=== PATIENT | male | born 1970 | race Caucasian/White ===

== ENCOUNTER 2023-12-17 13:25 | Inpatient (IN) | payer MEDICAID, SELFPAY ==
[2023-12-17] VITALS (7 sets, daily range): BP systolic 107–151; BP diastolic 66–97; PULSE 73–83; RESP 18; TEMP 36.4–36.8; O2SAT 91–95; BMI 34.0; BMI 32.9
--- NOTE | 2023-12-17 13:51 | EX.ED.SAOD ---
HPI <ROSA Araya - Last Filed: 12/17/23 15:58> History of Present Illness Chief Complaint: Substance Abuse Narrative Narrative: Patient presenting today requesting to detox from alcohol. He reports that he has detoxed in the past but never in this facility, the last time being last December. He reports that he has been drinking his entire adult life, he usually drinks about 1/5 of vodka per day. Today he had 3-4 drinks prior to arrival. He reports that he usually does go through withdrawal including shakes, sweats, and anxiety. He denies any history of withdrawal seizure. He reports that he does occasionally use other substances if they are available, last week he used methamphetamine and he does occasionally use marijuana. He denies a PMH of any chronic health conditions. PFS <ROSA Araya - Last Filed: 12/17/23 15:58> [facility] Medical History (Updated 12/17/23 @ 15:58 by ROSA Araya) Anxiety Depression Hypertension Home Medications amlodipine 5 mg tablet 5 mg PO DAILY 12/17/23 [History Last Taken 12/17/23] buspirone 10 mg tablet 10 mg PO TID 12/17/23 [History Last Taken 12/17/23] duloxetine 60 mg capsule,delayed release 60 mg PO DAILY 12/17/23 [History Last Taken Unknown] hydroxyzine pamoate 25 mg capsule 50 mg PO TID PRN anxiety 12/17/23 [History Last Taken 12/17/23] ibuprofen 600 mg tablet 600 mg PO TID PRN pain 12/17/23 [History Last Taken 12/17/23] Allergy/AdvReac Type Severity Reaction Status Date / Time No Known Allergies Allergy Verified 12/17/23 13:28 Social History Smoking Status: Current every day smoker tobacco type: cigarettes and smokeless tobacco ROS <ROSA Araya - Last Filed: 12/17/23 15:58> ROS ED Constitutional Constitutional ED: Denies chills or fever(s) Cardiovascular Cardiovascular: Denies chest pain Respiratory/Chest Respiratory/Chest: Denies cough or dyspnea Gastrointestinal Gastrointestinal: Denies abdominal pain, nausea or vomiting Musculoskeletal Musculoskeletal: Denies arthralgias or myalgias Integumentary Denies rash Neurologic Neurologic: Denies weakness Psychiatric Psychiatric: Denies anxiety, depression, suicidal ideation or suicidal thoughts EXAM <ROSA Araya - Last Filed: 12/17/23 15:58> Physical Exam Const Vital Signs: 12/17/23 13:26 12/17/23 14:26 12/17/23 14:45 Temperature 97.6 F L Temperature Source Temporal Pulse Rate 83 75 75 Respiratory Rate 18 18 18 Blood Pressure 151/94 H 129/82 H 107/66 Blood Pressure Mean 113 97 78 Pulse Ox 95 93 91 Oxygen Delivery Method Room Air Room Air Positive well nourished, well developed and no apparent distress General Appearance ED: well developed HEENT Reports normocephalic and head/scalp atraumatic Mouth ED: Yes moist mucous membranes normal Eyes PERRL and EOMs intact bilaterally Neck full ROM and supple Chest Wall inspection of chest normal Resp normal respiratory effort and clear to auscultation bilaterally Cardio regular rate and regular rhythm GI soft to palpation, non-tender, non-distended and no masses Back/Spine normal ROM and normal to inspection Extremity normal to inspection and full ROM Neuro oriented x3, CN's II-XII intact bilaterally, moves all extremities, no focal motor deficits and no sensory deficits noted Sensorium / Orientation: awake and alert Psych mental status grossly normal and thought process normal Skin no rashes or lesions noted and no wounds <Dr. Luca Gonzalez DO - Last Filed: 12/17/23 15:51> Physical Exam Const Vital Signs: 12/17/23 13:26 12/17/23 14:26 12/17/23 14:45 Temperature 97.6 F L Temperature Source Temporal Pulse Rate 83 75 75 Respiratory Rate 18 18 18 Blood Pressure 151/94 H 129/82 H 107/66 Blood Pressure Mean 113 97 78 Pulse Ox 95 93 91 Oxygen Delivery Method Room Air Room Air MDM <ROSA Araya - Last Filed: 12/17/23 15:58> [facility] MDM Narrative Medical decision making narrative: Patient presenting today requesting detox from alcohol. He is nontoxic-appearing and in no acute distress. He does not feel he is going through withdrawal at this time as he drank prior to coming in. Labs will be obtained and I will speak with the hospitalist for admission. Lab Data Lab results narrative: AST 60, ALT 89, alkaline phosphatase 121, alcohol 148, positive for cannabinoids Labs: Laboratory Results - last 24 hr 12/17/23 12/17/23 14:20 14:25 WBC 6.5 RBC 4.90 Hgb 14.9 Hct 44.5 MCV 90.8 MCH 30.4 MCHC 33.5 RDW Std Deviation 49.9 H RDW Coeff of Jacy 15.1 H Plt Count 241 MPV 9.0 Immature Gran % (Auto) 0.300 Neut % (Auto) 61.8 Lymph % (Auto) 25.3 [place] % (Auto) 9.2 Eos % (Auto) 2.5 Baso % (Auto) 0.9 Absolute Neuts (auto) 4.0 Absolute Lymphs (auto) 1.65 Nucleated RBC % 0 Sodium 140 Potassium 4.1 Chloride 108 H Carbon Dioxide 25.0 Anion Gap 7 BUN 13 Creatinine 0.94 Estim Creat Clear Calc 113.55 Est GFR (MDRD) Af Amer 107 Est GFR (MDRD) Non-Af 89 BUN/Creatinine Ratio 13.8 Glucose 80 Calcium 8.7 Total Bilirubin 0.50 AST 60 H ALT 89 H Alkaline Phosphatase 121 H Total Protein 7.5 Albumin 3.4 Globulin 4.1 Albumin/Globulin Ratio 0.8 L Urine Opiates Screen NEGATIVE Urine Methadone Screen NEGATIVE Ur Barbiturates Screen NEGATIVE Ur Phencyclidine Scrn NEGATIVE Ur Amphetamines Screen NEGATIVE MDMA (Ecstasy) Screen NEGATIVE U Benzodiazepines Scrn NEGATIVE Urine Cocaine Screen NEGATIVE U Cannabinoids Screen POSITIVE H Ur Drug Screen Comment Ethyl Alcohol 148.0 <Dr. Luca Gonzaelz, DO - Last Filed: 12/17/23 15:51> [facility] Lab Data Attestation: I reviewed the patient's lab results. Labs: Laboratory Results - last 24 hr 12/17/23 12/17/23 14:20 14:25 WBC 6.5 RBC 4.90 Hgb 14.9 Hct 44.5 MCV 90.8 MCH 30.4 MCHC 33.5 RDW Std Deviation 49.9 H RDW Coeff of Jacy 15.1 H Plt Count 241 MPV 9.0 Immature Gran % (Auto) 0.300 Neut % (Auto) 61.8 Lymph % (Auto) 25.3 [place] % (Auto) 9.2 Eos % (Auto) 2.5 Baso % (Auto) 0.9 Absolute Neuts (auto) 4.0 Absolute Lymphs (auto) 1.65 Nucleated RBC % 0 Sodium 140 Potassium 4.1 Chloride 108 H Carbon Dioxide 25.0 Anion Gap 7 BUN 13 Creatinine 0.94 Estim Creat Clear Calc 113.55 Est GFR (MDRD) Af Amer 107 Est GFR (MDRD) Non-Af 89 BUN/Creatinine Ratio 13.8 Glucose 80 Calcium 8.7 Total Bilirubin 0.50 AST 60 H ALT 89 H Alkaline Phosphatase 121 H Total Protein 7.5 Albumin 3.4 Globulin 4.1 Albumin/Globulin Ratio 0.8 L Urine Opiates Screen NEGATIVE Urine Methadone Screen NEGATIVE Ur Barbiturates Screen NEGATIVE Ur Phencyclidine Scrn NEGATIVE Ur Amphetamines Screen NEGATIVE MDMA (Ecstasy) Screen NEGATIVE U Benzodiazepines Scrn NEGATIVE Urine Cocaine Screen NEGATIVE U Cannabinoids Screen POSITIVE H Ur Drug Screen Comment Ethyl Alcohol 148.0 Treatment and Re-Evaluation Narrative: I have personally performed a face to face assessment of the patient and have reviewed the RENA Note. I performed a substantive portion of the visit including all aspects of the following. My robb findings include: History: Patient presents requesting detox from alcohol. Patient states he drinks approximately 1/5 of liquor per day. Patient states his last drink was this morning. Patient states he had 3-4 drinks this morning to prevent shaking and tremors. Patient denies any seizures. Patient states he also developed some sweats and chills. Patient states he has been weaning himself off for the past several days. Patient states he has a [facility]. Patient denies any suicidal or homicidal ideations. Exam: Vital signs are stable. Patient is afebrile. Patient is in no acute distress. Oral mucosa is pink and moist. Neck is supple. Trachea is midline. There is no JVD. Heart was regular rate and rhythm. Lungs are clear and equal bilaterally. Abdomen is soft. Bowel sounds are normal. There is no tenderness. Cranial nerves II through XII are intact. There are no focal motor or sensory deficits noted. Medical Decision Making: Medical screening labs will be obtained. CBC will be obtained to assess for leukocytosis and anemia. Comprehensive metabolic profile will be obtained to assess for hepatic function, renal function, and electrolyte abnormality. Serum alcohol level will be obtained to assess for alcohol intoxication. Urine drug screen will be obtained to assess for substance abuse. CBC was reviewed and was within normal limits. Comprehensive metabolic profile was reviewed. AST was slightly elevated at 60 and ALT was slightly elevated at 89. Alkaline phosphatase was minimally elevated at 121. The remainder is within normal limits. Urine tox screen was reviewed and was positive for cannabinoids. Serum alcohol level was reviewed and was elevated at 148. Case was discussed with the hospitalist. He will admit the patient to his service. Patient understood and was agreeable with the plan. All questions were answered. Discharge Plan Dx/Rx/DC Orders Clinical Impression: Alcohol withdrawal, Alcohol intoxication, Polysubstance abuse Disposition Disposition: Acute Care Hospital [facility]
[2023-12-17 14:30] LABS: Absolute Lymphocyte Count 1.65 X10^3/uL (0.83-4.51); Basophil# 0.06 X10^3/uL; Basophil% 0.9 % (0-1); Eosinophil# 0.16 X10^3/uL; Eosinophils% 2.5 % (0-5); Hematocrit 44.5 % (40-54); Hemoglobin 14.9 g/dL (13.0-16.5); Lymphocyte # 1.65 X10^3/ul (0.83-4.51); Lymphocyte % 25.3 % (19-41); Mean Corp Hgb Conc 33.5 g/dL (32-36); Mean Corpuscular Hgb 30.4 pg (27.0-32.0); Mean Corpuscular Volume 90.8 fL (80-94); Monocyte% 9.2 % (0-10); NRBC Flagged by Analyzer 0 % (0-5); Neutrophil # 4.04 X10^3/uL (2.7-7.7); Neutrophil % 61.8 % (47-70); Platelet Count 241 K/mm3 (150-450); RBC Distribution Width CV 15.1 % (11.6-14.6); RBC Distribution Width SD 49.9 fl (35.1-43.9); White Blood Count 6.5 K/mm3 (4.4-11.0)
[2023-12-17 14:47] LABS: ALB/GLOB Ratio 0.8 RATIO (0.9-2.4); AST(SGOT) 60 U/L (15-37); Alanine Aminotransfer ALT/SGPT 89 U/L (16-61); Albumin, Serum 3.4 g/dL (3.2-5.0); Alkaline Phosphatase 121 U/L (45-117); Anion Gap 7 (5-15); BUN 13 mg/dL (7-18); BUN/Creat Ratio 13.8 RATIO (10-20); Calcium,Total 8.7 mg/dL (8.5-10.1); Chloride 108 mmol/L (98-107); Creatinine, Serum 0.94 mg/dL (0.70-1.30); EST Glomerular Filtration Rate 89 mL/min (>60); Est Glom Filt Rate - Afr Amer 107 mL/min (>60); Estimated Creatinine Clearance 113.55 ml/min; Globulin 4.1 g/dL (2.2-4.2); Glucose 80 mg/dL (74-106); Potassium 4.1 mmol/L (3.5-5.1); Protein, Total 7.5 g/dL (6.4-8.2); Sodium Level 140 mmol/L (136-145)
[2023-12-17 15:16] LABS: Amphetamine Urine VISTA NEGATIVE (<1000 ng/mL); Barbiturate Urine VISTA NEGATIVE (< 200 ng/mL); Benzodiazepine Urine VISTA NEGATIVE (< 200 ng/mL); Cocaine Urine VISTA NEGATIVE (< 300 ng/mL); Ecstacy Urine VISTA NEGATIVE (< 500 ng/mL); Methadone Urine VISTA NEGATIVE (< 300 ng/mL); PCP Urine VISTA NEGATIVE (< 25 ng/mL); THC Urine VISTA POSITIVE (< 50 ng/mL); Vista UDS pH Range 6
--- NOTE | 2023-12-17 15:59 | NURSING ---
MED SURG JOPPERI ALCOHOL WITHDRAWAL, ALCOHOL INTOXICATION
--- NOTE | 2023-12-17 16:11 | PCM.HP.STD ---
HPI - General General Date of Service: 12/17/23 Chief Complaint: Alcohol withdrawal HPI Narrative LUCA WAETRS, is a 53 M who presents seeking treatment for alcohol withdrawal. Patient had been sober for period time but in the middle of September, started drinking again. Was drinking about 1/5 of liquor a day. Over the past week, he has been attempting to taper that down. Has been working with [employer] and has a bed available at the [facility] but they want him to go through this withdrawal program here at [facility] before enrolling into the residential program. Patient's last drink was this morning where he had a few drinks. Currently he has no withdrawal symptoms. [facility] Medical History Anxiety Depression Hypertension Home Medications amlodipine 5 mg tablet 5 mg PO DAILY 12/17/23 [History Last Taken 12/17/23] buspirone 10 mg tablet 10 mg PO TID 12/17/23 [History Last Taken 12/17/23] duloxetine 60 mg capsule,delayed release 60 mg PO DAILY 12/17/23 [History Last Taken 12/17/23] hydroxyzine pamoate 25 mg capsule 50 mg PO TID PRN anxiety 12/17/23 [History Last Taken 12/17/23] ibuprofen 600 mg tablet 600 mg PO TID PRN pain 12/17/23 [History Last Taken 12/17/23] Allergy/AdvReac Type Severity Reaction Status Date / Time No Known Allergies Allergy Verified 12/17/23 13:28 Family History (Updated 12/17/23 @ 16:[address] Luca Villalobos DO) Other Alcoholism Social History (Updated 12/17/23 @ 16:[address] Luca Villalobos DO) Smokeless tobacco user: other substance use type: marijuana and amphetamines ROS ROS Narrative All review of systems were negative except as mentioned above in the history of present illness and the other review of systems. Vital Signs Vital Signs Vital Signs: 12/17/23 13:26 12/17/23 14:26 12/17/23 14:45 Temperature 36.4 C L Temperature Source Temporal Pulse Rate 83 75 75 Respiratory Rate 18 18 18 Blood Pressure 151/94 H 129/82 H 107/66 Blood Pressure Mean 113 97 78 Pulse Ox 95 93 91 Oxygen Delivery Method Room Air Room Air 12/17/23 15:45 12/17/23 16:00 Temperature 36.8 C 36.8 C Temperature Source Oral Pulse Rate 73 73 Respiratory Rate 18 18 Blood Pressure 129/82 H 129/82 H Blood Pressure Mean 97 97 Pulse Ox 95 95 Oxygen Delivery Method Room Air Weight Weight: 110.45 kg Body Mass Index (BMI) 34.0 Physical Exam Narrative - Physical Exam General: Alert, Oriented x3, Cooperative HEENT: Atraumatic, PERRLA, EOMI, Normocephalic Oral: Moist Mucosa, No Gingival or Mucosal Lesions/ Ulcerations Neck: Supple, No JVD, Negative Carotid Bruits Lungs: Clear to auscultation, Normal air movement Cardiovascular: Regular rate, Normal S1, Normal S2, No murmurs Abdomen: Bowel Sounds Present, Soft, Non Tender, Non-Distended, No Hepato-splenomegaly Extremities: No clubbing, No cyanosis, No edema, Capillary Refill Less than 3 Seconds Skin: No rashes, No breakdown Musculoskeletal: No Tenderness to Palpation of Joints or Extremities Neurological: Neuro grossly intact Psych/Mental Status: Normal Affect, Appropriate Results Lab / Micro Data 12/17/23 14:20 12/17/23 14:20 Labs: Laboratory Results - last 24 hr 12/17/23 14:20: WBC 6.5, RBC 4.90, Hgb 14.9, Hct 44.5, MCV 90.8, MCH 30.4, MCHC 33.5, RDW Std Deviation 49.9 H, RDW Coeff of Jacy 15.1 H, Plt Count 241, MPV 9.0, Immature Gran % (Auto) 0.300, Neut % (Auto) 61.8, Lymph % (Auto) 25.3, [place] % (Auto) 9.2, Eos % (Auto) 2.5, Baso % (Auto) 0.9, Absolute Neuts (auto) 4.0, Absolute Lymphs (auto) 1.65, Nucleated RBC % 0, Sodium 140, Potassium 4.1, Chloride 108 H, Carbon Dioxide 25.0, Anion Gap 7, BUN 13, Creatinine 0.94, Estim Creat Clear Calc 113.55, Est GFR (MDRD) Af Amer 107, Est GFR (MDRD) Non-Af 89, BUN/Creatinine Ratio 13.8, Glucose 80, Calcium 8.7, Total Bilirubin 0.50, AST 60 H, ALT 89 H, Alkaline Phosphatase 121 H, Total Protein 7.5, Albumin 3.4, Globulin 4.1, Albumin/Globulin Ratio 0.8 L, Ethyl Alcohol 148.0 12/17/23 14:25: Urine Opiates Screen NEGATIVE, Urine Methadone Screen NEGATIVE, Ur Barbiturates Screen NEGATIVE, Ur Phencyclidine Scrn NEGATIVE, Ur Amphetamines Screen NEGATIVE, MDMA (Ecstasy) Screen NEGATIVE, U Benzodiazepines Scrn NEGATIVE, Urine Cocaine Screen NEGATIVE, U Cannabinoids Screen POSITIVE H, Ur Drug Screen Comment Assessment & Plan Assessment/Plan (1) Alcohol withdrawal: PLAN: Plan Anticipated alcohol withdrawal Patient not actively going through alcohol withdrawal at present but do anticipate him to start going through alcohol withdrawal within the day. Severity which will be determined but patient will be on the CIWA protocol. Have phenobarbital taper available as well as other adjunctive medications to help with his withdrawal symptoms. Thiamine and folate Patient has been working with [employer] and the plan is for [facility] to [facility] once he has completed his treatment in the hospital. Addiction medicine to assist with this disposition. Chronic conditions Hypertension: Continue with amlodipine Depression: Continue with buspirone, duloxetine. Nicotine abuse: Patient uses oral nicotine. Will have nicotine gum available. VTE prophylaxis: Not indicated given observation status. Charges/Coding Visit Charges Inpatient E&M: 82269 Init Hosp L2
[2023-12-17] MEDS: Phenobarbital 32.4 MG Tablet 64.8 MG PO ×2 (17:55→21:02)
[2023-12-17] MEDS: hydrOXYzine PAM 25 MG Capsule PO (21:06)
[2023-12-17] MEDS: Ibuprofen 600 MG Tablet PO (21:06)
[2023-12-17] MEDS: 0.9% Saline Lock 10 ML Syringe IV (21:06)
[2023-12-17] MEDS: busPIRone 15 MG TABLET 7.5 MG PO (21:07)
[2023-12-17] MEDS: traZODone 100 MG Tablet PO (22:39)
[2023-12-18] VITALS (8 sets, daily range): BP systolic 135–148; BP diastolic 75–96; PULSE 55–73; RESP 18–20; TEMP 36.5–37; O2SAT 94–97
[2023-12-18] MEDS: Phenobarbital 32.4 MG Tablet 64.8 MG PO ×6 (01:48→22:01)
[2023-12-18] MEDS: Ibuprofen 600 MG Tablet PO ×3 (05:41→22:02)
[2023-12-18] MEDS: hydrOXYzine PAM 25 MG Capsule PO ×3 (05:42→22:02)
[2023-12-18] MEDS: Folic Acid 1 MG Tablet PO (08:28)
[2023-12-18] MEDS: Thiamine Hydrochloride 100 MG Tablet PO (08:28)
--- NOTE | 2023-12-18 09:58 | PN.HOSP_ITS ---
Reason for Visit Reason for Visit: Diagnoses Alcohol use, unspecified with withdrawal, unspecified (12/17/23) Subjective Subjective Patient was seen and examined today, he has no complaints of any tremor or anxiety at this time, patient was admitted for alcohol detox yesterday. Patient states he has never been through detox here although he has been through detox in the past-the last time appears to be December 2022 per medical record. Objective Data Objective Data Vital Signs: Vital Signs Temp Pulse Resp BP Pulse Ox O2 Del Method 98.6 F 55 L 18 137/96 H 94 Room Air 12/18/23 05:40 12/18/23 05:40 12/18/23 05:40 12/18/23 05:40 12/18/23 05:40 12/18/23 05:40 Oxygen Delivery Method Room Air Weight: 107.093 kg Body Mass Index (BMI) 32.9 Intake & Output: Intake and Output for Last 24 Hours 12/16/23 12/17/23 12/18/23 23:59 23:59 23:59 Intake Total 1300 / 1300 200 / 200 Balance 1300 / 1300 200 / 200 Lab / Micro Data 12/17/23 14:20 12/17/23 14:20 Labs: Laboratory Results - last 24 hr 12/17/23 14:20: WBC 6.5, RBC 4.90, Hgb 14.9, Hct 44.5, MCV 90.8, MCH 30.4, MCHC 33.5, RDW Std Deviation 49.9 H, RDW Coeff of Jacy 15.1 H, Plt Count 241, MPV 9.0, Immature Gran % (Auto) 0.300, Neut % (Auto) 61.8, Lymph % (Auto) 25.3, [place] % (Auto) 9.2, Eos % (Auto) 2.5, Baso % (Auto) 0.9, Absolute Neuts (auto) 4.0, Absolute Lymphs (auto) 1.65, Nucleated RBC % 0, Sodium 140, Potassium 4.1, Chloride 108 H, Carbon Dioxide 25.0, Anion Gap 7, BUN 13, Creatinine 0.94, Estim Creat Clear Calc 113.55, Est GFR (MDRD) Af Amer 107, Est GFR (MDRD) Non-Af 89, BUN/Creatinine Ratio 13.8, Glucose 80, Calcium 8.7, Total Bilirubin 0.50, AST 60 H, ALT 89 H, Alkaline Phosphatase 121 H, Total Protein 7.5, Albumin 3.4, Globulin 4.1, Albumin/Globulin Ratio 0.8 L, Ethyl Alcohol 148.0 12/17/23 14:25: Urine Opiates Screen NEGATIVE, Urine Methadone Screen NEGATIVE, Ur Barbiturates Screen NEGATIVE, Ur Phencyclidine Scrn NEGATIVE, Ur Amphetamines Screen NEGATIVE, MDMA (Ecstasy) Screen NEGATIVE, U Benzodiazepines Scrn NEGATIVE, Urine Cocaine Screen NEGATIVE, U Cannabinoids Screen POSITIVE H, Ur Drug Screen Comment Physical Exam Const alert, oriented x3, no apparent distress and healthy appearing General Appearance: cooperative, well kempt and well developed Orientation / Consciousness: awake, oriented to person, oriented to place and oriented to time HEENT normocephalic and moist oral mucous membranes Eyes PERRL, EOMs intact bilaterally and conjunctivae normal Neck supple, no JVD, thyroid normal and no carotid bruits General: trachea midline Resp normal respiratory effort and clear to auscultation bilaterally Auscultation: Negative for rales, rhonchi or wheezes Cardio regular rate, regular rhythm, no murmurs, no rub and no gallops GI normal to inspection, nondistended, normoactive bowel sounds, soft to palpation, non-tender and non-distended Extremity no clubbing, cyanosis or edema Skin no rashes or lesions noted General Skin Exam: no breakdown Neuro oriented x3, CN's II-XII intact bilaterally, no focal motor deficits and no sensory deficits noted Sensorium / Orientation: awake and alert Speech: speech normal Psych affect normal Assessment & Plan Assessment/Plan (1) Alcohol withdrawal: PLAN: Plan 1. Acute alcohol withdrawal-patient will be given medication per protocol, he will be seen by addiction social science instructor tomorrow #2 chronic alcoholism-complicates care, management, recovery, and prognosis #3 hypertension-patient will remain on his home medication, he will be adjusted as needed, blood pressure will be monitored #4 chronic depression-patient is on Cymbalta #5 polysubstance abuse-complicates care, management, recovery, and prognosis Total clinical time spent by myself addressing the patient's medical issues, reviewing all of his data, and collaborating with the patient's care team: 35- minute Charges/Coding Visit Charges Inpatient E&M: 78868 Subs Hosp L2
[2023-12-18] MEDS: busPIRone 15 MG TABLET 7.5 MG PO ×2 (10:03→22:02)
[2023-12-18] MEDS: DULoxetine Hcl 60 MG Capsule PO (10:03)
[2023-12-18] MEDS: amLODIPine 5 MG Tablet PO (10:03)
[2023-12-18] MEDS: Gabapentin 300 MG Capsule PO (17:57)
[2023-12-18] MEDS: traZODone 100 MG Tablet PO (22:05)
[2023-12-19] MEDS: Phenobarbital 32.4 MG Tablet 64.8 MG PO ×3 (01:53→09:53)
[2023-12-19] MEDS: hydrOXYzine PAM 25 MG Capsule PO (06:02)
[2023-12-19] MEDS: Ibuprofen 600 MG Tablet PO (06:02)
[2023-12-19 06:06] VITALS: BP 127/85; PULSE 62; RESP 18; TEMP 36.4; O2SAT 94
--- NOTE | 2023-12-19 08:58 | PCM.DC.SUM ---
Providers Date of Admission: 12/17/23 Date of Discharge: 12/19/23 Primary Care Physician: Isabela Primary Care Phys Reason For Visit: ALCOHOL DETOX Diagnosis Discharge Diagnosis (1) Alcohol withdrawal: Status: Acute Code(s): F10.939 - Alcohol use, unspecified with withdrawal, unspecified Medications at Discharge Home Medications amlodipine 5 mg tablet 5 mg PO DAILY 12/17/23 buspirone 10 mg tablet 10 mg PO TID 12/17/23 duloxetine 60 mg capsule,delayed release 60 mg PO DAILY 12/17/23 hydroxyzine pamoate 25 mg capsule 50 mg PO TID PRN anxiety 12/17/23 ibuprofen 600 mg tablet 600 mg PO TID PRN pain 12/17/23 Hospital Course Summary of Care Provided Minutes Spent on Discharge: 32 Hospital Course: Patient is a 53-year-old gentleman with history of polysubstance dependence including alcohol presented with acute alcohol withdrawal Acute alcohol withdrawal ? Patient admitted to regular nursing floor managed with phenobarb taper. Discharged home to follow-up with 180 as outpatient 2. Hypertension - Blood pressure controlled, home medications continued with dose adjustment as needed 3. Class I obesity with BMI of 33 ? Weight loss advised 4. Depression ? Patient is on duloxetine did continue 5. Polysubstance dependence ? Including history of amphetamine use complicating care, counseled on cessation Physical Exam Const Constitutional Narrative: GENERAL: cooperative HEENT: Atraumatic; normocephalic EYES; Anicteric, Normal Conjunctiva NECK; supple, normal thyroid, RESPIRATORY: Diminished to auscultation CARDIOVASCULAR: Regular S1 S2, GI: soft, normoactive bowel sounds, : No Renal angle tenderness; EXTREMITIES: No edema, no clubbing, MUSCULOSKELETAL: no muscle wasting NEURO: Awake; no lateralizing signs. SKIN: No Rash PSYCH; Flat affect Weight / BMI Weight Weight: 107.093 kg Body Mass Index (BMI) 32.9 ABG / Lab / Microbiology Data 12/17/23 14:20 12/17/23 14:20 D/C Instructions Discharge Diet: No restrictions Discharge Activity: Return to Normal Activity Call your doctor if you observe: Fever of 101 or Higher, Shortness of breath, Fainting spells and Chest pain Meaningful Use Info Meaningful Use Diagnoses (Choose all that apply): None applicable Discharge Plan Admission Admit Date/Time: 12/17/23 15:51 Attending Provider: Umang Bassett Primary Care Provider: Care Physician,No Primary Consulting Providers: Luca Villalobos; Anatoly Peck Discharge Orders/Prescriptions Prescriptions: No Action amlodipine 5 mg tablet 5 mg PO DAILY ibuprofen 600 mg tablet 600 mg PO TID PRN (Reason: pain) Patient Comments: PT ONLY TAKES 1-2 TIMES A DAY hydroxyzine pamoate 25 mg capsule 50 mg PO TID PRN (Reason: anxiety) duloxetine 60 mg capsule,delayed release(DR/EC) 60 mg PO DAILY buspirone 10 mg tablet 10 mg PO TID Referrals / Follow Up: Care Physician,No Primary [Primary Care Provider] - Disposition Disposition (needs filled in before D/C Order can be placed): Home, Self Care Charges/Coding Visit Charges Inpatient E&M: 96013 Disch Hosp >30min
[2023-12-19] MEDS: Thiamine Hydrochloride 100 MG Tablet PO (09:53)
[2023-12-19] MEDS: Folic Acid 1 MG Tablet PO (09:53)
[2023-12-19] MEDS: amLODIPine 5 MG Tablet PO (09:53)
[2023-12-19] MEDS: DULoxetine Hcl 60 MG Capsule PO (09:53)
[2023-12-19] MEDS: busPIRone 15 MG TABLET 7.5 MG PO (09:54)
[2023-12-19 10:00] VITALS: BP 130/85; PULSE 55; RESP 14; TEMP 36.5; O2SAT 97
--- NOTE | 2023-12-19 10:09 | PHA.DC.MR.R ---
Pharmacy [place] Med Reconciliation Pharmacy Service has performed discharge medication reconciliation for this patient. The patient's discharge medication list was reviewed for discrepancies and discrepancies were resolved. Medications at Discharge Home Medications amlodipine 5 mg tablet 5 mg PO DAILY 12/17/23 buspirone 10 mg tablet 10 mg PO TID 12/17/23 duloxetine 60 mg capsule,delayed release 60 mg PO DAILY 12/17/23 hydroxyzine pamoate 25 mg capsule 50 mg PO TID PRN anxiety 12/17/23 ibuprofen 600 mg tablet 600 mg PO TID PRN pain 12/17/23
--- NOTE | 2023-12-19 10:19 | ADDICTION ---
Met w/pt to complete RAMP assessments. Pt has been approved for residential treatment at [facility]. Pt was screened for Vivitrol. Pt met criteria and will be given his first shot prior to d/c. He will follow up with Dr. Sharma for continued doses. Pt will be transported to [facility] by [facility] this afternoon.
[2023-12-19] MEDS: Naltrexone Microspheres 380 MG SYRINGE IM (12:09)
== END 2023-12-19 13:00 | disposition home or self-care (01) | DRG 772 ==
LOC: ED 15:51 → MS3 18:20
PROVIDERS: Physician Assistant; Emergency Provider Emergency Medicine; Visit Provider Internal Medicine
DX: F10.220 Alcohol dependence with intoxication, uncomplicated (principal); E66.9 Obesity, unspecified; F19.10 Other psychoactive substance abuse, uncomplicated; F10.239 Alcohol dependence with withdrawal, unspecified; I10 Essential (primary) hypertension; F32.A Depression, unspecified; F15.90 Other stimulant use, unspecified, uncomplicated; F12.90 Cannabis use, unspecified, uncomplicated; F41.9 Anxiety disorder, unspecified; F17.220 Nicotine dependence, chewing tobacco, uncomplicated; F17.210 Nicotine dependence, cigarettes, uncomplicated; Y90.6 Blood alcohol level of 120-199 mg/100 ml; Z68.33 Body mass index [BMI] 33.0-33.9, adult
CPT/HCPCS: 80053; 80307; 80320; 85025; 99283; A4216; G0480

== ENCOUNTER 2025-02-15 15:32 | Observation (INO) | payer MEDICAID, SELFPAY ==
[2025-02-15] VITALS (7 sets, daily range): BP systolic 117–136; BP diastolic 73–99; PULSE 78–98; RESP 15–22; TEMP 36.4–36.9; O2SAT 96–100; BMI 35.6; BMI 35.5
--- NOTE | 2025-02-15 15:47 | EKG12_ITS ---
Test Reason : SUB ABUSE Blood Pressure : */* mmHG Vent. Rate : 99 BPM Atrial Rate : 86 BPM P-R Int : 138 ms QRS Dur : 84 ms QT Int : 390 ms P-R-T Axes : 37 15 14 degrees QTcB Int : 500 ms Sinus rhythm with Premature supraventricular complexes Nonspecific ST abnormality Prolonged QT Abnormal ECG Confirmed by Blas Bergman ([id number]), subeditor PERI UGALDE ([id number]) on 02/18/2025 10:49:48 AM Referred By: Kris Wood Confirmed By: Blas Bergman
--- NOTE | 2025-02-15 15:49 | EX.ED.SAOD ---
HPI History of Present Illness Chief Complaint: Substance Abuse Detail of Chief Complaint: Requesting detox from alcohol Informant: patient Narrative Narrative: Patient presents to the emergency department requesting detox from alcohol. Patient states that he was admitted about a year and a half ago for same and had done relatively well. Patient states that he relapsed for the first time in September of this year and had been staying in a sober home. Patient had a blowup with him roommate yesterday and he was kicked out of this sober home. Patient states his last drink was about an hour ago. Normally he drinks about 1/5-1/5 and a half of liquor and beer combined over the course of the day. Has had intermittent nausea and vomiting. He denies blood in stool or black tarry stool. He also describes some chest pressure that he has sometimes when he drinks but not necessarily exertional. Patient has history of a ablation in 2019. No heart history otherwise. He has no stenting. He does smoke cigarettes. [facility] Medical History Anxiety Depression Hypertension Home Medications ?Medication ?Instructions ?Recorded ?Last Taken ?Type amlodipine 5 mg tablet 5 mg PO DAILY 12/17/23 02/15/25 History buspirone 10 mg tablet 10 mg PO TID 12/17/23 02/15/25 History duloxetine 60 mg capsule,delayed 60 mg PO DAILY 12/17/23 02/15/25 History release hydroxyzine pamoate 25 mg capsule 50 mg PO TID PRN anxiety 12/17/23 02/15/25 History ibuprofen 600 mg tablet 600 mg PO TID PRN pain 12/17/23 02/15/25 History duloxetine 30 mg capsule,delayed 30 mg PO QHS 02/15/25 Unknown History release Allergy/AdvReac Type Severity Reaction Status Date / Time No Known Allergies Allergy Verified 02/15/25 15:33 Family History (Updated 12/17/23 @ 16:[address] Luca Villalobos DO) Other Alcoholism Social History (Updated 12/17/23 @ 16:[address] Luca Villalobos DO) Smoking Status: Current every day smoker tobacco type: cigarettes Smokeless tobacco user: other substance use type: marijuana and amphetamines ROS ROS ED Review of Systems ROS Unobtainable: other Constitutional Constitutional ED: Reports lethargy; Denies chills, fever(s), sweats or weight loss Eyes Eyes: Denies blurry vision, change in vision or diplopia ENT ENT ED: Denies rhinorrhea or sore throat Cardiovascular Cardiovascular: Reports chest pain; Denies orthopnea or racing heartbeat Respiratory/Chest Respiratory/Chest: Denies cough, dyspnea, dyspnea on exertion, orthopnea or sputum Gastrointestinal Gastrointestinal: Reports nausea and vomiting; Denies abdominal pain or diarrhea Genitourinary Genitourinary ED: Denies dysuria, hematuria or urinary frequency Musculoskeletal Musculoskeletal: Denies arthralgias, back pain, myalgias or neck pain Integumentary Denies abscess, Abrasions or rash Neurologic Neurologic: Denies headache(s) or weakness Psychiatric Psychiatric: Denies anxiety, depression or suicidal thoughts Endocrine Endocrinology: Denies polydipsia, polyphagia or polyuria Hematologic/Lymphatic Hematologic/Lymphatic: Denies easy bleeding, easy bruising or lymphadenopathy Allergic/Immunologic Allergic/Immunologic ED: Denies mouth swelling, tongue swelling or urticaria EXAM Physical Exam Const Vital Signs: 02/15/25 15:33 02/15/25 16:33 02/15/25 17:00 Temperature 97.8 F Temperature Source Temporal Pulse Rate 98 94 78 Respiratory Rate 18 22 H 15 Blood Pressure 136/99 H 117/73 118/78 Blood Pressure Mean 111 87 91 Pulse Ox 100 98 96 Oxygen Delivery Method Room Air Room Air Room Air 02/15/25 17:34 Temperature 98.4 F Temperature Source Pulse Rate 78 Respiratory Rate 16 Blood Pressure 118/78 Blood Pressure Mean 91 Pulse Ox 96 Oxygen Delivery Method Positive well nourished and well developed General Appearance ED: well developed and NAD HEENT Reports TM's clear and moist mucous membranes normocephalic and atraumatic; Negative for trauma or tenderness Tympanic Membrane ED: Yes TM's clear Eyes PERRL and EOMs intact bilaterally General Eye ED: Negative for pale conjunctiva or scleral icterus Neck no lymphadenopathy, supple and no JVD General: Negative for tenderness Chest Wall inspection of chest normal and palpation of chest normal Chest: Negative for tenderness Resp normal respiratory effort and clear to auscultation bilaterally Effort and Inspection: Negative for respiratory distress or pain with movement Auscultation: Negative for rhonchi, wheezes or diminished lung sounds Cardio regular rate, regular rhythm, S1 normal heart sound, S2 normal heart sound and no murmurs Peripheral Pulses: pulses 2+ throughout GI normal to inspection, nondistended, normoactive bowel sounds, soft to palpation, non-tender, non-distended and no masses Back/Spine no CVA tenderness and no thoracic nor lumbar tenderness Extremity normal to inspection General Extremety ED: Negative for edema General Extremity: Negative for edema Neuro oriented x3, CN's II-XII intact bilaterally, no sensory deficits noted and gait normal Sensorium / Orientation: awake, alert, oriented to person, oriented to place and oriented to time Motor Exam: strength 5/5 throughout and strength abnormal Psych mental status grossly normal Skin no rashes or lesions noted and no wounds MDM MDM MDM Narrative Medical decision making narrative: Patient presents to the ER requesting detox from alcohol. Mentions that has been having some chest pressure or discomfort when he is drinking. Does not typically noted when he is not drinking. It is not exertional. He has no heart history. IV line established. EKG obtained arrival shows sinus rhythm with ventricular rate of [address] changes and PACs. CBC with differential shows a white count of 6.9 with hemoglobin 14.8 and platelet count of 216. Chemistries unremarkable. Glucose 142. AST was elevated 153 and ALT was 115. Alcohol was 97.6. Toxicology screen pending. Troponin was normal at 15. Discussed case with hospitalist to evaluate patient for admission for alcohol detox. I do not feel he is having acute coronary syndrome. Lab Data Attestation: I reviewed the patient's lab results. Labs: Laboratory Results - last 24 hr 02/15/25 15:55 WBC 6.9 RBC 4.82 Hgb 14.8 Hct 42.9 MCV 89.0 MCH 30.7 MCHC 34.5 RDW Std Deviation 40.0 RDW Coeff of Jacy 12.1 Plt Count 216 MPV 9.1 Immature Gran % (Auto) 0.300 Neut % (Auto) 66.2 Lymph % (Auto) 23.7 [place] % (Auto) 6.9 Eos % (Auto) 1.9 Baso % (Auto) 1.0 Absolute Neuts (auto) 4.6 Absolute Lymphs (auto) 1.64 Nucleated RBC % 0 Sodium 135 Potassium 3.3 Chloride 96 L Carbon Dioxide 20.7 L Anion Gap 18 H BUN 17 Creatinine 1.19 Estim Creat Clear Calc 87.20 Est GFR (MDRD) Non-Af 72 BUN/Creatinine Ratio 14.6 Glucose 142 H Calcium 9.3 Total Bilirubin 1.02 AST 153 H ALT 115 H Alkaline Phosphatase 112 Troponin T High Sens 15 Total Protein 7.8 Albumin 4.5 Globulin 3.2 Albumin/Globulin Ratio 1.4 Ethyl Alcohol 97.6 H EKG Initial EKG: Attestation: I personally reviewed and interpreted this EKG as follows: Comments: Sinus rhythm with ventricular rate of of [address] changes and PACs Prior EKG tracings: not available for review Discharge Plan Triage Chief Complaint: Substance Abuse ED Provider: Kris Wood Dx/Rx/DC Orders Clinical Impression: Alcohol intoxication, Desire for detoxification Prescriptions: No Action amlodipine 5 mg tablet 5 mg PO DAILY ibuprofen 600 mg tablet 600 mg PO TID PRN (Reason: pain) Patient Comments: PT ONLY TAKES 1-2 TIMES A DAY hydroxyzine pamoate 25 mg capsule 50 mg PO TID PRN (Reason: anxiety) duloxetine 60 mg capsule,delayed release(DR/EC) 60 mg PO DAILY buspirone 10 mg tablet 10 mg PO TID duloxetine 30 mg capsule,delayed release(DR/EC) 30 mg PO QHS Primary Care Provider: Juanis Vazquez Referrals: Care Physician,No Primary [Non-Staff] - Print Language: Chinese Disposition Disposition: Acute Care [facility]
[2025-02-15] MEDS: Lorazepam 2 MG/ML WCH Syringe 1 MG IV (15:58)
[2025-02-15] MEDS: Ondansetron 4 MG/2 ML Vial IV (15:58)
[2025-02-15 16:26] LABS: Absolute Lymphocyte Count 1.64 X10^3/uL (0.83-4.51); Absolute Neutrophil Count 4.6 X10^3/uL (2.0-7.7); Basophil# 0.07 X10^3/uL; Eosinophil# 0.13 X10^3/uL; Eosinophils% 1.9 % (0-5); Hematocrit 42.9 % (40-54); Hemoglobin 14.8 g/dL (13.0-16.5); Lymphocyte # 1.64 X10^3/ul (0.83-4.51); Lymphocyte % 23.7 % (19-41); Mean Corp Hgb Conc 34.5 g/dL (32-36); Mean Corpuscular Hgb 30.7 pg (27.0-32.0); Mean Platelet Vol. 9.1 fl (6.2-12.0); Monocyte# 0.48 X10^3/uL; Monocyte% 6.9 % (0-10); NRBC Flagged by Analyzer 0 % (0-5); Neutrophil # 4.59 X10^3/uL (2.7-7.7); Neutrophil % 66.2 % (47-70); Platelet Count 216 K/mm3 (150-450); RBC Distribution Width CV 12.1 % (11.6-14.6); Red Blood Count 4.82 M/mm3 (4.6-6.2); White Blood Count 6.9 K/mm3 (4.4-11.0)
[2025-02-15 16:32] LABS: Troponin T High Sensitivity 15 ng/L (<=22)
[2025-02-15 16:36] LABS: Alcohol, Blood (Medical)-Serum 97.6 mg/dL (<=10.0)
--- NOTE | 2025-02-15 17:14 | CM.ED ---
Social Work SW met with patient, introduced self and role at [facility]. Patient accepting of visit. Patient presented to ED for the RAMP program, however stated concerns related to his Care source lapsing. FLORENTINO offered to contact Phuong with [facility] to meet with patient on Tuesday to reestablish coverage. Patient thankful for same. Phuong called, message left for Phuong to meet with patient on Tuesday. No further needs identified at this time. Adrienne Peña, RADIAL SAW OPERATOR, FAMILY HEALTH NURSE PRACTITIONER
[2025-02-15 17:29] LABS: ALB/GLOB Ratio 1.4 RATIO (0.9-2.4); AST(SGOT) 153 U/L (<=37); Alanine Aminotransfer ALT/SGPT 115 U/L (<=46); Albumin, Serum 4.5 g/dL (3.5-5.0); Alkaline Phosphatase 112 U/L (40-129); Anion Gap 18 (5-15); BUN 17 mg/dL (4-19); BUN/Creat Ratio 14.6 RATIO (10-20); Calcium,Total 9.3 mg/dL (7.6-11.0); Carbon Dioxide 20.7 mmol/L (21.0-32.0); Chloride 96 mmol/L (98-108); Creatinine, Serum 1.19 mg/dL (0.70-1.20); EST Glomerular Filtration Rate 72 (>60); Globulin 3.2 g/dL (2.2-4.2); Glucose 142 mg/dL (70-99); Potassium 3.3 mmol/L (3.3-5.1); Protein, Total 7.8 g/dL (5.9-8.4); Sodium Level 135 mmol/L (133-145); Total Bilirubin 1.02 mg/dL (0.00-1.30)
--- NOTE | 2025-02-15 17:42 | PCM.HP.STD ---
HPI - General General Date of Admission: 02/15/25 Date of Service: 02/15/25 Chief Complaint: Alcohol detoxification HPI Narrative LUCA WATERS, is a 55 M with past medical history of anxiety, depression, alcohol use disorder, nicotine abuse who presents to the ED with desire for alcohol detoxification He is a heavy alcohol user and his last drink was about 1 hour before presentation, drinks about 1/5 of locating a liquor every day and smokes half pack cigarettes daily, no other drug use. Previously admitted to [facility] for detoxification about 14 months back, and maintain sobriety for 10 months, but has been drinking steadily for the last 4 months No symptoms other than that Has been compliant with his medications for hypertension and depression Has good social support At the time of presentation in the ED BP 118/78, pulse 78, temp 98.4, oxygen saturation 96 WBC 6.9, hemoglobin 14.8, platelet count 216, sodium 135, potassium 3.3, chloride 96, BUN 17, creatinine 1.1, AST 153, ALT 115 alk phos 112, troponin T 15, bilirubin 1.02, Ethyl alcohol 97.6 [facility] Medical History Anxiety Depression Hypertension Home Medications ?Medication ?Instructions ?Recorded ?Last Taken ?Type amlodipine 5 mg tablet 5 mg PO DAILY 12/17/23 02/15/25 History buspirone 10 mg tablet 10 mg PO TID 12/17/23 02/15/25 History duloxetine 60 mg capsule,delayed 60 mg PO DAILY 12/17/23 02/15/25 History release hydroxyzine pamoate 25 mg capsule 50 mg PO TID PRN anxiety 12/17/23 02/15/25 History ibuprofen 600 mg tablet 600 mg PO TID PRN pain 12/17/23 02/15/25 History duloxetine 30 mg capsule,delayed 30 mg PO QHS 02/15/25 Unknown History release Allergy/AdvReac Type Severity Reaction Status Date / Time No Known Allergies Allergy Verified 02/15/25 15:33 Family History (Updated 12/17/23 @ 16:[address] Luca Villalobos DO) Other Alcoholism Social History (Updated 12/17/23 @ 16:[address] Luca Villalobos DO) Smoking Status: Current every day smoker tobacco type: cigarettes Smokeless tobacco user: other substance use type: marijuana and amphetamines ROS Review of Systems ROS Unobtainable: Denies due to encephalopathy, due to endotracheal tube, due to mental condition, due to mental status or other Constitutional Constitutional: Denies anorexia, change in weight, chills, fatigue, fever(s), malaise, night sweats, weakness or other Eyes Eyes: Denies blurry vision, change in eye color, change in vision, discharge from eye(s), double vision, erythema, eye pain, loss of vision or other ENT HEENT: Denies abnormal hearing, dysphagia, ear pain, epistaxis, headache(s), hearing loss, nasal congestion, nasal discharge, post nasal drip, sinus pressure, sore throat or other Cardiovascular Cardiovascular: Denies chest pain, claudication, dyspnea on exertion, edema, lightheadedness, orthopnea, palpitations, paroxysmal nocturnal dyspnea, rapid heart rate, syncope or other Respiratory/Chest Respiratory/Chest: Denies cough, dyspnea, excessive phlegm production, hemoptysis, productive cough, shortness of breath at rest, shortness of breath with exertion, wheezing or other Gastrointestinal Gastrointestinal: Denies abdominal pain, coffee ground emesis, constipation, diarrhea, dyspepsia, hematemesis, hematochezia, loose stools, melena, nausea, vomiting or other Genitourinary Genitourinary: Denies burning urination, difficulty urinating, dysuria, hematuria, nocturia, urinary frequency, urinary hesitancy, urinary incontinence, urinary urgency or other Musculoskeletal Musculoskeletal: Denies arthralgias, back pain, joint pain, joint stiffness, joint swelling, myalgias, neck pain or other Neurologic Neurologic: Denies abnormal gait, abnormal speech, confusion, disequilibrium, dizziness, focal weakness, headache(s), numbness, paresthesias, seizure-like activity, seizures, syncope, tingling, tremor(s) or other Psychiatric Psychiatric: Denies anxiety, depression, homicidal ideation, suicidal ideation or other Endocrine Endocrinology: Denies change in body appearance, cold intolerance, excessive sweating, heat intolerance, polydipsia, polyuria or other Hematologic/Lymphatic Hematologic/Lymphatic: Denies anemia, easy bleeding, easy bruising, lymphadenopathy or other Vital Signs Vital Signs Vital Signs: 02/15/25 15:33 02/15/25 16:33 02/15/25 17:00 Temperature 97.8 F Temperature Source Temporal Pulse Rate 98 94 78 Respiratory Rate 18 22 H 15 Blood Pressure 136/99 H 117/73 118/78 Blood Pressure Mean 111 87 91 Pulse Ox 100 98 96 Oxygen Delivery Method Room Air Room Air Room Air 02/15/25 17:34 Temperature 98.4 F Temperature Source Pulse Rate 78 Respiratory Rate 16 Blood Pressure 118/78 Blood Pressure Mean 91 Pulse Ox 96 Oxygen Delivery Method Weight Weight: 248 lb 12.8 oz Body Mass Index (BMI) 35.6 Physical Exam Const alert, oriented x3 and no apparent distress HEENT normocephalic and head/scalp atraumatic Eyes PERRL and EOMs intact bilaterally Neck no lymphadenopathy and supple Resp normal respiratory effort and no retractions Cardio regular rate and regular rhythm GI normal to inspection, nondistended, normoactive bowel sounds Extremity normal to inspection and full ROM Neuro oriented x3 and CN's II-XII intact bilaterally Psych affect normal Results Lab / Micro Data 02/15/25 15:55 02/15/25 15:55 Labs: Laboratory Results - last 24 hr 02/15/25 15:55: WBC 6.9, RBC 4.82, Hgb 14.8, Hct 42.9, MCV 89.0, MCH 30.7, MCHC 34.5, RDW Std Deviation 40.0, RDW Coeff of Jacy 12.1, Plt Count 216, MPV 9.1, Immature Gran % (Auto) 0.300, Neut % (Auto) 66.2, Lymph % (Auto) 23.7, [place] % (Auto) 6.9, Eos % (Auto) 1.9, Baso % (Auto) 1.0, Absolute Neuts (auto) 4.6, Absolute Lymphs (auto) 1.64, Nucleated RBC % 0, Sodium 135, Potassium 3.3, Chloride 96 L, Carbon Dioxide 20.7 L, Anion Gap 18 H, BUN 17, Creatinine 1.19, Estim Creat Clear Calc 87.20, Est GFR (MDRD) Non-Af 72, BUN/Creatinine Ratio 14.6, Glucose 142 H, Calcium 9.3, Total Bilirubin 1.02, AST 153 H, ALT 115 H, Alkaline Phosphatase 112, Troponin T High Sens 15, Total Protein 7.8, Albumin 4.5, Globulin 3.2, Albumin/Globulin Ratio 1.4, Ethyl Alcohol 97.6 H Assessment & Plan Assessment/Plan (1) Polysubstance abuse: PLAN: Plan 55-year-old male with history of polysubstance abuse, anxiety, presents to the hospital for desire for inpatient detoxification #Alcohol use disorder - Monitoring based on [facility] protocol - Symptom management using gabapentin, dicyclomine, hydroxyzine, Zofran - Thiamine supplementation - Lorazepam taper #Nicotine dependence - Nicotine patches ordered #Acute alcoholic hepatitis - AST ALT both are elevated - Monitor PT/INR # Depression - Continue home medications # HTN - Continue amlodipine # DVT - Low risk - Encourage mobilization # CODE -Full code
[2025-02-15 18:49] LABS: Troponin T High Sens 2 HR 14 ng/L (<=22)
[2025-02-15 19:01] LABS: International Normalized Ratio 1.1; Prothrombin Time (Protime)PT. 14.6 SECONDS (11.7-14.9)
[2025-02-15] MEDS: LORazepam 1 MG Tablet PO ×2 (20:11→23:53)
[2025-02-15 20:27] LABS: Amphetamine Urine NEGATIVE (<1000 ng/mL); Barbiturate Urine NEGATIVE (< 200 ng/mL); Benzodiazepine Urine NEGATIVE (< 200 ng/mL); Buprenorphine Urine NEGATIVE (< 200 ng/mL); Cocaine Urine NEGATIVE (< 300 ng/mL); Fentanyl, Urine NEGATIVE; Methadone Urine NEGATIVE (< 300 ng/mL); Opiates Urine NEGATIVE (< 300 ng/mL); Oxycodone, Urine NEGATIVE (< 100 ng/mL); PCP Urine NEGATIVE (< 25 ng/mL); THC Urine NEGATIVE (< 50 ng/mL)
[2025-02-15 21:26] LABS: Troponin T High Sens 4 HR 14 ng/L (<=22)
[2025-02-15] MEDS: busPIRone 5 MG Tablet 10 MG PO (22:24)
[2025-02-15] MEDS: DULoxetine Hcl 30 MG Capsule PO (22:25)
[2025-02-16] VITALS (7 sets, daily range): BP systolic 127–151; BP diastolic 87–95; PULSE 71–88; RESP 16–20; TEMP 36.6–37; O2SAT 93–97
[2025-02-16] MEDS: LORazepam 1 MG Tablet PO ×6 (03:22→23:03)
[2025-02-16] MEDS: busPIRone 5 MG Tablet 10 MG PO ×3 (07:00→23:03)
[2025-02-16 07:17] LABS: Absolute Lymphocyte Count 1.34 X10^3/uL (0.83-4.51); Absolute Neutrophil Count 2.7 X10^3/uL (2.0-7.7); Basophil# 0.05 X10^3/uL; Eosinophil# 0.17 X10^3/uL; Eosinophils% 3.5 % (0-5); Hematocrit 41.7 % (40-54); Hemoglobin 14.3 g/dL (13.0-16.5); Lymphocyte # 1.34 X10^3/ul (0.83-4.51); Lymphocyte % 27.9 % (19-41); Mean Corp Hgb Conc 34.3 g/dL (32-36); Mean Corpuscular Volume 90.5 fL (80-94); Mean Platelet Vol. 9.4 fl (6.2-12.0); Monocyte% 10.4 % (0-10); NRBC Flagged by Analyzer 0 % (0-5); Neutrophil # 2.73 X10^3/uL (2.7-7.7); Platelet Count 189 K/mm3 (150-450); RBC Distribution Width CV 12.1 % (11.6-14.6); RBC Distribution Width SD 40.1 fl (35.1-43.9); Red Blood Count 4.61 M/mm3 (4.6-6.2); White Blood Count 4.8 K/mm3 (4.4-11.0)
--- NOTE | 2025-02-16 07:49 | PCM.PN.HOSP ---
Reason for Visit Reason for Visit: Diagnoses Other psychoactive substance abuse, uncomplicated (02/15/25) Objective Data Objective Data Vital Signs: Vital Signs Temp Pulse Resp BP Pulse Ox O2 Del Method 98.2 F 71 18 141/94 H 96 Room Air 02/16/25 07:48 02/16/25 07:48 02/16/25 07:48 02/16/25 07:48 02/16/25 07:48 02/16/25 07:48 Oxygen Delivery Method Room Air Weight: 247 lb 9.266 oz Body Mass Index (BMI) 35.5 Intake & Output: Intake and Output for Last 24 Hours 02/14/25 02/15/25 02/16/25 23:59 23:59 23:59 Intake Total 600 / 600 Balance 600 / 600 Lab / Micro Data 02/16/25 05:32 02/16/25 05:32 Labs: Laboratory Results - last 24 hr 02/15/25 15:55: WBC 6.9, RBC 4.82, Hgb 14.8, Hct 42.9, MCV 89.0, MCH 30.7, MCHC 34.5, RDW Std Deviation 40.0, RDW Coeff of Jacy 12.1, Plt Count 216, MPV 9.1, Immature Gran % (Auto) 0.300, Neut % (Auto) 66.2, Lymph % (Auto) 23.7, [place] % (Auto) 6.9, Eos % (Auto) 1.9, Baso % (Auto) 1.0, Absolute Neuts (auto) 4.6, Absolute Lymphs (auto) 1.64, Nucleated RBC % 0, Sodium 135, Potassium 3.3, Chloride 96 L, Carbon Dioxide 20.7 L, Anion Gap 18 H, BUN 17, Creatinine 1.19, Estim Creat Clear Calc 87.20, Est GFR (MDRD) Non-Af 72, BUN/Creatinine Ratio 14.6, Glucose 142 H, Calcium 9.3, Total Bilirubin 1.02, AST 153 H, ALT 115 H, Alkaline Phosphatase 112, Troponin T High Sens 15, Total Protein 7.8, Albumin 4.5, Globulin 3.2, Albumin/Globulin Ratio 1.4, Ethyl Alcohol 97.6 H 02/15/25 17:05: Urine Opiates Screen NEGATIVE, U Buprenorphine Qual NEGATIVE, Ur Oxycodone Screen NEGATIVE, Urine Methadone Screen NEGATIVE, Urine Fentanyl Screen NEGATIVE, Ur Barbiturates Screen NEGATIVE, Ur Phencyclidine Scrn NEGATIVE, Ur Amphetamines Screen NEGATIVE, U Benzodiazepines Scrn NEGATIVE, Urine Cocaine Screen NEGATIVE, U Cannabinoids Screen NEGATIVE 02/15/25 17:57: PT 14.6, INR 1.1, Troponin T Hi Sens 2 Hr 14 02/15/25 20:20: Troponin T Hi Sens 4Hr 14 02/16/25 05:32: WBC 4.8, RBC 4.61, Hgb 14.3, Hct 41.7, MCV 90.5, MCH 31.0, MCHC 34.3, RDW Std Deviation 40.1, RDW Coeff of Jacy 12.1, Plt Count 189, MPV 9.4, Immature Gran % (Auto) 0.200, Neut % (Auto) 57.0, Lymph % (Auto) 27.9, [place] % (Auto) 10.4 H, Eos % (Auto) 3.5, Baso % (Auto) 1.0, Absolute Neuts (auto) 2.7, Absolute Lymphs (auto) 1.34, Nucleated RBC % 0 Physical Exam Narrative Patient has been drinking alcohol heavily since age of 10. He drinks 1/5 of a bottle of vodka. He has intermittent history of drinking and quit when he was 49 and then relapsed. He again was sober and then started in September 2024. Denies opioid substance use currently. Uses marijuana and used amphetamine in the past. Patient having anxiety, tremors Physical exam General: Alert, Oriented x3, Cooperative. Obesity grade 235.5 kg/m? HEENT: Atraumatic, PERRLA, EOMI, Normocephalic. Oral: No Gingival or Mucosal Lesions/ Ulcerations Neck: Supple, No JVD, Negative Carotid Bruits Chest wall/Lungs: Air entry diminished in bilateral lung bases. No crepitation/rhonchi Cardiovascular: Regular rate and rhythm, Normal S1,S2, No M/G/R Abdomen: Bowel Sounds Present, Soft, Non Tender, Non-Distended : No dysuria. No renal angle tenderness. No suprapubic tenderness. Extremities: No edema, Capillary Refill Less than 3 Seconds Skin: No rashes, No breakdown Musculoskeletal: No Tenderness to Palpation of Joints or Extremities Neurological: Cranial nerves II-XII grossly intact, DTR 2+/4. No acute focal neurological deficit. Psych/Mental Status: Flat affect. Assessment & Plan Assessment/Plan (1) Polysubstance abuse: PLAN: Plan 55-year-old male with history of polysubstance abuse, anxiety, presents to the hospital for desire for inpatient detoxification #Alcohol use disorder - Monitoring based on [facility] protocol - Symptom management using gabapentin, dicyclomine, hydroxyzine, Zofran - Thiamine supplementation - Lorazepam taper 02/16: Patient is alcoholic hepatitis therefore not candidate for phenobarbital. I agree with lorazepam #Nicotine dependence - Nicotine patches ordered #Acute on chronic alcoholic hepatitis - AST ALT both are elevated INR 1.1. AST 133, ALT 101. ALP normal # Depression - Continue home medications # HTN - Continue amlodipine # DVT - Low risk - Encourage mobilization # CODE -Full code Charges/Coding Visit Charges Inpatient E&M: 51710 Subs Hosp L2
[2025-02-16] MEDS: Folic Acid 1 MG Tablet PO (07:50)
[2025-02-16] MEDS: Thiamine Hydrochloride 100 MG Tablet PO (07:50)
[2025-02-16 07:51] LABS: Magnesium 2.2 mg/dL (1.5-2.2); Phosphorus 3.7 mg/dL (2.7-4.5)
[2025-02-16 08:06] LABS: ALB/GLOB Ratio 1.4 RATIO (0.9-2.4); AST(SGOT) 133 U/L (<=37); Alanine Aminotransfer ALT/SGPT 101 U/L (<=46); Albumin, Serum 4.1 g/dL (3.5-5.0); Alkaline Phosphatase 107 U/L (40-129); Anion Gap 12 (5-15); BUN 14 mg/dL (4-19); BUN/Creat Ratio 15.4 RATIO (10-20); Bilirubin, Direct 0.46 mg/dL (0.00-0.30); Calcium,Total 9.1 mg/dL (7.6-11.0); Carbon Dioxide 25.4 mmol/L (21.0-32.0); Chloride 99 mmol/L (98-108); Creatinine, Serum 0.92 mg/dL (0.70-1.20); EST Glomerular Filtration Rate 98 (>60); Estimated Creatinine Clearance 112.51 ml/min (50-250); Glucose 95 mg/dL (70-99); Potassium 4.2 mmol/L (3.3-5.1); Protein, Total 7.1 g/dL (5.9-8.4); Sodium Level 137 mmol/L (133-145); Total Bilirubin 1.43 mg/dL (0.00-1.30)
[2025-02-16 08:15] LABS: International Normalized Ratio 1.1; Prothrombin Time (Protime)PT. 14.4 SECONDS (11.7-14.9)
[2025-02-16] MEDS: DULoxetine Hcl 60 MG Capsule PO (09:44)
[2025-02-16] MEDS: amLODIPine 5 MG Tablet PO (09:44)
--- NOTE | 2025-02-16 10:01 | NURSING ---
CLYDE Dent approached this RN and reported that she went into the pts room and found a cell phone on his bedside table and pt was asleep. She then reported that she removed the cell phone from the room and gave it to Sewing Machine Operator Plastic Zipper Eva. This RN verified that the medical secretary receptionist had the cell phone. The pt remains asleep at this time.
--- NOTE | 2025-02-16 10:33 | CASEMGMT ---
Addendum entered by Serenity Figueroa 02/16/25 10:40: Social Work The ED SW did refer pt to Phuong w/[facility] to follow up w/Medicaid, as pt did have Medicaid recently. Pt informed SW he failed to follow up w/[facility] and this is why his Medicaid was terminated. ISABELA Singleton Original Note: Social Work SW met w/pt for SDOH and self pay status. Pt is here participating in the RAMP program. Pt has been in sober living for the last year, came to [place] to be in sober living and to be near his uncle who lives there. The plan was for him to participate in the RAMP program and they were saving his spot in sober living. However, as per pt's description, there was an issue with one of the other residents and he does not want to go back. He does want to return to a sober living environment, but not back to where he was or [facility]. Pt has participated in the RAMP program before. SW explained that someone from the RAMP program will be in to see him and speak w/him about options. If they are not able to work with him on a housing solution, the SW can speak w/him about halfway options. SW did let pt know that the only halfway option here is [facility], after that the next closest one is [facility] in [place]. SW inquired w/pt if staying with his uncle may be an option, he states he does not know. FLORENTINO did provide to pt resources for self pay, including [facility], [employer], [facility], and prescription assistance programs. FLORENTINO also provided to pt the [employer] card which has food resources. FLORENTINO remains available to assist should resources be needed for pt having a safe place to go at d/c, if [facility] is not able to find a solution for pt's housing situation. ISABELA Singleton
--- NOTE | 2025-02-16 12:03 | NURSING ---
once pt woke up, this RN took the phone to the pt to be powered down. the pt powered down cell phone under direct observation of this RN. This RN then explained the rules of the RAMP program to the pt and asked if he had any other of his personal belongings. the pt then revealed that he still had his shorts. This RN confiscated the shorts and put them in the RAMP bin with yellow lid and re-zip tied the top along with the pts cell phone.
[2025-02-16] MEDS: 0.9% Saline Lock 10 ML Syringe IV (19:44)
[2025-02-16] MEDS: DULoxetine Hcl 30 MG Capsule PO (23:03)
[2025-02-17] MEDS: LORazepam 1 MG Tablet PO ×6 (04:19→22:53)
[2025-02-17 04:20] VITALS: BP 115/72; PULSE 64; RESP 16; TEMP 36.5; O2SAT 93
[2025-02-17 06:32] VITALS: BP 146/94; PULSE 67; RESP 16; TEMP 36.4; O2SAT 97
[2025-02-17] MEDS: busPIRone 5 MG Tablet 10 MG PO ×3 (06:34→19:44)
[2025-02-17 07:41] LABS: ALB/GLOB Ratio 1.4 RATIO (0.9-2.4); AST(SGOT) 101 U/L (<=37); Alanine Aminotransfer ALT/SGPT 100 U/L (<=46); Albumin, Serum 4.3 g/dL (3.5-5.0); Alkaline Phosphatase 130 U/L (40-129); Anion Gap 11 (5-15); BUN 12 mg/dL (4-19); BUN/Creat Ratio 13.5 RATIO (10-20); Calcium,Total 9.4 mg/dL (7.6-11.0); Carbon Dioxide 25.8 mmol/L (21.0-32.0); Chloride 102 mmol/L (98-108); EST Glomerular Filtration Rate 100 (>60); Estimated Creatinine Clearance 115.01 ml/min (50-250); Globulin 3.1 g/dL (2.2-4.2); Glucose 102 mg/dL (70-99); Potassium 3.9 mmol/L (3.3-5.1); Protein, Total 7.4 g/dL (5.9-8.4); Sodium Level 139 mmol/L (133-145); Total Bilirubin 0.74 mg/dL (0.00-1.30)
[2025-02-17 08:08] VITALS: BP 154/88; PULSE 60; RESP 18; TEMP 36.6; O2SAT 94
[2025-02-17] MEDS: Thiamine Hydrochloride 100 MG Tablet PO (08:10)
[2025-02-17] MEDS: Folic Acid 1 MG Tablet PO (08:10)
[2025-02-17] MEDS: DULoxetine Hcl 60 MG Capsule PO (10:13)
[2025-02-17] MEDS: amLODIPine 5 MG Tablet PO (10:13)
[2025-02-17 14:08] VITALS: BP 140/90; PULSE 78; RESP 18; TEMP 36.6; O2SAT 98
--- NOTE | 2025-02-17 14:18 | ADDICTION ---
Met with patient to complete RAMP assessments. Clinician also sent a payment referral to the mental health and recovery board. Patient has spoken with the team at [facility] and wants to re-enter sober living and start back up with IOP. He also has been screened for Vivitrol and would like to start that again upon discharge.
[2025-02-17] MEDS: hydrOXYzine PAM 25 MG Capsule 50 MG PO ×2 (14:55→19:43)
--- NOTE | 2025-02-17 16:06 | PCM.PN.HOSP ---
Reason for Visit Reason for Visit: Diagnoses Other psychoactive substance abuse, uncomplicated (02/15/25) Objective Data Objective Data Vital Signs: Vital Signs Temp Pulse Resp BP Pulse Ox O2 Del Method 97.9 F 78 18 140/90 H 98 Room Air 02/17/25 14:08 02/17/25 14:08 02/17/25 14:08 02/17/25 14:08 02/17/25 14:08 02/17/25 14:08 Oxygen Delivery Method Room Air Weight: 247 lb 9.266 oz Body Mass Index (BMI) 35.5 Intake & Output: Intake and Output for Last 24 Hours 02/15/25 02/16/25 02/17/25 23:59 23:59 23:59 Intake Total 1200 / 1200 400 / 400 Balance 1200 / 1200 400 / 400 Lab / Micro Data 02/16/25 05:32 02/17/25 06:15 Labs: Laboratory Results - last 24 hr 02/17/25 06:15: Sodium 139, Potassium 3.9, Chloride 102, Carbon Dioxide 25.8, Anion Gap 11, BUN 12, Creatinine 0.90, Estim Creat Clear Calc 115.01, Est GFR (MDRD) Non-Af 100, BUN/Creatinine Ratio 13.5, Glucose 102 H, Calcium 9.4, Total Bilirubin 0.74, AST 101 H, ALT 100 H, Alkaline Phosphatase 130 H, Total Protein 7.4, Albumin 4.3, Globulin 3.1, Albumin/Globulin Ratio 1.4 Social Homelessness:: Unsheltered Physical Exam Narrative Patient is feeling better than yesterday. Less tremor but still has anxiety. Patient has been drinking alcohol heavily since age of 10. He drinks 1/5 of a bottle of vodka. He has intermittent history of drinking and quit when he was 49 and then relapsed. He again was sober and then started in September 2024. Denies opioid substance use currently. Uses marijuana and used amphetamine in the past. Patient having anxiety, tremors Physical exam General: Alert, Oriented x3, Cooperative. Obesity grade 235.5 kg/m? HEENT: Atraumatic, PERRLA, EOMI, Normocephalic. Oral: No Gingival or Mucosal Lesions/ Ulcerations Neck: Supple, No JVD, Negative Carotid Bruits Chest wall/Lungs: Air entry diminished in bilateral lung bases. No crepitation/rhonchi Cardiovascular: Regular rate and rhythm, Normal S1,S2, No M/G/R Abdomen: Bowel Sounds Present, Soft, Non Tender, Non-Distended : No dysuria. No renal angle tenderness. No suprapubic tenderness. Extremities: No edema, Capillary Refill Less than 3 Seconds Skin: No rashes, No breakdown Musculoskeletal: No Tenderness to Palpation of Joints or Extremities Neurological: Cranial nerves II-XII grossly intact, DTR 2+/4. No acute focal neurological deficit. Psych/Mental Status: Flat affect. Assessment & Plan Assessment/Plan (1) Polysubstance abuse: PLAN: Plan 55-year-old male with history of polysubstance abuse, anxiety, presents to the hospital for desire for inpatient detoxification #Alcohol use disorder - Monitoring based on [facility] protocol - Symptom management using gabapentin, dicyclomine, hydroxyzine, Zofran - Thiamine supplementation - Lorazepam taper 02/16: Patient is alcoholic hepatitis therefore not candidate for phenobarbital. I agree with lorazepam #Nicotine dependence - Nicotine patches ordered #Acute on chronic alcoholic hepatitis - AST ALT both are elevated INR 1.1. AST 133, ALT 101. ALP normal 02/17: AST 101, ALT 100, improving. RUQ sonogram ordered for tomorrow a.m. total bilirubin was 1.43, today normal. # Depression - Continue home medications # HTN - Continue amlodipine # DVT - Low risk - Encourage mobilization # CODE -Full code Laboratory Results 02/17/25 06:15: Sodium 139, Potassium 3.9, Chloride 102, Carbon Dioxide 25.8, Anion Gap 11, BUN 12, Creatinine 0.90, Estim Creat Clear Calc 115.01, Est GFR (MDRD) Non-Af 100, BUN/Creatinine Ratio 13.5, Glucose 102 H, Calcium 9.4, Total Bilirubin 0.74, AST 101 H, ALT 100 H, Alkaline Phosphatase 130 H, Total Protein 7.4, Albumin 4.3, Globulin 3.1, Albumin/Globulin Ratio 1.4 Charges/Coding Visit Charges Inpatient E&M: 26452 Subs Hosp L2
[2025-02-17] MEDS: Gabapentin 300 MG Capsule PO (19:44)
[2025-02-17] MEDS: DULoxetine Hcl 30 MG Capsule PO (19:44)
[2025-02-17 19:45] VITALS: BP 136/96; PULSE 84; RESP 18; TEMP 36.6; O2SAT 97
[2025-02-17] MEDS: traZODone 100 MG Tablet PO (22:54)
--- NOTE | 2025-02-18 02:33 | NURSING ---
This nurse taking over patients care at this time.
[2025-02-18] MEDS: LORazepam 1 MG Tablet PO ×2 (02:52→08:46)
[2025-02-18 03:00] VITALS: BP 143/111; PULSE 84; RESP 18; TEMP 36.7; O2SAT 94
--- NOTE | 2025-02-18 05:55 | US_ITS ---
PROCEDURE: ABDOMEN LIMITED 02/18/2025 REASON FOR EXAM: ALCOHOLIC HEPATITIS TECHNIQUE: Complete abdominal ultrasound jimenez-scale images with color doppler. PATIENT PREPARATION: Per protocol COMPARISON: None FINDINGS: Liver: Hepatomegaly to 19.3 cm. Increased echogenicity. Hepatopetal flow Gallbladder: No gallstones. No pericholecystic fluid. Gallbladder wall is unremarkable. Negative Willingham's sign Common bile duct: Measures 5 mm. No intrahepatic biliary dilatation. Pancreas: Unremarkable Kidneys: The right kidney measures 11.8 cm. No hydronephrosis.. US/Abdomen Limited IMPRESSION: Hepatomegaly and hepatic steatosis. No acute cholecystitis. Reading Location: [id number]
[2025-02-18 06:46] LABS: ALB/GLOB Ratio 1.4 RATIO (0.9-2.4); AST(SGOT) 132 U/L (<=37); Alanine Aminotransfer ALT/SGPT 120 U/L (<=46); Albumin, Serum 4.1 g/dL (3.5-5.0); Alkaline Phosphatase 129 U/L (40-129); Anion Gap 13 (5-15); BUN 10 mg/dL (4-19); BUN/Creat Ratio 11.8 RATIO (10-20); Calcium,Total 9.4 mg/dL (7.6-11.0); Carbon Dioxide 21.6 mmol/L (21.0-32.0); Chloride 104 mmol/L (98-108); Creatinine, Serum 0.86 mg/dL (0.70-1.20); EST Glomerular Filtration Rate 102 (>60); Estimated Creatinine Clearance 120.36 ml/min (50-250); Globulin 2.9 g/dL (2.2-4.2); Glucose 105 mg/dL (70-99); Potassium 3.7 mmol/L (3.3-5.1); Sodium Level 138 mmol/L (133-145); Total Bilirubin 0.64 mg/dL (0.00-1.30)
[2025-02-18 08:37] VITALS: BP 133/91; PULSE 77; RESP 16; TEMP 36.6; O2SAT 94
[2025-02-18] MEDS: Folic Acid 1 MG Tablet PO (08:42)
[2025-02-18] MEDS: DULoxetine Hcl 60 MG Capsule PO (08:42)
[2025-02-18] MEDS: Thiamine Hydrochloride 100 MG Tablet PO (08:42)
[2025-02-18] MEDS: amLODIPine 5 MG Tablet PO (08:43)
--- NOTE | 2025-02-18 10:59 | DCINST_ITS ---
Discharge Instructions Diet Discharge Diet: Low fat / Low cholesterol DC O2, CPAP, BIPAP needs Home O2 Discharge instructions: No Dressing / Incision Discharge Activity: Return to Normal Activity Weight Bearing Status: Weight bearing as tolerated Dressing / Incision Call your doctor if you observe: Fever of 101 or Higher, Shortness of breath, Dizziness, Chest pain and Increased palpitations (irregular heartbeat) Follow Up Care Test Results: Test results from this visit will be discussed in further detail at your follow- up appointment, if applicable. Discharge Plan Admission Admit Date/Time: 02/15/25 17:40 Primary Reason for Your Visit: acute alcohol withdrawal Attending Provider: Tammy Cespedes Primary Care Provider: Juanis Vazquez Consulting Providers: Samantha Leung; Vu Jean Instructions Patient Instructions: Alcohol Withdrawal: What to Expect, ED Withdrawal Alcohol Discharge Orders/Prescriptions Prescriptions: Continued amlodipine 5 mg tablet 5 mg PO DAILY ibuprofen 600 mg tablet 600 mg PO TID PRN (Reason: pain) Patient Comments: PT ONLY TAKES 1-2 TIMES A DAY hydroxyzine pamoate 25 mg capsule 50 mg PO TID PRN (Reason: anxiety) duloxetine 60 mg capsule,delayed release(DR/EC) 60 mg PO DAILY buspirone 10 mg tablet 10 mg PO TID duloxetine 30 mg capsule,delayed release(DR/EC) 30 mg PO QHS Referrals / Follow Up: Juanis Vazquez, [Primary Care Provider] - Within 1 Week Care Physician,No Primary [Non-Staff] - Disposition Disposition (needs filled in before D/C Order can be placed): Home, Self Care
--- NOTE | 2025-02-18 12:02 | CASEMGMT ---
Social Work- FLORENTINO spoke with Phuong who reports that she applied for [facility] for pt. Pt is working with [facility] to verify if return to the sober living home will be an option. FLORENTINO updated hospitalist that pt has an appointment at 13:00 with [facility] and will need discharge prior. Hospitalist awaiting u/s results then will d/c. Bedside nurse updated. NAOMY Mccullough
--- NOTE | 2025-02-18 12:44 | PCM.DC.SUM ---
Providers Date of Admission: 02/15/25 Date of Discharge: 02/18/25 Primary Care Physician: Dr. Juanis Vazquez DO Reason For Visit: ALCOHOL DETOXIFICATION Diagnosis Discharge Diagnosis (1) Polysubstance abuse: Status: Acute Code(s): F19.10 - Other psychoactive substance abuse, uncomplicated Medications at Discharge Home Medications amlodipine 5 mg tablet 5 mg PO DAILY 12/17/23 buspirone 10 mg tablet 10 mg PO TID 12/17/23 duloxetine 60 mg capsule,delayed release 60 mg PO DAILY 12/17/23 hydroxyzine pamoate 25 mg capsule 50 mg PO TID PRN anxiety 12/17/23 ibuprofen 600 mg tablet 600 mg PO TID PRN pain 12/17/23 duloxetine 30 mg capsule,delayed release 30 mg PO QHS 02/15/25 Hospital Course Operations None Procedures None Summary of Care Provided Minutes Spent on Discharge: 45 Hospital Course: Patient is a 55-year-old male with past medical history as outlined was admitted through the ED on 02/15/2025 for alcohol detox. Patient has a history of alcohol use disorder and his last drink was about an hour prior to admission and usually drank about 1/5 of vodka every day. He also smokes 1/2 pack of cigarettes every day. Review of systems otherwise negative. He was admitted to the manage for acute alcohol withdrawal. He was placed on alcohol withdrawal protocol with lorazepam. Due to his elevated liver enzymes, he was not placed on phenobarbital. He tolerated the 3-day detox process and remained stable. Liver enzymes were elevated but this was likely due to his chronic alcohol use. He had a liver ultrasound done prior to admission which showed hepatomegaly and hepatic steatosis and no acute cholecystitis. He was discharged home on 02/18/2025. He is to follow-up on outpatient basis to be placed in a sober living facility. Patient seen and examined prior to discharge. He had no active complaints and had an uneventful night. Review of systems otherwise negative. Labs and vitals reviewed. Home medication reviewed and reconciled. Physical Exam Const alert, oriented x3 and no apparent distress General Appearance: cooperative and comfortable Orientation / Consciousness: awake Exam Limitations: no limitations HEENT normocephalic, head/scalp atraumatic, hearing grossly normal bilaterally, moist oral mucous membranes and oropharynx normal Mouth: oral and palatal mucosa normal Eyes PERRL, EOMs intact bilaterally and conjunctivae normal Neck no lymphadenopathy and supple Resp normal respiratory effort, no use of accessory muscles and clear to auscultation bilaterally Cardio regular rate, regular rhythm, S1 normal heart sound, S2 normal heart sound and no murmurs GI normal to inspection, nondistended, normoactive bowel sounds, soft to palpation, non-tender and non-distended Extremity normal to inspection, full ROM and no clubbing, cyanosis or edema Skin no rashes or lesions noted Neuro oriented x3, CN's II-XII intact bilaterally, moves all extremities and no focal motor deficits Sensorium / Orientation: awake and alert Motor Exam: strength 5/5 throughout Psych affect normal Medical Records Data Homelessness:: Unsheltered Weight / BMI Weight Weight: 247 lb 9.266 oz Body Mass Index (BMI) 35.5 ABG / Lab / Microbiology Data 02/16/25 05:32 02/18/25 05:50 Laboratory: Laboratory Results - last 24 hr 02/18/25 05:50: Sodium 138, Potassium 3.7, Chloride 104, Carbon Dioxide 21.6, Anion Gap 13, BUN 10, Creatinine 0.86, Estim Creat Clear Calc 120.36, Est GFR (MDRD) Non-Af 102, BUN/Creatinine Ratio 11.8, Glucose 105 H, Calcium 9.4, Total Bilirubin 0.64, AST 132 H, ALT 120 H, Alkaline Phosphatase 129, Total Protein 7.0, Albumin 4.1, Globulin 2.9, Albumin/Globulin Ratio 1.4 Radiography Diagnostic Testing: Radiology Impression Abdomen Ultrasound 02/18/25 05:55 IMPRESSION: Hepatomegaly and hepatic steatosis. No acute cholecystitis. Reading Location: [id number] D/C Instructions Discharge Diet: Low fat / Low cholesterol Discharge Activity: Return to Normal Activity Weight Bearing Status: Weight bearing as tolerated Call your doctor if you observe: Fever of 101 or Higher, Shortness of breath, Dizziness, Chest pain and Increased palpitations (irregular heartbeat) DC O2, CPAP, BIPAP Needs Home O2 Discharge instructions: No DC home with Oxygen: No Meaningful Use Info Meaningful Use Meaningful Use Diagnoses (Choose all that apply): None applicable Ischemic Stroke Statin Dosing Therapy Reference: STATIN DOSE THERAPY REFERENCE: * Patients > 75 years receive moderate or high dose statin therapy. * Patients 75 years or YOUNGER should receive HIGH intensity statin dose unless contraindicated. You will be required to document reason for non-treatment if statin daily dose does not meet guidelines. HIGH DOSE STATIN THERAPY DAILY Atorvastatin > than or = to 40 mg Rosuvastatin > than or = to 20 mg Amlodipine + Atorvastatin > than or = to 2.5/40 mg Ezetimibe + Simvastatin 10/80 mg Simvastatin 80mg Discharge Plan Admission Admit Date/Time: 02/15/25 17:40 Primary Reason for Your Visit: acute alcohol withdrawal Attending Provider: Tammy Cespedes Primary Care Provider: Juanis Vazquez Consulting Providers: Samantha Leung; Vu Jean Instructions Patient Instructions: Alcohol Withdrawal: What to Expect, ED Withdrawal Alcohol Discharge Orders/Prescriptions Prescriptions: Continued amlodipine 5 mg tablet 5 mg PO DAILY ibuprofen 600 mg tablet 600 mg PO TID PRN (Reason: pain) Patient Comments: PT ONLY TAKES 1-2 TIMES A DAY hydroxyzine pamoate 25 mg capsule 50 mg PO TID PRN (Reason: anxiety) duloxetine 60 mg capsule,delayed release(DR/EC) 60 mg PO DAILY buspirone 10 mg tablet 10 mg PO TID duloxetine 30 mg capsule,delayed release(DR/EC) 30 mg PO QHS Referrals / Follow Up: Juanis Vazquez, [Primary Care Provider] - Within 1 Week Care Physician,No Primary [Non-Staff] - Disposition Disposition (needs filled in before D/C Order can be placed): Home, Self Care Charges/Coding Visit Charges Inpatient E&M: 98658 Disch Hosp >30min
== END 2025-02-18 12:54 | disposition home or self-care (01) ==
LOC: ED 17:51 → MS3 02-16 07:32
PROVIDERS: Internal Medicine; Admitting Provider Internal Medicine; Emergency Provider Emergency Medicine; PCP Family Medicine; Referring Provider Emergency Medicine; Visit Provider Student in an Organized Health Care Education/Training Program
DX: F10.129 Alcohol abuse with intoxication, unspecified (principal); K70.10 Alcoholic hepatitis without ascites; F17.210 Nicotine dependence, cigarettes, uncomplicated; I10 Essential (primary) hypertension; F32.A Depression, unspecified; F41.9 Anxiety disorder, unspecified; Y90.4 Blood alcohol level of 80-99 mg/100 ml; Z79.899 Other long term (current) drug therapy; R16.0 Hepatomegaly, not elsewhere classified; K76.0 Fatty (change of) liver, not elsewhere classified; I49.1 Atrial premature depolarization; R94.31 Abnormal electrocardiogram [ECG] [EKG]; R07.89 Other chest pain
CPT/HCPCS: 36415; 76705; 80048; 80053; 80076; 80307; 82077; 83735; 84100; 84443; 84484; 85025; 85610; 93005; 96374; 96375; 99221; 99284; 99406; A4216; G0378; J2405

== ENCOUNTER 2025-04-20 21:03 | Inpatient (IN) | payer MEDICAID, SELFPAY ==
[2025-04-20 21:04] VITALS: BP 120/88; PULSE 83; RESP 20; TEMP 36.3; O2SAT 95; BMI 35.4
--- NOTE | 2025-04-20 21:16 | EX.ED.SAOD ---
HPI <ROSA Araya - Last Filed: 04/20/25 21:55> History of Present Illness Chief Complaint: Substance Abuse Narrative Narrative: Patient presenting today requesting to detox from alcohol. He drinks 1-2/5 of vodka per day, he reports that over the past 5 years he has been battling alcohol abuse and has detoxed here in the past. He also reports occasional marijuana use. He denies any history of withdrawal seizure. He does typically experience withdrawal symptoms first thing in the morning including shakiness, anxiety, nausea, and occasionally has hallucinations. His last drink was this evening, he is not currently withdrawing. PFSH <ROSA Araya - Last Filed: 04/20/25 21:55> [facility] Medical History Polysubstance abuse Anxiety Depression Hypertension Home Medications ?Medication ?Instructions ?Recorded ?Last Taken ?Type amlodipine 5 mg tablet 5 mg PO DAILY 12/17/23 02/15/25 History buspirone 10 mg tablet 10 mg PO TID 12/17/23 02/15/25 History duloxetine 60 mg capsule,delayed 60 mg PO DAILY 12/17/23 02/15/25 History release hydroxyzine pamoate 25 mg capsule 50 mg PO TID PRN anxiety 12/17/23 02/15/25 History ibuprofen 600 mg tablet 600 mg PO TID PRN pain 12/17/23 02/15/25 History duloxetine 30 mg capsule,delayed 30 mg PO QHS 02/15/25 Unknown History release Allergy/AdvReac Type Severity Reaction Status Date / Time No Known Allergies Allergy Verified 04/20/25 21:05 Family History Other Alcoholism Social History Smoking Status: Current every day smoker tobacco type: cigarettes Smokeless tobacco user: other substance use type: marijuana and amphetamines ROS <ROSA Araya - Last Filed: 04/20/25 21:55> ROS ED Constitutional Constitutional ED: Denies chills or fever(s) Cardiovascular Cardiovascular: Denies chest pain Respiratory/Chest Respiratory/Chest: Denies dyspnea Gastrointestinal Gastrointestinal: Denies abdominal pain, nausea or vomiting Musculoskeletal Musculoskeletal: Denies arthralgias or myalgias Integumentary Denies rash Neurologic Neurologic: Denies weakness Psychiatric Psychiatric: Denies anxiety, depression, suicidal ideation or suicidal thoughts EXAM <ROSA Araya - Last Filed: 04/20/25 21:55> Physical Exam Const Vital Signs: 04/20/25 21:04 04/20/25 22:03 Temperature 97.4 F L 96.8 F L Temperature Source Temporal Pulse Rate 83 71 Respiratory Rate 20 H 20 H Blood Pressure 120/88 H 133/81 H Blood Pressure Mean 98 98 Pulse Ox 95 94 Oxygen Delivery Method Room Air Positive well nourished, well developed and no apparent distress General Appearance ED: well developed HEENT Reports normocephalic and head/scalp atraumatic Mouth ED: Yes moist mucous membranes normal Eyes PERRL and EOMs intact bilaterally Neck full ROM and supple Chest Wall inspection of chest normal Resp normal respiratory effort and clear to auscultation bilaterally Cardio regular rate and regular rhythm Back/Spine normal ROM and normal to inspection Extremity normal to inspection and full ROM Neuro oriented x3, moves all extremities, no focal motor deficits and no sensory deficits noted Sensorium / Orientation: awake and alert Psych mental status grossly normal and thought process normal Skin no rashes or lesions noted and no wounds <Dr. Alfa Beckham MD - Last Filed: 04/20/25 22:29> Physical Exam Const Vital Signs: 04/20/25 21:04 04/20/25 22:03 Temperature 97.4 F L 96.8 F L Temperature Source Temporal Pulse Rate 83 71 Respiratory Rate 20 H 20 H Blood Pressure 120/88 H 133/81 H Blood Pressure Mean 98 98 Pulse Ox 95 94 Oxygen Delivery Method Room Air MDM <ROSA Araya - Last Filed: 04/20/25 21:55> [facility] MDM Narrative Medical decision making narrative: Patient presenting today requesting to detox from alcohol. His last drink was this evening. He drinks about 1-2/5 of vodka per day. He does not currently feel like he is going through withdrawal. Labs will be obtained and he will be admitted to the hospital. Labs at this time are pending. I have personally performed a face to face assessment of the patient and have reviewed the RENA Note. I performed a substantive portion of the visit including all aspects of the following. My robb findings include: History is remarkable for detox approximately 16 months ago. He was sober for over a year. Began to drink. He has been consuming 1/5 of vodka per day for the past 3 months. He states 1 he awakes he has tremors palpitations sweats until he starts drinking again. He states his problem is when he is put in a home because of the multiple other clients who have personality disorders. He denies bruising easily. He denies black or maroon stool. He does smoke. He states he will do fine with the patch. There is a history of hypertension and depression. Patient states he gets himself in trouble when he goes back to work. Exam is remarkable for slight elevation in blood pressure. HEENT exam is unremarked. There is no scleral icterus. Heart is regular. Rate is normal. There is no murmur, gallop or rub. Lungs are clear to auscultation. He is alert oriented x 3. He has no obvious outward signs of withdrawal. Medical Decision Making ED addiction medicine order set was used. Will contact hospitalist for admission. Other additions or changes: [None] Lab Data Attestation: I reviewed the patient's lab results. Labs: Laboratory Results - last 24 hr 04/20/25 21:27 WBC 10.0 RBC 4.83 Hgb 14.9 Hct 43.5 MCV 90.1 MCH 30.8 MCHC 34.3 RDW Std Deviation 42.0 RDW Coeff of Jacy 12.7 Plt Count 249 MPV 9.0 Immature Gran % (Auto) 0.400 Neut % (Auto) 63.0 Lymph % (Auto) 20.1 Ransom % (Auto) 6.3 Eos % (Auto) 8.9 H Baso % (Auto) 1.3 H Absolute Neuts (auto) 6.3 Absolute Lymphs (auto) 2.01 Nucleated RBC % 0 Sodium 139 Potassium 3.6 Chloride 99 Carbon Dioxide 25.6 Anion Gap 15 BUN 10 Creatinine 1.07 Estim Creat Clear Calc 96.71 Est GFR (MDRD) Non-Af 81 BUN/Creatinine Ratio 9.5 L Glucose 117 H Calcium 9.5 Total Bilirubin 0.80 AST 117 H ALT 99 H Alkaline Phosphatase 130 H Total Protein 7.7 Albumin 4.5 Globulin 3.2 Albumin/Globulin Ratio 1.4 Ethyl Alcohol 124.0 H <Dr. Alfa Beckham MD - Last Filed: 04/20/25 22:29> MDM MDM Narrative Medical decision making narrative: Patient presenting today requesting to detox from alcohol. His last drink was this evening. He drinks about 1-2/5 of vodka per day. He does not currently feel like he is going through withdrawal. Labs will be obtained and he will be admitted to the hospital. I have personally performed a face to face assessment of the patient and have reviewed the RENA Note. I performed a substantive portion of the visit including all aspects of the following. My robb findings include: History is remarkable for detox approximately 16 months ago. He was sober for over a year. Began to drink. He has been consuming 1/5 of vodka per day for the past 3 months. He states 1 he awakes he has tremors palpitations sweats until he starts drinking again. He states his problem is when he is put in a home because of the multiple other clients who have personality disorders. He denies bruising easily. He denies black or maroon stool. He does smoke. He states he will do fine with the patch. There is a history of hypertension and depression. Patient states he gets himself in trouble when he goes back to work. Exam is remarkable for slight elevation in blood pressure. HEENT exam is unremarked. There is no scleral icterus. Heart is regular. Rate is normal. There is no murmur, gallop or rub. Lungs are clear to auscultation. He is alert oriented x 3. He has no obvious outward signs of withdrawal. Medical Decision Making ED addiction medicine order set was used. Will contact hospitalist for admission. Other additions or changes: [None] Lab Data Lab results narrative: CBC is unremarkable. Competence of metabolic panel with slight elevation AST of 117 and alkaline phos of 130. Alcohol is 124. Labs: Laboratory Results - last 24 hr 04/20/25 21:27 WBC 10.0 RBC 4.83 Hgb 14.9 Hct 43.5 MCV 90.1 MCH 30.8 MCHC 34.3 RDW Std Deviation 42.0 RDW Coeff of Jacy 12.7 Plt Count 249 MPV 9.0 Immature Gran % (Auto) 0.400 Neut % (Auto) 63.0 Lymph % (Auto) 20.1 Ransom % (Auto) 6.3 Eos % (Auto) 8.9 H Baso % (Auto) 1.3 H Absolute Neuts (auto) 6.3 Absolute Lymphs (auto) 2.01 Nucleated RBC % 0 Sodium 139 Potassium 3.6 Chloride 99 Carbon Dioxide 25.6 Anion Gap 15 BUN 10 Creatinine 1.07 Estim Creat Clear Calc 96.71 Est GFR (MDRD) Non-Af 81 BUN/Creatinine Ratio 9.5 L Glucose 117 H Calcium 9.5 Total Bilirubin 0.80 AST 117 H ALT 99 H Alkaline Phosphatase 130 H Total Protein 7.7 Albumin 4.5 Globulin 3.2 Albumin/Globulin Ratio 1.4 Ethyl Alcohol 124.0 H Discharge Plan Dx/Rx/DC Orders Clinical Impression: Alcohol intoxication, Desire for detoxification, Alcohol abuse Disposition Disposition: Acute Care [facility]
--- OUTSIDE RECORDS SUMMARY | 2025-04-20 21:22 | XMS RPT_ITS | CCD ---
Author Organization [facility] Care Team Providers Care Stained Glass Glazier Helper Name Role Phone HEATHER, DARRELL D Unavailable Unavailable HEATHER, DARRELL D Unavailable Unavailable NEELA HORNE Unavailable Unavailable SANDIE FLORES Unavailable Unavailable HEATHER, DARRELL Unavailable Unavailable HEATHER, DARRELL D Unavailable Unavailable HEATHER, DARRELL D Unavailable Unavailable HEATHER, DARRELL D Unavailable Unavailable Unavailable Primary Care Provider UnavailKarrie Vora Primary Care Provider Negrita Zamora Unavailable Unavailable Ananda Zhang Unavailable No, Physician Primary Care Provider Unavailjane e NATY, PHYSICIAN Primary Care Unavailable NEELA ROLDAN Attending UnavailALDA Dowell Attending Unavailable ALDA MARIA Primary Care Unavailable ANDRE DUONG Attending ALDA Richard Primary Care Unavailable THOMAS KAY Admitting Unavail able ANDRE DUONG Attending THOMAS Solorio Referring Unavail able NATY, PHYSICIAN Primary Care Unavailable Alda Maria MD Primary Care Provider Alda Maria MD Primary Care Provider No Information to Report Unavailable Unavail able Kamaljit ICE SELLERDae MA Primary Care Provider Peggy Nicole DO Primary Care Provider ALECIA BESS Referring UnavailPEGGY Driver Primary Care Unavailable JAMES RODRIGUEZ Attending Unavailable FLACO LOPEZ Attending UnavailDAE Badlwin Attending Unavailable PEGGY NICOLE Referring Unavailable PEGGY NICOLE Primary Care Unavailable Dr. Sloan Gonzalez Emergency Provider [phone] Care Physician, No Primary Primary Care Provider Unavailable Dr. Sloan Villalobos Admit Provider Dr. Sloan Villalobos Attending Provider Dr. Sloan Villalobos Other Provider Dr. Anatoly Peck Attending Provider Dr. Anatoly Peck Other Provider Dr. Umang Bassett Attending Provider Unavailable Dr. Umang Bassett Other Provider Unavailable Bonnie DO, Peggy J Primary Care Provider BONNIE, PEGGY J Primary Care Unavailable BONNIE, PEGGY J Attending Unavailable BONNIE, PEGGY J Primary Care Unavailable BONNIE, PEGGY J Primary Care Unavailable BONNIE, PEGGY J Attending Unavailable BONNIE, PEGGY J Primary Care Unavailable BONNIE, PEGGY J Attending Unavailable BONNIE, PEGGY J Primary Care Unavailable Israel HOWE, Dr. Ponce Referring Provider Israel HOWE, Dr. Ponce Emergency Provider Bonnie HOWE, Dr. Olivarez Primary Care Provider [phone] Madhu CORREA, Dr. Singh Admit Provider Unavailab donnie Leung MD, Dr. Singh Attending Provider Cheryle Leung MD, Dr. Singh Other Provider Unavailab donnie Cespedes MD, Dr. Tammy Chandler Attending Provider Ted CORREA, Dr. Womack Other Provider Madhu CORREA, Dr. Singh Attending Provider Cheryle Jean MD, Dr. Womack Attending Provider Samantha Leung Admitting Unavailable Madhu, Achintya Consulting Unavailable Ungur, Remus Referring Unavailable Tammy Cespedes Attending Unavailable Bonnie, Peggy Primary Care Unavailable Vu Jean Consulting Unavailable Jan Mayo Attending Unavailable Care Physician, No Primary Primary Care Unava ilable Care Physician, No Primary Referring Unava ilable Samantha Leung Attending Unavailable Ungur, Remus Referring Unavailable Bonnie, Peggy Primary Care Unavailable Leung, Achintya Admitting Unavailable Vu Jean Attending Unavailable Madhu, Achintya Consulting Unavailable Ungur, Remus Referring Unavailable Bonnie, Peggy Primary Care Unavailable Vu Jean Consulting Unavailable Tammy Cespedes Attending Unavailable Tammy Cespedes Consulting Unavailable Medications Current Medications Medication Drug Class(es) Dates Sig (Normalized) Sig (Original) acetaminophen 325 mg oral tablet (2 sources) Start: 08-29-2019 acetaminophen (TYLENOL) tablet 325-650 mg Start: 08-29-2019 acetaminophen (TYLENOL) tablet 1,000 mg acetaminophen 325 mg / HYDROcodone bitartrate 5 mg oral tablet (1 source) Opioid Agonist Start: 04-27-2020 take 1 tablet by mouth every six hours as needed for pain hydrocodone-acetaminophen (NORCO) 5-325 MG Indications: Partial thickness burn of left wrist, initial encounter Take 1 tablet by mouth every 6 hours as needed for Pain. 15 tablet 0 04/27/2020 Active Start: 04-27-2020 take 1 tablet by heath th every six hours as needed for pain hydrocodone-acetaminophen (NORCO) 5-325 MG Indications: Partial thickness burn of left wrist, initial encounter Take 1 tablet by mouth every 6 hours as needed for Pain. 15 tablet 0 04/27/2020 Active amLODIPine 5 mg oral tablet (20 sources) Dihydropyridine Calcium Channel Stephanie Start: 09-29-2023 End: 07-07-2024 take 1 tablet by mouth once daily Amlodipine 5 mg tablet Active 5 mg PO DAILY December 17, 2023 12:00am Start: 06-07-2023 End: 07-06-2023 take 1 tablet by mouth once daily amLODIPine (NORVASC) 5 mg tablet Take 1 tablet by mouth once daily. 90 tablet 0 07/06/2023 Active Comment on above: Take 1 tablet by heath th once daily. amoxicillin 875 mg oral tablet (1 source) Penicillin-class Antibacterial Start: 4 End: 4 take 1 tablet by mouth twice daily amoxicillin (AMOXIL) 875 mg tablet Indications: Pain, dental Take 1 tablet by mouth two times a day for 7 days. 14 tablet 07/26/2024 08/02/2024 Active amoxicillin 875 mg / clavulanate 125 mg oral tablet (5 sources) Penicillin-class Antibacterial Start: 0 take 1 tablet by mouth twice daily amoxicillin-clavula reji (AUGMENTIN) 875-125 MG per tablet Indications: Acute otalgia, left Take 1 tablet by mouth two times a day. 20 tablet 0 12/31/2019 Active Start: 07-04-2019 End: 07-24-2019 take 1 tablet by mouth twice daily amoxicillin-clavulanate (AUGMENTIN) 875-125 MG per tablet Indications: Non-recurrent acute suppurative otitis media of left ear without spontaneous rupture of tympanic membrane Take 1 tablet by mouth two times a day. 20 tablet 0 07/04/2019 07/24/2019 Discontinued aspirin 81 mg delayed release oral tablet (20 sources) Platelet Aggregation Inhibitor, Nonsteroidal Anti-inflammatory Drug Start: 04-30-2020 take 1 tablet by mouth once daily HM ASPIRIN EC LOW DOSE 81 MG EC tablet TAKE 1 TABLET BY MOUTH DAILY. 90 tablet 3 04/30/2020 Active Start: 08-09-2019 End: 08-29-2019 take 1 tablet by mouth once daily aspirin EC (ECOTRIN LOW STRENGTH) 81 MG EC tablet Take 1 tablet by mouth daily. 30 tablet 6 08/29/2019 Active busPIRone hydrochloride 10 mg oral tablet (20 sources) Start: 12-17-2023 take 1 tablet by mouth three times daily Buspirone 10 mg tablet Active 10 mg PO THREE TIMES A DAY December 17, 2023 12:00am Start: 07-02-2023 End: 04-29-2024 take 1 tablet by mouth twice daily Buspirone 7.5 mg tablet Discontinued 7.5 mg PO TWICE A DAY December 17, 2023 12:00am December 17, 2023 3:48pm Comment on above: Take 1 tablet by heath two times a day for 14 days. Take 1 tablet by heath two times a day. carbamide peroxide 65 mg/ml otic solution (1 source) Start: 0 carbamide peroxide (DEBROX) 6.5 % otic solution Place 5 drops into both ears two times a day. 15 mL 0 12/31/2019 Active DULoxetine 30 mg delayed release oral capsule (20 sources) Serotonin and Norepinephrine Reuptake Inhibitor Start: 5 take 1 capsule by mouth at bedtime Duloxetine 30 mg capsule,delayed release(DR/EC) Active 30 mg PO AT BEDTIME February 15, 2025 12:00am Start: 12-17-2023 take 1 capsule by mo [facility] once daily Duloxetine 60 mg capsule,delayed release(DR/EC) Active 60 mg PO DAILY December 17, 2023 12:00am Start: 02-25-2020 End: 08-17-2023 take 1 capsule by mouth once daily DULoxetine (CYMBALTA) 60 mg capsule Take 1 capsule by mouth once daily. 90 capsule 2 08/17/2023 Active take 60 mg by mouth once daily D ULOXETINE HCL PO Take 60 mg by mouth nightly. 0 Active Comment on above: Take 60 mg by mouth once daily. Take 1 capsule by mo uth once daily. hydrOXYzine hydrochloride 25 mg oral tablet (20 sources) Antihistamine Start: 04-04-20 take 1 tablet by mouth every eight hours as needed hydrOXYzine HCl (ATARAX) 25 mg tablet Take 1 tablet by mouth three times a day as needed. 04/04/2024 Active Start: 12-17-2023 Hydroxyzine Pa moate 25 mg capsule Active 50 mg PO THREE TIMES A DAY as needed for anxiety December 17, 2023 12:00am Start: 12-17-2023 take 50 mg by mouth three times daily Hydroxyzine Pamoate Active 50 MG PO THREE TIMES A DAY December 17, 2023 12:00am Start: 10-06-2023 End: 01-30-2024 take 25-50 mg by mouth every eight hours as needed hydrOXYzine pamoate (VISTARIL) 25 mg capsule Take 1-2 capsules by mouth three times a day as needed. 30 capsule 4 11/01/2023 01/30/2024 Start: 01-21-2023 End: 02-16-2023 take 2 tablets by mouth every six hours as needed hydrOXYzine HCl (ATARAX) 25 mg tablet Take 50 mg by mouth four times daily as needed. 0 01/21/2023 02/16/2023 Discontinued Start: 01-18-2023 End: 08-11-2023 take 2 capsules by mouth every eight hours as needed hydrOXYzine pamoate (VISTARIL) 25 mg capsule Take 2 capsules by mouth three times daily as needed. 90 capsule 4 05/13/2023 08/11/2023 Active Comment on above: Take 50 mg by mouth three times daily as needed. Take 50 mg by mouth four times daily as needed. Take 2 capsules by m outh three times daily as needed. Take 1-2 capsules by mouth three times a day as needed. ibuprofen 600 mg oral tablet (20 sources) Nonsteroidal Anti-inflammatory Drug Start: 12-17-2023 take 1 tablet by mouth three times daily as needed for pain Ibuprofen 600 mg tablet Active 600 mg PO THREE TIMES A DAY as needed for pain December 17, 2023 12:00am Start: 06-24-2023 End: 09-22-2023 take 1 tablet by mouth every eight hours as needed ibuprofen (MOTRIN) 600 mg tablet Take 1 tablet by mouth three times a day as needed for pain. Take with food. Do not use with other NSAIDs. 90 tablet 2 06/24/2023 09/22/2023 Active Start: 02-25-2022 take 1 tablet by heath th every six hours as needed for pain ibuprofen (ADVIL,MOTRIN) 600 MG tablet TAKE 1 TABLET BY MOUTH EVERY 6 HOURS NEEDED FOR PAIN 90 tablet 2 02/25/2022 Active Start: 10-14-2021 End: 02-25-2022 take 1 tablet by mouth every six hours as needed for pain ibuprofen (ADVIL,MOTRIN) 600 MG tablet Take 1 (one) tablet (600 mg total) by mouth every 6 (six) hours as needed for pain . 90 tablet 2 10/14/2021 02/25/2022 Discontinued Start: 04-24-2020 End: 06-12-2023 take 1 tablet by mouth every eight hours as needed ibuprofen (MOTRIN) 600 mg tablet Take 1 tablet by mouth three times daily as needed for pain. Take with food. Do not use with other NSAIDs. 30 tablet 4 05/13/2023 06/12/2023 Active Start: 04-24-2020 take 1 tablet by heath th every eight hours as needed for pain ibuprofen (ADVIL,MOTRIN) 600 MG tablet Indications: Chronic low back pain, unspecified back pain laterality, unspecified whether sciatica present TAKE 1 TABLET BY MOUTH EVERY 8 HOURS NEEDED FOR PAIN (TAKE WITH FOOD.). 90 tablet 4 04/24/2020 Active Start: 11-05-2019 take 1 tablet by heath th every eight hours as needed for pain ibuprofen (ADVIL,MOTRIN) 600 MG tablet Indications: Chronic low back pain, unspecified back pain laterality, unspecified whether sciatica present Take 1 tablet by mouth every 8 hours as needed for Pain (Take with food.). 90 tablet 0 11/05/2019 Active Start: 08-08-2019 End: 10-29-2019 take 1 tablet by mouth every eight hours as needed for pain ibuprofen (ADVIL,MOTRIN) 600 MG tablet Indications: Chronic low back pain, unspecified back pain laterality, unspecified whether sciatica present Take 1 tablet by mouth every 8 hours as needed for Pain (Take with food.). 90 tablet 0 10/01/2019 Active Comment on above: Take 600 mg by mouth three times daily as needed. Take 1 tablet by heath th three times daily as needed for pain. Take with food. Do not use with other NSAIDs. Take 1 tablet by heath th three times a day as needed for pain. Take with food. Do not use with other NSAIDs. melatonin 3 mg oral tablet (20 sources) take 1 tablet by mouth once daily as needed for sleep melatonin 3 MG TABS Take 3 mg by mouth nightly as needed for Sleep. 0 Active methylPREDNISolone (1 source) Corticosteroid Star t: 09-19 22 methylPREDNISolone (MEDROL DOSEPACK) 4 mg tablet follow package directions, finish Medrol then begin Naprosyn . 21 tablet 0 10/01/2021 Active naltrexone 380 mg injection (5 sources) Opioid Antagonist Star t: 03-19 7- 24 inject 380 mg by intramuscular injection every month naltrexone ER (VIVITROL) 380 mg injection Inject 380 mg intramuscularly once every month. 04/04/2024 Active naproxen 500 mg oral tablet (5 sources) Nonsteroidal Anti-inflammatory Drug Star t: 09-19 3- 22 take 1 tablet by mouth twice daily at mealtime naproxen (Naprosyn) 500 MG tablet Take 1 (one) tablet (500 mg total) by mouth 2 (two) times a day with meals . 60 tablet 2 10/01/2021 Active 2 ml ondansetron 2 mg/ml injection (1 source) Serotonin-3 Receptor Antagonist Star t: 08-19 1-20 19 ondansetron hcl (ZOFRAN) injection 4 mg penicillin v potassium 500 mg oral tablet (6 sources) Star t: 3- 20 take 1 tablet by mouth four times daily penicillin v potassium (VEETID) 500 MG tablet Take 1 tablet by mouth 4 times daily. 40 tablet 0 10/22/2019 Active predniSONE 10 mg oral tablet (1 source) Star t: 08-20 0- 21 End: 08-20 21 predniSONE (DELTASONE) 10 MG tablet Indications: Plantar fasciitis of right foot , Peroneal tendonitis, right Take 4 tabs PO QD x 3d, then 3 tabs PO QD x 2d, then 2 tabs PO QD x 2, then 1 tab PO QD x 2d then stop . 24 tablet 0 09/07/2021 09/16/2021 Active 1000 ml sodium chloride 9 mg/ml injection (3 sources) Star t: 08-19 0.9% NaCl infusion Start: 08-29-2019 Sodium Chlorid e Flush (SALINE FLUSH) 0.9 % injection 1-10 mL thiamine 100 mg oral tablet (20 sources) take 1 tablet by mouth once daily Thiamine HCl (VITAMIN B1) 100 MG TABS Take 100 mg by mouth daily. 0 Active valACYclovir 500 mg oral tablet (9 sources) Herpesvirus Nucleoside Analog DNA Polymerase Inhibitor, Herpes Simplex Virus Nucleoside Analog DNA Polymerase Inhibitor, Herpes Zoster Virus Nucleoside Analog DNA Polymerase Inhibitor Start: 1 End: 2 take 1 tablet by mouth once daily valACYclovir (VALTREX) 500 MG tablet Take 1 (one) tablet (500 mg total) by mouth daily . 90 tablet 3 10/14/2021 Active Start: 12-31-2019 take 1 tablet by heath once daily valACYclovir (VALTREX) 500 MG tablet Indications: Recurrent herpes labialis Take 1 tablet by mouth daily. 30 tablet 11 12/31/2019 Active Completed/Discontinued Medications Medication Drug Class(es) Dates Sig (Normalized) Sig (Original) gabapentin 300 mg oral capsule (1 source) Anti-epileptic Agent Start: 08-29-2019 End: 08-29-2019 gabapentin (NEURONTIN) capsule 600 mg guanFACINE 1 mg oral tablet (8 sources) Central alpha-2 Adrenergic Agonist Start: 04-11-2023 End: 07-11-2023 take 1 tablet by mouth once daily at bedtime guanFACINE (TENEX) 1 mg tablet Take 1 mg by mouth daily at bedtime. 0 04/11/2023 07/11/2023 Discontinued Comment on above: Take 1 mg by mouth d aily at bedtime. meloxicam 7.5 mg oral tablet (1 source) Nonsteroidal Anti-inflammatory Drug Start: 08-29-2019 End: 08-29-2019 Meloxicam (MOBIC) 7.5 MG tablet 15 mg 24 hr nicotine 0.875 mg/hr transdermal system (20 sources) Cholinergic Nicotinic Agonist Start: 07-11-2023 End: 04-04-2024 apply 1 dose transdermal route every twenty-four hours nicotine (NICODERM) 21 mg/24 hr Indications: Cigarette nicotine dependence with other nicotine-induced disorder Apply 1 Patch as directed every 24 hours. 30 Patch 0 07/11/2023 04/04/2024 Discontinued Start: 06-07-2023 End: 04-04-2024 apply 1 dose transdermal route every twenty-four hours nicotine (NICODERM CQ) 14 mg/24 hr Indications: Cigarette nicotine dependence with other nicotine-induced disorder Apply 1 Patch as directed every 24 hours. 30 Patch 0 06/07/2023 04/04/2024 Discontinued Comment on above: Apply 1 Patch as dir ected every 24 hours. Problems Active Problems Problem Classification Problem Date Documented Date Episodic/Chronic Acquired foot deformities (3 sources) Talipes planus; Translations: [Flat foot [pes planus] (acquired), unspecified foot] Episodic Acute cerebrovascular disease (1 source) Acute cerebrovascular disease Onset: 06-11-2017 Administrative/social admission (3 sources) Administrative reason for encounter; Translations: [Encounter for other administrative examinations] 06-05-2024 Episodic Alcohol-related disorders (20 sources) Alcohol abuse with intoxication, uncomplicated; Translations: [Alcohol dependence] Onset: 06-11-2017 07-04-2019 Chronic Alcohol-related disorders (9 sources) History of alcohol abuse; Translations: [Alcohol intoxication] 12-17-2023 Episodic Anxiety disorders (11 sources) Mixed anxiety and depressive disorder; Translations: [Other specified anxiety disorders] Onset: 10-26-2021 Chronic Mabry (1 source) Burn of second degree of left wrist, initial encounter; Translations: [Partial thickness burn of left wrist, initial encounter] Episodic Cardiac dysrhythmias (20 sources) Supraventricular tachycardia; Translations: [Bradycardia] Onset: 07-04-2019 07-04-2019 Chronic Disorders of teeth and jaw (1 source) Toothache; Translations: [Other specified disorders of teeth and supporting structures] 07-26-2024 Episodic Essential hypertension (3 sources) Essential hypertension; Translations: [Essential (primary) hypertension] 06-07-2023 Chronic Fracture of lower limb (1 source) Closed fracture of base of fifth metatarsal bone ; Translations: [Displaced fracture of fifth metatarsal bone, left foot, initial encounter for closed fracture] Episodic Headache, including migraine (1 source) Headache, including migraine Onset: 06-27-2017 Immunizations and screening for infectious disease (1 source) Encounter for observation for suspected exposure to other biological agents ruled out; Translations: [Lab test negative for COVID-19 virus] Episodic Mood disorders (4 sources) Mood disorder; Translations: [Depressive disorder] Onset: 11-21-2019 11-21-2019 Chronic Other connective tissue disease (2 sources) Plantar fasciitis of right foot; Translations: [Plantar fascial fibromatosis] Episodic Other connective tissue disease (2 sources) Peroneal tendinitis of right lower limb; Translations: [Peroneal tendinitis, right leg] Episodic Other connective tissue disease (1 source) History of spinal fusion; Translations: [Arthrodesis status] 04-19-2023 Episodic Other connective tissue disease (1 source) Bilateral plantar fasciitis; Translations: [Plantar fascial fibromatosis] 06-07-2023 Episodic Other ear and sense organ disorders (2 sources) Impacted cerumen in left ear; Translations: [Impacted cerumen, left ear] Episodic Other ear and sense organ disorders (1 source) Otorrhea; Translations: [Otorrhea, unspecified ear] Episodic Other nervous system disorders (3 sources) Aphasia; Translations: [Aphasia] Onset: 06-11-2017 Chronic Other screening for suspected conditions (not mental disorders or infectious disease) (2 sources) Patient encounter status; Translations: [Encounter for screening for malignant neoplasm of colon] 04-19-2023 Episodic Spondylosis; intervertebral disc disorders; other back problems (2 sources) Degeneration of lumbar intervertebral disc; Translations: [Other intervertebral disc degeneration, lumbar region] 04-19-2023 Chronic Substance-related disorders (11 sources) Tobacco dependence caused by cigarettes; Translations: [Nicotine dependence, cigarettes, with other nicotine-induced disorders] Onset: 02-18-2025 06-07-2023 Chronic Unclassified (2 sources) Aphasia / R47.01(ICD-10) Onset: 06-27-2017 Unclassified (2 sources) Diplopia / H53.2(ICD-10) Onset: 06-27-2017 Unclassified (1 source) Aphasia / [id number]() Onset: 06-11-2017 Unclassified (1 source) Unknown / UNK(Unknown) Onset: 06-11-2017 Unclassified (2 sources) Patient encounter status; Translations: [Pre-op testing] Unclassified (2 sources) Readiness finding 02-15-2025 Past or Other Problems Problem Classification Problem Date Documented Da te Episodic/Chronic Blindness and vision defects (3 sources) Diplopia; Translations: [Unspecified visual disturbance] Onset: 06-11-2017 Episodic Headache, including migraine (1 source) Headache; Translations: [Headache] Onset: 06-27-2017 Episodic Other ear and sense organ disorders (1 source) Impacted cerumen, left ear; Translations: [Impacted cerumen of left ear] Onset: 02-16-2023 Episodic Other ear and sense organ disorders (1 source) Otorrhea, unspecified ear; Translations: [Ear drainage, unspecified laterality] Onset: 02-16-2023 Episodic Other liver diseases (1 source) Elevated liver enzymes level; Translations: [Elevated liver enzymes] Episodic Spondylosis; intervertebral disc disorders; other back problems (9 sources) Chronic low back pain; Translations: [Chronic low back pain] Onset: 10-14-2021 10-14-2021 Episodic Viral infection (5 sources) Herpes simplex type 1 infection; Translations: [Herpesviral infection, unspecified] Onset: 10-14-2021 10-14-2021 Episodic Results Test Name Value Interpretation Reference Range Facility Abdomen Limitedon 02-18-2025 Abdomen Limited [facility] Imaging Services [address] [place] [address] [id number] Abdomen Limited MR#: [id number] Acct: [id number] Name: SLOAN HARVEY Rep #: [id number] : 1970 M 55 From: Paramjit Dumont PCP: Dr. Peggy Nicole, DO Status: DIS IN Study: Abdomen Limited Date of Exam: 02/18/25 Exam# [id number] Ordering Dr: Vu Jean MD PROCEDURE: ABDOMEN LIMITED 02/18/2025 REASON FOR EXAM: ALCOHOLIC HEPATITIS TECHNIQUE: Complete abdominal ultrasound jimenez-scale images with color doppler. PATIENT PREPARATION: Per protocol COMPARISON: None FINDINGS: Liver: Hepatomegaly to 19.3 cm. Increased echogenicity. Hepatopetal flow Gallbladder: No gallstones. No pericholecystic fluid. Gallbladder wall is unremarkable. Negative Willingham's sign Common bile duct: Measures 5 mm. No intrahepatic biliary dilatation. Pancreas: Unremarkable Kidneys: The right kidney measures 11.8 cm. No hydronephrosis.. US/Abdomen Limited IMPRESSION: Hepatomegaly and hepatic steatosis. No acute cholecystitis. Reading Location: [id number] CC: Dr. Peggy Nicole DO; Dr. Vu Jean MD Manager Commodities: Signed Normal [facility] Anion gap in Serum or Plasma Ordered By: Vu Jean on 02-18-2025 Anion gap [Moles/Vol] 13 mmol/L 5-[address] [facility] BUN/creatinine ratioOrdered By: Vu Jean on 02-18-2025 Urea nitrogen/Creatinine [Mass ratio] 11.8 mg/mg 10-20 [facility] Bilirubin, totalOrdered By: Vu Jean on 02-18-2025 Bilirubin [Mass/Vol] 0.64 mg/dL 0.00-1.30 [facility] Carbon dioxide, total [Moles /volume] in Central venous bloodOrdered By: Vu Jean on 02-18-2025 CO2 [Moles/Vol] 21.6 mmol/L 21.0-32.0 [facility] Chloride assayOrdered By: Debbie Jean on 02-18-2025 Chloride [Moles/Vol] 104 mmol/L 98-108 [facility] Comprehensive Metabolic Prof ilon 02-18-2025 Albumin [Mass/Vol] 4.1 g/dL Normal 3.5-5.0 [facility] Comment on above: Performed By: #### L [id number] #### [facility] [address] [place], [place], [id number] Albumin/Globulin [Mass ratio] 1.4 {ratio} Normal 0.9-2.4 [facility] Comment on above: Performed By: #### L [id number] #### [facility] [address] [place], [address] ALK PHOS 129 U/L Normal 40-129 [facility] Comment on above: Performed By: #### L [id number] #### [facility] [address] [place], [address] ALT [Catalytic activity/Vol] 120 U/L High <=46 [facility] Comment on above: Performed By: #### L [id number] #### [facility] [address] [place], [address] AST [Catalytic activity/Vol] 132 U/L High <=37 [facility] Comment on above: Performed By: #### L [id number] #### [facility] [address] [place], [address] Bilirubin [Mass/Vol] 0.64 mg/dL Normal 0.00-1.30 [facility] Comment on above: Performed By: #### L [id number] #### [facility] [address] [place], [address] BUN/CRE 11.8 RATIO Normal 10-20 [facility] Comment on above: Performed By: #### L [id number] #### [facility] [address] [place], [address] Calcium [Mass/Vol] 9.4 mg/dL Normal 7.6-11.0 [facility] Comment on above: Performed By: #### L 499.0042 #### [facility] [address] [place], [address] Chloride [Moles/Vol] 104 mmol/L Normal 98-108 [facility] Comment on above: Performed By: #### L 499.0042 #### [facility] [address] [place], [address] CO2 [Moles/Vol] 21.6 mmol/L Normal 21.0-32.0 [facility] Comment on above: Performed By: #### L 499.0042 #### [facility] [address] [place], [address] Creatinine [Mass/Vol] 0.86 mg/dL Normal 0.70-1.[address] [facility] Comment on above: Performed By: #### L 499.0042 #### [facility] [address] [place], [address] ECRCL 120.36 ml/min Normal 50-250 [facility] Comment on above: Performed By: #### L 499.0042 #### [facility] [address] [place], [address] GAP 13 Normal 5-15 [facility] Comment on above: Performed By: #### L 499.0042 #### [facility] [address] [place], [address] GFR/1.73 sq M.predicted among non-blacks MDRD (S/P/Bld) [Vol rate/Area] 102 mL/min/{1.73_m2} Normal >60 [facility] Comment on above: Result Comment: mL/m in/1.73m2 CKD-EPI Creatinine Equation (2020) Performed By: #### L 499.0042 #### [facility] [address] [place], [address] Globulin (S) [Mass/Vol] 2.9 g/dL Normal 2.2-4.2 [facility] Comment on above: Performed By: #### L 499.0042 #### [facility] [address] [place], [address] Glucose [Mass/Vol] 105 mg/dL High 70-99 [facility] Comment on above: Performed By: #### L 499.0042 #### [facility] [address] [place], [address] Potassium [Moles/Vol] 3.7 mmol/L Normal 3.3-5.[address] [facility] Comment on above: Performed By: #### L 499.0042 #### [facility] [address] [place], [place], [address] Sodium [Moles/Vol] 138 mmol/L Normal 133-145 [facility] Comment on above: Performed By: #### L 499.0042 #### [facility] [address] [place], [place], [id number] T PROT 7.0 g/dL Normal 5.9-8.4 [facility] Comment on above: Performed By: #### L 499.0042 #### [facility] [address] [place], [place], [address] Urea nitrogen [Mass/Vol] 10 mg/dL Normal 4-19 [facility] Comment on above: Performed By: #### L 499.0042 #### [facility] [address] [place], [place], [address] Discharge Instructionon 06-0 Discharge Instruction [facility] Medical Records Department [address] [place] [address] Instructions for Home/Discharge Instructions 02/18/25 1059 MR#: [id number] Acct: [id number] Name: SLOAN HARVEY Rep #: [id number] : 1970 55 From: Tammy Cespedes MD PCP: Dr. Peggy Nicole, DO Status:ADM IN Discharge Instructions Diet Discharge Diet: Low fat / Low cholesterol DC O2, CPAP, BIPAP needs Home O2 Discharge instructions: No Dressing / Incision Discharge Activity: Return to Normal Activity Weight Bearing Status: Weight bearing as tolerated Dressing / Incision Call your doctor if you observe: Fever of 101 or Higher, Shortness of breath, Dizziness, Chest pain and Increased palpitations (irregular heartbeat) Follow Up Care Test Results: Test results from this visit will be discussed in further detail at your follow-up appointment, if applicable. Discharge Plan Admission Admit Date/Time: 02/15/25 17:40 Primary Reason for Your Visit: acute alcohol withdrawal Attending Provider: Tammy Cespedes Primary Care Provider: Peggy Nicole Consulting Providers: Samantha Leung; Vu Jean Instructions Patient Instructions: Alcohol Withdrawal: What to Expect, ED Withdrawal Alcohol Discharge Orders/Prescriptions Prescriptions: Continued amlodipine 5 mg tablet 5 mg PO DAILY ibuprofen 600 mg tablet 600 mg PO TID PRN (Reason: pain) Patient Comments: PT ONLY TAKES 1-2 TIMES A DAY hydroxyzine pamoate 25 mg capsule 50 mg PO TID PRN (Reason: anxiety) duloxetine 60 mg capsule,delayed release(DR/EC) 60 mg PO DAILY buspirone 10 mg tablet 10 mg PO TID duloxetine 30 mg capsule,delayed release(DR/EC) 30 mg PO QHS Referrals / Follow Up: Peggy Nicole DO [Primary Care Provider] - Within 1 Week Care Physician,No Primary [Non-Staff] - Disposition Disposition (needs filled in before D/C Order can be placed): Home, Self Care 02/18/25 1244 Tammy Cespedes MD CC: Dr. Samantha Leung MD; Dr. Peggy Nicole DO; Dr. Vu Jean MD Signed Normal [facility] Electrocardiogram reportOrde red By: Blas Bergman on 02-18-2025 EKG study [facility] [address] [place] [address] 12 Lead EKG 02/15/25 1556 MR#: [id number] Acct: [id number] Name: SLOAN HARVEY Rep #:[id number] : 1970 55 From: Blas solitario MD Attending Dr: Dr. Tammy Cespedes MD Status: ADM IN Ordering Dr: Kris Wood DO Date: Location: [facility] Sex: M C Admitted: 02/15/25 Test Reason : SUB ABUSE Blood Pressure : */* mmHG Vent. Rate : 99 BPM Atrial Rate : 86 BPM P-R Int : 138 ms QRS Dur : 84 ms QT Int : 390 ms P-R-T Axes : 37 15 14 degrees QTcB Int : 500 ms Sinus rhythm with Premature supraventricular complexes Nonspecific ST abnormality Prolonged QT Abnormal ECG Confirmed by Blas Bergman ([id number]), news copy editor REGINA UGALDE ([id number]) on 02/18/2025 10:49:48 AM Referred By: Kris Wood Confirmed By: Blas Bergman 02/18/25 1049 Date _ Blas Bergman MD CC: Dr. Peggy Nicole DO; Dr. Tammy Cespedes MD; Dr. Kris Wood DO ~ Signed [facility] Other Phone: Glomerular filtration rate ( GFR) estimation/1.73 sq m using serum, plasma, or whole bOrdered By: Vu Jean on 02-18-2025 GFR/1.73 sq M.predicted among non-blacks MDRD (S/P/Bld) [Vol rate/Area] 102 mL/min/{1.73_m2} >60 [facility] Comment on above: mL/min/1.73m2 CKD-EP I Creatinine Equation (2020) Laboratory - Chemistry and C hemistry - challengeOrdered By: Vu Jean on 02-18-2025 AST [Catalytic activity/Vol] 132 U/L High <38 [facility] Potassium measurement (mass/ volume)Ordered By: Vu Jean on 02-18-2025 Potassium (Unsp spec) [Mass/Vol] 3.7 mmol/L 3.3-5.1 [facility] Serum creatinine measurement (mass/volume)Ordered By: Vu Jean on 02-18-2025 Creatinine [Mass/Vol] 0.86 mg/dL 0.70-1.[address] [facility] Serum globulin measurementOr dered By: Vu Jean on 02-18-2025 Globulin (S) [Mass/Vol] 2.9 g/dL 2.2-4.2 [facility] Serum glucose measurement (m ass/volume)Ordered By: Vu Jean on 02-18-2025 Glucose [Mass/Vol] 105 mg/dL High 70-99 [facility] Serum or plasma alanine davidson otransferase (ALT) measurementOrdered By: Vu Jean on 02-18-2025 ALT [Catalytic activity/Vol] 120 U/L High <47 [facility] Serum or plasma albumin che urement (mass/volume)Ordered By: Vu Jean on 02-18-2025 Albumin [Mass/Vol] 4.1 g/dL 3.5-5.0 [facility] Serum or plasma albumin/glob ulin mass ratioOrdered By: Vu Jean on 02-18-2025 Albumin/Globulin [Mass ratio] 1.4 {ratio} 0.9-2.4 [facility] Serum or plasma alkaline salma sphatase measurementOrdered By: Vu Jean on 02-18-2025 ALP [Catalytic activity/Vol] 129 U/L 40-129 [facility] Serum or plasma calcium che urement (mass/volume)Ordered By: Vu Jean on 02-18-2025 Calcium [Mass/Vol] 9.4 mg/dL 7.6-11.0 [facility] Serum or plasma urea nitroge n measurement (mass/volume)Ordered By: Vu Jean on 02-18-2025 Urea nitrogen [Mass/Vol] 10 mg/dL 4-19 [facility] Sodium levelOrdered By: Regina Jean on 02-18-2025 Sodium [Moles/Vol] 138 mmol/L 133-145 [facility] Total proteinOrdered By: Ann Jean on 02-18-2025 Protein [Mass/Vol] 7.0 g/dL 5.9-8.4 [facility] Comprehensive Metabolic Prof ilon 02-17-2025 Albumin [Mass/Vol] 4.3 g/dL Normal 3.5-5.0 [facility] Comment on above: Performed By: #### L 499.0042 #### [facility] [address] [place], [place], [id number] Albumin/Globulin [Mass ratio] 1.4 {ratio} Normal 0.9-2.4 [facility] Comment on above: Performed By: #### L 499.0042 #### [facility] [address] [place], [place], [id number] ALK PHOS 130 U/L High 40-129 [facility] Comment on above: Performed By: #### L 499.0042 #### [facility] [address] [place], [address] ALT [Catalytic activity/Vol] 100 U/L High <=46 [facility] Comment on above: Performed By: #### L 499.0042 #### [facility] [address] [place], [address] AST [Catalytic activity/Vol] 101 U/L High <=37 [facility] Comment on above: Performed By: #### L 499.0042 #### [facility] [address] [place], [address] Bilirubin [Mass/Vol] 0.74 mg/dL Normal 0.00-1.30 [facility] Comment on above: Performed By: #### L 499.0042 #### [facility] [address] [place], [address] BUN/CRE 13.5 RATIO Normal 10-20 [facility] Comment on above: Performed By: #### L 499.0042 #### [facility] [address] [place], [address] Calcium [Mass/Vol] 9.4 mg/dL Normal 7.6-11.0 [facility] Comment on above: Performed By: #### L 499.0042 #### [facility] [address] [place], [address] Chloride [Moles/Vol] 102 mmol/L Normal 98-108 [facility] Comment on above: Performed By: #### L 499.0042 #### [facility] [address] [place], [address] CO2 [Moles/Vol] 25.8 mmol/L Normal 21.0-32.0 [facility] Comment on above: Performed By: #### L 499.0042 #### [facility] [address] [place], [address] Creatinine [Mass/Vol] 0.90 mg/dL Normal 0.70-1.[address] [facility] Comment on above: Performed By: #### L 499.0042 #### [facility] [address] [place], [address] ECRCL 115.01 ml/min Normal 50-250 [facility] Comment on above: Performed By: #### L 499.0042 #### [facility] [address] [place], [address] GAP 11 Normal 5-15 [facility] Comment on above: Performed By: #### L 499.0042 #### [facility] [address] [place], [address] GFR/1.73 sq M.predicted among non-blacks MDRD (S/P/Bld) [Vol rate/Area] 100 mL/min/{1.73_m2} Normal >60 [facility] Comment on above: Result Comment: mL/m in/1.73m2 CKD-EPI Creatinine Equation (2020) Performed By: #### L 499.0042 #### [facility] [address] [place], [address] Globulin (S) [Mass/Vol] 3.1 g/dL Normal 2.2-4.2 [facility] Comment on above: Performed By: #### L 499.0042 #### [facility] [address] [place], [address] Glucose [Mass/Vol] 102 mg/dL High 70-99 [facility] Comment on above: Performed By: #### L 499.0042 #### [facility] [address] [place], [address] Potassium [Moles/Vol] 3.9 mmol/L Normal 3.3-5.[address] [facility] Comment on above: Performed By: #### L 499.0042 #### [facility] [address] [place], [address] Sodium [Moles/Vol] 139 mmol/L Normal 133-145 [facility] Comment on above: Performed By: #### L 499.0042 #### [facility] [address] [place], [place], [id number] T PROT 7.4 g/dL Normal 5.9-8.4 [facility] Comment on above: Performed By: #### L 499.0042 #### [facility] [address] [place], [place], [id number] Urea nitrogen [Mass/Vol] 12 mg/dL Normal 4-19 [facility] Comment on above: Performed By: #### L 499.0042 #### [facility] [address] [place], [place], [id number] Absolute lymphocyte countOrd ered By: Samantha Leung on 02-16-2025 Lymphocytes Auto (Unsp spec) [#/Vol] 1.34 10*3/uL 0.83-4.51 [facility] Absolute neutrophil countOrd ered By: Samantha Leung on 02-16-2025 Neutrophils (Bld) [#/Vol] 2.7 10*3/uL 2.0-7.7 [facility] Automated lymphocyte count a s percentage of total leukocytesOrdered By: Samantha Leung on 02-16-2025 Lymphocytes/100 WBC Auto (Unsp spec) 27.9 % 19-41 [facility] Basic Metabolic Profile (BMP )on 02-16-2025 BUN/CRE 15.4 RATIO Normal 10-20 [facility] Comment on above: Performed By: #### L 499.0042 #### [facility] [address] [place], [address] Calcium [Mass/Vol] 9.1 mg/dL Normal 7.6-11.0 [facility] Comment on above: Performed By: #### L 499.0042 #### [facility] [address] [place], [address] Chloride [Moles/Vol] 99 mmol/L Normal 98-108 [facility] Comment on above: Performed By: #### L 499.0042 #### [facility] [address] [place], [address] CO2 [Moles/Vol] 25.4 mmol/L Normal 21.0-32.0 [facility] Comment on above: Performed By: #### L 499.0042 #### [facility] [address] [place], [address] Creatinine [Mass/Vol] 0.92 mg/dL Normal 0.70-1.[address] [facility] Comment on above: Performed By: #### L 499.0042 #### [facility] [address] [place], [address] ECRCL 112.51 ml/min Normal 50-250 [facility] Comment on above: Performed By: #### L 499.0042 #### [facility] [address] [place], [address] GAP 12 Normal 5-15 [facility] Comment on above: Performed By: #### L 499.0042 #### [facility] [address] [place], [address] GFR/1.73 sq M.predicted among non-blacks MDRD (S/P/Bld) [Vol rate/Area] 98 mL/min/{1.73_m2} Normal >60 [facility] Comment on above: Result Comment: mL/m in/1.73m2 CKD-EPI Creatinine Equation (2020) Performed By: #### L 499.0042 #### [facility] [address] [place], [address] Glucose [Mass/Vol] 95 mg/dL Normal 70-99 [facility] Comment on above: Performed By: #### L 499.0042 #### [facility] [address] [place], [address] Potassium [Moles/Vol] 4.2 mmol/L Normal 3.3-5.[address] [facility] Comment on above: Result Comment: Hemo lysis present, Results??could be affected. ?? Performed By: #### L 499.0042 #### [facility] [address] [place], [address] Sodium [Moles/Vol] 137 mmol/L Normal 133-145 [facility] Comment on above: Performed By: #### L 499.0042 #### [facility] [address] [place], [address] Urea nitrogen [Mass/Vol] 14 mg/dL Normal 4-19 [facility] Comment on above: Performed By: #### L 499.0042 #### [facility] [address] [place], [address] Basophil percentageOrdered B y: Samantha Leung on 02-16-2025 Basophils/100 WBC (Bld) 1.0 % 0-1 [facility] Bilirubin directOrdered By: Samantha Leung on 02-16-2025 Bilirubin.direct [Mass/Vol] 0.46 mg/dL High 0.00-0.30 [facility] Comment on above: Hemolysis present, R esults could be affected. CBC W/Diff, Automatedon 01-19 Absolute Lymph 1.34 X10 3/uL Normal 0.83-4.51 [facility] Comment on above: Performed By: #### L 500.3400, L501.9520, L300.3900, L100.0100, L500.2500, L501.2300, L501.5200, L500.4050 #### [facility] [address] [place], [address] Absolute Neut 2.7 X10 3/uL Normal 2.0-7.7 [facility] Comment on above: Performed By: #### L 500.3400, L501.9520, L300.3900, L100.0100, L500.2500, L501.2300, L501.5200, L500.4050 #### [facility] [address] [place], [address] Basophils/100 WBC (Bld) 1.0 % Normal 0-1 [facility] Comment on above: Performed By: #### L 500.3400, L501.9520, L300.3900, L100.0100, L500.2500, L501.2300, L501.5200, L500.4050 #### [facility] [address] [place], [address] Eosinophils/100 WBC (Bld) 3.5 % Normal 0-5 [facility] Comment on above: Performed By: #### L 500.3400, L501.9520, L300.3900, L100.0100, L500.2500, L501.2300, L501.5200, L500.4050 #### [facility] [address] [place], [address] Erythrocyte distribution width (RBC) [Ratio] 12.1 % Normal 11.6-14.6 [facility] Comment on above: Performed By: #### L 500.3400, L501.9520, L300.3900, L100.0100, L500.2500, L501.2300, L501.5200, L500.4050 #### [facility] [address] [place], [address] Hematocrit (Bld) [Volume fraction] 41.7 % Normal 40-54 [facility] Comment on above: Performed By: #### L 500.3400, L501.9520, L300.3900, L100.0100, L500.2500, L501.2300, L501.5200, L500.4050 #### [facility] [address] [place], [address] Hemoglobin (Bld) [Mass/Vol] 14.3 g/dL Normal 13.0-16.5 [facility] Comment on above: Performed By: #### L 500.3400, L501.9520, L300.3900, L100.0100, L500.2500, L501.2300, L501.5200, L500.4050 #### [facility] [address] [place], [address] IG% 0.200 Normal 0.0-0.9 [facility] Comment on above: Result Comment: IG% - Immature Granulocytes (promyelocytes, myelocytes and metamyelocytes) > 1% indicates that a LEFT SHIFT is Present. Performed By: #### L 500.3400, L501.9520, L300.3900, L100.0100, L500.2500, L501.2300, L501.5200, L500.4050 #### [facility] [address] [place], [address] Lymphocytes/100 WBC (Bld) 27.9 % Normal 19-41 [facility] Comment on above: Performed By: #### L 500.3400, L501.9520, L300.3900, L100.0100, L500.2500, L501.2300, L501.5200, L500.4050 #### [facility] [address] [place], [address] MCH (RBC) [Entitic mass] 31.0 pg Normal 27.0-32.0 [facility] Comment on above: Performed By: #### L 500.3400, L501.9520, L300.3900, L100.0100, L500.2500, L501.2300, L501.5200, L500.4050 #### [facility] [address] [place], [address] MCHC (RBC) [Mass/Vol] 34.3 g/dL Normal 32-[address] [facility] Comment on above: Performed By: #### L 500.3400, L501.9520, L300.3900, L100.0100, L500.2500, L501.2300, L501.5200, L500.4050 #### [facility] [address] [place], [address] MCV (RBC) [Entitic vol] 90.5 fL Normal 80-94 [facility] Comment on above: Performed By: #### L 500.3400, L501.9520, L300.3900, L100.0100, L500.2500, L501.2300, L501.5200, L500.4050 #### [facility] [address] [place], [address] Monocytes/100 WBC (Bld) 10.4 % High 0-10 [facility] Comment on above: Performed By: #### L 500.3400, L501.9520, L300.3900, L100.0100, L500.2500, L501.2300, L501.5200, L500.4050 #### [facility] [address] [place], [address] Neutrophils/100 WBC (Bld) 57.0 % Normal 47-70 [facility] Comment on above: Performed By: #### L 500.3400, L501.9520, L300.3900, L100.0100, L500.2500, L501.2300, L501.5200, L500.4050 #### [facility] [address] [place], [address] Nucleated RBC (Bld) [#/Vol] 0 10*3/uL Normal 0-5 [facility] Comment on above: Performed By: #### L 500.3400, L501.9520, L300.3900, L100.0100, L500.2500, L501.2300, L501.5200, L500.4050 #### [facility] [address] [place], [address] Platelet mean volume (Bld) [Entitic vol] 9.4 fL Normal 6.2-12.0 [facility] Comment on above: Performed By: #### L 500.3400, L501.9520, L300.3900, L100.0100, L500.2500, L501.2300, L501.5200, L500.4050 #### [facility] [address] [place], [address] Platelets (Bld) [#/Vol] 189 10*3/uL Normal 150-450 [facility] Comment on above: Performed By: #### L 500.3400, L501.9520, L300.3900, L100.0100, L500.2500, L501.2300, L501.5200, L500.4050 #### [facility] [address] [place], [address] RBC (Bld) [#/Vol] 4.61 10*6/uL Normal 4.6-6.2 [facility] Comment on above: Performed By: #### L 500.3400, L501.9520, L300.3900, L100.0100, L500.2500, L501.2300, L501.5200, L500.4050 #### [facility] [address] [place], [address] RDW SD 40.1 fl Normal 35.1-43.9 [facility] Comment on above: Performed By: #### L 500.3400, L501.9520, L300.3900, L100.0100, L500.2500, L501.2300, L501.5200, L500.4050 #### [facility] [address] [place], [address] WBC (Bld) [#/Vol] 4.8 10*3/uL Normal 4.4-11.0 [facility] Comment on above: Performed By: #### L 500.3400, L501.9520, L300.3900, L100.0100, L500.2500, L501.2300, L501.5200, L500.4050 #### [facility] [address] [place], [place], [address] Comprehensive Metabolic Prof ilon 02-16-2025 Albumin/Globulin [Mass ratio] 1.4 {ratio} Normal 0.9-2.4 [facility] Comment on above: Performed By: #### L 499.0042 #### [facility] [address] [place], [place], [address] Eosinophil percentageOrdered By: Samantha Leung on 02-16-2025 Eosinophils/100 WBC (Bld) 3.5 % 0-5 [facility] Erythrocyte distribution wid th ratioOrdered By: Samantha Leung on 02-16-2025 Erythrocyte distribution width (RBC) [Ratio] 12.1 % 11.6-14.6 [facility] Erythrocyte distribution wid th standard deviationOrdered By: Samantha Leung on 02-16-2025 Erythrocyte distribution width (RBC) [Ratio] 40.1 fl 35.1-43.9 [facility] Hematocrit Auto (Bld) [Volum e fraction]Ordered By: Samantha Leung on 02-16-2025 Hematocrit (Bld) [Volume fraction] 41.7 % 40-54 [facility] Hemoglobin measurementOrdere d By: Samantha Leung on 02-16-2025 Hemoglobin (Bld) [Mass/Vol] 14.3 g/dL 13.0-16.5 [facility] Immature granulocytes/100 WB C Auto (Bld)Ordered By: Samantha Leung on 02-16-2025 Immature granulocytes/100 WBC (Bld) 0.200 % 0.0-0.9 [facility] Comment on above: IG% - Immature Granu locytes (promyelocytes, myelocytes and metamyelocytes) > 1% indicates that a LEFT SHIFT is Present. International normalized rat io (INR) calculationOrdered By: Samantha Leung on 02-16-2025 INR Coag (Bld) [Relative time] 1.1 {INR} [facility] Liver Profileon 02-16-2025 Albumin [Mass/Vol] 4.1 g/dL Normal 3.5-5.0 [facility] Comment on above: Performed By: #### L 499.0042 #### [facility] [address] [place], [address] ALK PHOS 107 U/L Normal 40-129 [facility] Comment on above: Performed By: #### L 499.0042 #### [facility] [address] [place], [address] ALT [Catalytic activity/Vol] 101 U/L High <=46 [facility] Comment on above: Performed By: #### L 499.0042 #### [facility] [address] [place], [address] AST [Catalytic activity/Vol] 133 U/L High <=37 [facility] Comment on above: Result Comment: Hemo lysis present, Results??could be affected. ?? Performed By: #### L 499.0042 #### [facility] [address] [place], [address] Bilirubin [Mass/Vol] 1.43 mg/dL High 0.00-1.30 [facility] Comment on above: Performed By: #### L 499.0042 #### [facility] [address] [place], [address] Bilirubin.direct [Mass/Vol] 0.46 mg/dL High 0.00-0.30 [facility] Comment on above: Result Comment: Hemo lysis present, Results??could be affected. ?? Performed By: #### L 499.0042 #### [facility] [address] [place], [address] Globulin (S) [Mass/Vol] 3.0 g/dL Normal 2.2-4.2 [facility] Comment on above: Performed By: #### L 499.0042 #### [facility] [address] [place], [address] T PROT 7.1 g/dL Normal 5.9-8.4 [facility] Comment on above: Performed By: #### L 499.0042 #### [facility] [address] [place], [address] MCV (mean corpuscular volume ) determinationOrdered By: Samantha Leung on 02-16-2025 MCV (RBC) [Entitic vol] 90.5 fL 80-94 [facility] Magnesiumon 02-16-2025 Magnesium [Mass/Vol] 2.2 mg/dL Normal 1.5-2.2 [facility] Comment on above: Performed By: #### L 500.3400, L501.9520, L300.3900, L100.0100, L500.2500, L501.2300, L501.5200, L500.4050 #### [facility] [address] [place], [place], [id number] Magnesium measurement (mass/ volume)Ordered By: Samantha Leung on 02-16-2025 Magnesium (Unsp spec) [Mass/Vol] 2.2 mg/dL 1.5-2.2 [facility] Mean corpuscular hemoglobin (MCH) determinationOrdered By: Samantha Leung on 02-16-2025 MCH (RBC) [Entitic mass] 31.0 pg 27.0-32.0 [facility] Mean corpuscular hemoglobin concentration (MCHC) determinationOrdered By: Samantha Leung on 02-16-2025 MCHC (RBC) [Mass/Vol] 34.3 g/dL 32-[address] [facility] Mean platelet volume determi nationOrdered By: Samantha Leung on 02-16-2025 Platelet mean volume (Bld) [Entitic vol] 9.4 fL 6.2-12.0 [facility] Monocyte percentageOrdered B y: Samantha Leung on 02-16-2025 Monocytes/100 WBC (Bld) 10.4 % High 0-10 [facility] Neutrophil percentageOrdered By: Samantha Leung on 02-16-2025 Neutrophils/100 WBC (Bld) 57.0 % 47-70 [facility] Nucleated red blood cell per centageOrdered By: Samantha Leung on 02-16-2025 Nucleated RBC/100 WBC (Bld) [Ratio] 0 % 0-5 [facility] Phosphoruson 02-16-2025 Phosphate [Mass/Vol] 3.7 mg/dL Normal 2.7-4.5 [facility] Comment on above: Performed By: #### L 500.3400, L501.9520, L300.3900, L100.0100, L500.2500, L501.2300, L501.5200, L500.4050 #### [facility] [address] [place], [place], [id number] ([phone]) Platelet countOrdered By: Bobby Leung on 02-16-2025 Platelets (Bld) [#/Vol] 189 10*3/uL 150-450 [facility] Prothrombin Time w/INRon INR Coag (PPP) [Relative time] 1.1 {INR} Normal [facility] Comment on above: Performed By: #### L 499.0042 #### [facility] [address] [place], [place], [phone] PT Coag (PPP) [Time] 14.4 s Normal 11.7-14.9 [facility] Comment on above: Performed By: #### L 499.0042 #### [facility] [address] [place], [address] Prothrombin timeOrdered By: Samantha Leung on 02-16-2025 PT Coag (PPP) [Time] 14.4 s 11.7-14.9 [facility] RBC Auto (Bld) [#/Vol]Ordere d By: Samantha Leung on 02-16-2025 RBC (Bld) [#/Vol] 4.61 10*6/uL 4.6-6.2 [facility] TSH DL <= 0.005 mIU/L QnOrde red By: Samantha Leung on 02-16-2025 TSH Qn 3.250 uIU/mL 0.300-4.200 [facility] Thyroid Stim Hormone (TSH)on 02-16-2025 TSH 3.250 uIU/mL Normal 0.300-4.200 [facility] Comment on above: Performed By: #### L 499.0042 #### [facility] [address] [facility] [place], [place], [phone] White blood cell (WBC) count Ordered By: Samantha Leung on 02-16-2025 WBC (Bld) [#/Vol] 4.8 10*3/uL 4.4-11.0 [facility] 12 Lead EKGon 02-15-2025 12 Lead EKG [facility] [address] [place] [address] 12 Lead EKG 02/15/25 1556 MR#: [id number] Acct: [id number] Name: SLOAN HARVEY Rep #: [id number] : 1970 55 From: Blas Bergman MD Attending Dr: Dr. Tammy Cespedes MD Status: AD M IN Ordering Dr: Kris Wood DO Date: 02/15/25 [place] [facility] [place] M C Admitted: 02/15/25 Test Reason : SUB ABUSE Blood Pressure : */* mmHG Vent. Rate : 99 BPM Atrial Rate : 86 BPM P-R Int : 138 ms QRS Dur : 84 ms QT Int : 390 ms P-R-T Axes : 37 15 14 degrees QTcB Int : 500 ms Sinus rhythm with Premature supraventricular complexes Nonspecific ST abnormality Prolonged QT Abnormal ECG Confirmed by Blas Bergman ([id number]), news copy editor REGINA UGALDE ([id number]) on 02/18/2025 10:49:48 AM Referred By: Kris Wodo Confirmed By: Blas Bergman 02/18/25 1049 Date Blas Bergman MD CC: Dr. Peggy Nicole DO; Dr. Tammy Cespedes MD; Dr. Kris Wood DO Signed Normal [facility] Absolute lymphocyte countOrd ered By: Kris Wood on 02-15-2025 Lymphocytes Auto (Unsp spec) [#/Vol] 1.64 10*3/uL 0.83-4.51 [facility] Absolute neutrophil countOrd ered By: Kris Wood on 02-15-2025 Neutrophils (Bld) [#/Vol] 4.6 10*3/uL 2.0-7.7 [facility] Alcohol, Blood (Medical)-Ser umon 02-15-2025 SERUM ETOH 97.6 mg/dL High <=10.0 [facility] Comment on above: Result Comment: This test is for medical purposes only. The legal definition of intoxication varies according to local law. Performed By: #### L 100.0100, L501.9100, L505.5000 #### [facility] [address] [place], [address] Amphetamine detection with 1 000 ng/mL as cutoffOrdered By: Kris Wood on 02-15-2025 Amphetamines Screen method >1000 ng/mL Ql (U) Negative < 200 ng/mL [facility] Anion gap in Serum or Plasma Ordered By: Kris Wood on 02-15-2025 Anion gap [Moles/Vol] 18 mmol/L High 5-[address] [facility] Automated lymphocyte count a s percentage of total leukocytesOrdered By: Kris Wood on 02-15-2025 Lymphocytes/100 WBC Auto (Unsp spec) 23.7 % 19-41 [facility] BUN/creatinine ratioOrdered By: Kris Wood on 02-15-2025 Urea nitrogen/Creatinine [Mass ratio] 14.6 mg/mg 10-20 [facility] Basophil percentageOrdered B y: Remus Wood on 02-15-2025 Basophils/100 WBC (Bld) 1.0 % 0-1 [facility] Bilirubin, totalOrdered By: Kris Wood on 02-15-2025 Bilirubin [Mass/Vol] 1.02 mg/dL 0.00-1.30 [facility] CBC W/Diff, Automatedon 01-19 Absolute Lymph 1.64 X10 3/uL Normal 0.83-4.51 [facility] Comment on above: Performed By: #### L 100.0100, L501.9100, L505.5000 #### [facility] [address] [place], [address] Absolute Neut 4.6 X10 3/uL Normal 2.0-7.7 [facility] Comment on above: Performed By: #### L 100.0100, L501.9100, L505.5000 #### [facility] [address] [place], [address] Basophils/100 WBC (Bld) 1.0 % Normal 0-1 [facility] Comment on above: Performed By: #### L 100.0100, L501.9100, L505.5000 #### [facility] [address] [place], [address] Eosinophils/100 WBC (Bld) 1.9 % Normal 0-5 [facility] Comment on above: Performed By: #### L 100.0100, L501.9100, L505.5000 #### [facility] [address] [place], [address] Erythrocyte distribution width (RBC) [Ratio] 12.1 % Normal 11.6-14.6 [facility] Comment on above: Performed By: #### L 100.0100, L501.9100, L505.5000 #### [facility] [address] [place], [address] Hematocrit (Bld) [Volume fraction] 42.9 % Normal 40-54 [facility] Comment on above: Performed By: #### L 100.0100, L501.9100, L505.5000 #### [facility] [address] [place], [address] Hemoglobin (Bld) [Mass/Vol] 14.8 g/dL Normal 13.0-16.5 [facility] Comment on above: Performed By: #### L 100.0100, L501.9100, L505.5000 #### [facility] [address] [place], [address] IG% 0.300 Normal 0.0-0.9 [facility] Comment on above: Result Comment: IG% - Immature Granulocytes (promyelocytes, myelocytes and metamyelocytes) > 1% indicates that a LEFT SHIFT is Present. Performed By: #### L 100.0100, L501.9100, L505.5000 #### [facility] [address] [place], [address] Lymphocytes/100 WBC (Bld) 23.7 % Normal 19-41 [facility] Comment on above: Performed By: #### L 100.0100, L501.9100, L505.5000 #### [facility] [address] [place], [address] MCH (RBC) [Entitic mass] 30.7 pg Normal 27.0-32.0 [facility] Comment on above: Performed By: #### L 100.0100, L501.9100, L505.5000 #### [facility] [address] [place], [address] MCHC (RBC) [Mass/Vol] 34.5 g/dL Normal 32-[address] [facility] Comment on above: Performed By: #### L 100.0100, L501.9100, L505.5000 #### [facility] [address] [place], [address] MCV (RBC) [Entitic vol] 89.0 fL Normal 80-94 [facility] Comment on above: Performed By: #### L 100.0100, L501.9100, L505.5000 #### [facility] [address] [place], [address] Monocytes/100 WBC (Bld) 6.9 % Normal 0-10 [facility] Comment on above: Performed By: #### L 100.0100, L501.9100, L505.5000 #### [facility] [address] [place], [address] Neutrophils/100 WBC (Bld) 66.2 % Normal 47-70 [facility] Comment on above: Performed By: #### L 100.0100, L501.9100, L505.5000 #### [facility] [address] [place], [address] Nucleated RBC (Bld) [#/Vol] 0 10*3/uL Normal 0-5 [facility] Comment on above: Performed By: #### L 100.0100, L501.9100, L505.5000 #### [facility] [address] [place], [address] Platelet mean volume (Bld) [Entitic vol] 9.1 fL Normal 6.2-12.0 [facility] Comment on above: Performed By: #### L 100.0100, L501.9100, L505.5000 #### [facility] [address] [place], [address] Platelets (Bld) [#/Vol] 216 10*3/uL Normal 150-450 [facility] Comment on above: Performed By: #### L 100.0100, L501.9100, L505.5000 #### [facility] [address] [place], [address] RBC (Bld) [#/Vol] 4.82 10*6/uL Normal 4.6-6.2 [facility] Comment on above: Performed By: #### L 100.0100, L501.9100, L505.5000 #### [facility] [address] [place], [address] RDW SD 40.0 fl Normal 35.1-43.9 [facility] Comment on above: Performed By: #### L 100.0100, L501.9100, L505.5000 #### [facility] [address] [place], [address] WBC (Bld) [#/Vol] 6.9 10*3/uL Normal 4.4-11.0 [facility] Comment on above: Performed By: #### L 100.0100, L501.9100, L505.5000 #### [facility] [address] [place], [address] Carbon dioxide, total [Moles /volume] in Central venous bloodOrdered By: Kris Wood on 02-15-2025 CO2 [Moles/Vol] 20.7 mmol/L Low 21.0-32.0 [facility] Chloride assayOrdered By: Radha Wood on 02-15-2025 Chloride [Moles/Vol] 96 mmol/L Low 98-108 [facility] Comprehensive Metabolic Prof ilon 02-15-2025 Albumin [Mass/Vol] 4.5 g/dL Normal 3.5-5.0 [facility] Comment on above: Performed By: #### L 500.4050 #### [facility] [address] [place], [address] Albumin/Globulin [Mass ratio] 1.4 {ratio} Normal 0.9-2.4 [facility] Comment on above: Performed By: #### L 500.4050 #### [facility] [address] [place], [address] ALK PHOS 112 U/L Normal 40-129 [facility] Comment on above: Performed By: #### L 500.4050 #### [facility] [address] [place], [address] ALT [Catalytic activity/Vol] 115 U/L High <=46 [facility] Comment on above: Performed By: #### L 500.4050 #### [facility] [address] [place], [address] AST [Catalytic activity/Vol] 153 U/L High <=37 [facility] Comment on above: Performed By: #### L 500.4050 #### [facility] [address] [place], [address] Bilirubin [Mass/Vol] 1.02 mg/dL Normal 0.00-1.30 [facility] Comment on above: Performed By: #### L 500.4050 #### [facility] [address] [place], [address] BUN/CRE 14.6 RATIO Normal 10-20 [facility] Comment on above: Performed By: #### L 500.4050 #### [facility] [address] [place], [address] Calcium [Mass/Vol] 9.3 mg/dL Normal 7.6-11.0 [facility] Comment on above: Performed By: #### L 500.4050 #### [facility] [address] [place], [address] Chloride [Moles/Vol] 96 mmol/L Low 98-108 [facility] Comment on above: Performed By: #### L 500.4050 #### [facility] [address] [place], [address] CO2 [Moles/Vol] 20.7 mmol/L Low 21.0-32.0 [facility] Comment on above: Performed By: #### L 500.4050 #### [facility] [address] [place], [address] Creatinine [Mass/Vol] 1.19 mg/dL Normal 0.70-1.[address] [facility] Comment on above: Performed By: #### L 500.4050 #### [facility] [address] [place], [address] ECRCL 87.20 ml/min Normal 50-250 [facility] Comment on above: Performed By: #### L 500.4050 #### [facility] [address] [place], [address] GAP 18 High 5-15 [facility] Comment on above: Performed By: #### L 500.4050 #### [facility] [address] [place], [address] GFR/1.73 sq M.predicted among non-blacks MDRD (S/P/Bld) [Vol rate/Area] 72 mL/min/{1.73_m2} Normal >60 [facility] Comment on above: Result Comment: mL/m in/1.73m2 CKD-EPI Creatinine Equation (2020) Performed By: #### L 500.4050 #### [facility] [address] [place], [address] Globulin (S) [Mass/Vol] 3.2 g/dL Normal 2.2-4.2 [facility] Comment on above: Performed By: #### L 500.4050 #### [facility] [address] [place], [address] Glucose [Mass/Vol] 142 mg/dL High 70-99 [facility] Comment on above: Performed By: #### L 500.4050 #### [facility] [address] [place], [address] Potassium [Moles/Vol] 3.3 mmol/L Normal 3.3-5.[address] [facility] Comment on above: Performed By: #### L 500.4050 #### [facility] [address] [place], [address] Sodium [Moles/Vol] 135 mmol/L Normal 133-145 [facility] Comment on above: Performed By: #### L 500.4050 #### [facility] [address] [place], [address] T PROT 7.8 g/dL Normal 5.9-8.4 [facility] Comment on above: Performed By: #### L 500.4050 #### [facility] [address] [place], [place], [address] Urea nitrogen [Mass/Vol] 17 mg/dL Normal 4-19 [facility] Comment on above: Performed By: #### L 500.4050 #### [facility] [address] [place], [place], [address] Emergency Department Summary on 02-15-2025 Emergency Department Summary [facility] Medical Records Department [address] [place] [address] Emergency Department Summary 02/15/25 MR#: [id number] Acct: [id number] Name: SLOAN HARVEY Rep #: [id number] : 1970 55 From: Kris Wood DO PCP: Dr. Peggy Nicole DO Status:ADM IN Location: [place] [address] HPI History of Present Illness Chief Complaint: Substance Abuse Detail of Chief Complaint: Requesting detox from alcohol Informant: patient Narrative Narrative: Patient presents to the emergency department requesting detox from alcohol. Patient states that he was admitted about a year and a half ago for same and had done relatively well. Patient states that he relapsed for the first time in September of this year and had been staying in a sober home. Patient had a blowup with him roommate yesterday and he was kicked out of this sober home. Patient states his last drink was about an hour ago. Normally he drinks about 1/5-1/5 and a half of liquor and beer combined over the course of the day. Has had intermittent nausea and vomiting. He denies blood in stool or black tarry stool. He also describes some chest pressure that he has sometimes when he drinks but not necessarily exertional. Patient has history of a ablation in 2019. No heart history otherwise. He has no stenting. He does smoke cigarettes. [facility] Medical History Anxiety Depression Hypertension Home Medications ???Medication ???Instructions ???Recorded ???Last Taken ???Type amlodipine 5 mg tablet 5 mg PO DAILY 12/17/23 02/15/25 Hi story buspirone 10 mg tablet 10 mg PO TID 12/17/23 02/15/25 His tory duloxetine 60 mg capsule,delayed 60 mg PO DAILY 12/17/23 02/15/25 H istory release hydroxyzine pamoate 25 mg capsule 50 mg PO TID PRN anxiety 12/17/23 02/15/25 History ibuprofen 600 mg tablet 600 mg PO TID PRN pain 12/17/23 History duloxetine 30 mg capsule,delayed 30 mg PO QHS 02/15/25 Unknown Hist ory release Allergy/AdvReac Type Severity Reaction Status Date / Time No Known Allergies Allergy Verified 02/15/25 15:33 Family History (Updated 12/17/23 @ 16:[address] Sloan Villalobos DO) Other Alcoholism Social History (Updated 12/17/23 @ 16:[address] Sloan Villalobos DO) Smoking Status: Current every day smoker tobacco type: cigarettes Smokeless tobacco user: other substance use type: marijuana and amphetamines ROS ROS ED Review of Systems ROS Unobtainable: other Constitutional Constitutional ED: Reports lethargy; Denies chills, fever(s), sweats or weight loss Eyes Eyes: Denies blurry vision, change in vision or diplopia ENT ENT ED: Denies rhinorrhea or sore throat Cardiovascular Cardiovascular: Reports chest pain; Denies orthopnea or racing heartbeat Respiratory/Chest Respiratory/Chest: Denies cough, dyspnea, dyspnea on exertion, orthopnea or sputum Gastrointestinal Gastrointestinal: Reports nausea and vomiting; Denies abdominal pain or diarrhea Genitourinary Genitourinary ED: Denies dysuria, hematuria or urinary frequency Musculoskeletal Musculoskeletal: Denies arthralgias, back pain, myalgias or neck pain Integumentary Denies abscess, Abrasions or rash Neurologic Neurologic: Denies headache(s) or weakness Psychiatric Psychiatric: Denies anxiety, depression or suicidal thoughts Endocrine Endocrinology: Denies polydipsia, polyphagia or polyuria Hematologic/Lymphatic Hematologic/Lymphatic: Denies easy bleeding, easy bruising or lymphadenopathy Allergic/Immunologic Allergic/Immunologic ED: Denies mouth swelling, tongue swelling or urticaria EXAM Physical Exam Const Vital Signs: 02/15/25 15:33 02/15/25 16:33 02/15/25 17:00 Temperature 97.8 F Temperature Source Temporal Pulse Rate 98 94 78 Respiratory Rate 18 22 H 15 Blood Pressure 136/99 H 117/73 118/78 Blood Pressure Mean 111 87 91 Pulse Ox 100 98 96 Oxygen Delivery Method Room Air Room Air Room Air 02/15/25 17:34 Temperature 98.4 F Temperature Source Pulse Rate 78 Respiratory Rate 16 Blood Pressure 118/78 Blood Pressure Mean 91 Pulse Ox 96 Oxygen Delivery Method Positive well nourished and well developed General Appearance ED: well developed and NAD HEENT Reports TM's clear and moist mucous membranes normocephalic and atraumatic; Negative for trauma or tenderness Tympanic Membrane ED: Yes TM's clear Eyes PERRL and EOMs intact bilaterally General Eye ED: Negative for pale conjunctiva or scleral icterus Neck no lymphadenopathy, supple and no JVD General: Negative for tenderness Chest Wall inspection of chest normal and palpation of chest normal Chest: Negative for tenderness Resp normal respiratory effort and clear to auscultation bilaterally Effort an (more content not included)... Normal [facility] Eosinophil percentageOrdered By: Kris Wood on 02-15-2025 Eosinophils/100 WBC (Bld) 1.9 % 0-5 [facility] Erythrocyte distribution wid th ratioOrdered By: Kris Wood on 02-15-2025 Erythrocyte distribution width (RBC) [Ratio] 12.1 % 11.6-14.6 [facility] Erythrocyte distribution wid th standard deviationOrdered By: Kris Wood on 02-15-2025 Erythrocyte distribution width (RBC) [Ratio] 40.0 fl 35.1-43.9 [facility] Glomerular filtration rate ( GFR) estimation/1.73 sq m using serum, plasma, or whole bOrdered By: Kris Wood on 02-15-2025 GFR/1.73 sq M.predicted among non-blacks MDRD (S/P/Bld) [Vol rate/Area] 72 mL/min/{1.73_m2} >60 [facility] Comment on above: mL/min/1.73m2 CKD-EP I Creatinine Equation (2020) H AND P Exam - [facility] 02-15-2025 H&P Exam - Hospitalist [facility] Medical Records Department [address] [place] [address] H P Exam - Hospitalist 02/15/25 1742 MR#: [id number] Acct: [id number] Name: SLOAN HARVEY Rep #: [id number] : 1970 55 From: Samantha Leung MD PCP: Dr. Peggy Nicole, DO Status:REG ER Location: ED HPI - General General Date of Admission: 02/15/25 Date of Service: 02/15/25 Chief Complaint: Alcohol detoxification HPI Narrative SLOAN HARVEY, is a 55 M with past medical history of anxiety, depression, alcohol use disorder, nicotine abuse who presents to the ED with desire for alcohol detoxification He is a heavy alcohol user and his last drink was about 1 hour before presentation, drinks about 1/5 of locating a liquor every day and smokes half pack cigarettes daily, no other drug use. Previously admitted to [facility] for detoxification about 14 months back, and maintain sobriety for 10 months, but has been drinking steadily for the last 4 months No symptoms other than that Has been compliant with his medications for hypertension and depression Has good social support At the time of presentation in the ED BP 118/78, pulse 78, temp 98.4, oxygen saturation 96 WBC 6.9, hemoglobin 14.8, platelet count 216, sodium 135, potassium 3.3, chloride 96, BUN 17, creatinine 1.1, AST 153, ALT 115 alk phos 112, troponin T 15, bilirubin 1.02, Ethyl alcohol 97.6 PFSH Medical History Anxiety Depression Hypertension Home Medications ???Medication ???Instructions ???Recorded ???Last Taken ???Type amlodipine 5 mg tablet 5 mg PO DAILY 12/17/23 02/15/25 Hi story buspirone 10 mg tablet 10 mg PO TID 12/17/23 02/15/25 His tory duloxetine 60 mg capsule,delayed 60 mg PO DAILY 12/17/23 02/15/25 H istory release hydroxyzine pamoate 25 mg capsule 50 mg PO TID PRN anxiety 12/17/23 02/15/25 History ibuprofen 600 mg tablet 600 mg PO TID PRN pain 12/17/23 History duloxetine 30 mg capsule,delayed 30 mg PO QHS 02/15/25 Unknown Hist ory release Allergy/AdvReac Type Severity Reaction Status Date / Time No Known Allergies Allergy Verified 02/15/25 15:33 Family History (Updated 12/17/23 @ 16:[address] Sloan Villalobos DO) Other Alcoholism Social History (Updated 12/17/23 @ 16:[address] Sloan Villalobos DO) Smoking Status: Current every day smoker tobacco type: cigarettes Smokeless tobacco user: other substance use type: marijuana and amphetamines ROS Review of Systems ROS Unobtainable: Denies due to encephalopathy, due to endotracheal tube, due to mental condition, due to mental status or other Constitutional Constitutional: Denies anorexia, change in weight, chills, fatigue, fever(s), malaise, night sweats, weakness or other Eyes Eyes: Denies blurry vision, change in eye color, change in vision, discharge from eye(s), double vision, erythema, eye pain, loss of vision or other ENT HEENT: Denies abnormal hearing, dysphagia, ear pain, epistaxis, headache(s), hearing loss, nasal congestion, nasal discharge, post nasal drip, sinus pressure, sore throat or other Cardiovascular Cardiovascular: Denies chest pain, claudication, dyspnea on exertion, edema, lightheadedness, orthopnea, palpitations, paroxysmal nocturnal dyspnea, rapid heart rate, syncope or other Respiratory/Chest Respiratory/Chest: Denies cough, dyspnea, excessive phlegm production, hemoptysis, productive cough, shortness of breath at rest, shortness of breath with exertion, wheezing or other Gastrointestinal Gastrointestinal: Denies abdominal pain, coffee ground emesis, constipation, diarrhea, dyspepsia, hematemesis, hematochezia, loose stools, melena, nausea, vomiting or other Genitourinary Genitourinary: Denies burning urination, difficulty urinating, dysuria, hematuria, nocturia, urinary frequency, urinary hesitancy, urinary incontinence, urinary urgency or other Musculoskeletal Musculoskeletal: Denies arthralgias, back pain, joint pain, joint stiffness, joint swelling, myalgias, neck pain or other Neurologic Neurologic: Denies abnormal gait, abnormal speech, confusion, disequilibrium, dizziness, focal weakness, headache(s), numbness, paresthesias, seizure-like activity, seizures, syncope, tingling, tremor(s) or other Psychiatric Psychiatric: Denies anxiety, depression, homicidal ideation, suicidal ideation or other Endocrine Endocrinology: Denies change in body appearance, cold intolerance, excessive sweating, heat intolerance, polydipsia, polyuria or other Hematologic/Lymphatic Hematologic/Lymphatic: Denies anemia, easy bleeding, easy bruising, lymphadenopathy or other Vital Signs Vital Signs Vital Signs: 02/15/25 15:33 02/15/25 16:33 02/15/25 17:00 Temperature 97.8 F Temperature Source Temporal Pulse (more content not included)... Normal [facility] Hematocrit Auto (Bld) [Volum e fraction]Ordered By: Kris Wood on 02-15-2025 Hematocrit (Bld) [Volume fraction] 42.9 % 40-54 [facility] Hemoglobin measurementOrdere d By: Kris Wood on 02-15-2025 Hemoglobin (Bld) [Mass/Vol] 14.8 g/dL 13.0-16.5 [facility] Immature granulocytes/100 WB C Auto (Bld)Ordered By: Kris Wood on 02-15-2025 Immature granulocytes/100 WBC (Bld) 0.300 % 0.0-0.9 [facility] Comment on above: IG% - Immature Granu locytes (promyelocytes, myelocytes and metamyelocytes) > 1% indicates that a LEFT SHIFT is Present. L499.0042on 02-15-2025 Trop T High Sen 14 ng/L Normal <=22 [facility] Comment on above: Performed By: #### L 499.0042 #### [facility] [address] [place], [address] L499.0043on 02-15-2025 Trop T High Sen 14 ng/L Normal <=22 [facility] Comment on above: Performed By: #### L 499.0043 #### [facility] [address] [place], [address] L501.4021on 02-15-2025 Trop T High Sen 15 ng/L Normal <=22 [facility] Comment on above: Performed By: #### L 100.0100, L501.9100, L505.5000 #### [facility] [address] [place], [address] Laboratory - Chemistry and C hemistry - challengeOrdered By: Kris Wood on 02-15-2025 AST [Catalytic activity/Vol] 153 U/L High <38 [facility] MCV (mean corpuscular volume ) determinationOrdered By: Kris Wood on 02-15-2025 MCV (RBC) [Entitic vol] 89.0 fL 80-94 [facility] Mean corpuscular hemoglobin (MCH) determinationOrdered By: Kris Wood on 02-15-2025 MCH (RBC) [Entitic mass] 30.7 pg 27.0-32.0 [facility] Mean corpuscular hemoglobin concentration (MCHC) determinationOrdered By: Kris Wood on 02-15-2025 MCHC (RBC) [Mass/Vol] 34.5 g/dL 32-[address] [facility] Mean platelet volume determi nationOrdered By: Kris Wood on 02-15-2025 Platelet mean volume (Bld) [Entitic vol] 9.1 fL 6.2-12.0 [facility] Monocyte percentageOrdered B y: Kris Wood on 02-15-2025 Monocytes/100 WBC (Bld) 6.9 % 0-10 [facility] Neutrophil percentageOrdered By: Kris Wood on 02-15-2025 Neutrophils/100 WBC (Bld) 66.2 % 47-70 [facility] No Panel InformationOrdered By: Kris Wood on 02-15-2025 Urine Buprenorphine Qualitative Negative < 200 ng/mL [facility] Urine Oxycodone Screen Negative < 100 ng/mL [facility] Nucleated red blood cell per centageOrdered By: Kris Wood on 02-15-2025 Nucleated RBC/100 WBC (Bld) [Ratio] 0 % 0-5 [facility] Platelet countOrdered By: Radha Wood on 02-15-2025 Platelets (Bld) [#/Vol] 216 10*3/uL 150-450 [facility] Potassium measurement (mass/ volume)Ordered By: Kris Wood on 02-15-2025 Potassium (Unsp spec) [Mass/Vol] 3.3 mmol/L 3.3-5.1 [facility] Prothrombin Time w/INRon INR Coag (PPP) [Relative time] 1.1 {INR} Normal [facility] Comment on above: Performed By: #### L 300.3900 #### [facility] [address] [place], [place], [id number] PT Coag (PPP) [Time] 14.6 s Normal 11.7-14.9 [facility] Comment on above: Performed By: #### L 300.3900 #### [facility] [address] [place], [place], [id number] Quantitative urine opiates m easurementOrdered By: Kris Wood on 02-15-2025 Opiates Ql (U) Negative < 300 ng/mL [facility] RBC Auto (Bld) [#/Vol]Ordere d By: Kris Wood on 02-15-2025 RBC (Bld) [#/Vol] 4.82 10*6/uL 4.6-6.2 [facility] Screening urine fentanyl angela surementOrdered By: Kris Wood on 02-15-2025 fentaNYL Screen Ql (U) Negative [facility] Serum creatinine measurement (mass/volume)Ordered By: Kris Wood on 02-15-2025 Creatinine [Mass/Vol] 1.19 mg/dL 0.70-1.[address] [facility] Serum globulin measurementOr dered By: Kris Wood on 02-15-2025 Globulin (S) [Mass/Vol] 3.2 g/dL 2.2-4.2 [facility] Serum glucose measurement (m ass/volume)Ordered By: Remus Israel on 02-15-2025 Glucose [Mass/Vol] 142 mg/dL High 70-99 [facility] Serum or plasma alanine davidson otransferase (ALT) measurementOrdered By: Remus Ungur on 02-15-2025 ALT [Catalytic activity/Vol] 115 U/L High <47 [facility] Serum or plasma albumin che urement (mass/volume)Ordered By: Remus Ungur on 02-15-2025 Albumin [Mass/Vol] 4.5 g/dL 3.5-5.0 [facility] Serum or plasma albumin/glob ulin mass ratioOrdered By: Remus Ungdelicia on 02-15-2025 Albumin/Globulin [Mass ratio] 1.4 {ratio} 0.9-2.4 [facility] Serum or plasma alkaline salma sphatase measurementOrdered By: Remus Ungdelicia on 02-15-2025 ALP [Catalytic activity/Vol] 112 U/L 40-129 [facility] Serum or plasma calcium che urement (mass/volume)Ordered By: Remus Ungdelicia on 02-15-2025 Calcium [Mass/Vol] 9.3 mg/dL 7.6-11.0 [facility] Serum or plasma ethanol che urement (mass/volume)Ordered By: Remus Ungdelicia on 02-15-2025 Ethanol [Mass/Vol] 97.6 mg/dL High <10.1 [facility] Comment on above: This test is for med ical purposes only. The legal definition of intoxication varies according to local law. Serum or plasma urea nitroge n measurement (mass/volume)Ordered By: Remus Wood on 02-15-2025 Urea nitrogen [Mass/Vol] 17 mg/dL 4-19 [facility] Sodium levelOrdered By: Remu s Israel on 02-15-2025 Sodium [Moles/Vol] 135 mmol/L 133-145 [facility] Total proteinOrdered By: Rem us Ungdelicia on 02-15-2025 Protein [Mass/Vol] 7.8 g/dL 5.9-8.4 [facility] Troponin T.cardiac [Mass/vol ume] in Serum or Plasma by High sensitivity methodOrdered By: Remus Ungdelicia on 02-15-2025 Troponin T.cardiac High sensitivity method [Mass/Vol] 14 ng/L <22 [facility] Troponin T.cardiac High sensitivity method [Mass/Vol] 14 ng/L <22 [facility] Troponin T.cardiac High sensitivity method [Mass/Vol] 15 ng/L <22 [facility] Urine Drug Screen (VISTA)on 02-15-2025 AMPHETAMINES Negative Normal <1000 ng/mL [facility] Comment on above: Order Comment: UNK Performed By: #### L 100.0100, L501.9100, L505.5000 #### [facility] [address] [facility] [address] BARBITIURATES Negative Normal < 200 ng/mL [facility] Comment on above: Order Comment: UNK Performed By: #### L 100.0100, L501.9100, L505.5000 #### [facility] [address] [facility] [address] BENZODIAZIPINE Negative Normal < 200 ng/mL [facility] Comment on above: Order Comment: UNK Performed By: #### L 100.0100, L501.9100, L505.5000 #### [facility] [address] [place], [address] BUP Ur Drug Scr Negative Normal < 200 ng/mL [facility] Comment on above: Order Comment: UNK Performed By: #### L 100.0100, L501.9100, L505.5000 #### [facility] [address] [place], [address] COCAINE Negative Normal < 300 ng/mL [facility] Comment on above: Order Comment: UNK Performed By: #### L 100.0100, L501.9100, L505.5000 #### [facility] [address] [place], [address] Fentanyl Negative Normal [facility] Comment on above: Order Comment: UNK Performed By: #### L 100.0100, L501.9100, L505.5000 #### [facility] [address] [place], [address] METHADONE Negative Normal < 300 ng/mL [facility] Comment on above: Order Comment: UNK Performed By: #### L 100.0100, L501.9100, L505.5000 #### [facility] [address] [place], [address] OPIATES Negative Normal < 300 ng/mL [facility] Comment on above: Order Comment: UNK Performed By: #### L 100.0100, L501.9100, L505.5000 #### [facility] [address] [place], [address] OXYCODONE Negative Normal < 100 ng/mL [facility] Comment on above: Order Comment: UNK Performed By: #### L 100.0100, L501.9100, L505.5000 #### [facility] [address] [place], [address] PCP Negative Normal < 25 ng/mL [facility] Comment on above: Order Comment: UNK Performed By: #### L 100.0100, L501.9100, L505.5000 #### [facility] [address] [place], [address] THC Negative Normal < 50 ng/mL [facility] Comment on above: Order Comment: UNK Performed By: #### L 100.0100, L501.9100, L505.5000 #### [facility] [address] [place], [address] Urine benzodiazepine levelOr dered By: Remus Israel on 02-15-2025 Benzodiazepines Ql (U) Negative < 200 ng/mL [facility] Urine cocaine levelOrdered B y: Remus Ungur on 02-15-2025 Cocaine Ql (U) Negative < 300 ng/mL [facility] Urine enztz-1-ylelvecoamyeps abinol (THC) measurementOrdered By: Remus Castanonur on 02-15-2025 Cannabinoids Screen Ql (U) Negative < 50 ng/mL [facility] Urine phencyclidine (PCP) de tectionOrdered By: Kris Wood on 02-15-2025 Phencyclidine Ql (U) Negative < 25 ng/mL [facility] White blood cell (WBC) count Ordered By: Belinda Israel on 02-15-2025 WBC (Bld) [#/Vol] 6.9 10*3/uL 4.4-11.0 [facility] CNOVon 07-26-2024 CNOV Office Visit (UCWSTR ) -- SLOAN HARVEY ([id number]) 1970 [facility] Date Time Provider Department 07/26/24 7:15 PM DIANA ROBERTSON [facility] During your visit today, we recorded the following information about you: Temperature Pulse Respiration Blood pressure 97 degrees 64/minute 18/minute 113/75 Weight 108.7 kg Diana Robertson APRN.MAMMOGRAPHY TECHNICIAN 07/26/2024 7:49 PM Signed Subjective patient complains of dental pain on the left lower jaw. Patient says has been a couple weeks. Patient says it just started getting worse over the last couple days. Patient denies any fever chills nausea vomiting shortness of breath or chest pain. The history is provided by the patient. No manager investment was used. Dental Problem Review of Systems Constitutional: Negative. Skin: Negative. Objective Physical Exam Constitutional: Appearance: Normal appearance. HENT: Mouth/Throat: Comments: Patient said that marked above is a tooth that is painful. No signs of abscesses or drainage or swelling noted. Dental caries are present. Pulmonary: Effort: Pulmonary effort is normal. Neurological: Mental Status: He is alert. PAST MEDICAL HISTORY Diagnosis Date DDD (degenerative disc disease), lumbar History of alcoholism (HCC) SVT (supraventricular tachycardia) ([facility]) s/p ablation TIA (transient ischemic attack) PAST SURGICAL HISTORY Procedure Laterality Date PAST SURGICAL HISTORY OF 2005 spinal fusion- lumbar ALLERGIES Patient has no known allergies. MEDICATIONS amLODIPine (NORVASC) 5 mg tablet Take 1 tablet by mouth once daily. busPIRone (BUSPAR) 10 mg tablet Take 1 tablet by mouth three times a day. hydrOXYzine HCl (ATARAX) 25 mg tablet Take 1 tablet by mouth three times a day as needed. naltrexone ER (VIVITROL) 380 mg injection Inject 380 mg intramuscularly once every month. DULoxetine (CYMBALTA) 60 mg capsule Take 1 capsule by mouth once daily. amoxicillin (AMOXIL) 875 mg tablet Take 1 tablet by mouth two times a day for 7 days. FAMILY HISTORY Problem Relation Age of Onset Mental illness Mother Alcohol/Drug Father Hypertension Other Social History Tobacco Use Smoking status: Every Day Types: Cigarettes Smokeless tobacco: Never Tobacco comments: 3-5 cigs currently Substance Use Topics Alcohol use: Not Currently Comment: 41 days sober Drug use: Not Currently ASSESSMENT/PLAN: 1. Pain, dental - ICD9: 525.9, ICD10: K08.89 - AMOXICILLIN 875 MG TABLET Patient about proper use of medication and supportive therapies. Educated about red flag symptoms and to go to the ER if any of these occur. Patient will follow-up with his dentist he has an appointment for a week from now. Patient was agreeable to this care plan. Diana Robertson APRN.MAMMOGRAPHY TECHNICIAN Allergies As of Date: 07/26/2024 (No Known Allergies) Date Reviewed: 07/26/2024 Reviewed by: Erika Aldridge MA - Fully Assessed Reason for Visit: Dental Problem [31] Cmt: L lower tooth abscess x2 days Primary Visit Diagnosis:Pain, dental [K08.89] Order(s):amoxicillin (AMOXIL) 875 mg tabletTake 1 tablet by mouth two times a day for 7 days.Disp: 14 tabletRfl: 0 Prescriptions as of 07/26/2024 - amoxicillin (AMOXIL) 875 mg tablet Take 1 tablet by mouth two times a day for 7 days. - amLODIPine (NORVASC) 5 mg tablet Take 1 tablet by mouth once daily. - busPIRone (BUSPAR) 10 mg tablet Take 1 tablet by mouth three times a day. - hydrOXYzine HCl (ATARAX) 25 mg tablet Take 1 tablet by mouth three times a day as needed. - naltrexone ER (VIVITROL) 380 mg injection Inject 380 mg intramuscularly once every month. - DULoxetine (CYMBALTA) 60 mg capsule Take 1 capsule by mouth once daily. Problem List As Of Date: 07/26/2024 (None) Prescriptions ordered this encounter Disp Refills Start End AMOXICILLIN 875 MG TABLET 14 t* 0 07/26/2024 08/02/2024 Route: ORAL Sig: Take 1 tablet by mouth two times a day for 7 days. Encounter Status:Closed by DIANA ROBERTSON on 07/26/24 Normal [facility] Office Visit Reporton 2023 Office Visit Report [facility] [address] [place] [address] OFFICE VISIT Date of Service: 06/27/24 MR#: [id number] Acct: [id number] Patient: SLOAN HARVEY Rep #: [id number] : 1970 Provider: ROSA Rosenthal Age/Sex: 54/M Location: [facility] Status: Signed Intake Vital Signs 12/17/23 17:02 Height 1.8 m Intake Visit Reasons: DOT PHYSICAL/MAST Chief Complaint: DOT physical Allergies No Known Allergies Allergy (Verified 12/17/23 13:28) PFSH Medical History Anxiety Depression Hypertension Family History (Updated 12/17/23 @ 16:[address] Sloan Villalobos DO) Other Alcoholism Social History (Updated 12/17/23 @ 16:[address] Sloan Villalobos DO) Smoking Status: Current every day smoker tobacco type: cigarettes Smokeless tobacco user: other substance use type: marijuana and amphetamines HPI HPI Chief Complaint: DOT physical Details: SLOAN HARVEY, is a 54 M who presents to the office today for DOT physical. Office Procedures Physical Exam Coding PE Coding DOT PE: Yes Coding Level of Care Code No Charge Diagnoses Encounter for examination required by Department of Transportation (DOT) Z02.89 Assessment and Plan Assessment and Plan (1) Encounter for examination required by Department of Transportation (DOT): Status: Acute Plan: DOT physical - see accompanying paperwork. 1 year card issued. 06/27/24 1532 Date Jan Roman Signature: Date (if applicable) [facility] -- SLOAN HARVEY ([id number]) 1970 [facility] Date Time Provider Department 01/16/24 3:00 PM KWADWO SPIVEY [facility] During your visit today, we recorded the following information about you: Temperature Pulse Respiration Blood pressure 97.6 degrees 81/minute 18/minute 124/87 Weight 110 kg Kwadwo Spivey APRN.MAMMOGRAPHY TECHNICIAN 01/16/2024 3:37 PM Signed This note was created using NoteWriter. Subjective Sloan Harvey is a 53 year old male. HPI Pt awoke with clogged left ear about a week ago. Pt states he normally has drainage from his ear but since the ear is clogged there is no current drainage. Pt has had this for his whole life. He was to follow up with ENT but has not be able to do this yet. Review of Systems Constitutional: Negative for fatigue and fever. HENT: Positive for ear discharge and ear pain. Respiratory: Negative for cough. Objective BP 124/87 Pulse 81 Temp 36.4 ?C (97.6 ?F) Resp 18 Wt 110 kg (242 lb 8.1 oz) SpO2 95% BMI 33.82 kg/m? Physical Exam Vitals and nursing note reviewed. Constitutional: General: He is not in acute distress. Appearance: Normal appearance. He is not ill-appearing. HENT: Head: Normocephalic. Comments: Mild cerumen impaction of left ear Right Ear: Tympanic membrane normal. Mouth/Throat: Mouth: Mucous membranes are moist. Eyes: Conjunctiva/sclera: Conjunctivae normal. Cardiovascular: Rate and Rhythm: Normal rate and regular rhythm. Pulmonary: Effort: Pulmonary effort is normal. Breath sounds: Normal breath sounds. Musculoskeletal: General: Normal range of motion. Cervical back: Normal range of motion. Skin: General: Skin is warm and dry. Neurological: General: No focal deficit present. Mental Status: He is alert. Psychiatric: Mood and Affect: Mood normal. Behavior: Behavior normal. Assessment and Plan ASSESSMENT/PLAN: 1. Impacted cerumen of left ear - ICD9: 380.4, ICD10: H61.22 Patient's left ear was flushed by nursing staff with good results. Left TM was easily visualized with no perforation, erythema, or bulging noted. I discussed follow-up with ENT and patient states he has a referral pending which he will follow-up with. Kwadwo Spivey APRN.Neda Russell MA 01/16/2024 3:24 PM Signed Ambulatory Ear Lavage Pre-treatment: Warm water Treatment: Left ear Equipment and Irrigation solution and Volume used: Single use syringe with single use irrigation tip Water Return flow appearance: Brown Patient tolerated procedure: yes Tympanic membrane assessment: Tympanic membrane assessed by LIP pre and post procedure Neda Rush MA Allergies As of Date: 01/16/2024 (No Known Allergies) Date Reviewed: 01/16/2024 Reviewed by: Kwadwo Spivey APRN.MAMMOGRAPHY TECHNICIAN - Fully Assessed Reason for Visit: Ear Pain [817] Cmt: L ear x1 week, swelling and drainage Primary Visit Diagnosis:Impacted cerumen of left ear [H61.22] Prescriptions as of 01/16/2024 - busPIRone (BUSPAR) 7.5 mg tablet Take 1 tablet by mouth two times a day. - hydrOXYzine pamoate (VISTARIL) 25 mg capsule Take 1-2 capsules by mouth three times a day as needed. - amLODIPine (NORVASC) 5 mg tablet Take 1 tablet by mouth once daily. - DULoxetine (CYMBALTA) 60 mg capsule Take 1 capsule by mouth once daily. - nicotine (NICODERM) 21 mg/24 hr Apply 1 Patch as directed every 24 hours. - nicotine (NICODERM CQ) 14 mg/24 hr Apply 1 Patch as directed every 24 hours. Problem List As Of Date: 01/16/2024 (None) Visit Notes: >> Neda Rush MA Mon Jan 16, 2024 3:23 PM Status: Signed Ambulatory Ear Lavage Pre-treatment: Warm water Treatment: Left ear Equipment and Irrigation solution and Volume used: Single use syringe with single use irrigation tip Water Return flow appearance: Brown Patient tolerated procedure: yes Tympanic membrane assessment: Tympanic membrane assessed by LIP pre and post procedure Neda Rush MA Encounter Status:Closed by KWADWO SPIVEY on 01/16/24 Normal [facility] Absolute lymphocyte countOrd ered By: Lucretia Hunter on 12-17-2023 Lymphocytes Auto (Unsp spec) [#/Vol] 1.65 10*3/uL 0.83-4.51 [facility] Automated lymphocyte count a s percentage of total leukocytesOrdered By: Lucretia Hunter on 12-17-2023 Lymphocytes/100 WBC Auto (Unsp spec) 25.3 % 19-41 [facility] Basophil percentageOrdered B y: Lucretia Hunter on 12-17-2023 Basophils/100 WBC (Bld) 0.9 % 0-1 [facility] Bilirubin [Mass/Vol] 0.50 mg/dL 0.20-1.00 [facility] Comment on above: For patients on eltr ombopag therapy, use of Dimension [place] TBIL is not recommended. Chloride [Moles/Vol] 108 mmol/L 98-107 [facility] Eosinophils/100 WBC (Bld) 2.5 % 0-5 [facility] Glucose [Mass/Vol] 80 mg/dL 74-106 [facility] Hemoglobin (Bld) [Mass/Vol] 14.9 g/dL 13.0-16.5 [facility] Monocytes/100 WBC (Bld) 9.2 % 0-10 [facility] Neutrophils (Bld) [#/Vol] 4.0 10*3/uL 2.0-7.7 [facility] Neutrophils/100 WBC (Bld) 61.8 % 47-70 [facility] Potassium [Moles/Vol] 4.1 mmol/L 3.5-5.[address] [facility] Protein [Mass/Vol] 7.5 g/dL 6.4-8.2 [facility] Sodium [Moles/Vol] 140 mmol/L 136-145 [facility] WBC (Bld) [#/Vol] 6.5 10*3/uL 4.4-11.0 [facility] Determination of erythrocyte mean corpuscular volume (MCV)Ordered By: Lucretia Hunter on 12-17-2023 MCV (RBC) [Entitic vol] 90.8 fL 80-94 [facility] Erythrocyte distribution wid th ratioOrdered By: Lucretia Hunter on 12-17-2023 Erythrocyte distribution width (RBC) [Ratio] 15.1 % 11.6-14.6 [facility] Erythrocyte distribution wid th standard deviationOrdered By: Lucretia Hunter on 12-17-2023 Erythrocyte distribution width (RBC) [Entitic vol] 49.9 fL 35.1-43.9 [facility] Hematocrit Auto (Bld) [Volum e fraction]Ordered By: Lucretia Hunter on 12-17-2023 Hematocrit (Bld) [Volume fraction] 44.5 % 40-54 [facility] Immature granulocytes/100 WB C Auto (Bld)Ordered By: Lucretia Hunter on 12-17-2023 Immature granulocytes/100 WBC (Bld) 0.300 % 0.0-0.9 [facility] Comment on above: IG% - Immature Granu locytes (promyelocytes, myelocytes and metamyelocytes) > 1% indicates that a LEFT SHIFT is Present. Laboratory - Chemistry and C hemistry - challengeOrdered By: Lucretia Hunter on 12-17-2023 Albumin/Globulin [Mass ratio] 0.8 {ratio} 0.9-2.4 [facility] ALP [Catalytic activity/Vol] 121 U/L 45-117 [facility] ALT [Catalytic activity/Vol] 89 U/L 16-61 [facility] CO2 [Moles/Vol] 25.0 mmol/L 21.0-32.0 [facility] Globulin (S) [Mass/Vol] 4.1 g/dL 2.2-4.2 [facility] Urea nitrogen/Creatinine [Mass ratio] 13.8 mg/mg 10-20 [facility] Laboratory - Drug toxicology Ordered By: Lucretia Hunter on 12-17-2023 Amphetamines Ql (U) Negative <1000 ng/mL [facility] Benzodiazepines Ql (U) Negative < 200 ng/mL [facility] Cannabinoids Screen Ql (U) Positive < 50 ng/mL [facility] Cocaine Ql (U) Negative < 300 ng/mL [facility] Opiates Ql (U) Negative < 300 ng/mL [facility] Laboratory - Hematology and Cell countsOrdered By: Lucretia Hunter on 12-17-2023 MCH (RBC) [Entitic mass] 30.4 pg 27.0-32.0 [facility] MCHC (RBC) [Mass/Vol] 33.5 g/dL 32-[address] [facility] Nucleated RBC/100 WBC (Bld) [Ratio] 0 % 0-5 [facility] Platelet mean volume (Bld) [Entitic vol] 9.0 fL 6.2-12.0 [facility] Platelets (Bld) [#/Vol] 241 10*3/uL 150-450 [facility] No Panel InformationOrdered By: Lucretia Hunter on 12-17-2023 MDMA (Ecstasy) Screen Negative < 500 ng/mL [facility] Urine Barbiturates Screen Negative < 200 ng/mL [facility] Urine Drug Screen Comment [facility] Comment on above: CONFIRMATORY TESTING FOR ALL POSITIVE URINE DRUG SCREENRESULTS WILL ONLY BE SENT OUT UPON PHYSICIAN ORDER. VISTA Urine Drug Screen methods provide only preliminaryanalytical test results. A more specific alternate chemicalmethod must be used in order to obtain a confirmedanalytical result. Gas chromatography/mass spectrometery(GC/MS) is the preferred confirmatory method. Clinicalconsideration and professional judgement should be appliedto any drug of abuse test result, particularly whenpreliminary positive results are used. URINE TCA TESTING MUST BE ORDERED SEPARATELY. USE TESTMNEMONIC: [facility] Urine Methadone Screen Negative < 300 ng/mL [facility] Estimated Creatinine Clearance Calc 113.55 ml/min [facility] Estimated GFR (MDRD) Amer 107 mL/min >60 [facility] Comment on above: GFR Calc Estimated GFR (MDRD) Non-Af Amer 89 mL/min >60 [facility] Comment on above: Non- GFR Calc Ethyl Alcohol Level 148.0 mg/dL [facility] Comment on above: The serum:whole bloo d ethanol ratio is approximately 1.14and varies slightly with hematocrit. Medical Alcohol reference interval and critical value innon-tolerant individuals; 50 - 100 Impairment 100 Intoxication 100 - 250 Severe Poisoning 250 - 400 Deep/possible fatal coma RBC Auto (Bld) [#/Vol]Ordere d By: Lucretia Hunter on 12-17-2023 RBC (Bld) [#/Vol] 4.90 10*6/uL 4.6-6.2 [facility] Serum or plasma calcium che urement (mass/volume)Ordered By: Lucretia Hunter on 12-17-2023 Calcium [Mass/Vol] 8.7 mg/dL 8.5-10.1 [facility] Serum or plasma creatinine m easurement (mass/volume)Ordered By: Lucretia Hunter on 12-17-2023 Creatinine [Mass/Vol] 0.94 mg/dL 0.70-1.[address] [facility] Comment on above: The validity of the calculated GFR & GFRAA in patients over 70 years has not been determined. Clinical correlation is essential. Serum or plasma urea nitroge n measurement (mass/volume)Ordered By: Lucretia Hunter on 12-17-2023 Urea nitrogen [Mass/Vol] 13 mg/dL 7-18 [facility] Thin prep Papanicolaou smear with manual screeningOrdered By: Lucretia Hunter on 12-17-2023 Thin prep Papanicolaou smear with manual screening 3.4 g/dL 3.2-5.0 [facility] Thin prep Papanicolaou smear with manual screening 60 U/L 15-37 [facility] Thin prep Papanicolaou smear with manual screening 7 5-15 [facility] Urine phencyclidine (PCP) de tectionOrdered By: Lucretia Hunter on 12-17-2023 Phencyclidine Ql (U) Negative < 25 ng/mL [facility] CBC W Auto Differential pane l (Bld)on 10-01-2023 Basophils (Bld) [#/Vol] 0.14 10*3/uL High <0.11 [facility] Comment on above: Order Comment: Speci men Type: BLOOD SPECIMENOrdering Facility: [facility] Address: [address] [place] [address] Performed By: #### 5 7021-8 ####[facility]ORY[facility] [id number] [address] [place] Basophils/100 WBC (Bld) 1.0 % Normal [facility] Comment on above: Order Comment: Speci men Type: BLOOD SPECIMENOrdering Facility: [facility] Address: [address] [place] [address] Performed By: #### 5 7021-8 ####[facility]ORYCLIA [id number] [address] [place] Differential cell count method Nom (Bld) Auto Normal [facility] Comment on above: Order Comment: Speci men Type: BLOOD SPECIMENOrdering Facility: [facility] Address: [address] [place] [address] Performed By: #### 5 7021-8 ####[facility]ATORYCLIA [id number] [address] [place] Eosinophils (Bld) [#/Vol] 0.25 10*3/uL Normal <0.46 [facility] Comment on above: Order Comment: Speci men Type: BLOOD SPECIMENOrdering Facility: [facility] Address: [address] [place] [address] Performed By: #### 5 7021-8 ####[facility]ORYCLIA [id number] [address] [place] Eosinophils/100 WBC (Bld) 1.9 % Normal [facility] Comment on above: Order Comment: Speci men Type: BLOOD SPECIMENOrdering Facility: [facility] Address: [address] [place] [address] Performed By: #### 5 7021-8 ####[facility]ORYCLIA [id number] [address] [place] Erythrocyte distribution width (RBC) [Ratio] 13.7 % Normal 11.5-15.0 [facility] Comment on above: Order Comment: Speci men Type: BLOOD SPECIMENOrdering Facility: [facility] Address: [address] [place] [address] Performed By: #### 5 7021-8 ####[facility]ORATORYCLIA [id number] [address] [place] Hematocrit (Bld) [Volume fraction] 44.5 % Normal 39.0-51.0 [facility] Comment on above: Order Comment: Speci men Type: BLOOD SPECIMENOrdering Facility: [facility] Address: [address] [place] [address] Performed By: #### 5 7021-8 ####[facility] LABORATORYCLIA [id number] [address] [place] Hemoglobin (Bld) [Mass/Vol] 14.7 g/dL Normal 13.0-17.0 [facility] Comment on above: Order Comment: Speci men Type: BLOOD SPECIMENOrdering Facility: [facility] Address: [address] [place] [address] Performed By: #### 5 7021-8 ####[facility] LABORATORYCLIA [id number] [address] [place] Immature granulocytes (Bld) [#/Vol] 0.06 10*3/uL Normal <0.10 [facility] Comment on above: Order Comment: Speci men Type: BLOOD SPECIMENOrdering Facility: [facility] Address: [address] [place] [address] Performed By: #### 5 7021-8 ####[facility]ORATORYCLIA [id number] [address] [place] Immature granulocytes/100 WBC (Bld) 0.4 % Normal [facility] Comment on above: Order Comment: Speci men Type: BLOOD SPECIMENOrdering Facility: [facility] Address: [address] [place] [address] Performed By: #### 5 7021-8 ####[facility]ORATORYCLIA [id number] [address] [place] Lymphocytes (Bld) [#/Vol] 4.89 10*3/uL High 1.00-4.00 [facility] Comment on above: Order Comment: Speci men Type: BLOOD SPECIMENOrdering Facility: [facility] Address: [address] [place] [address] Performed By: #### 5 7021-8 ####[facility]ORATORYCLIA [id number] [address] [place] Lymphocytes/100 WBC (Bld) 36.4 % Normal [facility] Comment on above: Order Comment: Speci men Type: BLOOD SPECIMENOrdering Facility: [facility] Address: [address] [place] [address] Performed By: #### 5 7021-8 ####[facility] LABORATORYCLIA [id number] [address] [place] MCH (RBC) [Entitic mass] 29.1 pg Normal 26.0-34.0 [facility] Comment on above: Order Comment: Speci men Type: BLOOD SPECIMENOrdering Facility: [facility] Address: [address] [place] [address] Performed By: #### 5 7021-8 ####[facility]ORATORYCLIA [id number] [address] [place] MCHC (RBC) [Mass/Vol] 33.0 g/dL Normal 30.5-36.0 [facility] Comment on above: Order Comment: Speci men Type: BLOOD SPECIMENOrdering Facility: [facility] Address: [address] [place] [address] Performed By: #### 5 7021-8 ####[facility]ORATORYCLIA [id number] [address] MCV (RBC) [Entitic vol] 88.1 fL Normal 80.0-100.0 [facility] Comment on above: Order Comment: Speci men Type: BLOOD SPECIMENOrdering Facility: [facility] Address: [facility] [place] [address] Performed By: #### 5 7021-8 ####[facility]ORYCLIA [id number] [place] [address] [place] Monocytes (Bld) [#/Vol] 1.11 10*3/uL High <0.87 [facility] Comment on above: Order Comment: Speci men Type: BLOOD SPECIMENOrdering Facility: [facility] Address: [address] [place] [address] Performed By: #### 5 7021-8 ####[facility]ORYCLIA [id number] [address] [place] Monocytes/100 WBC (Bld) 8.3 % Normal [facility] Comment on above: Order Comment: Speci men Type: BLOOD SPECIMENOrdering Facility: [facility] Address: [address] [place] [address] Performed By: #### 5 7021-8 ####[facility]ATORYCLIA [id number] [place] [address] [place] Neutrophils (Bld) [#/Vol] 6.99 10*3/uL Normal 1.45-7.50 [facility] Comment on above: Order Comment: Speci men Type: BLOOD SPECIMENOrdering Facility: [facility] Address: [address] [place] [address] Performed By: #### 5 7021-8 ####[facility]ORYCLIA [id number] [address] [place] Neutrophils/100 WBC (Bld) 52.0 % Normal [facility] Comment on above: Order Comment: Speci men Type: BLOOD SPECIMENOrdering Facility: [facility] Address: [address] [place] [address] Performed By: #### 5 7021-8 ####[facility]ORYCLIA [id number] [place] [address] [place] Nucleated RBC (Bld) [#/Vol] 10*3/uL Normal <0.01 [facility] Comment on above: Order Comment: Speci men Type: BLOOD SPECIMENOrdering Facility: [facility] Address: [address] [place] [address] Performed By: #### 5 7021-8 ####[facility]ORATORYCLIA [id number] [address] [place] Nucleated RBC/100 WBC (Bld) [Ratio] 0.0 /100 WBC Normal [facility] Comment on above: Order Comment: Speci men Type: BLOOD SPECIMENOrdering Facility: [facility] Address: [address] [place] [address] Performed By: #### 5 7021-8 ####[facility]ORATORYCLIA [id number] [place] [address] [place] Platelet mean volume (Bld) [Entitic vol] 8.9 fL Low 9.0-12.7 [facility] Comment on above: Order Comment: Speci men Type: BLOOD SPECIMENOrdering Facility: [facility] Address: [address] [place] [address] Performed By: #### 5 7021-8 ####[facility] LABORATORYCLIA [id number] [place] [address] [place] Platelets (Bld) [#/Vol] 295 10*3/uL Normal 150-400 [facility] Comment on above: Order Comment: Speci men Type: BLOOD SPECIMENOrdering Facility: [facility] Address: [address] [place] [address] Performed By: #### 5 7021-8 ####[facility] LABORATORYCLIA [id number] [place] [address] [place] RBC (Bld) [#/Vol] 5.05 10*6/uL Normal 4.20-6.00 [facility] Comment on above: Order Comment: Speci men Type: BLOOD SPECIMENOrdering Facility: [facility] Address: [address] [place] [address] Performed By: #### 5 7021-8 ####[facility]ORATORYCLIA [id number] [place] [address] [place] WBC (Bld) [#/Vol] 13.44 10*3/uL High 3.70-11.00 [facility] Comment on above: Order Comment: Astrid pérez Type: BLOOD SPECIMENOrdering Facility: [facility] Address: [address] [place] [address] Performed By: #### 5 7021-8 ####[facility] LABORATORYCLIA [id number] [address] Comprehensive metabolic 2000 panelon 10-01-2023 Albumin [Mass/Vol] 4.3 g/dL Normal 3.9-4.9 [facility] Comment on above: Order Comment: Astrid pérez Type: BLOOD SPECIMEN Ordering Facility: [facility] Address: [address] [place] [address] Performed By: #### 2 4323-8 #### [facility] CLIA [id number] [address] [place] [address] ALP [Catalytic activity/Vol] 80 U/L Normal 38-113 [facility] Comment on above: Order Comment: Speci men Type: BLOOD SPECIMEN Ordering Facility: [facility] Address: [address] [place] [address] Performed By: #### 2 4323-8 #### [facility] CLIA [id number] [address] [place] [address] ALT With P-5'-P [Catalytic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 [facility] Creatinine [Mass/Vol] 1.17 mg/dL Normal 0.73-1.22 [facility] Comment on above: Order Comment: Speci men Type: BLOOD SPECIMENOrdering Facility: [facility] Address: [address] [place] [address] Performed By: #### 2 4331-, ####[facility] LABORATORYCLIA [id number] [address] Creatinine and Glomerular filtration rate.predicted panel (S/P/Bld) 74 mL/min/1.73m??? Normal >=60 [facility] Comment on above: Order Comment: Speci men Type: BLOOD SPECIMENOrdering Facility: [facility] Address: [address] [place] [address] Result Comment: Miguelina mated Glomerular Filtration Rate (eGFR) is calculated using the 2020 CKD-EPI creatinine equation. This equation utilizes serum creatinine, sex, and age as parameters. The creatinine assay has traceable calibration to isotope dilution-mass spectrometry. Refer to KDIGO guidelines for clinical interpretation. In patients with unstable renal function, e.g. those with acute kidney injury, the eGFR may not accurately reflect actual GFR. Performed By: #### 2 4331-1, 64516-7 ####[facility] LABORATORYCLIA [id number] [address] [place] Glucose [Mass/Vol] 105 mg/dL High 74-99 [facility] Comment on above: Order Comment: Speci men Type: BLOOD SPECIMENOrdering Facility: [facility] Address: [address] [place] [address] Result Comment: The [place] Diabetes Association (ADA) provides guidance for cutoff values for fasting glucose and random glucose. The ADA defines fasting as no caloric intake for at least 8 hours. Fasting plasma glucose results between 100 to 125 mg/dL indicate increased risk for diabetes (prediabetes). Fasting plasma glucose results greater than or equal to 126 mg/dL meet the criteria for diagnosis of diabetes. In the absence of unequivocal hyperglycemia, results should be confirmed by repeat testing. In a patient with classic symptoms of hyperglycemia or hyperglycemic crisis, random plasma glucose results greater than or equal to 200 mg/dL meet the criteria for diagnosis of diabetes. Reference: Standards of Medical Care in Diabetes 2016, [place] Diabetes Association. Diabetes Care. 2016.39(Suppl 1). Performed By: #### 2 4331-1, 63969-1 ####[facility] LABORATORYCLIA [id number] [place] [address] [place] Potassium [Moles/Vol] 4.1 mmol/L Normal 3.7-5.1 [facility] Comment on above: Order Comment: Astrid men Type: BLOOD SPECIMENOrdering Facility: [facility] Address: [address] [place] [address] Performed By: #### 2 4331-, ####[facility] LABORATORYCLIA [id number] [place] [address] [place] Protein [Mass/Vol] 6.4 g/dL Normal 6.3-8.0 [facility] Comment on above: Order Comment: Speci men Type: BLOOD SPECIMENOrdering Facility: [facility] Address: [address] [place] [address] Performed By: #### 2 433-, ####[facility] LABORATORYCLIA [id number] [place] [address] [place] Sodium [Moles/Vol] 136 mmol/L Normal 136-144 [facility] Comment on above: Order Comment: Speci men Type: BLOOD SPECIMENOrdering Facility: [facility] Address: [address] [place] [address] Performed By: #### 2 4331-1, 17354-4 ####[facility] LABORATORYCLIA [id number] [address] Urea nitrogen [Mass/Vol] 7 mg/dL Low 9-24 [facility] Comment on above: Order Comment: Speci men Type: BLOOD SPECIMENOrdering Facility: [facility] Address: [address] [place] [address] Performed By: #### 2 4331-1, 11994-6 ####[facility] LABORATORYCLIA [id number] [address] HbA1c (Bld)on 05-16-2023 Average glucose Estimated from glycated hemoglobin (Bld) [Mass/Vol] 105 mg/dL Normal [facility] Comment on above: Order Comment: Speci men Type: BLOOD SPECIMEN Ordering Facility: [facility] Address: [address] [place] [address] Result Comment: eAG: (Estimated average glucose) is a calculated value from HgbA1c and is self pay representative of the average blood glucose level in the last 2-3 month period. Performed By: #### 5 5454-3 #### [facility] CLIA [id number] [address] [place] [address] HbA1c (Bld) [Mass fraction] 5.3 % Normal 4.3-5.6 [facility] Comment on above: Order Comment: Speci men Type: BLOOD SPECIMEN Ordering Facility: [facility] Address: [address] [place] [address] Result Comment: [place] Diabetes Association guidelines indicate that patients with HgbA1c in the range 5.7-6.4% are at increased risk for development of diabetes, and intervention by lifestyle modification may be beneficial. HgbA1c greater or equal to 6.5% is considered diagnostic of diabetes. Performed By: #### 5 5454-3 #### [facility] CLIA [id number] [address] Lipid 1996 panelon 08-28-202 3 Cholesterol [Mass/Vol] 197 mg/dL Normal <200 [facility] Comment on above: Order Comment: Dianajustin pérez Type: BLOOD SPECIMENOrdering Facility: [facility] Address: [address] [place] [address] Result Comment: <200 mg/dL, Desirable 200-239 mg/dL, Borderline high >239 mg/dL, High Performed By: #### 2 4331-1, 44878-6 ####[facility] LABORATORYCLIA [id number] [address] Cholesterol in HDL [Mass/Vol] 49 mg/dL Normal >39 [facility] Comment on above: Order Comment: Astrid elisa Type: BLOOD SPECIMENOrdering Facility: [facility] Address: [address] [place] [address] Result Comment: 40-5 9 mg/dL, Acceptable >59 mg/dL, High: Negative risk factor for coronary heart disease <40 mg/dL, Low: Positive risk factor for coronary heart disease Performed By: #### 2 4331-1, 69565-1 ####[facility] LABORATORYCLIA [id number] [address] Cholesterol in LDL [Mass/Vol] 121 mg/dL High <100 [facility] Comment on above: Order Comment: Dianajustin pérez Type: BLOOD SPECIMENOrdering Facility: [facility] Address: [address] [place] [address] Result Comment: <100 mg/dL, Optimal 100-129 mg/dL, Near optimal/above optimal 130-159 mg/dL, Borderline high 160-189 mg/dL, High >189 mg/dL, Very high Secondary prevention optimal LDL Cholesterol levels are recommended to be < 70 mg/dL Performed By: #### 2 4331-1, 42124-0 ####[facility] LABORATORYCLIA [id number] [address] [place] Cholesterol in LDL/Cholesterol in HDL [Mass ratio] 2.47 {ratio} Normal <2.54 [facility] Comment on above: Order Comment: Dianai men Type: BLOOD SPECIMENOrdering Facility: [facility] Address: [address] [place] [address] Result Comment: Ольга solorzano: 1. National Cholesterol Education Program ATP III Guideline At-A-Glance Quick Desk Reference: National Heart, Lung, and Blood Fowler. National Institutes of Health. 2001: NIH Publication No. 01-3305. 2. An International Atherosclerosis Society position paper: global recommendations for the management of dyslipidemia: executive summary, Atherosclerosis. 2014: 232(2):410-413. Performed By: #### 2 4331-1, 04883-7 ####[facility] LABORATORYCLIA [id number] [address] [place] Cholesterol in VLDL [Mass/Vol] 27 mg/dL Normal <30 [facility] Comment on above: Order Comment: Speci men Type: BLOOD SPECIMENOrdering Facility: [facility] Address: [address] [place] [address] Performed By: #### 2 4331-1, 42215-5 ####[facility] LABORATORYCLIA [id number] [address] [place] Cholesterol non HDL [Mass/Vol] 148 mg/dL High <130 [facility] Comment on above: Order Comment: Speci men Type: BLOOD SPECIMENOrdering Facility: [facility] Address: [address] [place] [address] Result Comment: <130 mg/dL, Optimal 130-159 mg/dL, Near optimal/above optimal 160-189 mg/dL, Borderline high 190-219 mg/dL, High >219 mg/dL, Very high Secondary prevention optimal non HDL Cholesterol levels are recommended to be <100 mg/dL Performed By: #### 2 4331-1, 26525-3 ####[facility] LABORATORYCLIA [id number] [address] [place] Cholesterol.total/Cho lesterol in HDL [Mass ratio] 4.02 {ratio} Normal <5.10 [facility] Comment on above: Order Comment: Speci men Type: BLOOD SPECIMENOrdering Facility: [facility] Address: [address] [place] [address] Performed By: #### 2 4331-1, 83414-5 ####[facility] LABORATORYCLIA [id number] [address] FASTING TIME 12 hrs Normal [facility] Comment on above: Order Comment: Speci men Type: BLOOD SPECIMENOrdering Facility: [facility] Address: [address] [place] [address] Performed By: #### 2 4331-1, 79885-8 ####[facility] LABORATORYCLIA [id number] [address] Triglyceride [Mass/Vol] 134 mg/dL Normal <150 [facility] Comment on above: Order Comment: Speci men Type: BLOOD SPECIMENOrdering Facility: [facility] Address: [address] [place] [address] Result Comment: <150 mg/dL, Normal 150-199 mg/dL, Borderline high 200-499 mg/dL, High >499 mg/dL, Very high Performed By: #### 2 4331-1, 47253-5 ####[facility]ORATORYCLIA [id number] [address] CNPYashira 02-21-2023 CNPN Telephone ([facility]) -- SLOAN HARVEY ([id number]) 1970 M Date Time Provider Department 02/21/23 DAE MARI [facility] During your visit today, we recorded the following information about you: Regina Figueroa MA 02/21/2023 2:09 PM Signed The referral placed for February 21, 2023 has been submitted via the [facility] Internal Referral Request form on the [facility] Appointment Portal. Confirmation # [id number] KATRIN Perez MA 02/24/2023 12:01 PM Signed [id number] ref 02/21/23 09:05 SLOAN HARVEY 1970 PMOORE2 02/21/23 09:28 to [facility] ENT KATHARINE 02/21/23 09:36 02/22/23 Patient scheduled 07/11/2023 Yolanda ([facility]) Darrius Velasco Scheduled 02/23/23 08:55 Allergies As of Date: 02/21/2023 (Not on File) Date Reviewed: 02/16/2023 Reviewed by: Dae Mari APRN.CNP - Fully Assessed Reason for Visit: Consult [502] Cmt: ENT #[id number] Prescriptions as of 02/24/2023 - DULoxetine (CYMBALTA) 60 mg capsule Take 60 mg by mouth once daily. - hydrOXYzine pamoate (VISTARIL) 25 mg capsule Take 50 mg by mouth three times daily as needed. - ibuprofen (MOTRIN) 600 mg tablet Take 600 mg by mouth three times daily as needed. Problem List As Of Date: 02/21/2023 (None) Encounter Status:Closed by REGINA FIGUEROA on 02/21/23 [facility] CNManny 02-16-2023 CNOV Office Visit ([facility]) -- SLOAN HARVEY ([id number]) 1970 M Date Time Provider Department 02/16/23 3:40 PM DAE MARI [facility] During your visit today, we recorded the following information about you: Pulse Respiration Blood pressure Weight 75/minute 18/minute 133/91 105.7 kg Height 1.778 m Dae Mari APRN.CNP 02/16/2023 4:31 PM Signed [facility] [address] [place] [address] Date of Evaluation: 02/16/2023 Patient Name: Sloan Harevy : 1970 Chief Complaint: Patient presents with: New Patient: Establish care. Bilateral ear wax ( would like to have flushed) Subjective HPI Mr. Harvey is a 53 year old male who presents for: B/L ear lavage. He reports recurrent episodes of impacted cerumen and fullness in his ears. Denies any fever or chills. Or loss of hearing. He also reports intermittent ear drainage happens every 6 months to a years. Last for a day or two and then subsides. He does not assocaite any other symptoms with the drainage. Review of Systems Constitutional: Negative for activity change, appetite change, chills and fever. HENT: Negative for ear pain, hearing loss, sinus pressure, sinus pain, sore throat and trouble swallowing. Ear fullness Eyes: Negative for visual disturbance. Respiratory: Negative for cough, chest tightness, shortness of breath and wheezing. Cardiovascular: Negative for chest pain, palpitations and leg swelling. Gastrointestinal: Negative for abdominal pain, diarrhea, nausea and vomiting. Genitourinary: Negative for dysuria and frequency. Musculoskeletal: Negative for arthralgias and myalgias. Skin: Negative for pallor, rash and wound. Neurological: Negative for dizziness, light-headedness, numbness and headaches. Psychiatric/Behavioral: Negative for behavioral problems, confusion, hallucinations and suicidal ideas. History reviewed. No pertinent past medical history. History reviewed. No pertinent surgical history. History reviewed. No pertinent family history. 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 hydrOXYzine pamoate (VISTARIL) 25 mg capsule Take 50 mg by mouth three times daily as needed. ibuprofen (MOTRIN) 600 mg tablet Take 600 mg by mouth three times daily as needed. No current facility-administered medications for this visit. I have confirmed and edited as necessary the chief complaint, medications, past medical, family and social histories obtained by others. Objective BP 133/91 Pulse 75 Resp 18 Ht 5' 10 (1.78m) Wt 233 lb (105.7kg) SpO2 97% BMI 33.43 kg/(m2). Physical Exam Vitals reviewed. Constitutional: General: He is not in acute distress. Appearance: Normal appearance. He is normal weight. HENT: Head: Normocephalic. Right Ear: There is no impacted cerumen. Left Ear: There is impacted cerumen. Eyes: Extraocular Movements: Extraocular movements intact. Conjunctiva/sclera: Conjunctivae normal. Pupils: Pupils are equal, round, and reactive to light. Cardiovascular: Rate and Rhythm: Normal rate and regular rhythm. Pulses: Normal pulses. Heart sounds: Normal heart sounds. No murmur heard. No friction rub. No gallop. Pulmonary: Effort: Pulmonary effort is normal. Breath sounds: Normal breath sounds. No wheezing, rhonchi or rales. Abdominal: General: Bowel sounds are normal. Palpations: Abdomen is soft. Musculoskeletal: General: Normal range of motion. Cervical back: Normal range of motion. Right lower leg: No edema. Left lower leg: No edema. Lymphadenopathy: Cervical: No cervical adenopathy. Skin: General: Skin is warm and dry. Findings: No lesion or rash. Neurological: General: No focal deficit present. Mental Status: He is alert and oriented to person, place, and time. Mental status is at baseline. Psychiatric: Mood and Affect: Mood normal. Behavior: Behavior normal. ASSESSMENT/PLAN: 1. Impacted cerumen of left ear - ICD9: 380.4, ICD10: H61.22 (primary diagnosis) - Unable to remove cerumen from left ear canal. Advised patient to use OTC debrox for the next week and follow up for an additional ear lavage. 2. Ear drainage, unspecified laterality - ICD9: 388.60, ICD10: H92.10 - Pt reports intermittent ear drainage that is not the color or constancy of cerumen and would like to see ENT. 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 Discussed the above with the patient using shared decision making. The (more content not included)... Normal [facility] XR ANKLE LEFT 3+ VIEWS (ALLEGRA ABDALLA)on 10-09-2021 XR ANKLE LEFT 3+ VIEWS (STANDARD) EXAMINATION: THREE XRAY VIEWS OF THE LEFT ANKLE 10/09/2021 3:02 pm COMPARISON: None. HISTORY: ORDERING SYSTEM PROVIDED HISTORY: L ankle pain; TECHNOLOGIST PROVIDED HISTORY: Injury/Trauma Acuity: Acute Reason for Exam: pain , injury 4 days ago Cancer History: no Surgery, Radiation History: no Type of Encounter: Initial Mechanism of Injury: trauma FINDINGS: No acute fracture dislocation or malalignment. Ankle mortise is normal and symmetrical. Mild soft tissue swelling over the lateral malleolus. Calcaneus and talus appear intact. Incidental fracture of the base of the 5th metatarsal bone. IMPRESSION: No acute fractures or dislocations. Mild soft tissue swelling over the lateral malleolus. Incidental fracture of the base of the 5th metatarsal bone. [employer] Workstation ID: [id number] Dictated by: ELISA BOWMAN on TueOct 09, 2021 4:06:36 PM EST Transcribed by: MYRANDA FERMIN on TueOct 09, 2021 4:09:40 PM EST Finalized by: ELISA BOWMAN on TueOct 09, 2021 4:59:05 PM EST Normal [facility] Comment on above: Order Comment: Injur y/Trauma or Illness?:Injury/Trauma How long have you had these symptoms (acute/chronic)?:Acute Reason for exam?:pain , injury 4 days ago History of cancer?:no Surgeries, chemotherapy, or radiation?:no Type of Exam?:Initial Mechanism of injury?:trauma XR FOOT LEFT 3+ VIEWS (STAND BRAVO)on 10-09-2021 XR FOOT LEFT 3+ VIEWS (STANDARD) EXAMINATION: THREE XRAY VIEWS OF THE LEFT FOOT 10/09/2021 3:02 pm COMPARISON: None. HISTORY: ORDERING SYSTEM PROVIDED HISTORY: L foot pain; TECHNOLOGIST PROVIDED HISTORY: Injury/Trauma Acuity: Acute Reason for Exam: pain Cancer History: no Surgery, Radiation History: no Type of Encounter: Initial Mechanism of Injury: fall FINDINGS: A fracture can be seen at the base of the 5th metatarsal bone. The rest of the metatarsal bones are intact. Tarsal bones as well as calcaneus and talus appear intact. IMPRESSION: Mildly displaced fracture at the base of the 5th metatarsal bone. [employer] Workstation ID: [id number] Dictated by: ELISA BOWMAN on TueOct 09, 2021 4:06:17 PM EST Transcribed by: MYRANDA FERMIN on TueOct 09, 2021 4:10:17 PM EST Finalized by: ELISA BOWMAN on TueOct 09, 2021 4:59:00 PM EST Normal [facility] Comment on above: Order Comment: Injur y/Trauma or Illness?:Injury/Trauma How long have you had these symptoms (acute/chronic)?:Acute Reason for exam?:pain History of cancer?:no Surgeries, chemotherapy, or radiation?:no Type of Exam?:Initial Mechanism of injury?:fall Basic metabolic panel aka Ch em 8on 12-22-2020 Calcium [Mass/Vol] 9.7 mg/dL 8.4 - 10. 4 mg/dL [facility] Chloride [Moles/Vol] 104 mmol/L 96 - 10 9 mmol/L [facility] CO2 [Moles/Vol] 24 mmol/L 22 - 30 mmol/L [facility] Comprehensive metabolic 2000 panel 0.86 mg/dL 0.66 - 1.25 mg/dL [facility] Glucose [Mass/Vol] 100 mg/dL 65 - 100 mg/dL [facility] Potassium [Moles/Vol] 3.6 mmol/L 3.6 - 5.1 mmol/L [facility] Sodium [Moles/Vol] 139 mmol/L 135 - 147 mmol/L [facility] Urea nitrogen [Mass/Vol] 12 mg/dL 8 - 26 mg/dL [facility] CBC WITH DIFFERENTIALon ABSOLUTE BASO 0.1 10 3/uL Normal 0.0-0.1 [facility] Comment on above: Performed By: #### 4 [id number] #### [place] [id number] ABSOLUTE EOSIN 0.2 10 3/uL Normal 0.1-0.3 [facility] Comment on above: Performed By: #### 4 [id number] #### [place] [address] ABSOLUTE LYMPH 1.4 10 3/uL Normal 1.2-3.3 [facility] Comment on above: Performed By: #### 4 [id number] #### [place] [address] ABSOLUTE MONO 0.7 10 3/uL High 0.2-0.6 [facility] Comment on above: Performed By: #### 4 [id number] #### [place] [address] ABSOLUTE NEUT 7.2 10 3/uL High 2.4-6.6 [facility] Comment on above: Performed By: #### 4 [id number] #### [place] [address] Basophils/100 WBC (Bld) 0.5 % Normal [facility] Comment on above: Performed By: #### 4 [id number] #### [place] [address] Eosinophils/100 WBC (Bld) 1.7 % Normal [facility] Comment on above: Performed By: #### 4 [id number] #### [place] [address] Erythrocyte distribution width (RBC) [Ratio] 12.5 % Normal 11.5-14.5 [facility] Comment on above: Performed By: #### 4 [id number] #### [place] [address] Hematocrit (Bld) [Volume fraction] 48.3 % Normal 37.7-51.1 [facility] Comment on above: Performed By: #### 4 [id number] #### [place] [address] Hemoglobin (Bld) [Mass/Vol] 16.4 g/dL Normal 12.8-17.7 [facility] Comment on above: Performed By: #### 4 [id number] #### [place] [address] Lymphocytes/100 WBC (Bld) 14.4 % Normal [facility] Comment on above: Performed By: #### 4 [id number] #### [place] [address] MCH (RBC) [Entitic mass] 32.5 pg Normal 27.0-34.2 [facility] Comment on above: Performed By: #### 4 [id number] #### [place] [address] MCHC (RBC) [Mass/Vol] 34.0 g/dL Normal 31.4-36.2 [facility] Comment on above: Performed By: #### 4 [id number] #### [place] [address] MCV (RBC) [Entitic vol] 95.8 fL Normal 80.6-99.0 [facility] Comment on above: Performed By: #### 4 [id number] #### [place] [address] Monocytes/100 WBC (Bld) 7.0 % Normal [facility] Comment on above: Performed By: #### 4 [id number] #### [place] [address] Neutrophils/100 WBC (Bld) 76.4 % Normal [facility] Comment on above: Performed By: #### 4 [id number] #### [place] [address] PLATELET 248.0 x10 3/uL Normal 150.0-400.0 [facility] Comment on above: Performed By: #### 4 [id number] #### [place] [address] RBC 5.04 x10 6/uL Normal 3.70-5.70 [facility] Comment on above: Performed By: #### 4 [id number] #### [place] [address] WBC 9.5 x10 3/uL Normal 4.3-10.3 [facility] Comment on above: Performed By: #### 4 [id number] #### [place] [address] CBC with Differentialon [facility] [place] 0.7 High [facility] Basophils (Bld) [#/Vol] 0.1 10*3/uL [facility] Basophils/100 WBC (Bld) 0.5 % [facility] Eosinophils (Bld) [#/Vol] 0.2 10*3/uL [facility] Eosinophils/100 WBC (Bld) 1.7 % [facility] Erythrocyte distribution width (RBC) [Ratio] 12.5 % 11.5 - 14.5 % [facility] Hematocrit (Bld) [Volume fraction] 48.3 % 37.7 - 51.1 % [facility] Hemoglobin (Bld) [Mass/Vol] 16.4 g/dL 12.8 - 17.7 g/dL [facility] Interpretation and review of laboratory results Abnormal [facility] Lymphocytes (Bld) [#/Vol] 1.4 10*3/uL [facility] Lymphocytes/100 WBC (Bld) 14.4 % [facility] MCH (RBC) [Entitic mass] 32.5 pg 27 - 34.2 pg [facility] MCHC (RBC) [Mass/Vol] 34.0 g/dL 31.4 - 36.2 g/dl [facility] MCV (RBC) [Entitic vol] 95.8 fL 80.6 - 99 fL [facility] Monocytes/100 WBC (Bld) 7.0 % [facility] Neutrophils (Bld) [#/Vol] 7.2 10*3/uL High [facility] Neutrophils/100 WBC (Bld) 76.4 % [facility] Platelets (Bld) [#/Vol] 248.0 10*3/uL [facility] RBC (Bld) [#/Vol] 5.04 10*6/uL [facility] WBC LM Ql (Sput) 9.5 [facility] CHEM 8on 12-22-2020 Calcium [Mass/Vol] 9.7 mg/dL Normal 8.4-10.4 [facility] IM[facility] Comment on above: Performed By: #### 4 [id number] #### [place] [address] Glucose [Mass/Vol] 100 mg/dL Normal 65-100 [facility] Comment on above: Performed By: #### 4 [id number] #### [place] [id number] Urea nitrogen [Mass/Vol] 12 mg/dL Normal 8-26 [facility] Comment on above: Performed By: #### 4 [id number] #### [place] [address] CO2 [Moles/Vol] 24 mmol/L Normal 22-30 [facility] Comment on above: Performed By: #### 4 [id number] #### [place] [address] Creatinine [Mass/Vol] 0.86 mg/dL Normal 0.66-1.25 [facility] Comment on above: Performed By: #### 4 [id number] #### [place] [address] Chloride [Moles/Vol] 104 mmol/L Normal 96-109 [facility] Comment on above: Performed By: #### 4 [id number] #### [address] [address] Potassium [Moles/Vol] 3.6 mmol/L Normal 3.6-5.1 [facility] Comment on above: Performed By: #### 4 [id number] #### [place] [address] Sodium [Moles/Vol] 139 mmol/L Normal 135-147 [facility] Comment on above: Performed By: #### 4 [id number] #### [place] [id number] COVID MOLECULARon 12-22-2020 SARS-CoV-2 (COVID-19) RNA SHIRLEY+probe Ql (Unsp spec) Negative Normal NEGATIVE [facility] Comment on above: Result Comment: Nega tive results should be treated as presumptive and, if inconsistent with clinical signs and symptoms, test with an alternative FDA authorized molecular PCR assay. Negative results do not preclude SARS-CoV-2 infection and does not rule out co-infections with other pathogens so should not be used as the sole basis for patient management decisions. Negative results should be considered in the context of a patient?s recent exposures, history, and presence of symptoms consistent with COVID-19. This test should not be used on asymptomatic patients. The [place] ID Now COVID-19 EUA has not been FDA cleared or approved. It has been authorized by the FDA under an emergency use authorization for use by authorized laboratories and patient care settings. The test has been authorized only for the detection of nucleic acid from SARS-CoV-2, not for any other viruses or pathogens, and is only authorized for the duration of the declaration that circumstances exist justifying the authorization of emergency use of in vitro diagnostic tests for detection and / or diagnosis of COVID-19, unless the authorization is terminated or revoked sooner. Performed By: #### 3 [id number] #### [place] [address] EKG 12-LEADon 12-22-2020 Stationary ECG Study Test Date: 2020-12-22 Pat Name: SLOAN HARVEY Department: Room: Gender: Male Home Health Attendant: REY : 1970 Requested By: Order Number: Vimal MD: Duy Alejandro Measurements Intervals [place] Rate: 84 P: 52 MT: 115 QRS: 37 QRSD: 88 T: 39 QT: 366 QTc: 434 Interpretive Statements SINUS RHYTHM WITH SHORT MT INTERVAL Electronically Signed On 12-22-2020 14:58:52 EDT by Duy Alejandro [facility] ETHANOL-SERUMon 12-22-2020 ETHANOL-SERUM <10 Normal NOT DETECTED [facility] Comment on above: Performed By: #### 4 [id number] #### [place] [address] Ethanolon 12-22-2020 Ethanol Ql (U) <10 NOT DETECTED mg/dL [facility] GFRon 12-22-2020 GFR >60 Normal [facility] Comment on above: Result Comment: To e stimate the GFR for Americans, multiply the result provided by 1.21. Population mean GFR = 116 ml/min/1.73 sq.m. for ages 18-29 yrs. The MDRD is validated in individuals 18-70 years of age. It is less accurate in patients with extremes of muscle mass, restriction of dietary protein, ingestion of creatine, extra-renal metabolism of creatinine, or treatment with medications that affect renal tubular creatinine secretion. GFR Categories in Chronic Kidney Disease (CKD) Category: GFR(mL/min/1.73m^2) Interpretation: G1* 90 or greater Normal or high G2* 60-89 Mild decrease G3a 45-59 Mild to moderate decrease G3b 30-44 Moderate to severe decrease G4 15-29 Severe decrease G5 14 or less Kidney failure *G1&G2: In the absence of evidence of kidney damage, neither GFR category G1 nor G2 fulfill the criteria for CKD Kidney Int Suppl.2013;3:1-150 Performed By: #### G FR1 #### [place] [address] GLOMERULAR FILTRATION RATEon 12-22-2020 GFR/1.73 sq M.predicted MDRD (S/P/Bld) [Vol rate/Area] mL/min/{1.73_m2} [facility] Comment on above: To estimate the GFR for Americans, multiply the result provided by 1.21. Population mean GFR = 116 ml/min/1.73 sq.m. for ages 18-29 yrs. The MDRD is validated in individuals 18-70 years of age. It is less accurate in patients with extremes of muscle mass, restriction of dietary protein, ingestion of creatine, extra-renal metabolism of creatinine, or treatment with medications that affect renal tubular creatinine secretion. GFR Categories in Chronic Kidney Disease (CKD) Category: GFR(mL/min/1.73m^2) Interpretation: G1* 90 or greater Normal or high G2* 60-89 Mild decrease G3a 45-59 Mild to moderate decrease G3b 30-44 Moderate to severe decrease G4 15-29 Severe decrease G5 14 or less Kidney failure *G1&G2: In the absence of evidence of kidney damage, neither GFR category G1 nor G2 fulfill the criteria for CKD Kidney Int Suppl.2013;3:1-150 Otheron 12-22-2020 [facility] SARS-COV-2 Rapid Molecular T eston 12-22-2020 SARS-COV-2 Rapid Molecular Test Negative NEGATIVE [facility] Comment on above: Negative results jim uld be treated as presumptive and, if inconsistent with clinical signs and symptoms, test with an alternative FDA authorized molecular PCR assay. Negative results do not preclude SARS-CoV-2 infection and does not rule out co-infections with other pathogens so should not be used as the sole basis for patient management decisions. Negative results should be considered in the context of a patient s recent exposures, history, and presence of symptoms consistent with COVID-19. This test should not be used on asymptomatic patients. The [employer] ID Now COVID-19 EUA has not been FDA cleared or approved. It has been authorized by the FDA under an emergency use authorization for use by authorized laboratories and patient care settings. The test has been authorized only for the detection of nucleic acid from SARS-CoV-2, not for any other viruses or pathogens, and is only authorized for the duration of the declaration that circumstances exist justifying the authorization of emergency use of in vitro diagnostic tests for detection and / or diagnosis of COVID-19, unless the authorization is terminated or revoked sooner. [facility] Toxicology screen, urineon 0 12-22-2020 Amphetamines Screen method >1000 ng/mL Ql (U) NOT DETECTED CUTOFF <1000 ng/mL [facility] Barbiturates Screen method >200 ng/mL Ql (U) NOT DETECTED CUTOFF <200 ng/mL [facility] Benzodiazepines Ql (U) NOT DETECTED CUTOFF <200 ng/mL [facility] Benzoylecgonine Screen (U) [Mass/Vol] NOT DETECTED CUTOFF <300 ng/mL [facility] [place] Cannabinoids Screen method >50 ng/mL Ql (U) Positive Abnormal CUTOFF <50 ng/mL [facility] Fentanyl NOT DETECTED CUTOFF 1.0 ng/mL [facility] Interpretation and review of laboratory results Abnormal [facility] Opiates Screen (U) [Mass/Vol] NOT DETECTED CUTOFF <300 ng/mL [facility] Phencyclidine (U) [Mass/Vol] NOT DETECTED CUTOFF <25 ng/mL [facility] Tox Message see below [facility] Comment on above: Notes: 1. SCREENING RESULTS SHOULD BE CONSIDERED PRESUMPTIVE UNLESS THE PRESENCE OF THE ANALYTE HAS BEEN CONFIRMED BY A REFERENCE LAB. 2. ALL DRUG GROUPS ARE ANALYZED ON URINE. [facility] UR DRUG SCREEN-7 PANELon Opiates Ql (U) Not detected Normal CUTOFF <300 [facility] Comment on above: Performed By: #### 4 [id number] #### [place] [address] PCP Not detected Normal CUTOFF <25 [facility] Comment on above: Performed By: #### 4 [id number] #### [place] [address] COCAINE/BE Not detected Normal CUTOFF <300 [facility] Comment on above: Performed By: #### 4 [id number] #### [place] [address] BENZODIAZEPINE Not detected Normal CUTOFF <200 [facility] Comment on above: Performed By: #### 4 [id number] #### [place] [address] MARIJUANA/THC Positive Abnormal CUTOFF <50 [facility] Comment on above: Performed By: #### 4 [id number] #### [place] [address] BARBITURATE Not detected Normal CUTOFF <200 [facility] Comment on above: Performed By: #### 4 [id number] #### [place] [address] AMPHETAMINES/METH Not detected Normal CUTOFF <1000 [facility] Comment on above: Performed By: #### 4 [id number] #### [place] [address] FENTANYL Not detected Normal CUTOFF 1.0 [facility] Comment on above: Performed By: #### 4 [id number] #### [place] [address] TOX MESSAGE see below Normal [facility] Comment on above: Result Comment: Note s: 1. SCREENING RESULTS SHOULD BE CONSIDERED PRESUMPTIVE UNLESS THE PRESENCE OF THE ANALYTE HAS BEEN CONFIRMED BY A REFERENCE LAB. 2. ALL DRUG GROUPS ARE ANALYZED ON URINE. Performed By: #### 4 [id number] #### [place] [address] URINALYSIS W/REFLEXon 2020 Appearance (U) Cloudy Normal [facility] Comment on above: Performed By: #### 4 [id number] #### [place] [address] Bacteria identified Cx Nom (U) NOT INDICATED [facility] Comment on above: Performed By: #### 4 [id number] #### [place] [address] Bilirubin Ql (U) Negative Normal Negative [facility] Comment on above: Performed By: #### 4 [id number] #### [place] [address] Color (U) Candice Normal [facility] Comment on above: Performed By: #### 4 [id number] #### [place] [address] Glucose Ql (U) Negative Normal Negative [facility] Comment on above: Performed By: #### 4 [id number] #### [place] [address] HYALINE CAST 2 /LPF Normal [facility] Comment on above: Performed By: #### 4 [id number] #### [place] [address] Ketones Ql (U) 20 mg/dL Abnormal Negative [facility] Comment on above: Performed By: #### 4 [id number] #### [place] [address] LEUKOESTERASE Negative Normal Negative [facility] Comment on above: Performed By: #### 4 [id number] #### [place] [address] MUCOUS-URINE Many Normal [facility] Comment on above: Performed By: #### 4 [id number] #### [place] [address] Nitrite Ql (U) Negative Normal Negative [facility] Comment on above: Performed By: #### 4 [id number] #### [place] [address] NON-SQUAMOUS EPI 2 /LPF Normal [facility] Comment on above: Performed By: #### 4 [id number] #### [place] [address] OCCULT BLOOD Small Abnormal Negative [facility] Comment on above: Performed By: #### 4 [id number] #### [place] [address] pH (U) 5.0 [pH] Normal [facility] Comment on above: Performed By: #### 4 [id number] #### [place] [address] Protein Ql (U) 100 mg/dL Abnormal Negative [facility] Comment on above: Performed By: #### 4 [id number] #### [place] [phone] RBC LM.HPF (Urine sed) [#/Area] 7 /[HPF] High 0-5 [facility] Comment on above: Performed By: #### 4 [id number] #### [place] [address] Specific gravity (U) [Rel density] 1.027 Normal 1.003-1.029 [facility] Comment on above: Performed By: #### 4 [id number] #### [place] [address] Urobilinogen (U) [Mass/Vol] 2.0 mg/dL Normal <2.0 [facility] Comment on above: Performed By: #### 4 [id number] #### [place] [address] WBC LM.HPF (Urine sed) [#/Area] 3 /[HPF] Normal 0-5 [facility] Comment on above: Performed By: #### 4 [id number] #### [place] [address] URINE SOURCE Voided Normal [facility] Comment on above: Performed By: #### 4 [id number] #### [place] [address] Urinalysis with reflex cultu reon 12-22-2020 Appearance (U) Cloudy [facility] Bacteria identified Aer cx Nom (Unsp spec) NOT INDICATED [facility] Bilirubin Ql (U) Negative Negative [facility] Color (CSF) Candice [facility] Glucose Ql (U) Negative Negative mg/dL [facility] Hemoglobin Ql (U) 7 High [facility] Hyaline casts (Urine sed) [#/Area] 2 /[LPF] /LPF [facility] Interpretation and review of laboratory results Abnormal [facility] Ketones Ql (U) 20 mg/dL Abnormal Negative [facility] Leukoesterase Negative Negative [facility] Mucous-Urine Many /LPF [facility] Nitrite Ql (U) Negative Negative [facility] Non-Squamous EPI 2 /LPF [facility] Occult Bld Small Abnormal Negative [facility] pH (U) 5.0 [pH] [facility] Protein (U) [Mass/Vol] 100 mg/dL Abnormal Negative [facility] Specific gravity (U) [Rel density] 1.027 [facility] Urine Source Voided [facility] Urobilinogen Qn (U) 2.0 mg/dL <2.0 [facility] WBC (U) [#/Vol] 3 /uL [facility] Basic metabolic panelon 12-0 Calcium [Mass/Vol] 9.4 mg/dL 8.4 - 10. 4 mg/dL [facility] Chloride [Moles/Vol] 105 mmol/L 96 - 10 9 mmol/L [facility] CO2 [Moles/Vol] 27 mmol/L 22 - 30 mmol/L [facility] Comprehensive metabolic 2000 panel 0.88 mg/dL 0.66 - 1.25 mg/dL [facility] Glucose [Mass/Vol] 82 mg/dL 65 - 100 mg/dL [facility] Potassium [Moles/Vol] 3.9 mmol/L 3.6 - 5.1 mmol/L [facility] Sodium [Moles/Vol] 140 mmol/L 135 - 147 mmol/L [facility] Urea nitrogen [Mass/Vol] 12 mg/dL 8 - 26 mg/dL [facility] CBC without differentialon 1 10-28-2018 Erythrocyte distribution width (RBC) [Ratio] 12.8 % 11.5 - 14.5 % [facility] Hematocrit (Bld) [Volume fraction] 44.7 % 37.7 - 51.1 % [facility] Hemoglobin (Bld) [Mass/Vol] 14.7 g/dL 12.8 - 17.7 g/dL [facility] MCH (RBC) [Entitic mass] 31.5 pg 27 - 34.2 pg [facility] MCHC (RBC) [Mass/Vol] 32.9 g/dL 31.4 - 36.2 g/dl [facility] MCV (RBC) [Entitic vol] 95.9 fL 80.6 - 99 fL [facility] Platelets (Bld) [#/Vol] 232.0 10*3/uL [facility] RBC (Bld) [#/Vol] 4.66 10*6/uL [facility] WBC LM Ql (Sput) 10.0 [facility] GLOMERULAR FILTRATION RATEon 08-27-2019 GFR/1.73 sq M.predicted MDRD (S/P/Bld) [Vol rate/Area] mL/min/{1.73_m2} [facility] Comment on above: To estimate the GFR for Americans, multiply the result provided by 1.21. Population mean GFR = 93 ml/min/1.73 sq.m. for ages 50-59 yrs Five stages of CKD and GFR for each stage: Stage 1 GFR >=90 Stage 2 GFR 60-89 Stage 3 GFR 30-59 Stage 4 GFR 15-29 Stage 5 GFR <15 Type and Screenon 08-27-2019 ABO and Rh group Nom (Bld) O POS [facility] Blood group antibody screen.cells I+II+III Ql Negative [facility] HEPATITIS VIRAL PANELon 07-21 HAV IgM Qn (S) Nonreactive Nonreactive [facility] HCV Ab Qn (S) Nonreactive Nonreactive [facility] Hep B Core-M AB Nonreactive Nonreactive [facility] Hep B Surf AG Nonreactive Nonreactive [facility] Hepatic function panelon Albumin [Mass/Vol] 4.3 g/dL 3.5 - 5 g/dL Gene [facility] Alk Phos 97 U/L 24 - 126 U/L [facility] ALT [Catalytic activity/Vol] 22 U/L 4 - 50 U/L [facility] AST [Catalytic activity/Vol] 32 U/L 3 - 55 U/L [facility] Bilirubin [Mass/Vol] 0.6 mg/dL 0.2 - 1 .6 mg/dL [facility] Bilirubin.conjugated [Mass/Vol] 0.1 mg/dL 0 - 0.5 mg/dL [facility] Protein [Mass/Vol] 7.7 g/dL 6.3 - 8.2 g/dL [facility] Basic metabolic panel aka Ch em 8on 07-24-2019 Calcium [Mass/Vol] 9.8 mg/dL 8.4 - 10. 4 mg/dL [facility] Chloride [Moles/Vol] 108 mmol/L 96 - 10 9 mmol/L [facility] CO2 [Moles/Vol] 28 mmol/L 22 - 30 mmol/L [facility] Comprehensive metabolic 2000 panel 0.93 mg/dL 0.66 - 1.25 mg/dL [facility] Glucose [Mass/Vol] 101 mg/dL High 65 - 100 mg/dL [facility] Interpretation and review of laboratory results Abnormal [facility] Potassium [Moles/Vol] 4.3 mmol/L 3.6 - 5.1 mmol/L [facility] Sodium [Moles/Vol] 143 mmol/L 135 - 147 mmol/L [facility] Urea nitrogen [Mass/Vol] 10 mg/dL 8 - 26 mg/dL [facility] CBC with Differentialon [facility] [place] 0.6 [facility] Basophils (Bld) [#/Vol] 0.1 10*3/uL [facility] Basophils/100 WBC (Bld) 0.7 % [facility] Eosinophils (Bld) [#/Vol] 0.2 10*3/uL [facility] Eosinophils/100 WBC (Bld) 2.2 % [facility] Erythrocyte distribution width (RBC) [Ratio] 13.0 % 11.5 - 14.5 % [facility] Hematocrit (Bld) [Volume fraction] 47.4 % 37.7 - 51.1 % [facility] Hemoglobin (Bld) [Mass/Vol] 15.5 g/dL 12.8 - 17.7 g/dL [facility] Lymphocytes (Bld) [#/Vol] 1.9 10*3/uL [facility] Lymphocytes/100 WBC (Bld) 20.6 % [facility] MCH (RBC) [Entitic mass] 32.3 pg 27 - 34.2 pg [facility] MCHC (RBC) [Mass/Vol] 32.7 g/dL 31.4 - 36.2 g/dl [facility] MCV (RBC) [Entitic vol] 98.8 fL 80.6 - 99 fL [facility] Monocytes/100 WBC (Bld) 6.5 % [facility] Neutrophils (Bld) [#/Vol] 6.4 10*3/uL [facility] Neutrophils/100 WBC (Bld) 70.0 % [facility] Platelets (Bld) [#/Vol] 208.0 10*3/uL [facility] RBC (Bld) [#/Vol] 4.80 10*6/uL [facility] WBC LM Ql (Sput) 9.1 [facility] EKG 12-LEADon 07-24-2019 Stationary ECG Study Test Date: 2019-07-24 Pat Name: SLOAN HARVEY Department: Room: Gender: Male Home Health Attendant: TR : 1970 Requested By: Order Number: Reading MD: Olayinka Zhuo Measurements Intervals [place] Rate: 92 P: 28 MT: 144 QRS: 8 QRSD: 96 T: 20 QT: 339 QTc: 388 Interpretive Statements SINUS RHYTHM WITH FREQUENT SUPRAVENTRICULAR PREMATURE COMPLEXES Electronically Signed On 07-24-2019 17:52:55 EST by Olayinka Zhou [facility] GLOMERULAR FILTRATION RATEon 07-24-2019 GFR/1.73 sq M.predicted MDRD (S/P/Bld) [Vol rate/Area] mL/min/{1.73_m2} [facility] Comment on above: To estimate the GFR for Americans, multiply the result provided by 1.21. Population mean GFR = 93 ml/min/1.73 sq.m. for ages 50-59 yrs Five stages of CKD and GFR for each stage: Stage 1 GFR >=90 Stage 2 GFR 60-89 Stage 3 GFR 30-59 Stage 4 GFR 15-29 Stage 5 GFR <15 Magnesiumon 07-24-2019 Magnesium [Mass/Vol] 2.2 mg/dL 1.6 - 2 .3 mg/dL [facility] Phosphoruson 07-24-2019 Phosphate [Mass/Vol] 3.9 mg/dL 2.5 - 4 .5 mg/dL [facility] Troponin Ion 07-24-2019 Troponin I.cardiac [Mass/Vol] ng/mL 0 - 0.033 ng/mL [facility] Comment on above: NEGATIVE; No detectable troponin-I. C-reactive protein (Inflamma tory)on 07-05-2019 CRP [Mass/Vol] 12.8 mg/L High 0 - 9.9 mg/L [facility] CBC with Differentialon 06-19 [facility] [place] 0.6 [facility] Basophils (Bld) [#/Vol] 0.1 10*3/uL [facility] Basophils/100 WBC (Bld) 0.7 % [facility] Eosinophils (Bld) [#/Vol] 0.2 10*3/uL [facility] Eosinophils/100 WBC (Bld) 2.5 % [facility] Erythrocyte distribution width (RBC) [Ratio] 12.7 % 11.5 - 14.5 % [facility] Hematocrit (Bld) [Volume fraction] 44.9 % 37.7 - 51.1 % [facility] Hemoglobin (Bld) [Mass/Vol] 15.1 g/dL 12.8 - 17.7 g/dL [facility] Lymphocytes (Bld) [#/Vol] 1.5 10*3/uL [facility] Lymphocytes/100 WBC (Bld) 20.6 % [facility] MCH (RBC) [Entitic mass] 33.0 pg 27 - 34.2 pg [facility] MCHC (RBC) [Mass/Vol] 33.6 g/dL 31.4 - 36.2 g/dl [facility] MCV (RBC) [Entitic vol] 98.2 fL 80.6 - 99 fL [facility] Monocytes/100 WBC (Bld) 8.3 % [facility] Neutrophils (Bld) [#/Vol] 5.1 10*3/uL [facility] Neutrophils/100 WBC (Bld) 67.9 % [facility] Platelets (Bld) [#/Vol] 222.0 10*3/uL [facility] RBC (Bld) [#/Vol] 4.57 10*6/uL [facility] WBC LM Ql (Sput) 7.5 [facility] Comprehensive metabolic pane l aka Metaboon 07-05-2019 Albumin [Mass/Vol] 4.4 g/dL 3.5 - 5 g/dL [facility] Alk Phos 107 U/L 24 - 126 U/L [facility] ALT [Catalytic activity/Vol] 97 U/L High 4 - 50 U/L [facility] AST [Catalytic activity/Vol] 63 U/L High 3 - 55 U/L [facility] Bilirubin [Mass/Vol] 1.0 mg/dL 0.2 - 1 .6 mg/dL [facility] Calcium [Mass/Vol] 9.9 mg/dL 8.4 - 10. 4 mg/dL [facility] Chloride [Moles/Vol] 106 mmol/L 96 - 10 9 mmol/L [facility] CO2 [Moles/Vol] 26 mmol/L 22 - 30 mmol/L [facility] Comprehensive metabolic 2000 panel 0.69 mg/dL 0.66 - 1.25 mg/dL [facility] Glucose [Mass/Vol] 80 mg/dL 65 - 100 mg/dL [facility] Potassium [Moles/Vol] 4.3 mmol/L 3.6 - 5.1 mmol/L [facility] Protein [Mass/Vol] 8.1 g/dL 6.3 - 8.2 g/dL [facility] Sodium [Moles/Vol] 139 mmol/L 135 - 147 mmol/L [facility] Urea nitrogen [Mass/Vol] 7 mg/dL Low 8 - 26 mg/dL [facility] EKG 12-LEADon 07-05-2019 Stationary ECG Study Test Date: 2019-07-05 Pat Name: SLOAN HARVEY Department: Room: Gender: Male Home Health Attendant: JOSE ALEJANDRODAVIDJAMIE : 1970 Requested By: Order Number: Reading MD: Benito Au Measurements Intervals [place] Rate: 58 P: 34 MT: 140 QRS: 33 QRSD: 87 T: 30 QT: 410 QTc: 407 Interpretive Statements SINUS BRADYCARDIA Electronically Signed On 07-05-2019 16:36:46 EDT by Benito Au [facility] Folateon 07-05-2019 Folate [Mass/Vol] 11.3 ng/mL [facility] Comment on above: Folate Reference Ran ge: >2.8 ng/mL . GLOMERULAR FILTRATION RATEon 07-05-2019 GFR/1.73 sq M.predicted MDRD (S/P/Bld) [Vol rate/Area] mL/min/{1.73_m2} [facility] Comment on above: To estimate the GFR for Americans, multiply the result provided by 1.21. Population mean GFR = 93 ml/min/1.73 sq.m. for ages 50-59 yrs Five stages of CKD and GFR for each stage: Stage 1 GFR >=90 Stage 2 GFR 60-89 Stage 3 GFR 30-59 Stage 4 GFR 15-29 Stage 5 GFR <15 Gamma GTon 07-05-2019 Gamma glutamyl transferase [Catalytic activity/Vol] 104 U/L High 15 - 73 U/L [facility] Hemoglobin A1con 07-05-2019 HbA1c (Bld) [Mass fraction] 5.5 % 0 - 6 % [facility] Comment on above: Reference Interval f or %A1c %A1c (NGSP) Interpretation <6.0% Non-Diabetic Range >6.5% Action Suggested . Lipid panelon 07-05-2019 Cholesterol [Mass/Vol] 193 mg/dL 0 - 200 mg/dL [facility] Comment on above: CHOLESTEROL REFERENC E RANGE Desirable <200 mg/dL Borderline 200-239 mg/dL High >240 mg/dL . Cholesterol in HDL [Mass/Vol] 31.9 mg/dL Low 40 - 59.9 mg/dL [facility] Comment on above: Interpretive data fo r HDL Cholesterol states: HDL <40 mg/dL is low and constitutes a coronary disease risk factor. HDL >60 mg/dL is a negative risk factor for coronary heart disease. . Cholesterol in LDL [Mass/Vol] 137 mg/dL High 0 - 100 mg/dL [facility] Comment on above: LDL REFERENCE RANGE Optimal <100 mg/dl Near Optimal 100-129 mg/dL Borderline High 130-159 mg/dL High 160-189 mg/dL Very High >=190 mg/dL . Cholesterol in VLDL [Mass/Vol] 24 mg/dL <42 [facility] Triglyceride [Mass/Vol] 120 mg/dL 0 - 150 mg/dL [facility] Comment on above: TRIGLYCERIDE REFEREN CE RANGE Normal <150 mg/dL Borderline High 150-199 mg/dL High 200-499 mg/dL Very High >=500 mg/dL . Magnesiumon 07-05-2019 Magnesium [Mass/Vol] 2.2 mg/dL 1.6 - 2 .3 mg/dL [facility] Otheron 07-05-2019 Interpretation and review of laboratory results Abnormal [facility] Interpretation and review of laboratory results Abnormal [facility] TSHon 07-05-2019 TSH Qn 1.970 m[IU]/L [facility] Vitamin B12on 07-05-2019 Cobalamin (Vitamin B12) [Mass/Vol] 420 pg/mL 239 - 931 pg/mL [facility] Vitamin D 25 hydroxyon 07-05 25-Hydroxyvitamin D2+25-Hydroxyvitamin D3 [Mass/Vol] 32.4 ng/mL [facility] Comment on above: Reference Range: Deficiency: <20 ng/mL Insufficiency: 21-29 ng/mL Optimal Level: >=30 ng/mL Possible Toxicity: >80 ng/mL - 80 ng/mL is the lowest reported level associated with toxicity in patients without primary hyperthyroidism who have normal renal function. Ethanolon 06-20-2019 Ethanol Ql (U) <10 NOT DETECTED mg/dL [facility] Toxicology screen, urineon 1 Amphetamines Screen method >1000 ng/mL Ql (U) NOT DETECTED CUTOFF <1000 ng/mL [facility] Barbiturates Screen method >200 ng/mL Ql (U) NOT DETECTED CUTOFF <200 ng/mL [facility] Benzodiazepines Ql (U) NOT DETECTED CUTOFF <200 ng/mL [facility] [place] Benzoylecgonine Screen (U) [Mass/Vol] NOT DETECTED CUTOFF <300 ng/mL [facility] Cannabinoids Screen method >50 ng/mL Ql (U) Positive Abnormal CUTOFF <50 ng/mL [facility] Interpretation and review of laboratory results Abnormal [facility] [place] Opiates Screen (U) [Mass/Vol] NOT DETECTED CUTOFF <300 ng/mL [facility] Phencyclidine (U) [Mass/Vol] NOT DETECTED CUTOFF <25 ng/mL [facility] Tox Message see below [facility] Comment on above: Notes: 1. SCREENING RESULTS SHOULD BE CONSIDERED PRESUMPTIVE UNLESS THE PRESENCE OF THE ANALYTE HAS BEEN CONFIRMED BY A REFERENCE LAB. 2. ALL DRUG GROUPS ARE ANALYZED ON URINE. MRI BRAIN WITHOUT CONTRASTon 06-27-2017 MRI BRAIN WITHOUT CONTRAST EXAM: MRI of the brain without IV contrastINDICATION: Patient had a transient ischemic attack 2 weeks ago. Headache has not improved since that time. No history of cancer or recent injury. No prior brain surgery. Expressive aphasia. Diplopia. Acute intractable headache.COMPARISON: NoneTECHNIQUE: Standard multiplanar multisequence MRI of the brain was performed without IV contrast on a 1.5 Lida magnet. Imaging includes sagittal T1, axial diffusion weighted imaging with ADC map, axial T2, axial FLAIR, axial T1, and axial GRE sequences. FINDINGS:The midline structures are within normal limits. No suprasellar mass or Chiari I malformation. No diffusion restriction is demonstrated. The brain parenchyma demonstrates normal signal. No evidence of acute intracranial hemorrhage. No significant mass effect or shift of the midline structures. The ventricles, sulci, and cisterns appear normal. No hydrocephalus or abnormal extra axial fluid.The large intracranial arterial and venous flow-voids are within normal limits on the axial T2-weighted imaging. Mastoid air cells are clear. Remote right medial orbital blowout fracture with herniation of orbital fat. No acute orbital abnormalities are appreciated. Minimal mucosal thickening in the maxillary and ethmoid sinuses.IMPRESSION:1. No evidence of acute intracranial hemorrhage, mass, or acute ischemia.2. Minimal paranasal sinus disease.3. Remote right medial orbital blowout fracture with herniation of orbital fat.Workstation ID:[id number] 14 days ago headache started 15 days ago has not improved since tia Normal [facility] Edwin 06-11-2017 Alanine aminotransferase (ALT) 79 U/L Abnormal [facility] Comment on above: Performed By: #### L AB15, LAB62, [id number], [id number] ####[facility] CLIA [id number] [address], [place] [address] [place]#### LAB46, LAB18 ####[facility] AND [facility] [id number] [address], [place] [id number] [place] [address] AND [id number], [place] [phone] C[place] 06-11-2017 Aspartate aminotransferase (AST) 47 U/L Abnormal [facility] Comment on above: Performed By: #### L AB15, LAB62, [id number], [id number] ####[facility] [id number] [address], [place] [address] [place]#### LAB46, LAB18 ####[facility] [id number] [place] [address] [facility] AND [id number], [place] [phone] BASIC METABOLIC PANELon 05-21 Anion gap 12 mmol/L Normal - [facility] [facility] Comment on above: Performed By: #### L AB15, LAB62, SLC402, DGM979 ####[facility] CLIA [id number] [address], [place] [address] [place]#### LAB46, LAB18 ####[facility] [id number] [place] [address] [place] [facility], [place] [phone] BUN (urea nitrogen) 20 mg/dL Abnormal 7-18 [facility] Comment on above: Performed By: #### L AB15, LAB62, OAU392, KZW951 ####[facility] [id number] [place] [address] [place]#### LAB46, LAB18 ####[facility] [id number] [place] [address] [facility], [place] [phone] Calcium 9.1 mg/dL Normal 8.5-10.1 [facility] Comment on above: Performed By: #### L AB15, LAB62, VMV542, KBV113 ####[facility] [id number] [place] [address] [place]#### LAB46, LAB18 ####[facility] COUNTY[facility] [id number] [place] [address] [place] [facility], [place] [phone] Chloride 110 mmol/L Abnormal 98-107 [facility] Comment on above: Performed By: #### L AB15, LAB62, KME243, QKX387 ####[facility] [id number] [place] [address] [place]#### LAB46, LAB18 ####[facility] [id number] [place] [address] [place] [facility], [place] [phone] CO2 20 mmol/L Abnormal 21-32 [facility] Comment on above: Performed By: #### L AB15, LAB62, HKJ580, WPJ467 ####[facility] CLIA [id number] [place] [address] [place]#### LAB46, LAB18 ####[facility] CLIA [id number] [place] [address] [facility] AND [facility], [place] [phone] Creatinine 1.1 mg/dL Normal 0.60-1.3 [facility] Comment on above: Performed By: #### L AB15, LAB62, LXC555, PHC058 ####[facility] CLIA [id number] [place] [address] [place]#### LAB46, LAB18 ####[facility] [id number] [address] [address], [address] AND [facility], [place] [address] eGFR (black) mL/min/{1.73_m2} Normal >60 [facility] Comment on above: Result Comment: GFR is estimated using creatinine, age, gender, and race. Patient's values should be interpreted as a trend. For additional information: [email or web address] Performed By: #### L AB15, LAB62, UZX097, SIJ974 ####[facility] CLIA [id number] [address] [address], [facility] [place]#### LAB46, LAB18 ####[facility] CLIA [id number] [address] [address], [facility]31 [facility] AND [facility], [place] [address] eGFR (non-black) mL/min/{1.73_m2} Normal >60 [facility] Comment on above: Result Comment: GFR is estimated using creatinine, age, gender, and race. Patient's values should be interpreted as a trend. For additional information: [email or web address] Performed By: #### L AB15, LAB62, QIX431, YYD356 ####[facility] CLIA [id number] [place] [address] [place]#### LAB46, LAB18 ####[facility] CLIA [id number] [place] [address] USA[place] [facility], [place] [phone] Glucose mass conc 86 mg/dL Normal 74-106 [facility] Comment on above: Performed By: #### L AB15, LAB62, YRD172, VZA205 ####[facility] CLIA [id number] [place] [address] [place]#### LAB46, LAB18 ####[facility] [id number] [place] [address] [facility], [phone] Potassium molar conc 3.7 mmol/L Normal 3.5-5.1 [facility] Comment on above: Performed By: #### L AB15, LAB62, XRN750, NMM903 ####[facility] [id number] [place] [address] [place]#### LAB46, LAB18 ####[facility] [id number] [place] [address] [facility], [place] [phone] Sodium 142 mmol/L Normal 136-145 [facility] Comment on above: Performed By: #### L AB15, LAB62, CBY559, XZR975 ####[facility] [id number] [place] [address], [address]#### LAB46, LAB18 ####[facility] [id number] [place] [address], [address] AND [facility] [phone] CKon 06-11-2017 CREATINE KINASE TOTAL 179 U/L Normal 39-308 [facility] Comment on above: Performed By: #### L AB15, LAB62, MQZ483, CDY461 ####[facility] [id number] [place] [address], [address]#### LAB46, LAB18 ####[facility] [id number] [address], [address] [place] [id number] [address] [facility], [phone] CT-ANGIO HEADANDNECK W AND/O R WO CON W/POST IMGon 06-11-2017 CT-ANGIO HEADANDNECK W AND/OR WO CON W/POST IMG PROCEDURE: CT-ANGIO HEAD&NECK W AND/OR WO CON W/POST IMGDATE OF EXAM: 06/11/2017 3:28 PMDEMOGRAPHICS: 47 years old Male INDICATION: Speech changes (or aphasia), new or progressive Contrast utilized and relevant clinical information: History: Speech changes (or aphasia), new or progressive. Number of Series/Images: 20. 100ml OMNIPAQUE 350 mg/mL injection. COMPARISON: CT head earlier todayTECHNIQUE: Helical images were obtained in the axial plane during the rapid administration of intravenous contrast. The exam was timed to best evaluate and opacify the arterial structures. The examination is reviewed at soft tissue and lung windows. 2D and 3D MIP and MPR reconstructions are performed of the target arterial structures on an independent workstation.CT radiation dose optimization techniques (automated exposure control, and use of iterative reconstruction techniques, or adjustment of the mA and/or kV according to patient size) were used to limit patient radiation dose.Measurements and estimates of internal carotid artery stenosis are based on the NASCET criteria.Limitations: None.FINDINGS:Brain: No significant abnormalities in the arterial phase.Soft Tissues/Bones: No significant soft tissue findings in the neck or upper chest.Upper Chest: Unremarkable.Aortic Arch: No evidence of significant stenosis or dissection. Right Cervical Carotid: No evidence of significant stenosis, dissection, or occlusion. Left Cervical Carotid: No evidence of significant stenosis, dissection, or occlusion. Vertebrals: No evidence of significant stenosis, dissection, or occlusion. Intracranial Vasculature: No evidence of aneurysm, vascular malformation, or major branch occlusion. No acute arterial abnormality identified.Electronically Signed by: Dinesh Solis MD, 06/11/2017 6:38 PM [facility] CT-HYPERACUTE HEAD W/O CON S TROCLIFFORDon 06-11-2017 CT-HYPERACUTE HEAD W/O CON STROKE CT-HYPERACUTE HEAD W/O CON STROKEDate of service: 06/11/2017 2:14 PMReason for study: Ataxia, stroke suspected as etiology. Number of Series/Images: 3. Comparison: None.Technique: Multiple axial images were obtained through the head in 5 mm slices without contrast. CT radiation dose optimization techniques (automated exposure control, and use of iterative reconstruction techniques, or adjustment of the mA and/or kV according to patient size) were used to limit patient radiation dose. FINDINGS: There is no soft tissue swelling. There is a mild amount of mucosal thickening in the bilateral ethmoid air cells and right maxillary sinus. The remainder of the paranasal sinuses and mastoid air cells are well aerated.No intra-axial or extra-axial fluid collections or masses are identified. There is no mass effect or midline shift. There is no acute major vascular territory infarct, intracranial hemorrhage, or mass. The structures in the posterior fossa are grossly unremarkable. There is no evidence of hydrocephalus.1. No acute major vascular territory infarct, intracranial hemorrhage, or mass. If there is high clinical suspicion for acute ischemia, further evaluation with an MRI of the brain would be recommended.2. Mild chronic ethmoid and right maxillary sinus disease.These findings were called to Dr. Horne at 1423 hours on 06/11/2017.Electronically Signed by: Connor Flores DO, 06/11/2017 2:25 PM [facility] Consultson 06-11-2017 Consults Encounter Department : [facility] EMERGENCY DEPARTMENTConsults by Sandie Flores DO at 06/11/2017 3:32 PMAuthor: Chaka Osoriorvice: NeurologyAuthor Type: PhysicianFiled: 06/11/2017 3:52 PMDate of Service: 06/11/2017 3:32 PMStatus: AddendumEditor: Sandie Flores DO (Physician)Related Notes:Original Note by Sandie Flores DO (Physician) filed at 06/11/2017 3:48 PMNeurological Services Consult NoteNOLAND HOSPITAL DOTHANPatient Name:Sloan Harvey : 1970Subjective:CC:47 y.o. -handed male [facility]. Called back and spoke with the ER about the case twice. Reviewed therecords from [facility] everywhere no matching patients in [facility] or [facility].He is not on any aspirin or Plavix. Nor was he on a statin.History is that around 1130 this morning patient noticed difficulty speaking.A 1225 he had some double vision. He had difficulty finding his words at 1220.He was asked numerous times there is no history of atrial fibrillation in him.There was a 5-10 minute delay in removing in my computer wanted me to update the rena.Patient was seen remotely. Usp during the examination patient's friend Collin came into the room.At the end of the examination we reviewed his history. He had been off of Lipitor since 2003. Discussed with him his lab results from 2011.He reports he has a history of SVT he can get up to 240 beats in the cardiology recommend anablation a while ago but he did not want it.History of spinal fusion surgeryNo history of GI bleeds no history of closed head injury. He did have a history of bleeding in hisear at one point time.No history of atrial fibrillation or seizurePast Medical History:DiagnosisDate -Back pain, chronic -[id number] -SVT (supraventricular tachycardia)hx of being offered ablaton and not wanting it :Past Surgical History:ProcedureLateralit yDate -SPINAL FUSIONMedications:Schedule d Meds: -sodium chloride 0.9 % bolusIntravenousONCE -alteplaseContinuous Infusions:PRN Meds:.Not on FileSocial HistorySocial History -Marital status:SingleSpouse name:N/A -Number of children:N/A -Years of education:N/AOccupational History -Not on file.Social History Main Topics -Smoking status:Current Every Day Smoker -Smokeless tobacco:Never Used -Alcohol useYes -Drug use:YesSpecial:Marijuana -Sexual activity:Not on fileOther TopicsConcern -Not on 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 HistoryProblemRelationAge of Onset -StrokeMaternal Grandmother -StrokePaternal GrandmotherHe reported no significant health issues in his parents.Review of Symptoms:No symptoms of SVT presentlyPhysical Exam:BP: 130/85 (06/11 1517)Temp: 98.8 ?F (37.1 ?C) (06/11 1412)Heart Rate: 91 (06/11 1517)Resp: 14 (06/11 1517)SpO2: 94 % (06/11 1412)FiO2 (%): --O2 Flow Rate (L/min): --Cardiac (WDL): Within Defined Limits (06/11 143)Cardiac Rhythm: --Gen: AANDO x 4, NAD, cooperativePsych: Appeared plight.Skin: no rashes or lesionsNEUROLOGIC EXAM:Mental Status: He was alert he appeared oriented he was able to follow all commands.He copiously wrote out the answer to questions. Written expression was quick and fast. No errorswere noted nursing personnel did not notice spelling errors or paraphasic errors he wrote veryquickly and rapidlyHe had good automatic speech good, hello., F..Frandy was able to follow commands.he follow the conversation very well.He was eventually able to get out May.Cranial Nerve Exam:CN II-XII intact: PERRL, VFF, no nystagmus, no gaze paresis, sensation V1-V3 intact b/l, musclesof facial expression symmetric; hearing intact to conversational tone, palate elevatessymmetrically, shoulder elevation symmetric and tongue protrudes midlineVisual mccray appeared fullMotor Exam:Strength good antigravity ?4 was noted no pronator drift was notedTone and bulk normalNo pronator driftDeep Tendon Reflexes: Unable to be performed telemedicine consultSensation: Pinprick decreased left face as compared to the right// equal both armsCoordination/Cerebellu m: Tremors--none Rapidly alternating movements: no dysdiadochokinesia b/l Fjps-ai-Qyrs: no dysmetria b/l Sioeum-je-Jksa: no dysmetria b/lGait and stance: Gait: deferredLABS:Recent Labs 06/11/17 1415 06/11/17 1447NA 142 --K 3.7 --CL 110* --CO2 20* --BUN 20* --CREATININE 1.1 --INR -- 1.0PTT -- 30.2Results for orders placed or performed in visit on 09/05/12TSHResultValueRef RangeTSH1.5800.358 - 3.740 uIU/mL,IMAGING:CT the head was reviewed personally. Nonacute radiology report nonacuteASSESSMENT/PLAN:1. Patient presenting to the emergency room with strokelike symptoms. Telemedicineneuro consultdid occur. Risks benefits purpose of TPA were discussed. Given patient's low NIH stroke score itwas decided to hold on TPA. Patient has a good ability to express himself recently. His abilityto understand and comprehend is good. Patient has a difficulty expressing himself verbally forspeech that is not automatic as well as a sensory deficit left face.Patient has good strength of both arms both legs good facial symmetry tongue protrusion was midlinevisual mccray are full coordination was goodPatient was examined twice during the telemedicine consultWe will pursue a CTA.We will currently pursue a Plavix load.Will start him on a statin-> he has been off cholesterol medication for some time.We spoke about the importance of him not smoking.We will check hemoglobin A1c lipid panel AST ALT CPKWe will order routine MRI and echocardiogramGiven history of SVT and presenting to the hospital strokelike symptoms believe that a cardiologyconsult would be warranted.Thank you for allowing us to participate in the care of your patient. If there are any questionsregarding evaluation please feel free to contact us.Sandie Flores DO, 06/11/2017 3:32 PM Normal [facility] DRUGS OF ABUSE URINEon 06-11 AMPHETAMINE METAB Negative Normal Negative [facility] Comment on above: Result Comment: Nega tive Performed By: #### L [id number] ####[facility] CLIA [id number] [place], [address] AND [facility] [address] BARBITURATES Negative Normal Negative [facility] Comment on above: Result Comment: Nega tive Performed By: #### L [id number] ####[facility] CLIA [id number] [place] [address], [address] AND [place] [id number] [address] [address] CANNABINOID METAB Negative Normal Negative [facility] Comment on above: Result Comment: Nega tive Performed By: #### L [id number] ####[facility] [id number] [place] [address], [address] AND [place] [id number] [address] [address] DRUGS OF ABUSE URINE Normal [facility] Comment on above: Result Comment: Caryn amaya includes: Amphetamines, Barbiturates, Benzodiazepines, Cocaine, Opiates, THCDrug Screen Cut-off values:Amphetamines 300 ng/mlBenzodiazepines 200 ng/mlBarbiturates 200 ng/mlCocaine metabolite 300 ng/mlCannabinoids 50 ng/mlOpiates 300 ng/ml* Results are unconfirmed screening results and should only be used for medical purposes. Performed By: #### L [id number] ####[facility] CLIA [id number] [place], [address] [place] [id number], [place] [address] OPIATE METAB Negative Normal Negative [facility] Comment on above: Result Comment: Nega tive Performed By: #### L [id number] ####[facility] [id number] [place], [address] AND [facility], [phone] Urine, benzodiazepines presence Negative Normal Negative [facility] Comment on above: Result Comment: Nega tive Performed By: #### L [id number] ####[facility] CLIA [id number] [place], [address] AND [facility], [address] Urine, cocaine presence Negative Normal Negative [facility] Comment on above: Result Comment: Nega tive Performed By: #### L [id number] ####[facility] [id number] [place], [address] AND [facility], [place] [address] ED Provider Noteson 06-11-20 17 ED Provider Notes Encounter Department : [facility] EMERGENCY DEPARTMENTED Provider Notes by Neela Horne MD at 06/11/2017 2:18 PMAuthor: VALENTE Mackervice: Emergency MedicineAuthor Type: ED PhysicianFiled: 06/13/2017 11:09 AMDate of Service: 06/11/2017 2:18 PMStatus: SignedEditor: Neela Horne MD (ED Physician)CHIEF COMPLAINTChief ComplaintPatient presents with -Aphasia -Stroke AlertHPYady Harvey is a 47 y.o. male who presents to room 13 with port of a aphasia and possibleleft-sided weakness.EMS provides much of the history as the patient is only saying I tries to speak.EMS reports that he drove up to their station and stumbled in insisting on being able to write.They reported that he wrote that he was driving had some double vision and then started have ahaving trouble speaking so he drove in for help. No further history initially is obtained.EMS felt that he had some left-sided weakness. Since seen at bedside on the way to the CT scanneras for possible stroke. Cranial nerves grossly looked intact, leg strength was normal, left armseems somewhat weak but upon further history after return from the CT, and the patient writing on aboard he notes that he has an elbow problem which makes it painful for him to raise the left eder he is not feeling weak in the left arm.REVIEW OF SYSTEMSConstitutional SymptomsNo generalized weakness, fever, chills, appetite change, weight changeEyesNo blurry visionEars, Nose, Mouth, ThroatNo ear pain, rhinorrhea, sore throatCardiovascularNo chest pain, shortness of breath, palpitationRespiratoryNo cough, sputumGastrointestinalNo nausea, vomiting, diarrhea, constipation, abdominal painGenitourinaryNo dysuria, urinary incontinenceMusculoskeleta lNo joint pain, back painPsychologicalNo depression, anxietyEndocrineNo cold/hot intoleranceHematologic / LymphaticNo bleeding, bruisingAllergic / ImmunologicNo sneezing, watery eyesPAST MEDICAL HISTORYPast Medical History:DiagnosisDate -Back pain, chronic -Dxziksasotvslw1887 -SVT (supraventricular tachycardia)hx of being offered ablaton and not wanting itFAMILY HISTORYFamily HistoryProblemRelationAge of Onset -StrokeMaternal Grandmother -StrokePaternal GrandmotherSOCIAL HISTORYSocial HistorySocial History -Marital status:SingleSpouse name:N/A -Number of children:N/A -Years of education:N/ASocial History Main Topics -Smoking status:Current Every Day Smoker -Smokeless tobacco:Never Used -Alcohol useYes -Drug use:YesSpecial:Marijuana -Sexual activity:Not AskedOther TopicsConcern -NoneSocial History 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 Is not getting full sentences out.HENT: Normocephalic, Atraumatic, Bilateral external ears normal, Oropharynx moist, No pharyngealexudates,Eyes: PERRL, EOMI, Conjunctiva normal, No discharge.Neck:Normal range of motion, No tenderness, Supple, No stridor.Cardiovascular: Regular rate and rhythm, normal S1/S2. No murmurs, No rubs, No gallopsPulmonary/Chest: Normal breath sounds, No respiratory distress, No wheezing, crackles or rhonchi.No chest tenderness on palpation.Abdomen: Normoactive Bowel sounds, Soft, No tenderness, No masses, No pulsatile masses. No reboundor rigidity.Extremities: Normal range of motion, distal pulses 2+ and equal, No edema, No tendernessNeurologic: Alert AND oriented, no pronator drift, able to hold his arms up for 10 seconds, bothlegs up for 5 seconds. Normal strength, cranial nerves II through XII are intact. Endorses leftfacial paresthesias, extraocular muscles are intact,Skin: Warm, Dry, No erythema, No rashPsychiatric: Anxious, makes many sudden movements as those agitatedEKGEKG interpreted by Neela Stahl for orders placed or performed during the hospital encounter of 06/11/17EKG Standard 12 leadResultValueRef RangeRR BJTHGKAX889jrDC Wenoepfu819rhZSMU Ivfyrziw11okUV Oqvcqkmh100toXPi Qbihcvlz486egOrjmi Iadk50cgR Aabn60pmhJUL Vrso40hyoA Wave Ahng80zgfV:40 Vlvn52iupO:40 Incl33wgtVV Sonz404vdaFIBIXQUphnq rhythmREPORTProbable left atrial enlargementInterpreting PhysStudy Date/[id number] 14:20:21RADIOLOGY/PROCEDUR ES/LABS/MEDICATIONS ADMINISTERED:CT-ANGIO HEAD AND NECK W AND/OR WO CON W/POSFinal ResultNo acute arterial abnormality identified.Electronically Signed by: Dinesh Solis MD, 06/11/2017 6:38 PMCT-Hyperacute Head WO Con StrokeFinal Result1. No acute major vascular territory infarct, intracranial hemorrhage, or mass. If there is highclinical suspicion for acute ischemia, further evaluation with an MRI of the brain would berecommended.2. Mild chronic ethmoid and right maxillary sinus disease.These findings were called to Dr. Horne at 1423 hours on 06/11/2017.Electronically Signed by: Connor Flores DO, 06/11/2017 2:25 PMLabs ReviewedLACTATE/LACTIC ACID - Abnormal; Notable for the following: ResultValueRef RangeStatusLactic Acid3.7 (*)0.4 - 2.0 mmol/LFinalAll other components within normal limitsBASIC METABOLIC PANEL - Abnormal; Notable for the following:Shtjkntw653 (*)98 - 107 mmol/JFepmjXG898 (*)21 - 32 mmol/TOoqueWVI89 (*)7 - 18 mg/dLFinalAll other components within normal limitsSERUM TOX SCREEN - Abnormal; Notable for the following:Acetaminophen Level<2 (*)10 - 30 ug/[id number] (*)<=3 mg/dLFinalAll other components within normal limitsNarrative:Salicylate Therapeutic Range: 20-25 mg/dLAcetaminophen Therapeutic Range:10.00-30.00 ug/mLETHANOL - Abnormal; Notable for the following:[id number] (*)<=3 mg/dLFinalAll other components within normal limitsNarrative:Results of this test should always be interpreted in conjunction with the patient's medicalhistory, clinical presentation and other findings.The pharmacological response to blood alcohol levels may vary from individual to individual. Thefatal concentration has been reported to be greater than 400 mg/dL.LACTATE/LACTIC ACID - Abnormal; Notable for the following:Lactic Acid2.1 (*)0.4 - 2.0 mmol/LFinalAll other components within normal limitsLIPID PANEL - Abnormal; Notable for the following:Idhatrfcvtz577 (*)<=200 mg/dLFinalLDL Dyvnxhymuzg497 (*)0 - 99 mg/dLFinalAll other components within normal limitsNarrative:ATP III Classification of LDL, Total and HDL Cholesterol (mg/dL)LDL Cholesterol: <100 Optimal 100-129 Near optimal/above optimal 130-159 Borderline high 160-189 High >=190 Very highTotal Cholesterol: <200 Desirable 200-239 Borderline high >=240 HighHDL Cholesterol: <40 Low >=60 HighAST - Abnormal; Notable for the following:AST47 (*)15 - 37 U/LFinalAll other components within normal limitsALT - Abnormal; Notable for the following:ALT79 (*)12 - 78 U/LFinalAll other components within normal limitsPROTIME-INR - NormalNarrative:Condition and INR Therapeutic Range:Deep venous thrombosis 2.0-3.0Pulmonary embolism 2.0-3.0Acute myocardial infarction 2.0-3.0Atrial fibrillation 2.0-3.0Antiphospholipid syndrome (no other risk factors) 2.0-3.0Antiphospholipid syndrome with recurrent thromboembolism 2.5-3.0Bioprosthetic (tissue) valve 2.0-3.0Mechanical prosthetic valves 2.0-3.0 or 2.5-3.5 depending on valve type and locationPARTIAL THROMBOPLAST - NormalDRUGS OF ABUSE URINE - NormalNarrative:Drug Screen Cut-off values:Amphetamines 300 ng/mlBenzodiazepines 200 ng/mlBarbiturates 200 ng/mlCocaine metabolite 300 ng/mlCannabinoids 50 ng/mlOpiates 300 ng/ml* Results are unconfirmed screening results and should only be used for medical purposes.HEMOGLOBIN A1C - NormalNarrative:Therapeuti c goals for glycemic control:-Goal of therapy :< 7.0% HgR9v-Amtrag suggested: >8.0% SuG1sAU - NormalGLUCOSE POC RESULTS - NormalNarrative:Point of care test performed at bedside.CBC W/DIFFPOC GLUCOSE, BLOOD BY GLUCOSE MONITORING DEVICE (ACCUCHECK)EXTRA TUBE-BLUEEXTRA TUBE-SSTEXTRA TUBE-PSTEXTRA TUBE-REDEXTRA TUBE-PURPLEMedications0.9 % sodium chloride 1,000 mL bolus ( Intravenous Stopped/Completed 06/11/17 1558)clopidogrel (PLAVIX) tablet 300 mg (300 mg Oral Given 06/11/17 1623)iohexol (OMNIPAQUE) 350 mg iodine/mL injection 100 mL (100 mLs Intravenous Given 06/11/17 162)CT-HYPERACUTE HEAD W/O CON STROKECT-ANGIO HEADANDNECK W AND/OR WO CON W/POST IMGACTIVATE STROKE ALERT TEAMNPO COMMUNICATIONNURSING COMMUNICATIONNIH STROKE SCALEED CONTACT ORDERHOSPITALIZECOURSE AND MEDICAL DECISION MAKINGPertinent Labs AND Imaging studies reviewed. (See chart for details)47-year-old gentleman arriving to the emergency department via EMS with verbal aphasia but able towrite rather clearly on a dry erase board. No motor deficits, states paresthesias on the left sideof his face. Stroke alert was initiated. Stroke team evaluated the patient felt TPA was notwarranted, please see their notes for details. During his emergency department stay, the patientbecame able to speak.A CTA was ordered as well as further workup by the neurology team. We plan to hospitalize thepatient for further TIA workup however the patient declined stating that he did not want to sleepin the hospital. It is somewhat emphatic in his responses. He noted understanding that he mayhave a worsening of symptoms including full stroke and that he may become disabled or withoutfurther management. See below for AMA discussion.I did discuss with the patient should he have any worsening of symptoms to please return forfurther care. -I have advised the patient that admission is necessary for proper care of their medicalcondition. The patient was advised of the reasons for my recommendation. Also advised that eventhough I do not feel that it is safe to go against my recommendation, should the patient have achange of heart and return at any time, we will gladly have them back and continue on with what wefeel is the best medical care for them. -Since the patient has refused to stay, I have offered the following care as the next bestalternative:[X]Oriente d to person, place, time[X]Appropriate answers[x]No slurred speech[x]No sign of psychosis[x]No hallucinations or delusional thinking[x]No suicidal ideation[x]No homicidal ideation[x]Rationale for refusal of care ?does not want to sleep in the hospital[x]Able to verbalize and understand the risks of refusalThe patient was advised that their decision could potentially lead to:[x][x]Permanent disability/consequences[x] Mental impairment[x]Loss of current lifestyle[x]Sepsis or worsening of infection[x]Loss of limb[x]Delay in surgical intervention[N/A]Miscarria ge/ demise[x]Delay in diagnosisDespite discussion of risks and benefits of hospitalization, the patient choose to leave [facility].Diagnosis and treatment plan were discussed in detail with the patient and all present familymembers. They were given the opportunity to ask questions and agree with this plan of treatmentand follow-up as described above. Patient was informed to return to the emergency department atany time for any new or worsening concerns.NEW PRESCRIPTIONSDischarge Medication List as of 06/11/2017 6:03 PMFINAL IMPRESSION1.Expressive aphasia2.Vision changes3.Acute alcoholic intoxication, uncomplicated (HCC)Patient gave me permission to discuss medical history, care, and plan with those present in [facility].I have personally seen and examined this patient. I have fully participated in the care of thispatient and I have reviewed and agree with all pertinent clinical information including history,physical exam, and plan. I have also reviewed and agree with the medications, allergies and pastmedical history section for this patient. I personally reviewed the labs and images obtained duringthis visit.Electronicallysigned by: Neela Horne M.D., 06/13/2017 11:06 Helen Horne MD06/13/17 1109 Normal [facility] EKG STANDARD 12 LEADon 06-11 Pulse (Heart Rate) RR Interval= 659 msP R Interval= 133 msQRSD Interval= 87 msQT Interval= 342 msQTc Interval= 421 msHeart Rate= 91 msP Boston= 27 degQRS Boston= 24 degT Wave Boston= 34 degI: 40 Boston= 49 degT: 40 Boston= 21 degST Boston= 165 degSinus rhythm Probable left atrial enlargement Electronically Signed by: Justin Turner (DO) 14-Jun-2017 06:15:10 Date and Time of Study: 2017-06-11 14:20:21 Normal [facility] ETHANOLon 06-11-2017 Ethanol 248 mg/dL Abnormal <=3 [facility] Comment on above: Performed By: #### L AB15, LAB62, [id number], [id number] ####[facility] [id number] [address]#### LAB46, LAB18 ####[facility] [id number] [address], [address] AND [facility], [place] [address] Ethanol Normal [facility] Comment on above: Result Comment: Resu lts of this test should always be interpreted in conjunction with the patient's medical history, clinical presentation and other findings.The pharmacological response to blood alcohol levels may vary from individual to individual. The fatal concentration has been reported to be greater than 400 mg/dL. Performed By: #### L AB15, LAB62, [id number], [id number] ####[facility] [id number] [address], [address]#### LAB46, LAB18 ####[facility] [id number] [address], [address] AND [facility]avercrePat[place] [address] HEMOGLOBIN A1Con 06-11-2017 Glucose mass conc 103 mg/dL Normal 68-126 [facility] Comment on above: Performed By: #### L AB90 ####[facility] [id number] [address] [address], [address] AND [facility]avercrePat[place] [address] Hemoglobin A1c/Hemoglobin.total mass fraction (Bld) [facility] Comment on above: Result Comment: Ther apeutic goals for glycemic control:-Goal of therapy :< 7.0% AcI5o-Zjtlng suggested: >8.0% HbA1c Performed By: #### L AB90 ####[facility] [id number] [address], [address] AND [facility], [place] [address] Hemoglobin A1c/Hemoglobin.total mass fraction (Bld) 5.2 % Normal 4.0-6.0 [facility] Comment on above: Performed By: #### L AB90 ####[facility] [id number] [address], [facility]31 [facility] AND [phone] LACTATE/LACTIC ACIDon 2016 Lactate 2.1 mmol/L Abnormal 0.4-2.0 [facility] Comment on above: Result Comment: This result has been reviewed. Performed By: #### L [id number] ####[facility] [id number] [address] [address], [facility]31 [facility] AND [facility]erv[address]Be[address] LACTATE/LACTIC ACID Normal [facility] Comment on above: Result Comment: Put on ice - Place specimen on ice immediately after collection and transport to lab.Put on ice - Place specimen on ice immediately after collection and transport to lab. Performed By: #### L [id number] ####[facility] [id number] [place] [address], [facility]31 [facility] AND [facility]averJess[place] [phone] Lactate 3.7 mmol/L Abnormal 0.4-2.0 [facility] Comment on above: Performed By: #### L [id number] ####[facility] [id number] [address] [address], [facility]31 [facility] AND [facility], [place] [phone] LACTATE/LACTIC ACID Normal [facility] Comment on above: Result Comment: Put on ice - Place specimen on ice immediately after collection and transport to lab. Performed By: #### L [id number] ####[facility] CLIA [id number] [place] [address], [facility]31 [facility] AND [facility], [place] [phone] LIPID PANELon 06-11-2017 Cholesterol 59 mg/dL Normal 40-60 [facility] Comment on above: Performed By: #### L AB15, LAB62, QBU236, [id number] ####[facility] CLIA [id number] [place] [address] [place]#### LAB46, LAB18 ####[facility] CLIA [id number] [place] [address] [facility] AND [facility], [phone] Cholesterol 268 mg/dL Abnormal <=200 [facility] Comment on above: Performed By: #### L AB15, LAB62, MGT892, [id number] ####[facility] CLIA [id number] [place] [address] [place]#### LAB46, LAB18 ####[facility] CLIA [id number] [place] [address] [facility] AND [facility], [phone] LDL Cholesterol 181 mg/dL Abnormal 0-99 [facility] Comment on above: Performed By: #### L AB15, LAB62, VPV197, RMV588 ####[facility] CLIA [id number] [place] [address] [place]#### LAB46, LAB18 ####[facility] [id number] [place] [address] [facility] AND [facility], [place] [phone] LIPID PANEL Normal [facility] Comment on above: Result Comment: ATP III Classification of LDL, Total and HDL Cholesterol (mg/dL)LDL Cholesterol: <100 Optimal 100-129 Near optimal/above optimal 130-159 Borderline high 160-189 High >=190 Very highTotal Cholesterol: <200 Desirable 200-239 Borderline high >=240 HighHDL Cholesterol: <40 Low >=60 High Performed By: #### L AB15, LAB62, IBS146, LKZ112 ####[facility] [id number] [place] [address] [place]#### LAB46, LAB18 ####[facility] CLIA [id number] [place] [address] [facility] AND [facility], [place] [phone] Triglyceride 139 mg/dL Normal 0-149 [facility] Comment on above: Performed By: #### L AB15, LAB62, WWG024, [id number] ####[facility] CLIA [id number] [place] [address] [place]#### LAB46, LAB18 ####[facility] CLIA [id number] [place] [address] [facility] AND [facility], [place] [phone] VLDL CHOLESTEROL 28 mg/dL Normal 0-40 [facility] Comment on above: Performed By: #### L AB15, LAB62, TEY013, [id number] ####[facility] [id number] [place] [address] [place]#### LAB46, LAB18 ####[facility] [id number] [place] [address] [facility] AND [facility], [place] [phone] PARTIAL THROMBOPLASTon 06-11 PARTIAL THROMBOPLASTIN TIME MECHANICAL 30.2 Seconds Normal 27.0-39.0 [facility] Comment on above: Performed By: #### L AB320 ####[facility] [id number] [address], [address] [place] [address] [phone]#### [id number] ####[facility] [id number] [address], [address] PROTIME-INRon 06-11-2017 INR Coag RelTime (Bld) Normal [facility] Comment on above: Result Comment: Cond ition and INR Therapeutic Range:Deep venous thrombosis 2.0-3.0Pulmonary embolism 2.0-3.0Acute myocardial infarction 2.0-3.0Atrial fibrillation 2.0-3.0Antiphospholipid syndrome (no other risk factors) 2.0-3.0Antiphospholipid syndrome with recurrent thromboembolism 2.5-3.0Bioprosthetic (tissue) valve 2.0-3.0Mechanical prosthetic valves 2.0-3.0 or 2.5-3.5 depending on valve type and location Performed By: #### L AB320 ####[facility] [id number] [address], [place] [id number]vdBeavercreThomas [place] [phone]#### [id number] ####[facility] [id number] [address], [address] INR Coag RelTime (PPP) 1.0 {INR} Normal 0.8-1.1 [facility] Comment on above: Performed By: #### L AB320 ####[facility] [id number] [address], [address] [place] [id number]vdBeavercreekJames [place] [phone]#### [id number] ####[facility] [id number] [place] [address] [facility] Prothrombin time (PT) Coag time (PPP) 11.4 s Normal 9.3-12.5 [facility] Comment on above: Performed By: #### L AB320 ####[facility] [id number] [place] [address] [facility] AND [facility]vd[address], [place] [phone]#### [id number] ####[facility] CLIA [id number] [place] [address] [facility] Progress Noteson 06-11-2017 Progress Notes Encounter Department : [facility] EMERGENCY DEPARTMENTProgress Notes by Sandie Flores DO at 06/11/2017 2:13 PMAuthor: Chaka Osoriorvice: NeurologyAuthor Type: PhysicianFiled: 06/11/2017 2:25 PMDate of Service: 06/11/2017 2:13 PMStatus: SignedEditor: Sandie Flores DO (Physician)Spoke with the ER about the caseReviewed epic care everywhere no matching patients-> DIO Aranda, Marcela of head reviewed await radiology opinion in my opinion nonacuteLabs September 05 2012 hyperlipidemia LDL 140Epic care everywhere last records were January 11, 2014Initial ER note indicates blood pressures 154/94 pupils are constricted Narcan's been given bloodglucose was 71 patient with a headache left-sided weakness garbled speechDouble visionThen unable to speak->>pt still has aphasia expressive aphasiaPt still with numnbessPt complains left elbow pain but still with some weakness on left arm per staffWe will teleremote inWill place order for cta head and neck given aphasia Normal [facility] SERUM TOX SCREENon 7 Acetaminophen mass conc <2 Abnormal 10 [facility] Comment on above: Performed By: #### L AB349 ####[facility] CLIA [id number] [address], [facility]31 [facility] AND [facility], [place] [phone] Ethanol 251 mg/dL Abnormal <=3 [facility] Comment on above: Performed By: #### L AB349 ####[facility] [id number] [facility] HOSPITALVDBEAVERCREEK, [address] [place] [phone] [facility] SpaldingvdBe[address], [phone] SALICYLATE ([facility]/IRS) 3.5 mg/dl Normal 3.0-20.0 [facility] Comment on above: Performed By: #### L AB349 ####[facility] [id number] , [address] [place] [id number] [place] [phone] SERUM TOX SCREEN Normal [facility] Comment on above: Result Comment: Sali cylate Therapeutic Range: 20-25 mg/dLAcetaminophen Therapeutic Range:10.00-30.00 ug/mL Performed By: #### L AB349 ####[facility] [id number] , [address] [place] [id number] [place] [phone] Vital Signs Date Time Vital Sign Value Performing Clinician Facility 02-18-2025 08:37-0400 Body temperature 97.9 [degF] Dr. Kris Wood DO Work Phone: [facility] 02-18-2025 08:37-0400 Diastolic blood pressure 91 mm[Hg] Dr. Kris Wood DO Work Phone: [facility] 02-18-2025 08:37-0400 Heart rate 77 /min Dr. Kris Wood DO Work Phone: [facility] 02-18-2025 08:37-0400 Respiratory rate 16 /min Dr. Kris Wood DO Work Phone: 5(601)614-398572 [place] [address] 02-18-2025 08:37-0400 SaO2% (BldA) [Mass fraction] 94 % Dr. Kris Wood DO Work Phone: 8(903)806-473372 [place] [address] 02-18-2025 08:37-0400 Systolic blood pressure 133 mm[Hg] Dr. Kris Wood DO Work Phone: 1(985)639-043672 [place] [address] 02-16-2025 10:56-0400 Body height 177.[address] Kris Wood DO Work Phone: 1(036)894-704072 [place] [address] 02-16-2025 10:56-0400 Body weight 112.[address] Kris Wood DO Work Phone: 8(959)082-854672 [place] [address] 02-15-2025 18:28-0400 Body mass index (BMI) [Ratio] 35.5 kg/m2 Dr. Kris Wood DO Work Phone: 3(545)270-415572 [place] [address] 02-15-2025 17:34-0400 Body temperature 98.4 [degF] Dr. Kris Wood DO Work Phone: 5(911)715-415272 [place] [address] 02-15-2025 17:34-0400 Diastolic blood pressure 78 mm[Hg] Dr. Kris Wood DO Work Phone: 1(211)842-501772 [place] [address] 02-15-2025 17:34-0400 Heart rate 78 /min Dr. Kris Wood DO Work Phone: 2(995)116-071172 [place] [address] 02-15-2025 17:34-0400 Respiratory rate 16 /min Dr. Kris Wood DO Work Phone: 2(107)413-113872 [place] [address] 02-15-2025 17:34-0400 SaO2% (BldA) [Mass fraction] 96 % Dr. Kris Wood DO Work Phone: 1(206)191-731472 [place] [address] 02-15-2025 17:34-0400 Systolic blood pressure 118 mm[Hg] Dr. Kris Wood DO Work Phone: 3(517)379-382372 [place] [address] 02-15-2025 15:33-0400 Body height 177.[address] Kris Wood DO Work Phone: [facility] 02-15-2025 15:33-0400 Body mass index (BMI) [Ratio] 35.6 kg/m2 Dr. Kris Wood DO Work Phone: [facility] 02-15-2025 15:33-0400 Body weight 112.[address] Kris Wood DO Work Phone: [facility] 07-26-2024 19:28-0500 Body mass index (BMI) [Ratio] 34.38 kg/m2 Diana Robertson APRN.MAMMOGRAPHY TECHNICIAN Work Phone: [facility] 07-26-2024 19:28-0500 Body temperature 97 [degF] Diana Robertson APRN.MAMMOGRAPHY TECHNICIAN Work Phone: [facility] 07-26-2024 19:28-0500 Body weight 108.7 kg Diana Robertson APRN.MAMMOGRAPHY TECHNICIAN Work Phone: [facility] 07-26-2024 19:28-0500 Diastolic blood pressure 75 mm[Hg] Diana Robertson APRN.MAMMOGRAPHY TECHNICIAN Work Phone: [facility] 07-26-2024 19:28-0500 Heart rate 64 /min Diaan Robertson APRN.MAMMOGRAPHY TECHNICIAN Work Phone: [facility] 07-26-2024 19:28-0500 Respiratory rate 18 /min Diana Robertson APRN.MAMMOGRAPHY TECHNICIAN Work Phone: [facility] 07-26-2024 19:28-0500 SaO2% (BldA) [Mass fraction] 97 % Diana Robertson APRN.MAMMOGRAPHY TECHNICIAN Work Phone: [facility] 07-26-2024 19:28-0500 Systolic blood pressure 113 mm[Hg] Diana Robertson APRN.MAMMOGRAPHY TECHNICIAN Work Phone: [facility] 06-05-2024 08:29-0400 Body height 177.8 cm Peggy Nicole DO Work Phone: [facility] 06-05-2024 08:29-0400 Body mass index (BMI) [Ratio] 20.37 kg/m2 Peggy Bonnie DO Work Phone: [facility] 06-05-2024 08:29-0400 Body weight 64.41 kg Peggy Bonnie DO Work Phone: [facility] 04-04-2024 09:51-0400 Body height 177.8 cm Peggy Bonnie DO Work Phone: [facility] 04-04-2024 09:51-0400 Body mass index (BMI) [Ratio] 34.72 kg/m2 Peggy Bonnie DO Work Phone: [facility] 04-04-2024 09:51-0400 Body weight 109.77 kg Peggy Bonnie DO Work Phone: [facility] 01-16-2024 14:56-0400 Body mass index (BMI) [Ratio] 33.82 kg/m2 Kwadwo Moomaw ICE SELLER.MAMMOGRAPHY TECHNICIAN Work Phone: [facility] 01-16-2024 14:56-0400 Body temperature 97.59 [degF] Kwadwo Moomaw ICE SELLER.MAMMOGRAPHY TECHNICIAN Work Phone: [facility] 01-16-2024 14:56-0400 Body weight 110 kg Kwadwo Moomaw ICE SELLER.MAMMOGRAPHY TECHNICIAN Work Phone: [facility] 01-16-2024 14:56-0400 Diastolic blood pressure 87 mm[Hg] Kwadwo Moomaw ICE SELLER.MAMMOGRAPHY TECHNICIAN Work Phone: [facility] 01-16-2024 14:56-0400 Heart rate 81 /min Kwadwo Moomaw ICE SELLER.MAMMOGRAPHY TECHNICIAN Work Phone: [facility] 01-16-2024 14:56-0400 Respiratory rate 18 /min Kwadwo Moomaw ICE SELLER.MAMMOGRAPHY TECHNICIAN Work Phone: [facility] 01-16-2024 14:56-0400 SaO2% (BldA) [Mass fraction] 95 % Kwadwo Moomaw ICE SELLER.MAMMOGRAPHY TECHNICIAN Work Phone: [facility] 01-16-2024 14:56-0400 Systolic blood pressure 124 mm[Hg] Kwadwo Spivey APRN.CNP Work Phone: [facility] 12-19-2023 10:00-0400 Body temperature 97.7 [degF] Dr. Sloan Gonzalez Work Phone: [facility] 12-19-2023 10:00-0400 Diastolic blood pressure 85 mm[Hg] Dr. Sloan Gonzalez Work Phone: [facility] 12-19-2023 10:00-0400 Heart rate 55 /min Dr. Sloan Gonzalez Work Phone: [facility] 12-19-2023 10:00-0400 Respiratory rate 14 /min Dr. Sloan Gonzalez Work Phone: [facility] 12-19-2023 10:00-0400 SaO2% (BldA) [Mass fraction] 97 % Dr. Sloan Gonzalez Work Phone: [facility] 12-19-2023 10:00-0400 Systolic blood pressure 130 mm[Hg] Dr. Sloan Gonzalez Work Phone: [facility] 12-18-2023 11:00-0400 Inhaled oxygen flow rate 96 L/min Dr. Sloan Gonzalez Work Phone: [facility] 12-17-2023 17:02-0400 Body height 180.[address] Sloan Gonzalez Work Phone: [facility] 12-17-2023 17:02-0400 Body mass index (BMI) [Ratio] 32.9 kg/m2 Dr. Sloan Gonzaelz Work Phone: [facility] 12-17-2023 17:02-0400 Body weight 107.[address] Sloan Gonzalez Work Phone: [facility] 12-17-2023 16:00-0400 Body temperature 98.2 [degF] Dr. Sloan Gonzalez Work Phone: [facility] 12-17-2023 16:00-0400 Diastolic blood pressure 82 mm[Hg] Dr. Sloan Gonzalez Work Phone: [facility] 12-17-2023 16:00-0400 Heart rate 73 /min Dr. Sloan Gonzalez Work Phone: [facility] 12-17-2023 16:00-0400 Respiratory rate 18 /min Dr. Sloan Gonzalez Work Phone: [facility] 12-17-2023 16:00-0400 SaO2% (BldA) [Mass fraction] 95 % Dr. Sloan Gonzalez Work Phone: [facility] 12-17-2023 16:00-0400 Systolic blood pressure 129 mm[Hg] Dr. Sloan Gonzalez Work Phone: [facility] 12-17-2023 13:26-0400 Body height 180.[address] Sloan Gonzalez Work Phone: [facility] 12-17-2023 13:26-0400 Body mass index (BMI) [Ratio] 34 kg/m2 Dr. Sloan Gonzalez Work Phone: [facility] 12-17-2023 13:26-0400 Body weight 110.[address] Sloan Gonzalez Work Phone: [facility] 04-19-2023 12:12-0400 Body height 180.3 cm Peggy Nicole DO Work Phone: [facility] 04-19-2023 12:12-0400 Body weight 108.86 kg Peggy Bonnie DO Work Phone: [facility] 02-16-2023 16:02-0400 Body height 177.8 cm Dae Mastrucci ICE SELLER.MAMMOGRAPHY TECHNICIAN Work Phone: [facility] 02-16-2023 16:02-0400 Body weight 105.69 kg Dae Mastrucci ICE SELLER.MAMMOGRAPHY TECHNICIAN Work Phone: [facility] 02-16-2023 16:02-0400 Diastolic blood pressure 91 mm[Hg] Dae Mastrucci ICE SELLER.MAMMOGRAPHY TECHNICIAN Work Phone: [facility] 02-16-2023 16:02-0400 Heart rate 75 /min Dae Mastrucci ICE SELLER.MAMMOGRAPHY TECHNICIAN Work Phone: [facility] 02-16-2023 16:02-0400 Respiratory rate 18 /min Dae Mastrucci ICE SELLER.MAMMOGRAPHY TECHNICIAN Work Phone: [facility] 02-16-2023 16:02-0400 SaO2% (BldA) [Mass fraction] 97 % Dae Mastrucci ICE SELLER.MAMMOGRAPHY TECHNICIAN Work Phone: [facility] 02-16-2023 16:02-0400 Systolic blood pressure 133 mm[Hg] Dae Mastrucci ICE SELLER.MAMMOGRAPHY TECHNICIAN Work Phone: [facility] 10-15-2021 09:48-0500 Body height 177.8 cm Andre Galano DPM Work Phone: [facility] 10-15-2021 09:48-0500 Body mass index (BMI) [Ratio] 34.29 kg/m2 Andre Sernaicino DPM Work Phone: [facility] 10-15-2021 09:48-0500 Body weight 108.41 kg Andre Galano DPM Work Phone: [facility] 10-14-2021 11:09-0500 Body height 177.8 cm Alda Maria MD Work Phone: [facility] 10-14-2021 11:09-0500 Body mass index (BMI) [Ratio] 34.29 kg/m2 Alda Maria MD Work Phone: [facility] 10-14-2021 11:09-0500 Body temperature 97 [degF] Alda Maria MD Work Phone: [facility] 10-14-2021 11:09-0500 Body weight 108.41 kg Alda Maria MD Work Phone: [facility] 10-14-2021 11:09-0500 Diastolic blood pressure 80 mm[Hg] Alda Maria MD Work Phone: [facility] 10-14-2021 11:09-0500 Heart rate 88 /min Alda Maria MD Work Phone: [facility] 10-14-2021 11:09-0500 Respiratory rate 18 /min Alda Maria MD Work Phone: [facility] 10-14-2021 11:09-0500 SaO2% (BldA) [Mass fraction] 94 % Alda Maria MD Work Phone: [facility] 10-14-2021 11:09-0500 Systolic blood pressure 134 mm[Hg] Alda Maria MD Work Phone: [facility] 10-01-2021 10:18-0500 Body height 177.8 cm Andre Sernaicino DPM Work Phone: [facility] 10-01-2021 10:18-0500 Body mass index (BMI) [Ratio] 34.15 kg/m2 Andre Kareemicino DPM Work Phone: [facility] 10-01-2021 10:18-0500 Body weight 107.96 kg Andre Kareemicino DPM Work Phone: [facility] 09-07-2021 17:55-0500 Body temperature 98.49 [degF] Ebunoluwa Wion DO Work Phone: [facility] 09-07-2021 17:55-0500 Body weight 107.96 kg Ebunoluwa Wion DO Work Phone: [facility] 09-07-2021 17:55-0500 Diastolic blood pressure 82 mm[Hg] Ebunoluwa Wion DO Work Phone: [facility] 09-07-2021 17:55-0500 Heart rate 83 /min Ebunoluwa Wion DO Work Phone: [facility] 09-07-2021 17:55-0500 Respiratory rate 16 /min Ebunoluwa Wion DO Work Phone: [facility] 09-07-2021 17:55-0500 SaO2% (BldA) [Mass fraction] 94 % Ebmahamed Bowleson DO Work Phone: [facility] 09-07-2021 17:55-0500 Systolic blood pressure 129 mm[Hg] Thomas Bowleson DO Work Phone: [facility] 12-22-2020 18:15-0400 Body Temperature 97.5 [degF] [facility] are System 12-22-2020 18:15-0400 BP Diastolic 80 mm[Hg] [facility] System 12-22-2020 18:15-0400 BP Systolic 144 mm[Hg] [facility] 12-22-2020 18:15-0400 Pulse (Heart Rate) 74 /min [facility] 12-22-2020 18:15-0400 Pulse Oximetry 95 % [facility] 12-22-2020 18:15-0400 Respiratory Rate 20 /min [facility] are System 12-22-2020 09:00-0400 BMI (Body Mass Index) 28.7 kg/m2 [facility] 12-22-2020 09:00-0400 Body weight 90.72 kg [facility] 12-22-2020 09:00-0400 Height 177.8 cm [facility] 04-27-2020 11:10-0400 BMI (Body Mass Index) 30.13 kg/m2 [facility] 04-27-2020 11:10-0400 Body Temperature 98.01 [degF] [facility] 04-27-2020 11:10-0400 Body [facility] 95.25 [facility] 04-27-2020 11:10-0400 BP Diastolic 87 mm[Hg] [facility] 04-27-2020 11:10-0400 BP Systolic 141 mm[Hg] [facility] 04-27-2020 11:10-0400 Height 177.8 cm Tan [facility] 04-27-2020 11:10-0400 Pulse (Heart Rate) 82 /min Tan [facility] 04-27-2020 11:10-0400 Pulse Oximetry 98 % [facility] 04-27-2020 11:10-0400 Respiratory Rate 16 /min Tan [facility] 08-29-2019 18:54-0500 BP Diastolic 70 mm[Hg] Ananda [facility] 08-29-2019 18:54-0500 BP Systolic 114 mm[Hg] [facility] 08-29-2019 18:54-0500 Pulse (Heart Rate) 63 /min [facility] 08-29-2019 18:54-0500 Pulse Oximetry 94 % [facility]anda [facility] 08-29-2019 18:54-0500 Respiratory Rate 16 /min Ananda [facility] 08-29-2019 14:12-0500 Body Temperature 97.2 [degF] [facility] 08-29-2019 10:11-0500 BMI (Body Mass Index) 33.05 kg/m2 Ananda [facility] 08-29-2019 10:11-0500 Body weight 97.16 kg [facility] 08-29-2019 10:11-0500 Height 171.5 cm [facility] 07-24-2019 18:03-0500 Body Temperature 98.71 [degF] Olayinka Morgan [facility] are [facility] 07-24-2019 18:03-0500 BP Diastolic 81 mm[Hg] Olayinka [facility] 07-24-2019 18:03-0500 BP Systolic 124 mm[Hg] Olayinka [facility] 07-24-2019 18:03-0500 Pulse (Heart Rate) 93 /min Olayinka [facility] 07-24-2019 18:03-0500 Pulse Oximetry 96 % Olayinka [facility] 07-24-2019 18:03-0500 Respiratory Rate 16 /min Olayinka Morgan [facility] are System 07-24-2019 16:20-0500 BMI (Body Mass Index) 29.29 kg/m2 Olayinka Abelardo [facility] 07-24-2019 16:20-0500 Body weight 95.25 kg [facility] 07-24-2019 16:20-0500 Height 180.3 cm [facility] 06-20-2019 17:42-0400 BMI (Body Mass Index) 29.01 kg/m2 Tomi Uriarte [facility] 06-20-2019 17:42-0400 Body Temperature 98.2 [degF] Tomi Morgan [facility] are System 06-20-2019 17:42-0400 Body weight 94.35 kg Tomi [facility] 06-20-2019 17:42-0400 BP Diastolic 78 mm[Hg] [facility] 06-20-2019 17:42-0400 BP Systolic 134 mm[Hg] [facility] 06-20-2019 17:42-0400 Height 180.3 cm [facility] 06-20-2019 17:42-0400 Pulse (Heart Rate) 53 /min [facility] 06-20-2019 17:42-0400 Pulse Oximetry 97 % [facility]i [facility] 06-20-2019 17:42-0400 Respiratory Rate 19 /min Tomi Uriarte [facility] are System Encounters Encounter Date Encounter Type Care Provider Facility Start: 02-17-2025 Non-patient / Non-visit Dr. Vu Jean MD [facility] Work Phone: Start: 02-16-2025 Non-patient / Non-visit Dr. Vu Jean MD [facility] Work Phone: Start: 02-15-2025 Non-patient / Non-visit Dr. Samantha Leung MD [facility] Work Phone: Start: 02-15-2025 ambulatory Samantha Leung [place] Start: 02-15-2025 End: 02-18-2025 Evaluation and management of inpatient Dr. Samantha Leung MD -[facility] 3 Work Phone: Start: 07-26-2024 End: 07-26-2024 ambulatory PEGGY NICOLE Facility:[facility] Start: 07-26-2024 End: 07-26-2024 Patient encounter procedure Diana Duy ICE SELLER.MAMMOGRAPHY TECHNICIAN Work Phone: [facility] Comment on above: Pain, dental (Primar y Dx) Start: 07-07-2024 End: 07-09-2024 Refill Peggy J [employer] Work Phone: [facility] Comment on above: Refill Request Start: 06-27-2024 End: 06-27-2024 ambulatory Jan LEE [place] Start: 06-05-2024 End: 06-05-2024 Distance Health Peggy [email or web address] Bonnie [employer] Work Phone: [facility] Comment on above: Encounter for comple tion of form with patient (Primary Dx); WHITNEY (generalized anxiety disorder) Start: 05-28-2024 End: 05-29-2024 ambulatory Peggy [email or web address] Work Phone: [facility] Comment on above: Donor Suitability Fo li Start: 04-04-2024 End: 04-04-2024 Distance Health [employer] Work Phone: [facility] Comment on above: DDD (degenerative di sc disease), lumbar (Primary Dx); Screening for colon cancer; Hypertension, essential; Alcohol abuse; WHITNEY (generalized anxiety disorder) Start: 01-27-2024 ambulatory [employer] Bonnie Dumont [employer] Work Phone: [facility] Comment on above: Valaciclovir Herpes Start: 01-16-2024 End: 01-16-2024 ambulatory [employer] Facility:[facility] Start: 01-16-2024 End: 01-16-2024 Patient encounter procedure Kwadwo 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 Félix Gonzalez Work Phone: [facility] Work Phone: Start: 12-18-2023 Non-patient / Non-visit Dr. Félix Gonzalez Work Phone: [facility] Work Phone: Start: 12-17-2023 Non-patient / Non-visit Dr. Félix Gonzalez Work Phone: [facility] Work Phone: Start: 12-17-2023 End: 12-19-2023 Evaluation and management of inpatient Dr. Sloan Gonzalez Work Phone: [facility] 3 Work Phone: Start: 11-01-2023 Refill Peggy J Bonnie D O Work Phone: [facility] Comment on above: Refill Request Start: 10-20-2023 Refill Peggy J Bonnie D O Work Phone: [facility] Comment on above: Refill Request Start: 10-06-2023 End: 10-06-2023 ambulatory PEGGY NICOLE Facility:[facility] Start: 09-30-2023 End: 10-01-2023 Emergency department patient visit [facility] Facility:[facility] Start: 08-17-2023 Refill Peggy J Bonnie D O Work Phone: [facility] Comment on above: Refill Request Start: 08-09-2023 End: 08-09-2023 ambulatory ALECIA BESS Facility:[facility] Start: 08-09-2023 End: 08-09-2023 Patient encounter procedure James PACHECO [facility] Comment on above: Uncomplicated alcoho l dependence (HCC) [F10.20] (Primary Dx) Start: 07-28-2023 Chart abstracting Alecia Lundy Work Phone: [facility] Comment on above: Behavioral Health/So cial Work Start: 07-20-2023 Refill Peggy J Bonnie D O Work Phone: [facility] Comment on above: Refill Request Start: 07-19-2023 Telephone encounter Alecia PACHECO Work Phone: [facility] Comment on above: Behavioral Health/So cial Work Start: 07-11-2023 End: 07-11-2023 Distance TripItmika Nicole DO Work Phone: [facility] Comment on above: Cigarette nicotine d ependence with other nicotine-induced disorder (Primary Dx); WHITNEY (generalized anxiety disorder); Hypertension, essential Start: 07-06-2023 ambulatory Peggy Samantha Werner Work Phone: [facility] Comment on above: Prescription request Start: 06-24-2023 Refill Peggy Werner Work Phone: [facility] Comment on above: Refill Request Start: 06-07-2023 End: 06-07-2023 Distance [employer] Peggy Nicole DO Work Phone: [facility] Comment on above: Hypertension, essent ial (Primary Dx); Plantar fasciitis, bilateral; Cigarette nicotine dependence with other nicotine-induced disorder Start: 05-16-2023 End: 05-17-2023 ambulatory PEGGYMika NICOLE Facility:[facility] Start: 05-16-2023 Encounter for genera l adult medical examination without abnormal findings [facility] Start: 05-14-2023 Refill Peggymika Werner Work Phone: [facility] Comment on above: Refill Request Start: 05-13-2023 Get Medical Advice Peggy Traore joseph DO Work Phone: [facility] Comment on above: Medication refills Start: 04-20-2023 Telephone encounter Alecia PACHECO Work Phone: [facility] Comment on above: Behavioral Health/So cial Work Start: 04-19-2023 End: 04-19-2023 Distance TripItmika Nicole DO Work Phone: [facility] Comment on above: H/O spinal fusion (P rimary Dx); DDD (degenerative disc disease), lumbar; PTSD (post-traumatic stress disorder); History of alcoholism (HCC); WHITNEY (generalized anxiety disorder); Screening for colon cancer; Preventative health care Start: 04-19-2023 End: 04-19-2023 Patient encounter status Peggy Nicole DO Work Phone: [facility] Work Phone: Start: 02-21-2023 Telephone encounter Dae garcia ICE SELLER.MAMMOGRAPHY TECHNICIAN Work Phone: [facility] Comment on above: Consult (ENT #[id number] ) Start: 02-16-2023 End: 02-16-2023 ambulatory DAE HOPERUCCI Facility:[facility] Start: 02-16-2023 End: 02-16-2023 Patient encounter procedure Dae Mari ICE SELLER.MAMMOGRAPHY TECHNICIAN Work Phone: [facility] Comment on above: Impacted cerumen of left ear (Primary Dx); Ear drainage, unspecified laterality Start: 02-23-2022 Refill Alda Maria MD Work Phone: [facility] Start: 11-18-2021 Refill Alda Maria MD Work Phone: [facility] Start: 10-15-2021 End: 10-15-2021 ambulatory ANDRE BARCENAS [facility] Ambulatory Start: 10-15-2021 End: 10-15-2021 Office outpatient visit 15 minutes Andre Duong DPAnalisa Work Phone: [facility] Comment on above: Closed fracture of b ase of fifth metatarsal bone of left foot, initial encounter (Primary Dx) Start: 10-14-2021 End: 10-14-2021 ambulatory ALDA MARIA [facility] Start: 10-14-2021 End: 10-14-2021 Office outpatient new 45 minutes Alda Maria MD Work Phone: [facility] Comment on above: Uncomplicated alcoho l dependence (HCC) (Primary Dx); HSV-1 infection; Chronic bilateral low back pain without sciatica; Anxiety with depression Start: 10-09-2021 End: 10-09-2021 Emergency department patient visit PHYSICIAN [facility] Start: 10-01-2021 End: 10-01-2021 ambulatory THOMAS HOPSON [facility] Ambulatory Start: 10-01-2021 End: 10-01-2021 Office outpatient new 30 minutes Ebunoldakotaa Jose D Kay DO Work Phone: [facility] Comment on above: Gastrocnemius equinu s, unspecified laterality (Primary Dx); Plantar fasciitis of right foot; Pes planus, unspecified laterality; Peroneal tendonitis, right Start: 09-07-2021 End: 09-07-2021 Office outpatient new 45 minutes Ebunoluwa B Linda DO Work Phone: [facility] [place] Comment on above: Plantar fasciitis of right foot (Primary Dx); Pes planus, unspecified laterality; Peroneal tendonitis, right Start: 12-22-2020 End: 12-22-2020 Emergency department patient visit Violetta Foley Work Phone: [facility] Comment on above: Depression, unspecif ied depression type (Primary Dx); History of alcohol abuse; Lab test negative for COVID-19 virus Start: 04-27-2020 End: 04-27-2020 Emergency department patient visit Tan Marrero Work Phone: [facility] Comment on above: Partial thickness bu rn of left wrist, initial encounter (Primary Dx) Start: 11-08-2019 End: 11-08-2019 Patient encounter procedure Christian Harvey Work Phone: [facility] Start: 11-07-2019 End: 11-07-2019 Letter encounter Reed Ferrera [facility] Start: 10-29-2019 End: 10-29-2019 Refill Karrie Willis Work Phone: [facility] Comment on above: Chronic low back keke n, unspecified back pain laterality, unspecified whether sciatica present Start: 10-23-2019 End: 10-23-2019 Telephone encounter Karrie Willis Work Phone: [facility] Comment on above: Information or Advic e only Start: 10-17-2019 End: 10-17-2019 E-mail encounter from carer Karrie Willis Work Phone: [facility] Start: 10-17-2019 Patient encounter procedure Karrie Willis Work Phone: [facility] Comment on above: RE: Prescription Que stion Start: 10-15-2019 End: 10-15-2019 Professional / ancillary services management Negrita BARNES Start: 10-01-2019 End: 10-01-2019 Refill Karrie Willis Work Phone: [facility] Comment on above: Chronic low back keke n, unspecified back pain laterality, unspecified whether sciatica present Start: 10-01-2019 End: 10-01-2019 Refill Karrie Willis Work Phone: [facility] Comment on above: Chronic low back keke n, unspecified back pain laterality, unspecified whether sciatica present Start: 09-25-2019 End: 09-25-2019 Refill Karrie Willis Work Phone: [facility] Comment on above: Chronic low back keke n, unspecified back pain laterality, unspecified whether sciatica present Start: 09-24-2019 End: 09-24-2019 Subsequent hospital visit by physician Karrie Willis Work Phone: [facility] Comment on above: Arrived Start: 09-24-2019 End: 09-24-2019 Patient encounter procedure Christian Gabriel Work Phone: [facility] Start: 09-17-2019 End: 09-17-2019 Subsequent hospital visit by physician Karrie Willis Work Phone: [facility] Comment on above: Arrived Start: 09-10-2019 End: 09-10-2019 Subsequent hospital visit by physician Karrie Willis Work Phone: [facility] Comment on above: Arrived Start: 09-03-2019 End: 09-03-2019 Subsequent hospital visit by physician Karrie Willis Work Phone: [facility] Comment on above: Arrived Start: 08-29-2019 End: 08-29-2019 Subsequent hospital visit by physician Ananda Zhang Work Phone: [facility] ([facility]) Start: 08-27-2019 End: 08-27-2019 Subsequent hospital visit by physician Ananda Zhang Work Phone: [facility] Comment on above: Pre-op testing; SVT (supraventricular tachycardia) (HCC) Start: 08-27-2019 End: 08-27-2019 Subsequent hospital visit by physician Karrie Willis Work Phone: [facility] Comment on above: Arrived Start: 08-20-2019 End: 08-20-2019 Subsequent hospital visit by physician Karrie Willis Work Phone: [facility] Comment on above: Arrived Start: 08-08-2019 End: 08-08-2019 Subsequent hospital visit by physician Karrie Willis Work Phone: [facility] Comment on above: Uncomplicated alcoho l dependence (HCC)- sober since 06/2019; Elevated liver enzymes Start: 07-30-2019 End: 07-30-2019 Subsequent hospital visit by physician Karrie Willis Work Phone: [facility] Comment on above: Bradycardia with 41- 50 beats per minute Start: 07-24-2019 End: 07-24-2019 Emergency department patient visit Olayinka Gonzalo Abelardo Work Phone: [facility] Comment on above: Supraventricular tac hycardia (HCC) (Primary Dx) Start: 07-12-2019 End: 07-12-2019 Subsequent hospital visit by physician Karrie Willis Work Phone: [facility] Comment on above: SVT (supraventricula r tachycardia) (HCC) Start: 07-05-2019 End: 07-05-2019 Subsequent hospital visit by physician Karrie Willis Work Phone: [facility] PreAdmission Testing Comment on above: SVT (supraventricula r tachycardia) (HCC); Screening for lipid disorders Start: 06-20-2019 End: 06-20-2019 Emergency department patient visit Tomi Uriarte Work Phone: [facility] Comment on above: Mood disorder (HCC) (Primary Dx) Start: 06-28-2017 End: 06-29-2017 Patient encounter DARRELL ROMERO [facility] Start: 06-27-2017 Ambulatory DARRELL ROMERO [facility] Start: 06-11-2017 End: 06-11-2017 Emergency department patient visit NEELA Jeffery [facility] Procedures Date Procedure Procedure Detail Performing Clinician Start: 02-18-[address] Kris Wood DO Work Phone: Start: 02-16-2025 Serum inorganic phos phate measurement Dr. Kris Wood DO Work Phone: Start: 02-15-2025 Methadone measuremen t, urine Dr. Kris Wood DO Work Phone: Start: 02-15-[address] Kris Wood DO Work Phone: Start: 05-16-2023 Lipid 1996 panel - S grant or Plasma Peggy Bonnie DO Work Phone: Start: 12-22-2020 SARS-COV-2 RAPID MOL ECULAR TEST Violetta Foley Javier Work Phone: Start: 12-22-2020 Drug tst prsmv instr mnt chem analyzers pr date Violetta Foley Javier Work Phone: Start: 12-22-2020 Urnls dip stick/tabl et reagent auto microscopy Nasra Hauser Wengo Work Phone: Start: 12-22-2020 Basic metabolic pane l calcium total Nasra Hauser Wengo Work Phone: Start: 12-22-2020 Drug screen quantita tive alcohols Violetta Foley Manta Work Phone: Start: 12-22-2020 GLOMERULAR FILTRATION RATE Nasra Hauser Wengo Work Phone: Start: 12-22-2020 Standard ECG Nasra Hauser Ho useholder Work Phone: Start: 12-22-2020 CBC WITH DIFFERENTIAL J theresa Hauser Wengo Work Phone: Start: 05-15-2020 Adult depression scr eening assessment Violetta Herrera Start: 08-29-2019 EP STUDY WITH ABLATION Unspecified Provider Start: 08-27-2019 Basic metabolic pane l calcium total Ananda Zhang Work Phone: Start: 08-27-2019 Blood count complete automated Ananda Zhang Work Phone: Start: 08-27-2019 GLOMERULAR FILTRATION RATE Ananda Zhang Work Phone: Start: 08-27-2019 TYPE AND SCREEN Ananda Marianela amelia Work Phone: Start: 08-08-2019 Acute hepatitis panel K ristin Sarah Willis Work Phone: Start: 08-08-2019 Hepatic function panel Karrie Willis Work Phone: Start: 07-24-2019 Assay of magnesium Olayinka Sevilla Abelardo Work Phone: Start: 07-24-2019 Assay of phosphorus inorganic Olayinka Sevilla Abelardo Work Phone: Start: 07-24-2019 Assay of troponin quantitative Olayinka Zhou Work Phone: Start: 07-24-2019 Basic metabolic pane l calcium total Olayinka Zhou Work Phone: Start: 07-24-2019 GLOMERULAR FILTRATION RATE Olayinka Zhou Work Phone: Start: 07-24-2019 CBC WITH DIFFERENTIAL J ohramakrishna Gonzalo Zhou Work Phone: Start: 07-24-2019 Standard ECG Olayinka Sevilla Addison fernández Work Phone: Start: 07-05-2019 25 hydroxy includes fractions if performed Karrie Willis Work Phone: Start: 07-05-2019 Assay of folic acid serum Karrie Willis Work Phone: Start: 07-05-2019 Assay of glutamyltra se gamma Karrie Willis Work Phone: Start: 07-05-2019 Assay of magnesium Mike Willis Work Phone: Start: 07-05-2019 Assay of thyroid stimulating hormone tsh Karrie Willis Work Phone: Start: 07-05-2019 C-reactive protein Mike Willis Work Phone: Start: 07-05-2019 CBC WITH DIFFERENTIAL K mini Willis Work Phone: Start: 07-05-2019 Comprehensive metabo lic panel Karrie Willis Work Phone: Start: 07-05-2019 Cyanocobalamin vitamin b-12 Karrie Willis Work Phone: Start: 07-05-2019 GLOMERULAR FILTRATION RATE Karrie Willis Work Phone: Start: 07-05-2019 Hemoglobin A1c/Hemoglobin.total in Blood Karrie Willis Work Phone: Start: 07-05-2019 Lipid panel Karrie Willis Work Phone: Start: 07-05-2019 Standard ECG Karrie Willis Work Phone: Start: 07-05-2019 Lipid 1996 panel - S grant or Plasma Karrie Willis Start: 06-20-2019 Drug screen quantita tive alcohols Tomi Uriarte Work Phone: Start: 06-20-2019 Drug tst prsmv instr mnt chem analyzers pr date Tomi Uriarte Work Phone: Plan of Treatment Date Care Activity Detail Author Start: 08-08-2029 Colonoscopy [facility] Start: 08-08-2029 Screening for malignant neoplasm of colon COLORECTAL CANCER SCREENING [facility] Start: 05-16-2028 Lipid 1996 panel - Serum or Plasma Lipid Screening [facility] Start: 05-16-2028 Lipid panel Lipid Screening [facility] Start: 05-16-2028 LIPID SCREEN LIPID SCREEN [facility] Start: 09-30-2026 Diabetes Screening Diabetes Screening [facility] Start: 06-27-2026 Diabetes Screening Diabetes Screening [facility] Start: 05-16-2026 DIABETES SCREEN DIABETES SCREEN [facility] Start: 05-16-2026 Diabetes Screening Diabetes Screening [facility] Start: 07-26-2025 BP Controlled (<130/80) BP Controlled (<130/80) [facility] Start: 06-05-2025 Annual PCP Team Chronic Disease Visit Annual PCP Team Chronic Disease Visit [facility] Start: 04-04-2025 Annual PCP Team Chronic Disease Visit Annual PCP Team Chronic Disease Visit [facility] Start: 02-18-2025 Patient discharge [facility] Start: 02-18-2025 Ultrasonography of abdomen Abdomen Limited [facility] Start: 02-18-2025 US Abdomen limited [facility] Start: 02-16-2025 Hepatic function panel [facility] Start: 02-16-2025 Prothrombin time [facility] Start: 02-16-2025 Serum inorganic phosphate measurement [facility] Start: 02-16-2025 Thyroid stimulating hormone measurement [facility] Start: 02-15-2025 Following clinical pathway protocol [facility] Start: 02-15-2025 Hospital admission, emergency, from emergency room, medical nature [facility] Start: 02-15-2025 End: 02-15-2025 [facility] Start: 02-15-2025 Prothrombin time [facility] Start: 02-15-2025 Admission procedure [facility] Start: 02-15-2025 Ambulation without limitation [facility] Start: 02-15-2025 Assessment of risk of venous thromboembolism [facility] Start: 02-15-2025 Insertion of catheter into peripheral vein [facility] Start: 02-15-2025 Providing care according to standard [facility] Start: 02-15-2025 Verification routine [facility] Start: 02-15-2025 End: 02-15-2025 [facility] Start: 02-15-2025 Consultation [facility] Start: 02-15-2025 Patient referral to dietitian [facility] Start: 12-09-2024 Urine microalbumin profile [facility] Start: 10-06-2024 Annual PCP Team Chronic Disease Visit Annual PCP Team Chronic Disease Visit [facility] Start: 07-11-2024 Annual PCP Team Chronic Disease Visit Annual PCP Team Chronic Disease Visit [facility] Start: 07-05-2024 Fasting lipid profile LIPID SCREENING [facility] Start: 07-05-2024 LIPID SCREEN LIPID SCREEN [facility] Start: 06-05-2024 End: 06-05-2024 ambulatory 06/05/2024 8:40 AM EDT [facility] [address] [place] [address] Peggy Nicole DO [address] [place] [address] [employer] form. [facility] Comment on above: [employer] form. Start: 05-20-2024 Covid-19 Vaccine () Covid-19 Vaccine () [facility] Start: 05-20-2024 Covid-19 Vaccine () Covid-19 Vaccine () [facility] Start: 05-20-2024 Influenza vaccination [facility] Start: 05-18-2024 End: 05-18-2024 Patient encounter procedure 05/18/2024 11:30 AM EDT Office Visit Otolaryngology [address] [address] Gladis Caban MD [address] [address] Ear drainage, unspecified laterality [H92.10] [facility] Comment on above: Ear drainage, unspecified laterality [H9 2.10] Start: 03-19-2024 End: 03-19-2024 Patient encounter procedure 03/19/2024 2:30 PM EDT Office Visit Otolaryngology [address] [address] Gladis Caban MD [address] [address] Ear drainage, unspecified laterality [H92.10] [facility] Comment on above: Ear drainage, unspecified laterality [H9 2.10] Start: 02-12-2024 Prostate specific antigen measurement Prostate Cancer Screening Discussion [facility] Start: 12-19-2023 Patient discharge [facility] Start: 12-17-2023 Following clinical pathway protocol [facility] Start: 12-17-2023 Assessment of risk of venous thromboembolism [facility] Start: 12-17-2023 Notification of physician [facility] Start: 12-17-2023 Vital signs measurements [facility] Start: 12-17-2023 [facility] Start: 12-17-2023 Admission procedure [facility] Start: 12-17-2023 Hospital admission, emergency, from emergency room, medical nature [facility] Start: 09-19-2023 Behavioral Health Screening Behavioral Health Screening [facility] Start: 09-19-2023 Depression Assessment Depression Assessment [facility] Start: 05-20-2023 Covid-19 Vaccine ( season) Covid-19 Vaccine () [facility] Start: 05-20-2023 Influenza vaccination [facility] Start: 04-19-2023 End: 06-19-2023 Comprehensive metabolic 2000 panel - Serum or Plasma COMP METABOLIC PANEL Lab Routine Preventative health care Expected: 04/19/2023, Expires: 06/19/2023 [facility] Work Phone: Comment on above: Expected: 04/19/2023, Expires: 3 Start: 04-19-2023 End: 06-19-2023 Hemoglobin A1c in Blood HGB A1C Lab Routine Preventative health care Expected: 04/19/2023, Expires: 06/19/2023 [facility] Work Phone: Comment on above: Expected: 04/19/2023, Expires: 3 Start: 04-19-2023 End: 06-19-2023 Lipid 1996 panel - Serum or Plasma LIPID PANEL BASIC Lab Routine Preventative health care Expected: 04/19/2023, Expires: 06/19/2023 [facility] Work Phone: Comment on above: Expected: 04/19/2023, Expires: 3 Start: 09-19-2022 DEPRESSION ASSESSMENT DEPRESSION ASSESSMENT [facility] Start: 05-20-2022 Influenza vaccination Sequential Influenza Vaccine (Season Ended) [facility] Start: 11-02-2021 End: 11-02-2021 Patient encounter procedure 11/02/2021 Office Visit Orthopedic Surgery MendAndre french DPM [address] [place] [address] [facility] Start: 10-14-2021 End: 10-14-2021 Patient encounter procedure 10/14/2021 Office Visit Primary Care Alda Maria MD [address] [place] [address] [facility] Primary [facility] Physicians Start: 09-22-2021 End: 09-22-2021 Patient encounter procedure 09/22/2021 Office Visit Orthopedic Surgery Andre Duong DPM [address] [place] [address] [facility] Start: 05-20-2021 Influenza vaccination Sequential Influenza Vaccine (#1) [facility] Start: 05-15-2021 Adult depression screening assessment DEPRESSION SCREENING [facility] Start: 08-08-2020 Adult depression screening assessment [facility] Comment on above: Postponed from 1981 (Provider Ashley vicente) Start: 06-11-2020 DIABETES SCREEN DIABETES SCREEN [facility] Start: 06-04-2020 End: 06-04-2020 Office Visit 06/04/2020 Office Visit Family Medicine Karrie Willis PA [address] [place] [address] [phone] [facility] Start: 05-20-2020 Influenza vaccination given INFLUENZA VACCINE (#1) [facility] Start: 01-08-2020 End: 01-08-2020 Office Visit 01/08/2020 Office Visit Dentistry Christian Gabriel DDS [address] [place] [address] [phone] [facility] Start: 11-27-2019 End: 11-27-2019 Office Visit 11/27/2019 Office Visit Cardiology Ananda Zhang MD [address] [facility] 1[address] [place] [address] [phone] [facility] Start: 11-14-2019 End: 11-14-2019 Office Visit 11/14/2019 Office Visit Family Medicine Karrie Willis PA [address] [place] [address] [phone] [facility] Start: 11-08-2019 End: 11-08-2019 Office Visit 11/08/2019 Office Visit Dentistry Christian Gabriel DDS [address] [place] [address] [phone] [facility] Start: 10-15-2019 End: 10-15-2019 Office Visit 10/15/2019 Office Visit Cardiology Ananda Zhang MD [address] [address] [phone] [facility] Start: 10-01-2019 End: 10-01-2019 Appointment 10/01/2019 Appointment Physical Therapy Karrie Willis PA [address] [place] [address] [phone] Bogdan [address] PTA [facility] Start: 09-28-2019 End: 09-28-2019 Appointment [facility] Start: 09-24-2019 End: 09-24-2019 Appointment 09/24/2019 Appointment Physical Therapy Karrie Willis PA [address] [address] [phone] Janet Resendiz [address] PTA [facility] Start: 09-24-2019 End: 09-24-2019 Office Visit 09/24/2019 Office Visit Christian Ann DDS [address] [place] [address] [phone] [facility] Start: 09-21-2019 End: 09-21-2019 Appointment [facility] Start: 09-14-2019 End: 09-14-2019 Appointment 09/14/2019 Appointment Physical Therapy Karrie Willis PA [address] [place] [address] [phone] Negrita Zamora, PT, DPT [facility] Start: 09-07-2019 End: 09-07-2019 Appointment 09/07/2019 Appointment Physical Therapy Karrie Willis PA [address] [place] [address] [phone] Sosa Golden PTA [facility] Start: 09-03-2019 End: 09-03-2019 Appointment 09/03/2019 Appointment Physical Therapy Karrie Willis PA [address] [place] [address] [phone] Sosa Golden PTA [facility] Start: 08-31-2019 End: 08-31-2019 Appointment [facility] Start: 08-29-2019 End: 08-29-2019 Hospital Encounter [facility] (OP S) Comment on above: SUPRAVENTRICULAR TACHYCARDIA ABLATION (S [place]) Start: 08-27-2019 End: 08-27-2019 Appointment 08/27/2019 Appointment Physical Therapy Karrie Willis PA [address] [address] [phone] Negrita Zamora, PT, DPT [facility] Start: 08-15-2019 End: 08-15-2019 Office Visit 08/15/2019 Office Visit Family Medicine Karrie Willis PA [address] [place] [address] [phone] [facility] Start: 08-14-2019 End: 08-14-2019 Office Visit 08/14/2019 Office Visit Cardiology Rupesh Franco MD [address] [place] [address] [phone] [facility] Start: 08-09-2019 Screening for malignant neoplasm of colon COLORECTAL CANCER SCREENING [facility] Start: 08-09-2019 End: 08-09-2019 Office Visit 08/09/2019 Office Visit Cardiology Ananda Zhang MD [address] [facility] 1[address] [place] [address] [phone] [facility] Start: 08-08-2019 End: 08-08-2019 Office Visit 08/08/2019 Office Visit Family Medicine Karrie Willis PA [address] [place] [address] [phone] [facility] Start: 07-30-2019 End: 07-30-2019 Appointment 07/30/2019 Appointment [facility]ostics Karrie Willis PA [address] [place] [address] [phone] [facility] Start: 07-12-2019 End: 07-12-2019 Appointment 07/12/2019 Appointment [facility] Karrie Willis PA [address] [place] [address] [phone] [id number] [facility]ST[facility] Start: 05-20-2019 Influenza vaccination given INFLUENZA VACCINE (#1) [facility] Start: 2019 Administration of herpes zoster vaccine Zoster Vaccines (1 of 2) [facility] Start: 2019 Colonoscopy COLON CANCER SCREENING 9 YEAR COLONOSCOPY [facility] Start: 2019 Screening for malignant neoplasm of colon [facility] Start: 2019 SHINGLES VACCINE (1 of 2) SHINGLES VACCINE (1 of 2) [facility] Start: 2019 SHINGRIX VACCINE (1 of 2) SHINGRIX VACCINE (1 of 2) [facility] Start: 2019 Zoster vaccine hzv live for subcutaneous use ZOSTER (SHINGLES) VACCINE (1 of 2) [facility] Start: 2014 COLOGUARD (FIT-DNA) COLOGUARD (FIT-DNA) [facility] Start: 2014 Colonoscopy COLONOSCOPY [facility] Start: 2014 COLORECTAL CANCER SCREENING COLORECTAL CANCER SCREENING [facility] Start: [address] COLONOGRAPHY [facility] Start: 2014 FECAL OCCULT BLOOD FECAL OCCULT BLOOD [facility] Start: 2014 Screening for malignant neoplasm of colon [facility] Start: 2014 SIGMOIDOSCOPY SIGMOIDOSCOPY [facility] Start: 1990 Tetanus, diphtheria and acellular pertussis vaccination TDAP/TD ADULT [facility] Start: 02-12-1988 Hepatitis B Vaccine (1 of 3 - 19+ 3-dose series) Hepatitis B Vaccine (1 of 3 - 19+ 3-dose series) [facility] Start: 1987 ANNUAL WELLNESS VISIT ANNUAL WELLNESS VISIT [facility] Start: 1987 Anxiety Screening Anxiety Screening [facility] Start: 1987 BP Controlled (<130/80) BP Controlled (<130/80) [facility] Start: 1987 Depression Screening Depression Screening [facility] Start: 1987 Hepatitis C screening Hepatitis C Screening [facility] Start: 1987 HEPATITIS C SCREENING HEPATITIS C SCREENING [facility] Start: 1987 HIV SCREENING HIV SCREENING [facility] Start: 1987 HIV screening HIV Screening [facility] Start: 1987 WELLNESS ANNUAL VISIT WELLNESS ANNUAL VISIT [facility] Start: 02-12-1984 HIV screening HIV Screening [facility] Start: 1981 Adult depression screening assessment PHQ9 DEPRESSION SCREENING [facility] Start: 1981 Depression screening using PHQ-9 (Patient Health Questionnaire 9) score Depression Screening (PHQ-2/9) [facility] Start: 02-12-1980 Diphtheria + pertussis + tetanus vaccine (product) DTAP/TDAP/TD VACCINE (1 - Tdap) [facility] Start: 1975 PNEUMOCOCCAL (1 - PCV) PNEUMOCOCCAL (1 - PCV) [facility] Start: 1975 Pneumococcal vaccination [facility] Start: 1975 Pneumococcal Vaccine: Ped or At-Risk (1 - PCV) Pneumococcal Vaccine: Ped or At-Risk (1 - PCV) [facility] Start: 1975 Pneumococcal Vaccine: Ped or At-Risk (1 of 2 - PPSV23) Pneumococcal Vaccine: Ped or At-Risk (1 of 2 - PPSV23) [facility] Start: 1974 COVID-19 Vaccine (#1) COVID-19 Vaccine (#1) [facility] Start: 1974 COVID-19 Vaccine (1) COVID-19 Vaccine (1) [facility] Start: 02-12-1972 History and physical examination, annual for health maintenance Wellness Visit [facility] Start: 1969 COVID-19 VACCINE (#1) COVID-19 VACCINE (#1) [facility] Start: 1969 COLON CANCER SCREENING ANNUAL FOBT COLON CANCER SCREENING ANNUAL FOBT [facility] Start: 1969 HEPATITIS B (1 of 3 - 3-dose series) HEPATITIS B (1 of 3 - 3-dose series) [facility] Start: 1969 Hepatitis B Vaccine (1 of 3 - 3-dose series) Hepatitis B Vaccine (1 of 3 - 3-dose series) [facility] Start: 1969 Prostate specific antigen measurement PSA Level [facility] Start: 1969 Tetanus vaccination Tetanus: Every 10yrs [facility] Alanine aminotransfe rase [Enzymatic activity/volume] in Serum or Plasma [facility] Albumin [Mass/volume ] in Serum or Plasma [facility] Alkaline phosphatase [Enzymatic activity/volume] in Serum or Plasma [facility] Amphetamines [Presen ce] in Urine by Screen method >1000 ng/mL [facility] Anion gap in Serum o r Plasma [facility] Benzodiazepine measurement, urine [facility] Bilirubin, total measurement [facility] Bilirubin.direct [Mass/volume] in Serum or Plasma [facility] BUN/Creatinine ratio [facility] Calcium [Mass/volume ] in Serum or Plasma [facility] Carbon dioxide, tota l [Moles/volume] in Central venous blood [facility] End: 07-30-2019 Cardiac Event Monitor - 30 Day Cardiac Event Monitor - 30 Day Cardiac Services Routine Bradycardia with 41-50 beats per minute 1 Occurrences starting 07/30/2019 until 07/30/2019 [facility] Comment on above: 1 Occurrences starting 07/30/2019 until 07/30/2019 Cardiac Event Monito r - 30 Day Cardiac Event Monitor - 30 Day Cardiac Services Routine Bradycardia with 41-50 beats per minute 07/30/2019 12:24 PM EST [facility] Cocaine measurement, urine [facility] COLOGUARD COLOGUARD Lab Ro utine Screening for colon cancer Ordered: 04/19/2023 [facility] Work Phone: Comment on above: Ordered: 04/19/2023 COLOGUARD COLOGUARD Lab Ro utine Screening for colon cancer Ordered: 04/04/2024 [facility] Work Phone: Comment on above: Ordered: 04/04/2024 Creatinine [Mass/vol ume] in Serum or Plasma [facility] End: 07-12-2019 Echocardiogram complete (M-Mode/2D) Echocardiogram complete (M-Mode/2D) Echocardiography Routine SVT (supraventricular tachycardia) ([facility]) 1 Occurrences starting 07/12/2019 until 07/12/2019 [facility] Comment on above: 1 Occurrences starting 07/12/2019 until 07/12/2019 Echocardiogram compl ete (M-Mode/2D) Echocardiogram complete (M-Mode/2D) Echocardiography Routine SVT (supraventricular tachycardia) ([facility]) 07/12/2019 8:28 AM EDT [facility] Erythrocyte mean corpuscular volume determination [facility] fentaNYL [Presence] in Urine by Screen method [facility] Glucose [Mass/volume ] in Serum or Plasma [facility] Hematocrit [Volume Fraction] of Blood [facility] Hemoglobin [Mass/vol ume] in Blood [facility] End: 07-12-2019 Holter Monitor Complete - 24 Hour Holter Monitor Complete - 24 Hour Cardiac Services Routine SVT (supraventricular tachycardia) ([facility]) 1 Occurrences starting 07/12/2019 until 07/12/2019 [facility] Comment on above: 1 Occurrences starting 07/12/2019 until 07/12/2019 Holter Monitor Compl ete - 24 Hour Holter Monitor Complete - 24 Hour Cardiac Services Routine SVT (supraventricular tachycardia) ([facility]) 07/12/2019 9:55 AM EDT [facility] INR in Blood by Coagulation assay [facility] INR in Blood by Coagulation assay [facility] Leukocytes [#/volume ] in Blood [facility] Magnesium measurement [facility] Mean corpuscular hemoglobin concentration determination [facility] Mean corpuscular hemoglobin determination [facility] Measurement of renal function [facility] Methadone measuremen t, urine [facility] Neutrophil count [facility] Neutrophil percent differential count [facility] Oxygen Therapy Nasal Cannula; Liters Per Minute: 2.0 LPM; RT may modify oxygen administration per policy: Yes Maintain O2 sats > 92% Oxygen Therapy Nasal Cannula; Liters Per Minute: 2.0 LPM; RT may modify oxygen administration per policy: Yes Maintain O2 sats > 92% Respiratory Care Routine As Needed until discontinued starting 08/29/2019 [facility] Comment on above: As Needed until discontinued starting Patient Education Alcohol Withdr awal: What to Expect ED Withdrawal Alcohol [facility] Work Phone: Patient referral [facility] Work Phone: Phencyclidine [Prese nce] in Urine [facility] Platelets [#/volume] in Blood [facility] End: 08-29-2019 POCT glucose - for diabetic patients POCT glucose - for diabetic patients Point of Care Testing Routine One Time for 1 Occurrences starting 08/29/2019 until 08/29/2019 [facility] Comment on above: One Time for 1 Occurrences starting 08/19 until 08/29/2019 Potassium measurement [facility] Pulse oximetry, continuous Pulse oximetry, continuous Respiratory Care Routine Continuous until discontinued starting 08/29/2019 [facility] Comment on above: Continuous until discontinued starting 10/30/2018 Red blood cell count [facility] Red cell distributio n width determination [facility] Serum chloride measurement [facility] Sodium measurement [facility] Standard ECG [facility] Comment on above: As Needed until discontinued starting Total protein measurement [facility] End: 07-24-2019 Troponin I.cardiac [Mass/Vol] Troponin I Lab Timed Now Then Every 3hr for 2 Occurrences starting 07/24/2019 until 07/24/2019 [employer] Comment on above: Now Then Every 3hr for 2 Occurrences sta rting 07/24/2019 until 07/24/2019 Troponin T.cardiac [Mass/volume] in Serum or Plasma by High sensitivity method [facility] Troponin T.cardiac [Mass/volume] in Serum or Plasma by High sensitivity method [facility] Urea nitrogen [Mass/volume] in Serum or Plasma [facility] Urine cannabinoid measurement [facility] Urine opiate measurement [facility] Immunizations Immunization Date Immunization Notes Care Provider Mecca cortés 08-20-2019 influenza virus vaccine, unspecified formulation [facility] 12-09-2014 tetanus toxoid, reduced diphtheria toxoid, and acellular pertussis vaccine, adsorbed 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 2021 Medicaid [id number] 2021 Unknown [id number] 2019 Medicaid 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 1969 Unknown [id number] 1969 Unknown [id number] 1969 Unknown [id number] 1969 Unknown [id number] Medicaid [id number] Unknown [id number] Unknown [id number] Unknown [id number] Unknown [id number] Unknown [id number] Unknown [id number] Social History Date Type Detail Facility Tobacco smoking stat us IDIS Unknown if ever smoked [facility] Start: 1970 Sex Assigned At Not on file [facility] Start: 07-04-2019 End: 02-15-2025 Tobacco smoking status NHIS Current every day smoker [facility] History of tobacco use Cigarette Smoker G [facility] Start: 07-04-2019 End: 03-19-2024 Cigarettes smoked current (pack per day) - Reported [facility] Start: 07-04-2019 End: 07-26-2024 Alcohol intake Ex-drinker (finding) [facility] Start: 07-04-2019 History SDOH Alcohol Frequency 5 [facility] Start: 07-04-2019 Tobacco Comment interesting in quitting 07/04/19 [facility] Start: 07-04-2019 Alcohol Comment 1/5 of vodka daily- reports last drink was 15 days ago 07/04/19 [facility] Start: 08-09-2019 Tobacco Comment interesting in quitting 07/04/19spring [facility] Start: 07-24-2019 Alcohol Comment 1/5 of vodka daily- reports last drink was 07/04/19 [facility] Start: 04-27-2020 Tobacco smoking status NHIS Former smoker [facility] Start: 04-27-2020 End: 04-19-2023 Tobacco use and exposure Never used [facility] Start: 12-31-2019 Tobacco Comment quit 2 weeks ago 12/31/19 [facility] Start: 11-21-2019 Alcohol Comment sober for 5 months 11/21/19 [facility] Start: 12-22-2020 Alcohol intake Current drinker of alcohol (finding) [facility] Exposure to SARS-CoV -2 (event) Not sure [facility] Exposure to SARS-CoV -2 (event) Yes [facility] Start: 1970 End: 03-19-2024 Sex Assigned At [facility] Start: 02-16-2023 Alcohol Comment 41 days sober [facility] Adult Depression Screening Assessment 0 [facility] Start: 04-19-2023 Tobacco Comment 3-5 cigs currently [facility] Start: 12-17-2023 End: 12-18-2023 Tobacco smoking status NHIS Unknown if ever smoked [facility] Start: 1970 Sex Assigned At Male [facility] Start: 07-21-2024 Gender identity Identifies as male gender (finding) [facility] Start: 07-21-2024 Sexual orientation Heterosexual (finding) [facility] Medical Equipment Procedure Code Equipment Code Equipment Original Text Equi pment Identifier Dates Procedure Implant ([id number]) Goals Date Patient Goal Desired Activity /State Functional Status Date Assessment Result Facility 02-18-2025 Functional status Ambulates;Up ad janeth [facility] Work Phone: 12-19-[address] [facility] Work Phone: Mental Status Date Assessment Result Facility 02-18-2025 Cognitive function Voice/Name [facility] Work Phone: 02-17-2025 Cognitive function Appropriate;Cooperativ e [facility] Work Phone: 12-19-2023 Cognitive function Patient Behavior Anxio us [facility] Work Phone: 12-18-2023 Cognitive function Voice/Name [facility] Work Phone: Clinical Notes 09-07-2021 to 02-18-2025 Note Date & Type Note Facility 02-18-2025 Discharge summary [facility] 02-18-2025 Note [facility] Medical Records Department [address] [place] [address] Discharge Summary 02/18/25 1244 MR#: [id number] Acct: [id number] Name: SLOAN HARVEY Rep #: [id number] : 1970 55 From: Tammy Cespedes MD PCP: Dr. Peggy Nicole DO Status:DIS IN Location: MS3 LL387-5 Providers Date of Admission: 02/15/25 Date of Discharge: 02/18/25 Primary Care Physician: Dr. Peggy Nicole DO Reason For Visit: ALCOHOL DETOXIFICATION Diagnosis Discharge Diagnosis (1) Polysubstance abuse: Status: Acute Code(s): F19.10 - Other psychoactive substance abuse, uncomplicated Medications at Discharge Home Medications amlodipine 5 mg tablet 5 mg PO DAILY 12/17/23 buspirone 10 mg tablet 10 mg PO TID 12/17/23 duloxetine 60 mg capsule,delayed release 60 mg PO DAILY 12/17/23 hydroxyzine pamoate 25 mg capsule 50 mg PO TID PRN anxiety 12/17/23 ibuprofen 600 mg tablet 600 mg PO TID PRN pain 12/17/23 duloxetine 30 mg capsule,delayed release 30 mg PO QHS 02/15/25 Hospital Course Operations None Procedures None Summary of Care Provided Minutes Spent on Discharge: 45 Hospital Course: Patient is a 55-year-old male with past medical history as outlined was admitted through the ED on 02/15/2025 for alcohol detox. Patient has a history of alcohol use disorder and his last drink was about an hour prior to admission and usually drank about 1/5 of vodka every day. He also smokes 1/2 pack of cigarettes every day. Review of systems otherwise negative. He was admitted to the manage for acute alcohol withdrawal. He was placed on alcohol withdrawal protocol with lorazepam. Due to his elevated liver enzymes, he was not placed on phenobarbital. He tolerated the 3-day detox process and remained stable. Liver enzymes were elevated but this was likely due to his chronic alcohol use. He had a liver ultrasound done prior to admission which showed hepatomegaly and hepatic steatosis and no acute cholecystitis. He was discharged home on 02/18/2025. He is to follow- up on outpatient basis to be placed in a sober living facility. Patient seen and examined prior to discharge. He had no active complaints and had an uneventful night. Review of systems otherwise negative. Labs and vitals reviewed. Home medication reviewed and reconciled. Physical Exam Const alert, oriented x3 and no apparent distress General Appearance: cooperative and comfortable Orientation / Consciousness: awake Exam Limitations: no limitations HEENT normocephalic, head/scalp atraumatic, hearing grossly normal bilaterally, moist oral mucous membranes and oropharynx normal Mouth: oral and palatal mucosa normal Eyes PERRL, EOMs intact bilaterally and conjunctivae normal Neck no lymphadenopathy and supple Resp normal respiratory effort, no use of accessory muscles and clear to auscultation bilaterally Cardio regular rate, regular rhythm, S1 normal heart sound, S2 normal heart sound and no murmurs GI normal to inspection, nondistended, normoactive bowel sounds, soft to palpation, non-tender and non- distended Extremity normal to inspection, full ROM and no clubbing, cyanosis or edema Skin no rashes or lesions noted Neuro oriented x3, CN's II-XII intact bilaterally, moves all extremities and no focal motor deficits Sensorium / Orientation: awake and alert Motor Exam: strength 5/5 throughout Psych affect normal Medical Records Data Homelessness:: Unsheltered Weight / BMI Weight Weight: 247 lb 9.266 oz Body Mass Index (BMI) 35.5 ABG / Lab / Microbiology Data 02/16/25 05:32 02/18/25 05:50 Laboratory: Laboratory Results - last 24 hr 02/18/25 05:50: Sodium 138, Potassium 3.7, Chloride 104, Carbon Dioxide 21.6, Anion Gap 13, BUN 10, Creatinine 0.86, Estim Creat Clear Calc 120.36, Est GFR (MDRD) Non-Af 102, BUN/Creatinine Ratio 11.8, Glucose 105 H, Calcium 9.4, Total Bilirubin 0.64, AST 132 H, ALT 120 H, Alkaline Phosphatase 129, Total Protein 7.0, Albumin 4.1, Globulin 2.9, Albumin/Globulin Ratio 1.4 Radiography Diagnostic Testing: Radiology Impression Abdomen Ultrasound 02/18/25 05:55 IMPRESSION: Hepatomegaly and hepatic steatosis. No acute cholecystitis. Reading Location: [id number] D/C Instructions Discharge Diet: Low fat / Low cholesterol Discharge Activity: Return to Normal Activity Weight Bearing Status: Weight bearing as tolerated Call your doctor if you observe: Fever of 101 or Higher, Shortness of breath, Dizziness, Chest pain and Increased palpitations (irregular heartbeat) DC O2, CPAP, BIPAP Needs Home O2 Discharge instructions: No DC home with Oxygen: No Meaningful Use Info Meaningful Use Meaningful Use Diagnoses (Choose all that apply): None applicable Ischemic Stroke Stati (more content not included)... [facility] 02-17-2025 Progress note Note Date/Time February 17, 2025 4:09p m [facility] Medical Records Department [address] [place] [address] Progress Note - Hospitalist 02/17/25 1606 MR#: [id number] Acct: [id number] Name: SLOAN HARVEY Rep #:[id number] : 1970 55 From: Vu Dumont PCP: Dr. Peggy Nicole, DO Status:ADM IN [place] [facility] [place] Reason for Visit Reason for Visit: Diagnoses Other psychoactive substance abuse, uncomplicated (02/15/25) Objective Data Objective Data Vital Signs: Vital Signs Temp Pulse Resp BP Pulse Ox O2 Del Method 97.9 F 78 18 140/90 H 98 Room Air 02/17/25 14:08 02/17/25 14:08 02/17/25 14:08 02/17/25 14:08 02/17/25 14:08 02/17/25 14:08 Oxygen Delivery Method Room Air Weight: 247 lb 9.266 oz Body Mass Index (BMI) 35.5 Intake & Output: Intake and Output for Last 24 Hours 02/15/25 02/16/25 02/17/25 23:59 23:59 23:59 Intake Total 1200 / 1200 400 / 400 Balance 1200 / 1200 400 / 400 Lab / Micro Data 02/16/25 05:32 02/17/25 06:15 Labs: Laboratory Results - last 24 hr 02/17/25 06:15: Sodium 139, Potassium 3.9, Chloride 102, Carbon Dioxide 25.8, Anion Gap 11, BUN 12, Creatinine 0.90, Estim Creat Clear Calc 115.01, Est GFR (MDRD) Non-Af 100, BUN/Creatinine Ratio 13.5, Glucose 102 H, Calcium 9.4, Total Bilirubin 0.74, AST 101 H, ALT 100 H, Alkaline Phosphatase 130 H, Total Protein 7.4, Albumin 4.3, Globulin 3.1, Albumin/Globulin Ratio 1.4 Social Homelessness:: Unsheltered Physical Exam Narrative Patient is feeling better than yesterday. Less tremor but still has anxiety. Patient has been drinking alcohol heavily since age of 10. He drinks 1/5 of a bottle of vodka. He has intermittent history of drinking and quit when he was 49 and then relapsed. He again was sober and then started in September 2024. Denies opioid substance use currently. Uses marijuana and used amphetamine in the past. Patient having anxiety, tremors Physical exam General: Alert, Oriented x3, Cooperative. Obesity grade 235.5 kg/m? HEENT: Atraumatic, PERRLA, EOMI, Normocephalic. Oral: No Gingival or Mucosal Lesions/ Ulcerations Neck: Supple, No JVD, Negative Carotid Bruits Chest wall/Lungs: Air entry diminished in bilateral lung bases. No crepitation/rhonchi Cardiovascular: Regular rate and rhythm, Normal S1,S2, No M/G/R Abdomen: Bowel Sounds Present, Soft, Non Tender, Non-Distended : No dysuria. No renal angle tenderness. No suprapubic tenderness. Extremities: No edema, Capillary Refill Less than 3 Seconds Skin: No rashes, No breakdown Musculoskeletal: No Tenderness to Palpation of Joints or Extremities Neurological: Cranial nerves II-XII grossly intact, DTR 2+/4. No acute focal neurological deficit. Psych/Mental Status: Flat affect. Assessment & Plan Assessment/Plan (1) Polysubstance abuse: PLAN: Plan 55-year-old male with history of polysubstance abuse, anxiety, presents to the hospital for desire for inpatient detoxification #Alcohol use disorder - Monitoring based on [facility] protocol - Symptom management using gabapentin, dicyclomine, hydroxyzine, Zofran - Thiamine supplementation - Lorazepam taper 02/16: Patient is alcoholic hepatitis therefore not candidate for phenobarbital. I agree with lorazepam #Nicotine dependence - Nicotine patches ordered #Acute on chronic alcoholic hepatitis - AST ALT both are elevated INR 1.1. AST 133, ALT 101. ALP normal 02/17: AST 101, ALT 100, improving. RUQ sonogram ordered for tomorrow a.m. total bilirubin was 1.43, today normal. # Depression - Continue home medications # HTN - Continue amlodipine # DVT - Low risk - Encourage mobilization # CODE -Full code Laboratory Results 02/17/25 06:15: Sodium 139, Potassium 3.9, Chloride 102, Carbon Dioxide 25.8, Anion Gap 11, BUN 12, Creatinine 0.90, Estim Creat Clear Calc 115.01, Est GFR (MDRD) Non-Af 100, BUN/Creatinine Ratio 13.5, Glucose 102 H, Calcium 9.4, Total Bilirubin 0.74, AST 101 H, ALT 100 H, Alkaline Phosphatase 130 H, Total Protein 7.4, Albumin 4.3, Globulin 3.1, Albumin/Globulin Ratio 1.4 Charges/Coding Visit Charges Inpatient E&M: 67578 Subs Hosp L2 02/17/25 1609 <Electronically signed by uV Jean MD> Cosigner Signature (if applicable): CC: ~ Signed [facility] Work Phone: 1(307) 915-344206-01-2025 Progress note [facility] Medical Records Department [address] [place] [address] Progress Note - Hospitalist 02/17/25 1606 MR#: [id number] Acct: [id number] Name: SLOAN HARVEY Rep #:[id number] : 1970 55 From: Vu Dumont PCP: Dr. Peggy Nicole, DO Status:ADM IN Location: [place] [address] Reason for Visit Reason for Visit: Diagnoses Other psychoactive substance abuse, uncomplicated (02/15/25) Objective Data Objective Data Vital Signs: Vital Signs Temp Pulse Resp BP Pulse Ox O2 Del Method 97.9 F 78 18 140/90 H 98 Room Air 02/17/25 14:08 02/17/25 14:08 02/17/25 14:08 02/17/25 14:08 02/17/25 14:08 02/17/25 14:08 Oxygen Delivery Method Room Air Weight: 247 lb 9.266 oz Body Mass Index (BMI) 35.5 Intake & Output: Intake and Output for Last 24 Hours 02/15/25 02/16/25 02/17/25 23:59 23:59 23:59 Intake Total 1200 / 1200 400 / 400 Balance 1200 / 1200 400 / 400 Lab / Micro Data 02/16/25 05:32 02/17/25 06:15 Labs: Laboratory Results - last 24 hr 02/17/25 06:15: Sodium 139, Potassium 3.9, Chloride 102, Carbon Dioxide 25.8, Anion Gap 11, BUN 12,Creatinine 0.90, Estim Creat Clear Calc 115.01, Est GFR (MDRD) Non-Af 100, BUN/Creatinine Ratio 13.5, Glucose 102 H, Calcium 9.4, Total Bilirubin 0.74, AST 101 H, ALT 100 H, Alkaline Phosphatase 130 H, Total Protein 7.4, Albumin 4.3, Globulin 3.1, Albumin/Globulin Ratio 1.4 Social Homelessness:: Unsheltered Physical Exam Narrative Patient is feeling better than yesterday. Less tremor but still has anxiety. Patient has been drinking alcohol heavily since age of 10. He drinks 1/5 of a bottle of vodka. He has intermittent history of drinking and quit when he was 49 and then relapsed. He again was sober and then started in September 2024. Denies opioid substance use currently. Uses marijuana and used amphetamine in the past. Patient having anxiety, tremors Physical exam General: Alert, Oriented x3, Cooperative. Obesity grade 235.5 kg/m? HEENT: Atraumatic, PERRLA, EOMI, Normocephalic. Oral: No Gingival or Mucosal Lesions/ Ulcerations Neck: Supple, No JVD, Negative Carotid Bruits Chest wall/Lungs: Air entry diminished in bilateral lung bases. No crepitation/rhonchi Cardiovascular: Regular rate and rhythm, Normal S1,S2, No M/G/R Abdomen: Bowel Sounds Present, Soft, Non Tender, Non-Distended : No dysuria. No renal angle tenderness. No suprapubic tenderness. Extremities: No edema, Capillary Refill Less than 3 Seconds Skin: No rashes, No breakdown Musculoskeletal: No Tenderness to Palpation of Joints or Extremities Neurological: Cranial nerves II-XII grossly intact, DTR 2+/4. No acute focal neurological deficit. Psych/Mental Status: Flat affect. Assessment & Plan Assessment/Plan (1) Polysubstance abuse: PLAN: Plan 55-year-old male with history of polysubstance abuse, anxiety, presents to the hospital for desire for inpatient detoxification #Alcohol use disorder - Monitoring based on [facility] protocol - Symptom management using gabapentin, dicyclomine, hydroxyzine, Zofran - Thiamine supplementation - Lorazepam taper 02/16: Patient is alcoholic hepatitis therefore not candidate for phenobarbital. I agree with lorazepam #Nicotine dependence - Nicotine patches ordered #Acute on chronic alcoholic hepatitis - AST ALT both are elevated INR 1.1. AST 133, ALT 101. ALP normal 02/17: AST 101, ALT 100, improving. RUQ sonogram ordered for tomorrow a.m. total bilirubin was 1.43, today normal. # Depression - Continue home medications # HTN - Continue amlodipine # DVT - Low risk - Encourage mobilization # CODE -Full code Laboratory Results 02/17/25 06:15: Sodium 139, Potassium 3.9, Chloride 102, Carbon Dioxide 25.8, Anion Gap 11, BUN 12,Creatinine 0.90, Estim Creat Clear Calc 115.01, Est GFR (MDRD) Non-Af 100, BUN/Creatinine Ratio 13.5, Glucose 102 H, Calcium 9.4, Total Bilirubin 0.74, AST 101 H, ALT 100 H, Alkaline Phosphatase 130 H, Total Protein 7.4, Albumin 4.3, Globulin 3.1, Albumin/Globulin Ratio 1.4 Charges/Coding Visit Charges Inpatient E&M: 12659 Subs Hosp L2 02/17/25 1609 Cosigner Signature (if applicable): CC: ~ Signed [facility]05-31-2025 Progress note Author Vu Jean [facility] Note Date/Time February 16, 2025 5:11p m [facility] Medical Records Department [address] [place] [address] Progress Note - Hospitalist 02/16/25 0749 MR#: [id number] Acct: [id number] Name: SLOAN HARVEY Rep #:[id number] : 1970 55 From: Vu Dumont PCP: Dr. Peggy Nicole, DO Status:ADM IN [facility] Reason for Visit Reason for Visit: Diagnoses Other psychoactive substance abuse, uncomplicated (02/15/25) Objective Data Objective Data Vital Signs: Vital Signs Temp Pulse Resp BP Pulse Ox O2 Del Method 98.2 F 71 18 141/94 H 96 Room Air 02/16/25 07:48 02/16/25 07:48 02/16/25 07:48 02/16/25 07:48 02/16/25 07:48 02/16/25 07:48 Oxygen Delivery Method Room Air Weight: 247 lb 9.266 oz Body Mass Index (BMI) 35.5 Intake & Output: Intake and Output for Last 24 Hours 02/14/25 02/15/25 02/16/25 23:59 23:59 23:59 Intake Total 600 / 600 Balance 600 / 600 Lab / Micro Data 02/16/25 05:32 02/16/25 05:32 Labs: Laboratory Results - last 24 hr 02/15/25 15:55: WBC 6.9, RBC 4.82, Hgb 14.8, Hct 42.9, MCV 89.0, MCH 30.7, MCHC 34.5, RDW Std Deviation 40.0, RDW Coeff of Jacy 12.1, Plt Count 216, MPV 9.1, Immature Gran % (Auto) 0.300, Neut % (Auto) 66.2, Lymph % (Auto) 23.7, [place] % (Auto) 6.9, Eos % (Auto) 1.9, Baso % (Auto) 1.0, Absolute Neuts (auto) 4.6, Absolute Lymphs (auto) 1.64, Nucleated RBC % 0, Sodium 135, Potassium 3.3, Chloride 96 L, Carbon Dioxide 20.7 L, Anion Gap 18 H, BUN 17, Creatinine 1.19, Estim Creat Clear Calc 87.20, Est GFR (MDRD) Non-Af 72, BUN/Creatinine Ratio 14.6, Glucose 142 H, Calcium 9.3, Total Bilirubin 1.02, AST 153 H, ALT 115 H, Alkaline Phosphatase 112, Troponin T High Sens 15, Total Protein 7.8, Albumin 4.5, Globulin 3.2, Albumin/Globulin Ratio 1.4, Ethyl Alcohol 97.6 H 02/15/25 17:05: Urine Opiates Screen NEGATIVE, U Buprenorphine Qual NEGATIVE, UrOxycodone Screen NEGATIVE, Urine Methadone Screen NEGATIVE, Urine Fentanyl Screen NEGATIVE, Ur Barbiturates Screen NEGATIVE, Ur Phencyclidine Scrn NEGATIVE, Ur Amphetamines Screen NEGATIVE, U Benzodiazepines Scrn NEGATIVE, Urine Cocaine Screen NEGATIVE, U Cannabinoids Screen NEGATIVE 02/15/25 17:57: PT 14.6, INR 1.1, Troponin T Hi Sens 2 Hr 14 02/15/25 20:20: Troponin T Hi Sens 4Hr 14 02/16/25 05:32: WBC 4.8, RBC 4.61, Hgb 14.3, Hct 41.7, MCV 90.5, MCH 31.0, MCHC 34.3, RDW Std Deviation 40.1, RDW Coeff of Jacy 12.1, Plt Count 189, MPV 9.4, Immature Gran % (Auto) 0.200, Neut % (Auto) 57.0, Lymph % (Auto) 27.9, [place] % (Auto) 10.4 H, Eos % (Auto) 3.5, Baso % (Auto) 1.0, Absolute Neuts (auto) 2.7, Absolute Lymphs (auto) 1.34, Nucleated RBC % 0 Physical Exam Narrative Patient has been drinking alcohol heavily since age of 10. He drinks 1/5 of a bottle of vodka. He has intermittent history of drinking and quit when he was 49 and then relapsed. He again was sober and then started in September 2024. Denies opioid substance use currently. Uses marijuana and used amphetamine in the past. Patient having anxiety, tremors Physical exam General: Alert, Oriented x3, Cooperative. Obesity grade 235.5 kg/m? HEENT: Atraumatic, PERRLA, EOMI, Normocephalic. Oral: No Gingival or Mucosal Lesions/ Ulcerations Neck: Supple, No JVD, Negative Carotid Bruits Chest wall/Lungs: Air entry diminished in bilateral lung bases. No crepitation/rhonchi Cardiovascular: Regular rate and rhythm, Normal S1,S2, No M/G/R Abdomen: Bowel Sounds Present, Soft, Non Tender, Non-Distended : No dysuria. No renal angle tenderness. No suprapubic tenderness. Extremities: No edema, Capillary Refill Less than 3 Seconds Skin: No rashes, No breakdown Musculoskeletal: No Tenderness to Palpation of Joints or Extremities Neurological: Cranial nerves II-XII grossly intact, DTR 2+/4. No acute focal neurological deficit. Psych/Mental Status: Flat affect. Assessment & Plan Assessment/Plan (1) Polysubstance abuse: PLAN: Plan 55-year-old male with history of polysubstance abuse, anxiety, presents to the hospital for desire for inpatient detoxification #Alcohol use disorder - Monitoring based on [facility] protocol - Symptom management using gabapentin, dicyclomine, hydroxyzine, Zofran - Thiamine supplementation - Lorazepam taper 02/16: Patient is alcoholic hepatitis therefore not candidate for phenobarbital. I agree with lorazepam #Nicotine dependence - Nicotine patches ordered #Acute on chronic alcoholic hepatitis - AST ALT both are elevated INR 1.1. AST 133, ALT 101. ALP normal # Depression - Continue home medications # HTN - Continue amlodipine # DVT - Low risk - Encourage mobilization # CODE -Full code Charges/Coding Visit Charges Inpatient E&M: 36522 Subs Hosp L2 02/16/25 1711 <Electronically signed by Vu Jean MD> Cosigner Signature (if applicable): CC: ~ Signed [facility] Work Phone: 1(726) 460-966005-31-2025 Progress note [facility] Medical Records Department [address] [place] [address] Progress Note - Hospitalist 02/16/25 0749 MR#: [id number] Acct: [id number] Name: SLOAN HARVEY Rep #:[id number] : 1970 55 From: Vu Dumont PCP: Dr. Peggy Nicole, DO Status:ADM IN Location: [place] [address]-1 Reason for Visit Reason for Visit: Diagnoses Other psychoactive substance abuse, uncomplicated (02/15/25) Objective Data Objective Data Vital Signs: Vital Signs Temp Pulse Resp BP Pulse Ox O2 Del Method 98.2 F 71 18 141/94 H 96 Room Air 02/16/25 07:48 02/16/25 07:48 02/16/25 07:48 02/16/25 07:48 02/16/25 07:48 02/16/25 07:48 Oxygen Delivery Method Room Air Weight: 247 lb 9.266 oz Body Mass Index (BMI) 35.5 Intake & Output: Intake and Output for Last 24 Hours 02/14/25 02/15/25 02/16/25 23:59 23:59 23:59 Intake Total 600 / 600 Balance 600 / 600 Lab / Micro Data 02/16/25 05:32 02/16/25 05:32 Labs: Laboratory Results - last 24 hr 02/15/25 15:55: WBC 6.9, RBC 4.82, Hgb 14.8, Hct 42.9, MCV 89.0, MCH 30.7, MCHC 34.5, RDW Std Deviation 40.0, RDW Coeff of Jacy 12.1, Plt Count 216, MPV 9.1, Immature Gran % (Auto) 0.300, Neut % (Auto) 66.2, Lymph % (Auto) 23.7, [place] % (Auto) 6.9, Eos % (Auto) 1.9, Baso % (Auto) 1.0, Absolute Neuts (auto) 4.6, Absolute Lymphs (auto) 1.64, Nucleated RBC % 0, Sodium 135, Potassium 3.3, Chloride 96 L, Carbon Dioxide 20.7 L, Anion Gap 18 H, BUN 17, Creatinine 1.19, Estim Creat Clear Calc 87.20, Est GFR (MDRD) Non-Af 72, BUN/Creatinine Ratio 14.6, Glucose 142 H, Calcium 9.3, Total Bilirubin 1.02, AST 153 H, ALT 115 H, Alkaline Phosphatase 112, Troponin T High Sens 15, Total Protein 7.8, Albumin 4. 5, Globulin 3.2, Albumin/Globulin Ratio 1.4, Ethyl Alcohol 97.6 H 02/15/25 17:05: Urine Opiates Screen NEGATIVE, U Buprenorphine Qual NEGATIVE, UrOxycodone Screen NEGATIVE, Urine Methadone Screen NEGATIVE, Urine Fentanyl Screen NEGATIVE, Ur Barbiturates Screen NEGATIVE, Ur Phencyclidine Scrn NEGATIVE, Ur Amphetamines Screen NEGATIVE, U Benzodiazepines Scrn NEGATIVE, Urine Cocaine Screen NEGATIVE, U Cannabinoids Screen NEGATIVE 02/15/25 17:57: PT 14.6, INR 1.1, Troponin T Hi Sens 2 Hr 14 02/15/25 20:20: Troponin T Hi Sens 4Hr 14 02/16/25 05:32: WBC 4.8, RBC 4.61, Hgb 14.3, Hct 41.7, MCV 90.5, MCH 31.0, MCHC 34.3, RDW Std Deviation 40.1, RDW Coeff of Jacy 12.1, Plt Count 189, MPV 9.4, Immature Gran % (Auto) 0.200, Neut % (Auto) 57.0, Lymph % (Auto) 27.9, [place] % (Auto) 10.4 H, Eos % (Auto) 3.5, Baso % (Auto) 1.0, Absolute Neuts (auto) 2.7, Absolute Lymphs (auto) 1.34, Nucleated RBC % 0 Physical Exam Narrative Patient has been drinking alcohol heavily since age of 10. He drinks 1/5 of a bottle of vodka. He has intermittent history of drinking and quit when he was 49 and then relapsed. He again was sober and then started in September 2024. Denies opioid substance use currently. Uses marijuana and used amphetamine in the past. Patient having anxiety, tremors Physical exam General: Alert, Oriented x3, Cooperative. Obesity grade 235.5 kg/m? HEENT: Atraumatic, PERRLA, EOMI, Normocephalic. Oral: No Gingival or Mucosal Lesions/ Ulcerations Neck: Supple, No JVD, Negative Carotid Bruits Chest wall/Lungs: Air entry diminished in bilateral lung bases. No crepitation/rhonchi Cardiovascular: Regular rate and rhythm, Normal S1,S2, No M/G/R Abdomen: Bowel Sounds Present, Soft, Non Tender, Non-Distended : No dysuria. No renal angle tenderness. No suprapubic tenderness. Extremities: No edema, Capillary Refill Less than 3 Seconds Skin: No rashes, No breakdown Musculoskeletal: No Tenderness to Palpation of Joints or Extremities Neurological: Cranial nerves II-XII grossly intact, DTR 2+/4. No acute focal neurological deficit. Psych/Mental Status: Flat affect. Assessment & Plan Assessment/Plan (1) Polysubstance abuse: PLAN: Plan 55-year-old male with history of polysubstance abuse, anxiety, presents to the hospital for desire for inpatient detoxification #Alcohol use disorder - Monitoring based on [facility] protocol - Symptom management using gabapentin, dicyclomine, hydroxyzine, Zofran - Thiamine supplementation - Lorazepam taper 02/16: Patient is alcoholic hepatitis therefore not candidate for phenobarbital. I agree with lorazepam #Nicotine dependence - Nicotine patches ordered #Acute on chronic alcoholic hepatitis - AST ALT both are elevated INR 1.1. AST 133, ALT 101. ALP normal # Depression - Continue home medications # HTN - Continue amlodipine # DVT - Low risk - Encourage mobilization # CODE -Full code Charges/Coding Visit Charges Inpatient E&M: 38811 Subs Hosp L2 02/16/25 1711 Cosigner Signature (if applicable): CC: ~ Signed [facility]05-31-2025 Discharge summary Author Kris Wood [facility] Note Date/Time February 15, 2025 11:03 pm [facility] Medical Records Department [address] [place] [address] Emergency Department Summary 02/15/25 MR#: [id number] Acct: [id number] Name: SLOAN HARVEY Rep #:[id number] : 1970 55 From: Kris Wood DO PCP: Dr. Peggy Nicole DO Status:ADM IN Location: [place] [address]-1 HPI History of Present Illness Chief Complaint: Substance Abuse Detail of Chief Complaint: Requesting detox from alcohol Informant: patient Narrative Narrative: Patient presents to the emergency department requesting detox from alcohol. Patient states that he was admitted about a year and a half ago for same and haddone relatively well. Patient states that he relapsed for the first time in September of this year and had been staying in a sober home. Patient had a blowupwith him roommate yesterday and he was kicked out of this sober home. Patient states his last drink was about an hour ago. Normally he drinks about 1/5-1/5 and a half of liquor and beer combined over the course of the day. Has had intermittent nausea and vomiting. He denies blood in stool or black tarry stool. He also describes some chest pressure that he has sometimes when he drinks but not necessarily exertional. Patient has history of a ablation in 2019. No heart history otherwise. He has no stenting. He does smoke cigarettes. [facility] Medical History Anxiety Depression Hypertension Home Medications ?Medication ?Instructions ?Recorded ?Last Taken ?Type amlodipine 5 mg tablet 5 mg PO DAILY 12/17/2302/15 History buspirone 10 mg tablet 10 mg PO TID 12/17/23 History duloxetine 60 mg capsule,delayed 60 mg PO DAILY 02/15/25 History release hydroxyzine pamoate 25 mg capsule 50 mg PO TID PRN anx iety 12/17/23 02/15/25 H istory ibuprofen 600 mg tablet 600 mg PO TID PRN pain 12/1602/15/25 History duloxetine 30 mg capsule,delayed 30 mg PO QHS 02/15/25 Unknown History release Allergy/AdvReac Type Severity Reaction Status Date / Time No Known Allergies Allergy Verified 02/15/25 15:33 Family History (Updated 12/17/23 @ 16:[address] Sloan Villalobos DO) Other Alcoholism Social History (Updated 12/17/23 @ 16:[address] Sloan Villalobos DO) Smoking Status: Current every day smoker tobacco type: cigarettes Smokeless tobacco user: other substance use type: marijuana and amphetamines ROS ROS ED Review of Systems ROS Unobtainable: other Constitutional Constitutional ED: Reports lethargy; Denies chills, fever(s), sweats or weight loss Eyes Eyes: Denies blurry vision, change in vision or diplopia ENT ENT ED: Denies rhinorrhea or sore throat Cardiovascular Cardiovascular: Reports chest pain; Denies orthopnea or racing heartbeat Respiratory/Chest Respiratory/Chest: Denies cough, dyspnea, dyspnea on exertion, orthopnea or sputum Gastrointestinal Gastrointestinal: Reports nausea and vomiting; Denies abdominal pain or diarrhea Genitourinary Genitourinary ED: Denies dysuria, hematuria or urinary frequency Musculoskeletal Musculoskeletal: Denies arthralgias, back pain, myalgias or neck pain Integumentary Denies abscess, Abrasions or rash Neurologic Neurologic: Denies headache(s) or weakness Psychiatric Psychiatric: Denies anxiety, depression or suicidal thoughts Endocrine Endocrinology: Denies polydipsia, polyphagia or polyuria Hematologic/Lymphatic Hematologic/Lymphatic: Denies easy bleeding, easy bruising or lymphadenopathy Allergic/Immunologic Allergic/Immunologic ED: Denies mouth swelling, tongue swelling or urticaria EXAM Physical Exam Const Vital Signs: 02/15/25 15:33 02/15/25 16:33 02/15/25 17:00 Temperature 97.8 F Temperature Source Temporal Pulse Rate 98 94 78 Respiratory Rate 18 22 H 15 Blood Pressure 136/99 H 117/73 118/78 Blood Pressure Mean 111 87 91 Pulse Ox 100 98 96 Oxygen Delivery Method Room Air Room Air Room Air 02/15/25 17:34 Temperature 98.4 F Temperature Source Pulse Rate 78 Respiratory Rate 16 Blood Pressure 118/78 Blood Pressure Mean 91 Pulse Ox 96 Oxygen Delivery Method Positive well nourished and well developed General Appearance ED: well developed and NAD HEENT Reports TM's clear and moist mucous membranes normocephalic and atraumatic; Negative for trauma or tenderness Tympanic Membrane ED: Yes TM's clear Eyes PERRL and EOMs intact bilaterally General Eye ED: Negative for pale conjunctiva or scleral icterus Neck no lymphadenopathy, supple and no JVD General: Negative for tenderness Chest Wall inspection of chest normal and palpation of chest normal Chest: Negative for tenderness Resp normal respiratory effort and clear to auscultation bilaterally Effort and Inspection: Negative for respiratory distress or pain with movement Auscultation: Negative for rhonchi, wheezes or diminished lung sounds Cardio regular rate, regular rhythm, S1 normal heart sound, S2 normal heart sound and no murmurs Peripheral Pulses: pulses 2+ throughout GI normal to inspection, nondistended, normoactive bowel sounds, soft to palpation,non-tender, non-distended and no masses Back/Spine no CVA tenderness and no thoracic nor lumbar tenderness Extremity normal to inspection General Extremety ED: Negative for edema General Extremity: Negative for edema Neuro oriented x3, CN's II-XII intact bilaterally, no sensory deficits noted and gait normal Sensorium / Orientation: awake, alert, oriented to person, oriented to place andoriented to time Motor Exam: strength 5/5 throughout and strength abnormal Psych mental status grossly normal Skin no rashes or lesions noted and no wounds MDM MDM MDM Narrative Medical decision making narrative: Patient presents to the ER requesting detox from alcohol. Mentions that has been having some chest pressure or discomfort when he is drinking. Does not typically noted when he is not drinking. It is not exertional. He has no hearthistory. IV line established. EKG obtained arrival shows sinus rhythm with ventricular rate of [address] changes and PACs. CBC with differential shows a white count of 6.9 with hemoglobin 14.8 and platelet count of 216. Chemistries unremarkable. Glucose 142. AST was elevated 153 and ALT was 115. Alcohol was 97.6. Toxicology screen pending. Troponin was normal at 15. Discussed case with hospitalist to evaluate patient for admission for alcohol detox. I do not feel he is having acute coronary syndrome. Lab Data Attestation: I reviewed the patient's lab results. Labs: Laboratory Results - last 24 hr 02/15/25 15:55 WBC 6.9 RBC 4.82 Hgb 14.8 Hct 42.9 MCV 89.0 MCH 30.7 MCHC 34.5 RDW Std Deviation 40.0 RDW Coeff of Jacy 12.1 Plt Count 216 MPV 9.1 Immature Gran % (Auto) 0.300 Neut % (Auto) 66.2 Lymph % (Auto) 23.7 [place] % (Auto) 6.9 Eos % (Auto) 1.9 Baso % (Auto) 1.0 Absolute Neuts (auto) 4.6 Absolute Lymphs (auto) 1.64 Nucleated RBC % 0 Sodium 135 Potassium 3.3 Chloride 96 L Carbon Dioxide 20.7 L Anion Gap 18 H BUN 17 Creatinine 1.19 Estim Creat Clear Calc 87.20 Est GFR (MDRD) Non-Af 72 BUN/Creatinine Ratio 14.6 Glucose 142 H Calcium 9.3 Total Bilirubin 1.02 AST 153 H ALT 115 H Alkaline Phosphatase 112 Troponin T High Sens 15 Total Protein 7.8 Albumin 4.5 Globulin 3.2 Albumin/Globulin Ratio 1.4 Ethyl Alcohol 97.6 H EKG Initial EKG: Attestation: I personally reviewed and interpreted this EKG as follows: Comments: Sinus rhythm with ventricular rate of of 99 bpm with nonspecificST changes and PACs Prior EKG tracings: not available for review Discharge Plan Triage Chief Complaint: Substance Abuse ED Provider: Kris Wood Dx/Rx/DC Orders Clinical Impression: Alcohol intoxication, Desire for detoxification Prescriptions: No Action amlodipine 5 mg tablet 5 mg PO DAILY ibuprofen 600 mg tablet 600 mg PO TID PRN (Reason: pain) Patient Comments: PT ONLY TAKES 1-2 TIMES A DAY hydroxyzine pamoate 25 mg capsule 50 mg PO TID PRN (Reason: anxiety) duloxetine 60 mg capsule,delayed release(DR/EC) 60 mg PO DAILY buspirone 10 mg tablet 10 mg PO TID duloxetine 30 mg capsule,delayed release(DR/EC) 30 mg PO QHS Primary Care Provider: Peggy Nicole Referrals: Care Physician,No Primary [Non-Staff] - Print Language: Scottish Disposition Disposition: Acute Care Hospital [facility] What to do if you have Problems For any increased pain, shortness of breath, bleeding, nausea or vomiting, chestpain, or any unexpected problems, contact your Primary Care Provider. Call [facility] ([phone]) or report to the closest Emergency Room. Call 911 if necessary. 02/15/25 4043 <Electronically signed by Kris Wood DO> Cosigner Signature (if applicable): CC: Dr. Peggy Nicole DO ~ Signed [facility] Work Phone: [phone] 361-948605-30-2025 Discharge summary [facility] Medical Records Department [address] [place] [address] Emergency Department Summary 02/15/25 MR#: [id number] Acct: [id number] Name: SLOAN HARVEY Rep #:[id number] : 1970 55 From: Kris Wood DO PCP: Dr. Peggy Nicole, DO Status:ADM IN Location: [id number] HPI History of Present Illness Chief Complaint: Substance Abuse Detail of Chief Complaint: Requesting detox from alcohol Informant: patient Narrative Narrative: Patient presents to the emergency department requesting detox from alcohol. Patient states that he was admitted about a year and a half ago for same and haddone relatively well. Patient states that he relapsed for the first time in September of this year and had been staying in a sober home. Patient had a blowupwith him roommate yesterday and he was kicked out of this sober home. Patient states hislast drink was about an hour ago. Normally he drinks about 1/5-1/5 and a half of liquor and beer combined over the course of the day. Has had intermittent nausea and vomiting. He denies blood in stool or black tarry stool. He also describes some chest pressure that he has sometimes when he drinks but not necessarily exertional. Patient has history of a ablation in 2019. No heart history otherwise. He has no stenting. He does smoke cigarettes. [facility] Medical History Anxiety Depression Hypertension Home Medications ?Medication ?Instructions ?Recorded ?Last Taken ?Type amlodipine 5 mg tablet 5 mg PO DAILY 12/17/2302/15 History buspirone 10 mg tablet 10 mg PO TID 12/17/23 History duloxetine 60 mg capsule,delayed 60 mg PO DAILY 02/15/25 History release hydroxyzine pamoate 25 mg capsule 50 mg PO TID PRN anx iety 12/17/23 02/15/25 H istory ibuprofen 600 mg tablet 600 mg PO TID PRN pain 12/1602/15/25 History duloxetine 30 mg capsule,delayed 30 mg PO QHS 02/15/25 Unknown History release Allergy/AdvReac Type Severity Reaction Status Date / Time No Known Allergies Allergy Verified 02/15/25 15:33 Family History (Updated 12/17/23 @ 16:[address] Sloan Villalobos DO) Other Alcoholism Social History (Updated 12/17/23 @ 16:[address] Sloan Villalobos DO) Smoking Status: Current every day smoker tobacco type: cigarettes Smokeless tobacco user: other substance use type: marijuana and amphetamines ROS ROS ED Review of Systems ROS Unobtainable: other Constitutional Constitutional ED: Reports lethargy; Denies chills, fever(s), sweats or weight loss Eyes Eyes: Denies blurry vision, change in vision or diplopia ENT ENT ED: Denies rhinorrhea or sore throat Cardiovascular Cardiovascular: Reports chest pain; Denies orthopnea or racing heartbeat Respiratory/Chest Respiratory/Chest: Denies cough, dyspnea, dyspnea on exertion, orthopnea or sputum Gastrointestinal Gastrointestinal: Reports nausea and vomiting; Denies abdominal pain or diarrhea Genitourinary Genitourinary ED: Denies dysuria, hematuria or urinary frequency Musculoskeletal Musculoskeletal: Denies arthralgias, back pain, myalgias or neck pain Integumentary Denies abscess, Abrasions or rash Neurologic Neurologic: Denies headache(s) or weakness Psychiatric Psychiatric: Denies anxiety, depression or suicidal thoughts Endocrine Endocrinology: Denies polydipsia, polyphagia or polyuria Hematologic/Lymphatic Hematologic/Lymphatic: Denies easy bleeding, easy bruising or lymphadenopathy Allergic/Immunologic Allergic/Immunologic ED: Denies mouth swelling, tongue swelling or urticaria EXAM Physical Exam Const Vital Signs: 02/15/25 15:33 02/15/25 16:33 02/15/25 17:00 Temperature 97.8 F Temperature Source Temporal Pulse Rate 98 94 78 Respiratory Rate 18 22 H 15 Blood Pressure 136/99 H 117/73 118/78 Blood Pressure Mean 111 87 91 Pulse Ox 100 98 96 Oxygen Delivery Method Room Air Room Air Room Air 02/15/25 17:34 Temperature 98.4 F Temperature Source Pulse Rate 78 Respiratory Rate 16 Blood Pressure 118/78 Blood Pressure Mean 91 Pulse Ox 96 Oxygen Delivery Method Positive well nourished and well developed General Appearance ED: well developed and NAD HEENT Reports TM's clear and moist mucous membranes normocephalic and atraumatic; Negative for trauma or tenderness Tympanic Membrane ED: Yes TM's clear Eyes PERRL and EOMs intact bilaterally General Eye ED: Negative for pale conjunctiva or scleral icterus Neck no lymphadenopathy, supple and no JVD General: Negative for tenderness Chest Wall inspection of chest normal and palpation of chest normal Chest: Negative for tenderness Resp normal respiratory effort and clear to auscultation bilaterally Effort and Inspection: Negative for respiratory distress or pain with movement Auscultation: Negative for rhonchi, wheezes or diminished lung sounds Cardio regular rate, regular rhythm, S1 normal heart sound, S2 normal heart sound and no murmurs Peripheral Pulses: pulses 2+ throughout GI normal to inspection, nondistended, normoactive bowel sounds, soft to palpation,non-tender, non-distended and no masses Back/Spine no CVA tenderness and no thoracic nor lumbar tenderness Extremity normal to inspection General Extremety ED: Negative for edema General Extremity: Negative for edema Neuro oriented x3, CN's II-XII intact bilaterally, no sensory deficits noted and gait normal Sensorium / Orientation: awake, alert, oriented to person, oriented to place andoriented to time Motor Exam: strength 5/5 throughout and strength abnormal Psych mental status grossly normal Skin no rashes or lesions noted and no wounds MDM MDM MDM Narrative Medical decision making narrative: Patient presents to the ER requesting detox from alcohol. Mentions that has been having some chest pressure or discomfort when he is drinking. Does not typically noted when he is not drinking. It is not exertional. He has no hearthistory. IV line established. EKG obtained arrival shows sinus rhythmwith ventricular rate of [address] changes and PACs. CBC with differential shows a white count of 6.9 with hemoglobin 14.8 and platelet count of 216. Chemistries unremarkable. Glucose 142. AST was elevated 153 and ALT was 115. Alcohol was 97.6. Toxicology screen pending. Troponin was normal at 15. Discussed case with hospitalist to evaluate patient for admission for alcohol detox. I do not feel he is having acute coronary syndrome. Lab Data Attestation: I reviewed the patient's lab results. Labs: Laboratory Results - last 24 hr 02/15/25 15:55 WBC 6.9 RBC 4.82 Hgb 14.8 Hct 42.9 MCV 89.0 MCH 30.7 MCHC 34.5 RDW Std Deviation 40.0 RDW Coeff of Jacy 12.1 Plt Count 216 MPV 9.1 Immature Gran % (Auto) 0.300 Neut % (Auto) 66.2 Lymph % (Auto) 23.7 [place] % (Auto) 6.9 Eos % (Auto) 1.9 Baso % (Auto) 1.0 Absolute Neuts (auto) 4.6 Absolute Lymphs (auto) 1.64 Nucleated RBC % 0 Sodium 135 Potassium 3.3 Chloride 96 L Carbon Dioxide 20.7 L Anion Gap 18 H BUN 17 Creatinine 1.19 Estim Creat Clear Calc 87.20 Est GFR (MDRD) Non-Af 72 BUN/Creatinine Ratio 14.6 Glucose 142 H Calcium 9.3 Total Bilirubin 1.02 AST 153 H ALT 115 H Alkaline Phosphatase 112 Troponin T High Sens 15 Total Protein 7.8 Albumin 4.5 Globulin 3.2 Albumin/Globulin Ratio 1.4 Ethyl Alcohol 97.6 H EKG Initial EKG: Attestation: I personally reviewed and interpreted this EKG as follows: Comments: Sinus rhythm with ventricular rate of of 99 bpm with nonspecificST changes and PACs Prior EKG tracings: not available for review Discharge Plan Triage Chief Complaint: Substance Abuse ED Provider: Kris Wood Dx/Rx/DC Orders Clinical Impression: Alcohol intoxication, Desire for detoxification Prescriptions: No Action amlodipine 5 mg tablet 5 mg PO DAILY ibuprofen 600 mg tablet 600 mg PO TID PRN (Reason: pain) Patient Comments: PT ONLY TAKES 1-2 TIMES A DAY hydroxyzine pamoate 25 mg capsule 50 mg PO TID PRN (Reason: anxiety) duloxetine 60 mg capsule,delayed release(DR/EC) 60 mg PO DAILY buspirone 10 mg tablet 10 mg PO TID duloxetine 30 mg capsule,delayed release(DR/EC) 30 mg PO QHS Primary Care Provider: Peggy Nicole Referrals: Care Physician,No Primary [Non-Staff] - Print Language: Scottish Disposition Disposition: Acute Care Hospital [facility] What to do if you have Problems For any increased pain, shortness of breath, bleeding, nausea or vomiting, chestpain, or any unexpected problems, contact your Primary Care Provider. Call [facility] ([phone]) or report tothe closest Emergency Room. Call 911 if necessary. 02/15/25 2303 Cosigner Signature (if applicable): CC: Dr. Peggy Nicole, ~ Signed [facility]05-30-2025 History and physical note Author Samantha Leung [facility] Note Date/Time February 15, 2025 5:49p m [facility] Medical Records Department [address] [place] [address] H&P Exam - Hospitalist 02/15/25 1742 MR#: [id number] Acct: [id number] Name: SLOAN HARVEY Rep #:[id number] : 1970 55 From: Samantha Leung MD PCP: Dr. Peggy Nicole DO Status:REG ER Location: ED HPI - General General Date of Admission: 02/15/25 Date of Service: 02/15/25 Chief Complaint: Alcohol detoxification HPI Narrative SLOAN HARVEY, is a 55 M with past medical history of anxiety, depression, alcohol use disorder, nicotine abuse who presents to the ED with desire for alcohol detoxification He is a heavy alcohol user and his last drink was about 1 hour before presentation, drinks about 1/5 of locating a liquor every day and smokes half pack cigarettes daily, no other drug use. Previously admitted to [facility] for detoxification about 14 months back, and maintain sobriety for 10 months, but has been drinking steadilyfor the last 4 months No symptoms other than that Has been compliant with his medications for hypertension and depression Has good social support At the time of presentation in the ED BP 118/78, pulse 78, temp 98.4, oxygen saturation 96 WBC 6.9, hemoglobin 14.8, platelet count 216, sodium 135, potassium 3.3, chloride 96, BUN 17, creatinine 1.1, AST 153, ALT 115 alk phos 112, troponin T 15, bilirubin 1.02, Ethyl alcohol 97.6 [facility] Medical History Anxiety Depression Hypertension Home Medications ?Medication ?Instructions ?Recorded ?Last Taken ?Type amlodipine 5 mg tablet 5 mg PO DAILY 12/17/2302/15 History buspirone 10 mg tablet 10 mg PO TID 12/17/23 History duloxetine 60 mg capsule,delayed 60 mg PO DAILY 02/15/25 History release hydroxyzine pamoate 25 mg capsule 50 mg PO TID PRN anx iety 12/17/23 02/15/25 History ibuprofen 600 mg tablet 600 mg PO TID PRN pain 12/1602/15/25 History duloxetine 30 mg capsule,delayed 30 mg PO QHS 02/15/25 Unknown History release Allergy/AdvReac Type Severity Reaction Status Date / Time No Known Allergies Allergy Verified 02/15/25 15:33 Family History (Updated 12/17/23 @ 16:[address] Sloan Villalobos DO) Other Alcoholism Social History (Updated 12/17/23 @ 16:[address] Sloan Villalobos DO) Smoking Status: Current every day smoker tobacco type: cigarettes Smokeless tobacco user: other substance use type: marijuana and amphetamines ROS Review of Systems ROS Unobtainable: Denies due to encephalopathy, due to endotracheal tube, due tomental condition, due to mental status or other Constitutional Constitutional: Denies anorexia, change in weight, chills, fatigue, fever(s), malaise, night sweats, weakness or other Eyes Eyes: Denies blurry vision, change in eye color, change in vision, discharge from eye(s), double vision, erythema, eye pain, loss of vision or other ENT HEENT: Denies abnormal hearing, dysphagia, ear pain, epistaxis, headache(s), hearing loss, nasal congestion, nasal discharge, post nasal drip, sinus pressure, sore throat or other Cardiovascular Cardiovascular: Denies chest pain, claudication, dyspnea on exertion, edema, lightheadedness, orthopnea, palpitations, paroxysmal nocturnal dyspnea, rapid heart rate, syncope or other Respiratory/Chest Respiratory/Chest: Denies cough, dyspnea, excessive phlegm production, hemoptysis, productive cough, shortness of breath at rest, shortness of breath with exertion, wheezing or other Gastrointestinal Gastrointestinal: Denies abdominal pain, coffee ground emesis, constipation, diarrhea, dyspepsia, hematemesis, hematochezia, loose stools, melena, nausea, vomiting or other Genitourinary Genitourinary: Denies burning urination, difficulty urinating, dysuria, hematuria, nocturia, urinary frequency, urinary hesitancy, urinary incontinence,urinary urgency or other Musculoskeletal Musculoskeletal: Denies arthralgias, back pain, joint pain, joint stiffness, joint swelling, myalgias, neck pain or other Neurologic Neurologic: Denies abnormal gait, abnormal speech, confusion, disequilibrium, dizziness, focal weakness, headache(s), numbness, paresthesias, seizure-like activity, seizures, syncope, tingling, tremor(s) or other Psychiatric Psychiatric: Denies anxiety, depression, homicidal ideation, suicidal ideation or other Endocrine Endocrinology: Denies change in body appearance, cold intolerance, excessive sweating, heat intolerance, polydipsia, polyuria or other Hematologic/Lymphatic Hematologic/Lymphatic: Denies anemia, easy bleeding, easy bruising, lymphadenopathy or other Vital Signs Vital Signs Vital Signs: 02/15/25 15:33 02/15/25 16:33 02/15/25 17:00 Temperature 97.8 F Temperature Source Temporal Pulse Rate 98 94 78 Respiratory Rate 18 22 H 15 Blood Pressure 136/99 H 117/73 118/78 Blood Pressure Mean 111 87 91 Pulse Ox 100 98 96 Oxygen Delivery Method Room Air Room Air Room Air 02/15/25 17:34 Temperature 98.4 F Temperature Source Pulse Rate 78 Respiratory Rate 16 Blood Pressure 118/78 Blood Pressure Mean 91 Pulse Ox 96 Oxygen Delivery Method Weight Weight: 248 lb 12.8 oz Body Mass Index (BMI) 35.6 Physical Exam Const alert, oriented x3 and no apparent distress HEENT normocephalic and head/scalp atraumatic Eyes PERRL and EOMs intact bilaterally Neck no lymphadenopathy and supple Resp normal respiratory effort and no retractions Cardio regular rate and regular rhythm GI normal to inspection, nondistended, normoactive bowel sounds Extremity normal to inspection and full ROM Neuro oriented x3 and CN's II-XII intact bilaterally Psych affect normal Results Lab / Micro Data 02/15/25 15:55 02/15/25 15:55 Labs: Laboratory Results - last 24 hr 02/15/25 15:55: WBC 6.9, RBC 4.82, Hgb 14.8, Hct 42.9, MCV 89.0, MCH 30.7, MCHC 34.5, RDW Std Deviation 40.0, RDW Coeff of Jacy 12.1, Plt Count 216, MPV 9.1, Immature Gran % (Auto) 0.300, Neut % (Auto) 66.2, Lymph % (Auto) 23.7, [place] % (Auto) 6.9, Eos % (Auto) 1.9, Baso % (Auto) 1.0, Absolute Neuts (auto) 4.6, Absolute Lymphs (auto) 1.64, Nucleated RBC % 0, Sodium 135, Potassium 3.3, Chloride 96 L, Carbon Dioxide 20.7 L, Anion Gap 18 H, BUN 17, Creatinine 1.19, Estim Creat Clear Calc 87.20, Est GFR (MDRD) Non-Af 72, BUN/Creatinine Ratio 14.6, Glucose 142 H, Calcium 9.3, Total Bilirubin 1.02, AST 153 H, ALT 115 H, Alkaline Phosphatase 112, Troponin T High Sens 15, Total Protein 7.8, Albumin 4.5, Globulin 3.2, Albumin/Globulin Ratio 1.4, Ethyl Alcohol 97.6 H Assessment & Plan Assessment/Plan (1) Polysubstance abuse: PLAN: Plan 55-year-old male with history of polysubstance abuse, anxiety, presents to the hospital for desire for inpatient detoxification #Alcohol use disorder - Monitoring based on CIWA protocol - Symptom management using gabapentin, dicyclomine, hydroxyzine, Zofran - Thiamine supplementation - Lorazepam taper #Nicotine dependence - Nicotine patches ordered #Acute alcoholic hepatitis - AST ALT both are elevated - Monitor PT/INR # Depression - Continue home medications # HTN - Continue amlodipine # DVT - Low risk - Encourage mobilization # CODE -Full code 02/15/251748 <Electronically signed by Samantha Leung MD> Cosigner Signature (if applicable): CC: Dr. Samantha Leung MD; Dr. Peggy Nicole DO~ Signed [facility] Work Phone: 1(492) 253-581905-30-2025 Evaluation note* Diagnosis Onset Date Resolution Status Admit Date Polysubstance abuse acute January 192024 5:40pm [facility] Work Phone: [phone]) 665-919905-30-2025 History and physical note [facility] Medical Records Department [address] [place] [address] H&P Exam - Hospitalist 02/15/251741 MR#: [id number] Acct: [id number] Name: SLOAN HARVEY Rep #:[id number] : 1970 55 From: Samantha Leung MD PCP: Dr. Peggy Nicole DO Status:REG ER Location: ED HPI - General General Date of Admission: 02/15/25 Date of Service: 02/15/25 Chief Complaint: Alcohol detoxification HPI Narrative SLOAN HARVEY, is a 55 M with past medical history of anxiety, depression, alcohol use disorder, nicotine abuse who presents to the ED with desire for alcohol detoxification He is a heavy alcohol user and his last drink was about 1 hour before presentation, drinks about 1/5 of locating a liquor every day and smokes half pack cigarettes daily, no other drug use. Previously admitted to [facility] for detoxification about 14 months back, and maintain sobriety for 10 months, but has been drinking steadilyfor the last 4 months No symptoms other than that Has been compliant with his medications for hypertension and depression Has good social support At the time of presentation in the ED BP 118/78, pulse 78, temp 98.4, oxygen saturation 96 WBC 6.9, hemoglobin 14.8, platelet count 216, sodium 135, potassium 3.3, chloride 96, BUN 17, creatinine 1.1, AST 153, ALT 115 alk phos 112, troponin T 15, bilirubin 1.02, Ethyl alcohol 97.6 [facility] Medical History Anxiety Depression Hypertension Home Medications ?Medication ?Instructions ?Recorded ?Last Taken ?Type amlodipine 5 mg tablet 5 mg PO DAILY 12/17/2302/15 History buspirone 10 mg tablet 10 mg PO TID 12/17/23 History duloxetine 60 mg capsule,delayed 60 mg PO DAILY 02/15/25 History release hydroxyzine pamoate 25 mg capsule 50 mg PO TID PRN anx iety 12/17/23 02/15/25 History ibuprofen 600 mg tablet 600 mg PO TID PRN pain 12/1602/15/25 History duloxetine 30 mg capsule,delayed 30 mg PO QHS 02/15/25 Unknown History release Allergy/AdvReac Type Severity Reaction Status Date / Time No Known Allergies Allergy Verified 02/15/25 15:33 Family History (Updated 12/17/23 @ 16:[address] Sloan Villalobos DO) Other Alcoholism Social History (Updated 12/17/23 @ 16:[address] Sloan Villalobos DO) Smoking Status: Current every day smoker tobacco type: cigarettes Smokeless tobacco user: other substance use type: marijuana and amphetamines ROS Review of Systems ROS Unobtainable: Denies due to encephalopathy, due to endotracheal tube, due tomental condition, due to mental status or other Constitutional Constitutional: Denies anorexia, change in weight, chills, fatigue, fever(s), malaise, night sweats, weakness or other Eyes Eyes: Denies blurry vision, change in eye color, change in vision, discharge from eye(s), double vision, erythema, eye pain, loss of vision or other ENT HEENT: Denies abnormal hearing, dysphagia, ear pain, epistaxis, headache(s), hearing loss, nasal congestion, nasal discharge, post nasal drip, sinus pressure, sore throat or other Cardiovascular Cardiovascular: Denies chest pain, claudication, dyspnea on exertion, edema, lightheadedness, orthopnea, palpitations, paroxysmal nocturnal dyspnea, rapid heart rate, syncope or other Respiratory/Chest Respiratory/Chest: Denies cough, dyspnea, excessive phlegm production, hemoptysis, productive cough, shortness of breath at rest, shortness of breath with exertion, wheezing or other Gastrointestinal Gastrointestinal: Denies abdominal pain, coffee ground emesis, constipation, diarrhea, dyspepsia, hematemesis, hematochezia, loose stools, melena, nausea, vomiting or other Genitourinary Genitourinary: Denies burning urination, difficulty urinating, dysuria, hematuria, nocturia, urinary frequency, urinary hesitancy, urinary incontinence,urinary urgency or other Musculoskeletal Musculoskeletal: Denies arthralgias, back pain, joint pain, joint stiffness, joint swelling, myalgias, neck pain or other Neurologic Neurologic: Denies abnormal gait, abnormal speech, confusion, disequilibrium, dizziness, focal weakness, headache(s), numbness, paresthesias, seizure-like activity, seizures, syncope, tingling, tremor(s) or other Psychiatric Psychiatric: Denies anxiety, depression, homicidal ideation, suicidal ideation or other Endocrine Endocrinology: Denies change in body appearance, cold intolerance, excessive sweating, heat intolerance, polydipsia, polyuria or other Hematologic/Lymphatic Hematologic/Lymphatic: Denies anemia, easy bleeding, easy bruising, lymphadenopathy or other Vital Signs Vital Signs Vital Signs: 02/15/25 15:33 02/15/25 16:33 02/15/25 17:00 Temperature 97.8 F Temperature Source Temporal Pulse Rate 98 94 78 Respiratory Rate 18 22 H 15 Blood Pressure 136/99 H 117/73 118/78 Blood Pressure Mean 111 87 91 Pulse Ox 100 98 96 Oxygen Delivery Method Room Air Room Air Room Air 02/15/25 17:34 Temperature 98.4 F Temperature Source Pulse Rate 78 Respiratory Rate 16 Blood Pressure 118/78 Blood Pressure Mean 91 Pulse Ox 96 Oxygen Delivery Method Weight Weight: 248 lb 12.8 oz Body Mass Index (BMI) 35.6 Physical Exam Const alert, oriented x3 and no apparent distress HEENT normocephalic and head/scalp atraumatic Eyes PERRL and EOMs intact bilaterally Neck no lymphadenopathy and supple Resp normal respiratory effort and no retractions Cardio regular rate and regular rhythm GI normal to inspection, nondistended, normoactive bowel sounds Extremity normal to inspection and full ROM Neuro oriented x3 and CN's II-XII intact bilaterally Psych affect normal Results Lab / Micro Data 02/15/25 15:55 02/15/25 15:55 Labs: Laboratory Results - last 24 hr 02/15/25 15:55: WBC 6.9, RBC 4.82, Hgb 14.8, Hct 42.9, MCV 89.0, MCH 30.7, MCHC 34.5, RDW Std Deviation 40.0, RDW Coeff of Jacy 12.1, Plt Count 216, MPV 9.1, Immature Gran % (Auto) 0.300, Neut % (Auto) 66.2, Lymph % (Auto) 23.7, [place] % (Auto) 6.9, Eos % (Auto) 1.9, Baso % (Auto) 1.0, Absolute Neuts (auto) 4.6, Absolute Lymphs (auto) 1.64, Nucleated RBC % 0, Sodium 135, Potassium 3.3, Chloride 96 L, Carbon Dioxide 20.7 L, Anion Gap 18 H, BUN 17, Creatinine 1.19, Estim Creat Clear Calc 87.20, Est GFR (MDRD) Non-Af 72, BUN/Creatinine Ratio 14.6, Glucose 142 H, Calcium 9.3, Total Bilirubin 1.02, AST 153 H, ALT 115 H, Alkaline Phosphatase 112, Troponin T High Sens 15, Total Protein 7.8, Albumin 4. 5, Globulin 3.2, Albumin/Globulin Ratio 1.4, Ethyl Alcohol 97.6 H Assessment & Plan Assessment/Plan (1) Polysubstance abuse: PLAN: Plan 55-year-old male with history of polysubstance abuse, anxiety, presents to the hospital for desire for inpatient detoxification #Alcohol use disorder - Monitoring based on CIWA protocol - Symptom management using gabapentin, dicyclomine, hydroxyzine, Zofran - Thiamine supplementation - Lorazepam taper #Nicotine dependence - Nicotine patches ordered #Acute alcoholic hepatitis - AST ALT both are elevated - Monitor PT/INR # Depression - Continue home medications # HTN - Continue amlodipine # DVT - Low risk - Encourage mobilization # CODE -Full code 02/15/25 8832 Cosigner Signature (if applicable): CC: Dr. Samantha Leung MD; Dr. Peggy Nicole DO~ Signed [facility]11-07-2024 NoteHNO ID: [id number] Author: DIANA ROBERTSON APRN.MAMMOGRAPHY TECHNICIAN Service: ? Author Type: Nurse Practitioner Type: Progress Notes Filed: 07/26/2024 19:49 Note Text: Subjective patient complains of dental pain on the left lower jaw. Patient says has been a couple weeks. Patient says it just started getting worse over the last couple days. Patient denies any fever chills nausea vomiting shortness of breath or chest pain. The history is provided by the patient. No manager investment was used. Dental Problem Review of Systems Constitutional: Negative. Skin: Negative. Objective Physical Exam Constitutional: Appearance: Normal appearance. HENT: Mouth/Throat: Comments: Patient said that marked above is a tooth that is painful. No signs of abscesses or drainage or swelling noted. Dental caries are present. Pulmonary: Effort: Pulmonary effort is normal. Neurological: Mental Status: He is alert. PAST MEDICAL HISTORY Diagnosis Date DDD (degenerative disc disease), lumbar History of alcoholism (HCC) SVT (supraventricular tachycardia) (HCC) s/p ablation TIA (transient ischemic attack) PAST SURGICAL HISTORY Procedure Laterality Date PAST SURGICAL HISTORY OF 2006 spinal fusion- lumbar ALLERGIES Patient has no known allergies. MEDICATIONS amLODIPine (NORVASC) 5 mg tablet Take 1 tablet by mouth once daily. busPIRone (BUSPAR) 10 mg tablet Take 1 tablet by mouth three times a day. hydrOXYzine HCl (ATARAX) 25 mg tablet Take 1 tablet by mouth three times a day as needed. naltrexone ER (VIVITROL) 380 mg injection Inject 380 mg intramuscularly once every month. DULoxetine (CYMBALTA) 60 mg capsule Take 1 capsule by mouth once daily. amoxicillin (AMOXIL) 875 mg tablet Take 1 tablet by mouth two times a day for 7 days. FAMILY HISTORY Problem Relation Age of Onset Mental illness Mother Alcohol/Drug Father Hypertension Other Social History Tobacco Use Smoking status: Every Day Types: Cigarettes Smokeless tobacco: Never Tobacco comments: 3-5 cigs currently Substance Use Topics Alcohol use: Not Currently Comment: 41 days sober Drug use: Not Currently ASSESSMENT/PLAN: 1. Pain, dental - ICD9: 525.9, ICD10: K08.89 - AMOXICILLIN 875 MG TABLET Patient about proper use of medication and supportive therapies. Educated about red flag symptoms and to go to the ER if any of these occur. Patient will follow-up with his dentist he has an appointment for a week from now. Patient was agreeable to this care plan. Diana Robertson APRN.[facility]11-07-2024 History of Present illness Narrative* Diana Robertson APRN.[facility] - 07/26/2024 7:47 PM EST Images from the original note were not included. Subjective patient complains of dental pain on the left lower jaw. Patient says has been a couple weeks. Patient says it just started getting worse over the last couple days. Patient denies any fever chills nausea vomiting shortness of breath or chest pain. The history is provided by the patient. No manager investment was used. Dental Problem Review of Systems Constitutional: Negative. Skin: Negative. Objective Physical Exam Constitutional: Appearance: Normal appearance. HENT: Mouth/Throat: Comments: Patient said that marked above is a tooth that is painful. No signs of abscesses or drainage or swelling noted. Dental caries are present. Pulmonary: Effort: Pulmonary effort is normal. Neurological: Mental Status: He is alert. PAST MEDICAL HISTORY Diagnosis Date DDD (degenerative disc disease), lumbar History of alcoholism ([facility]) SVT (supraventricular tachycardia) ([facility]) s/p ablation TIA (transient ischemic attack) PAST SURGICAL HISTORY Procedure Laterality Date PAST SURGICAL HISTORY OF 2005 spinal fusion- lumbar ALLERGIES Patient has no known allergies. MEDICATIONS amLODIPine (NORVASC) 5 mg tablet Take 1 tablet by mouth once daily. busPIRone (BUSPAR) 10 mg tablet Take 1 tablet by mouth three times a day. hydrOXYzine HCl (ATARAX) 25 mg tablet Take 1 tablet by mouth three times a day as needed. naltrexone ER (VIVITROL) 380 mg injection Inject 380 mg intramuscularly once every month. DULoxetine (CYMBALTA) 60 mg capsule Take 1 capsule by mouth once daily. amoxicillin (AMOXIL) 875 mg tablet Take 1 tablet by mouth two times a day for 7 days. FAMILY HISTORY Problem Relation Age of Onset Mental illness Mother Alcohol/Drug Father Hypertension Other Social History Tobacco Use Smoking status: Every Day Types: Cigarettes Smokeless tobacco: Never Tobacco comments: 3-5 cigs currently Substance Use Topics Alcohol use: Not Currently Comment: 41 days sober Drug use: Not Currently ASSESSMENT/PLAN: 1. Pain, dental - ICD9: 525.9, ICD10: K08.89 \ - AMOXICILLIN 875 MG TABLET Patient about proper use of medication and supportive therapies. Educated about red flag symptoms and to go to the ER if any of these occur. Patient will follow-up with his dentist he has an appointment for a week from now. Patient was agreeable to this care plan. Diana Robertson APRN.MAMMOGRAPHY TECHNICIAN [facility] Tele[facility] encounter Note * Telephone Encounter - Angela Rosenberg MA - 07/09/2024 2:12 PM EDT Items addressed in this encounter: Refill Encounter Prescription Refill Information The patient has been identified by name and date of : Yes Caregiver verified no other encounters exist for this prescription request: Yes Caregiver confirmed with patient/requestor that no other refills are due, in the near future, with this provider at this time: Yes The last office visit in the department: 06/05/24 Does the patient have a future office visit with this provider/department: No Requested Prescriptions Pending Prescriptions Disp Refills amLODIPine (NORVASC) 5 mg tablet 90 tablet 2 Sig: Take 1 tablet by mouth once daily. Angela Rosenberg MA July 09, 2024 2:12 PM Angela Rosenberg MA July 09, 2024 2:12 PM 2:12 PM [facility]10-21-2024 Miscellaneous Notes* Telephone Encounter - Angela Rosenberg MA - 07/09/2024 2:12 PM EDT Items addressed in this encounter: Refill Encounter Prescription Refill Information The patient has been identified by name and date of : Yes Caregiver verified no other encounters exist for this prescription request: Yes Caregiver confirmed with patient/requestor that no other refills are due, in the near future, with this provider at this time: Yes The last office visit in the department: 06/05/24 Does the patient have a future office visit with this provider/department: No Requested Prescriptions Pending Prescriptions Disp Refills amLODIPine (NORVASC) 5 mg tablet 90 tablet 2 Sig: Take 1 tablet by mouth once daily. Angela Rosenberg MA July 09, 2024 2:12 PM Angela Rosenberg MA July 09, 2024 2:12 PM 2:12 PM [facility] NoteHNO ID: [id number] Author: PEGGY NICOLE DO Service: ? Author Type: Physician Type: Progress Notes Filed: 06/05/2024 14:19 Note Text: Telemedicine Visit - Distance Health Virtual Visit Note Patient seen on Pirq Video Visit platform. Location of patient: [place] PCP: Peggy Nicole DO History of Present Illness Sloan Harvey is a 54 year old male with significant medical history including DDD, history of alcoholism, who presents for renewing plasma donation forms Plasma Donation States that he has been donating plasma fairly regularly over the past 3 years Had been over 6 months since he donated and was requested to renew paper work since he went to a new facility Reports that he does feel a little more drained for about day afterward but otherwise has no issues with donating History of herpes with occassional oral and genital outbreaks Anxiety/Depression/Alcohol Dependence Reports he is acclimating to increased social life, work routine, residence change - he is in 12th week in transition house and will be moving to sober housing, he is at biweekly peer and psych reviews Feels anxiety/depression is managed well with mindfulness, meditation, medications, and working the program Notices if he has missed dose of medication or is not paying close attention to nutrition he feels a decline is his mood When he is donating plasma more regularly he pays closer attention to his hydration and nutrition States he has good family support at this point in his recovery and he feels great with his progress Appreciates continuity of care with PCP and program, from a year ago he is in a much better place Social History Tobacco Use Smoking status: Every Day Types: Cigarettes Smokeless tobacco: Never Tobacco comments: 3-5 cigs currently Substance Use Topics Alcohol use: Not Currently Comment: 41 days sober Drug use: Not Currently Medical, surgical, family and social history reviewed/obtained and was updated/recorded as necessary. Please see chart/appropriate section of EMR for details. Current Outpatient Medications Medication Sig busPIRone (BUSPAR) 10 mg tablet Take 1 tablet by mouth three times a day. hydrOXYzine HCl (ATARAX) 25 mg tablet Take 1 tablet by mouth three times a day as needed. naltrexone ER (VIVITROL) 380 mg injection Inject 380 mg intramuscularly once every month. amLODIPine (NORVASC) 5 mg tablet Take 1 tablet by mouth once daily. DULoxetine (CYMBALTA) 60 mg capsule Take 1 capsule by mouth once daily. No current facility-administered medications for this visit. ALL MEDICATIONS REVIEWED AND VERIFIED WITH THE PATIENT Video Exam (Examination performed via Video enabled technology) General appearance: Alert, oriented, pleasant, in NAD :Yes Ill appearing :No Lethargic appearing :No Respiratory distress :No Assessment/Plan: 1. Encounter for completion of form with patient - ICD9: V68.89, ICD10: Z02.89 (primary diagnosis) Plasma donation forms - Clearance for donation, in good health to proceed with plasma donation - If feeling fatigue recommended to reduce frequency of donations - Advised to avoid donation during active herpes breakout to reduce risk of cross contamination 2. WHITNEY (generalized anxiety disorder) - ICD9: 300.02, ICD10: F41.1 Stable, currently in transition house- soon to transfer to sober house working program to abstain from alcohol - The current medical regimen is effective; continue present plan and medications. - Good family support currently, does not require adult social secretary at this time - Follow up as needed if symptoms worsen - Psychiatry following - Red flags discussed for need for in person care - All questions answered Patient verbalizes understanding and is in complete agreement with the above plan I have communicated my name and active licensure. The patient's identity and physical location were verified at the time of this visit. Either the patient or their legal self pay representative has been informed of the risks and benefits of -- and alternatives to -- treatment through a remote evaluation and consents to proceed with the evaluation remotely. Scribe Attestation: By signing my name below, I, Elena Stinson, attest that this documentation has been prepared under the direction and in the presence of Peggy Nicole MD Electronically Signed: Micheal Guardado. June 05, 2024 8:36 AM Physician Attestation: IPeggy DO, personally performed the services described in this documentation. All medical record entries made by the scribe were at my direction and in my presence. I have reviewed the chart and discharge instructions (if applicable) and agree that the record reflects my personal performance and is accurate and complete. Electronically Signed: Peggy Nicole DO. [facility]09-17-2024 History of Present illness Narrative* Peggy Nicole DO - 06/05/2024 8:35 AM EDT Telemedicine Visit - Distance Health Virtual Visit Note Patient seen on Pirq Video Visit platform. Location of patient: [place] PCP: Peggy Nicole DO History of Present Illness Sloan Harvey is a 54 year old male with significant medical history including DDD, history of alcoholism, who presents for renewing plasma donation forms Plasma Donation States that he has been donating plasma fairly regularly over the past 3 years Had been over 6 months since he donated and was requested to renew paper work since he went to a new facility Reports that he does feel a little more drained for about day afterward but otherwise has no issueswith donating History of herpes with occassional oral and genital outbreaks Anxiety/Depression/Alcohol Dependence Reports he is acclimating to increased social life, work routine, residence change - he is in 12th week in transition house and will be moving to sober housing, he is at biweekly peer and psych reviews Feels anxiety/depression is managed well with mindfulness, meditation, medications, and working theprogram Notices if he has missed dose of medication or is not paying close attention to nutrition he feels a decline is his mood When he is donating plasma more regularly he pays closer attention to his hydration and nutrition States he has good family support at this point in his recovery and he feels great with his progress Appreciates continuity of care with PCP and program, from a year ago he is in a much better place Social History Tobacco Use Smoking status: Every Day Types: Cigarettes Smokeless tobacco: Never Tobacco comments: 3-5 cigs currently Substance Use Topics Alcohol use: Not Currently Comment: 41 days sober Drug use: Not Currently Medical, surgical, family and social history reviewed/obtained and was updated/recorded as necessary. Please see chart/appropriate section of EMR for details. Current Outpatient Medications Medication Sig busPIRone (BUSPAR) 10 mg tablet Take 1 tablet by mouth three times a day. hydrOXYzine HCl (ATARAX) 25 mg tablet Take 1 tablet by mouth three times a day as needed. naltrexone ER (VIVITROL) 380 mg injection Inject 380 mg intramuscularly once every month. amLODIPine (NORVASC) 5 mg tablet Take 1 tablet by mouth once daily. DULoxetine (CYMBALTA) 60 mg capsule Take 1 capsule by mouth once daily. No current facility-administered medications for this visit. ALL MEDICATIONS REVIEWED AND VERIFIED WITH THE PATIENT Video Exam (Examination performed via Video enabled technology) General appearance: Alert, oriented, pleasant, in NAD :Yes Ill appearing :No Lethargic appearing :No Respiratory distress :No Assessment/Plan: 1. Encounter for completion of form with patient - ICD9: V68.89, ICD10: Z02.89 (primary diagnosis) Plasma donation forms - Clearance for donation, in good health to proceed with plasma donation - If feeling fatigue recommended to reduce frequency of donations - Advised to avoid donation during active herpes breakout to reduce risk of cross contamination 2. WHITNEY (generalized anxiety disorder) - ICD9: 300.02, ICD10: F41.1 Stable, currently in transition house- soon to transfer to sober house working program to abstain from alcohol - The current medical regimen is effective; continue present plan and medications. - Good family support currently, does not require adult social secretary at this time - Follow up as needed if symptoms worsen - Psychiatry following - Red flags discussed for need for in person care - All questions answered Patient verbalizes understanding and is in complete agreement with the above plan I have communicated my name and active licensure. The patient's identity and physical location wereverified at the time of this visit. Either the patient or their legal self pay representative has been informed of the risks and benefits of -- and alternatives to -- treatment through a remote evaluation andconsents to proceed with the evaluation remotely. Scribe Attestation: By signing my name below, IElena, attest that this documentation has been prepared under the direction and in the presence of Peggy Nicole MD Electronically Signed: Micheal Guardado. June 05, 2024 8:36 AM Physician Attestation: Peggy Bang DO, personally performed the services described in this documentation. All medical record entries made by the scribe were at my direction and in my presence. I have reviewed the chart and discharge instructions (if applicable) and agree that the record reflects my personal performance and is accurate and complete. * Golden Alvarado RN - 06/05/2024 8:01 AM EDT Items addressed in this encounter: Other VV first attempt to contact patient, Analisa Golden Alvarado RN June 05, 2024 8:01 AM 8:01 AM Items addressed in this encounter: Other VV precheck , name and location verified aware of tele health visit with A Bonnie Danielle RN June 05, 2024 8:31 AM 8:31 AM [facility] NoteHNO ID: [id number] Author: GOLDEN ALVARADO RN Service: ? Author Type: Registered Nurse Type: Progress Notes Filed: 06/05/2024 14:19 Note Text: Items addressed in this encounter: Other VV first attempt to contact patient, LIZETTM Golden Alvarado RN June 05, 2024 8:01 AM 8:01 AM Items addressed in this encounter: Other VV precheck , name and location verified aware of tele health visit with A Bonnie Danielle RN June 05, 2024 8:31 AM 8:31 [facility]09-10-2024 Telephone encounter Note* Telephone Encounter - Angela Rosenberg MA - 05/29/2024 3:24 PM EDT Items addressed in this encounter: Telephone Encounter Patient scheduled for 06/05/24 Angela Rosenberg MA May 29, 2024 3:24 PM 3:24 PM [facility]-10-2024 Miscellaneous Notes* Telephone Encounter - Angela Rosenberg MA - 05/29/2024 3:24 PM EDT Items addressed in this encounter: Telephone Encounter Patient scheduled for 06/05/24 Angela Rosenberg MA May 29, 2024 3:24 PM 3:24 PM * Telephone Encounter - Angela Rosenberg MA - 05/28/2024 3:01 PM EDT Items addressed in this encounter: Telephone Encounter MyChart Encounter Attempted to reach patient no answer LVM and sent mychart message appointment needed Angela Rosenberg MA May 28, 2024 3:01 PM 3:01 PM * Telephone Encounter - Peggy Nicole DO - 05/28/2024 2:02 PM EDT Virtual visit to discuss with me would be recommended * Telephone Encounter - Angela Rosenberg MA - 05/28/2024 1:43 PM EDT Items addressed in this encounter: MyChart Encounter Would a appointment be recommended please advise Angela Rosenberg MA May 28, 2024 1:43 PM 1:43 PM [facility] Telephone encounter Note * Telephone Encounter - Angela Rosenberg MA - 05/28/2024 3:01 PM EDT Items addressed in this encounter: Telephone Encounter MyChart Encounter Attempted to reach patient no answer LVM and sent mychart message appointment needed Angela Rosenberg MA May 28, 2024 3:01 PM 3:01 PM [facility] Telephone encounter Note* Telephone Encounter - Peggy Nicole DO - 05/28/2024 2:02 PM EDT Virtual visit to discuss with me would be recommended [facility]-09-20[facility] Telephone encounter Note* Telephone Encounter - Angela Rosenberg MA - 05/28/2024 1:43 PM EDT Items addressed in this encounter: MyChart Encounter Would a appointment be recommended please advise Angela Rosenberg MA May 28, 2024 1:43 PM 1:43 PM [facility]-17-[facility] Instructions* Patient Instructions* Peggy Nicole DO - 04/04/2024 4:03 PM EDT The central scheduling phone number is [phone]. documented in this encounterK[facility]07-17-2024 NoteHNO ID: [id number] Author: PEGGY NICOLE DO Service: ? Author Type: Physician Type: Progress Notes Filed: 04/04/2024 17:23 Note Text: Telemedicine Visit - Distance Health Virtual Visit Note Patient seen on Pirq Video Visit platform. Location of patient: [place] PCP: Peggy Nicole DO History of Present Illness Sloan Harvey is a 54 year old male who presents for a follow-up. Alcohol Abuse: - Relapsed in September and was able to get into a facility in [place] at the end of November - transitional home - Started Vivitrol WHITNEY: - Is working with a therapist and psychiatrist - Currently on Buspar 10 mg TID, Cymbalta 60 mg, Hydroxyzine 25 mg TID prn - Says he will not use Hydroxyzine until the afternoon/evening on a good week and will use it in correlation with the Buspar when it's a bad week - Feels his mood is better HTN: - On Amlodipine 5 mg - Has not had any high BP readings - Denies cp, HAs DDD of Lumbar: - Is having low back pain - Needs a referral to spine Social History Tobacco Use Smoking status: Every Day Types: Cigarettes Smokeless tobacco: Never Tobacco comments: 3-5 cigs currently Substance Use Topics Alcohol use: Not Currently Comment: 41 days sober Drug use: Not Currently Current Outpatient Medications Medication Sig amLODIPine (NORVASC) 5 mg tablet Take 1 tablet by mouth once daily. DULoxetine (CYMBALTA) 60 mg capsule Take 1 capsule by mouth once daily. busPIRone (BUSPAR) 10 mg tablet Take 1 tablet by mouth three times a day. hydrOXYzine HCl (ATARAX) 25 mg tablet Take 1 tablet by mouth three times a day as needed. naltrexone ER (VIVITROL) 380 mg injection Inject 380 mg intramuscularly once every month. No current facility-administered medications for this visit. Video Exam (Examination performed via Video enabled technology) General appearance: Alert, oriented, pleasant, in NAD :Yes Ill appearing :No Lethargic appearing :No Respiratory distress :No Assessment/Plan: 1. DDD (degenerative disc disease), lumbar - ICD9: 722.52, ICD10: M51.36 - h/o fusion - [facility] 2. Hypertension, essential - ICD9: 401.9, ICD10: I10 - On Amlodipine 5 mg - Currently being managed by medical team at the facility he is staying in 3. Alcohol abuse - ICD9: 305.00, ICD10: F10.10 - Has been sober since October - Being treated with Vivitrol - Continue to follow with psych team 4. WHITNEY (generalized anxiety disorder) - ICD9: 300.02, ICD10: F41.1 - Well controlled - Meds are being managed by residential psych team - Currently on Buspar, Cymbalta, and Hydroxyzine 5. Screening for colon cancer - ICD9: V76.51, ICD10: Z12.11 - Previous test had an error with processing - COLOGUARD - Red flags discussed for need for in person care - All questions answered I have communicated my name and active licensure. The patient's identity and physical location were verified at the time of this visit. Either the patient or their legal self pay representative has been informed of the risks and benefits of -- and alternatives to -- treatment through a remote evaluation and consents to proceed with the evaluation remotely. Scribe Attestation: By signing my name below, Mely Bang, attest that this documentation has been prepared under the direction and in the presence of Peggy Nicole D.O. Electronically Signed: Mely Burton. April 04, 2024 3:51 PM. Physician Attestation: Peggy Bang DO, personally performed the services described in this documentation. All medical record entries made by the scribe were at my direction and in my presence. I have reviewed the chart and discharge instructions (if applicable) and agree that the record reflects my personal performance and is accurate and complete. Electronically Signed: Peggy Nicole DO. [facility]07-17-2024 History of Present illness Narrative* Peggy Nicole DO - 04/04/2024 3:51 PM EDT Telemedicine Visit - Distance Health Virtual Visit Note Patient seen on Pirq Video Visit platform. Location of patient: [place] PCP: Peggy Nicole DO History of Present Illness Sloan Harvey is a 54 year old male who presents for a follow-up. Alcohol Abuse: - Relapsed in September and was able to get into a facility in [place] at the end of November - transitional home - Started Vivitrol WHITNEY: - Is working with a therapist and psychiatrist - Currently on Buspar 10 mg TID, Cymbalta 60 mg, Hydroxyzine 25 mg TID prn - Says he will not use Hydroxyzine until the afternoon/evening on a good week and will use it in correlation with the Buspar when it's a bad week - Feels his mood is better HTN: - On Amlodipine 5 mg - Has not had any high BP readings - Denies cp, HAs DDD of Lumbar: - Is having low back pain - Needs a referral to spine Social History Tobacco Use Smoking status: Every Day Types: Cigarettes Smokeless tobacco: Never Tobacco comments: 3-5 cigs currently Substance Use Topics Alcohol use: Not Currently Comment: 41 days sober Drug use: Not Currently Current Outpatient Medications Medication Sig amLODIPine (NORVASC) 5 mg tablet Take 1 tablet by mouth once daily. DULoxetine (CYMBALTA) 60 mg capsule Take 1 capsule by mouth once daily. busPIRone (BUSPAR) 10 mg tablet Take 1 tablet by mouth three times a day. hydrOXYzine HCl (ATARAX) 25 mg tablet Take 1 tablet by mouth three times a day as needed. naltrexone ER (VIVITROL) 380 mg injection Inject 380 mg intramuscularly once every month. No current facility-administered medications for this visit. Video Exam (Examination performed via Video enabled technology) General appearance: Alert, oriented, pleasant, in NAD :Yes Ill appearing :No Lethargic appearing :No Respiratory distress :No Assessment/Plan: 1. DDD (degenerative disc disease), lumbar - ICD9: 722.52, ICD10: M51.36 - h/o fusion - [facility] 2. Hypertension, essential - ICD9: 401.9, ICD10: I10 - On Amlodipine 5 mg - Currently being managed by medical team at the facility he is staying in 3. Alcohol abuse - ICD9: 305.00, ICD10: F10.10 - Has been sober since October - Being treated with Vivitrol - Continue to follow with psych team 4. WHITNEY (generalized anxiety disorder) - ICD9: 300.02, ICD10: F41.1 - Well controlled - Meds are being managed by residential psych team - Currently on Buspar, Cymbalta, and Hydroxyzine 5. Screening for colon cancer - ICD9: V76.51, ICD10: Z12.11 - Previous test had an error with processing - COLOGUARD - Red flags discussed for need for in person care - All questions answered I have communicated my name and active licensure. The patient's identity and physical location wereverified at the time of this visit. Either the patient or their legal self pay representative has been informed of the risks and benefits of -- and alternatives to -- treatment through a remote evaluation andconsents to proceed with the evaluation remotely. Scribe Attestation: By signing my name below, Mely Bang, attest that this documentation has been prepared under the direction and in the presence of Peggy Nicole D.O. Electronically Signed: Mely Burton. April 04, 2024 3:51 PM. Physician Attestation: Peggy Bang DO, personally performed the services described in this documentation. All medical record entries made by the scribe were at my direction and in my presence. I have reviewed the chart and discharge instructions (if applicable) and agree that the record reflects my personal performance and is accurate and complete. * Golden Alvarado RN - 04/04/2024 9:59 AM EDT Items addressed in this encounter: Other VV pre check name and location verified, aware of tele health visit with A Bonnie Howe gad7/ phq9 completed Golden Alvarado RN April 04, 2024 9:59 AM 9:59 AM documented in this encounterK[facility]07-[facility]-2024 NoteHNO ID: [id number] Author: GOLDEN ALVARADO RN Service: ? Author Type: Registered Nurse Type: Progress Notes Filed: 04/04/2024 17:23 Note Text: Items addressed in this encounter: Other VV pre check name and location verified, aware of tele health visit with A Bonnie Howe gad7/ phq9 completed Golden Alvarado RN April 04, 2024 9:59 AM 9:59 [facility]05-25-2024 Telephone encounter Note* Telephone Encounter - Masha Basurto RN - 2024 12:16 PM EDT Letter sent [facility]-25-2024 Miscellaneous Notes* Telephone Encounter - Masha Basurto RN - 2024 12:16 PM EDT Letter sent * Telephone Encounter - Masha Basurto RN - 2024 9:28 AM EDT Vm left to call and speak with the nurse * Telephone Encounter - Masha Basurto RN - 02/10/2024 11:13 AM EDT Vm left to call and speak with the nurse * Telephone Encounter - Masha Basurto RN - 02/01/2024 2:58 PM EDT Vm left to call and speak with a nurse * Telephone Encounter - Erika Morillo APRN.MAMMOGRAPHY TECHNICIAN - 01/27/2024 4:50 PM EDT Does patient have an acute outbreak right now? I don't see this has even been addressed by Dr. Nicole. He may need evaluation. Thanks, Erika Morillo APRN.MAMMOGRAPHY TECHNICIAN Covering for Peggy Nicole DO * Telephone Encounter - Neda Pulido RN - 01/27/2024 2:16 PM EDT Images from the original note were not included. Sloan Roth [facility] (supporting Peggy Nicole DO)46 minutes ago (1:29 PM) CAROLINA [place], I think I have had a stash of this medication since before you began as my Primary Care. I don't see it on the list in MyChart nor in my history with [facility]. Normally that would be a good thing since itindicates I haven't needed it. But now I do. Can I get a prescription for either the 500mg or 1g dosage to a new pharmacy? I've relocated. The closest pharmacy that is open after 5pm today and on the weekends is [facility] at [address] [place] [address]. Thank you, Sloan documented in this encounterK[facility]05-[facility]-2024 Telephone encounter Note * Telephone Encounter - Masha Basurto RN - 2024 9:28 AM EDT Vm left to call and speak with the nurse [facility]-24-[facility] Telephone encounter Note* Telephone Encounter - Masha Basurto RN - 02/10/2024 11:13 AM EDT Vm left to call and speak with the nurse [facility]05-15-2024 Telephone encounter Note* Telephone Encounter - Masha Basurto RN - 02/01/2024 2:58 PM EDT Vm left to call and speak with a nurse [facility]05-10-2024 Telephone encounter Note* Telephone Encounter - Erika Morillo APRN.MARCEL - 01/27/2024 4:50 PM EDT Does patient have an acute outbreak right now? I don't see this has even been addressed by Dr. Nicole. He may need evaluation. Thanks, Erika Morillo APRN.MAMMOGRAPHY TECHNICIAN Covering for Peggy Nicole DO [facility] Work Phone: [phone] 389-863105-10-2024 Telephone encounter Note* Telephone Encounter - Neda Pulido RN - 01/27/2024 2:16 PM EDT Images from the original note were not included. [facility] (supporting Peggy Nicole DO)46 minutes ago (1:29 PM) CAROLINA [place], I think I have had a stash of this medication since before you began as my Primary Care. I don't see it on the list in MyChart nor in my history with [facility]. Normally that would be a good thing since itindicates I haven't needed it. But now I do. Can I get a prescription for either the 500mg or 1g dosage to a new pharmacy? I've relocated. The closest pharmacy that is open after 5pm today and on the weekends is [facility] at [address] [place] [address]. Thank you, Sloan [facility]05-10-[facility] Telephone encounter Note* Telephone Encounter - Neda Pulido RN - 01/27/2024 2:15 PM EDT See nurse triage note [facility]05-10-2024 Miscellaneous Notes* Telephone Encounter - Neda Pulido RN - 01/27/2024 2:15 PM EDT See nurse triage note documented in this encounterK[facility]04-29-2024 Nurse Note* Neda Rush MA - 01/16/2024 3:23 PM EDT Ambulatory Ear Lavage Pre-treatment: Warm water Treatment: Left ear Equipment and Irrigation solution and Volume used: Single use syringe with single use irrigation tip Water Return flow appearance: Brown Patient tolerated procedure: yes Tympanic membrane assessment: Tympanic membrane assessed by LIP pre and post procedure Neda Rush MA [facility]04-29-2024 Nurse Note* Neda Rush MA - 01/16/2024 3:23 PM EDT Ambulatory Ear Lavage Pre-treatment: Warm water Treatment: Left ear Equipment and Irrigation solution and Volume used: Single use syringe with single use irrigation tip Water Return flow appearance: Brown Patient tolerated procedure: yes Tympanic membrane assessment: Tympanic membrane assessed by LIP pre and post procedure Neda Rush MA documented in this encounterK[facility]04-29-2024 NoteHNO ID: [id number] Author: KWADWO SPIVEY APRN.MAMMOGRAPHY TECHNICIAN Service: ? Author Type: Nurse Practitioner Type: Progress Notes Filed: 01/16/2024 15:37 Note Text: This note was created using Zhaopinriter. Subjective Sloan Harvey is a 53 year old male. HPI Pt awoke with clogged left ear about a week ago. Pt states he normally has drainage from his ear but since the ear is clogged there is no current drainage. Pt has had this for his whole life. He was to follow up with ENT but has not be able to do this yet. Review of Systems Constitutional: Negative for fatigue and fever. HENT: Positive for ear discharge and ear pain. Respiratory: Negative for cough. Objective BP 124/87 Pulse 81 Temp 36.4 ?C (97.6 ?F) Resp 18 Wt 110 kg (242 lb 8.1 oz) SpO2 95% BMI 33.82 kg/m? Physical Exam Vitals and nursing note reviewed. Constitutional: General: He is not in acute distress. Appearance: Normal appearance. He is not ill-appearing. HENT: Head: Normocephalic. Comments: Mild cerumen impaction of left ear Right Ear: Tympanic membrane normal. Mouth/Throat: Mouth: Mucous membranes are moist. Eyes: Conjunctiva/sclera: Conjunctivae normal. Cardiovascular: Rate and Rhythm: Normal rate and regular rhythm. Pulmonary: Effort: Pulmonary effort is normal. Breath sounds: Normal breath sounds. Musculoskeletal: General: Normal range of motion. Cervical back: Normal range of motion. Skin: General: Skin is warm and dry. Neurological: General: No focal deficit present. Mental Status: He is alert. Psychiatric: Mood and Affect: Mood normal. Behavior: Behavior normal. Assessment and Plan ASSESSMENT/PLAN: 1. Impacted cerumen of left ear - ICD9: 380.4, ICD10: H61.22 Patient's left ear was flushed by nursing staff with good results. Left TM was easily visualized with no perforation, erythema, or bulging noted. I discussed follow-up with ENT and patient states he has a referral pending which he will follow-up with. Kwadwo Spivey APRN.[facility]04-29-2024 History of Present illness Narrative* Kwadwo Spivey APRN.[facility] - 01/16/2024 3:00 PM EDT This note was created using Zhaopinriter. Subjective Sloan Handor is a 53 year old male. HPI Pt awoke with clogged left ear about a week ago. Pt states he normally has drainage from his ear but since the ear is clogged there is no current drainage. Pt has had this for his whole life. He was to follow up with ENT but has not be able to do this yet. Review of Systems Constitutional: Negative for fatigue and fever. HENT: Positive for ear discharge and ear pain. Respiratory: Negative for cough. Objective BP 124/87 Pulse 81 Temp 36.4 C (97.6 F) Resp 18 Wt 110 kg (242 lb 8.1 oz) SpO2 95% BMI 33.82 kg/m Physical Exam Vitals and nursing note reviewed. Constitutional: General: He is not in acute distress. Appearance: Normal appearance. He is not ill-appearing. HENT: Head: Normocephalic. Comments: Mild cerumen impaction of left ear Right Ear: Tympanic membrane normal. Mouth/Throat: Mouth: Mucous membranes are moist. Eyes: Conjunctiva/sclera: Conjunctivae normal. Cardiovascular: Rate and Rhythm: Normal rate and regular rhythm. Pulmonary: Effort: Pulmonary effort is normal. Breath sounds: Normal breath sounds. Musculoskeletal: General: Normal range of motion. Cervical back: Normal range of motion. Skin: General: Skin is warm and dry. Neurological: General: No focal deficit present. Mental Status: He is alert. Psychiatric: Mood and Affect: Mood normal. Behavior: Behavior normal. Assessment and Plan ASSESSMENT/PLAN: 1. Impacted cerumen of left ear - ICD9: 380.4, ICD10: H61.22 Patient's left ear was flushed by nursing staff with good results. Left TM was easily visualized with no perforation, erythema, or bulging noted. I discussed follow-up with ENT and patient states he has a referral pending which he will follow-up with. Kwadwo Spivey APRN.MAMMOGRAPHY TECHNICIAN documented in this encounterK[facility]04-01-2024 Consult note Author Mely Mendoza [facility] December 19, 2023 10:09am Note Date/Time December 19, 2023 10:0 9am [facility] Medical Records Department [address] [place] [id number] Counseling Note - Pharmacy 12/19/23 1009 MR#: [id number] Acct: [id number] Name: SLOAN HARVEY Rep #:[id number] : 1970 53 From: Mely Mendoza PCP: Care Physician,No Primary Status :ADM IN Y Location: [address] [place] Med Reconciliation Pharmacy Service has performed discharge medication reconciliation for this patient. The patient's discharge medication list was reviewed for discrepancies and discrepancies were resolved. Medications at Discharge Home Medications amlodipine 5 mg tablet 5 mg PO DAILY 12/17/23 buspirone 10 mg tablet 10 mg PO TID 12/17/23 duloxetine 60 mg capsule,delayed release 60 mg PO DAILY 12/17/23 hydroxyzine pamoate 25 mg capsule 50 mg PO TID PRN anxiety 12/17/23 ibuprofen 600 mg tablet 600 mg PO TID PRN pain 12/17/23 12/19/23 1009 <Electronically signed by Mely Mendoza> Date _ Mely Mendoza Cosigner Signature (if applicable): Date CC: ~ Signed [facility] Work Phone: 1(202) 788-867604-01-2024 Discharge summary Author Umang Bassett [facility] December 19, 2023 9:01am Note Date/Time December 19, 2023 9:00 am [facility] Medical Records Department [address] [place] [id number] Discharge Summary 12/19/23 0858 MR#: [id number] Acct: [id number] Name: EVELINSLOAN JOHNNT Rep #:[id number] : 1970 53 From: Umang Bassett MD PCP: Care Physician,No Primary Status :ADM IN Location: [place] [address] Providers Date of Admission: 12/17/23 Date of Discharge: 12/19/23 Primary Care Physician: No Primary Care Phys Reason For Visit: ALCOHOL DETOX Diagnosis Discharge Diagnosis (1) Alcohol withdrawal: Status: Acute Code(s): F10.939 - Alcohol use, unspecified with withdrawal, unspecified Medications at Discharge Home Medications amlodipine 5 mg tablet 5 mg PO DAILY 12/17/23 buspirone 10 mg tablet 10 mg PO TID 12/17/23 duloxetine 60 mg capsule,delayed release 60 mg PO DAILY 12/17/23 hydroxyzine pamoate 25 mg capsule 50 mg PO TID PRN anxiety 12/17/23 ibuprofen 600 mg tablet 600 mg PO TID PRN pain 12/17/23 Hospital Course Summary of Care Provided Minutes Spent on Discharge: 32 Hospital Course: Patient is a 53-year-old gentleman with history of polysubstance dependence including alcohol presented with acute alcohol withdrawal Acute alcohol withdrawal ? Patient admitted to regular nursing floor managed with phenobarb taper. Discharged home to follow-up with [facility] as outpatient 2. Hypertension - Blood pressure controlled, home medications continued with dose adjustment as needed 3. Class I obesity with BMI of 33 ? Weight loss advised 4. Depression ? Patient is on duloxetine did continue 5. Polysubstance dependence ? Including history of amphetamine use complicating care, counseled on cessation Physical Exam Const Constitutional Narrative: GENERAL: cooperative HEENT: Atraumatic; normocephalic EYES; Anicteric, Normal Conjunctiva NECK; supple, normal thyroid, RESPIRATORY: Diminished to auscultation CARDIOVASCULAR: Regular S1 S2, GI: soft, normoactive bowel sounds, : No Renal angle tenderness; EXTREMITIES: No edema, no clubbing, MUSCULOSKELETAL: no muscle wasting NEURO: Awake; no lateralizing signs. SKIN: No Rash PSYCH; Flat affect Weight / BMI Weight Weight: 107.093 kg Body Mass Index (BMI) 32.9 ABG / Lab / Microbiology Data 12/17/23 14:20 12/17/23 14:20 D/C Instructions Discharge Diet: No restrictions Discharge Activity: Return to Normal Activity Call your doctor if you observe: Fever of 101 or Higher, Shortness of breath, Fainting spells and Chest pain Meaningful Use Info Meaningful Use Diagnoses (Choose all that apply): None applicable Discharge Plan Admission Admit Date/Time: 12/17/23 15:51 Attending Provider: Umang Bassett Primary Care Provider: Care Physician,No Primary Consulting Providers: Sloan Villalobos; Anatoly Peck Discharge Orders/Prescriptions Prescriptions: No Action amlodipine 5 mg tablet 5 mg PO DAILY ibuprofen 600 mg tablet 600 mg PO TID PRN (Reason: pain) Patient Comments: PT ONLY TAKES 1-2 TIMES A DAY hydroxyzine pamoate 25 mg capsule 50 mg PO TID PRN (Reason: anxiety) duloxetine 60 mg capsule,delayed release(DR/EC) 60 mg PO DAILY buspirone 10 mg tablet 10 mg PO TID Referrals / Follow Up: Care Physician,No Primary [Primary Care Provider] - Disposition Disposition (needs filled in before D/C Order can be placed): Home, Self Care Charges/Coding Visit Charges Inpatient E&M: 33291 Disch Hosp >30min 12/19/23 0901 <Electronically signed by Umang Bassett MD> Cosigner Signature (if applicable): CC: Dr. Umang Bassett MD; No Primary Care Physician~ Signed [facility] Work Phone: 1(619) 300-222503-31-2024 Progress note Author Anatoly Peck [facility] December 18, 2023 10:01am Note Date/Time December 18, 2023 10: 01am [facility] Medical Records Department [address] [place] [address] Progress Note - Hospitalist 12/18/23 0958 MR#: [id number] Acct: [id number] Name: SLOAN HARVEY Rep #:[id number] : 1970 53 From: Anatoly Peck DO PCP: Care Physician,No Primary Status :ADM IN Location: [place] [address] Reason for Visit Reason for Visit: Diagnoses Alcohol use, unspecified with withdrawal, unspecified (12/17/23) Subjective Subjective Patient was seen and examined today, he has no complaints of any tremor or anxiety at this time, patient was admitted for alcohol detox yesterday. Patientstates he has never been through detox here although he has been through detox in the past-the last time appears to be December 2022 per medical record. Objective Data Objective Data Vital Signs: Vital Signs Temp Pulse Resp BP Pulse Ox O2 Del Method 98.6 F 55 L 18 137/96 H 94 Room Air 12/18/23 05:40 12/18/23 05:40 12/18/23 05:40 12/18/23 05:40 12/18/23 05:40 12/18/23 05:40 Oxygen Delivery Method Room Air Weight: 107.093 kg Body Mass Index (BMI) 32.9 Intake & Output: Intake and Output for Last 24 Hours 12/16/23 12/17/23 12/18/23 23:59 23:59 23:59 Intake Total 1300 / 1300 200 / 200 Balance 1300 / 1300 200 / 200 Lab / Micro Data 12/17/23 14:20 12/17/23 14:20 Labs: Laboratory Results - last 24 hr 12/17/23 14:20: WBC 6.5, RBC 4.90, Hgb 14.9, Hct 44.5, MCV 90.8, MCH 30.4, MCHC 33.5, RDW Std Deviation 49.9 H, RDW Coeff of Jacy 15.1 H, Plt Count 241, MPV 9.0,Immature Gran % (Auto) 0.300, Neut % (Auto) 61.8, Lymph % (Auto) 25.3, [place] % (Auto) 9.2, Eos % (Auto) 2.5, Baso % (Auto) 0.9, Absolute Neuts (auto) 4.0, Absolute Lymphs (auto) 1.65, Nucleated RBC % 0, Sodium 140, Potassium 4.1, Chloride 108 H, Carbon Dioxide 25.0, Anion Gap 7, BUN 13, Creatinine 0.94, EstimCreat Clear Calc 113.55, Est GFR (MDRD) Af Amer 107, Est GFR (MDRD) Non-Af 89, BUN/Creatinine Ratio 13.8, Glucose 80, Calcium 8.7, Total Bilirubin 0.50, AST 60H, ALT 89 H, Alkaline Phosphatase 121 H, Total Protein 7.5, Albumin 3.4, Globulin 4.1, Albumin/Globulin Ratio 0.8 L, Ethyl Alcohol 148.0 12/17/23 14:25: Urine Opiates Screen NEGATIVE, Urine Methadone Screen NEGATIVE, Ur Barbiturates Screen NEGATIVE, Ur Phencyclidine Scrn NEGATIVE, Ur AmphetaminesScreen NEGATIVE, MDMA (Ecstasy) Screen NEGATIVE, U Benzodiazepines Scrn NEGATIVE, Urine Cocaine Screen NEGATIVE, U Cannabinoids Screen POSITIVE H, Ur Drug Screen Comment Physical Exam Const alert, oriented x3, no apparent distress and healthy appearing General Appearance: cooperative, well kempt and well developed Orientation / Consciousness: awake, oriented to person, oriented to place and oriented to time HEENT normocephalic and moist oral mucous membranes Eyes PERRL, EOMs intact bilaterally and conjunctivae normal Neck supple, no JVD, thyroid normal and no carotid bruits General: trachea midline Resp normal respiratory effort and clear to auscultation bilaterally Auscultation: Negative for rales, rhonchi or wheezes Cardio regular rate, regular rhythm, no murmurs, no rub and no gallops GI normal to inspection, nondistended, normoactive bowel sounds, soft to palpation,non-tender and non-distended Extremity no clubbing, cyanosis or edema Skin no rashes or lesions noted General Skin Exam: no breakdown Neuro oriented x3, CN's II-XII intact bilaterally, no focal motor deficits and no sensory deficits noted Sensorium / Orientation: awake and alert Speech: speech normal Psych affect normal Assessment & Plan Assessment/Plan (1) Alcohol withdrawal: PLAN: Plan 1. Acute alcohol withdrawal-patient will be given medication per protocol, he will be seen by addiction social secretary tomorrow #2 chronic alcoholism-complicates care, management, recovery, and prognosis #3 hypertension-patient will remain on his home medication, he will be adjusted as needed, blood pressure will be monitored #4 chronic depression-patient is on Cymbalta #5 polysubstance abuse-complicates care, management, recovery, and prognosis Total clinical time spent by myself addressing the patient's medical issues, reviewing all of his data, and collaborating with the patient's care team: 35- minute Charges/Coding Visit Charges Inpatient E&M: 03146 Subs Hosp L2 12/18/23 1001 <Electronically signed by Anatoly Peck DO> Cosigner Signature (if applicable): CC: ~ Signed [facility] Work Phone: 1([phone]) 188-174303-31-2024 Discharge summary Author Sloan Gonzalez [facility] December 17, 2023 10:36pm Note Date/Time December 17, 2023 1:5 4pm [facility] Medical Records Department [address] [place] [address] Emergency Department Summary 12/17/23 MR#: [id number] Acct: [id number] Name: GOODDANNYSLOAN HAWLEY HIREN Rep #:[id number] : 1970 53 From: Sloan Werner PCP: Care Physician,No Primary Status :ADM IN Location: [address] HPI <ROSA Araya - Last Filed: 12/17/23 15:58> History of Present Illness Chief Complaint: Substance Abuse Narrative Narrative: Patient presenting today requesting to detox from alcohol. He reports that he has detoxed in the past but never in this facility, the last time being last December. He reports that he has been drinking his entire adult life, he usually drinks about 1/5 of vodka per day. Today he had 3-4 drinks prior to arrival. He reports that he usually does go through withdrawal including shakes, sweats, and anxiety. He denies any history of withdrawal seizure. He reports that he does occasionally use other substances if they are available, last week he used methamphetamine and he does occasionally use marijuana. He denies a PMH of any chronic health conditions. [facility] <ROSA Araya - Last Filed: 12/17/23 15:58> [facility] Medical History (Updated 12/17/23 @ 15:58 by ROSA Araya) Anxiety Depression Hypertension Home Medications amlodipine 5 mg tablet 5 mg PO DAILY 12/17/23 [History Last Taken 12/17/23] buspirone 10 mg tablet 10 mg PO TID 12/17/23 [History Last Taken 12/17/23] duloxetine 60 mg capsule,delayed release 60 mg PO DAILY 12/17/23 [History Last Taken Unknown] hydroxyzine pamoate 25 mg capsule 50 mg PO TID PRN anxiety 12/17/23 [History Last Taken 12/17/23] ibuprofen 600 mg tablet 600 mg PO TID PRN pain 12/17/23 [History Last Taken 12/17/23] Allergy/AdvReac Type Severity Reaction Status Date / Time No Known Allergies Allergy Verified 12/17/23 13:28 Social History Smoking Status: Current every day smoker tobacco type: cigarettes and smokelesstobacco ROS <ROSA Araya - Last Filed: 12/17/23 15:58> ROS ED Constitutional Constitutional ED: Denies chills or fever(s) Cardiovascular Cardiovascular: Denies chest pain Respiratory/Chest Respiratory/Chest: Denies cough or dyspnea Gastrointestinal Gastrointestinal: Denies abdominal pain, nausea or vomiting Musculoskeletal Musculoskeletal: Denies arthralgias or myalgias Integumentary Denies rash Neurologic Neurologic: Denies weakness Psychiatric Psychiatric: Denies anxiety, depression, suicidal ideation or suicidal thoughts EXAM <ROSA Araya - Last Filed: 12/17/23 15:58> Physical Exam Const Vital Signs: 12/17/23 13:26 12/17/23 14:26 12/17/23 14:45 Temperature 97.6 F L Temperature Source Temporal Pulse Rate 83 75 75 Respiratory Rate 18 18 18 Blood Pressure 151/94 H 129/82 H 107/66 Blood Pressure Mean 113 97 78 Pulse Ox 95 93 91 Oxygen Delivery Method Room Air Room Air Positive well nourished, well developed and no apparent distress General Appearance ED: well developed HEENT Reports normocephalic and head/scalp atraumatic Mouth ED: Yes moist mucous membranes normal Eyes PERRL and EOMs intact bilaterally Neck full ROM and supple Chest Wall inspection of chest normal Resp normal respiratory effort and clear to auscultation bilaterally Cardio regular rate and regular rhythm GI soft to palpation, non-tender, non-distended and no masses Back/Spine normal ROM and normal to inspection Extremity normal to inspection and full ROM Neuro oriented x3, CN's II-XII intact bilaterally, moves all extremities, no focal motor deficits and no sensory deficits noted Sensorium / Orientation: awake and alert Psych mental status grossly normal and thought process normal Skin no rashes or lesions noted and no wounds <Dr. Sloan Gonzalez DO - Last Filed: 12/17/23 15:51> Physical Exam Const Vital Signs: 12/17/23 13:26 12/17/23 14:26 12/17/23 14:45 Temperature 97.6 F L Temperature Source Temporal Pulse Rate 83 75 75 Respiratory Rate 18 18 18 Blood Pressure 151/94 H 129/82 H 107/66 Blood Pressure Mean 113 97 78 Pulse Ox 95 93 91 Oxygen Delivery Method Room Air Room Air MDM <ROSA Araya - Last Filed: 12/17/23 15:58> [facility] Narrative Medical decision making narrative: Patient presenting today requesting detox from alcohol. He is nontoxic-appearing and in no acute distress. He does not feel he is going through withdrawal at this time as he drank prior to coming in. Labs will be obtained and I will speak with the hospitalist for admission. Lab Data Lab results narrative: AST 60, ALT 89, alkaline phosphatase 121, alcohol 148, positive for cannabinoids Labs: Laboratory Results - last 24 hr 12/17/23 12/17/23 14:20 14:25 WBC 6.5 RBC 4.90 Hgb 14.9 Hct 44.5 MCV 90.8 MCH 30.4 MCHC 33.5 RDW Std Deviation 49.9 H RDW Coeff of Jacy 15.1 H Plt Count 241 MPV 9.0 Immature Gran % (Auto) 0.300 Neut % (Auto) 61.8 Lymph % (Auto) 25.3 [place] % (Auto) 9.2 Eos % (Auto) 2.5 Baso % (Auto) 0.9 Absolute Neuts (auto) 4.0 Absolute Lymphs (auto) 1.65 Nucleated RBC % 0 Sodium 140 Potassium 4.1 Chloride 108 H Carbon Dioxide 25.0 Anion Gap 7 BUN 13 Creatinine 0.94 Estim Creat Clear Calc 113.55 Est GFR (MDRD) Af Amer 107 Est GFR (MDRD) Non-Af 89 BUN/Creatinine Ratio 13.8 Glucose 80 Calcium 8.7 Total Bilirubin 0.50 AST 60 H ALT 89 H Alkaline Phosphatase 121 H Total Protein 7.5 Albumin 3.4 Globulin 4.1 Albumin/Globulin Ratio 0.8 L Urine Opiates Screen NEGATIVE Urine Methadone Screen NEGATIVE Ur Barbiturates Screen NEGATIVE Ur Phencyclidine Scrn NEGATIVE Ur Amphetamines Screen NEGATIVE MDMA (Ecstasy) Screen NEGATIVE U Benzodiazepines Scrn NEGATIVE Urine Cocaine Screen NEGATIVE U Cannabinoids Screen POSITIVE H Ur Drug Screen Comment Ethyl Alcohol 148.0 <Dr. Sloan Gonzalez, DO - Last Filed: 12/17/23 15:51> [facility] Lab Data Attestation: I reviewed the patient's lab results. Labs: Laboratory Results - last 24 hr 12/17/23 12/17/23 14:20 14:25 WBC 6.5 RBC 4.90 Hgb 14.9 Hct 44.5 MCV 90.8 MCH 30.4 MCHC 33.5 RDW Std Deviation 49.9 H RDW Coeff of Jacy 15.1 H Plt Count 241 MPV 9.0 Immature Gran % (Auto) 0.300 Neut % (Auto) 61.8 Lymph % (Auto) 25.3 [place] % (Auto) 9.2 Eos % (Auto) 2.5 Baso % (Auto) 0.9 Absolute Neuts (auto) 4.0 Absolute Lymphs (auto) 1.65 Nucleated RBC % 0 Sodium 140 Potassium 4.1 Chloride 108 H Carbon Dioxide 25.0 Anion Gap 7 BUN 13 Creatinine 0.94 Estim Creat Clear Calc 113.55 Est GFR (MDRD) Af Amer 107 Est GFR (MDRD) Non-Af 89 BUN/Creatinine Ratio 13.8 Glucose 80 Calcium 8.7 Total Bilirubin 0.50 AST 60 H ALT 89 H Alkaline Phosphatase 121 H Total Protein 7.5 Albumin 3.4 Globulin 4.1 Albumin/Globulin Ratio 0.8 L Urine Opiates Screen NEGATIVE Urine Methadone Screen NEGATIVE Ur Barbiturates Screen NEGATIVE Ur Phencyclidine Scrn NEGATIVE Ur Amphetamines Screen NEGATIVE MDMA (Ecstasy) Screen NEGATIVE U Benzodiazepines Scrn NEGATIVE Urine Cocaine Screen NEGATIVE U Cannabinoids Screen POSITIVE H Ur Drug Screen Comment Ethyl Alcohol 148.0 Treatment and Re-Evaluation Narrative: I have personally performed a face to face assessment of the patient and have reviewed the RENA Note. I performed a substantive portion of the visit including all aspects of the following. My robb findings include: History: Patient presents requesting detox from alcohol. Patient states he drinks approximately 1/5 of liquor per day. Patient states his last drink was this morning. Patient states he had 3-4 drinks this morning to prevent shaking and tremors. Patient denies any seizures. Patient states he also developed some sweats and chills. Patient states he has been weaning himself off for the past several days. Patient states [facility]. Patient denies any suicidal or homicidal ideations. Exam: Vital signs are stable. Patient is afebrile. Patient is in no acute distress. Oral mucosa is pink and moist. Neck is supple. Trachea is midline. There is no JVD. Heart was regular rate and rhythm. Lungs are clear and equal bilaterally. Abdomen is soft. Bowel sounds are normal. There is no tenderness. Cranial nerves II through XII are intact. There are no focal motoror sensory deficits noted. Medical Decision Making: Medical screening labs will be obtained. CBC will be obtained to assess for leukocytosis and anemia. Comprehensive metabolic profilewill be obtained to assess for hepatic function, renal function, and electrolyteabnormality. Serum alcohol level will be obtained to assess for alcohol intoxication. Urine drug screen will be obtained to assess for substance abuse. CBC was reviewed and was within normal limits. Comprehensive metabolic profile was reviewed. AST was slightly elevated at 60 and ALT was slightly elevated at 89. Alkaline phosphatase was minimally elevated at 121. The remainder is within normal limits. Urine tox screen was reviewed and was positive for cannabinoids. Serum alcohol level was reviewed and was elevated at 148. Case was discussed with the hospitalist. He will admit the patient to his service. Patient understood and was agreeable with the plan. All questions were answered. Discharge Plan Dx/Rx/DC Orders Clinical Impression: Alcohol withdrawal, Alcohol intoxication, Polysubstance abuse Disposition Disposition: Acute Care Hospital [facility] What to do if you have Problems For any increased pain, shortness of breath, bleeding, nausea or vomiting, chestpain, or any unexpected problems, contact your Primary Care Provider. Call [facility] ([phone]) or report to the closest Emergency Room. Call 911 if necessary. 12/17/23 2236 <Electronically signed by Sloan Gonzalez DO> Cosigner Signature (if applicable): 12/17/23 1558 <Electronically signed by Lucretia LEE> CC: No Primary Care Physician ~ Signed [facility] Work Phone: 1(709) 810-394803-30-2024 History and physical note Author Sloan Villalobos [facility] December 17, 2023 4:18pm Note Date/Time December 17, 2023 4:1 4pm [facility] Medical Records Department [address] [place] [address] H&P Exam - Hospitalist 12/17/23 1611 MR#: [id number] Acct: [id number] Name: SLOAN HARVEY Rep #:[id number] : 1970 53 From: Sloan Villalobos DO PCP: Care Physician,No Primary Status :ADM IN Location: [place] [address] HPI - General General Date of Service: 12/17/23 Chief Complaint: Alcohol withdrawal HPI Narrative SLOAN HARVEY, is a 53 M who presents seeking treatment for alcohol withdrawal. Patient had been sober for period time but in the middle of September, started drinking again. Was drinking about 1/5 of liquor a day. Over the past week, hehas been attempting to taper that down. Has been working with [facility] want him to go through this withdrawal program here at [facility] before enrolling intothe residential program. Patient's last drink was this morning where he had a few drinks. Currently he has no withdrawal symptoms. [facility] Medical History Anxiety Depression Hypertension Home Medications amlodipine 5 mg tablet 5 mg PO DAILY 12/17/23 [History Last Taken 12/17/23] buspirone 10 mg tablet 10 mg PO TID 12/17/23 [History Last Taken 12/17/23] duloxetine 60 mg capsule,delayed release 60 mg PO DAILY 12/17/23 [History Last Taken 12/17/23] hydroxyzine pamoate 25 mg capsule 50 mg PO TID PRN anxiety 12/17/23 [History Last Taken 12/17/23] ibuprofen 600 mg tablet 600 mg PO TID PRN pain 12/17/23 [History Last Taken 12/17/23] Allergy/AdvReac Type Severity Reaction Status Date / Time No Known Allergies Allergy Verified 12/17/23 13:28 Family History (Updated 12/17/23 @ 16:[address] Sloan Villalobos DO) Other Alcoholism Social History (Updated 12/17/23 @ 16:[address] Sloan Villalobos DO) Smokeless tobacco user: other substance use type: marijuana and amphetamines ROS ROS Narrative All review of systems were negative except as mentioned above in the history of present illness and the other review of systems. Vital Signs Vital Signs Vital Signs: 12/17/23 13:26 12/17/23 14:26 12/17/23 14:45 Temperature 36.4 C L Temperature Source Temporal Pulse Rate 83 75 75 Respiratory Rate 18 18 18 Blood Pressure 151/94 H 129/82 H 107/66 Blood Pressure Mean 113 97 78 Pulse Ox 95 93 91 Oxygen Delivery Method Room Air Room Air 12/17/23 15:45 12/17/23 16:00 Temperature 36.8 C 36.8 C Temperature Source Oral Pulse Rate 73 73 Respiratory Rate 18 18 Blood Pressure 129/82 H 129/82 H Blood Pressure Mean 97 97 Pulse Ox 95 95 Oxygen Delivery Method Room Air Weight Weight: 110.45 kg Body Mass Index (BMI) 34.0 Physical Exam Narrative -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 Location of patient: [place] PCP: Peggy Nicole DO History of Present Illness Sloan Harvey is a 53 year old male who presents for a follow-up. HTN: - Fhx of HTN - Has been checking his BP 2-3 times a week - BP has been between 130s/upper 90s-100s - Does not have baseline swelling with his legs Smoking Cessation: - Is down to half a cigarette a day - Previously was on Nicoderm and used them about 3-5 times a week, has been using the 6 mg Zyn pouches, would like to try a lower dose of the Nicoderm patches Prediabetes: - Does a lot of indulging Plantar Fasciitis: - Has plantar fasciitis in both of his feet - Recently bought new inserts Social History Tobacco Use Smoking status: Every Day Types: Cigarettes Smokeless tobacco: Never Tobacco comments: 3-5 cigs currently Substance Use Topics Alcohol use: Not Currently Comment: 41 days sober Drug use: Not Currently Current Outpatient Medications Medication Sig amLODIPine (NORVASC) 5 mg tablet Take 1 tablet by mouth once daily. nicotine (NICODERM CQ) 14 mg/24 hr Apply 1 Patch as directed every 24 hours. DULoxetine (CYMBALTA) 60 mg capsule Take 1 capsule by mouth once daily. hydrOXYzine pamoate (VISTARIL) 25 mg capsule Take 2 capsules by mouth three times daily as needed. ibuprofen (MOTRIN) 600 mg tablet Take 1 tablet by mouth three times daily as needed for pain. Take with food. Do not use with other NSAIDs. guanFACINE (TENEX) 1 mg tablet Take 1 mg by mouth daily at bedtime. No current facility-administered medications for this visit. Video Exam (Examination performed via Video enabled technology) General appearance: Alert, oriented, pleasant, in NAD :Yes Ill appearing :No Lethargic appearing :No Respiratory distress :No Assessment/Plan: 1. Hypertension, essential - ICD9: 401.9, ICD10: I10 (primary diagnosis) - Pt reports several home readings of diastolic between 90-100 - Weight loss, low salt diet, and exercise advised - Start Amlodipine 5 mg once daily. Reviewed potential side effects not limited to hypotension and angioedema. - Continue to monitor BP 2-3 times a week - Have BP checked in-person at annual visit or at [facility] visit prior to f/u - F/u on 06/30/2023 at 2:40 AM or prn 2. Cigarette nicotine dependence with other nicotine-induced disorder - ICD9: 292.89, ICD10: F17.218 - NICOTINE 14 MG/24 HR DAILY TRANSDERMAL PATCH prescribed. Apply 1 patch every 24 hours. - Tapering down from 21 mg 3. Plantar fasciitis, bilateral - ICD9: 728.71, ICD10: M72.2 - CONSULT TO PODIATRY - Night splinting discussed - Will send home exercises for plantar fasciitis for stretching 4. Preventative Care - Reviewed cholesterol labs with pt with new data ASCVD score 10% so statin would be indicated. If he quits smoking, score drops to 5% and there is no indication for statin. He is actively trying to quit smoking and is down to half a cigarette a day. He would like to hold off of on statin therapy. Will monitor and reassess. - Red flags discussed for need for in person care - All questions answered I have communicated my name and active licensure. The patient's identity and physical location wereverified at the time of this visit. Either the patient or their legal self pay representative has been informed of the risks and benefits of -- and alternatives to -- treatment through a remote evaluation andconsents to proceed with the evaluation remotely. Scribe Attestation: By signing my name below, IMely, attest that this documentation has been prepared under the direction and in the presence of Peggy Nicole D.O. Electronically Signed: Mely Lopezibkrista. June 07, 2023 1:41 PM. Physician Attestation: Peggy Bang DO, personally performed the services described in this documentation. All medical record entries made by the scribe were at my direction and in my presence. I have reviewed the chart and discharge instructions (if applicable) and agree that the record reflects my personal performance and is accurate and complete. documented in this encounterK[facility]-19-2023 Nurse Note* Angela Rosenberg MA - 06/07/2023 1:00 PM EDT Items addressed in this encounter: Virtual Visit Pre Check In 3rd attempt to reach patient on both lines listed no answer Angela Rosenberg MA June 07, 2023 1:01 PM 1:01 PM * Golden Alvarado RN - 06/07/2023 11:22 AM EDT Items addressed in this encounter: Other VV second attempt, LVM Golden Alvarado RN June 07, 2023 11:22 AM 11:22 AM * Golden Alvarado RN - 06/07/2023 10:00 AM EDT Items addressed in this encounter: Other VV first attempt, LVAnalisa Alvarado RN June 07, 2023 10:02 AM 10:02 AM documented in this encounterK[facility]08-28-2023 Miscellaneous Notes* Telephone Encounter - Angela Rosenberg MA - 05/16/2023 8:14 AM EDT Items addressed in this encounter: Telephone Encounter Refill Encounter Medication already sent on 05/13/23 Angela Rosenberg MA May 16, 2023 8:17 AM 8:17 AM documented in this encounterKet[facility]08-25-2023 Miscellaneous Notes* Telephone Encounter - Angela Rosenberg MA - 05/13/2023 8:48 AM EDT Items addressed in this encounter: Refill Encounter MyChart Encounter Patient seen 04/19/23 Medication pended please advise Angela Rosenberg MA May 13, 2023 8:50 AM 8:50 AM documented in this encounterKet[facility]08-02-2023 Miscellaneous Notes* Telephone Encounter - Alecia Bess LISW - 04/20/2023 9:12 AM EDT Behavioral Health Social Work Progress Note Patient identified for [facility] from: PCP Reason for referral: Resources Behavioral Health Resources: Psychiatry med management, Psychology - talk therapy [facility] encounter type: Telephone Encounter, MyChart Message Attempts to Outreach: 1 attempt Referral made: Psychiatry - External, Psychology - External, Psychiatry - Internal, Psychology - Internal Psychiatry-Internal referral type: Medication Management Psychology-Internal referral type: Therapy Psychology-External referral type: Therapy Psychiatry-External referral type: Medication Management Reason for external referral: Wait times at [facility] too long Final Disposition: Resources given Patient Discharged?: Yes Patient reported that caregiver was able to meet their needs today?: Yes [facility] consult received for PTSD, WHITNEY, and hx of alcoholism (now sober). SW placed telephone call at the request of the PCP to discuss behavioral health needs and provide referrals for outpatient support. Patient agreeable to receive resources via [employer]. Will send the following: [facility] [phone] [id number] [facility] Support [facility], [place] [address] [facility] [address] [place] [address] [address] [address] [facility] [address] [place] [address] -[address] [place] [address] JUNIOR Knight, ACM-SW April 20, 2023 documented in this encounterKettering [facility]08-01-2023 Instructions* Patient Instructions* Peggy Nicole DO - 04/19/2023 2:56 PM EDT The central scheduling phone number is [phone]. documented in this encounterKettering Health [facility]08-01-2023 History of Present illness Narrative* Peggy Nicole DO - 04/19/2023 2:47 PM EDT PHQ-9 02/16/2023 04/19/2023 Score 0 3 WHITNEY - 7 SCORES 04/19/2023 WHITNEY-7 Score 8 * Peggy Nicole DO - 04/19/2023 2:47 PM EDT Telemedicine Visit - Distance Health Virtual Visit Note Patient seen on [employer] video visit platform. Location of patient: [place] PCP: Dae Mari APRN.MAMMOGRAPHY TECHNICIAN History of Present Illness Sloan Harvey is a 53 year old male with Pmhx of Alcoholism, PTSD, and Anxiety who presents to establish with [facility]. - Looking to establish with a PCP DDD: - Had a spinal fusion done for the lumbar in 2005, DDD in the lower 3 joints - Had a f/u 10 years later due to having some sensations, was unsure if the fusion had fully taken or not - Lost weight, did PT, and strengthened his core after his surgery - Has numbness and tingling on the outside of his big toes, is manageable but wants to have a f/u for his back, has a restless leg feeling - Has stiffness when he gets up and moves H/o Alcoholism: - Currently sober - Says he is trying to go back to work, says when he was going to work in the past he relapsed - In a recovery clinic Anxiety, Depression, and PTSD: - On Cymbalta 60 mg once daily and Vistaril 25 mg prn - Was started on Guanfacine 1 mg for anxiety about a week ago - Has been leveled with his depression, only had depression during relapse - Interested in talk therapy Colon Cancer Screening: - Has had done colon cancer screening years ago - Denies bowel habit changes, hematochezia, h/o polyps PAST MEDICAL HISTORY Diagnosis Date DDD (degenerative disc disease), lumbar History of alcoholism (HCC) SVT (supraventricular tachycardia) (HCC) s/p ablation TIA (transient ischemic attack) PAST SURGICAL HISTORY Procedure Laterality Date PAST SURGICAL HISTORY OF 2006 spinal fusion- lumbar FAMILY HISTORY Problem Relation Age of Onset Mental illness Mother Alcohol/Drug Father Hypertension Other Social History Tobacco Use Smoking status: Every Day Types: Cigarettes Smokeless tobacco: Never Substance Use Topics Alcohol use: Not Currently Comment: 41 days sober Drug use: Not Currently Current Outpatient Medications Medication Sig DULoxetine (CYMBALTA) 60 mg capsule Take 60 mg by mouth once daily. hydrOXYzine pamoate (VISTARIL) 25 mg capsule Take 50 mg by mouth three times daily as needed. ibuprofen (MOTRIN) 600 mg tablet Take 600 mg by mouth three times daily as needed. No current facility-administered medications for this visit. ALLERGIES Not on File Video Exam (Examination performed via Video enabled technology) General appearance: Alert, oriented, pleasant, in NAD :Yes Ill appearing :No Lethargic appearing :No Respiratory distress :No Assessment/Plan: 1. H/O spinal fusion - ICD9: V45.4, ICD10: Z98.1 (primary diagnosis) 2. DDD (degenerative disc disease), lumbar - ICD9: 722.52, ICD10: M51.36 - Does experienced some stiffness and skin sensation disturbance in his toes - [facility] 3. PTSD (post-traumatic stress disorder) - ICD9: 309.81, ICD10: F43.10 4. History of alcoholism (HCC) - ICD9: V11.3, ICD10: F10.21 5. WHITNEY (generalized anxiety disorder) - ICD9: 300.02, ICD10: F41.1 - Stable on current meds - He wants to connect with a therapist and psychiatrist - CONSULT TO [facility] 6. Screening for colon cancer - ICD9: V76.51, ICD10: Z12.11 - Discussed colon cancer screening options. Stated Colonoscopy is the gold standard but he is currently in an alcohol recovery clinic and is concerned the anesthesia will impact his drug screenings - Discussed doing COLOGUARD testing until he has graduated the program 7. Preventative health care - ICD9: V70.0, ICD10: Z00.00 - Check LIPID PANEL BASIC, COMP METABOLIC PANEL, and HGB A1C - Diastolic BP elevated at 91 at last visit in January - States his BP has been lower since then. He has excess to a nurse who can take his BP at the recovery center. Recommend getting a few readings an then message me with the results - Healthy diet and weight loss recommended - Pt would like to establish with virtual primary care. Pt is aware that he will need to schedule an in person yearly physical exam. Pt is aware that he will need to schedule an in person evaluation regarding concerns that cannot be managed virtually. - Red flags discussed for need for in person care - All questions answered I have communicated my name and active licensure. The patient's identity and physical location wereverified at the time of this visit. Either the patient or their legal self pay representative has been informed of the risks and benefits of -- and alternatives to -- treatment through a remote evaluation andconsents to proceed with the evaluation remotely. Scribe Attestation: By signing my name below, Mely Bang, attest that this documentation has been prepared under the direction and in the presence of Peggy Nicole D.O. Electronically Signed: Mely Lopezibkrista. April 19, 2023 2:47 PM. Physician Attestation: Peggy Bang DO, personally performed the services described in this documentation. All medical record entries made by the scribe were at my direction and in my presence. I have reviewed the chart and discharge instructions (if applicable) and agree that the record reflects my personal performance and is accurate and complete. documented in this encounterKettering Health [facility]08-01-2023 Nurse Note* Golden Alvarado RN - 04/19/2023 12:20 PM EDT Items addressed in this encounter: Other VV pre checked, name and location verified, aware of tele health visit with A Bonnie Danielle RN April 19, 2023 12:21 PM 12:21 PM * Golden Alvarado RN - 04/19/2023 11:34 AM EDT Items addressed in this encounter: Other VV second attempt, PIEDAD Alvarado RN April 19, 2023 11:34 AM 11:34 AM * Golden Alvarado RN - 04/19/2023 10:14 AM EDT Items addressed in this encounter: Other VV first attempt, PIEDAD Alvarado RN April 19, 2023 10:14 AM 10:14 AM documented in this encounterKettering [facility]06-05-2023 Miscellaneous Notes* Telephone Encounter - Regina Figueroa MA - 02/21/2023 2:09 PM EDT The referral placed for February 21, 2023 has been submitted via the [facility] Internal Referral Request form on the [facility] Appointment Portal. Confirmation # [id number] Regina Figueroa MA documented in this encounterKettering Health [facility]05-31-2023 NoteHNO ID: [id number] Author: Dae Mari APRN.MAMMOGRAPHY TECHNICIAN Service: ? Author Type: Nurse Practitioner Type: Progress Notes Filed: 02/16/2023 4:31 PM Note Text: [facility] [address] [place] [address] Date of Evaluation: 02/16/2023 Patient Name: Sloan Harvey : 1970 Chief Complaint: Patient presents with: New Patient: Establish care. Bilateral ear wax ( would like to have flushed) Subjective HPI Mr. Harvey is a 53 year old male who presents for: B/L ear lavage. He reports recurrent episodes of impacted cerumen and fullness in his ears. Denies any fever or chills. Or loss of hearing. He also reports intermittent ear drainage happens every 6 months to a years. Last for a day or two and then subsides. He does not assocaite any other symptoms with the drainage. Review of Systems Constitutional: Negative for activity change, appetite change, chills and fever. HENT: Negative for ear pain, hearing loss, sinus pressure, sinus pain, sore throat and trouble swallowing. Ear fullness Eyes: Negative for visual disturbance. Respiratory: Negative for cough, chest tightness, shortness of breath and wheezing. Cardiovascular: Negative for chest pain, palpitations and leg swelling. Gastrointestinal: Negative for abdominal pain, diarrhea, nausea and vomiting. Genitourinary: Negative for dysuria and frequency. Musculoskeletal: Negative for arthralgias and myalgias. Skin: Negative for pallor, rash and wound. Neurological: Negative for dizziness, light-headedness, numbness and headaches. Psychiatric/Behavioral: Negative for behavioral problems, confusion, hallucinations and suicidal ideas. History reviewed. No pertinent past medical history. History reviewed. No pertinent surgical history. History reviewed. No pertinent family history. 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 hydrOXYzine pamoate (VISTARIL) 25 mg capsule Take 50 mg by mouth three times daily as needed. ibuprofen (MOTRIN) 600 mg tablet Take 600 mg by mouth three times daily as needed. No current facility-administered medications for this visit. I have confirmed and edited as necessary the chief complaint, medications, past medical, family and social histories obtained by others. Objective BP 133/91 Pulse 75 Resp 18 Ht 5' 10 (1.78m) Wt 233 lb (105.7kg) SpO2 97% BMI 33.43 kg/(m2). Physical Exam Vitals reviewed. Constitutional: General: He is not in acute distress. Appearance: Normal appearance. He is normal weight. HENT: Head: Normocephalic. Right Ear: There is no impacted cerumen. Left Ear: There is impacted cerumen. Eyes: Extraocular Movements: Extraocular movements intact. Conjunctiva/sclera: Conjunctivae normal. Pupils: Pupils are equal, round, and reactive to light. Cardiovascular: Rate and Rhythm: Normal rate and regular rhythm. Pulses: Normal pulses. Heart sounds: Normal heart sounds. No murmur heard. No friction rub. No gallop. Pulmonary: Effort: Pulmonary effort is normal. Breath sounds: Normal breath sounds. No wheezing, rhonchi or rales. Abdominal: General: Bowel sounds are normal. Palpations: Abdomen is soft. Musculoskeletal: General: Normal range of motion. Cervical back: Normal range of motion. Right lower leg: No edema. Left lower leg: No edema. Lymphadenopathy: Cervical: No cervical adenopathy. Skin: General: Skin is warm and dry. Findings: No lesion or rash. Neurological: General: No focal deficit present. Mental Status: He is alert and oriented to person, place, and time. Mental status is at baseline. Psychiatric: Mood and Affect: Mood normal. Behavior: Behavior normal. ASSESSMENT/PLAN: 1. Impacted cerumen of left ear - ICD9: 380.4, ICD10: H61.22 (primary diagnosis) - Unable to remove cerumen from left ear canal. Advised patient to use OTC debrox for the next week and follow up for an additional ear lavage. 2. Ear drainage, unspecified laterality - ICD9: 388.60, ICD10: H92.10 - Pt reports intermittent ear drainage that is not the color or constancy of cerumen and would like to see ENT. 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 Discussed the above with the patient using shared decision making. The patient is in agreement with the diagnostic and treatment plans.[facility]05-31-[facility] History of Present illness Narrative* Dae Mari APRN.MAMMOGRAPHY TECHNICIAN - 02/16/2023 4:03 PM EDT Images from the original note were not included. [facility] Medicine [address] [place] [address] Date of Evaluation: 02/16/2023 Patient Name: Sloan Harvey : 1970 Chief Complaint: Patient presents with: New Patient: Establish care. Bilateral ear wax ( would like to have flushed) Subjective HPI Mr. Harvey is a 53 year old male who presents for: B/L ear lavage. He reports recurrent episodes of impacted cerumen and fullness in his ears. Denies any fever or chills. Or loss of hearing. He also reports intermittent ear drainage happens every 6 months to a years. Last for a day or two and then subsides. He does not assocaite any other symptoms with the drainage. Review of Systems Constitutional: Negative for activity change, appetite change, chills and fever. HENT: Negative for ear pain, hearing loss, sinus pressure, sinus pain, sore throat and trouble swallowing. Ear fullness Eyes: Negative for visual disturbance. Respiratory: Negative for cough, chest tightness, shortness of breath and wheezing. Cardiovascular: Negative for chest pain, palpitations and leg swelling. Gastrointestinal: Negative for abdominal pain, diarrhea, nausea and vomiting. Genitourinary: Negative for dysuria and frequency. Musculoskeletal: Negative for arthralgias and myalgias. Skin: Negative for pallor, rash and wound. Neurological: Negative for dizziness, light-headedness, numbness and headaches. Psychiatric/Behavioral: Negative for behavioral problems, confusion, hallucinations and suicidal ideas. History reviewed. No pertinent past medical history. History reviewed. No pertinent surgical history. History reviewed. No pertinent family history. 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 hydrOXYzine pamoate (VISTARIL) 25 mg capsule Take 50 mg by mouth three times daily as needed. ibuprofen (MOTRIN) 600 mg tablet Take 600 mg by mouth three times daily as needed. No current facility-administered medications for this visit. I have confirmed and edited as necessary the chief complaint, medications, past medical, family andsocial histories obtained by others. Objective BP 133/91 Pulse 75 Resp 18 Ht 5' 10 (1.78m) Wt 233 lb (105.7kg) SpO2 97% BMI 33.43 kg/(m^2). Physical Exam Vitals reviewed. Constitutional: General: He is not in acute distress. Appearance: Normal appearance. He is normal weight. HENT: Head: Normocephalic. Right Ear: There is no impacted cerumen. Left Ear: There is impacted cerumen. Eyes: Extraocular Movements: Extraocular movements intact. Conjunctiva/sclera: Conjunctivae normal. Pupils: Pupils are equal, round, and reactive to light. Cardiovascular: Rate and Rhythm: Normal rate and regular rhythm. Pulses: Normal pulses. Heart sounds: Normal heart sounds. No murmur heard. No friction rub. No gallop. Pulmonary: Effort: Pulmonary effort is normal. Breath sounds: Normal breath sounds. No wheezing, rhonchi or rales. Abdominal: General: Bowel sounds are normal. Palpations: Abdomen is soft. Musculoskeletal: General: Normal range of motion. Cervical back: Normal range of motion. Right lower leg: No edema. Left lower leg: No edema. Lymphadenopathy: Cervical: No cervical adenopathy. Skin: General: Skin is warm and dry. Findings: No lesion or rash. Neurological: General: No focal deficit present. Mental Status: He is alert and oriented to person, place, and time. Mental status is at baseline. Psychiatric: Mood and Affect: Mood normal. Behavior: Behavior normal. ASSESSMENT/PLAN: 1. Impacted cerumen of left ear - ICD9: 380.4, ICD10: H61.22 (primary diagnosis) - Unable to remove cerumen from left ear canal. Advised patient to use OTC debrox for the next weekand follow up for an additional ear lavage. 2. Ear drainage, unspecified laterality - ICD9: 388.60, ICD10: H92.10 - Pt reports intermittent ear drainage that is not the color or constancy of cerumen and would liketo see ENT. 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 Discussed the above with the patient using shared decision making. The patient is in agreement with the diagnostic and treatment plans. documented in this encounterKet[facility]03-02-2022 Telephone encounter Note * Telephone Encounter - Sari Wilson MA - 11/18/2021 1:24 PM EST refills remaining [id number] Miscellaneous Notes* Telephone Encounter - Sari Wilson MA - 11/18/2021 1:24 PM EST refills remaining documented in this [id number] Miscellaneous Notes* Assessment & Plan Note - Alda Maria MD - 10/26/2021 5:44 AM EST Associated Problem(s): Anxiety with depression Stable Follows with psych through [facility] * Assessment & Plan Note - Alda Maria MD - 10/26/2021 5:39 AM EST Associated Problem(s): Chronic low back pain Will continue ibuprofen as it helps. Instructed to discontinue Naproxen. * Assessment & Plan Note - Alda Maria MD - 10/26/2021 5:38 AM EST Associated Problem(s): Uncomplicated alcohol dependence (HCC) Working on sobriety Lives in [facility] stable * Assessment & Plan Note - Alda Maria MD - 10/26/2021 5:38 AM EST Associated Problem(s): HSV-1 infection constclint Valtrex documented in this [id number] History of Present illness Narrative* Andre Duong, DPM - 10/15/2021 10:04 AM EST Subjective: Patient ID: Sloan Harvey is a 51 y.o. male. HPI: 5 foot 10 and 239 pound BMI of 34.3, 51-year-old male presents this date for evaluation. Patient was seen here for plantar fasciitis on his right he then twisted his foot and injured it on the left 9 days ago was seen at [place] ED and was diagnosed with a fracture was provided a cam walker and crutches. Patient for the most part is utilizing them however he is in regular boots this date and yesterday because he states he will not wear that or use of crutches on public transportation.Patient presents this date stating he does have some discomfort which is about a 4/10. Patient is here today for evaluation recommendations following COVID-19 guidelines. Patient's comorbidities are l isted below The following portions of the patient's history were reviewed and updated as appropriate: allergies, current medications, past family history, past medical history, past social history, past surgicalhistory and problem list. Review of Systems Patient Active Problem List Diagnosis Chronic low back pain HSV-1 infection Uncomplicated alcohol dependence (HCC) Objective: Physical Exam Constitutional: Appearance: Normal appearance. He is obese. Cardiovascular: Rate and Rhythm: Normal rate. Pulses: Normal pulses. Pulmonary: Effort: Pulmonary effort is normal. Musculoskeletal: General: Swelling present. Skin: General: Skin is warm and dry. Capillary Refill: Capillary refill takes less than 2 seconds. Neurological: General: No focal deficit present. Mental Status: He is alert and oriented to person, place, and time. Psychiatric: Mood and Affect: Mood normal. Behavior: Behavior normal. Thought Content: Thought content normal. Judgment: Judgment normal. Left Ankle Exam Tenderness Left ankle tenderness location: Lateral aspect of foot left. Swelling: mild Range of Motion Dorsiflexion: normal Plantar flexion: normal Comments: Vascular findings are normal some edema is noted laterally on the foot, left. Integument: Skin intact no open lesions or signs of infection Neurologic: No abnormalities identified Lymphatic: No disruption no lymphedema edema left the secondary to injury MSK: Discomfort lateral aspect of the foot could not correlated to the area of injury Neurologic Exam Mental Status Oriented to person, place, and time. No results found. Assessment/Plan: Impression: Fracture base of the fifth metatarsal left foot Plan: Patient educated on findings. Discussed with him immobilization in cam walker and resuming this since he however he has a cam walker and crutches. Discussed with him daily aspirin and vitamin Dsupplementation which he get OTC. We will see him back in 1 month for reevaluation and x-rays on his next visit left 3 views. Call for any questions or concerns No diagnosis found. No orders of the defined types were placed in this encounter. * Kayli Mendoza MA - 10/15/2021 9:42 AM EST Fracture Follow Up Patient Sloan Gonzalezpedro 10/15/21 Date of Injury: 9 days ago Fracture Site: foot Laterality: Left Cast/Splint/Brace/Immobilizer/Sling: No Doing Well: No There is no height or weight on file to calculate BMI. There were no vitals taken for this visit. Pain: positive Numbness/Tingling: negative Physical Therapy: No Pain Medications: IBU 200 MG PRN Refill Request: No Refill Due: No Kayli Mendoza MA documented in this [id number] History of Present illness Narrative* Alda Maria MD - 10/14/2021 11:37 AM EST Sloan Harvey is a 51 y.o. male new patient to establish care Assessment/Plan: Problem List Items Addressed This Visit Other Uncomplicated alcohol dependence (HCC) - Primary Working on sobriety Lives in [facility] stable HSV-1 infection constinue Valtrex Relevant Medications valACYclovir (VALTREX) 500 MG tablet Chronic low back pain Will continue ibuprofen as it helps. Instructed to discontinue Naproxen. Anxiety with depression Stable Follows with psych through [facility] For any new medications prescribed today, patient was educated about indications for the medication, how to take the medication and potential side effects of the medications. No follow-ups on file. HPI Anxiety with depression Stable Managed by psych at [facility] Chronic low back pain Non radiating, bilateral No bowel or bladder incontinence Dependence d/o Alcohol, THC, ect Sober since December 2020 In [facility] living Patient Active Problem List Diagnosis Chronic low back pain HSV-1 infection Uncomplicated alcohol dependence (HCC) Anxiety with depression Past Surgical History: Procedure Laterality Date CARDIAC SURGERY SPINAL FUSION TONSILLECTOMY 1970? Social History Socioeconomic History Marital status: Single Tobacco Use Smoking status: Current Every Day Smoker Packs/day: 0.50 Years: 19.00 Pack years: 9.50 Types: Cigarettes Smokeless tobacco: Never Used Vaping Use Vaping Use: Never used Substance and Sexual Activity Alcohol use: Not Currently Alcohol/week: 0.0 standard drinks Drug use: Not Currently Sexual activity: Not Currently Current Outpatient Medications Medication Sig Dispense Refill DULoxetine (CYMBALTA) 60 MG capsule naproxen (Naprosyn) 500 MG tablet Take 1 (one) tablet (500 mg total) by mouth 2 (two) times a day with meals . 60 tablet 2 ibuprofen (ADVIL,MOTRIN) 600 MG tablet Take 1 (one) tablet (600 mg total) by mouth every 6 (six) hours as needed for pain . 90 tablet 2 valACYclovir (VALTREX) 500 MG tablet Take 1 (one) tablet (500 mg total) by mouth daily . 90 tablet 3 No current facility-administered medications for this visit. Family History Problem Relation Age of Onset No Known Problems Mother Review of Systems Physical Exam: BP 134/80 (BP Location: Left arm, Patient Position: Sitting, BP Cuff Size: X- large Adult) Pulse 88 Temp 97 F (36.1 C) (Temporal) Resp 18 Ht 5' 10 Wt 108.4 kg (239 lb) SpO2 94% BMI 34.29 kg/m Wt Readings from Last 3 Encounters: 10/15/21 108.4 kg (239 lb) 10/14/21 108.4 kg (239 lb) 10/09/21 108.9 kg (240 lb) BP Readings from Last 3 Encounters: 10/14/21 134/80 10/09/21 (!) 145/101 09/07/21 129/82 Physical Exam Constitutional: General: He is not in acute distress. Appearance: Normal appearance. He is not ill-appearing, toxic-appearing or diaphoretic. Cardiovascular: Rate and Rhythm: Normal rate. Pulmonary: Effort: Pulmonary effort is normal. No respiratory distress. Neurological: General: No focal deficit present. Mental Status: He is alert and oriented to person, place, and time. Psychiatric: Mood and Affect: Mood normal. Behavior: Behavior normal. Thought Content: Thought content normal. Judgment: Judgment normal. documented in this [id number] History of Present illness Narrative* Andre Duong, ASHLEY - 10/01/2021 10:30 AM EST Subjective: Patient ID: Sloan Harvey is a 51 y.o. male. HPI: This 5 feet 10 inches 230 pound BMI 34.1, 51-year-old male presents this date for evaluation of plantar fasciitis and some tendon type discomfort on his right foot. Patient does have spinal issues and gets some tingling and numbness in his foot. Patient admits the pain is at the heel and alongthe longitudinal arch. Patient denies any injury or traumatic event. Patient presents weightbearingand shoe gear without an appreciable limp. Patient presents following COVID-19 guidelines. Patient states the pain can reach a 7/10. Patient admits the symptoms are getting worse over the last 7 to 8years but this may be in conjunction with his spinal issue and he states that he is a recovering alc oholic. Patient was seen in urgent care and is here today for recommendations. Patient has taken ibuprofen. Patient denies injections previous surgery or imaging. The following portions of the patient's history were reviewed and updated as appropriate: allergies, current medications, past family history, past medical history, past social history, past surgicalhistory and problem list. Review of Systems There is no problem list on file for this patient. Objective: Physical Exam Constitutional: Appearance: Normal appearance. He is obese. HENT: Head: Normocephalic. Cardiovascular: Rate and Rhythm: Normal rate and regular rhythm. Pulses: Normal pulses. Pulmonary: Effort: Pulmonary effort is normal. Skin: General: Skin is warm and dry. Capillary Refill: Capillary refill takes less than 2 seconds. Neurological: General: No focal deficit present. Mental Status: He is alert and oriented to person, place, and time. Psychiatric: Mood and Affect: Mood normal. Behavior: Behavior normal. Thought Content: Thought content normal. Judgment: Judgment normal. Right Ankle Exam Tenderness Right ankle tenderness location: Plantar heel and arch. Swelling: none Range of Motion Dorsiflexion: normal Plantar flexion: normal Eversion: normal Inversion: normal Muscle Strength Dorsiflexion: 5/5 Plantar flexion: 5/5 Anterior tibial: 5/5 Posterior tibial: 5/5 Gastrocsoleus: 5/5 Peroneal muscle: 5/5 Tests Anterior drawer: negative Varus tilt: negative Comments: Vascular: Pedal pulses are 2/4 CFT is equal to 3 seconds. There is no edema erythema ecchymosis or temperature change of the right compared to left Lymphatic: No disruption no lymphedema Neurologic: Sensation is grossly intact although he has a history of spinal issues they are not reproducible on examination this date. There is no paralysis spasticity or atrophy Integument: Skin intact without any open lesions or signs of infection with normal hair growth and distribution and tone and morphology MSK: Patient's mass power tone is normal for age gender and body habitus she can dorsiflex plantarflex invert and scott. Patient has tightness of his plantar fascia as well as his gastrocnemius. Patient has some discomfort over the lateral column of the foot at the fourth-fifth metatarsal cuboid articulation and it appears to be compensatory. Patient does have a flatfoot type architecture but notexquisitely. Left Ankle Exam Left ankle exam is normal. Range of Motion The patient has normal left ankle ROM. Muscle Strength The patient has normal left ankle strength. Neurologic Exam Mental Status Oriented to person, place, and time. No results found. Assessment/Plan: Impression: Plantar fasciitis subacute, right. This is but both insertional and generalized. There is gastrocnemius equinus. Plan: Patient educated on findings. Discussed with him the etiology course and treatment options. Recommend stretching exercises and they were dispensed this date. Discussed with him OTC orthotics and information was supplied this date. Discussed with him a Medrol Dosepak since he is subacute in nature followed by [facility] and after review risk and benefits those prescriptions were sent to his pharmacy. We will see him back in 4 to 6 weeks and consider other modalities if he is not showing significant improvement including PT, injections, etc. 30 minutes spent with patient in consultation evi. 1. Gastrocnemius equinus, unspecified laterality 2. Plantar fasciitis of right foot 3. Pes planus, unspecified laterality 4. Peroneal tendonitis, right No orders of the defined types were placed in this encounter. documented in this [id number] Instructions* Patient Instructions* Thomas Kay DO - 09/07/2021 6:10 PM EST Images from the original note were not included. It has been recommended that you see a specialist, Podiatry , for your complaints today Call to schedule an appointment with the specialist as recommended today See contact information for the specialist office in your discharge instructions Follow up with your PCP in 7 days or sooner if not improving. If you do not have a PCP please call or [phone] to locate a local PCP acceptingnew patients or you can contact your health insurance benefit provider to locate one covered under your plan. You may also go to [facility]'s website at [employer] and use the Find-A-Doc feature to locate and possibly even schedule an appointment to establish care with a PCP You may try [facility] if your work hours conflict with seeing a PCP Address: [address] [place] [address] OR [facility] [place] next to the [facility] [address] [place] [address] OR [facility] [address], [place] [address] OR [facility] [place] [address], [address] [place] [address] Go to Emergency Room immediately for worsening symptoms or development of new concerning symptoms. See handout given today on plantar fasciitis Elevate, and rest affected joint as instructed Apply ice to the affected joint 3-4 times daily for the next 3-4 days Cold packs (bagged frozen peas or corn) work well for pain and/or swelling. If you use ice, always place a towel between the ice and your skin (to avoid frostbite) or use an ice bag. Apply ice/cold pack for 10-20 minutes at a time, with at least 20 minutes between applications. A prescription for Prednisone or other oral steroids was given today. Please be aware that your glucose levels will be elevated while on this medication but should return to baseline after you stop the medication. Monitor your glucose level closely if you are diabetic. Steroids can offer side effects of anxiety, depression, nervousness, jitteryness, insomnia, stomachupset, stomach ulceration, worsening blood sugar or blood pressure, among others Avoid taking Ibuprofen or other similar medications such as Advil, Naprosyn, Aleve while taking prednisone. You may take Tylenol up to 1000 mg every 8 hrs for pain or fever if needed while on prednisone Please fill your prescriptions and take all medications as directed even if you begin to feel better before you run out of medicine. Risks, benefits, and side effects of medicine(s) discussed, go to ER for severe reaction. Recommend weight loss as part of your retirement treatment plan Plantar Fasciitis: Care Instructions Overview Plantar fasciitis is pain and inflammation of the plantar fascia, the tissue at the bottom of your foot that connects the heel bone to the toes. The plantar fascia also supports the arch. If you strain the plantar fascia, it can develop small tears and cause heel pain when you stand or walk. Plantar fasciitis can be caused by running or other sports. It also may occur in people who are overweight or who have high arches or flat feet. You may get plantar fasciitis if you walk or stand forlong periods, or have a tight Achilles tendon or calf muscles. You can improve your foot pain with rest and other care at home. It might take a few weeks to a fewmonths for your foot to heal completely. Follow-up care is a robb part of your treatment and safety. Be sure to make and go to all appointments, and call your doctor if you are having problems. It's also a good idea to know your test resultsand keep a list of the medicines you take. How can you care for yourself at home? Rest your feet often. Reduce your activity to a level that lets you avoid pain. If possible, do notrun or walk on hard surfaces. Take pain medicines exactly as directed. ? If the doctor gave you a prescription medicine for pain, take it as prescribed. ? If you are not taking a prescription pain medicine, take an leyv-cna-tbgrrty anti-inflammatory medicine for pain and swelling, such as ibuprofen (Advil, Motrin) or naproxen (Aleve). Read and followall instructions on the label. Use ice massage to help with pain and swelling. You can use an ice cube or an ice cup several timesa day. To make an ice cup, fill a paper cup with water and freeze it. Cut off the top of the cup until a half-inch of ice shows. Hold onto the remaining paper to use the cup. Rub the ice in small circles over the area for 5 to 7 minutes. Contrast baths, which alternate hot and cold water, can also help reduce swelling. But because heatalone may make pain and swelling worse, end a contrast bath with a soak in cold water. Wear a night splint if your doctor suggests it. A night splint holds your foot with the toes pointed up and the foot and ankle at a 90-degree angle. This position gives the bottom of your foot a constant, gentle stretch. Do simple exercises such as calf stretches and towel stretches 2 to 3 times each day, especially when you first get up in the morning. These can help the plantar fascia become more flexible. They also make the muscles that support your arch stronger. Hold these stretches for 15 to 30 seconds per stretch. Repeat 2 to 4 times. ? Stand about 1 foot from [address] the palms of both hands against the wall at chest level. Lean forward against the wall, keeping one leg with the knee straight and heel on the ground while bending the knee of the other leg. ? Sit down on the floor or a mat with your feet stretched in front of you. Roll up a towel lengthwise, and loop it over the ball of your foot. Holding the towel at both ends, gently pull the towel toward you to stretch your foot. Wear shoes with good arch support. Athletic shoes or shoes with a well-cushioned sole are good choices. Replace athletic shoes regularly. Try heel cups or shoe inserts (orthotics) to help cushion your heel. You can buy these at many [employer]. Put on your shoes as soon as you get out of bed. Going barefoot or wearing slippers may make your pain worse. Reach and stay at a good weight for your height. This puts less strain on your feet. When should you call for help? Call your doctor now or seek immediate medical care if: You have heel pain with fever, redness, or warmth in your heel. You cannot put weight on the sore foot. Watch closely for changes in your health, and be sure to contact your doctor if: You have numbness or tingling in your heel. Your heel pain lasts more than 2 weeks. Where can you learn more? Log into your personal health record on https://[employer] and enter X351 in the Education box to learn more about Plantar Fasciitis: Care Instructions. Current as of: March 19, 2021 Content Version: 13.1 [employer]. Care instructions adapted under license by your healthcare professional. If you have questions about a medical condition or this instruction, always ask your healthcare professional. [employer] disclaims any warranty or liability for your use of this information. documented in this [id number] History of Present illness Narrative* Thomas Jose D Jelenasincere - 09/07/2021 5:59 PM EST Images from the original note were not included. Patient Name: [facility] Location: [place]. [place] [address] [facility] [address] Date Of : Date Of Visit: 1970 09/07/2021 MRN# Provider: [id number] Thomas Jeffery JelenaDO sincere Chief Complaint Patient presents with Foot Pain Flat footed and the arch in his right foot hurts. X1 week, Numbness in some toes. When he moves it,it feels like the tendons are stretching into his calf. Assessment & Plan Diagnoses and all orders for this visit: Plantar fasciitis of right foot - Ambulatory referral to Podiatry; Future - predniSONE (DELTASONE) 10 MG tablet; Take 4 tabs PO QD x 3d, then 3 tabs PO QD x 2d, then 2 tabs PO QD x 2, then 1 tab PO QD x 2d then stop . Pes planus, unspecified laterality - Ambulatory referral to Podiatry; Future Peroneal tendonitis, right - Ambulatory referral to Podiatry; Future - predniSONE (DELTASONE) 10 MG tablet; Take 4 tabs PO QD x 3d, then 3 tabs PO QD x 2d, then 2 tabs PO QD x 2, then 1 tab PO QD x 2d then stop . Return for Follow up with Specialist, Follow up with your PCP. Medical Decision Making [place]cessor. Seg[place]ia is a 51 y.o. male presents with complaint(s) of R foot pain radiating into lateral ankle/calf x 1 week. Hx flat feet. Pain likely form plantar fasciitis and peroneal tendonitis. Rx for Prednisone taper given today. Recommend Podiatry follow up for arch supports. Home care and followup instructions were reviewed with pt. Pt was given the opportunity ask questions. All questions were answered. Patient gave verbal understanding and agreement with this plan. Additional Clinical Comments Discussed over the counter medications for symptomatic management and side effects of medications. Recommended taking all medications with food and to stop medications if they develop any signs of anallergic reaction. Educated patient and/or guardian about signs and symptoms that would warrant further immediate evaluation. Recommended that they should return to urgent care, make an appointment with their family physician, or go to the emergency room if symptoms persist or get acutely worse. Recommended follow upwithin the next week with their PCP or to get established with a PCP soon in order to follow up appropriately. Subjective Ellcessor. Sloan is a 51 y.o. male presents with Foot Pain (Flat footed and the arch in his right foot hurts. X1 week, Numbness in some toes. When he moves it, it feels like the tendons are stretchinginto his calf.) Foot Injury The incident occurred 5 to 7 days ago (chronic hx of flat feet per pt for which he was pursuing inserts about 5-7 yrs ago but did not follow through. 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 ). There was no injury mechanism. The pain is present in the right foot. The quality of the pain is described as shooting. The pain is moderate. The pain has been constant since onset. Associated symptoms include numbness (4th/5th toes). Pertinent negatives include no inability to bear weight, loss of motion or loss of sensation. He reports no foreign bodies present. The symptoms are aggravated by weight bearing and palpation. He has tried NSAIDs (ibuprofen 600 mg BID) for the symptoms. The treatment provided mild relief. Review Of Systems Review of Systems Musculoskeletal: Positive for arthralgias and joint swelling. Skin: Negative for color change and wound. Neurological: Positive for numbness (4th/5th toes). All other systems reviewed and are negative. Medical History History reviewed. No pertinent past medical history. There is no problem list on file for this patient. History reviewed. No pertinent surgical history. ALLERGIES/INTOLERANCES Allergies: Patient has no known allergies. Social History Social History Socioeconomic History Marital status: Single Tobacco Use Smoking status: Current Every Day Smoker Types: Cigarettes Smokeless tobacco: Never Used Substance and Sexual Activity Alcohol use: Not Currently Drug use: Not Currently Family History Family History Problem Relation Age of Onset No Known Problems Mother MEDICATIONS PRIOR TO VISIT Current Outpatient Medications on File Prior to Visit Medication Sig Dispense Refill DULoxetine (CYMBALTA) 60 MG capsule valACYclovir (VALTREX) 500 MG tablet No current facility-administered medications on file prior to visit. Objective Physical Exam BP 129/82 Pulse 83 Temp 98.5 F (36.9 C) (Tympanic) Resp 16 Wt 108 kg (238 lb) SpO2 94% Vitals: 09/07/21 1755 BP: 129/82 Pulse: 83 Resp: 16 Temp: 98.5 F (36.9 C) TempSrc: Tympanic SpO2: 94% Weight: 108 kg (238 lb) Vision/Hearing Exam:No exam data present Physical Exam Vitals and nursing note reviewed. Constitutional: Appearance: He is well-developed and well-nourished. HENT: Head: Normocephalic and atraumatic. Eyes: Conjunctiva/sclera: Conjunctivae normal. Cardiovascular: Pulses: Intact distal pulses. Pulmonary: Effort: Pulmonary effort is normal. Musculoskeletal: General: Swelling and tenderness present. No signs of injury or edema. Right ankle: No swelling or ecchymosis. Normal range of motion. Right Achilles Tendon: No tenderness or defects. Right foot: Normal range of motion. Deformity (flat foot) and tenderness present. No bony tenderness. Normal pulse. Feet: Skin: General: Skin is warm and dry. Neurological: Mental Status: He is alert and oriented to person, place, and time. Psychiatric: Mood and Affect: Mood and affect normal. Behavior: Behavior normal. Orders Placed This Visit Orders Placed This Encounter Procedures Ambulatory referral to Podiatry Lab Results No results found for this or any previous visit (from the past 168 hour(s)). Xray Results: No orders to display Procedure Notes Procedures Patient Instructions It has been recommended that you see a specialist, Podiatry , for your complaints today Call to schedule an appointment with the specialist as recommended today See contact information for the specialist office in your discharge instructions Follow up with your PCP in 7 days or sooner if not improving. If you do not have a PCP please call or [phone] to locate a local PCP acceptingnew patients or you can contact your health insurance benefit provider to locate one covered under your plan. You may also go to [facility]'s website at [employer] and use the Find-A-Doc feature to locate and possibly even schedule an appointment to establish care with a PCP You may try [facility] if your work hours conflict with seeing a PCP Address: [address] [place] [address] [place] [facility] [place] next to the [facility] [address] [place] [address] OR [facility] [place] [facility] [address] [place] [address] OR [facility] [place] [address] [place], [place] [id number] Go to Emergency Room immediately for worsening symptoms or development of new concerning symptoms. See handout given today on plantar fasciitis Elevate, and rest affected joint as instructed Apply ice to the affected joint 3-4 times daily for the next 3-4 days Cold packs (bagged frozen peas or corn) work well for pain and/or swelling. If you use ice, always place a towel between the ice and your skin (to avoid frostbite) or use an ice bag. Apply ice/cold pack for 10-20 minutes at a time, with at least 20 minutes between applications. A prescription for Prednisone or other oral steroids was given today. Please be aware that your glucose levels will be elevated while on this medication but should return to baseline after you stop the medication. Monitor your glucose level closely if you are diabetic. Steroids can offer side effects of anxiety, depression, nervousness, jitteryness, insomnia, stomachupset, stomach ulceration, worsening blood sugar or blood pressure, among others Avoid taking Ibuprofen or other similar medications such as Advil, Naprosyn, Aleve while taking prednisone. You may take Tylenol up to 1000 mg every 8 hrs for pain or fever if needed while on prednisone Please fill your prescriptions and take all medications as directed even if you begin to feel better before you run out of medicine. Risks, benefits, and side effects of medicine(s) discussed, go to ER for severe reaction. Recommend weight loss as part of your retirement treatment plan Plantar Fasciitis: Care Instructions Overview Plantar fasciitis is pain and inflammation of the plantar fascia, the tissue at the bottom of your foot that connects the heel bone to the toes. The plantar fascia also supports the arch. If you strain the plantar fascia, it can develop small tears and cause heel pain when you stand or walk. Plantar fasciitis can be caused by running or other sports. It also may occur in people who are overweight or who have high arches or flat feet. You may get plantar fasciitis if you walk or stand forlong periods, or have a tight Achilles tendon or calf muscles. You can improve your foot pain with rest and other care at home. It might take a few weeks to a fewmonths for your foot to heal completely. Follow-up care is a robb part of your treatment and safety. Be sure to make and go to all appointments, and call your doctor if you are having problems. It's also a good idea to know your test resultsand keep a list of the medicines you take. How can you care for yourself at home? Rest your feet often. Reduce your activity to a level that lets you avoid pain. If possible, do notrun or walk on hard surfaces. Take pain medicines exactly as directed. ? If the doctor gave you a prescription medicine for pain, take it as prescribed. ? If you are not taking a prescription pain medicine, take an voim-zph-fushafs anti-inflammatory medicine for pain and swelling, such as ibuprofen (Advil, Motrin) or naproxen (Aleve). Read and followall instructions on the label. Use ice massage to help with pain and swelling. You can use an ice cube or an ice cup several timesa day. To make an ice cup, fill a paper cup with water and freeze it. Cut off the top of the cup until a half-inch of ice shows. Hold onto the remaining paper to use the cup. Rub the ice in small circles over the area for 5 to 7 minutes. Contrast baths, which alternate hot and cold water, can also help reduce swelling. But because heatalone may make pain and swelling worse, end a contrast bath with a soak in cold water. Wear a night splint if your doctor suggests it. A night splint holds your foot with the toes pointed up and the foot and ankle at a 90-degree angle. This position gives the bottom of your foot a constant, gentle stretch. Do simple exercises such as calf stretches and towel stretches 2 to 3 times each day, especially when you first get up in the morning. These can help the plantar fascia become more flexible. They also make the muscles that support your arch stronger. Hold these stretches for 15 to 30 seconds per stretch. Repeat 2 to 4 times. ? Stand about 1 foot [address] the palms of both hands against the wall at chest level. Lean forward against the wall, keeping one leg with the knee straight and heel on the ground while bending the knee of the other leg. ? Sit down on the floor or a mat with your feet stretched in front of you. Roll up a towel lengthwise, and loop it over the ball of your foot. Holding the towel at both ends, gently pull the towel toward you to stretch your foot. Wear shoes with good arch support. Athletic shoes or shoes with a well-cushioned sole are good choices. Replace athletic shoes regularly. Try heel cups or shoe inserts (orthotics) to help cushion your heel. You can buy these at many [employer]. Put on your shoes as soon as you get out of bed. Going barefoot or wearing slippers may make your pain worse. Reach and stay at a good weight for your height. This puts less strain on your feet. When should you call for help? Call your doctor now or seek immediate medical care if: You have heel pain with fever, redness, or warmth in your heel. You cannot put weight on the sore foot. Watch closely for changes in your health, and be sure to contact your doctor if: You have numbness or tingling in your heel. Your heel pain lasts more than 2 weeks. Where can you learn more? Log into your personal health record on https://[email or web address] and enter X351 in the Education box to learn more about Plantar Fasciitis: Care Instructions. Current as of: March 19, 2021 Content Version: 13. [employer]. Care instructions adapted under license by your healthcare professional. If you have questions about a medical condition or this instruction, always ask your healthcare professional. [employer] disclaims any warranty or liability for your use of this information. An After Visit Summary was printed and given to the patient. Medication List At End Of Visit (This list Includes previously prescribed medications per other providers as well as those prescribed today): Current Outpatient Medications Medication Sig Dispense Refill DULoxetine (CYMBALTA) 60 MG capsule valACYclovir (VALTREX) 500 MG tablet predniSONE (DELTASONE) 10 MG tablet Take 4 tabs PO QD x 3d, then 3 tabs PO QD x 2d, then 2 tabs PO QD x 2, then 1 tab PO QD x 2d then stop . 24 tablet 0 No current facility-administered medications for this visit. documented [facility] this [facility] No Information to Report [facility] Discharge summary No Information to Report [facility] Discharge summary Author Tammy Cespedes [facility] Note Date/Time February 18, 2025 12:44 pm [facility] Medical Records Department [address] [place] [address] Instructions for Home/Discharge Instructions 02/18/25 1059 MR#: [id number] Acct: [id number] Name: SLOAN HARVEY Rep #:[id number] : 1970 55 From: Tammy Cespedes MD PCP: Dr. Peggy Nicole DO Status:ADM IN Discharge Instructions Diet Discharge Diet: Low fat / Low cholesterol DC O2, CPAP, BIPAP needs Home O2 Discharge instructions: No Dressing / Incision Discharge Activity: Return to Normal Activity Weight Bearing Status: Weight bearing as tolerated Dressing / Incision Call your doctor if you observe: Fever of 101 or Higher, Shortness of breath, Dizziness, Chest pain and Increased palpitations (irregular heartbeat) Follow Up Care Test Results: Test results from this visit will be discussed in further detail at your follow- up appointment, if applicable. Discharge Plan Admission Admit Date/Time: 02/15/25 17:40 Primary Reason for Your Visit: acute alcohol withdrawal Attending Provider: Tammy Cespedes Primary Care Provider: Peggy Nicole Consulting Providers: Samantha Leung; Vu Jean Instructions Patient Instructions: Alcohol Withdrawal: What to Expect, ED Withdrawal Alcohol Discharge Orders/Prescriptions Prescriptions: Continued amlodipine 5 mg tablet 5 mg PO DAILY ibuprofen 600 mg tablet 600 mg PO TID PRN (Reason: pain) Patient Comments: PT ONLY TAKES 1-2 TIMES A DAY hydroxyzine pamoate 25 mg capsule 50 mg PO TID PRN (Reason: anxiety) duloxetine 60 mg capsule,delayed release(DR/EC) 60 mg PO DAILY buspirone 10 mg tablet 10 mg PO TID duloxetine 30 mg capsule,delayed release(DR/EC) 30 mg PO QHS Referrals / Follow Up: Peggy Nicole DO [Primary Care Provider] - Within 1 Week Care Physician,No Primary [Non-Staff] - Disposition Disposition (needs filled in before D/C Order can be placed): Home, Self Care 02/18/25 1244<Electronically signed by Tammy Cespedes MD>Tammy Cespedes MD CC: Dr. Samantha Leung MD; Dr. Peggy Nicole DO; Dr. Vu Jean MD ~ Signed [facility] Work Phone: Evaluation note* Diagnosis Plantar fasciitis of right foot- Primary Pes planus, unspecified laterality Peroneal tendonitis, right documented in this encounter [facility] note* Diagnosis Gastrocnemius equinus, unspecified laterality- Primary Plantar fasciitis of right foot Pes planus, unspecified laterality Peroneal tendonitis, right documented in this encounter [facility] note* Diagnosis Closed fracture of base of fifth metatarsal bone of left foot, initial encounter- Primary documented in this encounter [facility] note* Diagnosis Uncomplicated alcohol dependence (HCC)- Primary HSV-1 infection Herpes simplex without mention of complication Chronic bilateral low back pain without sciatica Anxiety with depression documented in this encounter [facility] note No Information to Report [facility] [employer] Evaluation note* Diagnosis Impacted cerumen of left ear- Primary Impacted cerumen Ear drainage, unspecified laterality documented in this encounter [facility] note* Diagnosis H/O spinal fusion- Primary Arthrodesis status DDD (degenerative disc disease), lumbar Degeneration of lumbar or lumbosacral intervertebral disc PTSD (post-traumatic stress disorder) Posttraumatic stress disorder History of alcoholism (HCC) Personal history of alcoholism WHITNEY (generalized anxiety disorder) Generalized anxiety disorder Screening for colon cancer Special screening for malignant neoplasms, colon Preventative health care Routine general medical examination at a health care facility documented in this encounter [facility] note* Diagnosis Hypertension, essential- Primary Unspecified essential hypertension Plantar fasciitis, bilateral Plantar fascial fibromatosis Cigarette nicotine dependence with other nicotine-induced disorder documented in this encounter [facility] note* Diagnosis Cigarette nicotine dependence with other nicotine-induced disorder- Primary WHITNEY (generalized anxiety disorder) Generalized anxiety disorder Hypertension, essential Unspecified essential hypertension documented in this encounter [facility] note* Diagnosis WHITNEY (generalized anxiety disorder) Generalized anxiety disorder documented in this encounter [facility] note* Diagnosis Uncomplicated alcohol dependence (HCC) [F10.20]- Primary Other and unspecified alcohol dependence, unspecified drinking behavior documented in this encounter [facility] note* Diagnosis WHITNEY (generalized anxiety disorder) Generalized anxiety disorder documented in this encounter [facility] note* Diagnosis Onset Date Resolution Status Alcohol intoxication acute Alcohol withdrawal acute Polysubstance abuse acute [facility] Work Phone: Evaluation note* Diagnosis Impacted cerumen of left ear- Primary Impacted cerumen documented in this encounter [facility] note* Diagnosis DDD (degenerative disc disease), lumbar- Primary Degeneration of lumbar or lumbosacral intervertebral disc Screening for colon cancer Special screening for malignant neoplasms, colon Hypertension, essential Unspecified essential hypertension Alcohol abuse Alcohol abuse, unspecified WHITNEY (generalized anxiety disorder) Generalized anxiety disorder documented in this encounter [facility] note* Diagnosis Encounter for completion of form with patient- Primary WHITNEY (generalized anxiety disorder) Generalized anxiety disorder documented in this encounter [facility] note* Diagnosis Pain, dental- Primary Unspecified disorder of the teeth and supporting structures documented in this encounter [facility] note* Diagnosis Onset Date Resolution Status Admit Date Polysubstance abuse acute January 192024 5:40pm [facility] Work Phone: History and physical note No Information to Report [facility] [employer] [employer] History and physical note Author Sloan Villalobos [facility] December 17, 2023 4:18pm Note Date/Time December 17, 2023 4:1 4pm [facility] Medical Records Department [address] [place] [id number] H&P Exam - Hospitalist 12/17/23 1611 MR#: [id number] Acct: [id number] Name: SLOAN HARVEY Rep #:[id number] : 1970 53 From: Sloan Villalobos DO PCP: Care Physician,No Primary Status :ADM IN Location: 3 [id number] HPI - General General Date of Service: 12/17/23 Chief Complaint: Alcohol withdrawal HPI Narrative SLOAN HARVEY, is a 53 M who presents seeking treatment for alcohol withdrawal. Patient had been sober for period time but in the middle of September, started drinking again. Was drinking about 1/5 of liquor a day. Over the past week, hehas been attempting to taper that down. Has been working with [employer] and has a bedavailable at the [facility] but they want him to go through this withdrawal program here at [facility] before enrolling intothe residential program. Patient's last drink was this morning where he had a few drinks. Currently he has no withdrawal symptoms. [facility] Medical History Anxiety Depression Hypertension Home Medications amlodipine 5 mg tablet 5 mg PO DAILY 12/17/23 [History Last Taken 12/17/23] buspirone 10 mg tablet 10 mg PO TID 12/17/23 [History Last Taken 12/17/23] duloxetine 60 mg capsule,delayed release 60 mg PO DAILY 12/17/23 [History Last Taken 12/17/23] hydroxyzine pamoate 25 mg capsule 50 mg PO TID PRN anxiety 12/17/23 [History Last Taken 12/17/23] ibuprofen 600 mg tablet 600 mg PO TID PRN pain 12/17/23 [History Last Taken 12/17/23] Allergy/AdvReac Type Severity Reaction Status Date / Time No Known Allergies Allergy Verified 12/17/23 13:28 Family History (Updated 12/17/23 @ 16:[address] Sloan Villalobos DO) Other Alcoholism Social History (Updated 12/17/23 @ 16:[address] Sloan Villalobos DO) Smokeless tobacco user: other substance use type: marijuana and amphetamines ROS ROS Narrative All review of systems were negative except as mentioned above in the history of present illness and the other review of systems. Vital Signs Vital Signs Vital Signs: 12/17/23 13:26 12/17/23 14:26 12/17/23 14:45 Temperature 36.4 C L Temperature Source Temporal Pulse Rate 83 75 75 Respiratory Rate 18 18 18 Blood Pressure 151/94 H 129/82 H 107/66 Blood Pressure Mean 113 97 78 Pulse Ox 95 93 91 Oxygen Delivery Method Room Air Room Air 12/17/23 15:45 12/17/23 16:00 Temperature 36.8 C 36.8 C Temperature Source Oral Pulse Rate 73 73 Respiratory Rate 18 18 Blood Pressure 129/82 H 129/82 H Blood Pressure Mean 97 97 Pulse Ox 95 95 Oxygen Delivery Method Room Air Weight Weight: 110.45 kg Body Mass Index (BMI) 34.0 Physical Exam Narrative - Physical Exam General: Alert, Oriented x3, Cooperative HEENT: Atraumatic, PERRLA, EOMI, Normocephalic Oral: Moist Mucosa, No Gingival or Mucosal Lesions/ Ulcerations Neck: Supple, No JVD, Negative Carotid Bruits Lungs: Clear to auscultation, Normal air movement Cardiovascular: Regular rate, Normal S1, Normal S2, No murmurs Abdomen: Bowel Sounds Present, Soft, Non Tender, Non-Distended, No Hepato-splenomegaly Extremities: No clubbing, No cyanosis, No edema, Capillary Refill Less than 3 Seconds Skin: No rashes, No breakdown Musculoskeletal: No Tenderness to Palpation of Joints or Extremities Neurological: Neuro grossly intact Psych/Mental Status: Normal Affect, Appropriate Results Lab / Micro Data 12/17/23 14:20 12/17/23 14:20 Labs: Laboratory Results - last 24 hr 12/17/23 14:20: WBC 6.5, RBC 4.90, Hgb 14.9, Hct 44.5, MCV 90.8, MCH 30.4, MCHC 33.5, RDW Std Deviation 49.9 H, RDW Coeff of Jacy 15.1 H, Plt Count 241, MPV 9.0,Immature Gran % (Auto) 0.300, Neut % (Auto) 61.8, Lymph % (Auto) 25.3, [place] % (Auto) 9.2, Eos % (Auto) 2.5, Baso % (Auto) 0.9, Absolute Neuts (auto) 4.0, Absolute Lymphs (auto) 1.65, Nucleated RBC % 0, Sodium 140, Potassium 4.1, Chloride 108 H, Carbon Dioxide 25.0, Anion Gap 7, BUN 13, Creatinine 0.94, EstimCreat Clear Calc 113.55, Est GFR (MDRD) Af Amer 107, Est GFR (MDRD) Non-Af 89, BUN/Creatinine Ratio 13.8, Glucose 80, Calcium 8.7, Total Bilirubin 0.50, AST 60H, ALT 89 H, Alkaline Phosphatase 121 H, Total Protein 7.5, Albumin 3.4, Globulin 4.1, Albumin/Globulin Ratio 0.8 L, Ethyl Alcohol 148.0 12/17/23 14:25: Urine Opiates Screen NEGATIVE, Urine Methadone Screen NEGATIVE, Ur Barbiturates Screen NEGATIVE, Ur Phencyclidine Scrn NEGATIVE, Ur AmphetaminesScreen NEGATIVE, MDMA (Ecstasy) Screen NEGATIVE, U Benzodiazepines Scrn NEGATIVE, Urine Cocaine Screen NEGATIVE, U Cannabinoids Screen POSITIVE H, Ur Drug Screen Comment Assessment & Plan Assessment/Plan (1) Alcohol withdrawal: PLAN: Plan Anticipated alcohol withdrawal * Patient not actively going through alcohol withdrawal at present but do anticipate him to start going through alcohol withdrawal within the day. Severity which will be determined but patient will be on the CIWA protocol. Have phenobarbital taper available as well as other adjunctive medications to help with his withdrawal symptoms. * Thiamine and folate * Patient has been working with [employer] and the plan is for him to go to the pathway residential program once he has completed his treatment in the hospital. Addiction medicine to assist with this disposition. Chronic conditions * Hypertension: Continue with amlodipine * Depression: Continue with buspirone, duloxetine. * Nicotine abuse: Patient uses oral nicotine. Will have nicotine gum available. VTE prophylaxis: Not indicated given observation status. Charges/Coding Visit Charges Inpatient E&M: 29001 Init Hosp L2 12/17/23 1618 <Electronically signed by Sloan Villalobos DO> Cosigner Signature (if applicable): CC: Dr. Sloan Villalobos DO; No Primary Care Physician~ Signed [facility] Work Phone: History and physical note Author Samantha Leung [facility] Note Date/Time February 15, 2025 5:49p m [facility] Medical Records Department [address] [place] [address] H&P Exam - Hospitalist 02/15/25 1742 MR#: [id number] Acct: [id number] Name: SLOAN HARVEY Rep #:[id number] : 1970 55 From: Samantha Leung MD PCP: Dr. Peggy Nicole DO Status:REG ER Location: ED HPI - General General Date of Admission: 02/15/25 Date of Service: 02/15/25 Chief Complaint: Alcohol detoxification HPI Narrative SLOAN HARVEY, is a 55 M with past medical history of anxiety, depression, alcohol use disorder, nicotine abuse who presents to the ED with desire for alcohol detoxification He is a heavy alcohol user and his last drink was about 1 hour before presentation, drinks about 1/5 of locating a liquor every day and smokes half pack cigarettes daily, no other drug use. Previously admitted to [facility] for detoxification about 14 months back, and maintain sobriety for 10 months, but has been drinking steadilyfor the last 4 months No symptoms other than that Has been compliant with his medications for hypertension and depression Has good social support At the time of presentation in the ED BP 118/78, pulse 78, temp 98.4, oxygen saturation 96 WBC 6.9, hemoglobin 14.8, platelet count 216, sodium 135, potassium 3.3, chloride 96, BUN 17, creatinine 1.1, AST 153, ALT 115 alk phos 112, troponin T 15, bilirubin 1.02, Ethyl alcohol 97.6 PFSH Medical History Anxiety Depression Hypertension Home Medications ?Medication ?Instructions ?Recorded ?Last Taken ?Type amlodipine 5 mg tablet 5 mg PO DAILY 12/17/2302/15 History buspirone 10 mg tablet 10 mg PO TID 12/17/23 History duloxetine 60 mg capsule,delayed 60 mg PO DAILY 02/15/25 History release hydroxyzine pamoate 25 mg capsule 50 mg PO TID PRN anx iety 12/17/23 02/15/25 History ibuprofen 600 mg tablet 600 mg PO TID PRN pain 12/1602/15/25 History duloxetine 30 mg capsule,delayed 30 mg PO QHS 02/15/25 Unknown History release Allergy/AdvReac Type Severity Reaction Status Date / Time No Known Allergies Allergy Verified 02/15/25 15:33 Family History (Updated 12/17/23 @ 16:[address] Sloan Villalobos DO) Other Alcoholism Social History (Updated 12/17/23 @ 16:[address] Sloan Villalobos, DO) Smoking Status: Current every day smoker tobacco type: cigarettes Smokeless tobacco user: other substance use type: marijuana and amphetamines ROS Review of Systems ROS Unobtainable: Denies due to encephalopathy, due to endotracheal tube, due tomental condition, due to mental status or other Constitutional Constitutional: Denies anorexia, change in weight, chills, fatigue, fever(s), malaise, night sweats, weakness or other Eyes Eyes: Denies blurry vision, change in eye color, change in vision, discharge from eye(s), double vision, erythema, eye pain, loss of vision or other ENT HEENT: Denies abnormal hearing, dysphagia, ear pain, epistaxis, headache(s), hearing loss, nasal congestion, nasal discharge, post nasal drip, sinus pressure, sore throat or other Cardiovascular Cardiovascular: Denies chest pain, claudication, dyspnea on exertion, edema, lightheadedness, orthopnea, palpitations, paroxysmal nocturnal dyspnea, rapid heart rate, syncope or other Respiratory/Chest Respiratory/Chest: Denies cough, dyspnea, excessive phlegm production, hemoptysis, productive cough, shortness of breath at rest, shortness of breath with exertion, wheezing or other Gastrointestinal Gastrointestinal: Denies abdominal pain, coffee ground emesis, constipation, diarrhea, dyspepsia, hematemesis, hematochezia, loose stools, melena, nausea, vomiting or other Genitourinary Genitourinary: Denies burning urination, difficulty urinating, dysuria, hematuria, nocturia, urinary frequency, urinary hesitancy, urinary incontinence,urinary urgency or other Musculoskeletal Musculoskeletal: Denies arthralgias, back pain, joint pain, joint stiffness, joint swelling, myalgias, neck pain or other Neurologic Neurologic: Denies abnormal gait, abnormal speech, confusion, disequilibrium, dizziness, focal weakness, headache(s), numbness, paresthesias, seizure-like activity, seizures, syncope, tingling, tremor(s) or other Psychiatric Psychiatric: Denies anxiety, depression, homicidal ideation, suicidal ideation or other Endocrine Endocrinology: Denies change in body appearance, cold intolerance, excessive sweating, heat intolerance, polydipsia, polyuria or other Hematologic/Lymphatic Hematologic/Lymphatic: Denies anemia, easy bleeding, easy bruising, lymphadenopathy or other Vital Signs Vital Signs Vital Signs: 02/15/25 15:33 02/15/25 16:33 02/15/25 17:00 Temperature 97.8 F Temperature Source Temporal Pulse Rate 98 94 78 Respiratory Rate 18 22 H 15 Blood Pressure 136/99 H 117/73 118/78 Blood Pressure Mean 111 87 91 Pulse Ox 100 98 96 Oxygen Delivery Method Room Air Room Air Room Air 02/15/25 17:34 Temperature 98.4 F Temperature Source Pulse Rate 78 Respiratory Rate 16 Blood Pressure 118/78 Blood Pressure Mean 91 Pulse Ox 96 Oxygen Delivery Method Weight Weight: 248 lb 12.8 oz Body Mass Index (BMI) 35.6 Physical Exam Const alert, oriented x3 and no apparent distress HEENT normocephalic and head/scalp atraumatic Eyes PERRL and EOMs intact bilaterally Neck no lymphadenopathy and supple Resp normal respiratory effort and no retractions Cardio regular rate and regular rhythm GI normal to inspection, nondistended, normoactive bowel sounds Extremity normal to inspection and full ROM Neuro oriented x3 and CN's II-XII intact bilaterally Psych affect normal Results Lab / Micro Data 02/15/25 15:55 02/15/25 15:55 Labs: Laboratory Results - last 24 hr 02/15/25 15:55: WBC 6.9, RBC 4.82, Hgb 14.8, Hct 42.9, MCV 89.0, MCH 30.7, MCHC 34.5, RDW Std Deviation 40.0, RDW Coeff of Jacy 12.1, Plt Count 216, MPV 9.1, Immature Gran % (Auto) 0.300, Neut % (Auto) 66.2, Lymph % (Auto) 23.7, [place] % (Auto) 6.9, Eos % (Auto) 1.9, Baso % (Auto) 1.0, Absolute Neuts (auto) 4.6, Absolute Lymphs (auto) 1.64, Nucleated RBC % 0, Sodium 135, Potassium 3.3, Chloride 96 L, Carbon Dioxide 20.7 L, Anion Gap 18 H, BUN 17, Creatinine 1.19, Estim Creat Clear Calc 87.20, Est GFR (MDRD) Non-Af 72, BUN/Creatinine Ratio 14.6, Glucose 142 H, Calcium 9.3, Total Bilirubin 1.02, AST 153 H, ALT 115 H, Alkaline Phosphatase 112, Troponin T High Sens 15, Total Protein 7.8, Albumin 4.5, Globulin 3.2, Albumin/Globulin Ratio 1.4, Ethyl Alcohol 97.6 H Assessment & Plan Assessment/Plan (1) Polysubstance abuse: PLAN: Plan 55-year-old male with history of polysubstance abuse, anxiety, presents to the hospital for desire for inpatient detoxification #Alcohol use disorder - Monitoring based on CIMO protocol - Symptom management using gabapentin, dicyclomine, hydroxyzine, Zofran - Thiamine supplementation - Lorazepam taper #Nicotine dependence - Nicotine patches ordered #Acute alcoholic hepatitis - AST ALT both are elevated - Monitor PT/INR # Depression - Continue home medications # HTN - Continue amlodipine # DVT - Low risk - Encourage mobilization # CODE -Full code 02/15/25 3445 <Electronically signed by Samantha Leung MD> Cosigner Signature (if applicable): CC: Dr. Samantha Leung MD; Dr. 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 Expl anation Advance Directives and Living Will Power of International Relations Professor Documents on File Type Date Recorded 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 Clerk Expl anation Advance Directives and Living Will Power of International Relations Professor Documents on File Type Date Recorded 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 Clerk Expl anation Advance Directives and Living Will Advance Directives and Living Will 08/29/2019 10:59 AM 08/29/19 - No Ad Power of International Relations Professor Latest Code Status on File Code Status Date Activated Date Inactivated Comments Full Code 08/29/2019 10:03 AM Documents on File Type Date Recorded 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 Expl anation Advance Directives and Living Will Advance Directives and Living Will 08/29/2019 10:59 AM 08/29/19 - No Ad Power of International Relations Professor Latest Code Status on File Code Status Date Activated Date Inactivated Comments Full Code 08/29/2019 10:03 AM 08/30/2019 12:57 AM Documents on File Type Date Recorded 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 Clerk Expl anation Advance Directives and Living Will Power of International Relations Professor Advance Directives and Living Will 08/29/2019 10:59 AM 08/29/19 - No Ad Documents on File Type Date Recorded 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 Clerk Expl anation Advance Directives and Living Will Documents on File Type Date Recorded 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 Clerk Expl anation Advance Directives and Living Will Documents on File Type Date Recorded 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 Clerk Expl anation Advance Directives and Livin g Will 10/09/2021 3:45 PM Advance Directive Response Recorded Date/ Time Living Will No December 17, 2023 2:21pm Power of International Relations Professor No December 16 2:21pm Advance Directive Response Recorded Date/ Time Living Will No December 17, 2023 5:02pm Power of International Relations Professor No December 16 5:02pm Advance Directive Response Recorded Date/ Time Do you have a Healthcare Power of International Relations Professor? No February 15, 2025 4:06pm Advance Directive Response Recorded Date/ Time Do you have a Healthcare Power of International Relations Professor? No February 15, 2025 6:28pm Discharge Instructions * Attachments The following attachments cannot be sent through Care Everywhere. * Mood Disorders: General Info (Togolese Scottish) documented in this encounter* Instructions* Negrita Zamora, PT, DPT - 08/20/2019 After Hours Care Information Please dial 911 or report to the closest emergency department for emergencies outside of the department s normal business hours. For non-emergency questions or concerns, the patient may call the office on the next business day at [phone] or call the [facility] NurseLine at [phone] or . When to stay home: We appreciate your best efforts to attend scheduled appointments. However, there are times we request you stay home. Here are some guidelines to help you decide whether you should stay home: Elevated temperature, 100 degrees or higher Vomiting or diarrhea (any episode in the last 24 hours) Lice, bed bugs, scabies Skin infections including impetigo, ringworm, unexplained rashes, or shingles [place] eye or any other illness that may be given to other therapy participants or therapists Severe respiratory infections, sore throat, severe colds or flu Blood pressure above 160/100 While under the influence of alcohol, non-prescribed/recreational drug(s), or illegal substance(s) If you have any questions regarding whether you should attend therapy, please call your therapist at [phone]. The Rehab staff reserves the right to cancel therapy for you due to illness. CANCELLATION/NO SHOW POLICY Administrative Discharge: Effective March 19, 2017, Cancellation/No Show policy (Administrative Discharge) will be implemented. This policy has been adopted so that treatments prescribed by your physician can be carried out in the most effective and efficient manner possible. Missed appointments, whether by cancellation or no show, result in decreased benefit of services rendered and tie up appointment times that other patients could use. We encourage you to discuss with your therapist or with the administrative professionals your schedule needs. We will be happy to work with you regarding any scheduling issues. The policy below explains situations where a patient may be administratively discharged: Administrative Discharge will occur in the following situations: 1. Upon a patient s 2nd no show during the course of treatment, all remaining appointments will be removed. The patient then has two weeks from that date to call and speak with their supervising therapist about continuing treatment. If the patient fails to call, they will be discharged. 2. If a patient cancels 3 appointments (or a combination of no show/cancellations) at any time during the treatment process, a review of all remaining appointments will occur by the supervising therapist. This review will lead to scheduling changes or discharge of the patients. Your physician will also receive notification of an administrative discharge if it occurs. If you need assistance in reading or understanding this policy, please let us know and we will be glad to help. I have read and/or have been fully informed of the Administrative Discharge policy and understand that repeated no-shows or cancellations may result in such discharge. [facility]YMENT POLIC[facility] I UNDERSTAND I AM RESPONSIBLE FOR KNOWING THE TERMS OF MY INSURANCE POLICY. IF I CHOOSE TO HAVE A SERVICE DONE THAT IS NOT COVERED BY MY INSURANCE OR IF I FAIL TO OBTAIN A PRE-CERTIFICATION OR REFERRAL BY MY INSURANCE COMPANY I WILL BE HELD RESPONSIBLE FOR THE PAYMENT. I HAVE READ ALL THE ABOVE STATEMENTS AND I AGREE TO THE TERMS OF THIS AGREEMENT. If financial assistance is needed, please call Resource Counseling at [phone] or [phone]. documented in this encounter* Instructions* Regina Bearden RN - 08/29/2019 [facility] Electrophysiology EP STUDY +/- ABLATION DISCHARGE INSTRUCTIONS ACTIVITY ? Rest and relax for a few days after the procedure. ? Do not drive for 2 days following procedure-unless otherwise instructed by staff. ? Do not complete any strenuous activity 5 days after your procedure. ? You may return to work as instructed by Electrophysiology staff. ? Avoid any repetitive or jerking movements that place strain on your groin. ? Resume sexual activity as tolerated. OTHER PRECAUTIONS ? Take your medications exactly as ordered. Don t skip any doses. IF YOU HAVE A PACEMAKER or DEFIBRILLATER: o Carry your device identification card with you at all times. o Keep your cell phone away from your pacemaker. Don t carry your phone in your shirt pocket. o Grounded electrical equipment, such as microwaves and computers won t interfere with your pacemaker. o Avoid strong magnets, such as those used in an MRI or hand held security wands. o Avoid strong electrical mccray such as those made by radio transmitting towers and heavy-duty electrical equipment. o Avoid leaning over the open cueto of a running car. A running engine creates an electrical field. CALL OUR OFFICE IF YOU DEVELOP: ? Increased pain, swelling or bleeding/discharge from the incision site. ? Numbness, tingling or swelling to affected leg FOLLOW-UP ? Keep your follow-up appointment, which will be given to you prior to discharge. If you are unableto make this appointment, please contact our office at to reschedule. ? If you do not have a regular appointment scheduled with your supervisor braiding, the hospital nurse will make an appointment for you prior to discharge. ? If you do not have a regular appointment scheduled with your primary care physician, the hospitalnurse will make an appointment for you prior to discharge. IF YOU HAVE A PACEMAKER or DEFIBRILLATOR: o You will need routine device clinic checks with your supervisor braiding approximately every 3-6 months.If you do not receive an appointment to have your device checked within 3 months after the device is implanted, please contact your supervisor braiding. o Replacement of the generator is performed once the device has reached elective replacement interval , which is determined by the device s battery life. On average, the battery will last approximately 8-10 years. Sedation for a Medical Procedure: Care Instructions Your Care Instructions For a minor procedure or surgery, you will get a sedative to help you relax. This drug will make you sleepy. It is usually given in a vein (by IV). It may be used with anesthesia. There are different types of anesthesia. You and your doctor or anesthesia specialist will work together to choose the best anesthesia for you. It is usually based on your health, the procedure, and your preference. Local anesthesia is a shot given to numb a small part of the body. Regional anesthesia is a shot that blocks pain to a larger area of the body. General anesthesia affects the brain and the whole body. You get it through a small tube placed in a vein (IV). Or you may breathe it in. You are unconscious and will not feel pain. You may get monitored anesthesia care (MAC). This means that an anesthesia specialist will care foryou during your surgery. He or she will make sure that you get only the level of anesthesia care you need to prevent pain for your specific case. If you had anesthesia, you may feel some pain and discomfort as it wears off. If you have pain, don't be afraid to say so. Pain medicine works better if you take it before the pain gets bad. Common side effects from sedation include: Feeling sleepy. (Your doctors and nurses will make sure you are not too sleepy to go home.) Nausea and vomiting. This usually does not last long. Feeling tired. Follow-up care is a robb part of your treatment and safety. Be sure to make and go to all appointments, and call your doctor if you are having problems. It's also a good idea to know your test resultsand keep a list of the medicines you take. How can you care for yourself at home? Activity Don't do anything for 24 hours that requires attention to detail. This includes going to work, making important decisions, or signing any legal documents. It takes time for the medicine effects to completely wear off. For your safety, you should not drive or operate any machinery that could be dangerous until the medicine wears off and you can think clearly and react easily. When you get home, it is important to rest until the anesthesia has worn off. Some people will feeldrowsy or dizzy for up to a few hours after leaving the hospital. Take your time and walk slowly. Sudden changes in position may also cause nausea. Rest when you feel tired. Getting enough sleep will help you recover. Diet You can eat your normal diet, unless your doctor gives you other instructions. If your stomach is upset, try clear liquids and bland, low-fat foods like plain toast or rice. Drink plenty of fluids (unless your doctor tells you not to). Don't drink alcohol for 24 hours. Medicines Be safe with medicines. Read and follow all instructions on the label. ? If the doctor gave you a prescription medicine for pain, take it as prescribed. ? If you are taking opioids for pain, it is very important to take them as prescribed. Opioids can easily be misused. Misuse can lead to opioid use disorder and even . Because of this, it is best to get off them as soon as possible. As soon as you don't need them, talk to your doctor about howto safely stop taking them. Also talk with your doctor about how to safely store and get rid of opioids. ? If you are not taking a prescription pain medicine, ask your doctor if you can take an dvtz-gie-eixywvr medicine. If you think your pain medicine is making you sick to your stomach, you can try these things. ? Take your medicine after meals (unless your doctor has told you not to). ? Ask your doctor for a different pain medicine. When should you call for help? Call 911 anytime you think you may need emergency care. For example, call if: You have severe trouble breathing. You passed out (lost consciousness). Call your doctor now or seek immediate medical care if: You have trouble breathing. You have ongoing or worsening nausea or vomiting. You have a fever. You have a new or worse headache. The medicine is not wearing off and you can't think clearly. Watch closely for changes in your health, and be sure to contact your doctor if: You do not get better as expected. Where can you learn more? Go to [email or web address].net/patientEd Enter G817 in the search box to learn more about Sedation for a Medical Procedure: Care Instructions. Current as of: August 31, 2018 Content Version: 12.3 6573-7595 [employer]. Care instructions adapted under license by your healthcare professional. If you have questions about a medical condition or this instruction, always ask your healthcare professional. [employer] disclaims any warranty or liability for your use of this information. documented in this encounter* Attachments The following attachments cannot be sent through Care Everywhere. * Mabry (Togolese Scottish) documented in this encounter* Attachments The following attachments cannot be sent through Care Everywhere. * Supraventricular Tachycardia (Togolese Scottish) documented in this encounter* Attachments The following attachments cannot be sent through Care Everywhere. * Depression: Treatment (Togolese Scottish) documented in this encounter Assessments Diagnosis Mood disorder (HCC)- Primary Unspecified episodic mood disorder Diagnosis SVT (supraventricular tachycardia) (HCC) Other specified cardiac dysrhythmias Diagnosis Pre-op testing Preoperative examination, unspecified SVT (supraventricular tachycardia) (HCC) Other specified cardiac dysrhythmias Diagnosis Chronic low back pain, unspecified back pain laterality, unspecified whether sciatica present Diagnosis Chronic low back pain, unspecified back pain laterality, unspecified whether sciatica present Diagnosis Chronic low back pain, unspecified back pain laterality, unspecified whether sciatica present Diagnosis Partial thickness burn of left wrist, initial encounter Diagnosis Bradycardia with 41-50 beats per minute Diagnosis Uncomplicated alcohol dependence (HCC)- sober since 06/2019 Other and unspecified alcohol dependence, unspecified drinking behavior Elevated liver enzymes Nonspecific elevation of levels of transaminase or lactic acid dehydrogenase (LDH) Diagnosis Supraventricular tachycardia (HCC)- Primary Other specified cardiac dysrhythmias Diagnosis SVT (supraventricular tachycardia) (HCC) Other specified cardiac dysrhythmias Screening for lipid disorders Diagnosis Depression, unspecified depression type- Primary History of alcohol abuse Nondependent alcohol abuse, in remission Lab test negative for COVID-19 virus Reason for Referral Status Reason Specialty Diagnoses / Procedures Referred By Contact Referred To Contact Closed [facility]cul [facility] Diagnostics Diagnoses SVT (supraventricular tachycardia) (HCC) Procedures Holter Monitor Complete - 24 Hour Karrie Willis PA [address] [place] [address] [facility] [address] [place] [address] Status Reason Specialty Diagnoses / Procedures Referred By Contact Referred To Contact [facility] Diagnoses SVT (supraventricular tachycardia) (HCC) Procedures Echocardiogram complete (M-Mode/2D) Karrie Willis PA [address] [place] [address] [facility] [address] [place] [address] Status Reason Specialty Diagnoses / Procedures Referred By Contact Referred To Contact [facility] Diagnoses Bradycardia with 41-50 beats per minute Procedures Cardiac Event Monitor - 30 Day Karrei Willis PA [address] [place] [address] [facility] [address] [place] [address] Specialty Diagnoses / Procedures Referred By Contac t Referred To Contact Orthopedic Surgery Diagnoses Plantar fasciitis of right foot Pes planus, unspecified laterality Peroneal tendonitis, right Linda, Thomas Jeffery, [address] [place] [address] Andre Duong, ASHLEY [address] [place] [address] [place] [address] Referral ID Status Reason Start Date Expiration Date V isits Requested Visits Authorized [id number] Authorized 09/07/2021 09/07/2022 1 1 Specialty Diagnoses / Procedures Referred By Contac t Referred To Contact Ent - Otolaryngology Diagnoses Ear drainage, unspecified laterality Procedures CONSULT TO ENT OFFICE/OUTPATIENT [facility] 60-74 MINUTES Dae Mari APRN.MAMMOGRAPHY TECHNICIAN [address] [place] [address] Referral ID Status Reason Start Date Expiration Date Visits Requested Visits Authorized [id number] Authorized PCP Requested Referral 02/16/2023 02/16/2024 1 1 Specialty Diagnoses / Procedures Referred By Contac t Referred To Contact [facility] Diagnoses H/O spinal fusion DDD (degenerative disc disease), lumbar Procedures CONSULT TO [facility] OFFICE/OUTPATIENT [facility] 60-74 MINUTES Peggy Nicole, [address] [place] [address] Referral ID Status Reason Start Date Expiration Date Visits Requested Visits Authorized [id number] Authorized PCP Requested Referral 04/19/2023 04/18/2024 1 1 Specialty Diagnoses / Procedures Referred By Contac t Referred To Contact Podiatry Diagnoses Plantar fasciitis, bilateral Procedures CONSULT TO PODIATRY OFFICE/OUTPATIENT [facility] 60-74 MINUTES Peggy Nicole, [address] [place] [address] Referral ID Status Reason Start Date Expiration Date Visits Requested Visits Authorized [id number] Authorized PCP Requested Referral 06/07/2023 06/06/2024 1 1 Specialty Diagnoses / Procedures Referred By Contac t Referred To Contact [facility] Diagnoses DDD (degenerative disc disease), lumbar Procedures CONSULT TO [facility] OFFICE/OUTPATIENT [facility] 60 MINUTES Peggy Nicole, [address] [place] [address] Referral ID Status Reason Start Date Expiration Date Visits Requested Visits Authorized [id number] Authorized PCP Requested Referral 04/04/2024 04/04/2025 1 1 Hospital Course * Ananda Zhang MD - 08/29/2019 1:34 PM EST DISCHARGE SUMMARY Clinical Cardiac Electrophysiology [facility] Sloan Harvey [id number] 1970 49 y.o. 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 Procedure: EP study with catheter ablation for typical AVNRT. Complications: None. Brief hospital course: Sloan Harvey is a pleasant 49 y.o. male with preserved EF (55-60%, echo 07/12/19), TIA, hyperlipidemia, anxiety, and depression. Mr. Harvey presented for ablation of paroxysmal SVT. The patient was admitted electively for the above procedure. The patient tolerated the procedure well without any significant issues. Typical AVNRT was diagnosed, with ablation of the AV emily slow pathway. Discharge Condition: Stable. Disposition: Discharge to home. Discharge Medications: Medication List This is the list of medications that you provided. Last dose given Next dose due aspirin EC 81 MG EC tablet Dose: 81 mg Refills: 0 Take 1 tablet by mouth daily. Commonly known as: ECOTRIN LOW STRENGTH DULOXETINE HCL PO Dose: 60 mg Refills: 0 Take 60 mg by mouth nightly. ibuprofen 600 MG tablet Dose: 600 mg Quantity: 90 tablet Refills: 0 Take 1 tablet by mouth every 8 hours as needed for Pain (Take with food.). Commonly known as: ADVIL,MOTRIN melatonin 3 MG Tabs Dose: 3 mg Refills: 0 Take 3 mg by mouth nightly as needed for Sleep. Vitamin B1 100 MG Tabs Dose: 100 mg Refills: 0 Take 100 mg by mouth daily. Physical Exam General: Well-developed, well-nourished, NAD. HEENT: NC/AT, sclerae anicteric, moist mucous membranes. Neck: Supple. No thyromegaly or lymphadenopathy were appreciated. Lungs: CTAB, without rales, rhonchi, or wheezes. CV: Regular rate & rhythm, no murmurs, rubs, or gallops. Normal S1/S2. Abd: Soft, NT, ND. Extremities: No pitting edema; no cyanosis or clubbing. Skin: Warm & dry, without jaundice or bruising. Psych: A&O x3, affect appropriate. Follow-up/Discharge recommendations: 1. Please do not perform strenuous activities for 5 days. 2. For questions or concerns related to the procedure, please contact the [facility] EP clinic at [phone]. Plan: 1. Discharge to home. 2. Follow-up with Electrophysiology as scheduled, in about 1 month. Thank you for allowing me to participate in the care of Mr. Harvey. Please call with questions. Ananda Zhang M.D., [facility] Clinical Cardiac Electrophysiology [facility] Office: [phone] 08/29/2019 1:34 PM documented in this encounter Chief Complaint and Reason for Visit Chief Complaint GI BLEED GI BLEED Reason for Visit Alcohol intoxication Alcohol withdrawal Polysubstance abuse Chief Complaint ALCOHOL DETOX GI BLEED ALCOHOL DETOX ALCOHOL DETOX Reason for Visit Alcohol intoxication Alcohol withdrawal Polysubstance abuse Chief Complaint Admit Date ALCOHOL DETOXIFICATION February 15, 2025 5: 40pm alcohol detox February 15, 2025 5:42p m Reason for Visit Admit Date Polysubstance abuse February 15, 2025 5:40p m Chief Complaint Admit Date ALCOHOL DETOXIFICATION February 15, 2025 5: 40pm alcohol detox February 15, 2025 5:42p m ALCOHOL DETOXIFICATION February 16, 2025 7: 49am ALCOHOL DETOXIFICATION February 17, 2025 4: 06pm Additional Source Comments (unrecognized sect ion and content) No Status Records FoundNo Status Records FoundNo Status Records FoundNo Status Records FoundNo Status Records FoundNo Status Records FoundNo Status Records FoundNo Status Records FoundNo Status Records FoundNo Status Records FoundNo Status Records Found INFORMATION SOURCE (unrecogn ized section and content) DATE CREATED AUTHOR 03/14/2018 [facility] DATE CREATED AUTHOR AUTHOR'S ORGANIZ ATION 03/15/2018 [facility] DATE CREATED AUTHOR AUTHOR'S ORGANIZ ATION 07/02/2018 [facility] DATE CREATED AUTHOR AUTHOR'S ORGANIZ ATION 10/13/2021 [facility] DATE CREATED AUTHOR AUTHOR'S ORGANIZ ATION 10/15/2021 [facility] DATE CREATED AUTHOR AUTHOR'S ORGANIZ ATION 10/15/2021 [facility] DATE CREATED AUTHOR AUTHOR'S ORGANIZ ATION 08/11/2023 [facility] DATE CREATED AUTHOR AUTHOR'S ORGANIZ ATION 10/03/2023 [facility] DATE CREATED AUTHOR AUTHOR'S ORGANIZ ATION 10/25/2023 [facility] DATE CREATED AUTHOR AUTHOR'S ORGANIZ ATION 07/28/2024 [facility] Hospital DATE CREATED AUTHOR AUTHOR'S ORGANIZ ATION 04/13/2025 [facility] Reason for Visit (unrecogniz ed section and content) Reason Comments Psychiatric Evaluation Other Medical Clearance [facility]. Status Reason Specialty Diagnoses / Procedures Referred By Contact Referred To Contact Closed Heart and Vascul ar Diagnostics Diagnoses SVT (supraventricular tachycardia) (HCC) Procedures Holter Monitor Complete - 24 Hour Karire Willis PA [address] [place] [address] Heart Vascular Diag [address] [id number] Reason Comments Outpatient Physical Therapy Status Reason Specialty Diagnoses / Procedures Referred By Contact Referred To Contact Authorized Physical Therapy Diagnoses Chronic low back pain, unspecified back pain laterality, unspecified whether sciatica present Karrie Willis PA [address] [place] [address] Negrita Zamora, PT, DPT Status Reason Specialty Diagnoses / Procedures Re ferred By Contact Referred To Contact Diagnoses SVT (supraventricular tachycardia) ([facility]) Procedures MT EPHYS EVAL W/ABLATION SUPRAVENT ARRHYTHMIA INTRACARD ECHOCARD W/THER/DX IVNTJ INCL IMG S&I MT INTRACARDIAC ELECTROPHYSIOLOGIC 3D MAPPING PROGRAMMED STIMJ&PACG AFTER IV DRUG NFS MT COMPRE ELECTROPHYSIOL XM W/LEFT ATRIAL PACNG/REC Ananda Zhang MD [address] [place] [address] Daniel Rosenbaum MD [address] [place] [address] Reason Comments Medication Refill Reason Comments Information or Advice only Reason Comments Burn Status Reason Specialty Diagnoses / Procedures Referred By Contact Referred To Contact Closed Heart and Vascul ar Diagnostics Diagnoses SVT (supraventricular tachycardia) (HCC) Procedures Echocardiogram complete (M-Mode/2D) Karrie Willis PA [address] [place] [address] Heart Vascular Diag [address] [place] [address] Status Reason Specialty Diagnoses / Procedures Referred By Contact Referred To Contact Closed Heart and Vascul ar Diagnostics Diagnoses Bradycardia with 41-50 beats per minute Procedures Cardiac Event Monitor - 30 Day Karrie Willis PA [address] [place] [address] Heart V[facility] Diag [address] [place] [address] Reason Comments Irregular Heart Beat Reason Comments Alcohol Problem Reason Comments Foot Pain Flat footed and the arch in his right foot hurts. X1 week, Numbness in some toes. When he moves it, it feels like the tendons are stretching into his calf. Reason Comments Pain Pt is here for pain in R foot. Specialty Diagnoses / Procedures Referred By Aries sevilla Referred To Contact Orthopedic Surgery Diagnoses Plantar fasciitis of right foot Pes planus, unspecified laterality Peroneal tendonitis, right Wion, Thomas Jeffery, [address] [place] [address] Andre Duong, DPM [address] [place] [address] Referral ID Status Reason Start Date Expiration Date Visits Re quested Visits Authorized [id number] Closed 09/07/2021 09/07/2022 1 1 Reason Comments Pain Fracture Toe Pain New problem left 5th MT fx Reason Comments Establish Care Reason Onset Date Comments Medication Refill 11/18/2021 Reason Comments New Patient Establish care. Bila teral ear wax ( would like to have flushed) Reason Comments Consult ENT #[id number] Reason Comments Referral Request Establish Care WHITNEY 7/ phq9 Complete d Reason Comments Behavioral Health/Social Work Reason Onset Date Comments Refill Request 05/14/2023 Reason Comments Multiple Concerns Blood pressure and p ain management Reason Onset Date Comments Refill Request 06/24/2023 Reason Comments Follow Up Reason Onset Date Comments Refill Request 07/20/2023 Specialty Diagnoses / Procedures Referred By Aries sevilla Referred To Contact Diagnoses Alcohol abuse Procedures CONSULT TO CHEMICAL DEPENDENCY OFFICE/OUTPATIENT NEW HIGH MDM 60-74 MINUTES Alecia Bess LISW [address] [place] [address] Referral ID Status Reason Start Date Expiration Date Visits Requested Visits Authorized [id number] Pending Review PCP Requested Referral 07/21/2023 07/20/2024 1 1 Reason Onset Date Comments Refill Request 08/17/2023 Reason Onset Date Comments Refill Request 10/20/2023 Reason Onset Date Comments Refill Request 11/01/2023 Reason Comments Ear Pain L ear x1 week, swell ing and drainage Reason Comments Herpes Reason Comments Follow Up WHITNEY, patient would l chanell to discuss medications, needs refill but not sure which one Reason Comments Forms Form plasm donations Reason Onset Date Comments Refill Request 07/07/2024 Reason Comments Dental Problem L lower tooth absces s x2 days Danica Gaming RN - 12/22/2020 6:09 PM EDSirisha Winchester RN - 12/22/2020 5:37 PM EDTErika Mckeon RN - 12/22/2020 5:03 PM EDTBAde shelton RN - 12/22/2020 4:10 PM EDT ED Notes (unrecognized secti on and content) This RN called and spoke with Andre at [facility], he states that they are ready for patient. Eliel Asencio states pt has been approved to go to [facility], pending negative covid, will fax over the paperwork Called Crisis center they are working on pt admission This RN faxed ER summary, labs and psych ease RN note to [facility]. This RN called [facility] at [phone] and spoke to Janis. She reports once she receives the fax, she will call their Crisis Counselor production scheduler and will call ER to complete Crisis assessment over the phone. This RN will inform nurse caring for pt. Erika Mckeon RN. Met with pt. In room. He is a/o x 3, depressed mood and affect. Pt reports he completed the intake with [facility] and reports they will have a bed available tomorrow or the next day. Pt. Reports he was living with his girlfriend, she got fired from her job and left to go back to her parents. They received an eviction notice and now he is homeless. Pt reports he has no family he can stay with. Pt reports he was binge drinking A fifth to one half gallon of 50% Vodka and last drunk was on 12/16/20. He did have 2 shots of liquor last night. Pt denies s/i, denies h/i, denies hallucinations. Denies w/d symptoms. Ethanol level neg. Tox screen positive for marijuana. Pt reports he has been to the Crisis Center and would like to go there until he can get into [facility] for treatment. ED Diagnosis and Summary 1. Depression, unspecified depression type 2. History of alcohol abuse ED Summary Medical screening evaluation, including screening blood work and urine testing, is unremarkable. The patient is depressed but not suicidal. He wants to go to crisis and eventually to [facility] for rehab but I am told that [facility] will not have a bed for at least another day, maybe two. Will ask psych nurse to facilitate evaluation for the crisis center. History Chief Complaint Patient presents with Alcohol Problem 50M, history of ethanol abuse, had been clear for about 8 months but recently relapsed, presents with depression. He reports he wants to eventually go to [facility] where he has been before but in the meantime believes he would benefit from spending some time at the crisis center. He denies suicidal ideations. His last episode of any significant drinking was a week ago although he admits to having two shots last night. Symptoms are severe, constant. Review of Systems Psychiatric/Behavioral: Positive for dysphoric mood. Negative for suicidal ideas. All other systems reviewed and are negative. ED Current OP Medications Medication Sig Dispense Doc. Provider DULoxetine (CYMBALTA) 60 MG capsule Take 1 capsule by mouth nightly. 10 capsule Karrie Willis PA HM ASPIRIN EC LOW DOSE 81 MG EC tablet TAKE 1 TABLET BY MOUTH DAILY. 90 tablet Ananda Zhang MD ibuprofen (ADVIL,MOTRIN) 600 MG tablet TAKE 1 TABLET BY MOUTH EVERY 8 HOURS NEEDED FOR PAIN (TAKE WITH FOOD.). 90 tablet Mavis Little, melatonin 3 MG TABS Take 3 mg by mouth nightly as needed for Sleep. Provider, MD Hayley valACYclovir (VALTREX) 500 MG tablet Take 1 tablet by mouth daily. 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] Depression [F32.9] Anxiety [F41.9] Hyperlipidemia [E78.5] Cerebral artery occlusion with cerebral infarction (HCC) [I63.50] 2016 TIA Surgical History Past Surgical History Laterality Date Comments Spine surgery [VPG121] 2005 lumbar cardiac ablation [Other] 08/29/2019 Dr Zhang Tooth Extraction [NJO069] Left 11/08/2019 Social History Tobacco History Smoking Status Current Every Day Smoker Smoking Frequency 0.5 packs/day for 5 years (2.5 pk yrs) Smoking Tobacco Type Cigarettes Smokeless Tobacco Use Never Used Alcohol History Alcohol Use Status Yes Comment sober for 5 months 11/21/19 Drug Use Drug Use Status Not Currently Types Marijuana Comment has not used since07/04/19, hx of cocaine Sexual Activity Sexually Active Not Currently Activities of Daily Living Not Asked Nursing notes, past medical/surgical/family/social/psychiatric history, and medication and allergy list reviewed. Agree with above unless otherwise noted. Physical Exam ED Triage Vitals [12/22/20 0900] BP (!) 165/97 Heart Rate 91 Resp 20 Temp 97.7 F (36.5 C) Temp Source FOREHEAD SpO2 97 % Weight 200 lb (90.7 kg) Height 5' 10 (1.778 m) BMI (Calculated) 28.7 Physical Exam Vitals and nursing note reviewed. Constitutional: Appearance: Normal appearance. HENT: Head: Normocephalic and atraumatic. Eyes: Extraocular Movements: Extraocular movements intact. Pupils: Pupils are equal, round, and reactive to light. Cardiovascular: Rate and Rhythm: Normal rate and regular rhythm. Pulmonary: Effort: Pulmonary effort is normal. No respiratory distress. Musculoskeletal: General: Normal range of motion. Cervical back: Normal range of motion and neck supple. Skin: General: Skin is warm and dry. Neurological: General: No focal deficit present. Mental Status: He is alert and oriented to person, place, and time. Psychiatric: Mood and Affect: Mood is depressed. Thought Content: Thought content does not include suicidal ideation. Thought content does not include suicidal plan. Comments: Tearful at times during assessment ED Course Procedures Medical Decision Making Number of Diagnoses or Management Options Amount and/or Complexity of Data Reviewed Clinical lab tests: ordered and reviewed Violetta Herrera MD 12/22/20 1543 Met with pt. In room. Pt is currently on cell phone reports speaking to a person in Intake at [facility]. Will come back to meet with pt. Shortly. Pt calling [facility] at this time to see if they have a bed Pt given pudding, cookies and a min Pt resting in bed wanting a sandwich Pt resting in bed no needs at this time Pt presents to ED via car w/c/o needing rehab for etoh. Pt reports his last drink was yesterday. Pt st prior to that he was sober for 2 days. Pt is tearful in triage. Pt t normally drinks a handle of vodka a day Pt. AOx3, in NAD, resp. easy unlabored, skin w/p/d. documented in this encounter Care Teams (unrecognized sec tion and content) Team Status: Active Member Role Status Dates Dr. Peggy Nicole , Primary Care Provider Active Team Status: Inactive Member Role Status Dates Dr. Kris Wood DO Referring Provider Active S tart: February 15, 2025 End: February 18, 2025 Dr. Kris Wood DO Emergency Provider Active S tart: February 15, 2025 End: February 18, 2025 Dr. Peggy Nicole DO Primary Care Provider Active Start: February 15, 2025 End: February 18, 2025 Dr. Samantha Leung MD Admit Provider Active St art: February 15, 2025 End: February 18, 2025 Dr. Samantha Leung MD Other Provider Active St art: February 15, 2025 End: February 18, 2025 Dr. Tammy Cespedes MD Attending Provider Active Start: February 15, 2025 End: February 18, 2025 Dr. Vu Jean MD Other Provider Active Sta rt: February 15, 2025 End: February 18, 2025 Team Status: Active Member Role Status Dates Dr. Kris Wood DO Referring Provider Active S tart: February 15, 2025 Dr. Kris Wood DO Emergency Provider Active S tart: February 15, 2025 Dr. Peggy Nicole DO Primary Care Provider Active Start: February 15, 2025 Dr. Samantha Leung MD Attending Provider Active Start: February 15, 2025 Team Status: Active Member Role Status Dates Dr. Kris Wood DO Referring Provider Active S tart: February 16, 2025 Dr. Kris Wood DO Emergency Provider Active S tart: February 16, 2025 Dr. Peggy Nicole DO Primary Care Provider Active Start: February 16, 2025 Dr. Samantha Leung MD Admit Provider Active St art: February 16, 2025 Dr. Samantha Leung MD Other Provider Active St art: February 16, 2025 Dr. Vu Jena MD Attending Provider Active Start: February 16, 2025 Dr. Vu Jean MD Other Provider Active Sta rt: February 16, 2025 Team Status: Active Member Role Status Dates Dr. Kris Wood DO Referring Provider Active S tart: February 17, 2025 Dr. Kris Wood DO Emergency Provider Active S tart: February 17, 2025 Dr. Peggy Nicole DO Primary Care Provider Active Start: February 17, 2025 Dr. Samantha Leung MD Admit Provider Active St art: February 17, 2025 Dr. Samantha Leung MD Other Provider Active St art: February 17, 2025 Dr. Vu Jean MD Attending Provider Active Start: February 17, 2025 Dr. Vu Jean MD Other Provider Active Sta rt: February 17, 2025 Stained Glass Glazier Helper Relationship Specialty Start Date End Date No, Physician [facility] PCP - General 06/19/21 Stained Glass Glazier Helper Relationship Specialty Start Date End Date No, Physician [facility] PCP - General 06/19/21 Stained Glass Glazier Helper Relationship Specialty Start Date End Date Alda Maria MD [address] [place] [address] PCP - General Family Medicine 10/14/21 Stained Glass Glazier Helper Relationship Specialty Start Date End Date Alda Maria MD [address] [place] [address] PCP - General Family Medicine 10/14/21 Stained Glass Glazier Helper Relationship Specialty Start Date End Date Alda Maria MD [address] [place] [address] PCP - General Family Medicine 10/14/21 Stained Glass Glazier Helper Relationship Specialty Start Date End Date Alda Maria MD [address] [place] [address] PCP - General Family Medicine 10/14/21 Stained Glass Glazier Helper Relationship Specialty Start Date End Date Dae Mari APRN.MAMMOGRAPHY TECHNICIAN [address] [place] [address] PCP - General Family Medicine 02/16/23 Stained Glass Glazier Helper Relationship Specialty Start Date End Date Dae Mari APRN.MAMMOGRAPHY TECHNICIAN [address] [place] [address] PCP - General Family Medicine 02/16/23 Stained Glass Glazier Helper Relationship Specialty Start Date End Date Peggy Nicole, [address] [place] [address] PCP - General Family Medicine 04/19/23 Stained Glass Glazier Helper Relationship Specialty Start Date End Date Peggy Nicole DO [address] [place] [address] PCP - General Family Medicine 04/19/23 Stained Glass Glazier Helper Relationship Specialty Start Date End Date Peggy Nicole DO [address] [place] [address] PCP - General Family Medicine 04/19/23 Stained Glass Glazier Helper Relationship Specialty Start Date End Date Peggy Nicole DO [address] [place] [address] PCP - General Family Medicine 04/19/23 Stained Glass Glazier Helper Relationship Specialty Start Date End Date Peggy Nicole DO [address] [place] [address] PCP - General Family Medicine 04/19/23 Stained Glass Glazier Helper Relationship Specialty Start Date End Date Peggy Nicole DO [address] [place] [address] PCP - General Family Medicine 04/19/23 Stained Glass Glazier Helper Relationship Specialty Start Date End Date Peggy Nicole DO [address] [place], [place] [address] PCP - General Family Medicine 04/19/23 Stained Glass Glazier Helper Relationship Specialty Start Date End Date Peggy Nicole DO [address] [place] [address] PCP - General Family Medicine 04/19/23 Stained Glass Glazier Helper Relationship Specialty Start Date End Date Peggy Nicole DO [address] [place] [address] PCP - General Family Medicine 04/19/23 Stained Glass Glazier Helper Relationship Specialty Start Date End Date Peggy Nicole DO [address] [place] [address] PCP - General Family Medicine 04/19/23 Stained Glass Glazier Helper Relationship Specialty Start Date End Date Peggy Nicole DO [address] [place] [address] PCP - General Family Medicine 04/19/23 Team Status: Active Member Role Status Dates No Primary Care Physician Primary Care Provider Active Team Status: Active Member Role Status Dates Dr. Sloan Gonzalez , DO Emergency Provider Active No Primary Care Physician Primary Care Provider Active Dr. Sloan Villalobos DO Admit Provider, At tending Provider, Other Provider Active Team Status: Active Member Role Status Dates Dr. Sloan Gonzalez DO Emergency Provider Active No Primary Care Physician Primary Care Provider Active Dr. Sloan Villalobos DO Admit Provider, Attending Provid er Active Team Status: Active Member Role Status Dates Dr. Sloan Gonzalez DO Emergency Provider Active No Primary Care Physician Primary Care Provider Active Dr. Sloan Villalobos DO Admit Provider, Other Provider A ctive Dr. Anatoly Peck , DO Attending Provider, Other Pro vider Active Team Status: Active Member Role Status Dates Dr. Sloan Gonzalez , DO Emergency Provider Active No Primary Care Physician Primary Care Provider Active Dr. Sloan Villalobos DO Admit Provider, Other Provider A ctive Dr. Umang Bassett MD Attending Provider, Other Provid er Active Dr. Anatoly Peck , DO Other Provider Active Team Status: Inactive Member Role Status Dates Dr. Sloan Gonzalez , DO Emergency Provider Active No Primary Care Physician Primary Care Provider Active Dr. Sloan Villalobos DO Admit Provider, Other Provider A ctive Dr. Umang Bassett MD Attending Provider Active Dr. Anatoly Peck DO Other Provider Active Stained Glass Glazier Helper Relationship Specialty Start Date End Date Peggy Nicole DO [address] [place] [address] PCP - General Family Medicine 04/19/23 Stained Glass Glazier Helper Relationship Specialty Start Date End Date Peggy Nicole DO [address] [place] [address] PCP - General Family Medicine 04/19/23 Stained Glass Glazier Helper Relationship Specialty Start Date End Date Peggy Nicole DO [address] [place] [address] PCP - General Family Medicine 04/19/23 Team Status: Active Member Role Status Dates Dr. Kris Wood DO Referring Provider Active S tart: February 15, 2025 Dr. Kris Wood DO Emergency Provider Active S tart: February 15, 2025 Dr. Peggy Nicole DO Primary Care Provider Active Start: February 15, 2025 Dr. Samantha Leung MD Admit Provider Active St art: February 15, 2025 Dr. Samantha Leung MD Attending Provider Active Start: February 15, 2025 Source Comments (unrecognize d section and content) In the event this informatio n is protected by the Federal Confidentiality of Alcohol and Drug Abuse Patient Records regulations: The Federal rules restrict any use of the information to criminally investigate or prosecute any alcohol or drug abuse patient.[facility] TroyIn the event this information is protected by the Federal Confidentiality of Alcohol and Drug Abuse Patient Records regulations: The Federal rules restrict any use of the information to criminally investigate or prosecute any alcohol or drug abuse patient.[facility] TroyIn the event this information is protected by the Federal Confidentiality of Alcohol and Drug Abuse Patient Records regulations: The Federal rules restrict any use of the information to criminally investigate or prosecute any alcohol or drug abuse patient.[facility] TroyIn the event this information is protected by the Federal Confidentiality of Alcohol and Drug Abuse Patient Records regulations: The Federal rules restrict any use of the information to criminally investigate or prosecute any alcohol or drug abuse patient.[facility] TroyIn the event this information is protected by the Federal Confidentiality of Alcohol and Drug Abuse Patient Records regulations: The Federal rules restrict any use of the information to criminally investigate or prosecute any alcohol or drug abuse patient.[facility] TroyIn the event this information is protected by the Federal Confidentiality of Alcohol and Drug Abuse Patient Records regulations: The Federal rules restrict any use of the information to criminally investigate or prosecute any alcohol or drug abuse patient.[facility] TroyIn the event this information is protected by the Federal Confidentiality of Alcohol and Drug Abuse Patient Records regulations: The Federal rules restrict any use of the information to criminally investigate or prosecute any alcohol or drug abuse patient.[facility] TroyIn the event this information is protected by the Federal Confidentiality of Alcohol and Drug Abuse Patient Records regulations: The Federal rules restrict any use of the information to criminally investigate or prosecute any alcohol or drug abuse patient.[facility] TroyIn the event this information is protected by the Federal Confidentiality of Alcohol and Drug Abuse Patient Records regulations: The Federal rules restrict any use of the information to criminally investigate or prosecute any alcohol or drug abuse patient.[facility] TroyIn the event this information is protected by the Federal Confidentiality of Alcohol and Drug Abuse Patient Records regulations: The Federal rules restrict any use of the information to criminally investigate or prosecute any alcohol or drug abuse patient.[facility] TroyIn the event this information is protected by the Federal Confidentiality of Alcohol and Drug Abuse Patient Records regulations: The Federal rules restrict any use of the information to criminally investigate or prosecute any alcohol or drug abuse patient.[facility] TroyIn the event this information is protected by the Federal Confidentiality of Alcohol and Drug Abuse Patient Records regulations: The Federal rules restrict any use of the information to criminally investigate or prosecute any alcohol or drug abuse patient.[facility] TroyIn the event this information is protected by the Federal Confidentiality of Alcohol and Drug Abuse Patient Records regulations: The Federal rules restrict any use of the information to criminally investigate or prosecute any alcohol or drug abuse patient.[facility] TroyIn the event this information is protected by the Federal Confidentiality of Alcohol and Drug Abuse Patient Records regulations: The Federal rules restrict any use of the information to criminally investigate or prosecute any alcohol or drug abuse patient.[facility] TroyIn the event this information is protected by the Federal Confidentiality of Alcohol and Drug Abuse Patient Records regulations: The Federal rules restrict any use of the information to criminally investigate or prosecute any alcohol or drug abuse patient.[facility] TroyIn the event this information is protected by the Federal Confidentiality of Alcohol and Drug Abuse Patient Records regulations: The Federal rules restrict any use of the information to criminally investigate or prosecute any alcohol or drug abuse patient.[facility] TroyIn the event this information is protected by the Federal Confidentiality of Alcohol and Drug Abuse Patient Records regulations: The Federal rules restrict any use of the information to criminally investigate or prosecute any alcohol or drug abuse patient.[facility] TroyIn the event this information is protected by the Federal Confidentiality of Alcohol and Drug Abuse Patient Records regulations: The Federal rules restrict any use of the information to criminally investigate or prosecute any alcohol or drug abuse patient.[facility] TroyIn the event this information is protected by the Federal Confidentiality of Alcohol and Drug Abuse Patient Records regulations: The Federal rules restrict any use of the information to criminally investigate or prosecute any alcohol or drug abuse patient.[facility] TroyIn the event this information is protected by the Federal Confidentiality of Alcohol and Drug Abuse Patient Records regulations: The Federal rules restrict any use of the information to criminally investigate or prosecute any alcohol or drug abuse patient.[facility] TroyIn the event this information is protected by the Federal Confidentiality of Alcohol and Drug Abuse Patient Records regulations: The Federal rules restrict any use of the information to criminally investigate or prosecute any alcohol or drug abuse patient.[facility] TroyIn the event this information is protected by the Federal Confidentiality of Alcohol and Drug Abuse Patient Records regulations: The Federal rules restrict any use of the information to criminally investigate or prosecute any alcohol or drug abuse patient.[facility] TroyIn the event this information is protected by the Federal Confidentiality of Alcohol and Drug Abuse Patient Records regulations: The Federal rules restrict any use of the information to criminally investigate or prosecute any alcohol or drug abuse patient.[facility] TroyIn the event this information is protected by the Federal Confidentiality of Alcohol and Drug Abuse Patient Records regulations: The Federal rules restrict any use of the information to criminally investigate or prosecute any alcohol or drug abuse patient.[facility] TroyIn the event this information is protected by the Federal Confidentiality of Alcohol and Drug Abuse Patient Records regulations: The Federal rules restrict any use of the information to criminally investigate or prosecute any alcohol or drug abuse patient.[facility] Goals (unrecognized section and content) Goals may be documented in a n alternate section FOR RECORDS PERTAINING TO PATIENTS WHO ARE OR HAVE BEEN ENROLLED IN A CHEMICAL DEPENDENCY/SUBSTANCEABUSE PROGRAM, SOME INFORMATION MAY BE OMITTED. This clinical summary was aggregated from multiple sources. Caution should be exercised in using it in the provision of clinical care. This summary normalizes information from multiple sources, and as a consequence, information in this document may materially change the coding, format and clinical context of patient data. In addition, data may be omitted in some cases. CLINICAL DECISIONS SHOULD BE BASED ON THE PRIMARY CLINICAL RECORDS. [facility]. provides no warranty or guarantee of the accuracy or completeness of information in this document.
[2025-04-20 21:47] LABS: Hematocrit 43.5 % (40-54); Hemoglobin 14.9 g/dL (13.0-16.5); Immature Granulocytes Count 0.040 X10^3/uL (0.0-0.0); Mean Corp Hgb Conc 34.3 g/dL (32-36); Mean Corpuscular Volume 90.1 fL (80-94); Mean Platelet Vol. 9.0 fl (6.2-12.0); NRBC Flagged by Analyzer 0 % (0-5); Platelet Count 249 K/mm3 (150-450); RBC Distribution Width CV 12.7 % (11.6-14.6); RBC Distribution Width SD 42.0 fl (35.1-43.9); Red Blood Count 4.83 M/mm3 (4.6-6.2); White Blood Count 10.0 K/mm3 (4.4-11.0)
[2025-04-20 21:59] LABS: Alcohol, Blood (Medical)-Serum 124.0 mg/dL (<=10.0)
[2025-04-20 22:00] LABS: AST(SGOT) 117 U/L (<=37); Alanine Aminotransfer ALT/SGPT 99 U/L (<=46); Albumin, Serum 4.5 g/dL (3.5-5.0); Alkaline Phosphatase 130 U/L (40-129); Anion Gap 15 (5-15); BUN 10 mg/dL (4-19); BUN/Creat Ratio 9.5 RATIO (10-20); Calcium,Total 9.5 mg/dL (7.6-11.0); Carbon Dioxide 25.6 mmol/L (21.0-32.0); Chloride 99 mmol/L (98-108); Estimated Creatinine Clearance 96.71 ml/min (50-250); Globulin 3.2 g/dL (2.2-4.2); Glucose 117 mg/dL (70-99); Potassium 3.6 mmol/L (3.3-5.1)
[2025-04-20 22:03] VITALS: BP 133/81; PULSE 71; RESP 20; TEMP 36; O2SAT 94
--- NOTE | 2025-04-20 22:06 | PCM.HP.STD ---
[facility] - General General Date of Admission: 04/20/25 Date of Service: 04/20/25 Chief Complaint: Requesting EtOH Detox. HPI Narrative SLOAN WATERS, is a 55 M with a past medical history of essential hypertension; on amlodipine, obesity (class II); with BMI of 35.5 this admission, depression with anxiety; on duloxetine twice daily and buspirone 3 times daily plus hydroxyzine as needed 3 times daily, OA; on ibuprofen 3 times daily as needed, tobacco abuse, history of alcoholic hepatitis and chronic polysubstance abuse with EtOH, history of amphetamine abuse via smoking and cannabis with recent admission here from February 15, 2025 to February 18, 2025 for treatment of EtOH detox who re-presents to [facility] ER once again requesting EtOH detox. Mr. Pham reports chronically drinking 1-2/5 of vodka per day over the past 5 years punctuated by brief periods of sobriety. He also admits to cannabis abuse. He typically experiences withdrawal symptoms pursing in the morning including shakiness, anxiety, nausea and occasionally has hallucinations but his last drink was this evening with no current symptoms of withdrawal. In the ER he was noted to have a EMMIE of 124 mg/dL complicated by Transaminitis; with AST 117 units/L, ALT of 99 units/L and alkaline phosphatase of 130 units/L likely due to EtOH Hepatitis in the setting of chronic and recalcitrant EtOH abuse and he was then admitted to the general medical floor for treatment under the EtOH withdrawal protocol for stay that is expected to extend beyond 2 midnights. [facility] Medical History Polysubstance abuse Anxiety Depression Hypertension Home Medications ?Medication ?Instructions ?Recorded ?Last Taken ?Type amlodipine 5 mg tablet 5 mg PO DAILY 12/17/23 02/15/25 History buspirone 10 mg tablet 10 mg PO TID 12/17/23 02/15/25 History duloxetine 60 mg capsule,delayed 60 mg PO DAILY 12/17/23 02/15/25 History release hydroxyzine pamoate 25 mg capsule 50 mg PO TID PRN anxiety 12/17/23 02/15/25 History ibuprofen 600 mg tablet 600 mg PO TID PRN pain 12/17/23 02/15/25 History duloxetine 30 mg capsule,delayed 30 mg PO QHS 02/15/25 Unknown History release Allergy/AdvReac Type Severity Reaction Status Date / Time No Known Allergies Allergy Verified 04/20/25 21:05 Family History Other Alcoholism Social History Smoking Status: Current every day smoker tobacco type: cigarettes Smokeless tobacco user: other substance use type: marijuana and amphetamines ROS ROS Narrative Review of Systems: Constitutional: Patient denies fever or chills. Eyes: Patient denies change in vision or discharge from eyes. ENT: Patient denies runny nose, sore throat or ear pain. Resp: Patient denies shortness of breath or cough. CV: Patient denies chest pain, palpitations, heart racing or lower extremity edema. GI: Patient denies abdominal pain, nausea, vomiting, diarrhea or constipation. : Patient denies dysuria or hematuria. MSK: Patient denies arthralgias or myalgias. Skin: Patient denies rash, abscess, wounds or jaundice. Psych: Patient denies symptoms of uncontrolled depression or anxiety. Neuro: Patient denies headache, paresthesias or focal neurologic deficits. Allergy: Patient denies lip swelling, tongue swelling or urticaria. Hematology: Patient denies easy bleeding or easy bruisability. Endocrinology: Patient denies polyuria, polydipsia, polyphagia or heat/cold intolerance. 14 point ROS otherwise negative except for positives noted above in HPI. Vital Signs Vital Signs Vital Signs: 04/20/25 21:04 Temperature 97.4 F L Temperature Source Temporal Pulse Rate 83 Respiratory Rate 20 H Blood Pressure 120/88 H Blood Pressure Mean 98 Pulse Ox 95 Oxygen Delivery Method Room Air Weight Weight: 247 lb 7 oz Body Mass Index (BMI) 35.4 Physical Exam Const alert, oriented x3 and no apparent distress Constitutional Narrative: Obese and intoxicated. General Appearance: cooperative HEENT normocephalic, head/scalp atraumatic, hearing grossly normal bilaterally and moist oral mucous membranes Eyes PERRL, EOMs intact bilaterally and conjunctivae normal Neck no lymphadenopathy, supple and no JVD Resp normal respiratory effort, no retractions, no use of accessory muscles and clear to auscultation bilaterally Cardio regular rate and regular rhythm GI normal to inspection, nondistended, normoactive bowel sounds, soft to palpation, non-tender and non-distended GI Narrative: Obese. Extremity normal to inspection, full ROM and no clubbing, cyanosis or edema Skin Skin Narrative: Patient has evidence of rash, abscess, wounds or jaundice. Neuro oriented x3, CN's II-XII intact bilaterally, moves all extremities and no focal motor deficits Sensorium / Orientation: awake, alert, oriented to person, oriented to place and oriented to time Speech: speech normal Psych affect normal Results Medical Records Data Attestation: I reviewed the patient's medical records Lab / Micro Data Attestation: I reviewed the patient's lab results. 04/20/25 21:27 04/20/25 21:27 Labs: Laboratory Results - last 24 hr 04/20/25 21:27: WBC 10.0, RBC 4.83, Hgb 14.9, Hct 43.5, MCV 90.1, MCH 30.8, MCHC 34.3, RDW Std Deviation 42.0, RDW Coeff of Jacy 12.7, Plt Count 249, MPV 9.0, Immature Gran % (Auto) 0.400, Neut % (Auto) 63.0, Lymph % (Auto) 20.1, [place] % (Auto) 6.3, Eos % (Auto) 8.9 H, Baso % (Auto) 1.3 H, Absolute Neuts (auto) 6.3, Absolute Lymphs (auto) 2.01, Nucleated RBC % 0, Sodium 139, Potassium 3.6, Chloride 99, Carbon Dioxide 25.6, Anion Gap 15, BUN 10, Creatinine 1.07, Estim Creat Clear Calc 96.71, Est GFR (MDRD) Non-Af 81, BUN/Creatinine Ratio 9.5 L, Glucose 117 H, Calcium 9.5, Total Bilirubin 0.80, AST 117 H, ALT 99 H, Alkaline Phosphatase 130 H, Total Protein 7.7, Albumin 4.5, Globulin 3.2, Albumin/Globulin Ratio 1.4, Ethyl Alcohol 124.0 H Assessment & Plan Assessment/Plan (1) Alcohol intoxication: QUALIFIERS: Complication of substance-induced condition: uncomplicated Qualified Code(s): F10.920 - Alcohol use, unspecified with intoxication, uncomplicated (2) Alcohol abuse: (3) Desire for detoxification: (4) Alcoholic hepatitis: QUALIFIERS: Ascites presence: without ascites Qualified Code(s): K70.10 - Alcoholic hepatitis without ascites (5) Transaminitis: (6) Tobacco abuse: (7) Obesity (BMI 30-39.9): (8) Depression with anxiety: PLAN: Plan 1. Acute EtOH intoxication in the setting of chronic EtOH abuse with request for EtOH detox with laboratory evidence of Transaminitis likely due to EtOH Hepatitis - Admit to general medical floor for treatment under the EtOH detoxification protocol primarily consisting of phenobarbital taper. Patient is intoxicated and not having symptoms of withdrawal at this time. EtOH Cessation will be strongly encouraged. Give ondansetron as needed for nausea vomiting. Give ibuprofen as needed for pain or fever. 2. History of alcoholic hepatitis and chronic polysubstance abuse with EtOH, smoking methamphetamines and cannabis with recent admissions here from February 15, 2025 to February 18, 2025 for treatment of EtOH detox complicating #1 - Noted with evolving ominous pattern of serial readmission for chronic EtOH abuse pointing to the seeming limited effective of this approach to managing addiction for this particular patient. 3. Tobacco Abuse compounding #1 & #2 - Tobacco Cessation will be strongly encouraged with Nicotine patch offered to control cravings. 4. Obesity (class II); with BMI of 35.5 this admission adding to the burden of disease outlined from #1 - #3 - Weight loss will be recommended. Check TSH. This complicates his case and may hamper recovery. 5. Depression with anxiety; on duloxetine twice daily and buspirone 3 times daily plus hydroxyzine as needed 3 times daily adding to the medical complexity of #1 - #4 - Maintain present therapy. 6. Essential hypertension; on amlodipine - Resume amlodipine as before. 7. OA; on ibuprofen 3 times daily as needed - Continue prn ibuprofen as noted in #1. 8. DVT prophylaxis - Enoxaparin 40 mg sq daily plus up ad janeth. Total time: Approximately (but not less than) 75 minutes. Charges/Coding Visit Charges Inpatient E&M: 87257 Init Hosp L3
--- OUTSIDE RECORDS SUMMARY | 2025-04-20 22:46 | XMS RPT_ITS | CCD ---
Author Organization [facility] Care Team Providers Care Twist Maker Name Role Phone HEATHER, DARRELL D Unavailable Unavailable HEATHER, DARRELL D Unavailable Unavailable NEELA HORNE Unavailable Unavailable SANDIE FLORES Unavailable Unavailable HEATHER, DARRELL Unavailable Unavailable HEATHER, DARRELL D Unavailable Unavailable HEATHER, DARRELL D Unavailable Unavailable HEATHER, DARRELL D Unavailable Unavailable Unavailable Primary Care Provider UnavailKarrie Vora Primary Care Provider [phone] Negrita Zamora Unavailable Unavailable Ananda Zhang Unavailable [...] Information to Report Unavailable Unavail able Kamaljit LICENSED LAND SURVEYORDae MA Primary Care Provider Peggy Nicole DO Primary Care Provider ALECIA BESS Referring UnavailPEGGY Driver Primary Care Unavailable JAMES RODRIGUEZ Attending Unavailable FLACO LOPEZ Attending UnavailDAE Baldwin Attending Unavailable PEGGY NICOLE Referring Unavailable PEGGY NICOLE Primary Care Unavailable Dr. Sloan Gonzalez Emergency Provider Care Physician, No Primary Primary Care Provider [...] Unavailable Israel HOWE, Dr. Ponce Referring Provider [phone] Israel HOWE, Dr. Ponce Emergency Provider Bonnie HOWE, Dr. Olivarez Primary Care Provider Madhu CORREA, Dr. Singh Admit Provider Unavailab [...] Start: 12-17-2023 take 1 capsule by [facility] once daily Duloxetine 60 mg capsule,delayed release(DR/EC) [...] Active Start: 12-31-2019 take 1 tablet by heaht once daily valACYclovir (VALTREX) 500 MG tablet [...] Onset: 06-27-2017 Unclassified (1 source) Aphasia / [id number]() Onset: 06-11-2017 Unclassified (1 source) Unknown / [...] Range Facility Abdomen Limitedon 02-18-2025 Abdomen Limited [facility] Imaging Services [address] [place] [id number] Abdomen Limited MR#: [id number] Acct: [id number] Name: SLOAN HARVEY Rep #: [id number] : 1970 M 55 From: Paramjit Dumont PCP: Dr. Peggy Nicole, DO Status: DIS IN Study: Abdomen Limited Date of Exam: 02/18/25 Exam# [id number] Ordering Dr: Vu Jean MD PROCEDURE: ABDOMEN [...] hepatic steatosis. No acute cholecystitis. Reading Location: [facility] CC: Dr. Pegyg Nicole DO; Dr. Vu Jean MD Bill Poster Installer: Signed Normal [facility] Anion gap in Serum or Plasma Ordered By: Vu Jean on 02-18-2025 Anion gap [Moles/Vol] 13 mmol/L 5-15 [facility] BUN/creatinine ratioOrdered By: Vu Jean on 02-18-2025 Urea nitrogen/Creatinine [Mass ratio] 11.8 mg/mg 10-20 [facility] Bilirubin, totalOrdered By: Vu Jean on 02-18-2025 Bilirubin [Mass/Vol] 0.64 mg/dL 0.00-1.30 [facility] Carbon dioxide, total [Moles /volume] in Central venous bloodOrdered By: Vu Jean on 02-18-2025 CO2 [Moles/Vol] 21.6 mmol/L 21.0-32.0 [facility] Chloride assayOrdered By: Debbie Jean on 02-18-2025 Chloride [Moles/Vol] 104 mmol/L 98-108 [facility] Comprehensive Metabolic Prof ilon 02-18-2025 Albumin [Mass/Vol] 4.1 g/dL Normal 3.5-5.0 [facility] Comment on above: Performed By: #### L 499.0042 #### [facility] Laboratory [address] [place], [place], [id number] Albumin/Globulin [Mass ratio] 1.4 {ratio} Normal 0.9-2.4 [facility] Comment on above: Performed By: #### L 499.0042 #### [facility] [address] [place], [address] ALK PHOS 129 U/L Normal 40-129 [facility] Comment on above: Performed By: #### L 499.0042 #### [facility] [address] [place], [address] ALT [Catalytic activity/Vol] 120 U/L High <=46 [facility] Comment on above: Performed By: #### L 499.0042 #### [facility] [address] [place], [address] AST [Catalytic activity/Vol] 132 U/L High <=37 [facility] Comment on above: Performed By: #### L 499.0042 #### [facility] [address] [place], [address] Bilirubin [Mass/Vol] 0.64 mg/dL Normal 0.00-1.30 [facility] Comment on above: Performed By: #### L 499.0042 #### [facility] [address] [place], [address] BUN/CRE 11.8 RATIO Normal 10-20 [facility] Comment on above: Performed By: #### L 499.0042 #### [facility] [address] [place], [address] Calcium [Mass/Vol] 9.4 mg/dL Normal 7.6-11.0 [facility] Comment on above: Performed By: #### L 499.0042 #### [facility] [address] [place], [address] Chloride [Moles/Vol] 104 mmol/L Normal 98-108 [facility] Comment on above: Performed By: #### L 499.0042 #### [facility] [address] [place], [address] CO2 [Moles/Vol] 21.6 mmol/L Normal 21.0-32.0 [facility] Comment on above: Performed By: #### L 499.0042 #### [facility] [address] [place], [address] Creatinine [Mass/Vol] 0.86 mg/dL Normal 0.70-1.20 [facility] Comment on above: Performed By: #### L 499.0042 #### [facility] [address] [place], [address] ECRCL 120.36 ml/min Normal 50-250 [facility] Comment on above: Performed By: #### L 499.0042 #### [facility] [address] [place], [address] GAP 13 Normal 5-15 [facility] Comment on above: Performed By: #### L 499.0042 #### [facility] [address] [place], [address] GFR/1.73 sq M.predicted among non-blacks MDRD (S/P/Bld) [Vol rate/Area] 102 mL/min/{1.73_m2} Normal >60 [facility] Comment on above: Result Comment: mL/m in/1.73m2 CKD-EPI Creatinine Equation (2020) Performed By: #### L 499.0042 #### [facility] [address] [place], [address] Globulin (S) [Mass/Vol] 2.9 g/dL Normal 2.2-4.2 [facility] Comment on above: Performed By: #### L 499.0042 #### [facility] [address] [place], [address] Glucose [Mass/Vol] 105 mg/dL High 70-99 [facility] Comment on above: Performed By: #### L 499.0042 #### [facility] [address] [place], [address] Potassium [Moles/Vol] 3.7 mmol/L Normal 3.3-5.1 [facility] Comment on above: Performed By: #### L 499.0042 #### [facility] [address] [place], [place], [address] Sodium [Moles/Vol] 138 mmol/L Normal 133-145 [facility] Comment on above: Performed By: #### L 499.0042 #### [facility] [address] [place], [place], [address] T PROT 7.0 g/dL Normal 5.9-8.4 [facility] Comment on above: Performed By: #### L 499.0042 #### [facility] [address] [place], [place], [id number] Urea nitrogen [Mass/Vol] 10 mg/dL Normal 4-19 [facility] Comment on above: Performed By: #### L 499.0042 #### [facility] [address] [place], [place], [address] Discharge Instructionon 06-0 Discharge Instruction [facility] Medical Records Department [address] [place] [address] Instructions for Home/Discharge Instructions 02/18/25 1059 MR#: [id number] Acct: [id number] Name: SLOAN HARVEY Rep #: [id number] : 1970 55 From: Tammy Cespedes MD [...] DO; Dr. Vu Jean MD Signed Normal [facility] Electrocardiogram reportOrde red By: Blas Bergman on 02-18-2025 EKG study [facility] Cardiovascular Services [address] [place] [address] 12 Lead EKG 02/15/25 1556 MR#: [id number] Acct: [id number] Name: SLOAN HARVEY Rep #:[id number] : [...] QT Abnormal ECG Confirmed by Blas Bergman ([id number]), technical editor REGINA UGALDE ([id number]) on 02/18/2025 10:49:48 AM Referred By: Kris Wood Confirmed By: Blas Bergman 02/18/25 1049 Date _ Blas Bergman MD CC: Dr. Peggy Nicole DO; Dr. Tammy Cespedes MD; Dr. Kris Wood DO ~ Signed [facility] Other Phone: Glomerular filtration rate ( GFR) estimation/1.73 sq m using serum, plasma, or whole bOrdered By: Vu Jean on 02-18-2025 GFR/1.73 sq M.predicted among non-blacks MDRD (S/P/Bld) [Vol rate/Area] 102 mL/min/{1.73_m2} >60 [facility] Comment on above: mL/min/1.73m2 CKD-EP I Creatinine Equation (2020) Laboratory - Chemistry and C hemistry - challengeOrdered By: Vu Jean on 02-18-2025 AST [Catalytic activity/Vol] 132 U/L High <38 [facility] Potassium measurement (mass/ volume)Ordered By: Vu Jean on 02-18-2025 Potassium (Unsp spec) [Mass/Vol] 3.7 mmol/L 3.3-5.1 [facility] Serum creatinine measurement (mass/volume)Ordered By: Vu Jean on 02-18-2025 Creatinine [Mass/Vol] 0.86 mg/dL 0.70-1.20 [facility] Serum globulin measurementOr dered By: Vu Jean on 02-18-2025 Globulin (S) [Mass/Vol] 2.9 g/dL 2.2-4.2 [facility] Serum glucose measurement (m ass/volume)Ordered By: Vu Jean on 02-18-2025 Glucose [Mass/Vol] 105 mg/dL High 70-99 [facility] Serum or plasma alanine davidson otransferase (ALT) measurementOrdered By: Vu Jean on 02-18-2025 ALT [Catalytic activity/Vol] 120 U/L High <47 [facility] Serum or plasma albumin che urement (mass/volume)Ordered By: Vu Jean on 02-18-2025 Albumin [Mass/Vol] 4.1 g/dL 3.5-5.0 [facility] Serum or plasma albumin/glob ulin mass ratioOrdered By: Vu Jean on 02-18-2025 Albumin/Globulin [Mass ratio] 1.4 {ratio} 0.9-2.4 [facility] Serum or plasma alkaline salma sphatase measurementOrdered By: Vu Jean on 02-18-2025 ALP [Catalytic activity/Vol] 129 U/L 40-129 [facility] Serum or plasma calcium che urement (mass/volume)Ordered By: Vu Jean on 02-18-2025 Calcium [Mass/Vol] 9.4 mg/dL 7.6-11.0 [facility] Serum or plasma urea nitroge n measurement (mass/volume)Ordered By: Vu Jean on 02-18-2025 Urea nitrogen [Mass/Vol] 10 mg/dL 4-19 [facility] Sodium levelOrdered By: Regina Jean on 02-18-2025 Sodium [Moles/Vol] 138 mmol/L 133-145 [facility] Total proteinOrdered By: Ann Jean on 02-18-2025 Protein [Mass/Vol] 7.0 g/dL 5.9-8.4 [facility] Comprehensive Metabolic Prof ilon 02-17-2025 Albumin [Mass/Vol] 4.3 g/dL Normal 3.5-5.0 [facility] Comment on above: Performed By: #### L 499.0042 #### [facility] [address] [place], [place], [address] Albumin/Globulin [Mass ratio] 1.4 {ratio} Normal 0.9-2.4 [facility] Comment on above: Performed By: #### L 499.0042 #### [facility] [address] [place], [place], [address] ALK PHOS 130 U/L High 40-129 [facility] Comment on above: Performed By: #### L 499.0042 #### [facility] [address] [place], [address] ALT [Catalytic activity/Vol] 100 U/L High <=46 [facility] Comment on above: Performed By: #### L 499.0042 #### [facility] [address] [place], [address] AST [Catalytic activity/Vol] 101 U/L High <=37 [facility] Comment on above: Performed By: #### L 499.0042 #### [facility] [address] [place], [address] Bilirubin [Mass/Vol] 0.74 mg/dL Normal 0.00-1.30 [facility] Comment on above: Performed By: #### L 499.0042 #### [facility] [address] [place], [address] BUN/CRE 13.5 RATIO Normal 10-20 [facility] Comment on above: Performed By: #### L 499.0042 #### [facility] [address] [place], [address] Calcium [Mass/Vol] 9.4 mg/dL Normal 7.6-11.0 [facility] Comment on above: Performed By: #### L 499.0042 #### [facility] [address] [place], [address] Chloride [Moles/Vol] 102 mmol/L Normal 98-108 [facility] Comment on above: Performed By: #### L 499.0042 #### [facility] [address] [place], [address] CO2 [Moles/Vol] 25.8 mmol/L Normal 21.0-32.0 [facility] Comment on above: Performed By: #### L 499.0042 #### [facility] [address] [place], [address] Creatinine [Mass/Vol] 0.90 mg/dL Normal 0.70-1.20 [facility] Comment on above: Performed By: #### L 499.0042 #### [facility] [address] [place], [address] ECRCL 115.01 ml/min Normal 50-250 [facility] Comment on above: Performed By: #### L 499.0042 #### [facility] [address] [place], [address] GAP 11 Normal 5-15 [facility] Comment on above: Performed By: #### L 499.0042 #### [facility] [address] [place], [address] GFR/1.73 sq M.predicted among non-blacks MDRD (S/P/Bld) [Vol rate/Area] 100 mL/min/{1.73_m2} Normal >60 [facility] Comment on above: Result Comment: mL/m in/1.73m2 CKD-EPI Creatinine Equation (2020) Performed By: #### L 499.0042 #### [facility] [address] [place], [address] Globulin (S) [Mass/Vol] 3.1 g/dL Normal 2.2-4.2 [facility] Comment on above: Performed By: #### L 499.0042 #### [facility] [address] [place], [address] Glucose [Mass/Vol] 102 mg/dL High 70-99 [facility] Comment on above: Performed By: #### L 499.0042 #### [facility] [address] [place], [address] Potassium [Moles/Vol] 3.9 mmol/L Normal 3.3-5.1 [facility] Comment on above: Performed By: #### L 499.0042 #### [facility] [address] [place], [address] Sodium [Moles/Vol] 139 mmol/L Normal 133-145 [facility] Comment on above: Performed By: #### L 499.0042 #### [facility] [address] [place], [place], [address] T PROT 7.4 g/dL Normal 5.9-8.4 [facility] Comment on above: Performed By: #### L 499.0042 #### [facility] [address] [place], [place], [address] Urea nitrogen [Mass/Vol] 12 mg/dL Normal 4-19 [facility] Comment on above: Performed By: #### L 499.0042 #### [facility] [address] [place], [place], [address] Absolute lymphocyte countOrd ered By: Samantha Leung on 02-16-2025 Lymphocytes Auto (Unsp spec) [#/Vol] 1.34 10*3/uL 0.83-4.51 [facility] Absolute neutrophil countOrd ered By: Samantha Leung on 02-16-2025 Neutrophils (Bld) [#/Vol] 2.7 10*3/uL 2.0-7.7 [facility] Automated lymphocyte count a s percentage of total leukocytesOrdered By: Samantha Leung on 02-16-2025 Lymphocytes/100 WBC Auto (Unsp spec) 27.9 % 19-41 [facility] Basic Metabolic Profile (BMP )on 02-16-2025 BUN/CRE 15.4 RATIO Normal 10-20 [facility] Comment on above: Performed By: #### L 499.0042 #### [facility] [address] [place], [address] Calcium [Mass/Vol] 9.1 mg/dL Normal 7.6-11.0 [facility] Comment on above: Performed By: #### L 499.0042 #### [facility] [address] [place], [address] Chloride [Moles/Vol] 99 mmol/L Normal 98-108 [facility] Comment on above: Performed By: #### L 499.0042 #### [facility] [address] [place], [address] CO2 [Moles/Vol] 25.4 mmol/L Normal 21.0-32.0 [facility] Comment on above: Performed By: #### L 499.0042 #### [facility] [address] [place], [address] Creatinine [Mass/Vol] 0.92 mg/dL Normal 0.70-1.20 [facility] Comment on above: Performed By: #### L 499.0042 #### [facility] [address] [place], [address] ECRCL 112.51 ml/min Normal 50-250 [facility] Comment on above: Performed By: #### L 499.0042 #### [facility] [address] [place], [address] GAP 12 Normal 5-15 [facility] Comment on above: Performed By: #### L 499.0042 #### [facility] [address] [place], [address] GFR/1.73 sq M.predicted among non-blacks MDRD (S/P/Bld) [Vol rate/Area] 98 mL/min/{1.73_m2} Normal >60 [facility] Comment on above: Result Comment: mL/m in/1.73m2 CKD-EPI Creatinine Equation (2020) Performed By: #### L 499.0042 #### [facility] [address] [place], [address] Glucose [Mass/Vol] 95 mg/dL Normal 70-99 [facility] Comment on above: Performed By: #### L 499.0042 #### [facility] [address] [place], [address] Potassium [Moles/Vol] 4.2 mmol/L Normal 3.3-5.1 [facility] Comment on above: Result Comment: Hemo lysis present, Results??could be affected. ?? Performed By: #### L 499.0042 #### [facility] [address] [place], [address] Sodium [Moles/Vol] 137 mmol/L Normal 133-145 [facility] Comment on above: Performed By: #### L 499.0042 #### [facility] [address] [place], [address] Urea nitrogen [Mass/Vol] 14 mg/dL Normal 4-19 [facility] Comment on above: Performed By: #### L 499.0042 #### [facility] [address] [place], [address] Basophil percentageOrdered B y: Samantha Leung on 02-16-2025 Basophils/100 WBC (Bld) 1.0 % 0-1 [facility] Bilirubin directOrdered By: Samantha Leung on 02-16-2025 Bilirubin.direct [Mass/Vol] 0.46 mg/dL High 0.00-0.30 [facility] Comment on above: Hemolysis present, R esults could be affected. CBC W/Diff, Automatedon 01-19 Absolute Lymph 1.34 X10 3/uL Normal 0.83-4.51 [facility] Comment on above: Performed By: #### L 500.3400, L501.9520, L300.3900, L100.0100, L500.2500, L501.2300, L501.5200, L500.4050 #### [facility] [address] [place], [address] Absolute Neut 2.7 X10 3/uL Normal 2.0-7.7 [facility] Comment on above: Performed By: #### L 500.3400, L501.9520, L300.3900, L100.0100, L500.2500, L501.2300, L501.5200, L500.4050 #### [facility] [address] [place], [address] Basophils/100 WBC (Bld) 1.0 % Normal 0-1 [facility] Comment on above: Performed By: #### L 500.3400, L501.9520, L300.3900, L100.0100, L500.2500, L501.2300, L501.5200, L500.4050 #### [facility] [address] [place], [address] Eosinophils/100 WBC (Bld) 3.5 % Normal 0-5 [facility] Comment on above: Performed By: #### L 500.3400, L501.9520, L300.3900, L100.0100, L500.2500, L501.2300, L501.5200, L500.4050 #### [facility] [address] [place], [address] Erythrocyte distribution width (RBC) [Ratio] 12.1 % Normal 11.6-14.6 [facility] Comment on above: Performed By: #### L 500.3400, L501.9520, L300.3900, L100.0100, L500.2500, L501.2300, L501.5200, L500.4050 #### [facility] [address] [place], [address] Hematocrit (Bld) [Volume fraction] 41.7 % Normal 40-54 [facility] Comment on above: Performed By: #### L 500.3400, L501.9520, L300.3900, L100.0100, L500.2500, L501.2300, L501.5200, L500.4050 #### [facility] [address] [place], [address] Hemoglobin (Bld) [Mass/Vol] 14.3 g/dL Normal 13.0-16.5 [facility] Comment on above: Performed By: #### L 500.3400, L501.9520, L300.3900, L100.0100, L500.2500, L501.2300, L501.5200, L500.4050 #### [facility] [address] [place], [address] IG% 0.200 Normal 0.0-0.9 [facility] Comment on above: Result Comment: IG% - Immature Granulocytes (promyelocytes, myelocytes and metamyelocytes) > 1% indicates that a LEFT SHIFT is Present. Performed By: #### L 500.3400, L501.9520, L300.3900, L100.0100, L500.2500, L501.2300, L501.5200, L500.4050 #### [facility] [address] [place], [address] Lymphocytes/100 WBC (Bld) 27.9 % Normal 19-41 [facility] Comment on above: Performed By: #### L 500.3400, L501.9520, L300.3900, L100.0100, L500.2500, L501.2300, L501.5200, L500.4050 #### [facility] [address] [place], [address] MCH (RBC) [Entitic mass] 31.0 pg Normal 27.0-32.0 [facility] Comment on above: Performed By: #### L 500.3400, L501.9520, L300.3900, L100.0100, L500.2500, L501.2300, L501.5200, L500.4050 #### [facility] [address] [place], [address] MCHC (RBC) [Mass/Vol] 34.3 g/dL Normal 32-36 [facility] Comment on above: Performed By: #### L 500.3400, L501.9520, L300.3900, L100.0100, L500.2500, L501.2300, L501.5200, L500.4050 #### [facility] [address] [place], [address] MCV (RBC) [Entitic vol] 90.5 fL Normal 80-94 [facility] Comment on above: Performed By: #### L 500.3400, L501.9520, L300.3900, L100.0100, L500.2500, L501.2300, L501.5200, L500.4050 #### [facility] [address] [place], [address] Monocytes/100 WBC (Bld) 10.4 % High 0-10 [facility] Comment on above: Performed By: #### L 500.3400, L501.9520, L300.3900, L100.0100, L500.2500, L501.2300, L501.5200, L500.4050 #### [facility] [address] [facility], [address] Neutrophils/100 WBC (Bld) 57.0 % Normal 47-70 [facility] Comment on above: Performed By: #### L 500.3400, L501.9520, L300.3900, L100.0100, L500.2500, L501.2300, L501.5200, L500.4050 #### [facility] [address] [place], [address] Nucleated RBC (Bld) [#/Vol] 0 10*3/uL Normal 0-5 [facility] Comment on above: Performed By: #### L 500.3400, L501.9520, L300.3900, L100.0100, L500.2500, L501.2300, L501.5200, L500.4050 #### [facility] [address] [place], [address] Platelet mean volume (Bld) [Entitic vol] 9.4 fL Normal 6.2-12.0 [facility] Comment on above: Performed By: #### L 500.3400, L501.9520, L300.3900, L100.0100, L500.2500, L501.2300, L501.5200, L500.4050 #### [facility] [address] [place], [address] Platelets (Bld) [#/Vol] 189 10*3/uL Normal 150-450 [facility] Comment on above: Performed By: #### L 500.3400, L501.9520, L300.3900, L100.0100, L500.2500, L501.2300, L501.5200, L500.4050 #### [facility] [address] [place], [address] RBC (Bld) [#/Vol] 4.61 10*6/uL Normal 4.6-6.2 [facility] Comment on above: Performed By: #### L 500.3400, L501.9520, L300.3900, L100.0100, L500.2500, L501.2300, L501.5200, L500.4050 #### [facility] [address] [place], [address] RDW SD 40.1 fl Normal 35.1-43.9 [facility] Comment on above: Performed By: #### L 500.3400, L501.9520, L300.3900, L100.0100, L500.2500, L501.2300, L501.5200, L500.4050 #### [facility] [address] [place], [address] WBC (Bld) [#/Vol] 4.8 10*3/uL Normal 4.4-11.0 [facility] Comment on above: Performed By: #### L 500.3400, L501.9520, L300.3900, L100.0100, L500.2500, L501.2300, L501.5200, L500.4050 #### [facility] [address] [place], [place], [id number] Comprehensive Metabolic Prof ilon 02-16-2025 Albumin/Globulin [Mass ratio] 1.4 {ratio} Normal 0.9-2.4 [facility] Comment on above: Performed By: #### L 499.0042 #### [facility] [address] [place], [place], [id number] Eosinophil percentageOrdered By: Samantha Leung on 02-16-2025 Eosinophils/100 WBC (Bld) 3.5 % 0-5 [facility] Erythrocyte distribution wid th ratioOrdered By: Samantha Leung on 02-16-2025 Erythrocyte distribution width (RBC) [Ratio] 12.1 % 11.6-14.6 [facility] Erythrocyte distribution wid th standard deviationOrdered By: Samantha Leung on 02-16-2025 Erythrocyte distribution width (RBC) [Ratio] 40.1 fl 35.1-43.9 [facility] Hematocrit Auto (Bld) [Volum e fraction]Ordered By: Samantha Leung on 02-16-2025 Hematocrit (Bld) [Volume fraction] 41.7 % 40-54 [facility] Hemoglobin measurementOrdere d By: Samantha Leung on 02-16-2025 Hemoglobin (Bld) [Mass/Vol] 14.3 g/dL 13.0-16.5 [facility] Immature granulocytes/100 WB C Auto (Bld)Ordered By: Samantha Leung on 02-16-2025 Immature granulocytes/100 WBC (Bld) 0.200 % 0.0-0.9 [facility] Comment on above: IG% - Immature Granu locytes (promyelocytes, myelocytes and metamyelocytes) > 1% indicates that a LEFT SHIFT is Present. International normalized rat io (INR) calculationOrdered By: Samantha Leung on 02-16-2025 INR Coag (Bld) [Relative time] 1.1 {INR} [facility] Liver Profileon 02-16-2025 Albumin [Mass/Vol] 4.1 g/dL Normal 3.5-5.0 [facility] Comment on above: Performed By: #### L 499.0042 #### [facility] [address] [place], [address] ALK PHOS 107 U/L Normal 40-129 [facility] Comment on above: Performed By: #### L 499.0042 #### [facility] [address] [place], [address] ALT [Catalytic activity/Vol] 101 U/L High <=46 [facility] Comment on above: Performed By: #### L 499.0042 #### [facility] [address] [place], [address] AST [Catalytic activity/Vol] 133 U/L High <=37 [facility] Comment on above: Result Comment: Hemo lysis present, Results??could be affected. ?? Performed By: #### L 499.0042 #### [facility] [address] [place], [address] Bilirubin [Mass/Vol] 1.43 mg/dL High 0.00-1.30 [facility] Comment on above: Performed By: #### L 499.0042 #### [facility] [address] [place], [address] Bilirubin.direct [Mass/Vol] 0.46 mg/dL High 0.00-0.30 [facility] Comment on above: Result Comment: Hemo lysis present, Results??could be affected. ?? Performed By: #### L 499.0042 #### [facility] [address] [place], [address] Globulin (S) [Mass/Vol] 3.0 g/dL Normal 2.2-4.2 [facility] Comment on above: Performed By: #### L 499.0042 #### [facility] [address] [place], [address] T PROT 7.1 g/dL Normal 5.9-8.4 [facility] Comment on above: Performed By: #### L 499.0042 #### [facility] [address] [place], [address] MCV (mean corpuscular volume ) determinationOrdered By: Samantha Leung on 02-16-2025 MCV (RBC) [Entitic vol] 90.5 fL 80-94 [facility] Magnesiumon 02-16-2025 Magnesium [Mass/Vol] 2.2 mg/dL Normal 1.5-2.2 [facility] Comment on above: Performed By: #### L 500.3400, L501.9520, L300.3900, L100.0100, L500.2500, L501.2300, L501.5200, L500.4050 #### [facility] [address] [facility] [address] [place], [place], [id number] Magnesium measurement (mass/ volume)Ordered By: Samantha Leung on 02-16-2025 Magnesium (Unsp spec) [Mass/Vol] 2.2 mg/dL 1.5-2.2 [facility] Mean corpuscular hemoglobin (MCH) determinationOrdered By: Samantha Leung on 02-16-2025 MCH (RBC) [Entitic mass] 31.0 pg 27.0-32.0 [facility] Mean corpuscular hemoglobin concentration (MCHC) determinationOrdered By: Samantha Leung on 02-16-2025 MCHC (RBC) [Mass/Vol] 34.3 g/dL 32-36 [facility] Mean platelet volume determi nationOrdered By: Samantha Leung on 02-16-2025 Platelet mean volume (Bld) [Entitic vol] 9.4 fL 6.2-12.0 [facility] Monocyte percentageOrdered B y: Samantha Leung on 02-16-2025 Monocytes/100 WBC (Bld) 10.4 % High 0-10 [facility] Neutrophil percentageOrdered By: Samantha Leung on 02-16-2025 Neutrophils/100 WBC (Bld) 57.0 % 47-70 [facility] Nucleated red blood cell per centageOrdered By: Samantha Leung on 02-16-2025 Nucleated RBC/100 WBC (Bld) [Ratio] 0 % 0-5 [facility] Phosphoruson 02-16-2025 Phosphate [Mass/Vol] 3.7 mg/dL Normal 2.7-4.5 [facility] Comment on above: Performed By: #### L 500.3400, L501.9520, L300.3900, L100.0100, L500.2500, L501.2300, L501.5200, L500.4050 #### [facility] [address] [place], [place], [id number] ([phone] Platelet countOrdered By: Bobby Leung on 02-16-2025 Platelets (Bld) [#/Vol] 189 10*3/uL 150-450 [facility] Prothrombin Time w/INRon INR Coag (PPP) [Relative time] 1.1 {INR} Normal [facility] Comment on above: Performed By: #### L 499.0042 #### [facility] [address] [place], [place], [phone] [phone] PT Coag (PPP) [Time] 14.4 s Normal 11.7-14.9 [facility] Comment on above: Performed By: #### L 499.0042 #### [facility] [address] [place], [address] Prothrombin timeOrdered By: Samantha Leung on 02-16-2025 PT Coag (PPP) [Time] 14.4 s 11.7-14.9 [facility] RBC Auto (Bld) [#/Vol]Ordere d By: Samantha Leung on 02-16-2025 RBC (Bld) [#/Vol] 4.61 10*6/uL 4.6-6.2 [facility] TSH DL <= 0.005 mIU/L QnOrde red By: Samantha Leung on 02-16-2025 TSH Qn 3.250 uIU/mL 0.300-4.200 [facility] Thyroid Stim Hormone (TSH)on 02-16-2025 TSH 3.250 uIU/mL Normal 0.300-4.200 [facility] Comment on above: Performed By: #### L 499.0042 #### [facility] [address] [facility] [place], [place], [id number] White blood cell (WBC) count Ordered By: Samantha Leung on 02-16-2025 WBC (Bld) [#/Vol] 4.8 10*3/uL 4.4-11.0 [facility] 12 Lead EKGon 02-15-2025 12 Lead EKG [facility] [address] [place] [address] 12 Lead EKG 02/15/25 1556 MR#: [id number] Acct: [id number] Name: SLOAN HARVEY Rep #: [id number] : 1970 55 From: Blas Bergman MD Attending Dr: Dr. Tammy Cespedes MD Status: AD M IN Ordering Dr: Kris Wood DO Date: 02/15/25 Location: [facility] Sex: M C Admitted: 02/15/25 Test Reason [...] QT Abnormal ECG Confirmed by Blas Bergman ([id number]), technical editor REGINA UGALDE ([id number]) on 02/18/2025 10:49:48 AM Referred By: Kris Wood Confirmed By: Blas Bergman 02/18/25 1049 Date Blas Bergman MD CC: Dr. Peggy Nicole DO; Dr. Tammy Cespedes MD; Dr. Kris Wood DO Signed Normal [facility] Absolute lymphocyte countOrd ered By: Kris Wood on 02-15-2025 Lymphocytes Auto (Unsp spec) [#/Vol] 1.64 10*3/uL 0.83-4.51 [facility] Absolute neutrophil countOrd ered By: Kris Wood on 02-15-2025 Neutrophils (Bld) [#/Vol] 4.6 10*3/uL 2.0-7.7 [facility] Alcohol, Blood (Medical)-Ser umon 02-15-2025 SERUM ETOH 97.6 mg/dL High <=10.0 [facility] Comment on above: Result Comment: This test is for medical purposes only. The legal definition of intoxication varies according to local law. Performed By: #### L 100.0100, L501.9100, L505.5000 #### [facility] [address] [place], [address] Amphetamine detection with 1 000 ng/mL as cutoffOrdered By: Kris Wood on 02-15-2025 Amphetamines Screen method >1000 ng/mL Ql (U) Negative < 200 ng/mL [facility] Anion gap in Serum or Plasma Ordered By: Kris Wood on 02-15-2025 Anion gap [Moles/Vol] 18 mmol/L High 5-15 [facility] Automated lymphocyte count a s percentage of total leukocytesOrdered By: Kris Wood on 02-15-2025 Lymphocytes/100 WBC Auto (Unsp spec) 23.7 % 19-41 [facility] BUN/creatinine ratioOrdered By: Kris Wood on 02-15-2025 Urea nitrogen/Creatinine [Mass ratio] 14.6 mg/mg 10-20 [facility] Basophil percentageOrdered B y: Remus Wood on 02-15-2025 Basophils/100 WBC (Bld) 1.0 % 0-1 [facility] Bilirubin, totalOrdered By: Kris Wood on 02-15-2025 Bilirubin [Mass/Vol] 1.02 mg/dL 0.00-1.30 [facility] CBC W/Diff, Automatedon 01-19 Absolute Lymph 1.64 X10 3/uL Normal 0.83-4.51 [facility] Comment on above: Performed By: #### L 100.0100, L501.9100, L505.5000 #### [facility] [address] [place], [address] Absolute Neut 4.6 X10 3/uL Normal 2.0-7.7 [facility] Comment on above: Performed By: #### L 100.0100, L501.9100, L505.5000 #### [facility] [address] [place], [address] Basophils/100 WBC (Bld) 1.0 % Normal 0-1 [facility] Comment on above: Performed By: #### L 100.0100, L501.9100, L505.5000 #### [facility] [address] [place], [address] Eosinophils/100 WBC (Bld) 1.9 % Normal 0-5 [facility] Comment on above: Performed By: #### L 100.0100, L501.9100, L505.5000 #### [facility] [address] [place], [address] Erythrocyte distribution width (RBC) [Ratio] 12.1 % Normal 11.6-14.6 [facility] Comment on above: Performed By: #### L 100.0100, L501.9100, L505.5000 #### [facility] [address] [place], [address] Hematocrit (Bld) [Volume fraction] 42.9 % Normal 40-54 [facility] Comment on above: Performed By: #### L 100.0100, L501.9100, L505.5000 #### [facility] [address] [place], [address] Hemoglobin (Bld) [Mass/Vol] 14.8 g/dL Normal 13.0-16.5 [facility] Comment on above: Performed By: #### L 100.0100, L501.9100, L505.5000 #### [facility] [address] [place], [address] IG% 0.300 Normal 0.0-0.9 [facility] Comment on above: Result Comment: IG% - Immature Granulocytes (promyelocytes, myelocytes and metamyelocytes) > 1% indicates that a LEFT SHIFT is Present. Performed By: #### L 100.0100, L501.9100, L505.5000 #### [facility] [address] [place], [address] Lymphocytes/100 WBC (Bld) 23.7 % Normal 19-41 [facility] Comment on above: Performed By: #### L 100.0100, L501.9100, L505.5000 #### [facility] [address] [place], [address] MCH (RBC) [Entitic mass] 30.7 pg Normal 27.0-32.0 [facility] Comment on above: Performed By: #### L 100.0100, L501.9100, L505.5000 #### [facility] [address] [place], [address] MCHC (RBC) [Mass/Vol] 34.5 g/dL Normal 32-36 [facility] Comment on above: Performed By: #### L 100.0100, L501.9100, L505.5000 #### [facility] [address] [place], [address] MCV (RBC) [Entitic vol] 89.0 fL Normal 80-94 [facility] Comment on above: Performed By: #### L 100.0100, L501.9100, L505.5000 #### [facility] [address] [place], [address] Monocytes/100 WBC (Bld) 6.9 % Normal 0-10 [facility] Comment on above: Performed By: #### L 100.0100, L501.9100, L505.5000 #### [facility] [address] [place], [address] Neutrophils/100 WBC (Bld) 66.2 % Normal 47-70 [facility] Comment on above: Performed By: #### L 100.0100, L501.9100, L505.5000 #### [facility] [address] [place], [address] Nucleated RBC (Bld) [#/Vol] 0 10*3/uL Normal 0-5 [facility] Comment on above: Performed By: #### L 100.0100, L501.9100, L505.5000 #### [facility] [address] [place], [address] Platelet mean volume (Bld) [Entitic vol] 9.1 fL Normal 6.2-12.0 [facility] Comment on above: Performed By: #### L 100.0100, L501.9100, L505.5000 #### [facility] [address] [place], [address] Platelets (Bld) [#/Vol] 216 10*3/uL Normal 150-450 [facility] Comment on above: Performed By: #### L 100.0100, L501.9100, L505.5000 #### [facility] [address] [place], [address] RBC (Bld) [#/Vol] 4.82 10*6/uL Normal 4.6-6.2 [facility] Comment on above: Performed By: #### L 100.0100, L501.9100, L505.5000 #### [facility] [address] [place], [address] RDW SD 40.0 fl Normal 35.1-43.9 [facility] Comment on above: Performed By: #### L 100.0100, L501.9100, L505.5000 #### [facility] [address] [place], [address] WBC (Bld) [#/Vol] 6.9 10*3/uL Normal 4.4-11.0 [facility] Comment on above: Performed By: #### L 100.0100, L501.9100, L505.5000 #### [facility] [address] [place], [address] Carbon dioxide, total [Moles /volume] in Central venous bloodOrdered By: Kris Wood on 02-15-2025 CO2 [Moles/Vol] 20.7 mmol/L Low 21.0-32.0 [facility] Chloride assayOrdered By: Radha Wood on 02-15-2025 Chloride [Moles/Vol] 96 mmol/L Low 98-108 [facility] Comprehensive Metabolic Prof ilon 02-15-2025 Albumin [Mass/Vol] 4.5 g/dL Normal 3.5-5.0 [facility] Comment on above: Performed By: #### L 500.4050 #### [facility] [address] [place], [address] Albumin/Globulin [Mass ratio] 1.4 {ratio} Normal 0.9-2.4 [facility] Comment on above: Performed By: #### L 500.4050 #### [facility] [address] [place], [address] ALK PHOS 112 U/L Normal 40-129 [facility] Comment on above: Performed By: #### L 500.4050 #### [facility] [address] [place], [address] ALT [Catalytic activity/Vol] 115 U/L High <=46 [facility] Comment on above: Performed By: #### L 500.4050 #### [facility] [address] [place], [address] AST [Catalytic activity/Vol] 153 U/L High <=37 [facility] Comment on above: Performed By: #### L 500.4050 #### [facility] [address] [place], [address] Bilirubin [Mass/Vol] 1.02 mg/dL Normal 0.00-1.30 [facility] Comment on above: Performed By: #### L 500.4050 #### [facility] [address] [place], [address] BUN/CRE 14.6 RATIO Normal 10-20 [facility] Comment on above: Performed By: #### L 500.4050 #### [facility] [address] [place], [address] Calcium [Mass/Vol] 9.3 mg/dL Normal 7.6-11.0 [facility] Comment on above: Performed By: #### L 500.4050 #### [facility] [address] [place], [address] Chloride [Moles/Vol] 96 mmol/L Low 98-108 [facility] Comment on above: Performed By: #### L 500.4050 #### [facility] [address] [place], [address] CO2 [Moles/Vol] 20.7 mmol/L Low 21.0-32.0 [facility] Comment on above: Performed By: #### L 500.4050 #### [facility] [address] [place], [address] Creatinine [Mass/Vol] 1.19 mg/dL Normal 0.70-1.20 [facility] Comment on above: Performed By: #### L 500.4050 #### [facility] [address] [place], [address] ECRCL 87.20 ml/min Normal 50-250 [facility] Comment on above: Performed By: #### L 500.4050 #### [facility] [address] [place], [address] GAP 18 High 5-15 [facility] Comment on above: Performed By: #### L 500.4050 #### [facility] [address] [place], [address] GFR/1.73 sq M.predicted among non-blacks MDRD (S/P/Bld) [Vol rate/Area] 72 mL/min/{1.73_m2} Normal >60 [facility] Comment on above: Result Comment: mL/m in/1.73m2 CKD-EPI Creatinine Equation (2020) Performed By: #### L 500.4050 #### [facility] [address] [place], [address] Globulin (S) [Mass/Vol] 3.2 g/dL Normal 2.2-4.2 [facility] Comment on above: Performed By: #### L 500.4050 #### [facility] [address] [place], [address] Glucose [Mass/Vol] 142 mg/dL High 70-99 [facility] Comment on above: Performed By: #### L 500.4050 #### [facility] [address] [place], [address] Potassium [Moles/Vol] 3.3 mmol/L Normal 3.3-5.1 [facility] Comment on above: Performed By: #### L 500.4050 #### [facility] [address] [place], [address] Sodium [Moles/Vol] 135 mmol/L Normal 133-145 [facility] Comment on above: Performed By: #### L 500.4050 #### [facility] [address] [place], [address] T PROT 7.8 g/dL Normal 5.9-8.4 [facility] Comment on above: Performed By: #### L 500.4050 #### [facility] [address] [place], [place], [address] Urea nitrogen [Mass/Vol] 17 mg/dL Normal 4-19 [facility] Comment on above: Performed By: #### L 500.4050 #### [facility] [address] [place], [place], [address] Emergency Department Summary on 02-15-2025 Emergency Department Summary [facility] Medical Records Department [address] [place] [address] Emergency Department Summary 02/15/25 MR#: [id number] Acct: [id number] Name: SLOAN HARVEY Rep #: [id number] : 1970 55 From: Kris Wood DO PCP: Dr. Peggy Nicole DO Status:ADM IN Location: [place] [address] HPI History of Present Illness Chief Complaint: [...] has no stenting. He does smoke cigarettes. [facility] Medical History Anxiety Depression Hypertension Home Medications [...] Effort an (more content not included)... Normal [facility] Eosinophil percentageOrdered By: Kris Wood on 02-15-2025 Eosinophils/100 WBC (Bld) 1.9 % 0-5 [facility] Erythrocyte distribution wid th ratioOrdered By: Kris Wood on 02-15-2025 Erythrocyte distribution width (RBC) [Ratio] 12.1 % 11.6-14.6 [facility] Erythrocyte distribution wid th standard deviationOrdered By: Kris Wood on 02-15-2025 Erythrocyte distribution width (RBC) [Ratio] 40.0 fl 35.1-43.9 [facility] Glomerular filtration rate ( GFR) estimation/1.73 sq m using serum, plasma, or whole bOrdered By: Kris Wood on 02-15-2025 GFR/1.73 sq M.predicted among non-blacks MDRD (S/P/Bld) [Vol rate/Area] 72 mL/min/{1.73_m2} >60 [facility] Comment on above: mL/min/1.73m2 CKD-EP I Creatinine Equation (2020) H AND P Exam - [facility] 02-15-2025 H&P Exam - Hospitalist [facility] Medical Records Department [address] [place] [address] H P Exam - Hospitalist 02/15/25 1742 MR#: [id number] Acct: [id number] Name: SLOAN HARVEY Rep #: [id number] : 1970 55 From: Samantha Leung MD [...] no other drug use. Previously admitted to [facility] for detoxification about 14 months back, [...] Temporal Pulse (more content not included)... Normal [facility] Hematocrit Auto (Bld) [Volum e fraction]Ordered By: Kris Wood on 02-15-2025 Hematocrit (Bld) [Volume fraction] 42.9 % 40-54 [facility] Hemoglobin measurementOrdere d By: Kris Wood on 02-15-2025 Hemoglobin (Bld) [Mass/Vol] 14.8 g/dL 13.0-16.5 [facility] Immature granulocytes/100 WB C Auto (Bld)Ordered By: Kris Wood on 02-15-2025 Immature granulocytes/100 WBC (Bld) 0.300 % 0.0-0.9 [facility] Comment on above: IG% - Immature Granu locytes (promyelocytes, myelocytes and metamyelocytes) > 1% indicates that a LEFT SHIFT is Present. L499.0042on 02-15-2025 Trop T High Sen 14 ng/L Normal <=22 [facility] Comment on above: Performed By: #### L 499.0042 #### [facility] [address], [address] L499.0043on 02-15-2025 Trop T High Sen 14 ng/L Normal <=22 [facility] Comment on above: Performed By: #### L 499.0043 #### [facility] [address] [place], [address] L501.4021on 02-15-2025 Trop T High Sen 15 ng/L Normal <=22 [facility] Comment on above: Performed By: #### L 100.0100, L501.9100, L505.5000 #### [facility] [address] [place], [address] Laboratory - Chemistry and C hemistry - challengeOrdered By: Kris Wood on 02-15-2025 AST [Catalytic activity/Vol] 153 U/L High <38 [facility] MCV (mean corpuscular volume ) determinationOrdered By: Kris Wood on 02-15-2025 MCV (RBC) [Entitic vol] 89.0 fL 80-94 [facility] Mean corpuscular hemoglobin (MCH) determinationOrdered By: Kris Wood on 02-15-2025 MCH (RBC) [Entitic mass] 30.7 pg 27.0-32.0 [facility] Mean corpuscular hemoglobin concentration (MCHC) determinationOrdered By: Kris Wood on 02-15-2025 MCHC (RBC) [Mass/Vol] 34.5 g/dL 32-36 [facility] Mean platelet volume determi nationOrdered By: Kris Wood on 02-15-2025 Platelet mean volume (Bld) [Entitic vol] 9.1 fL 6.2-12.0 [facility] Monocyte percentageOrdered B y: Kris Wood on 02-15-2025 Monocytes/100 WBC (Bld) 6.9 % 0-10 [facility] Neutrophil percentageOrdered By: Kris Wood on 02-15-2025 Neutrophils/100 WBC (Bld) 66.2 % 47-70 [facility] No Panel InformationOrdered By: Kris Wood on 02-15-2025 Urine Buprenorphine Qualitative Negative < 200 ng/mL [facility] Urine Oxycodone Screen Negative < 100 ng/mL [facility] Nucleated red blood cell per centageOrdered By: Kris Wood on 02-15-2025 Nucleated RBC/100 WBC (Bld) [Ratio] 0 % 0-5 [facility] Platelet countOrdered By: Radha Wood on 02-15-2025 Platelets (Bld) [#/Vol] 216 10*3/uL 150-450 [facility] Potassium measurement (mass/ volume)Ordered By: Kris Wood on 02-15-2025 Potassium (Unsp spec) [Mass/Vol] 3.3 mmol/L 3.3-5.1 [facility] Prothrombin Time w/INRon INR Coag (PPP) [Relative time] 1.1 {INR} Normal [facility] Comment on above: Performed By: #### L 300.3900 #### [facility] [address] [place], [place], [id number] PT Coag (PPP) [Time] 14.6 s Normal 11.7-14.9 [facility] Comment on above: Performed By: #### L 300.3900 #### [facility] [address] [place], [place], [id number] Quantitative urine opiates m easurementOrdered By: Kris Wood on 02-15-2025 Opiates Ql (U) Negative < 300 ng/mL [facility] RBC Auto (Bld) [#/Vol]Ordere d By: Kris Wood on 02-15-2025 RBC (Bld) [#/Vol] 4.82 10*6/uL 4.6-6.2 [facility] Screening urine fentanyl angela surementOrdered By: Kris Wood on 02-15-2025 fentaNYL Screen Ql (U) Negative [facility] Serum creatinine measurement (mass/volume)Ordered By: Kris Wood on 02-15-2025 Creatinine [Mass/Vol] 1.19 mg/dL 0.70-1.20 [facility] Serum globulin measurementOr dered By: Kris Wood on 02-15-2025 Globulin (S) [Mass/Vol] 3.2 g/dL 2.2-4.2 [facility] Serum glucose measurement (m ass/volume)Ordered By: Remus Israel on 02-15-2025 Glucose [Mass/Vol] 142 mg/dL High 70-99 [facility] Serum or plasma alanine davidson otransferase (ALT) measurementOrdered By: Remus Ungur on 02-15-2025 ALT [Catalytic activity/Vol] 115 U/L High <47 [facility] Serum or plasma albumin che urement (mass/volume)Ordered By: Remus Ungur on 02-15-2025 Albumin [Mass/Vol] 4.5 g/dL 3.5-5.0 [facility] Serum or plasma albumin/glob ulin mass ratioOrdered By: Remus Ungdelicia on 02-15-2025 Albumin/Globulin [Mass ratio] 1.4 {ratio} 0.9-2.4 [facility] Serum or plasma alkaline salma sphatase measurementOrdered By: Remus Ungdelicia on 02-15-2025 ALP [Catalytic activity/Vol] 112 U/L 40-129 [facility] Serum or plasma calcium che urement (mass/volume)Ordered By: Remus Ungdelicia on 02-15-2025 Calcium [Mass/Vol] 9.3 mg/dL 7.6-11.0 [facility] Serum or plasma ethanol che urement (mass/volume)Ordered By: Remus Ungdelicia on 02-15-2025 Ethanol [Mass/Vol] 97.6 mg/dL High <10.1 [facility] Comment on above: This test is for med ical purposes only. The legal definition of intoxication varies according to local law. Serum or plasma urea nitroge n measurement (mass/volume)Ordered By: Remus Wood on 02-15-2025 Urea nitrogen [Mass/Vol] 17 mg/dL 4-19 [facility] Sodium levelOrdered By: Remu s Israel on 02-15-2025 Sodium [Moles/Vol] 135 mmol/L 133-145 [facility] Total proteinOrdered By: Rem us Ungdelicia on 02-15-2025 Protein [Mass/Vol] 7.8 g/dL 5.9-8.4 [facility] Troponin T.cardiac [Mass/vol ume] in Serum or Plasma by High sensitivity methodOrdered By: Remus Ungdelicia on 02-15-2025 Troponin T.cardiac High sensitivity method [Mass/Vol] 14 ng/L <22 [facility] Troponin T.cardiac High sensitivity method [Mass/Vol] 14 ng/L <22 [facility] Troponin T.cardiac High sensitivity method [Mass/Vol] 15 ng/L <22 [facility] Urine Drug Screen (VISTA)on 02-15-2025 AMPHETAMINES Negative Normal <1000 ng/mL [facility] Comment on above: Order Comment: UNK Performed By: #### L 100.0100, L501.9100, L505.5000 #### [facility] [address] [facility] [address] BARBITIURATES Negative Normal < 200 ng/mL [facility] Comment on above: Order Comment: UNK Performed By: #### L 100.0100, L501.9100, L505.5000 #### [facility] [address] [facility] [address] BENZODIAZIPINE Negative Normal < 200 ng/mL [facility] Comment on above: Order Comment: UNK Performed By: #### L 100.0100, L501.9100, L505.5000 #### [facility] [address] [place], [address] BUP Ur Drug Scr Negative Normal < 200 ng/mL [facility] Comment on above: Order Comment: UNK Performed By: #### L 100.0100, L501.9100, L505.5000 #### [facility] [address] [place], [address] COCAINE Negative Normal < 300 ng/mL [facility] Comment on above: Order Comment: UNK Performed By: #### L 100.0100, L501.9100, L505.5000 #### [facility] [address] [place], [address] Fentanyl Negative Normal [facility] Comment on above: Order Comment: UNK Performed By: #### L 100.0100, L501.9100, L505.5000 #### [facility] [address] [place], [address] METHADONE Negative Normal < 300 ng/mL [facility] Comment on above: Order Comment: UNK Performed By: #### L 100.0100, L501.9100, L505.5000 #### [facility] [address] [place], [address] OPIATES Negative Normal < 300 ng/mL [facility] Comment on above: Order Comment: UNK Performed By: #### L 100.0100, L501.9100, L505.5000 #### [facility] [address] [place], [address] OXYCODONE Negative Normal < 100 ng/mL [facility] Comment on above: Order Comment: UNK Performed By: #### L 100.0100, L501.9100, L505.5000 #### [facility] [address] [place], [address] PCP Negative Normal < 25 ng/mL [facility] Comment on above: Order Comment: UNK Performed By: #### L 100.0100, L501.9100, L505.5000 #### [facility] [address] [place], [address] THC Negative Normal < 50 ng/mL [facility] Comment on above: Order Comment: UNK Performed By: #### L 100.0100, L501.9100, L505.5000 #### [facility] [address] [place], [address] Urine benzodiazepine levelOr dered By: Remus Israel on 02-15-2025 Benzodiazepines Ql (U) Negative < 200 ng/mL [facility] Urine cocaine levelOrdered B y: Remus Ungur on 02-15-2025 Cocaine Ql (U) Negative < 300 ng/mL [facility] Urine mzyge-[id number]-[id number] abinol (THC) measurementOrdered By: Remus Castanonur on 02-15-2025 Cannabinoids Screen Ql (U) Negative < 50 ng/mL [facility] Urine phencyclidine (PCP) de tectionOrdered By: Kris Wood on 02-15-2025 Phencyclidine Ql (U) Negative < 25 ng/mL [facility] White blood cell (WBC) count Ordered By: Belinda Israel on 02-15-2025 WBC (Bld) [#/Vol] 6.9 10*3/uL 4.4-11.0 [facility] CNOVon 07-26-2024 CNOV Office Visit ([facility] ) -- SLOAN HARVEY ([id number]) 1970 [facility] Date Time Provider Department 07/26/24 7:15 PM DIANA ROBERTSON [facility] [place] During your visit today, we recorded the following information about you: Temperature Pulse Respiration Blood pressure 97 degrees 64/minute 18/minute 113/75 Weight 108.7 kg Diana Robertson APRN.FIELD LOGISTICS COORDINATOR 07/26/2024 7:49 PM Signed Subjective patient complains of dental pain on the left lower jaw. Patient says has been a couple weeks. Patient says it just started getting worse over the last couple days. Patient denies any fever chills nausea vomiting shortness of breath or chest pain. The history is provided by the patient. 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 Dental Problem Review of Systems [...] History of alcoholism (HCC) SVT (supraventricular tachycardia) ([facility]) s/p ablation TIA (transient ischemic [...] agreeable to this care plan. Diana Robertson APRN.FIELD LOGISTICS COORDINATOR Allergies As of Date: 07/26/2024 (No Known [...] Status:Closed by DIANA ROBERTSON on 07/26/24 Normal [facility] Office Visit Reporton 2023 Office Visit Report [facility] [address] [place] [address] OFFICE VISIT Date of Service: 06/27/24 MR#: [id number] Acct: [id number] Patient: SLOAN HARVEY Rep #: [id number] : 1970 Provider: ROSA Rosenthal Age/Sex: 54/M Location: [facility] Status: Signed Intake Vital Signs 12/17/23 17:02 [...] Roman Signature: Date (if applicable) [facility] ) -- SLOAN HARVEY ([id number]) 1970 [facility] Date Time Provider Department 01/16/24 3:00 PM KWADWO SPIVEY [facility] [place] During your visit today, we recorded the following information about you: Temperature Pulse Respiration Blood pressure 97.6 degrees 81/minute 18/minute 124/87 Weight 110 kg Kwadwo Spivey APRN.FIELD LOGISTICS COORDINATOR 01/16/2024 3:37 PM Signed This note was [...] Date Reviewed: 01/16/2024 Reviewed by: Kwadwo Spivey APRN.FIELD LOGISTICS COORDINATOR - Fully Assessed Reason for Visit: Ear [...] Status:Closed by KWADWO SPIVEY on 01/16/24 Normal [facility] Absolute lymphocyte countOrd ered By: Lucretia Hunter on 12-17-2023 Lymphocytes Auto (Unsp spec) [#/Vol] 1.65 10*3/uL 0.83-4.51 [facility] Automated lymphocyte count a s percentage of total leukocytesOrdered By: Lucretia Hunter on 12-17-2023 Lymphocytes/100 WBC Auto (Unsp spec) 25.3 % 19-41 [facility] Basophil percentageOrdered B y: Lucretia Hunter on 12-17-2023 Basophils/100 WBC (Bld) 0.9 % 0-1 [facility] Bilirubin [Mass/Vol] 0.50 mg/dL 0.20-1.00 [facility] Comment on above: For patients on eltr ombopag therapy, use of Dimension [place] TBIL is not recommended. Chloride [Moles/Vol] 108 mmol/L 98-107 [facility] Eosinophils/100 WBC (Bld) 2.5 % 0-5 [facility] Glucose [Mass/Vol] 80 mg/dL 74-106 [facility] Hemoglobin (Bld) [Mass/Vol] 14.9 g/dL 13.0-16.5 [facility] Monocytes/100 WBC (Bld) 9.2 % 0-10 [facility] Neutrophils (Bld) [#/Vol] 4.0 10*3/uL 2.0-7.7 [facility] Neutrophils/100 WBC (Bld) 61.8 % 47-70 [facility] Potassium [Moles/Vol] 4.1 mmol/L 3.5-5.1 [facility] Protein [Mass/Vol] 7.5 g/dL 6.4-8.2 [facility] Sodium [Moles/Vol] 140 mmol/L 136-145 [facility] WBC (Bld) [#/Vol] 6.5 10*3/uL 4.4-11.0 [facility] Determination of erythrocyte mean corpuscular volume (MCV)Ordered By: Lucretia Hunter on 12-17-2023 MCV (RBC) [Entitic vol] 90.8 fL 80-94 [facility] Erythrocyte distribution wid th ratioOrdered By: Lucretia Hunter on 12-17-2023 Erythrocyte distribution width (RBC) [Ratio] 15.1 % 11.6-14.6 [facility] Erythrocyte distribution wid th standard deviationOrdered By: Lucretia Hunter on 12-17-2023 Erythrocyte distribution width (RBC) [Entitic vol] 49.9 fL 35.1-43.9 [facility] Hematocrit Auto (Bld) [Volum e fraction]Ordered By: Lucretia Hunter on 12-17-2023 Hematocrit (Bld) [Volume fraction] 44.5 % 40-54 [facility] Immature granulocytes/100 WB C Auto (Bld)Ordered By: Lucretia Hunter on 12-17-2023 Immature granulocytes/100 WBC (Bld) 0.300 % 0.0-0.9 [facility] Comment on above: IG% - Immature Granu locytes (promyelocytes, myelocytes and metamyelocytes) > 1% indicates that a LEFT SHIFT is Present. Laboratory - Chemistry and C hemistry - challengeOrdered By: Lucretia Hunter on 12-17-2023 Albumin/Globulin [Mass ratio] 0.8 {ratio} 0.9-2.4 [facility] ALP [Catalytic activity/Vol] 121 U/L 45-117 [facility] ALT [Catalytic activity/Vol] 89 U/L 16-61 [facility] CO2 [Moles/Vol] 25.0 mmol/L 21.0-32.0 [facility] Globulin (S) [Mass/Vol] 4.1 g/dL 2.2-4.2 [facility] Urea nitrogen/Creatinine [Mass ratio] 13.8 mg/mg 10-20 [facility] Laboratory - Drug toxicology Ordered By: Lucretia Hunter on 12-17-2023 Amphetamines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 [facility] Creatinine [Mass/Vol] 1.17 mg/dL Normal 0.73-1.22 [facility] Comment on above: Order Comment: Speci men Type: BLOOD SPECIMENOrdering Facility: [facility] Address: [address] [address] Performed By: #### 2 4331-, ####[facility]ATORYCLIA [id number] [address] Creatinine and Glomerular filtration rate.predicted panel (S/P/Bld) 74 mL/min/1.73m??? Normal >=60 [facility] Comment on above: Order Comment: Speci men Type: BLOOD SPECIMENOrdering Facility: [facility] Address: [address] [place] [address] Result Comment: Miguelina mated Glomerular Filtration Rate [...] actual GFR. Performed By: #### 2 4331-1, 98592-3 ####[facility]ATORYCLIA [id number] [address] [place] Glucose [Mass/Vol] 105 mg/dL High 74-99 [facility] Comment on above: Order Comment: Speci men Type: BLOOD SPECIMENOrdering Facility: [facility] Address: [address] [place] [address] Result Comment: The [place] Diabetes Association (ADA) provides guidance for cutoff [...] Standards of Medical Care in Diabetes 2016, [place] Diabetes Association. Diabetes Care. 2016.39(Suppl 1). Performed By: #### 2 4331-1, 85939-5 ####[facility]ATORYCLIA [id number] [place] [address] [place] Potassium [Moles/Vol] 4.1 mmol/L Normal 3.7-5.1 [facility] Comment on above: Order Comment: Astrid men Type: BLOOD SPECIMENOrdering Facility: [facility] Address: [address] [place] [address] Performed By: #### 2 4331-, ####[facility]ATORYCLIA [id number] [place] [address] [place] Protein [Mass/Vol] 6.4 g/dL Normal 6.3-8.0 [facility] Comment on above: Order Comment: Speci men Type: BLOOD SPECIMENOrdering Facility: [facility] Address: [address] [place] [address] Performed By: #### 2 433-, ####[facility]ATORYCLIA [id number] [place] [address] [place] Sodium [Moles/Vol] 136 mmol/L Normal 136-144 [facility] Comment on above: Order Comment: Speci men Type: BLOOD SPECIMENOrdering Facility: [facility] Address: [address] [address] Performed By: #### 2 4331-1, 56927-1 ####[facility]ATORYCLIA [id number] [address] Urea nitrogen [Mass/Vol] 7 mg/dL Low 9-24 [facility] Comment on above: Order Comment: Speci men Type: BLOOD SPECIMENOrdering Facility: [facility] Address: [address] [place] [address] Performed By: #### 2 4331-1, 44483-6 ####[facility]ATORYCLIA [id number] [address] HbA1c (Bld)on 05-16-2023 Average glucose Estimated from glycated hemoglobin (Bld) [Mass/Vol] 105 mg/dL Normal [facility] Comment on above: Order Comment: Speci men Type: BLOOD SPECIMEN [facility] Address: [address] [place] [address] Result Comment: eAG: (Estimated average glucose) is a calculated value from HgbA1c and 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 Performed By: #### 5 5454-3 #### [facility] CLIA [id number] [address] [place] [address] HbA1c (Bld) [Mass fraction] 5.3 % Normal 4.3-5.6 [facility] Comment on above: Order Comment: Speci men Type: BLOOD SPECIMEN Ordering Facility: [facility] Address: [address] [place] [address] Result Comment: Amer ican Diabetes Association guidelines indicate that patients with HgbA1c in the range 5.7-6.4% are at increased risk for development of diabetes, and intervention by lifestyle modification may be beneficial. HgbA1c greater or equal to 6.5% is considered diagnostic of diabetes. Performed By: #### 5 5454-3 #### [facility] CLIA [id number] [address] Lipid 1996 panelon 08-28-202 3 Cholesterol [Mass/Vol] 197 mg/dL Normal <200 [facility] Comment on above: Order Comment: Dianajustin pérez Type: BLOOD SPECIMENOrdering Facility: [facility] Address: [address] [place] [address] Result Comment: <200 mg/dL, Desirable 200-239 mg/dL, Borderline high >239 mg/dL, High Performed By: #### 2 4331-1, 44547-4 ####[facility] [id number] [address] Cholesterol in HDL [Mass/Vol] 49 mg/dL Normal >39 [facility] Comment on above: Order Comment: Astrid elisa Type: BLOOD SPECIMENOrdering Facility: [facility] Address: [address] [place] [address] Result Comment: 40-5 9 mg/dL, Acceptable >59 mg/dL, High: Negative risk factor for coronary heart disease <40 mg/dL, Low: Positive risk factor for coronary heart disease Performed By: #### 2 4331-1, 26660-3 ####[facility] [id number] [address] Cholesterol in LDL [Mass/Vol] 121 mg/dL High <100 [facility] Comment on above: Order Comment: Dianajustin pérez Type: BLOOD SPECIMENOrdering Facility: [facility] Address: [address] [place] [address] Result Comment: <100 mg/dL, Optimal 100-129 mg/dL, Near optimal/above optimal 130-159 mg/dL, Borderline high 160-189 mg/dL, High >189 mg/dL, Very high Secondary prevention optimal LDL Cholesterol levels are recommended to be < 70 mg/dL Performed By: #### 2 4331-1, 59318-1 ####[facility] [id number] [address] [place] Cholesterol in LDL/Cholesterol in HDL [Mass ratio] 2.47 {ratio} Normal <2.54 [facility] Comment on above: Order Comment: Dianai men Type: BLOOD SPECIMENOrdering Facility: [facility] Address: [address] [place] [address] Result Comment: Ольга solorzano: 1. National Cholesterol Education Program ATP III Guideline At-A-Glance Quick Desk Reference: National Heart, Lung, and Blood [place]. National Institutes of Health. 2001: NIH Publication No. 01-3305. 2. An International Atherosclerosis Society position paper: global recommendations for the management of dyslipidemia: executive summary, Atherosclerosis. 2014: 232(2):410-413. Performed By: #### 2 4331-1, 13187-8 ####[facility] [id number] [address] [place] Cholesterol in VLDL [Mass/Vol] 27 mg/dL Normal <30 [facility] Comment on above: Order Comment: Speci men Type: BLOOD SPECIMENOrdering Facility: [facility] Address: [address] [place] [address] Performed By: #### 2 4331-1, 55310-2 ####[facility] [id number] [address] [place] Cholesterol non HDL [Mass/Vol] 148 mg/dL High <130 [facility] Comment on above: Order Comment: Speci men Type: BLOOD SPECIMENOrdering Facility: [facility] Address: [address] [place] [address] Result Comment: <130 mg/dL, Optimal 130-159 mg/dL, Near optimal/above optimal 160-189 mg/dL, Borderline high 190-219 mg/dL, High >219 mg/dL, Very high Secondary prevention optimal non HDL Cholesterol levels are recommended to be <100 mg/dL Performed By: #### 2 4331-1, 85383-2 ####[facility]IA [id number] [address] [place] Cholesterol.total/Cho lesterol in HDL [Mass ratio] 4.02 {ratio} Normal <5.10 [facility] Comment on above: Order Comment: Speci men Type: BLOOD SPECIMENOrdering Facility: [facility] Address: [address] [place] [address] Performed By: #### 2 4331-1, 33738-4 ####[facility]ORY[facility]IA [id number] [address] FASTING TIME 12 hrs Normal [facility] Comment on above: Order Comment: Speci men Type: BLOOD SPECIMENOrdering Facility: [facility] Address: [address] [place] [address] Performed By: #### 2 4331-1, 83626-5 ####[facility]ORYCLIA [id number] [address] Triglyceride [Mass/Vol] 134 mg/dL Normal <150 [facility] Comment on above: Order Comment: Speci men Type: BLOOD SPECIMENOrdering Facility: [facility] Address: [address] [place] [address] Result Comment: <150 mg/dL, Normal 150-199 mg/dL, Borderline high 200-499 mg/dL, High >499 mg/dL, Very high Performed By: #### 2 4331-1, 84851-2 ####[facility] [id number] [address] CNPYashira 02-21-2023 CNPN Telephone ([facility]) -- SLOAN HARVEY ([id number]) 1970 M Date Time Provider Department 02/21/23 DAE MARI [facility] During your visit today, we recorded the following information about you: Regina Figueroa MA 02/21/2023 2:09 PM Signed The referral placed for February 21, 2023 has been submitted via the [facility] Internal Referral Request form on the [facility] Appointment Portal. Confirmation # [id number] KATRIN Perez MA 02/24/2023 12:01 PM Signed [id number] ref 02/21/23 09:05 SLOAN HARVEY 1970 PMOORE2 02/21/23 09:28 to [facility] ENT KATHARINE 02/21/23 09:36 02/22/23 Patient scheduled 07/11/2023 Yolanda ([facility]) Darrius Velasoc Scheduled 02/23/23 08:55 Allergies As of Date: 02/21/2023 (Not on File) Date Reviewed: 02/16/2023 Reviewed by: Dae Mari APRN.CNP - Fully Assessed Reason for Visit: Consult [502] Cmt: ENT #[id number] Prescriptions as of 02/24/2023 - DULoxetine (CYMBALTA) [...] Encounter Status:Closed by REGINA FIGUEROA on 02/21/23 [facility] CNManny 02-16-2023 CNOV Office Visit ([facility]) -- SLOAN HARVEY ([id number]) 1970 M Date Time Provider Department 02/16/23 3:40 PM DAE MARI AGSLANDEN During your visit today, we recorded the following information about you: Pulse Respiration Blood pressure Weight 75/minute 18/minute 133/91 105.7 kg Height 1.778 m Dae Mari APRN.CNP 02/16/2023 4:31 PM Signed [facility] [address] [place] [address] Date of Evaluation: 02/16/2023 Patient Name: Sloan [...] ENT. 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 Discussed the above with the patient using shared decision making. The (more content not included)... Normal [facility] XR ANKLE LEFT 3+ VIEWS (ALLEGRA [...] the base of the 5th metatarsal bone. [employer] Workstation ID: [id number] Dictated by: ELISA BOWMAN on TueOct 09, 2021 4:06:36 PM EST Transcribed by: MYRANDA FERMIN on TueOct 09, 2021 4:09:40 PM EST Finalized by: ELISA BOWMAN on TueOct 09, 2021 4:59:[address] [facility] Comment on above: Order Comment: Injur y/Trauma [...] the base of the 5th metatarsal bone. [employer] Workstation ID: [id number] Dictated by: ELISA BOWMAN on TueOct 09, 2021 4:06:17 PM EST Transcribed by: MYRANDA FERMIN on TueOct 09, 2021 4:10:17 PM EST Finalized by: ELISA BOWMAN on TueOct 09, 2021 4:59:[address] [facility] Comment on above: Order Comment: Injur y/Trauma or Illness?:Injury/Trauma How long have you had these symptoms (acute/chronic)?:Acute Reason for exam?:pain History of cancer?:no Surgeries, chemotherapy, or radiation?:no Type of Exam?:Initial Mechanism of injury?:fall Basic metabolic panel aka Ch em 8on 12-22-2020 Calcium [Mass/Vol] 9.7 mg/dL 8.4 - 10. 4 mg/dL [facility] Chloride [Moles/Vol] 104 mmol/L 96 - 10 9 mmol/L [facility] CO2 [Moles/Vol] 24 mmol/L 22 - 30 mmol/L [facility] Comprehensive metabolic 2000 panel 0.86 mg/dL 0.66 - 1.25 mg/dL [facility] Glucose [Mass/Vol] 100 mg/dL 65 - 100 mg/dL [facility] Potassium [Moles/Vol] 3.6 mmol/L 3.6 - 5.1 mmol/L [facility] Sodium [Moles/Vol] 139 mmol/L 135 - 147 mmol/L [facility] Urea nitrogen [Mass/Vol] 12 mg/dL 8 - 26 mg/dL [facility] CBC WITH DIFFERENTIALon ABSOLUTE BASO 0.1 10 3/uL Normal 0.0-0.1 [facility] Comment on above: Performed By: #### 4 [id number] #### [place] [id number] ABSOLUTE EOSIN 0.2 10 3/uL Normal 0.1-0.3 [facility] Comment on above: Performed By: #### 4 [id number] #### [place] [address] ABSOLUTE LYMPH 1.4 10 3/uL Normal 1.2-3.3 [facility] Comment on above: Performed By: #### 4 [id number] #### [place] [address] ABSOLUTE MONO 0.7 10 3/uL High 0.2-0.6 [facility] Comment on above: Performed By: #### 4 [id number] #### [place] [address] ABSOLUTE NEUT 7.2 10 3/uL High 2.4-6.6 [facility] Comment on above: Performed By: #### 4 [id number] #### [place] [address] Basophils/100 WBC (Bld) 0.5 % Normal [facility] Comment on above: Performed By: #### 4 [id number] #### [place] [address] Eosinophils/100 WBC (Bld) 1.7 % Normal [facility] Comment on above: Performed By: #### 4 [id number] #### [place] [address] Erythrocyte distribution width (RBC) [Ratio] 12.5 % Normal 11.5-14.5 [facility] Comment on above: Performed By: #### 4 [id number] #### [place] [address] Hematocrit (Bld) [Volume fraction] 48.3 % Normal 37.7-51.1 [facility] Comment on above: Performed By: #### 4 [id number] #### [place] [address] Hemoglobin (Bld) [Mass/Vol] 16.4 g/dL Normal 12.8-17.7 [facility] Comment on above: Performed By: #### 4 [id number] #### [place] [address] Lymphocytes/100 WBC (Bld) 14.4 % Normal [facility] Comment on above: Performed By: #### 4 [id number] #### [place] [address] MCH (RBC) [Entitic mass] 32.5 pg Normal 27.0-34.2 [facility] Comment on above: Performed By: #### 4 [id number] #### [place] [address] MCHC (RBC) [Mass/Vol] 34.0 g/dL Normal 31.4-36.2 [facility] Comment on above: Performed By: #### 4 [id number] #### [place] [address] MCV (RBC) [Entitic vol] 95.8 fL Normal 80.6-99.0 [facility] Comment on above: Performed By: #### 4 [id number] #### [place] [address] Monocytes/100 WBC (Bld) 7.0 % Normal [facility] Comment on above: Performed By: #### 4 [id number] #### [address] [place] [address] Neutrophils/100 WBC (Bld) 76.4 % Normal [facility] Comment on above: Performed By: #### 4 [id number] #### [place] [address] PLATELET 248.0 x10 3/uL Normal 150.0-400.0 [facility] Comment on above: Performed By: #### 4 [id number] #### [place] [address] RBC 5.04 x10 6/uL Normal 3.70-5.70 [facility] Comment on above: Performed By: #### 4 [id number] #### [place] [address] WBC 9.5 x10 3/uL Normal 4.3-10.3 [facility] Comment on above: Performed By: #### 4 [id number] #### [place] [address] CBC with Differentialon [facility] [place] 0.7 High [facility] Basophils (Bld) [#/Vol] 0.1 10*3/uL [facility] Basophils/100 WBC (Bld) 0.5 % [facility] Eosinophils (Bld) [#/Vol] 0.2 10*3/uL [facility] Eosinophils/100 WBC (Bld) 1.7 % [facility] Erythrocyte distribution width (RBC) [Ratio] 12.5 % 11.5 - 14.5 % [facility] Hematocrit (Bld) [Volume fraction] 48.3 % 37.7 - 51.1 % [facility] Hemoglobin (Bld) [Mass/Vol] 16.4 g/dL 12.8 - 17.7 g/dL [facility] Interpretation and review of laboratory results Abnormal [facility] Lymphocytes (Bld) [#/Vol] 1.4 10*3/uL [facility] Lymphocytes/100 WBC (Bld) 14.4 % [facility] MCH (RBC) [Entitic mass] 32.5 pg 27 - 34.2 pg [facility] MCHC (RBC) [Mass/Vol] 34.0 g/dL 31.4 - 36.2 g/dl [facility] MCV (RBC) [Entitic vol] 95.8 fL 80.6 - 99 fL [facility] Monocytes/100 WBC (Bld) 7.0 % [facility] Neutrophils (Bld) [#/Vol] 7.2 10*3/uL High [facility] Neutrophils/100 WBC (Bld) 76.4 % [facility] Platelets (Bld) [#/Vol] 248.0 10*3/uL [facility] RBC (Bld) [#/Vol] 5.04 10*6/uL [facility] WBC LM Ql (Sput) 9.5 [facility] CHEM 8on 12-22-2020 Calcium [Mass/Vol] 9.7 mg/dL Normal 8.4-10.4 [facility] Comment on above: Performed By: #### 4 [id number] #### [place] [address] Glucose [Mass/Vol] 100 mg/dL Normal 65-100 [facility] Comment on above: Performed By: #### 4 [id number] #### [place] [id number] Urea nitrogen [Mass/Vol] 12 mg/dL Normal 8-26 [facility] Comment on above: Performed By: #### 4 [id number] #### [place] [address] CO2 [Moles/Vol] 24 mmol/L Normal 22-30 [facility] Comment on above: Performed By: #### 4 [id number] #### [place] [address] Creatinine [Mass/Vol] 0.86 mg/dL Normal 0.66-1.25 [facility] Comment on above: Performed By: #### 4 [id number] #### [place] [address] Chloride [Moles/Vol] 104 mmol/L Normal 96-109 [facility] Comment on above: Performed By: #### 4 [id number] #### [address] [address] Potassium [Moles/Vol] 3.6 mmol/L Normal 3.6-5.1 [facility] Comment on above: Performed By: #### 4 [id number] #### [place] [address] Sodium [Moles/Vol] 139 mmol/L Normal 135-147 [facility] Comment on above: Performed By: #### 4 [id number] #### [place] [id number] COVID MOLECULARon 12-22-2020 SARS-CoV-2 (COVID-19) RNA SHIRLEY+probe Ql (Unsp spec) Negative Normal NEGATIVE [facility] Comment on above: Result Comment: [...] or revoked sooner. 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 ETHANOL-SERUMon 12-22-2020 ETHANOL-SERUM <10 Normal NOT DETECTED [facility] Comment on above: Performed By: #### 4 [id number] #### [place] [address] Ethanolon 12-22-2020 Ethanol Ql (U) <10 NOT DETECTED mg/dL [facility] GFRon 12-22-2020 GFR >60 Normal [facility] Comment on above: Result Comment: To e [...] Suppl.2013;3:1-150 Performed By: #### G FR1 #### [address] [place] [address] GLOMERULAR FILTRATION RATEon 12-22-2020 GFR/1.73 sq M.predicted MDRD (S/P/Bld) [Vol rate/Area] mL/min/{1.73_m2} 1calendar [facility] Comment on above: To estimate the GFR [...] for CKD Kidney Int Suppl.2013;3:1-150 Otheron 12-22-2020 [facility] SARS-COV-2 Rapid Molecular T eston 12-22-2020 SARS-COV-2 Rapid Molecular Test Negative NEGATIVE [facility] Comment on above: Negative results jim uld [...] not be used on asymptomatic patients. The [employer] COVID-19 EUA has not been [...] the authorization is terminated or revoked sooner. [employer] Toxicology screen, urineon 0 12-22-2020 Amphetamines Screen method >1000 ng/mL Ql (U) NOT DETECTED CUTOFF <1000 ng/mL 1calendar [facility] Barbiturates Screen method >200 ng/mL Ql (U) NOT DETECTED CUTOFF <200 ng/mL [facility] Benzodiazepines Ql (U) NOT DETECTED CUTOFF <200 ng/mL [facility] Benzoylecgonine Screen (U) [Mass/Vol] NOT DETECTED CUTOFF <300 ng/mL [facility] [email or web address] Cannabinoids Screen method >50 ng/mL Ql (U) Positive Abnormal CUTOFF <50 ng/mL [facility] Fentanyl NOT DETECTED CUTOFF 1.0 ng/mL 1calendar System Interpretation and review of laboratory results Abnormal [facility] Opiates Screen (U) [Mass/Vol] NOT DETECTED CUTOFF <300 ng/mL [facility] Phencyclidine (U) [Mass/Vol] NOT DETECTED CUTOFF <25 ng/mL [facility] Tox Message see below [facility] Comment on above: Notes: 1. SCREENING RESULTS SHOULD BE CONSIDERED PRESUMPTIVE UNLESS THE PRESENCE OF THE ANALYTE HAS BEEN CONFIRMED BY A REFERENCE LAB. 2. ALL DRUG GROUPS ARE ANALYZED ON URINE. [facility] UR DRUG SCREEN-7 PANELon Opiates Ql (U) Not detected Normal CUTOFF <300 [facility] Comment on above: Performed By: #### 4 [id number] #### [place] [address] PCP Not detected Normal CUTOFF <25 [facility] Comment on above: Performed By: #### 4 [id number] #### [place] [address] COCAINE/BE Not detected Normal CUTOFF <300 [facility] Comment on above: Performed By: #### 4 [id number] #### [place] [address] BENZODIAZEPINE Not detected Normal CUTOFF <200 [facility] Comment on above: Performed By: #### 4 [id number] #### [place] [address] MARIJUANA/THC Positive Abnormal CUTOFF <50 [facility] Comment on above: Performed By: #### 4 [id number] #### [place] [address] BARBITURATE Not detected Normal CUTOFF <200 [facility] Comment on above: Performed By: #### 4 [id number] #### [place] [address] AMPHETAMINES/METH Not detected Normal CUTOFF <1000 [facility] Comment on above: Performed By: #### 4 [id number] #### [place] [address] FENTANYL Not detected Normal CUTOFF 1.0 [facility] Comment on above: Performed By: #### 4 [id number] #### [place] [address] TOX MESSAGE see below Normal [facility] Comment on above: Result Comment: Note s: 1. SCREENING RESULTS SHOULD BE CONSIDERED PRESUMPTIVE UNLESS THE PRESENCE OF THE ANALYTE HAS BEEN CONFIRMED BY A REFERENCE LAB. 2. ALL DRUG GROUPS ARE ANALYZED ON URINE. Performed By: #### 4 [id number] #### [place] [address] URINALYSIS W/REFLEXon 2020 Appearance (U) Cloudy Normal [facility] Comment on above: Performed By: #### 4 [id number] #### [place] [address] Bacteria identified Cx Nom (U) NOT INDICATED [facility] Comment on above: Performed By: #### 4 [id number] #### [place] [address] Bilirubin Ql (U) Negative Normal Negative [facility] Comment on above: Performed By: #### 4 [id number] #### [place] [address] Color (U) Candice Normal [facility] Comment on above: Performed By: #### 4 [id number] #### [place] [address] Glucose Ql (U) Negative Normal Negative [facility] Comment on above: Performed By: #### 4 [id number] #### [place] [address] HYALINE CAST 2 /LPF Normal [facility] Comment on above: Performed By: #### 4 [id number] #### [place] [address] Ketones Ql (U) 20 mg/dL Abnormal Negative [facility] Comment on above: Performed By: #### 4 [id number] #### [place] [address] LEUKOESTERASE Negative Normal Negative [facility] Comment on above: Performed By: #### 4 [id number] #### [place] [address] MUCOUS-URINE Many Normal [facility] Comment on above: Performed By: #### 4 [id number] #### [place] [address] Nitrite Ql (U) Negative Normal Negative [facility] Comment on above: Performed By: #### 4 [id number] #### [place] [address] NON-SQUAMOUS EPI 2 /LPF Normal [facility] Comment on above: Performed By: #### 4 [id number] #### [place] [address] OCCULT BLOOD Small Abnormal Negative [facility] Comment on above: Performed By: #### 4 [id number] #### [place] [address] pH (U) 5.0 [pH] Normal [facility] Comment on above: Performed By: #### 4 [id number] #### [place] [address] Protein Ql (U) 100 mg/dL Abnormal Negative [facility] Comment on above: Performed By: #### 4 [id number] #### [place] [id number] RBC LM.HPF (Urine sed) [#/Area] 7 /[HPF] High 0-5 [facility] Comment on above: Performed By: #### 4 [id number] #### [address] [place] [address] Specific gravity (U) [Rel density] 1.027 Normal 1.003-1.029 [facility] Comment on above: Performed By: #### 4 [id number] #### [place] [address] Urobilinogen (U) [Mass/Vol] 2.0 mg/dL Normal <2.0 [facility] Comment on above: Performed By: #### 4 [id number] #### [place] [address] WBC LM.HPF (Urine sed) [#/Area] 3 /[HPF] Normal 0-5 [facility] Comment on above: Performed By: #### 4 [id number] #### [place] [address] URINE SOURCE Voided Normal [facility] Comment on above: Performed By: #### 4 [id number] #### [place] [address] Urinalysis with reflex cultu reon 12-22-2020 Appearance (U) Cloudy [facility] Bacteria identified Aer cx Nom (Unsp spec) NOT INDICATED [facility] Bilirubin Ql (U) Negative Negative [facility] Color (CSF) Candice [facility] Glucose Ql (U) Negative Negative mg/dL [facility] Hemoglobin Ql (U) 7 High [facility] Hyaline casts (Urine sed) [#/Area] 2 /[LPF] /LPF [facility] Interpretation and review of laboratory results Abnormal [facility] Ketones Ql (U) 20 mg/dL Abnormal Negative [facility] Leukoesterase Negative Negative [facility] Mucous-Urine Many /LPF [facility] Nitrite Ql (U) Negative Negative [facility] Non-Squamous EPI 2 /LPF [facility] Occult Bld Small Abnormal Negative [facility] pH (U) 5.0 [pH] [facility] Protein (U) [Mass/Vol] 100 mg/dL Abnormal Negative [facility] Specific gravity (U) [Rel density] 1.027 [facility] Urine Source Voided [facility] Urobilinogen Qn (U) 2.0 mg/dL <2.0 [facility][note 2] System WBC (U) [#/Vol] 3 /uL [facility] Basic metabolic panelon 12-0 Calcium [Mass/Vol] 9.4 mg/dL 8.4 - 10. 4 mg/dL [facility] Chloride [Moles/Vol] 105 mmol/L 96 - 10 9 mmol/L [facility] CO2 [Moles/Vol] 27 mmol/L 22 - 30 mmol/L [facility] Comprehensive metabolic 2000 panel 0.88 mg/dL 0.66 - 1.25 mg/dL [facility] Glucose [Mass/Vol] 82 mg/dL 65 - 100 mg/dL [facility] Potassium [Moles/Vol] 3.9 mmol/L 3.6 - 5.1 mmol/L [facility] Sodium [Moles/Vol] 140 mmol/L 135 - 147 mmol/L [facility] Urea nitrogen [Mass/Vol] 12 mg/dL 8 - 26 mg/dL [facility] CBC without differentialon 1 10-28-2018 Erythrocyte distribution width (RBC) [Ratio] 12.8 % 11.5 - 14.5 % [facility] Hematocrit (Bld) [Volume fraction] 44.7 % 37.7 - 51.1 % [facility] Hemoglobin (Bld) [Mass/Vol] 14.7 g/dL 12.8 - 17.7 g/dL [facility] MCH (RBC) [Entitic mass] 31.5 pg 27 - 34.2 pg [facility] MCHC (RBC) [Mass/Vol] 32.9 g/dL 31.4 - 36.2 g/dl [facility] MCV (RBC) [Entitic vol] 95.9 fL 80.6 - 99 fL [facility] Center Platelets (Bld) [#/Vol] 232.0 10*3/uL [facility] RBC (Bld) [#/Vol] 4.66 10*6/uL [facility] WBC LM Ql (Sput) 10.0 [facility] GLOMERULAR FILTRATION RATEon 08-27-2019 GFR/1.73 sq M.predicted MDRD (S/P/Bld) [Vol rate/Area] mL/min/{1.73_m2} [facility] Comment on above: To estimate the GFR [...] and Rh group Nom (Bld) O POS [facility] Blood group antibody screen.cells I+II+III Ql Negative [facility] HEPATITIS VIRAL PANELon 07-21 HAV IgM Qn (S) Nonreactive Nonreactive [facility] HCV Ab Qn (S) Nonreactive Nonreactive [facility] Hep B Core-M AB Nonreactive Nonreactive [facility] Hep B Surf AG Nonreactive Nonreactive [facility] Hepatic function panelon Albumin [Mass/Vol] 4.3 g/dL 3.5 - 5 g/dL Gene [facility] Alk Phos 97 U/L 24 - 126 U/L [facility] ALT [Catalytic activity/Vol] 22 U/L 4 - 50 U/L [facility] AST [Catalytic activity/Vol] 32 U/L 3 - 55 U/L [facility] Bilirubin [Mass/Vol] 0.6 mg/dL 0.2 - 1 .6 mg/dL [facility] Bilirubin.conjugated [Mass/Vol] 0.1 mg/dL 0 - 0.5 mg/dL [facility] Protein [Mass/Vol] 7.7 g/dL 6.3 - 8.2 g/dL [facility] Basic metabolic panel aka Ch em 8on 07-24-2019 Calcium [Mass/Vol] 9.8 mg/dL 8.4 - 10. 4 mg/dL [facility] Chloride [Moles/Vol] 108 mmol/L 96 - 10 9 mmol/L [facility] CO2 [Moles/Vol] 28 mmol/L 22 - 30 mmol/L [facility] Comprehensive metabolic 2000 panel 0.93 mg/dL 0.66 - 1.25 mg/dL [facility] Glucose [Mass/Vol] 101 mg/dL High 65 - 100 mg/dL [facility] Interpretation and review of laboratory results Abnormal [facility] Potassium [Moles/Vol] 4.3 mmol/L 3.6 - 5.1 mmol/L [facility] Sodium [Moles/Vol] 143 mmol/L 135 - 147 mmol/L [facility] Urea nitrogen [Mass/Vol] 10 mg/dL 8 - 26 mg/dL [facility] CBC with Differentialon [facility] [place] 0.6 [facility] Basophils (Bld) [#/Vol] 0.1 10*3/uL [facility] Basophils/100 WBC (Bld) 0.7 % [facility] Eosinophils (Bld) [#/Vol] 0.2 10*3/uL [facility] Eosinophils/100 WBC (Bld) 2.2 % [facility] Erythrocyte distribution width (RBC) [Ratio] 13.0 % 11.5 - 14.5 % [facility] Hematocrit (Bld) [Volume fraction] 47.4 % 37.7 - 51.1 % [facility] Hemoglobin (Bld) [Mass/Vol] 15.5 g/dL 12.8 - 17.7 g/dL [facility] Lymphocytes (Bld) [#/Vol] 1.9 10*3/uL [facility] Lymphocytes/100 WBC (Bld) 20.6 % [facility] MCH (RBC) [Entitic mass] 32.3 pg 27 - 34.2 pg [facility] MCHC (RBC) [Mass/Vol] 32.7 g/dL 31.4 - 36.2 g/dl [facility] MCV (RBC) [Entitic vol] 98.8 fL 80.6 - 99 fL [facility] Monocytes/100 WBC (Bld) 6.5 % [facility] Neutrophils (Bld) [#/Vol] 6.4 10*3/uL [facility] Neutrophils/100 WBC (Bld) 70.0 % [facility] Platelets (Bld) [#/Vol] 208.0 10*3/uL [facility] RBC (Bld) [#/Vol] 4.80 10*6/uL [facility]note 2] System WBC LM Ql (Sput) 9.1 [facility] EKG 12-LEADon 07-24-2019 Stationary ECG Study Test Date: 2019-07-24 Pat Name: SLOAN HARVEY Department: Room: Gender: Male Cardiology Manager: TR : 1970 Requested By: Order Number: Reading MD: Olayinka Zhou Measurements Intervals [place] Rate: 92 P: 28 WA: 144 QRS: 8 QRSD: 96 T: 20 QT: 339 QTc: 388 Interpretive Statements SINUS RHYTHM WITH FREQUENT SUPRAVENTRICULAR PREMATURE COMPLEXES Electronically Signed On 07-24-2019 17:52:55 EST by Olayinka Zhou [facility] GLOMERULAR FILTRATION RATEon 07-24-2019 GFR/1.73 sq M.predicted MDRD (S/P/Bld) [Vol rate/Area] mL/min/{1.73_m2} [facility] Comment on above: To estimate the GFR [...] 2.2 mg/dL 1.6 - 2 .3 mg/dL [facility] Phosphoruson 07-24-2019 Phosphate [Mass/Vol] 3.9 mg/dL 2.5 - 4 .5 mg/dL [facility] Troponin Ion 07-24-2019 Troponin I.cardiac [Mass/Vol] ng/mL 0 - 0.033 ng/mL [facility] Comment on above: NEGATIVE; No detectable troponin-I. C-reactive protein (Inflamma tory)on 07-05-2019 CRP [Mass/Vol] 12.8 mg/L High 0 - 9.9 mg/L [facility] CBC with Differentialon 06-19 [facility] [place] 0.6 [facility] Basophils (Bld) [#/Vol] 0.1 10*3/uL [facility] Basophils/100 WBC (Bld) 0.7 % [facility] Eosinophils (Bld) [#/Vol] 0.2 10*3/uL [facility] Eosinophils/100 WBC (Bld) 2.5 % [facility] Erythrocyte distribution width (RBC) [Ratio] 12.7 % 11.5 - 14.5 % [facility] Hematocrit (Bld) [Volume fraction] 44.9 % 37.7 - 51.1 % [facility] Hemoglobin (Bld) [Mass/Vol] 15.1 g/dL 12.8 - 17.7 g/dL [facility] Lymphocytes (Bld) [#/Vol] 1.5 10*3/uL [facility] Lymphocytes/100 WBC (Bld) 20.6 % [facility] MCH (RBC) [Entitic mass] 33.0 pg 27 - 34.2 pg [facility] MCHC (RBC) [Mass/Vol] 33.6 g/dL 31.4 - 36.2 g/dl [facility] MCV (RBC) [Entitic vol] 98.2 fL 80.6 - 99 fL [facility] Monocytes/100 WBC (Bld) 8.3 % [facility] Neutrophils (Bld) [#/Vol] 5.1 10*3/uL [facility] Neutrophils/100 WBC (Bld) 67.9 % [facility] Platelets (Bld) [#/Vol] 222.0 10*3/uL [facility] RBC (Bld) [#/Vol] 4.57 10*6/uL [facility] WBC LM Ql (Sput) 7.5 [facility] Comprehensive metabolic pane l aka Metaboon 07-05-2019 Albumin [Mass/Vol] 4.4 g/dL 3.5 - 5 g/dL [facility] Alk Phos 107 U/L 24 - 126 U/L [facility] ALT [Catalytic activity/Vol] 97 U/L High 4 - 50 U/L [facility] AST [Catalytic activity/Vol] 63 U/L High 3 - 55 U/L [facility] Bilirubin [Mass/Vol] 1.0 mg/dL 0.2 - 1 .6 mg/dL [facility] Calcium [Mass/Vol] 9.9 mg/dL 8.4 - 10. 4 mg/dL [facility] Chloride [Moles/Vol] 106 mmol/L 96 - 10 9 mmol/L [facility] CO2 [Moles/Vol] 26 mmol/L 22 - 30 mmol/L [facility] Comprehensive metabolic 2000 panel 0.69 mg/dL 0.66 - 1.25 mg/dL [facility] Glucose [Mass/Vol] 80 mg/dL 65 - 100 mg/dL [facility] Potassium [Moles/Vol] 4.3 mmol/L 3.6 - 5.1 mmol/L [facility] Protein [Mass/Vol] 8.1 g/dL 6.3 - 8.2 g/dL [facility] Sodium [Moles/Vol] 139 mmol/L 135 - 147 mmol/L [facility] Urea nitrogen [Mass/Vol] 7 mg/dL Low 8 - 26 mg/dL [facility] EKG 12-LEADon 07-05-2019 Stationary ECG Study Test Date: 2019-07-05 Pat Name: SLOAN HARVEY Department: Room: Gender: Male Cardiology Manager: JOSE ALEJANDRODAVIDJAMIE : 1970 Requested By: Order Number: Reading MD: Benito Au Measurements Intervals [place] Rate: 58 P: 34 WA: 140 QRS: 33 QRSD: 87 T: 30 QT: 410 QTc: 407 Interpretive Statements SINUS BRADYCARDIA Electronically Signed On 07-05-2019 16:36:46 EDT by Benito Au Hussain jaeyos [facility] Folateon 07-05-2019 Folate [Mass/Vol] 11.3 ng/mL [facility] Comment on above: Folate Reference Ran ge: >2.8 ng/mL . GLOMERULAR FILTRATION RATEon 07-05-2019 GFR/1.73 sq M.predicted MDRD (S/P/Bld) [Vol rate/Area] mL/min/{1.73_m2} [facility] Comment on above: To estimate the GFR [...] 104 U/L High 15 - 73 U/L [facility] Hemoglobin A1con 07-05-2019 HbA1c (Bld) [Mass fraction] 5.5 % 0 - 6 % [facility] Comment on above: Reference Interval f or %A1c %A1c (NGSP) Interpretation <6.0% Non-Diabetic Range >6.5% Action Suggested . Lipid panelon 07-05-2019 Cholesterol [Mass/Vol] 193 mg/dL 0 - 200 mg/dL [facility] Comment on above: CHOLESTEROL REFERENC E RANGE Desirable <200 mg/dL Borderline 200-239 mg/dL High >240 mg/dL . Cholesterol in HDL [Mass/Vol] 31.9 mg/dL Low 40 - 59.9 mg/dL [facility] Comment on above: Interpretive data fo r HDL Cholesterol states: HDL <40 mg/dL is low and constitutes a coronary disease risk factor. HDL >60 mg/dL is a negative risk factor for coronary heart disease. . Cholesterol in LDL [Mass/Vol] 137 mg/dL High 0 - 100 mg/dL [facility] Comment on above: LDL REFERENCE RANGE Optimal <100 mg/dl Near Optimal 100-129 mg/dL Borderline High 130-159 mg/dL High 160-189 mg/dL Very High >=190 mg/dL . Cholesterol in VLDL [Mass/Vol] 24 mg/dL <42 [facility] Triglyceride [Mass/Vol] 120 mg/dL 0 - 150 mg/dL [facility] Comment on above: TRIGLYCERIDE REFEREN CE RANGE Normal <150 mg/dL Borderline High 150-199 mg/dL High 200-499 mg/dL Very High >=500 mg/dL . Magnesiumon 07-05-2019 Magnesium [Mass/Vol] 2.2 mg/dL 1.6 - 2 .3 mg/dL [facility] Otheron 07-05-2019 Interpretation and review of laboratory results Abnormal [facility] Interpretation and review of laboratory results Abnormal [facility] TSHon 07-05-2019 TSH Qn 1.970 m[IU]/L [facility] Vitamin B12on 07-05-2019 Cobalamin (Vitamin B12) [Mass/Vol] 420 pg/mL 239 - 931 pg/mL [facility] Vitamin D 25 hydroxyon 07-05 25-Hydroxyvitamin D2+25-Hydroxyvitamin D3 [Mass/Vol] 32.4 ng/mL [facility] Comment on above: Reference Range: Deficiency: <20 ng/mL Insufficiency: 21-29 ng/mL Optimal Level: >=30 ng/mL Possible Toxicity: >80 ng/mL - 80 ng/mL is the lowest reported level associated with toxicity in patients without primary hyperthyroidism who have normal renal function. Ethanolon 06-20-2019 Ethanol Ql (U) <10 NOT DETECTED mg/dL [facility] Toxicology screen, urineon 1 Amphetamines Screen method >1000 ng/mL Ql (U) NOT DETECTED CUTOFF <1000 ng/mL [facility] Barbiturates Screen method >200 ng/mL Ql (U) NOT DETECTED CUTOFF <200 ng/mL [facility] Benzodiazepines Ql (U) NOT DETECTED CUTOFF <200 ng/mL [facility] Benzoylecgonine Screen (U) [Mass/Vol] NOT DETECTED CUTOFF <300 ng/mL [facility] Cannabinoids Screen method >50 ng/mL Ql (U) Positive Abnormal CUTOFF <50 ng/mL [facility] Interpretation and review of laboratory results Abnormal Hussain [facility] [employer] Opiates Screen (U) [Mass/Vol] NOT DETECTED CUTOFF <300 ng/mL [facility] Phencyclidine (U) [Mass/Vol] NOT DETECTED CUTOFF <25 ng/mL [facility] Tox Message see below [facility] Comment on above: Notes: 1. SCREENING RESULTS [...] blowout fracture with herniation of orbital fat.Workstation ID:[id number] 14 days ago headache started 15 days ago has not improved since tia Normal [facility] Edwin 06-11-2017 Alanine aminotransferase (ALT) 79 U/L Abnormal [facility] Comment on above: Performed By: #### L AB15, LAB62, [id number], [id number] ####[facility] CLIA [id number] [place] [address], [place] [address] [place]#### LAB46, LAB18 ####[facility] [id number] [address], [place] [id number] [place] [address] [facility], [place] [phone] Cinda 06-11-2017 Aspartate aminotransferase (AST) 47 U/L Abnormal [facility] Comment on above: Performed By: #### L AB15, LAB62, TIN509, IOU633 ####[facility] [id number] [address], [place] [address] [place]#### LAB46, LAB18 ####[facility] [id number] [place] [address] [facility], [place] [phone] BASIC METABOLIC PANELon 05-21 Anion gap 12 mmol/L Normal - [facility] Comment on above: Performed By: #### L AB15, LAB62, LOO435, ZES015 ####[facility] CLIA [id number] [address], [place] [address] [place]#### LAB46, LAB18 ####[facility] [id number] [place] [address] [place] [facility], [place] [phone] BUN (urea nitrogen) 20 mg/dL Abnormal 7-18 [facility] Comment on above: Performed By: #### L AB15, LAB62, XBU127, OXX434 ####[facility] [id number] [place] [address] [place]#### LAB46, LAB18 ####[facility] [id number] [place] [address] [facility], [place] [phone] Calcium 9.1 mg/dL Normal 8.5-10.1 [facility] Comment on above: Performed By: #### L AB15, LAB62, EVG764, YGE906 ####[facility] [id number] [place] [address] [place]#### LAB46, LAB18 ####[facility] [id number] [place] [address] [place] [facility], [place] [phone] Chloride 110 mmol/L Abnormal 98-107 [facility] Comment on above: Performed By: #### L AB15, LAB62, YYO930, ASO086 ####[facility] [id number] [place] [address] [place]#### LAB46, LAB18 ####[facility] [id number] [place] [address] [place]INDU [facility], [place] [phone] CO2 20 mmol/L Abnormal 21-32 [facility] Comment on above: Performed By: #### L AB15, LAB62, FBW591, VIF501 ####[facility] CLIA [id number] [place] [address] [place]#### LAB46, LAB18 ####[facility] CLIA [id number] [place] [address] [facility], [place] [phone] Creatinine 1.1 mg/dL Normal 0.60-1.3 [facility] Comment on above: Performed By: #### L AB15, LAB62, JPM979, CAU949 ####[facility] CLIA [id number] [place] [address] [place]#### LAB46, LAB18 ####[facility] [id number] [address] [address], [address] [facility], [place] [address] eGFR (black) mL/min/{1.73_m2} Normal >60 [facility] Comment on above: Result Comment: GFR is estimated using creatinine, age, gender, and race. Patient's values should be interpreted as a trend. For additional information: [email or web address] Performed By: #### L AB15, LAB62, EXG922, XRU670 ####[facility] CLIA [id number] [place] [address], [facility] [place]#### LAB46, LAB18 ####[facility] CLIA [id number] [place] [address], [facility]31 [facility], [place] [address] eGFR (non-black) mL/min/{1.73_m2} Normal >60 [facility] Comment on above: Result Comment: GFR is estimated using creatinine, age, gender, and race. Patient's values should be interpreted as a trend. For additional information: [email or web address] Performed By: #### L AB15, LAB62, EPS597, HVQ916 ####[facility] CLIA [id number] [place] [address] [place]#### LAB46, LAB18 ####[facility] CLIA [id number] [place] [address] [place]IND[place] [facility], [place] [phone] Glucose mass conc 86 mg/dL Normal 74-106 [facility] Comment on above: Performed By: #### L AB15, LAB62, SQE985, AZG149 ####[facility] CLIA [id number] [place] [address] [place]#### LAB46, LAB18 ####[facility] [id number] [place] [address] [facility], [phone] Potassium molar conc 3.7 mmol/L Normal 3.5-5.1 [facility] Comment on above: Performed By: #### L AB15, LAB62, SVO952, MHA309 ####[facility]IA [id number] [place] [address] [place]#### LAB46, LAB18 ####[facility] [id number] [place] [address] [facility], [place] [phone] Sodium 142 mmol/L Normal 136-145 [facility] Comment on above: Performed By: #### L AB15, LAB62, GPT587, CUQ741 ####[facility] [id number] [address] [address], [address]#### LAB46, LAB18 ####[facility] [id number] [address], [address] [facility] [phone] CKon 06-11-2017 CREATINE KINASE TOTAL 179 U/L Normal 39-308 [facility] Comment on above: Performed By: #### L AB15, LAB62, SUW041, LIN448 ####[facility] [id number] [address] [address], [address]#### LAB46, LAB18 ####[facility] [id number] [address], [address] AND [place] [phone] [address] [facility], [phone] CT-ANGIO HEADANDNECK W AND/O R WO CON [...] by: Dinesh Solis MD, 06/11/2017 6:38 PM [facility] CT-HYPERACUTE HEAD W/O CON S TROCLIFFORDon [...] by: Connor Flores DO, 06/11/2017 2:25 PM [facility] Consultson 06-11-2017 Consults Encounter Department : [facility] EMERGENCY DEPARTMENTConsults by Sandie Flores DO at 06/11/2017 3:32 PMAuthor: Chaka Osoriorvice: NeurologyAuthor Type: PhysicianFiled: 06/11/2017 3:52 PMDate of Service: 06/11/2017 3:32 PMStatus: AddendumEditor: Sandie Flores DO (Physician)Related Notes:Original Note by Sandie Flores DO (Physician) filed at 06/11/2017 3:48 PMNeurological Services Consult NoteBIBB MEDICAL CENTERPatient Name:Sloan Harvey : 1970Subjective:CC:47 y.o. -handed [facility]. Called back and spoke with the ER about the case twice. Reviewed therecords from [facility] everywhere no matching patients in [facility] or [facility].He is not on any [...] to update the rena.Patient was seen remotely. Correction during the examination patient's friend Collin came [...] or seizurePast Medical History:DiagnosisDate -Back pain, chronic -[id number] -SVT (supraventricular tachycardia)hx of being offered ablaton [...] Tremors--none Rapidly alternating movements: no dysdiadochokinesia b/l Ekdv-zc-Teng: no dysmetria b/l Rcytse-qf-Ainl: no dysmetria b/lGait and stance: Gait: deferredLABS:Recent [...] us.Sandie Flores DO, 06/11/2017 3:32 PM Normal [facility] DRUGS OF ABUSE URINEon 06-11 AMPHETAMINE METAB Negative Normal Negative [facility] Comment on above: Result Comment: Nega tive Performed By: #### L [id number] ####[facility] CLIA [id number] [place] [address], [address] [facility] [address] BARBITURATES Negative Normal Negative [facility] Comment on above: Result Comment: Nega tive Performed By: #### L [id number] ####[facility] CLIA [id number] [place] [address], [address] AND [place] [id number] [address] [address] CANNABINOID METAB Negative Normal Negative [facility] Comment on above: Result Comment: Nega tive Performed By: #### L [id number] ####[facility] [id number] [address] [address], [address] AND [place] [id number] [address] [address] DRUGS OF ABUSE URINE Normal [facility] Comment on above: Result Comment: Caryn amaya includes: Amphetamines, Barbiturates, Benzodiazepines, Cocaine, Opiates, THCDrug Screen Cut-off values:Amphetamines 300 ng/mlBenzodiazepines 200 ng/mlBarbiturates 200 ng/mlCocaine metabolite 300 ng/mlCannabinoids 50 ng/mlOpiates 300 ng/ml* Results are unconfirmed screening results and should only be used for medical purposes. Performed By: #### L [id number] ####[facility] CLIA [id number] [place] [address], [address] AND [place] [id number], [place] [address] OPIATE METAB Negative Normal Negative [facility] Comment on above: Result Comment: Nega tive Performed By: #### L [id number] ####[facility] [id number] [place] [address], [address] AND [facility], [phone] Urine, benzodiazepines presence Negative Normal Negative [facility] Comment on above: Result Comment: Nega tive Performed By: #### L [id number] ####[facility] CLIA [id number] [place] [address], [address] AND [facility], [address] Urine, cocaine presence Negative Normal Negative [facility] Comment on above: Result Comment: Nega tive Performed By: #### L [id number] ####[facility] [id number] [place] [address], [address] AND [facility], [place] [address] ED Provider Noteson 06-11-20 17 ED Provider Notes Encounter [facility]MENTED Provider Notes by Neela [...] MEDICAL HISTORYPast Medical History:DiagnosisDate -Back pain, chronic -[id number] -SVT (supraventricular tachycardia)hx of being offered ablaton [...] marked as taking for the [facility]ALLERG IESNo Known AllergiesPHYSICAL EXAMVITAL SIGNS: BP (!) 147/104 Pulse 89 Temp 98.8 ?F (37.1 ?C) Resp 15 Ht 6' (1.829 m) Wt(!) 242 lb (109.8 kg) SpO2 98% BMI 32.82 kg/e3[place] during ED course were reviewed and are [...] encounter of 06/11/17EKG Standard 12 leadResultValueRef RangeRR LBIKEYQA681uaJT Iisyvnnf060dmFMUA Gbygqbbf53ulYI Ixnvdzfi577gaAWe Pahxpcgz861kbKzubt Mcmh20wxP Ojmu43oyvKHL Hsbe13ewmB Wave Balv08hsuC:40 Lrhr67teaQ:40 Vofn04kqjWT Phfj971aesDBFZXJNffbf rhythmREPORTProbable left atrial enlargementInterpreting PhysStudy Date/Skck1883-64-25 14:20:21RADIOLOGY/PROCEDUR ES/LABS/MEDICATIONS ADMINISTERED:CT-ANGIO HEAD AND NECK W [...] METABOLIC PANEL - Abnormal; Notable for the following:Zzlnpbjd896 (*)98 - 107 mmol/ISdxljML498 (*)21 - 32 mmol/DEikisZUD90 (*)7 - 18 mg/dLFinalAll other components within normal limitsSERUM TOX SCREEN - Abnormal; Notable for the following:Acetaminophen Level<2 (*)10 - 30 ug/iLJtrfaWlbvgsd754 (*)<=3 mg/dLFinalAll other components within normal limitsNarrative:Salicylate Therapeutic Range: 20-25 mg/dLAcetaminophen Therapeutic Range:10.00-30.00 ug/mLETHANOL - Abnormal; Notable for the following:Tuzsvhr221 (*)<=3 mg/dLFinalAll other components within normal limitsNarrative:Results [...] limitsLIPID PANEL - Abnormal; Notable for the following:Mhfugwckyog130 (*)<=200 mg/dLFinalLDL Vhcchkysjmm246 (*)0 - 99 mg/dLFinalAll other components within [...] for glycemic control:-Goal of therapy :< 7.0% KfC9i-Ytetoz suggested: >8.0% HyB0hTH - NormalGLUCOSE POC RESULTS - NormalNarrative:Point of [...] of hospitalization, the patient choose to leave [place].Diagnosis and treatment plan were discussed in detail [...] care, and plan with those present in [facility].I have personally seen and examined this [...] 06/13/2017 11:06 Helen Horne MD06/13/17 1109 Normal [facility] EKG STANDARD 12 LEADon 06-11 Pulse (Heart Rate) RR Interval= 659 msP R Interval= 133 msQRSD Interval= 87 msQT Interval= 342 msQTc Interval= 421 msHeart Rate= 91 msP New [place]= 27 degQRS [place]= 24 degT Wave [place]= 34 degI: 40 [place]= 49 degT: 40 [place]= 21 degST [place]= 165 degSinus rhythm Probable left atrial enlargement Electronically Signed by: Justin Turner (DO) 14-Jun-2017 06:15:10 Date and Time of Study: 2017-06-11 14:20:21 Normal [facility] ETHANOLon 06-11-2017 Ethanol 248 mg/dL Abnormal <=3 [facility] Comment on above: Performed By: #### L AB15, LAB62, [id number], [id number] ####[facility] [id number] [address]#### LAB46, LAB18 ####[facility] [id number] [address], [address] AND [facility], [place] [address] Ethanol Normal [facility] Comment on above: Result Comment: Resu lts of this test should always be interpreted in conjunction with the patient's medical history, clinical presentation and other findings.The pharmacological response to blood alcohol levels may vary from individual to individual. The fatal concentration has been reported to be greater than 400 mg/dL. Performed By: #### L AB15, LAB62, [id number], [id number] ####[facility] [id number] [place] [address], [address]#### LAB46, LAB18 ####[facility] [id number] [place] [address], [address] AND [facility]avercreC[place] [address] HEMOGLOBIN A1Con 06-11-2017 Glucose mass conc 103 mg/dL Normal 68-126 [facility] Comment on above: Performed By: #### L AB90 ####[facility] [id number] [place] [address], [address] AND [facility]avercreCathy [place] [address] Hemoglobin A1c/Hemoglobin.total mass fraction (Bld) [facility] Comment on above: Result Comment: Ther apeutic goals for glycemic control:-Goal of therapy :< 7.0% OcE3h-Sndmxp suggested: >8.0% HbA1c Performed By: #### L AB90 ####[facility] [id number] [place] [address], [address] AND [facility], [place] [address] Hemoglobin A1c/Hemoglobin.total mass fraction (Bld) 5.2 % Normal 4.0-6.0 [facility] Comment on above: Performed By: #### L AB90 ####[facility] [id number] [place] [address], [facility]31 [facility] AND [phone] LACTATE/LACTIC ACIDon 2016 Lactate 2.1 mmol/L Abnormal 0.4-2.0 [facility] Comment on above: Result Comment: This result has been reviewed. Performed By: #### L [id number] ####[facility] [id number] [place] [address], [facility]31 [facility] AND [facility]Roche[address] HealthvdBe[address] LACTATE/LACTIC ACID Normal [facility] Comment on above: Result Comment: Put on ice - Place specimen on ice immediately after collection and transport to lab.Put on ice - Place specimen on ice immediately after collection and transport to lab. Performed By: #### L [id number] ####[facility] [id number] [place] [address], [facility]31 [facility] AND [facility]averBradley [place] [phone] Lactate 3.7 mmol/L Abnormal 0.4-2.0 [facility] Comment on above: Performed By: #### L [id number] ####[facility] [id number] [place] [address], [facility]31 [facility], [place] [phone] LACTATE/LACTIC ACID Normal [facility] Comment on above: Result Comment: Put on ice - Place specimen on ice immediately after collection and transport to lab. Performed By: #### L [id number] ####[facility] CLIA [id number] [place] [address], [facility]31 [facility] AND [facility], [place] [phone] LIPID PANELon 06-11-2017 Cholesterol 59 mg/dL Normal 40-60 [facility] Comment on above: Performed By: #### L AB15, LAB62, [id number], [id number] ####[facility] CLIA [id number] [place] [address] [place]#### LAB46, LAB18 ####[facility] CLIA [id number] [place] [address] [facility], [phone] Cholesterol 268 mg/dL Abnormal <=200 [facility] Comment on above: Performed By: #### L AB15, LAB62, [id number], [id number] ####[facility] CLIA [id number] [place] [address] [place]#### LAB46, LAB18 ####[facility] CLIA [id number] [place] [address] [facility], [phone] LDL Cholesterol 181 mg/dL Abnormal 0-99 [facility] Comment on above: Performed By: #### L AB15, LAB62, [id number], [id number] ####[facility] CLIA [id number] [place] [address] [place]#### LAB46, LAB18 ####[facility] [id number] [place] [address] [facility], [place] [phone] LIPID PANEL Normal [facility] Comment on above: Result Comment: ATP III Classification of LDL, Total and HDL Cholesterol (mg/dL)LDL Cholesterol: <100 Optimal 100-129 Near optimal/above optimal 130-159 Borderline high 160-189 High >=190 Very highTotal Cholesterol: <200 Desirable 200-239 Borderline high >=240 HighHDL Cholesterol: <40 Low >=60 High Performed By: #### L AB15, LAB62, MHW365, [id number] ####[facility] [id number] [place] [address] [place]#### LAB46, LAB18 ####[facility] CLIA [id number] [place] [address] [facility], [place] [phone] Triglyceride 139 mg/dL Normal 0-149 [facility] Comment on above: Performed By: #### L AB15, LAB62, [id number], [id number] ####[facility] CLIA [id number] [place] [address] [place]#### LAB46, LAB18 ####[facility] CLIA [id number] [place] [address] [facility], [place] [phone] VLDL CHOLESTEROL 28 mg/dL Normal 0-40 [facility] Comment on above: Performed By: #### L AB15, LAB62, [id number], [id number] ####[facility] [id number] [place] [address] [place]#### LAB46, LAB18 ####[facility] [id number] [place] [address] [facility] AND [facility], [place] [phone] PARTIAL THROMBOPLASTon 06-11 PARTIAL THROMBOPLASTIN TIME MECHANICAL 30.2 Seconds Normal 27.0-39.0 [facility] Comment on above: Performed By: #### L AB320 ####[facility] [id number] [place] [address], [address] AND [place] [address] [phone]#### [id number] ####[facility] [id number] [place] [address], [address] PROTIME-INRon 06-11-2017 INR Coag RelTime (Bld) Normal [facility] Comment on above: Result Comment: Cond ition and INR Therapeutic Range:Deep venous thrombosis 2.0-3.0Pulmonary embolism 2.0-3.0Acute myocardial infarction 2.0-3.0Atrial fibrillation 2.0-3.0Antiphospholipid syndrome (no other risk factors) 2.0-3.0Antiphospholipid syndrome with recurrent thromboembolism 2.5-3.0Bioprosthetic (tissue) valve 2.0-3.0Mechanical prosthetic valves 2.0-3.0 or 2.5-3.5 depending on valve type and location Performed By: #### L AB320 ####[facility] [id number] [address], [place] [id number]vdBeavercreCole [place] [phone]#### [id number] ####[facility] [id number] [place] [address], [address] INR Coag RelTime (PPP) 1.0 {INR} Normal 0.8-1.1 [facility] Comment on above: Performed By: #### L AB320 ####[facility] [id number] [place] [address], [address] AND [place] [id number] [address]vdBeavercreekMichelle [place] [phone]#### [id number] ####[facility] [id number] [place] [address] [facility] Prothrombin time (PT) Coag time (PPP) 11.4 s Normal 9.3-12.5 [facility] Comment on above: Performed By: #### L AB320 ####[facility] [id number] [place] [address] [facility], [place] [phone]#### [id number] ####[facility] CLIA [id number] [place] [address] [facility] Progress Noteson 06-11-2017 Progress Notes Encounter Department : [facility] EMERGENCY DEPARTMENTProgress Notes by Sandie Flores [...] cta head and neck given aphasia Normal [facility] SERUM TOX SCREENon 7 Acetaminophen mass conc <2 Abnormal 10 [facility] Comment on above: Performed By: #### L AB349 ####[facility] CLIA [id number] [place] [address], [facility]31 [facility], [place] [phone] Ethanol 251 mg/dL Abnormal <=3 [facility] Comment on above: Performed By: #### L AB349 ####[facility] [id number] [facility]ENTERVDBEAVERCR[facility], [address] AND [place] [id number] [facility], [phone] SALICYLATE ([facility]/IRS) 3.5 mg/dl Normal 3.0-20.0 [facility] Comment on above: Performed By: #### L AB349 ####[facility] [id number] [facility], [address] AND [place] [id number] [place] [phone] SERUM TOX SCREEN Normal [facility] Comment on above: Result Comment: Sali cylate Therapeutic Range: 20-25 mg/dLAcetaminophen Therapeutic Range:10.00-30.00 ug/mL Performed By: #### L AB349 ####[facility] [id number] [facility], [address] AND [place] [id number] [place] [phone] Vital Signs Date Time Vital Sign Value Performing Clinician Facility 02-18-2025 08:37-0400 Body temperature 97.9 [degF] Dr. Kris Wood DO Work Phone: [facility] 02-18-2025 08:37-0400 Diastolic blood pressure 91 mm[Hg] Dr. Kris Wood DO Work Phone: [facility] 02-18-2025 08:37-0400 Heart rate 77 /min Dr. Kris Wood DO Work Phone: [facility] 02-18-2025 08:37-0400 Respiratory rate 16 /min Dr. Kris Wood DO Work Phone: 6(766)728-795285 [place] [address] 02-18-2025 08:37-0400 SaO2% (BldA) [Mass fraction] 94 % Dr. Kris Wood DO Work Phone: 1(206)925-945285 [place] [address] 02-18-2025 08:37-0400 Systolic blood pressure 133 mm[Hg] Dr. Kris Wood DO Work Phone: 0(879)371-818585 [place] [address] 02-16-2025 10:56-0400 Body height 177.[address] Kris Wood DO Work Phone: 1(324)749-604305 [place] [address] 02-16-2025 10:56-0400 Body weight 112.[address] Kris Wood DO Work Phone: 0(875)432-294505 [place] [address] 02-15-2025 18:28-0400 Body mass index (BMI) [Ratio] 35.5 kg/m2 Dr. Kris Wood DO Work Phone: 0(854)956-211605 [place] [address] 02-15-2025 17:34-0400 Body temperature 98.4 [degF] Dr. Kris Wood DO Work Phone: 0(293)205-606605 [place] [address] 02-15-2025 17:34-0400 Diastolic blood pressure 78 mm[Hg] Dr. Kris Wood DO Work Phone: 0(830)042-309305 [place] [address] 02-15-2025 17:34-0400 Heart rate 78 /min Dr. Kris Wood DO Work Phone: 2(810)360-496805 [place] [address] 02-15-2025 17:34-0400 Respiratory rate 16 /min Dr. Kris Wood DO Work Phone: 9(390)175-877185 [place] [address] 02-15-2025 17:34-0400 SaO2% (BldA) [Mass fraction] 96 % Dr. Kris Wood DO Work Phone: 1(106)643-531485 [place] [address] 02-15-2025 17:34-0400 Systolic blood pressure 118 mm[Hg] Dr. Kris Wood DO Work Phone: 6(632)672-700685 [place] [address] 02-15-2025 15:33-0400 Body height 177.[address] Kris Wood DO Work Phone: [facility] 02-15-2025 15:33-0400 Body mass index (BMI) [Ratio] 35.6 kg/m2 Dr. Kris Wood DO Work Phone: [facility] 02-15-2025 15:33-0400 Body weight 112.[address] Kris Wood DO Work Phone: [facility] 07-26-2024 19:28-0500 Body mass index (BMI) [Ratio] 34.38 kg/m2 Diana Robertson APRN.FIELD LOGISTICS COORDINATOR Work Phone: [facility] 07-26-2024 19:28-0500 Body temperature 97 [degF] Diana Robertson APRN.FIELD LOGISTICS COORDINATOR Work Phone: [facility] 07-26-2024 19:28-0500 Body weight 108.7 kg Diana Robertson APRN.FIELD LOGISTICS COORDINATOR Work Phone: [facility] 07-26-2024 19:28-0500 Diastolic blood pressure 75 mm[Hg] Diana Robertson APRN.FIELD LOGISTICS COORDINATOR Work Phone: [facility] 07-26-2024 19:28-0500 Heart rate 64 /min Diana Robertson APRN.FIELD LOGISTICS COORDINATOR Work Phone: [facility] 07-26-2024 19:28-0500 Respiratory rate 18 /min Diana Robertson APRN.FIELD LOGISTICS COORDINATOR Work Phone: [facility] 07-26-2024 19:28-0500 SaO2% (BldA) [Mass fraction] 97 % Diana Robertson APRN.FIELD LOGISTICS COORDINATOR Work Phone: [facility] 07-26-2024 19:28-0500 Systolic blood pressure 113 mm[Hg] Diana Robertson APRN.FIELD LOGISTICS COORDINATOR Work Phone: [facility] 06-05-2024 08:29-0400 Body height 177.8 cm Peggy Nicole DO Work Phone: [facility] 06-05-2024 08:29-0400 Body mass index (BMI) [Ratio] 20.37 kg/m2 Peggy Bonnie DO Work Phone: [facility] 06-05-2024 08:29-0400 Body weight 64.41 kg Peggy Bonnie DO Work Phone: [facility] 04-04-2024 09:51-0400 Body height 177.8 cm Peggy Bonnie DO Work Phone: [facility] 04-04-2024 09:51-0400 Body mass index (BMI) [Ratio] 34.72 kg/m2 Peggy Bonnie DO Work Phone: [facility] 04-04-2024 09:51-0400 Body weight 109.77 kg Peggy Bonnie DO Work Phone: [facility] 01-16-2024 14:56-0400 Body mass index (BMI) [Ratio] 33.82 kg/m2 Kwadwo Moomaw LICENSED LAND SURVEYOR.FIELD LOGISTICS COORDINATOR Work Phone: [facility] 01-16-2024 14:56-0400 Body temperature 97.59 [degF] Kwadwo Moomaw LICENSED LAND SURVEYOR.FIELD LOGISTICS COORDINATOR Work Phone: [facility] 01-16-2024 14:56-0400 Body weight 110 kg Kwadwo Moomaw LICENSED LAND SURVEYOR.FIELD LOGISTICS COORDINATOR Work Phone: [facility] 01-16-2024 14:56-0400 Diastolic blood pressure 87 mm[Hg] Kwadwo Moomaw LICENSED LAND SURVEYOR.FIELD LOGISTICS COORDINATOR Work Phone: [facility] 01-16-2024 14:56-0400 Heart rate 81 /min Kwadwo Moomaw LICENSED LAND SURVEYOR.FIELD LOGISTICS COORDINATOR Work Phone: [facility] 01-16-2024 14:56-0400 Respiratory rate 18 /min Kwadwo Moomaw LICENSED LAND SURVEYOR.FIELD LOGISTICS COORDINATOR Work Phone: [facility] 01-16-2024 14:56-0400 SaO2% (BldA) [Mass fraction] 95 % Kwadwo Moomaw LICENSED LAND SURVEYOR.FIELD LOGISTICS COORDINATOR Work Phone: [facility] 01-16-2024 14:56-0400 Systolic blood pressure 124 mm[Hg] Kwadwo Spivey APRN.CNP Work Phone: [facility] 12-19-2023 10:00-0400 Body temperature 97.7 [degF] Dr. Sloan Gonzalez Work Phone: [facility] 12-19-2023 10:00-0400 Diastolic blood pressure 85 mm[Hg] Dr. Sloan Gonzalez Work Phone: [facility] 12-19-2023 10:00-0400 Heart rate 55 /min Dr. Sloan Gonzalez Work Phone: [facility] 12-19-2023 10:00-0400 Respiratory rate 14 /min Dr. Sloan Gonzalez Work Phone: [facility] 12-19-2023 10:00-0400 SaO2% (BldA) [Mass fraction] 97 % Dr. Sloan Gonzalez Work Phone: [facility] 12-19-2023 10:00-0400 Systolic blood pressure 130 mm[Hg] Dr. Sloan Gonzalez Work Phone: [facility] 12-18-2023 11:00-0400 Inhaled oxygen flow rate 96 L/min Dr. Sloan Gonzalez Work Phone: [facility] 12-17-2023 17:02-0400 Body height 180.[address] Sloan Gonzalez Work Phone: [facility] 12-17-2023 17:02-0400 Body mass index (BMI) [Ratio] 32.9 kg/m2 Dr. Sloan Gonzalez Work Phone: [facility] 12-17-2023 17:02-0400 Body weight 107.[address] Sloan Gonzalez Work Phone: [facility] 12-17-2023 16:00-0400 Body temperature 98.2 [degF] Dr. Sloan Gonzalez Work Phone: [facility] 12-17-2023 16:00-0400 Diastolic blood pressure 82 mm[Hg] Dr. Sloan Gonzalez Work Phone: [facility] 12-17-2023 16:00-0400 Heart rate 73 /min Dr. Sloan Gonzalez Work Phone: [facility] 12-17-2023 16:00-0400 Respiratory rate 18 /min Dr. Sloan Gonzalez Work Phone: [facility] 12-17-2023 16:00-0400 SaO2% (BldA) [Mass fraction] 95 % Dr. Sloan Gonzalez Work Phone: [facility] 12-17-2023 16:00-0400 Systolic blood pressure 129 mm[Hg] Dr. Sloan Gonzalez Work Phone: [facility] 12-17-2023 13:26-0400 Body height 180.[address] Sloan Gonzalez Work Phone: [facility] 12-17-2023 13:26-0400 Body mass index (BMI) [Ratio] 34 kg/m2 Dr. Sloan Gonzalez Work Phone: [facility] 12-17-2023 13:26-0400 Body weight 110.[address] Sloan Gonzalez Work Phone: [facility] 04-19-2023 12:12-0400 Body height 180.3 cm Peggy Nicole DO Work Phone: [facility] 04-19-2023 12:12-0400 Body weight 108.86 kg Peggy Bonnie DO Work Phone: [facility] 02-16-2023 16:02-0400 Body height 177.8 cm Dae Mastrucci LICENSED LAND SURVEYOR.FIELD LOGISTICS COORDINATOR Work Phone: [facility] 02-16-2023 16:02-0400 Body weight 105.69 kg Dae Mastrucci LICENSED LAND SURVEYOR.FIELD LOGISTICS COORDINATOR Work Phone: [facility] 02-16-2023 16:02-0400 Diastolic blood pressure 91 mm[Hg] Dae Mastrucci LICENSED LAND SURVEYOR.FIELD LOGISTICS COORDINATOR Work Phone: [facility] 02-16-2023 16:02-0400 Heart rate 75 /min Dae Mastrucci LICENSED LAND SURVEYOR.FIELD LOGISTICS COORDINATOR Work Phone: [facility] 02-16-2023 16:02-0400 Respiratory rate 18 /min Dae Mastrucci LICENSED LAND SURVEYOR.FIELD LOGISTICS COORDINATOR Work Phone: [facility] 02-16-2023 16:02-0400 SaO2% (BldA) [Mass fraction] 97 % Dae Mastrucci LICENSED LAND SURVEYOR.FIELD LOGISTICS COORDINATOR Work Phone: [facility] 02-16-2023 16:02-0400 Systolic blood pressure 133 mm[Hg] Dae Mastrucci LICENSED LAND SURVEYOR.FIELD LOGISTICS COORDINATOR Work Phone: [facility] 10-15-2021 09:48-0500 Body height 177.8 cm Andre Galano DPM Work Phone: [facility] 10-15-2021 09:48-0500 Body mass index (BMI) [Ratio] 34.29 kg/m2 Andre Sernaicino DPM Work Phone: [facility] 10-15-2021 09:48-0500 Body weight 108.41 kg Andre Galano DPM Work Phone: [facility] 10-14-2021 11:09-0500 Body height 177.8 cm Alda Maria MD Work Phone: [facility] 10-14-2021 11:09-0500 Body mass index (BMI) [Ratio] 34.29 kg/m2 Alda Maria MD Work Phone: [facility] 10-14-2021 11:09-0500 Body temperature 97 [degF] Alda Maria MD Work Phone: [facility] 10-14-2021 11:09-0500 Body weight 108.41 kg Alda Maria MD Work Phone: [facility] 10-14-2021 11:09-0500 Diastolic blood pressure 80 mm[Hg] Alda Maria MD Work Phone: [facility] 10-14-2021 11:09-0500 Heart rate 88 /min Alda Maria MD Work Phone: [facility] 10-14-2021 11:09-0500 Respiratory rate 18 /min Alda Maria MD Work Phone: [facility] 10-14-2021 11:09-0500 SaO2% (BldA) [Mass fraction] 94 % Alda Maria MD Work Phone: [facility] 10-14-2021 11:09-0500 Systolic blood pressure 134 mm[Hg] Alda Maria MD Work Phone: [facility] 10-01-2021 10:18-0500 Body height 177.8 cm Andre Sernaicino DPM Work Phone: [facility] 10-01-2021 10:18-0500 Body mass index (BMI) [Ratio] 34.15 kg/m2 Andre Kareemicino DPM Work Phone: [facility] 10-01-2021 10:18-0500 Body weight 107.96 kg Andre Kareemicino DPM Work Phone: [facility] 09-07-2021 17:55-0500 Body temperature 98.49 [degF] Ebunoluwa Wion DO Work Phone: [facility] 09-07-2021 17:55-0500 Body weight 107.96 kg Ebunoluwa Wion DO Work Phone: [facility] 09-07-2021 17:55-0500 Diastolic blood pressure 82 mm[Hg] Ebunoluwa Wion DO Work Phone: [facility] 09-07-2021 17:55-0500 Heart rate 83 /min Ebunoluwa Wion DO Work Phone: [facility] 09-07-2021 17:55-0500 Respiratory rate 16 /min Ebunoluwa Wion DO Work Phone: [facility] 09-07-2021 17:55-0500 SaO2% (BldA) [Mass fraction] 94 % Ebmahamed Bowleson DO Work Phone: [facility] 09-07-2021 17:55-0500 Systolic blood pressure 129 mm[Hg] Thomas Bowleson DO Work Phone: [facility] 12-22-2020 18:15-0400 Body Temperature 97.5 [degF] [facility] System 12-22-2020 18:15-0400 BP Diastolic 80 mm[Hg] [facility] 12-22-2020 18:15-0400 BP Systolic 144 mm[Hg] [facility] 12-22-2020 18:15-0400 Pulse (Heart Rate) 74 /min [facility] 12-22-2020 18:15-0400 Pulse Oximetry 95 % [facility] 12-22-2020 18:15-0400 Respiratory Rate 20 /min [facility] are System 12-22-2020 09:00-0400 BMI (Body Mass Index) 28.7 kg/m2 [facility] 12-22-2020 09:00-0400 Body weight 90.72 kg [facility] 12-22-2020 09:00-0400 Height 177.8 cm [facility] 04-27-2020 11:10-0400 BMI (Body Mass Index) 30.13 kg/m2 [facility] 04-27-2020 11:10-0400 Body Temperature 98.01 [degF] [facility] System 04-27-2020 11:10-0400 [facility] 04-27-2020 11:10-0400 BP Diastolic 87 mm[Hg] [facility] 04-27-2020 11:10-0400 BP Systolic 141 mm[Hg] [facility] 04-27-2020 11:10-0400 Height 177.8 [...] 18:03-0500 Body Temperature 98.71 [degF] [facility] 07-24-2019 18:03-0500 BP Diastolic 81 mm[Hg] [facility] 07-24-2019 18:03-0500 BP Systolic 124 mm[Hg] [facility] 07-24-2019 18:03-0500 Pulse (Heart Rate) 93 /min [facility] 07-24-2019 18:03-0500 Pulse Oximetry 96 % [facility] 07-24-2019 18:03-0500 Respiratory Rate 16 /min Olayinka Morgan [facility] 07-24-2019 16:20-0500 BMI (Body Mass Index) 29.29 kg/m2 Olayinka Abelardo [facility] 07-24-2019 16:20-0500 Body weight 95.25 kg [facility] 07-24-2019 16:20-0500 Height 180.3 cm [facility] 06-20-2019 17:42-0400 BMI (Body Mass Index) 29.01 kg/m2 Tomi Uri[facility] 06-20-2019 17:42-0400 Body Temperature 98.2 [degF] Tomi Morgan [facility] 06-20-2019 17:42-0400 Body weight 94.35 kg Tomi [facility] 06-20-2019 17:42-0400 BP Diastolic 78 mm[Hg] [facility] 06-[facility]-2019 17:42-0400 BP Systolic 134 mm[Hg] [facility] 06-20-2019 17:42-0400 Height 180.3 cm [facility] 06-20-2019 17:42-0400 Pulse (Heart Rate) 53 /min [facility] 06-20-2019 17:42-0400 Pulse Oximetry 97 % [facility]i [facility] 06-20-2019 17:42-0400 Respiratory Rate 19 /min Tomi Uriarte [facility] System Encounters Encounter Date Encounter Type Care Provider Facility Start: 02-17-2025 Non-patient / Non-visit Dr. Vu Jean [facility] Work Phone: Start: 02-16-2025 Non-patient / Non-visit Dr. Vu Jean [facility] Work Phone: Start: 02-15-2025 Non-patient / Non-visit Dr. Samantha Leung MD [facility] Work Phone: Start: 02-15-2025 ambulatory Samantha Leung Facility :[facility] Start: 02-15-2025 End: 02-18-2025 Evaluation and management of inpatient Dr. Samantha Leung MD -Medical [facility] 3 Work Phone: Start: 07-26-2024 End: 07-26-2024 ambulatory PEGGY NICOLE Facility:[facility] Start: 07-26-2024 End: 07-26-2024 Patient encounter procedure Diana Duy LICENSED LAND SURVEYOR.FIELD LOGISTICS COORDINATOR Work Phone: [facility] Comment on above: Pain, dental (Primar y Dx) Start: 07-07-2024 End: 07-09-2024 Refill Peggy J Samatoa Work Phone: [facility] Comment on above: Refill Request Start: 06-27-2024 End: 06-27-2024 ambulatory Jan LEE Facility:[facility] Start: 06-05-2024 End: 06-05-2024 Distance Health Peggy [employer] Bonnie [employer] Work Phone: [facility] Comment on above: Encounter for comple tion of form with patient (Primary Dx); WHITNEY (generalized anxiety disorder) Start: 05-28-2024 End: 05-29-2024 ambulatory Peggy [employer] Bonnie [employer] Work Phone: [facility] Comment on above: Donor Suitability Fo li Start: 04-04-2024 End: 04-04-2024 Distance Health [employer] Work Phone: [facility] Comment on above: DDD (degenerative di sc disease), lumbar (Primary Dx); Screening for colon cancer; Hypertension, essential; Alcohol abuse; WHITNEY (generalized anxiety disorder) Start: 01-27-2024 ambulatory [employer] Bonnie Dumont Trist Work Phone: [facility] Comment on above: Valaciclovir Herpes Start: 01-16-2024 End: 01-16-2024 ambulatory [place] Facility:[facility] Start: 01-16-2024 End: 01-16-2024 Patient encounter procedure Kwadwo Spivey TIRSO.FIELD LOGISTICS COORDINATOR Work Phone: [facility] Comment on above: Impacted cerumen of left ear (Primary Dx) Start: 12-19-2023 Non-patient / Non-visit Dr. Félix Gonzalez Work Phone: [facility] Work Phone: Start: 12-18-2023 Non-patient / Non-visit Dr. Félix Gonzalez Work Phone: [facility] Work Phone: Start: 12-17-2023 Non-patient / Non-visit Dr. Félix Gonzalez Work Phone: [facility] Work Phone: Start: 12-17-2023 End: 12-19-2023 Evaluation and management of inpatient Dr. Sloan Gonzalez Work Phone: [facility] 3 Work Phone: Start: 11-01-2023 Refill Peggy J Bonnie D O Work Phone: [facility] Comment on above: Refill Request Start: 10-20-2023 Refill Peggy J Bonnie D O Work Phone: [facility] Comment on above: Refill Request Start: 10-06-2023 End: 10-06-2023 ambulatory PEGGY NICOLE Facility:[facility] Start: 09-30-2023 End: 10-01-2023 Emergency department patient visit FLACO THOMAS [facility] Facility:[facility] Start: 08-17-2023 Refill Peggy J Bonnie D O Work Phone: [facility] Comment on above: Refill Request Start: 08-09-2023 End: 08-09-2023 ambulatory ALECIA BESS Facility:[facility] Start: 08-09-2023 End: 08-09-2023 Patient encounter procedure James PACHECO Psychiatry Comment on above: Uncomplicated alcoho l dependence (HCC) [F10.20] (Primary Dx) Start: 07-28-2023 Chart abstracting Alecia Lundy Work Phone: [facility] Comment on above: Behavioral Health/So cial Work Start: 07-20-2023 Refill Peggy J Bonnie D O Work Phone: [facility] Comment on above: Refill Request Start: 07-19-2023 Telephone encounter Alecia PACHECO Work Phone: Adult [facility] Comment on above: Behavioral Health/So cial Work Start: 07-11-2023 End: 07-11-2023 Distance [employer]ika Nicole DO Work Phone: [facility] Comment on above: Cigarette nicotine d ependence with other nicotine-induced disorder (Primary Dx); WHITNEY (generalized anxiety disorder); Hypertension, essential Start: 07-06-2023 ambulatory Peggy Samantha Werner Work Phone: [facility] Comment on above: Prescription request Start: 06-24-2023 Refill Peggy Werner Work Phone: [facility] Comment on above: Refill Request Start: 06-07-2023 End: 06-07-2023 Distance [employer] Peggy Nicole DO Work Phone: [facility] Comment on above: Hypertension, essent ial (Primary Dx); Plantar fasciitis, bilateral; Cigarette nicotine dependence with other nicotine-induced disorder Start: 05-16-2023 End: 05-17-2023 ambulatory PEGGYMika NICOLE Facility:[facility] Start: 05-16-2023 Encounter for genera l adult medical examination without abnormal findings [facility] Start: 05-14-2023 Refill Peggymika Werner Work Phone: [facility] Comment on above: Refill Request Start: 05-13-2023 Get Medical Advice Peggy Traore joseph DO Work Phone: [facility] Comment on above: Medication refills Start: 04-20-2023 Telephone encounter Alecia PACHECO Work Phone: Adult Psychology Comment on above: Behavioral Health/So cial Work Start: 04-19-2023 End: 04-19-2023 Distance [employer]mika Nicole DO Work Phone: [facility] Comment on above: H/O spinal fusion (P rimary Dx); DDD (degenerative disc disease), lumbar; PTSD (post-traumatic stress disorder); History of alcoholism (HCC); WHITNEY (generalized anxiety disorder); Screening for colon cancer; Preventative health care Start: 04-19-2023 End: 04-19-2023 Patient encounter status Peggy Nicole DO Work Phone: [facility] Work Phone: Start: 02-21-2023 Telephone encounter Dae garcia LICENSED LAND SURVEYOR.FIELD LOGISTICS COORDINATOR Work Phone: [facility] Comment on above: Consult (ENT #[id number] ) Start: 02-16-2023 End: 02-16-2023 ambulatory DAE HOPERUCCI Facility:[facility] Start: 02-16-2023 End: 02-16-2023 Patient encounter procedure Dae Mari LICENSED LAND SURVEYOR.FIELD LOGISTICS COORDINATOR Work Phone: [facility] Comment on above: Impacted cerumen of left ear (Primary Dx); Ear drainage, unspecified laterality Start: 02-23-2022 Refill Alda Maria MD Work Phone: [facility] Start: 11-18-2021 Refill Alda Maria MD Work Phone: [facility] Start: 10-15-2021 End: 10-15-2021 ambulatory ANDRE BARCENAS [facility] Ambulatory Start: 10-15-2021 End: 10-15-2021 Office outpatient visit 15 minutes Andre Duong DPAnalisa Work Phone: [facility] Comment on above: Closed fracture of b ase of fifth metatarsal bone of left foot, initial encounter (Primary Dx) Start: 10-14-2021 End: 10-14-2021 ambulatory ALDA MARIA [facility] Ambulatory Start: 10-14-2021 End: 10-14-2021 Office outpatient new 45 minutes Alda Maria MD Work Phone: [facility] Comment on above: Uncomplicated alcoho l dependence (HCC) (Primary Dx); HSV-1 infection; Chronic bilateral low back pain without sciatica; Anxiety with depression Start: 10-09-2021 End: 10-09-2021 Emergency department patient visit PHYSICIAN [facility] Start: 10-01-2021 End: 10-01-2021 ambulatory THOMAS HOPSON [facility] Ambulatory Start: 10-01-2021 End: 10-01-2021 Office outpatient new 30 minutes Ebunoldakotaa Jose D Kay DO Work Phone: [facility] Comment on above: Gastrocnemius equinu s, unspecified laterality (Primary Dx); Plantar fasciitis of right foot; Pes planus, unspecified laterality; Peroneal tendonitis, right Start: 09-07-2021 End: 09-07-2021 Office outpatient new 45 minutes Ebunoluwa B Linda DO Work Phone: [facility] Comment on above: Plantar fasciitis of right foot (Primary Dx); Pes planus, unspecified laterality; Peroneal tendonitis, right Start: 12-22-2020 End: 12-22-2020 Emergency department patient visit Violetta Foley Work Phone: [facility] Comment on above: Depression, unspecif ied depression type (Primary Dx); History of alcohol abuse; Lab test negative for COVID-19 virus Start: 04-27-2020 End: 04-27-2020 Emergency department patient visit Tan Marrero Work Phone: [facility] Comment on above: Partial thickness bu rn of left wrist, initial encounter (Primary Dx) Start: 11-08-2019 End: 11-08-2019 Patient encounter procedure Christian Harvey Work Phone: [facility] Start: 11-07-2019 End: 11-07-2019 Letter encounter Reed Ferrera [facility] Start: 10-29-2019 End: 10-29-2019 Refill Karrie Willis Work Phone: [facility] Comment on above: Chronic low back keke n, unspecified back pain laterality, unspecified whether sciatica present Start: 10-23-2019 End: 10-23-2019 Telephone encounter Karrie Willis Work Phone: [facility] Comment on above: Information or Advic e only Start: 10-17-2019 End: 10-17-2019 E-mail encounter from carer Karrie Willis Work Phone: [facility] Start: 10-17-2019 Patient encounter procedure Karrie Willis Work Phone: [facility] Comment on above: RE: Prescription Que stion Start: 10-15-2019 End: 10-15-2019 Professional / ancillary services management Negrita BARNES Start: 10-01-2019 End: 10-01-2019 Refill Karrei Willis Work Phone: [facility] Comment on above: Chronic low back keke n, unspecified back pain laterality, unspecified whether sciatica present Start: 10-01-2019 End: 10-01-2019 Refill Karrie Willis Work Phone: [facility] Comment on above: Chronic low back keke n, unspecified back pain laterality, unspecified whether sciatica present Start: 09-25-2019 End: 09-25-2019 Refill Karrie Willis Work Phone: [facility] Comment on above: Chronic low back keke n, unspecified back pain laterality, unspecified whether sciatica present Start: 09-24-2019 End: 09-24-2019 Subsequent hospital visit by physician Karrie Willis Work Phone: [facility] Comment on above: Arrived Start: 09-24-2019 End: 09-24-2019 Patient encounter procedure Christian Gabriel Work Phone: [facility] Start: 09-17-2019 End: 09-17-2019 Subsequent [...] visit by physician Ananda Zhang Work Phone: [facility] (OPS) Start: 08-27-2019 End: 08-27-2019 Subsequent hospital visit by physician Ananda Zhang Work Phone: [facility] Comment on above: Pre-op testing; SVT (supraventricular tachycardia) (HCC) Start: 08-27-2019 End: 08-27-2019 Subsequent hospital visit by physician Karrie Willis Work Phone: [facility] Comment on above: Arrived Start: 08-20-2019 End: 08-20-2019 Subsequent hospital visit by physician Karrie Willis Work Phone: [facility] Comment on above: Arrived Start: 08-08-2019 End: 08-08-2019 Subsequent hospital visit by physician Karrie Willis Work Phone: [facility] Comment on above: Uncomplicated alcoho l dependence (HCC)- sober since 06/2019; Elevated liver enzymes Start: 07-30-2019 End: 07-30-2019 Subsequent hospital visit by physician Karrie Willis Work Phone: [facility] Comment on above: Bradycardia with 41- 50 beats per minute Start: 07-24-2019 End: 07-24-2019 Emergency department patient visit Olayinka Gonzalo Abelardo Work Phone: [facility] Comment on above: Supraventricular tac hycardia (HCC) (Primary Dx) Start: 07-12-2019 End: 07-12-2019 Subsequent hospital visit by physician Karrie Willis Work Phone: [facility] Comment on above: SVT (supraventricula r tachycardia) (HCC) Start: 07-05-2019 End: 07-05-2019 Subsequent hospital visit by physician Karrie Willis Work Phone: [facility] PreAdmission Testing Comment on above: SVT (supraventricula r tachycardia) (HCC); Screening for lipid disorders Start: 06-20-2019 End: 06-20-2019 Emergency department patient visit Tomi Uriarte Work Phone: [facility] Comment on above: Mood disorder (HCC) (Primary Dx) Start: 06-28-2017 End: 06-29-2017 Patient encounter DARRELL ROMERO [facility] Start: 06-27-2017 Ambulatory DARRELL ROMERO [facility] Start: 06-11-2017 End: 06-11-2017 Emergency department patient visit NEELA Jeffery [facility] Procedures Date Procedure Procedure Detail Performing Clinician [...] stick/tabl et reagent auto microscopy Nasra Hauser [employer] Work Phone: Start: 12-22-2020 Basic metabolic pane l calcium total Nasra Hauser [employer] Work Phone: Start: 12-22-2020 Drug screen quantita tive alcohols Violetta Foley [employer] Work Phone: Start: 12-22-2020 GLOMERULAR FILTRATION RATE Nasra [employer] Work Phone: Start: 12-22-2020 Standard ECG Nasra Hauser Ho useholder Work Phone: Start: 12-22-2020 CBC WITH DIFFERENTIAL J theresa Hauser [employer] Work Phone: Start: 05-15-2020 Adult depression scr [...] Care Activity Detail Author Start: 08-08-2029 Colonoscopy [facility] Start: 08-08-2029 Screening for malignant neoplasm of colon COLORECTAL CANCER SCREENING [facility] Start: 05-16-2028 Lipid 1996 panel - Serum or Plasma Lipid Screening [facility] Start: 05-16-2028 Lipid panel Lipid Screening [facility] Start: 05-16-2028 LIPID SCREEN LIPID SCREEN [facility] Start: 09-30-2026 Diabetes Screening Diabetes Screening [facility] Start: 06-27-2026 Diabetes Screening Diabetes Screening [facility] Start: 05-16-2026 DIABETES SCREEN DIABETES SCREEN [facility] Start: 05-16-2026 Diabetes Screening Diabetes Screening [facility] Start: 07-26-2025 BP Controlled (<130/80) BP Controlled (<130/80) [facility] Start: 06-05-2025 Annual PCP Team Chronic Disease Visit Annual PCP Team Chronic Disease Visit [facility] Start: 04-04-2025 Annual PCP Team Chronic Disease Visit Annual PCP Team Chronic Disease Visit [facility] Start: 02-18-2025 Patient discharge [facility] Start: 02-18-2025 Ultrasonography of abdomen Abdomen Limited [facility] Start: 02-18-2025 US Abdomen limited [facility] Start: 02-16-2025 Hepatic function panel [facility] Start: 02-16-2025 Prothrombin time [facility] Start: 02-16-2025 Serum inorganic phosphate measurement [facility] Start: 02-16-2025 Thyroid stimulating hormone measurement [facility] Start: 02-15-2025 Following clinical pathway protocol [facility] Start: 02-15-2025 Hospital admission, emergency, from emergency room, medical nature [facility] Start: 02-15-2025 End: 02-15-2025 [facility] Start: 02-15-2025 Prothrombin time [facility] Start: 02-15-2025 Admission procedure [facility] Start: 02-15-2025 Ambulation without limitation [facility] Start: 02-15-2025 Assessment of risk of venous thromboembolism [facility] Start: 02-15-2025 Insertion of catheter into peripheral vein [facility] Start: 02-15-2025 Providing care according to standard [facility] Start: 02-15-2025 Verification routine [facility] Start: 02-15-2025 End: 02-15-2025 [facility] Start: 02-15-2025 Consultation [facility] Start: 02-15-2025 Patient referral to dietitian [facility] Start: 12-09-2024 Urine microalbumin profile [facility] Start: 10-06-2024 Annual PCP Team Chronic Disease Visit Annual PCP Team Chronic Disease Visit [facility] Start: 07-11-2024 Annual PCP Team Chronic Disease Visit Annual PCP Team Chronic Disease Visit [facility] Start: 07-05-2024 Fasting lipid profile LIPID SCREENING [facility] Start: 07-05-2024 LIPID SCREEN LIPID SCREEN [facility] Start: 06-05-2024 End: 06-05-2024 ambulatory 06/05/2024 8:40 AM EDT [facility] [address] [place] [address] Peggy Nicole DO [address] [place] [address] The Donor Suitability form. [facility] Comment on above: The Donor Suitability form. Start: 05-20-2024 Covid-19 Vaccine () Covid-19 Vaccine () [facility] Start: 05-20-2024 Covid-19 Vaccine () Covid-19 Vaccine () [facility] Start: 05-20-2024 Influenza vaccination [facility] Start: 05-18-2024 End: 05-18-2024 Patient encounter procedure 05/18/2024 11:30 AM EDT Office Visit Otolaryngology [address] [address] Gladis Caban MD [address] [address] Ear drainage, unspecified laterality [H92.10] Otolaryngology Comment on above: Ear drainage, unspecified laterality [H9 2.10] Start: 03-19-2024 End: 03-19-2024 Patient encounter procedure 03/19/2024 2:30 PM EDT Office Visit Otolaryngology [address] [address] Gladis Caban MD [address] [address] Ear drainage, unspecified laterality [H92.10] Otolaryngology Comment on above: Ear drainage, unspecified laterality [H9 2.10] Start: 02-12-2024 Prostate specific antigen measurement Prostate Cancer Screening Discussion [facility] Start: 12-19-2023 Patient discharge [facility] Start: 12-17-2023 Following clinical pathway protocol [facility] Start: 12-17-2023 Assessment of risk of venous thromboembolism [facility] Start: 12-17-2023 Notification of physician [facility] Start: 12-17-2023 Vital signs measurements [facility] Start: 12-17-2023 [facility] Start: 12-17-2023 Admission procedure [facility] Start: 12-17-2023 Hospital admission, emergency, from emergency room, medical nature [facility] Start: 09-19-2023 Behavioral Health Screening Behavioral Health Screening [facility] Start: 09-19-2023 Depression Assessment Depression Assessment [facility] Start: 05-20-2023 Covid-19 Vaccine ( season) Covid-19 Vaccine () [facility] Start: 05-20-2023 Influenza vaccination [facility] Start: 04-19-2023 End: 06-19-2023 Comprehensive metabolic 2000 panel - Serum or Plasma COMP METABOLIC PANEL Lab Routine Preventative health care Expected: 04/19/2023, Expires: 06/19/2023 [facility] Work Phone: Comment on above: Expected: 04/19/2023, Expires: 3 Start: 04-19-2023 End: 06-19-2023 Hemoglobin A1c in Blood HGB A1C Lab Routine Preventative health care Expected: 04/19/2023, Expires: 06/19/2023 [facility] Work Phone: Comment on above: Expected: 04/19/2023, Expires: 3 Start: 04-19-2023 End: 06-19-2023 Lipid 1996 panel - Serum or Plasma LIPID PANEL BASIC Lab Routine Preventative health care Expected: 04/19/2023, Expires: 06/19/2023 [facility] Work Phone: Comment on above: Expected: 04/19/2023, Expires: 3 Start: 09-19-2022 DEPRESSION ASSESSMENT DEPRESSION ASSESSMENT [facility] Start: 05-20-2022 Influenza vaccination Sequential Influenza Vaccine (Season Ended) [facility] Start: 11-02-2021 End: 11-02-2021 Patient encounter procedure 11/02/2021 Office Visit Orthopedic Surgery MendAndre french DPM [address] [place] [address] [facility] Start: 10-14-2021 End: 10-14-2021 Patient encounter procedure 10/14/2021 Office Visit Primary Care Alda Maria MD [address] [place] [address] [facility] Start: 09-22-2021 End: 09-22-2021 Patient encounter procedure 09/22/2021 Office Visit Orthopedic Surgery Andre Duong DPM [address] [place] [address] [facility] Start: 05-20-2021 Influenza vaccination Sequential Influenza Vaccine (#1) [facility] Start: 05-15-2021 Adult depression screening assessment DEPRESSION SCREENING [facility] Start: 08-08-2020 Adult depression screening assessment [facility] Comment on above: Postponed from 1981 (Provider Ashley vicente) Start: 06-11-2020 DIABETES SCREEN DIABETES SCREEN [facility] Start: 06-04-2020 End: 06-04-2020 Office Visit 06/04/2020 Office Visit Family Medicine Karrie Willis PA [address] [place] [address] [phone] [facility] [address] [facility] Start: 05-20-2020 Influenza vaccination given INFLUENZA VACCINE (#1) [facility] Start: 01-08-2020 End: 01-08-2020 Office Visit 01/08/2020 Office Visit Dentistry Christian Gabriel DDS [address] [place] [address] [phone] [facility] Start: 11-27-2019 End: 11-27-2019 Office Visit 11/27/2019 Office Visit Cardiology Ananda Zhang MD [address] [facility] [address] [place] [address] [phone] [facility] Start: 11-14-2019 End: 11-14-2019 Office Visit 11/14/2019 Office Visit Family Medicine Karrie Willis PA [address] [place] [address] [phone] [facility] Start: 11-08-2019 End: 11-08-2019 Office Visit 11/08/2019 Office Visit Dentistry Christian Gabriel DDS [address] [place] [place] [address] [phone] [facility] Start: 10-15-2019 End: 10-15-2019 Office Visit 10/15/2019 Office Visit Cardiology Ananda Zhang MD [address] [address] [phone] [facility] Start: 10-01-2019 End: 10-01-2019 Appointment 10/01/2019 Appointment Physical Therapy Karrie Willis PA [address] [place] [address] [phone] Bogadn 6196Sosa PTA [facility] Start: 09-28-2019 End: 09-28-2019 Appointment [facility] Start: 09-24-2019 End: 09-24-2019 Appointment 09/24/2019 Appointment Physical Therapy Karrie Willis PA [address] [address] [phone] Janet Resendiz 6490Elidia PTA COOR Start: 09-24-2019 End: 09-24-2019 Office Visit 09/24/2019 Office Visit Christian Ann DDS [address] [place] [address] [phone] [facility] Start: 09-21-2019 End: 09-21-2019 Appointment [facility] Start: 09-14-2019 End: 09-14-2019 Appointment 09/14/2019 Appointment Physical Therapy Karrie Willis PA [address] [place] [address] [phone] Negrita Zamora, PT, DPT [facility] Start: 09-07-2019 End: 09-07-2019 Appointment 09/07/2019 Appointment Physical Therapy Karrie Willis PA [address] [place] [address] [phone] Sosa Golden PTA [facility] Start: 09-03-2019 End: 09-03-2019 Appointment 09/03/2019 Appointment Physical Therapy Karrie Willis PA [address] [place] [address] [phone] Sosa Golden PTA [facility] Start: 08-31-2019 End: 08-31-2019 Appointment [facility] Start: 08-29-2019 End: 08-29-2019 Hospital Encounter [facility] (OP S) Comment on above: SUPRAVENTRICULAR TACHYCARDIA ABLATION (S [place]) Start: 08-27-2019 End: 08-27-2019 Appointment 08/27/2019 Appointment Physical Therapy Karrie Willis PA [address] [address] [phone] Negrita Zamora, PT, DPT [facility] Start: 08-15-2019 End: 08-15-2019 Office Visit 08/15/2019 Office Visit Family Medicine Karrie Willis PA [address] [place] [address] [phone] [facility] Start: 08-14-2019 End: 08-14-2019 Office Visit 08/14/2019 Office Visit Cardiology Rupesh Franco MD [address] [place] [address] [phone] [facility] Start: 08-09-2019 Screening for malignant neoplasm of colon COLORECTAL CANCER SCREENING [facility] Start: 08-09-2019 End: 08-09-2019 Office Visit 08/09/2019 Office Visit Cardiology Ananda Zhang MD [address] [facility] 1st [place] [address] [phone] [facility] Start: 08-08-2019 End: 08-08-2019 Office Visit 08/08/2019 Office Visit Family Medicine Karrie Willis PA [address] [place] [address] [phone] [facility] Start: 07-30-2019 End: 07-30-2019 Appointment 07/30/2019 Appointment Heart and Vascular Diagnostics Karrie Willis PA [address] [place] [address] [phone] [facility]STIC STRESS [facility] Start: 07-12-2019 End: 07-12-2019 Appointment 07/12/2019 Appointment Heart and Vascular Diagnostics Karrie Willis PA [address] [place] [address] [phone] [id number] [facility] HEART AND VASCULAR DIAGNOSTIC ECHO Start: 05-20-2019 Influenza vaccination given INFLUENZA VACCINE (#1) [facility] Start: 2019 Administration of herpes zoster vaccine Zoster Vaccines (1 of 2) [facility] Start: 2019 Colonoscopy COLON CANCER SCREENING 10 YEAR COLONOSCOPY [facility] Start: 2019 Screening for malignant neoplasm of colon [facility] Start: 2019 SHINGLES VACCINE (1 of 2) SHINGLES VACCINE (1 of 2) [facility] Start: 2019 SHINGRIX VACCINE (1 of 2) SHINGRIX VACCINE (1 of 2) [facility] Start: 2019 Zoster vaccine hzv live for subcutaneous use ZOSTER (SHINGLES) VACCINE (1 of 2) [facility] Start: 2014 COLOGUARD (FIT-DNA) COLOGUARD (FIT-DNA) [facility] Start: 2014 Colonoscopy COLONOSCOPY [facility] Start: 2014 COLORECTAL CANCER SCREENING COLORECTAL CANCER SCREENING [facility] Start: [address] COLONOGRAPHY [facility] Start: 2014 FECAL OCCULT BLOOD FECAL OCCULT BLOOD [facility] Start: 2014 Screening for malignant neoplasm of colon [facility] Start: 2014 SIGMOIDOSCOPY SIGMOIDOSCOPY [facility] Start: 1990 Tetanus, diphtheria and acellular pertussis vaccination TDAP/TD ADULT [facility] Start: 02-12-1988 Hepatitis B Vaccine (1 of 3 - 19+ 3-dose series) Hepatitis B Vaccine (1 of 3 - 19+ 3-dose series) [facility] Start: 1987 ANNUAL WELLNESS VISIT ANNUAL WELLNESS VISIT [facility] Start: 1987 Anxiety Screening Anxiety Screening [facility] Start: 1987 BP Controlled (<130/80) BP Controlled (<130/80) [facility] Start: 1987 Depression Screening Depression Screening [facility] Start: 1987 Hepatitis C screening Hepatitis C Screening [facility] Start: 1987 HEPATITIS C SCREENING HEPATITIS C SCREENING [facility] Start: 1987 HIV SCREENING HIV SCREENING [facility] Start: 1987 HIV screening HIV Screening [facility] Start: 1987 WELLNESS ANNUAL VISIT WELLNESS ANNUAL VISIT [facility] Start: 02-12-1984 HIV screening HIV Screening [facility] Start: 1981 Adult depression screening assessment PHQ9 DEPRESSION SCREENING [facility] Start: 1981 Depression screening using PHQ-9 (Patient Health Questionnaire 9) score Depression Screening (PHQ-2/9) [facility] Start: 02-12-1980 Diphtheria + pertussis + tetanus vaccine (product) DTAP/TDAP/TD VACCINE (1 - Tdap) [facility] Start: 1975 PNEUMOCOCCAL (1 - PCV) PNEUMOCOCCAL (1 - PCV) [facility] Start: 1975 Pneumococcal vaccination [facility] Start: 1975 Pneumococcal Vaccine: Ped or At-Risk (1 - PCV) Pneumococcal Vaccine: Ped or At-Risk (1 - PCV) [facility] Start: 1975 Pneumococcal Vaccine: Ped or At-Risk (1 of 2 - PPSV23) Pneumococcal Vaccine: Ped or At-Risk (1 of 2 - PPSV23) [facility] Start: 1974 COVID-19 Vaccine (#1) COVID-19 Vaccine (#1) [facility] Start: 1974 COVID-19 Vaccine (1) COVID-19 Vaccine (1) [facility] Start: 02-12-1972 History and physical examination, annual for health maintenance Wellness Visit [facility] Start: 1969 COVID-19 VACCINE (#1) COVID-19 VACCINE (#1) [facility] Start: 1969 COLON CANCER SCREENING ANNUAL FOBT COLON CANCER SCREENING ANNUAL FOBT [facility] Start: 1969 HEPATITIS B (1 of 3 - 3-dose series) HEPATITIS B (1 of 3 - 3-dose series) [facility] Start: 1969 Hepatitis B Vaccine (1 of 3 - 3-dose series) Hepatitis B Vaccine (1 of 3 - 3-dose series) [facility] Start: 1969 Prostate specific antigen measurement PSA Level [facility] Start: 1969 Tetanus vaccination Tetanus: Every 10yrs [facility] Alanine aminotransfe rase [Enzymatic activity/volume] in Serum or Plasma [facility] Albumin [Mass/volume ] in Serum or Plasma [facility] Alkaline phosphatase [Enzymatic activity/volume] in Serum or Plasma [facility] Amphetamines [Presen ce] in Urine by Screen method >1000 ng/mL [facility] Anion gap in Serum o r Plasma [facility] Benzodiazepine measurement, urine [facility] Bilirubin, total measurement [facility] Bilirubin.direct [Mass/volume] in Serum or Plasma [facility] BUN/Creatinine ratio [facility] Calcium [Mass/volume ] in Serum or Plasma [facility] Carbon dioxide, tota l [Moles/volume] in Central venous blood [facility] End: 07-30-2019 Cardiac Event Monitor - 30 Day Cardiac Event Monitor - 30 Day Cardiac Services Routine Bradycardia with 41-50 beats per minute 1 Occurrences starting 07/30/2019 until 07/30/2019 [facility] Comment on above: 1 Occurrences starting 07/30/2019 until 07/30/2019 Cardiac Event Monito r - 30 Day Cardiac Event Monitor - 30 Day Cardiac Services Routine Bradycardia with 41-50 beats per minute 07/30/2019 12:24 PM EST [facility] Cocaine measurement, urine [facility] COLOGUARD COLOGUARD Lab Ro utine Screening for colon cancer Ordered: 04/19/2023 [facility] Work Phone: Comment on above: Ordered: 04/19/2023 COLOGUARD COLOGUARD Lab Ro utine Screening for colon cancer Ordered: 04/04/2024 [facility] Work Phone: Comment on above: Ordered: 04/04/2024 Creatinine [Mass/vol ume] in Serum or Plasma [facility] End: 07-12-2019 Echocardiogram complete (M-Mode/2D) Echocardiogram complete (M-Mode/2D) Echocardiography Routine SVT (supraventricular tachycardia) ([facility]) 1 Occurrences starting 07/12/2019 until 07/12/2019 [facility] Comment on above: 1 Occurrences starting 07/12/2019 until 07/12/2019 Echocardiogram compl ete (M-Mode/2D) Echocardiogram complete (M-Mode/2D) Echocardiography Routine SVT (supraventricular tachycardia) ([facility]) 07/12/2019 8:28 AM EDT [facility] Erythrocyte mean corpuscular volume determination [facility] fentaNYL [Presence] in Urine by Screen method [facility] Glucose [Mass/volume ] in Serum or Plasma [facility] Hematocrit [Volume Fraction] of Blood [facility] Hemoglobin [Mass/vol ume] in Blood [facility] End: 07-12-2019 Holter Monitor Complete - 24 Hour Holter Monitor Complete - 24 Hour Cardiac Services Routine SVT (supraventricular tachycardia) ([facility]) 1 Occurrences starting 07/12/2019 until 07/12/2019 [facility] Comment on above: 1 Occurrences starting 07/12/2019 until 07/12/2019 Holter Monitor Compl ete - 24 Hour Holter Monitor Complete - 24 Hour Cardiac Services Routine SVT (supraventricular tachycardia) ([facility]) 07/12/2019 9:55 AM EDT [facility] INR in Blood by Coagulation assay [facility] INR in Blood by Coagulation assay [facility] Leukocytes [#/volume ] in Blood [facility] Magnesium measurement [facility] Mean corpuscular hemoglobin concentration determination [facility] Mean corpuscular hemoglobin determination [facility] Measurement of renal function [facility] Methadone measuremen t, urine [facility] Neutrophil count [facility] Neutrophil percent differential count [facility] Oxygen Therapy Nasal Cannula; Liters Per Minute: 2.0 LPM; RT may modify oxygen administration per policy: Yes Maintain O2 sats > 92% Oxygen Therapy Nasal Cannula; Liters Per Minute: 2.0 LPM; RT may modify oxygen administration per policy: Yes Maintain O2 sats > 92% Respiratory Care Routine As Needed until discontinued starting 08/29/2019 [facility] Comment on above: As Needed until discontinued starting Patient Education Alcohol Withdr awal: What to Expect ED Withdrawal Alcohol [facility] Work Phone: Patient referral [facility] Work Phone: Phencyclidine [Prese nce] in Urine [facility] Platelets [#/volume] in Blood [facility] End: 08-29-2019 POCT glucose - for diabetic patients POCT glucose - for diabetic patients Point of Care Testing Routine One Time for 1 Occurrences starting 08/29/2019 until 08/29/2019 [facility] Comment on above: One Time for 1 Occurrences starting 08/19 until 08/29/2019 Potassium measurement [facility] Pulse oximetry, continuous Pulse oximetry, continuous Respiratory Care Routine Continuous until discontinued starting 08/29/2019 [facility] Comment on above: Continuous until discontinued starting 10/30/2018 Red blood cell count [facility] Red cell distributio n width determination [facility] Serum chloride measurement [facility] Sodium measurement [facility] Standard ECG [facility] Comment on above: As Needed until discontinued starting Total protein measurement [facility] End: 07-24-2019 Troponin I.cardiac [Mass/Vol] Troponin I Lab Timed Now Then Every 3hr for 2 Occurrences starting 07/24/2019 until 07/24/2019 [facility] Comment on above: Now Then Every 3hr for 2 Occurrences sta rting 07/24/2019 until 07/24/2019 Troponin T.cardiac [Mass/volume] in Serum or Plasma by High sensitivity method [facility] Troponin T.cardiac [Mass/volume] in Serum or Plasma by High sensitivity method [facility] Urea nitrogen [Mass/volume] in Serum or Plasma [facility] Urine cannabinoid measurement [facility] Urine opiate measurement [facility] Immunizations Immunization Date Immunization Notes Care Provider Mecca cortés 08-20-2019 influenza virus vaccine, unspecified formulation [facility] 12-09-2014 tetanus toxoid, reduced diphtheria toxoid, and acellular pertussis vaccine, adsorbed Dae Mastrucci [employer] COORDINATOR Work Phone: [facility] Payers Date Payer Category Payer Self-pay 2021 Medicaid [id number] 2021 Medicaid [id number] 2021 Unknown [id number] 2019 Medicaid [id number] 2019 Medicaid [employer] APR[employer] CRISTIAN MERCADO O [id number] 2019-Present [address] [place] [address] Medicaid [id number] 1969 Unknown [id number] 1969 Unknown [id number] 1969 Unknown [id number] 1969 Unknown [id number] Medicaid [id number] Unknown [id number] Unknown [id number] Unknown [id number] Unknown [id number] Unknown [id number] Unknown [id number] Social History Date Type Detail Facility Tobacco smoking stat us MDIS Unknown if ever smoked [facility] Start: 1970 Sex Assigned At Not on file [facility] Start: 07-04-2019 End: 02-15-2025 Tobacco smoking status NHIS Current every day smoker [facility] History of tobacco use Cigarette Smoker [facility] Start: 07-04-2019 End: 03-19-2024 Cigarettes smoked current (pack per day) - Reported [facility] Start: 07-04-2019 End: 07-26-2024 Alcohol intake Ex-drinker (finding) [facility] Start: 07-04-2019 History SDOH Alcohol Frequency 5 [facility] Start: 07-04-2019 Tobacco Comment interesting in quitting 07/04/19 [facility] Start: 07-04-2019 Alcohol Comment 1/5 of vodka daily- reports last drink was 15 days ago 07/04/19 [facility] Start: 08-09-2019 Tobacco Comment interesting in quitting 07/04/19spring [facility] Start: 07-24-2019 Alcohol Comment 1/5 of vodka daily- reports last drink was 07/04/19 [facility] Start: 04-27-2020 Tobacco smoking status NHIS Former smoker [facility] Start: 04-27-2020 End: 04-19-2023 Tobacco use and exposure Never used [facility] Start: 12-31-2019 Tobacco Comment quit 2 weeks ago 12/31/19 [facility] Start: 11-21-2019 Alcohol Comment sober for 5 months 11/21/19 [facility] Start: 12-22-2020 Alcohol intake Current drinker of alcohol (finding) [facility] Exposure to SARS-CoV -2 (event) Not sure [facility] Exposure to SARS-CoV -2 (event) Yes [facility] Start: 1970 End: 03-19-2024 Sex Assigned At [facility] Start: 02-16-2023 Alcohol Comment 41 days sober [facility] Adult Depression Screening Assessment 0 [facility] Start: 04-19-2023 Tobacco Comment 3-5 cigs currently [facility] Start: 12-17-2023 End: 12-18-2023 Tobacco smoking status NHIS Unknown if ever smoked [facility] Start: 1970 Sex Assigned At Male [facility] Start: 07-21-2024 Gender identity Identifies as male gender (finding) [facility] Start: 07-21-2024 Sexual orientation Heterosexual (finding) [facility] Medical Equipment Procedure Code Equipment Code Equipment Original Text Equi pment Identifier Dates Procedure Implant ([id number]) Goals Date Patient Goal Desired Activity /State Functional Status Date Assessment Result Facility 02-18-2025 Functional status Ambulates;Up ad janeth [facility] Work Phone: 12-19-2023 Functional status Ambulates [facility] Work Phone: Mental Status Date Assessment Result Facility 02-18-2025 Cognitive function Voice/Name [facility] Work Phone: 02-17-2025 Cognitive function Appropriate;Cooperativ e [facility] Work Phone: 12-19-2023 Cognitive function Patient Behavior Anxio us [facility] Work Phone: 12-18-2023 Cognitive function Voice/Name [facility] Work Phone: Clinical Notes 09-07-2021 to 02-18-2025 Note Date & Type Note Facility 02-18-2025 Discharge summary [facility] 02-18-2025 Note [facility] Medical Records Department [address] [place] [address] Discharge Summary 02/18/25 1244 MR#: [id number] Acct: [id number] Name: SLOAN HARVEY Rep #: [id number] : 1970 55 From: Tammy Cespedes MD PCP: Dr. Peggy Nicole DO Status:DIS IN Location: MS3 GT626-4 Providers Date of Admission: 02/15/25 Date of [...] hepatic steatosis. No acute cholecystitis. Reading Location: [id number] D/C Instructions Discharge Diet: Low fat / [...] Ischemic Stroke Stati (more content not included)... [facility] 02-17-2025 Progress note Note Date/Time February 17, 2025 4:09p m [facility] Medical Records Department [address] [place] [address] Progress Note - Hospitalist 02/17/25 1606 MR#: [id number] Acct: [id number] Name: SLOAN HARVEY Rep #:[id number] : 1970 55 From: Vu Dumont PCP: Dr. Peggy Nicole, DO Status:ADM IN Location: [facility] [id number] Reason for Visit Reason for Visit: Diagnoses [...] #Alcohol use disorder - Monitoring based on [facility] protocol - Symptom management using gabapentin, dicyclomine, [...] Ratio 1.4 Charges/Coding Visit Charges Inpatient E&M: 97896 Subs Hosp L2 02/17/25 1609 <Electronically signed by Vu Jean MD> Cosigner Signature (if applicable): CC: ~ Signed [facility] Work Phone: 1(775) 937-638306-01-2025 Progress note [facility] Medical Records Department [address] [place] [address] Progress Note - Hospitalist 02/17/25 1606 MR#: [id number] Acct: [id number] Name: SLOAN HARVEY Rep #:[id number] : 1970 55 From: Vu Dumont PCP: Dr. Peggy Nicole, DO Status:ADM IN Location: [place] [address] Reason for Visit Reason for Visit: Diagnoses [...] #Alcohol use disorder - Monitoring based on [facility] protocol - Symptom management using gabapentin, dicyclomine, [...] Ratio 1.4 Charges/Coding Visit Charges Inpatient E&M: 21126 Subs Hosp L2 02/17/25 1609 Cosigner Signature (if applicable): CC: ~ Signed [facility]05-31-2025 Progress note Author Vu Jean [facility] Note Date/Time February 16, 2025 5:11p m [facility] Medical Records Department [address] [place] [address] Progress Note - Hospitalist 02/16/25 0749 MR#: [id number] Acct: [id number] Name: SLOAN HARVEY Rep #:[id number] : 1970 55 From: Vu Dumont PCP: Dr. Peggy Nicole, DO Status:ADM IN [facility] Reason for Visit Reason for Visit: Diagnoses [...] % (Auto) 66.2, Lymph % (Auto) 23.7, [place] % (Auto) 6.9, Eos % (Auto) 1.9, [...] % (Auto) 57.0, Lymph % (Auto) 27.9, [place] % (Auto) 10.4 H, Eos % (Auto) [...] #Alcohol use disorder - Monitoring based on [facility] protocol - Symptom management using gabapentin, dicyclomine, [...] -Full code Charges/Coding Visit Charges Inpatient E&M: 09349 Subs Hosp L2 02/16/25 1711 <Electronically signed by Vu Jean MD> Cosigner Signature (if applicable): CC: ~ Signed [facility] Work Phone: 1(386) 680-269305-31-2025 Progress note [facility] Medical Records Department [address] [place] [address] Progress Note - Hospitalist 02/16/25 0749 MR#: [id number] Acct: [id number] Name: SLOAN HARVEY Rep #:[id number] : 1970 55 From: Vu Dumont PCP: Dr. Peggy Nicole, DO Status:ADM IN Location: [place] [address]-1 Reason for Visit Reason for Visit: Diagnoses [...] % (Auto) 66.2, Lymph % (Auto) 23.7, [place] % (Auto) 6.9, Eos % (Auto) 1.9, [...] % (Auto) 57.0, Lymph % (Auto) 27.9, [place] % (Auto) 10.4 H, Eos % (Auto) [...] #Alcohol use disorder - Monitoring based on [facility] protocol - Symptom management using gabapentin, dicyclomine, [...] -Full code Charges/Coding Visit Charges Inpatient E&M: 30979 Subs Hosp L2 02/16/25 1711 Cosigner Signature (if applicable): CC: ~ Signed [facility]05-31-2025 Discharge summary Author Kris Wood [facility] Note Date/Time February 15, 2025 11:03 pm [facility] Medical Records Department [address] [place] [address] Emergency Department Summary 02/15/25 MR#: [id number] Acct: [id number] Name: SLOAN HARVEY Rep #:[id number] : 1970 55 From: Kris Wood DO PCP: Dr. Peggy Nicole DO Status:ADM IN Location: [place] [address]-1 HPI History of Present Illness Chief Complaint: [...] has no stenting. He does smoke cigarettes. [facility] Medical History Anxiety Depression Hypertension Home Medications [...] % (Auto) 66.2 Lymph % (Auto) 23.7 [place] % (Auto) 6.9 Eos % (Auto) 1.9 [...] Care Physician,No Primary [Non-Staff] - Print Language: [place] Disposition Disposition: Acute Care Hospital [facility] What to do if you have Problems For any increased pain, shortness of breath, bleeding, nausea or vomiting, chestpain, or any unexpected problems, contact your Primary Care Provider. Call [facility] ([phone]) or report to the closest Emergency Room. Call 911 if necessary. 02/15/25 2515 <Electronically signed by Kris Wood DO> Cosigner Signature (if applicable): CC: Dr. Peggy Nicole DO ~ Signed [facility] Work Phone: 1(236) 401-776605-30-2025 Discharge summary [facility] Medical Records Department [address] [place] [address] Emergency Department Summary 02/15/25 MR#: [id number] Acct: [id number] Name: SLOAN HARVEY Rep #:[id number] : 1970 55 From: Kris Wood DO PCP: Dr. Peggy Nicole, DO Status:ADM IN Location: [place] TP162-0 HPI History of Present Illness Chief Complaint: [...] has no stenting. He does smoke cigarettes. [facility] Medical History Anxiety Depression Hypertension Home Medications [...] % (Auto) 66.2 Lymph % (Auto) 23.7 [place] % (Auto) 6.9 Eos % (Auto) 1.9 [...] Care Physician,No Primary [Non-Staff] - Print Language: [place] Disposition Disposition: Acute Care [facility] What to do if you have Problems For any increased pain, shortness of breath, bleeding, nausea or vomiting, chestpain, or any unexpected problems, contact your Primary Care Provider. Call [facility] ([phone]) or report tothe closest Emergency Room. Call 911 if necessary. 02/15/25 2303 Cosigner Signature (if applicable): CC: Dr. Peggy Nicole, ~ Signed [facility]05-30-2025 History and physical note Author Samantha Leung [facility] Note Date/Time February 15, 2025 5:49p m [facility] Medical Records Department [address] [place] [address] H&P Exam - Hospitalist 02/15/25 1742 MR#: [id number] Acct: [id number] Name: SLOAN HARVEY Rep #:[id number] : [...] no other drug use. Previously admitted to [facility] for detoxification about 14 months back, [...] bilirubin 1.02, Ethyl alcohol 97.6 [facility] Medical History Anxiety Depression Hypertension [...] % (Auto) 66.2, Lymph % (Auto) 23.7, [place] % (Auto) 6.9, Eos % (Auto) 1.9, [...] Leung MD; Dr. Peggy Nicole DO~ Signed [facility] Work Phone: [phone]) 507-398905-30-2025 Evaluation note* Diagnosis Onset Date Resolution Status Admit Date Polysubstance abuse acute January 192024 5:40pm [facility] Work Phone: 1(711) 212-333905-30-2025 History and physical note [facility] Medical Records Department [address] [place] [address] H&P Exam - Hospitalist 02/15/251741 MR#: [id number] Acct: [id number] Name: SLOAN HARVEY Rep #:[id number] : [...] no other drug use. Previously admitted to [facility] for detoxification about 14 months back, [...] bilirubin 1.02, Ethyl alcohol 97.6 [facility] Medical History Anxiety Depression Hypertension [...] % (Auto) 66.2, Lymph % (Auto) 23.7, [place] % (Auto) 6.9, Eos % (Auto) 1.9, [...] Encourage mobilization # CODE -Full code 02/15/25 8859 Cosigner Signature (if applicable): CC: Dr. Samantha Leung MD; Dr. Peggy Nicole DO~ Signed [facility]11-07-2024 NoteHNO ID: [id number] Author: DIANA ROBERTSON APRN.FIELD LOGISTICS COORDINATOR Service: ? Author Type: Nurse Practitioner Type: [...] history is provided by the patient. 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 Dental Problem Review of Systems [...] agreeable to this care plan. Diana Robertson APRN.[facility]11-07-2024 History of Present illness Narrative* Diana Robertson APRN.[facility] - 07/26/2024 7:47 PM EST Images [...] history is provided by the patient. 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 Dental Problem Review of Systems [...] (degenerative disc disease), lumbar History of alcoholism ([facility]) SVT (supraventricular tachycardia) ([facility]) s/p ablation TIA (transient ischemic [...] agreeable to this care plan. Diana Robertson APRN.FIELD LOGISTICS COORDINATOR documented in this encounterNation[facility]10-21-[facility]24 Telephone encounter Note * Telephone Encounter - [...] July 09, 2024 2:12 PM 2:12 PM [facility]10-21-2024 Miscellaneous Notes* Telephone Encounter - Angela Rosenberg [...] 2:12 PM 2:12 PM documented in this encounterNationwide Children'S Hospital09-17-2024 NoteHNO ID: [id number] Author: PEGGY NICOLE DO Service: ? Author Type: Physician Type: Progress Notes Filed: 06/05/2024 14:19 Note Text: Telemedicine Visit - Distance Health Virtual Visit Note Patient seen on NoWait Video Visit platform. Location of patient: [place] PCP: Peggy Nicole DO History of Present [...] support currently, does not require adult social services manager at this time - Follow up as [...] visit. 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 Electronically Signed: Peggy Nicole DO. [facility]09-17-2024 History of Present illness Narrative* Peggy Nicole DO - 06/05/2024 8:35 AM EDT Telemedicine Visit - Distance Health Virtual Visit Note Patient seen on NoWait Video Visit platform. Location of patient: [place] PCP: Peggy Nicole DO History of Present [...] support currently, does not require adult social services manager at this time - Follow up as [...] visit. 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 Author [...] RN June 05, 2024 8:31 AM 8:31 [facility]09-10-2024 Telephone encounter Note* Telephone Encounter - Angela Rosenberg MA - 05/29/2024 3:24 PM EDT Items addressed in this encounter: Telephone Encounter Patient scheduled for 06/05/24 Angela Rosenberg MA May 29, 2024 3:24 PM 3:24 PM [facility]09-10-2024 Miscellaneous Notes* Telephone Encounter - Angela Rosenberg [...] 1:43 PM 1:43 PM documented in this encounterNationwide [facility]09-09-2024 Telephone encounter Note * Telephone Encounter - Angela Rosenberg MA - 05/28/2024 3:01 PM EDT Items addressed in this encounter: Telephone Encounter MyChart Encounter Attempted to reach patient no answer LVM and sent mychart message appointment needed Angela Rosenberg MA May 28, 2024 3:01 PM 3:01 PM [facility]09-09-2024 Telephone encounter Note* Telephone Encounter - Peggy Nicole DO - 05/28/2024 2:02 PM EDT Virtual visit to discuss with me would be recommended [facility]09-09-2024 Telephone encounter Note* Telephone Encounter - Angela Rosenberg MA - 05/28/2024 1:43 PM EDT Items addressed in this encounter: MyChart Encounter Would a appointment be recommended please advise Anegla Rosenberg MA May 28, 2024 1:43 PM 1:43 PM [facility]07-17-2024 Instructions* Patient Instructions* Peggy Nicole DO - 04/04/2024 4:03 PM EDT The central scheduling phone number is [phone]. documented in this encounterNationwide Children'S Hospital07-17-2024 NoteHNO ID: [id number] Author: PEGGY NICOLE DO Service: ? Author Type: Physician Type: Progress Notes Filed: 04/04/2024 17:23 Note Text: Telemedicine Visit - Distance Health Virtual Visit Note Patient seen on NoWait Video Visit platform. Location of patient: [place] PCP: Peggy Nicole DO History of Present Illness Sloan Harvey is a 54 year old male who presents for a follow-up. Alcohol Abuse: - Relapsed in September and was able to get into a facility in [place] at the end of November - transitional [...] visit. 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 Electronically Signed: Peggy Nicole DO. [facility]07-17-2024 History of Present illness Narrative* Peggy Nicole DO - 04/04/2024 3:51 PM EDT Telemedicine Visit - Distance Health Virtual Visit Note Patient seen on NoWait Video Visit platform. Location of patient: [place] PCP: Peggy Nicole DO History of Present Illness Sloan Harvey is a 54 year old male who presents for a follow-up. Alcohol Abuse: - Relapsed in September and was able to get into a facility in [place] at the end of November - transitional [...] visit. 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 Author Type: Registered Nurse Type: Progress Notes Filed: 04/04/2024 17:23 Note Text: Items addressed in this encounter: Other VV pre check name and location verified, aware of tele health visit with A Bonnie Howe gad7/ phq9 completed Golden Alvarado RN April 04, 2024 9:59 AM 9:59 [facility]05-25-2024 Telephone encounter Note* Telephone Encounter - Masha Basurto RN - 2024 12:16 PM EDT Letter sent [facility]05-25-2024 Miscellaneous Notes* Telephone Encounter - Masha Basurto [...] nurse * Telephone Encounter - Erika Morillo APRN.FIELD LOGISTICS COORDINATOR - 01/27/2024 4:50 PM EDT Does patient have an acute outbreak right now? I don't see this has even been addressed by Dr. Nicole. He may need evaluation. Thanks, Erika Morillo APRN.FIELD LOGISTICS COORDINATOR Covering for Peggy Nicole DO * Telephone Encounter - Neda Pulido RN - 01/27/2024 2:16 PM EDT Images from the original note were not included. Sloan Roth [facility] (supporting Peggy Nicole DO)46 minutes ago (1:29 PM) CAROLINA Richmond, I think I have had a stash of this medication since before you began as my Primary Care. I don't see it on the list in MyChart nor in my history with [facility]. Normally that would be a good thing since itindicates I haven't needed it. But now I do. Can I get a prescription for either the 500mg or 1g dosage to a new pharmacy? I've relocated. The closest pharmacy that is open after 5pm today and on the weekends is [facility] at [address] [place] [address]. Thank you, Sloan documented in this encounterNationwide Children'[facility] Hospital05-25-2024 Telephone encounter Note * Telephone Encounter - Masha Basurto RN - 2024 9:28 AM EDT Vm left to call and speak with the nurse [facility]05-24-2024 Telephone encounter Note* Telephone Encounter - Masha Basurto RN - 02/10/2024 11:13 AM EDT Vm left to call and speak with the nurse [facility]05-15-2024 Telephone encounter Note* Telephone Encounter - Masha Basurto RN - 02/01/2024 2:58 PM EDT Vm left to call and speak with a nurse [facility]05-10-2024 Telephone encounter Note* Telephone Encounter - Erika Morillo APRN.MARCEL - 01/27/2024 4:50 PM EDT Does patient have an acute outbreak right now? I don't see this has even been addressed by Dr. Nicole. He may need evaluation. Thanks, Erika Morillo APRN.FIELD LOGISTICS COORDINATOR Covering for Peggy Nicole DO [facility] Work Phone: [phone] Telephone encounter Note* Telephone Encounter - Neda Pulido RN - 01/27/2024 2:16 PM EDT Images from the original note were not included. [facility] (supporting Peggy Nicole DO)46 minutes ago (1:29 PM) CAROLINA Richmond, I think I have had a stash of this medication since before you began as my Primary Care. I don't see it on the list in MyChart nor in my history with [facility]. Normally that would be a good thing since itindicates I haven't needed it. But now I do. Can I get a prescription for either the 500mg or 1g dosage to a new pharmacy? I've relocated. The closest pharmacy that is open after 5pm today and on the weekends is [facility] at [address] [place] [address]. Thank you, Sloan [facility]05-10-2024 Telephone encounter Note* Telephone Encounter - eNda Pulido RN - 01/27/2024 2:15 PM EDT See nurse triage note [facility]05-10-2024 Miscellaneous Notes* Telephone Encounter - Neda Pulido RN - 01/27/2024 2:15 PM EDT See nurse triage note documented in this encounterNationwide Children'S Hospital04-29-2024 Nurse Note* Neda Rush MA - 01/16/2024 3:23 PM EDT Ambulatory Ear Lavage Pre-treatment: Warm water Treatment: Left ear Equipment and Irrigation solution and Volume used: Single use syringe with single use irrigation tip Water Return flow appearance: Brown Patient tolerated procedure: yes Tympanic membrane assessment: Tympanic membrane assessed by LIP pre and post procedure Neda Rush MA [facility]04-29-2024 Nurse Note* Neda Rush MA - 01/16/2024 3:23 PM EDT Ambulatory Ear Lavage Pre-treatment: Warm water Treatment: Left ear Equipment and Irrigation solution and Volume used: Single use syringe with single use irrigation tip Water Return flow appearance: Brown Patient tolerated procedure: yes Tympanic membrane assessment: Tympanic membrane assessed by LIP pre and post procedure Neda Rush MA documented in this encounterNationwide Children'S Hospital04-29-2024 NoteHNO ID: [id number] Author: KWADWO SPIVEY APRN.FIELD LOGISTICS COORDINATOR Service: ? Author Type: Nurse Practitioner Type: Progress Notes Filed: 01/16/2024 15:37 Note Text: This note was created using Exit41riter. Subjective Sloan Harvey is a 53 year [...] which he will follow-up with. Kwadwo Spivey APRN.[facility]04-29-2024 History of Present illness Narrative* Kwadwo Spivey APRN.[facility] - 01/16/2024 3:00 PM EDT This note was created using Exit41riter. Subjective Sloan Handor is a 53 year [...] which he will follow-up with. Kwadwo Spivey APRN.FIELD LOGISTICS COORDINATOR documented in this encounterNationwide Children'S Hospital04-01-2024 Consult note Author Mely Mendoza [facility] December 19, 2023 10:09am Note Date/Time December 19, 2023 10:0 9am [facility] Medical Records Department [address] [place] [address] Counseling Note - Pharmacy 12/19/23 1009 MR#: [id number] Acct: [id number] Name: SLOAN HARVEY Rep #:[id number] : 1970 53 From: Mely Mendoza PCP: Care Physician,No Primary Status :ADM IN Y Location: [address] Med Reconciliation Pharmacy Service has performed discharge [...] Signature (if applicable): Date CC: ~ Signed [facility] Work Phone: 1(442) 518-527204-01-2024 Discharge summary Author Umang Bassett [facility] December 19, 2023 9:01am Note Date/Time December 19, 2023 9:00 am [facility] Medical Records Department [address] [place] [address] Discharge Summary 12/19/23 0858 MR#: [id number] Acct: [id number] Name: EVELINSLOAN JOHNNT Rep #:[id number] : 1970 53 From: Umang Bassett MD PCP: Care Physician,No Primary Status :ADM IN Location: [place] [address] Providers Date of Admission: 12/17/23 Date of [...] Self Care Charges/Coding Visit Charges Inpatient E&M: 46878 Disch Hosp >30min 12/19/23 0901 <Electronically signed by Umang Bassett MD> Cosigner Signature (if applicable): CC: Dr. Umang Bassett MD; No Primary Care Physician~ Signed [facility] Work Phone: 1(896) 770-637803-31-2024 Progress note Author Anatoly Peck [facility] December 18, 2023 10:01am Note Date/Time December 18, 2023 10: 01am [facility] Medical Records Department [address] [place] [address] Progress Note - Hospitalist 12/18/23 0958 MR#: [id number] Acct: [id number] Name: SLOAN HARVEY Rep #:[id number] : 1970 53 From: Anatoly Peck DO PCP: Care Physician,No Primary Status :ADM IN Location: [place] [address] Reason for Visit Reason for Visit: Diagnoses [...] % (Auto) 61.8, Lymph % (Auto) 25.3, [place] % (Auto) 9.2, Eos % (Auto) 2.5, [...] he will be seen by addiction social services manager tomorrow #2 chronic alcoholism-complicates care, management, recovery, [...] 35- minute Charges/Coding Visit Charges Inpatient E&M: 06188 Subs Hosp L2 12/18/23 1001 <Electronically signed by Anatoly Peck DO> Cosigner Signature (if applicable): CC: ~ Signed [facility] Work Phone: 1(454) 503-312203-31-2024 Discharge summary Author Sloan Gonzalez [facility] December 17, 2023 10:36pm Note Date/Time December 17, 2023 1:5 4pm [facility] Medical Records Department [address] [place] [address] Emergency Department Summary 12/17/23 MR#: [id number] Acct: [id number] Name: GOODDANNYSLOAN HAWLEY HIREN Rep #:[id number] : 1970 53 From: Sloan Werner PCP: Care Physician,No Primary Status :ADM IN Location: [address] HPI <ROSA Araya - Last Filed: [...] of any chronic health conditions. [facility] <ROSA Araya - Last Filed: 12/17/23 15:58> [facility] Medical History (Updated 12/17/23 @ 15:58 by [...] <ROSA Araya - Last Filed: 12/17/23 15:58> [facility] Narrative Medical decision making narrative: Patient presenting [...] % (Auto) 61.8 Lymph % (Auto) 25.3 [place] % (Auto) 9.2 Eos % (Auto) 2.5 [...] Gonzalez, DO - Last Filed: 12/17/23 15:51> [facility] Lab Data Attestation: I reviewed the patient's lab results. Labs: Laboratory Results - last 24 hr 12/17/23 12/17/23 14:20 14:25 WBC 6.5 RBC 4.90 Hgb 14.9 Hct 44.5 MCV 90.8 MCH 30.4 MCHC 33.5 RDW Std Deviation 49.9 H RDW Coeff of Jacy 15.1 H Plt Count 241 MPV 9.0 Immature Gran % (Auto) 0.300 Neut % (Auto) 61.8 Lymph % (Auto) 25.3 [place] % (Auto) 9.2 Eos % (Auto) 2.5 [...] Polysubstance abuse Disposition Disposition: Acute Care [facility] What to do if you have Problems For any increased pain, shortness of breath, bleeding, nausea or vomiting, chestpain, or any unexpected problems, contact your Primary Care Provider. Call [facility] ([phone]) or report to the closest Emergency Room. Call 911 if necessary. 12/17/23 2236 <Electronically signed by Sloan Gonzalez DO> Cosigner Signature (if applicable): 12/17/23 1558 <Electronically signed by Lucretia LEE> CC: No Primary Care Physician ~ Signed [facility] Work Phone: 1(976) 539-520303-30-2024 History and physical note Author Sloan Villalobos [facility] December 17, 2023 4:18pm Note Date/Time December 17, 2023 4:1 4pm [facility] Medical Records Department [address] [place] [address] H&P Exam - Hospitalist 12/17/23 1611 MR#: [id number] Acct: [id number] Name: SLOAN HARVEY Rep #:[id number] : 1970 53 From: Sloan Villalobos DO PCP: Care Physician,No Primary Status :ADM IN Location: [place] [address] HPI - General General Date of Service: [...] go through this withdrawal program here at [facility] before enrolling intothe residential program. Patient's last drink was this morning where he had a few drinks. Currently he has no withdrawal symptoms. [facility] Medical History Anxiety Depression Hypertension [...] % (Auto) 61.8, Lymph % (Auto) 25.3, [place] % (Auto) 9.2, Eos % (Auto) 2.5, [...] observation status. Charges/Coding Visit Charges Inpatient E&M: 30635 Init Hosp L2 12/17/23 1618 <Electronically signed by Sloan Villalobos DO> Cosigner Signature (if applicable): CC: Dr. Sloan Villalobos DO; No Primary Care Physician~ Signed [facility] Work Phone: 1(304) 700-315902-13-2024 Miscellaneous Notes* Telephone Encounter - Angela Rosenberg [...] 11:01 AM 11:01 AM documented in this encounterNationwide Children'S Hospital02-01-2024 Miscellaneous Notes* Telephone Encounter - Angela Rosenberg MA - 10/20/2023 11:41 AM EST Items addressed in this encounter: Refill Encounter Patient med request was sent on 09/29/23 with refills Called to update patient he will check with [facility] Angela Rosenberg MA October 20, 2023 11:47 AM 11:47 AM documented in this encounterNationwide Children'S Hospital01-18-2024 NoteHNO ID: [id number] Author: ANGELA ROSENBERG MA Service: ? Author Type: Precision Filer Hand Type: Progress Notes Filed: 10/06/2023 17:49 Note Text: Items addressed in this encounter: Virtual Visit Pre Check In Attempted to reach patient no answer LVM on both lines Angela Rosenberg MA October 06, 2023 10:46 AM 10:46 AM Items addressed in this encounter: Virtual Visit Pre Check In 2nd attempt both lines no answer Angela Rosenberg MA October 06, 2023 1:13 PM 1:13 [facility]01-18-2024 NoteHNO ID: [id number] Author: PEGGY NICOLE DO Service: ? Author Type: Physician Type: Progress Notes Filed: 10/06/2023 17:49 Note Text: Telemedicine Visit - Distance Health Virtual Visit Note Patient seen on NoWait Video Visit platform. Location of patient: [place] PCP: Peggy Nicole DO History of Present [...] 10/01/2023 - Has been in rehab at [facility] - Would eventually like to go back to [place] HTN: - On Amlodipine 5 mg once [...] visit. 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 Electronically Signed: Peggy Nicole DO. [facility]01-13-2024 NoteHNO ID: [id number] Author: NOTE, INTERFACE, ? Service: ? Author Type: ? Type: Progress Notes Filed: 10/01/2023 02:24 Note Text: Epic Scheduled Downtime: 10/01/2023 1:00:00 AM to 10/01/2023 2:04:22 [facility]11-29-2023 Miscellaneous Notes* Telephone Encounter - Jasmine Jennings MA - 08/17/2023 1:26 PM EST NOV 08/30/23 SIVA 07/11/23 [facility] Patient electronically sent a request for the following prescription(s) Requested Prescriptions Pending Prescriptions Disp Refills DULoxetine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 Medical History Anxiety Depression Hypertension [...] % (Auto) 61.8, Lymph % (Auto) 25.3, [place] % (Auto) 9.2, Eos % (Auto) 2.5, [...] folate * Patient has been working with [employer] and the plan is for him to [...] observation status. Charges/Coding Visit Charges Inpatient E&M: 08227 Init Hosp L2 12/17/23 1618 <Electronically signed by Sloan Villalobos DO> Cosigner Signature (if applicable): CC: Dr. Sloan Villalobos DO; No Primary Care Physician~ Signed [facility] Work Phone: History and physical note Author Samantha Leung [facility] Note Date/Time February 15, 2025 5:49p m [facility] Medical Records Department [address] [place] [address] H&P Exam - Hospitalist 02/15/25 1742 MR#: [id number] Acct: [id number] Name: SLOAN HARVEY Rep #:[id number] : [...] no other drug use. Previously admitted to [facility] for detoxification about 14 months back, [...] % (Auto) 66.2, Lymph % (Auto) 23.7, [place] % (Auto) 6.9, Eos % (Auto) 1.9, [...] #Alcohol use disorder - Monitoring based on CIAR protocol - Symptom management using gabapentin, dicyclomine, hydroxyzine, Zofran - Thiamine supplementation - Lorazepam taper #Nicotine dependence - Nicotine patches ordered #Acute alcoholic hepatitis - AST ALT both are elevated - Monitor PT/INR # Depression - Continue home medications # HTN - Continue amlodipine # DVT - Low risk - Encourage mobilization # CODE -Full code 02/15/25 2648 <Electronically signed by Samantha Leung MD> Cosigner Signature (if applicable): CC: Dr. Samantha Leung MD; Dr. Peggy Nicole DO~ Signed [facility] Work Phone: Procedure note No Information to Report [facility] [employer] Progress note No Information to Report [facility] [employer] 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 Advance Directives and Living Will Power of Peg Driver Documents on File Type Date Recorded 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 Advance Directives and Living Will Advance Directives and Living Will 08/29/2019 10:59 AM 08/29/19 - No Ad Power of Peg Driver Latest Code Status on File Code Status Date Activated Date Inactivated Comments Full Code 08/29/2019 10:03 AM Documents on File Type Date Recorded 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 Advance Directives and Living Will Advance Directives and Living Will 08/29/2019 10:59 AM 08/29/19 - No Ad Power of Peg Driver Latest Code Status on File Code Status Date Activated Date Inactivated Comments Full Code 08/29/2019 10:03 AM 08/30/2019 12:57 AM Documents on File Type Date Recorded 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 Advance Directives and Living Will Power of Peg Driver Advance Directives and Living Will 08/29/2019 10:59 AM 08/29/19 - No Ad Documents on File Type Date Recorded 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 Advance Directives and Living Will Documents on File Type Date Recorded 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 No February 15, 2025 4:06pm Advance Directive Response Recorded Date/ Time Do you have a Healthcare Power of Peg Driver? No February 15, 2025 6:28pm Discharge Instructions * Attachments The following attachments cannot be sent through Care Everywhere. * Mood Disorders: General Info ([place]ian [place]) documented in this encounter* Instructions* Negrita Zamora, PT, DPT - 08/20/2019 After Hours Care Information Please dial 911 or report to the closest emergency department for emergencies outside of the department s normal business hours. For non-emergency questions or concerns, the patient may call the office on the next business day at [phone] or call the [facility] NurseLine at [phone] or . When to stay home: We [...] including impetigo, ringworm, unexplained rashes, or shingles [place] eye or any other illness that may be given to other therapy participants or therapists Severe respiratory infections, sore throat, severe colds or flu Blood pressure above 160/100 While under the influence of alcohol, non-prescribed/recreational drug(s), or illegal substance(s) If you have any questions regarding whether you should attend therapy, please call your therapist at [phone]. The Rehab staff reserves the right to [...] is needed, please call Resource Counseling at [phone] or [phone]. documented in this encounter* Instructions* Regina Bearden [...] have a regular appointment scheduled with your cuff folder, the hospital nurse will make an appointment for you prior to discharge. ? If you do not have a regular appointment scheduled with your primary care physician, the hospitalnurse will make an appointment for you prior to discharge. IF YOU HAVE A PACEMAKER or DEFIBRILLATOR: o You will need routine device clinic checks with your cuff folder approximately every 3-6 months.If you do not receive an appointment to have your device checked within 3 months after the device is implanted, please contact your cuff folder. o Replacement of the generator is performed [...] your doctor if you can take an vyga-alx-egmccml medicine. If you think your pain medicine [...] Where can you learn more? Go to [email or web address] Enter G817 in the search box to learn more about Sedation for a Medical Procedure: Care Instructions. Current as of: August 31, 2018 Content Version: 12.3 [id number] ViSSee. Care instructions adapted under license by your healthcare professional. If you have questions about a medical condition or this instruction, always ask your healthcare professional. [employer] disclaims any warranty or liability for your use of this information. documented in this encounter* Attachments The following attachments cannot be sent through Care Everywhere. * Mabry ([place]ian [place]) documented in this encounter* Attachments The following attachments cannot be sent through Care Everywhere. * Supraventricular Tachycardia ([place]) documented in this encounter* Attachments The following attachments cannot be sent through Care Everywhere. * Depression: Treatment ([place]) documented in this encounter Assessments Diagnosis Mood [...] Complete - 24 Hour Karrie Willis PA [address] [place] [address] Heart Vascular Diag [address] [place] [address] Status Reason Specialty Diagnoses / Procedures Referred By Contact Referred To Contact Closed Heart and Vascul ar Diagnostics Diagnoses SVT (supraventricular tachycardia) (HCC) Procedures Echocardiogram complete (M-Mode/2D) Karrie Willis PA [address] [place] [address] Heart Vascular Diag [address] [place] [address] Status Reason Specialty Diagnoses / Procedures Referred By Contact Referred To Contact Closed Heart and Vascul ar Diagnostics Diagnoses Bradycardia with 41-50 beats per minute Procedures Cardiac Event Monitor - 30 Day Karrie Willis PA [address] [place] [address] Heart Vascular Diag [address] [place] [address] Specialty Diagnoses / Procedures Referred By Contac t Referred To Contact Orthopedic Surgery Diagnoses Plantar fasciitis of right foot Pes planus, unspecified laterality Peroneal tendonitis, right Linda, Thomas Jeffery, [address] [place] [address] Andre Duong, ASHLEY [address] [place] [address] [place] [address] Referral ID Status Reason Start Date Expiration Date V isits Requested Visits Authorized [id number] Authorized 09/07/2021 09/07/2022 1 1 Specialty Diagnoses / Procedures Referred By Contac t Referred To Contact Ent - Otolaryngology Diagnoses Ear drainage, unspecified laterality Procedures CONSULT TO ENT OFFICE/OUTPATIENT [facility] 60-74 MINUTES Dae Mari APRN.FIELD LOGISTICS COORDINATOR [address] [place] [address] Referral ID Status Reason Start Date Expiration Date Visits Requested Visits Authorized [id number] Authorized PCP Requested Referral 02/16/2023 02/16/2024 1 1 Specialty Diagnoses / Procedures Referred By Contac t Referred To Contact [facility] [place] Diagnoses H/O spinal fusion DDD (degenerative disc disease), lumbar Procedures CONSULT TO [facility] OFFICE/OUTPATIENT [facility] 60-74 MINUTES Peggy Nicole, [address] [place] [address] Referral ID Status Reason Start Date Expiration Date Visits Requested Visits Authorized [id number] Authorized PCP Requested Referral 04/19/2023 04/18/2024 1 1 Specialty Diagnoses / Procedures Referred By Contac t Referred To Contact Podiatry Diagnoses Plantar fasciitis, bilateral Procedures CONSULT TO PODIATRY OFFICE/OUTPATIENT [facility] 60-74 MINUTES Peggy Nicole, [address] [place] [address] Referral ID Status Reason Start Date Expiration Date Visits Requested Visits Authorized [id number] Authorized PCP Requested Referral 06/07/2023 06/06/2024 1 1 Specialty Diagnoses / Procedures Referred By Contac t Referred To Contact [facility] [place] Diagnoses DDD (degenerative disc disease), lumbar Procedures CONSULT TO [facility] OFFICE/OUTPATIENT [facility] 60 MINUTES Peggy Nicole, [address] [place] [address] Referral ID Status Reason Start Date Expiration Date Visits Requested Visits Authorized [id number] Authorized PCP Requested Referral 04/04/2024 04/04/2025 1 1 Hospital Course * Ananda Zhang MD - 08/29/2019 1:34 PM EST DISCHARGE SUMMARY Clinical Cardiac Electrophysiology [facility] Sloan Harvey [id number] 1970 49 y.o. Admit Date: 08/29/2019 Discharge [...] related to the procedure, please contact the [facility] EP clinic at [phone]. Plan: 1. Discharge to home. 2. Follow-up with Electrophysiology as scheduled, in about 1 month. Thank you for allowing me to participate in the care of Mr. Harvey. Please call with questions. Ananda Zhang M.D., [facility] Clinical Cardiac Electrophysiology [facility] Heart and [facility] [place] Office: [phone] 08/29/2019 1:34 PM documented in this encounter [...] DATE CREATED AUTHOR AUTHOR'S ORGANIZ ATION 03/15/2018 [facility] DATE CREATED AUTHOR AUTHOR'S ORGANIZ ATION 07/02/2018 [facility] DATE CREATED AUTHOR AUTHOR'S ORGANIZ ATION 10/13/2021 [facility] DATE CREATED AUTHOR AUTHOR'S ORGANIZ ATION 10/15/2021 [facility] DATE CREATED AUTHOR AUTHOR'S ORGANIZ ATION 10/15/2021 [facility] DATE CREATED AUTHOR AUTHOR'S ORGANIZ ATION 08/11/2023 [facility] DATE CREATED AUTHOR AUTHOR'S ORGANIZ ATION 10/03/2023 [facility] DATE CREATED AUTHOR AUTHOR'S ORGANIZ ATION 10/25/2023 [facility] DATE CREATED AUTHOR AUTHOR'S ORGANIZ ATION 07/28/2024 [facility] DATE CREATED AUTHOR AUTHOR'S ORGANIZ ATION 04/13/2025 [facility] [place] [facility] Reason for Visit (unrecogniz ed section and content) Reason Comments Psychiatric Evaluation Other Medical Clearance [facility] Status Reason Specialty Diagnoses / Procedures Referred By Contact Referred To Contact Closed Heart and Vascul ar Diagnostics Diagnoses SVT (supraventricular tachycardia) (HCC) Procedures Holter Monitor Complete - 24 Hour Karrie Willis PA [address] [place] [address] Heart Vascular Diag [address] [place] [id number] Reason Comments Outpatient Physical Therapy Status Reason Specialty Diagnoses / Procedures Referred By Contact Referred To Contact Authorized Physical Therapy Diagnoses Chronic low back pain, unspecified back pain laterality, unspecified whether sciatica present Karrie Willis PA [address] [place] [address] Negrita Zamora, PT, DPT Status Reason Specialty Diagnoses / Procedures Re ferred By Contact Referred To Contact Diagnoses SVT (supraventricular tachycardia) ([facility]) Procedures WA EPHYS EVAL W/ABLATION SUPRAVENT ARRHYTHMIA INTRACARD ECHOCARD W/THER/DX IVNTJ INCL IMG S&I WA INTRACARDIAC ELECTROPHYSIOLOGIC 3D MAPPING PROGRAMMED STIMJ&PACG AFTER IV DRUG NFS WA COMPRE ELECTROPHYSIOL XM W/LEFT ATRIAL PACNG/REC Ananda Zhang MD [address] [place] [address] Daniel Rosenbaum MD [address] [place] [address] Reason Comments Medication Refill Reason Comments Information or Advice only Reason Comments Burn Status Reason Specialty Diagnoses / Procedures Referred By Contact Referred To Contact Closed Heart and Vascul ar Diagnostics Diagnoses SVT (supraventricular tachycardia) (HCC) Procedures Echocardiogram complete (M-Mode/2D) Karrie Willis PA [address] [place] [address] Heart Vascular Diag [address] [facility] [address] Status Reason Specialty Diagnoses / Procedures Referred By Contact Referred To Contact Closed Heart and Vascul ar Diagnostics Diagnoses Bradycardia with 41-50 beats per minute Procedures Cardiac Event Monitor - 30 Day Karrie Willis PA [address] [place] [address] Heart Vascular Diag [address] [place] [address] Reason Comments Irregular Heart Beat Reason Comments [...] Peroneal tendonitis, right Wion, Thomas Jeffery, [address] [place] [address] Andre Duong, DPM [address] [place] [address] Referral ID Status Reason Start Date Expiration Date Visits Re quested Visits Authorized [id number] Closed 09/07/2021 09/07/2022 1 1 Reason Comments Pain Fracture Toe Pain New problem left 5th MT fx Reason Comments Establish Care Reason Onset Date Comments Medication Refill 11/18/2021 Reason Comments New Patient Establish care. Bila teral ear wax ( would like to have flushed) Reason Comments Consult ENT #[id number] Reason Comments Referral Request Establish Care WHITNEY [...] 60-74 MINUTES Alecia Bess LISW [address] [place] [address] Referral ID Status Reason Start Date Expiration Date Visits Requested Visits Authorized [id number] Pending Review PCP Requested Referral 07/21/2023 07/20/2024 [...] lower tooth absces s x2 days Danica aGming RN - 12/22/2020 6:09 PM EDSirisha Winchester RN - 12/22/2020 5:37 PM EDTErika Mckeon RN - 12/22/2020 5:03 PM EDTBAde shelton RN - 12/22/2020 4:10 PM EDT ED Notes (unrecognized secti on and content) This RN called and spoke with Andre at [facility], he states that they are ready for patient. Eliel Asencio states pt has been approved to go [facility], pending negative covid, will fax over the paperwork Called Crisis center they are working on pt admission This RN faxed ER summary, labs and psych ease RN note to [facility]. This RN called [facility] at [phone] and spoke to Janis. She reports once she receives the fax, she will call their Crisis Counselor body shop floorperson and will call ER to complete Crisis [...] go there until he can get into [facility] for treatment. ED Diagnosis and Summary 1. Depression, unspecified depression type 2. History of alcohol abuse ED Summary Medical screening evaluation, including screening blood work and urine testing, is unremarkable. The patient is depressed but not suicidal. He wants to go to crisis and eventually to [facility] for rehab but I am told that [facility] will not have a bed for at least another day, maybe two. Will ask psych nurse to facilitate evaluation for the crisis center. History Chief Complaint Patient presents with Alcohol Problem 50M, history of ethanol abuse, had been clear for about 8 months but recently relapsed, presents with depression. 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 Will come back to meet with pt. Shortly. Pt calling [facility] at this time to see if they [...] St art: February 16, 2025 Dr. Vu Jean MD Attending Provider Active Start: February 16, [...] Provider Active Start: February 17, 2025 Dr. Samantah Leung MD Admit Provider Active St art: February 17, 2025 Dr. Samantha Leung MD Other Provider Active St art: February 17, 2025 Dr. Vu Jean MD Attending Provider Active Start: February 17, 2025 Dr. Vu Jean MD Other Provider Active Sta rt: February 17, 2025 Twist Maker Relationship Specialty Start Date End Date No, Physician [facility] PCP - General 06/19/21 Twist Maker Relationship Specialty Start Date End Date No, Physician [facility] PCP - General 06/19/21 Twist Maker Relationship Specialty Start Date End Date Alda Maria MD [address] [place] [address] PCP - General Family Medicine 10/14/21 Twist Maker Relationship Specialty Start Date End Date Alda Maria MD [address] [place] [address] PCP - General Family Medicine 10/14/21 Twist Maker Relationship Specialty Start Date End Date Alda Maria MD [address] [place] [address] PCP - General Family Medicine 10/14/21 Twist Maker Relationship Specialty Start Date End Date Alda Maria MD [address] [place] [address] PCP - General Family Medicine 10/14/21 Twist Maker Relationship Specialty Start Date End Date Dae Mari APRN.FIELD LOGISTICS COORDINATOR [address] [place] [address] PCP - General Family Medicine 02/16/23 Twist Maker Relationship Specialty Start Date End Date Dae Mari APRN.FIELD LOGISTICS COORDINATOR [address] [place] [address] PCP - General Family Medicine 02/16/23 Twist Maker Relationship Specialty Start Date End Date Peggy Nicole, [address] [place] [address] PCP - General Family Medicine 04/19/23 Twist Maker Relationship Specialty Start Date End Date Peggy Nicole DO [address] [place] [address] PCP - General Family Medicine 04/19/23 Twist Maker Relationship Specialty Start Date End Date Peggy Nicole DO [address] [place] [address] PCP - General Family Medicine 04/19/23 Twist Maker Relationship Specialty Start Date End Date Peggy Nicole DO [address] [place] [address] PCP - General Family Medicine 04/19/23 Twist Maker Relationship Specialty Start Date End Date Peggy Nicole DO [address] [place] [address] PCP - General Family Medicine 04/19/23 Twist Maker Relationship Specialty Start Date End Date Peggy Nicole DO [address] [place] [address] PCP - General Family Medicine 04/19/23 Twist Maker Relationship Specialty Start Date End Date Peggy Nicole DO [address] [place], [place] [address] PCP - General Family Medicine 04/19/23 Twist Maker Relationship Specialty Start Date End Date Peggy Nicole DO [address] [place] [address] PCP - General Family Medicine 04/19/23 Twist Maker Relationship Specialty Start Date End Date Peggy Nicole DO [address] [place] [address] PCP - General Family Medicine 04/19/23 Twist Maker Relationship Specialty Start Date End Date Peggy Nicole DO [address] [place] [address] PCP - General Family Medicine 04/19/23 Twist Maker Relationship Specialty Start Date End Date Peggy Nicole DO [address] [place] [address] PCP - General Family Medicine 04/19/23 Team [...] Dr. Anatoly Peck DO Other Provider Active Twist Maker Relationship Specialty Start Date End Date Peggy Nicole DO [address] [place] [address] PCP - General Family Medicine 04/19/23 Twist Maker Relationship Specialty Start Date End Date Peggy Nicole DO [address] [place] [address] PCP - General Family Medicine 04/19/23 Twist Maker Relationship Specialty Start Date End Date Peggy Nicole DO [address] [place] [address] PCP - General Family Medicine 04/19/23 Team [...] or prosecute any alcohol or drug abuse patient.[facility] HospitalIn the event this information is protected by the Federal Confidentiality of Alcohol and Drug Abuse Patient Records regulations: The Federal rules restrict any use of the information to criminally investigate or prosecute any alcohol or drug abuse patient.[facility] HospitalIn the event this information is protected by the Federal Confidentiality of Alcohol and Drug Abuse Patient Records regulations: The Federal rules restrict any use of the information to criminally investigate or prosecute any alcohol or drug abuse patient.[facility] HospitalIn the event this information is protected by the Federal Confidentiality of Alcohol and Drug Abuse Patient Records regulations: The Federal rules restrict any use of the information to criminally investigate or prosecute any alcohol or drug abuse patient.[facility] HospitalIn the event this information is protected by the Federal Confidentiality of Alcohol and Drug Abuse Patient Records regulations: The Federal rules restrict any use of the information to criminally investigate or prosecute any alcohol or drug abuse patient.[facility] HospitalIn the event this information is protected by the Federal Confidentiality of Alcohol and Drug Abuse Patient Records regulations: The Federal rules restrict any use of the information to criminally investigate or prosecute any alcohol or drug abuse patient.[facility] HospitalIn the event this information is protected by the Federal Confidentiality of Alcohol and Drug Abuse Patient Records regulations: The Federal rules restrict any use of the information to criminally investigate or prosecute any alcohol or drug abuse patient.[facility] HospitalIn the event this information is protected by the Federal Confidentiality of Alcohol and Drug Abuse Patient Records regulations: The Federal rules restrict any use of the information to criminally investigate or prosecute any alcohol or drug abuse patient.[facility] HospitalIn the event this information is protected by the Federal Confidentiality of Alcohol and Drug Abuse Patient Records regulations: The Federal rules restrict any use of the information to criminally investigate or prosecute any alcohol or drug abuse patient.[facility] HospitalIn the event this information is protected by the Federal Confidentiality of Alcohol and Drug Abuse Patient Records regulations: The Federal rules restrict any use of the information to criminally investigate or prosecute any alcohol or drug abuse patient.[facility] HospitalIn the event this information is protected by the Federal Confidentiality of Alcohol and Drug Abuse Patient Records regulations: The Federal rules restrict any use of the information to criminally investigate or prosecute any alcohol or drug abuse patient.[facility] HospitalIn the event this information is protected by the Federal Confidentiality of Alcohol and Drug Abuse Patient Records regulations: The Federal rules restrict any use of the information to criminally investigate or prosecute any alcohol or drug abuse patient.[facility] HospitalIn the event this information is protected by the Federal Confidentiality of Alcohol and Drug Abuse Patient Records regulations: The Federal rules restrict any use of the information to criminally investigate or prosecute any alcohol or drug abuse patient.[facility] HospitalIn the event this information is protected by the Federal Confidentiality of Alcohol and Drug Abuse Patient Records regulations: The Federal rules restrict any use of the information to criminally investigate or prosecute any alcohol or drug abuse patient.[facility] HospitalIn the event this information is protected by the Federal Confidentiality of Alcohol and Drug Abuse Patient Records regulations: The Federal rules restrict any use of the information to criminally investigate or prosecute any alcohol or drug abuse patient.[facility] HospitalIn the event this information is protected by the Federal Confidentiality of Alcohol and Drug Abuse Patient Records regulations: The Federal rules restrict any use of the information to criminally investigate or prosecute any alcohol or drug abuse patient.[facility] HospitalIn the event this information is protected by the Federal Confidentiality of Alcohol and Drug Abuse Patient Records regulations: The Federal rules restrict any use of the information to criminally investigate or prosecute any alcohol or drug abuse patient.[facility] HospitalIn the event this information is protected by the Federal Confidentiality of Alcohol and Drug Abuse Patient Records regulations: The Federal rules restrict any use of the information to criminally investigate or prosecute any alcohol or drug abuse patient.[facility] HospitalIn the event this information is protected by the Federal Confidentiality of Alcohol and Drug Abuse Patient Records regulations: The Federal rules restrict any use of the information to criminally investigate or prosecute any alcohol or drug abuse patient.[facility] HospitalIn the event this information is protected by the Federal Confidentiality of Alcohol and Drug Abuse Patient Records regulations: The Federal rules restrict any use of the information to criminally investigate or prosecute any alcohol or drug abuse patient.[facility] HospitalIn the event this information is protected by the Federal Confidentiality of Alcohol and Drug Abuse Patient Records regulations: The Federal rules restrict any use of the information to criminally investigate or prosecute any alcohol or drug abuse patient.[facility] HospitalIn the event this information is protected by the Federal Confidentiality of Alcohol and Drug Abuse Patient Records regulations: The Federal rules restrict any use of the information to criminally investigate or prosecute any alcohol or drug abuse patient.[facility] HospitalIn the event this information is protected by the Federal Confidentiality of Alcohol and Drug Abuse Patient Records regulations: The Federal rules restrict any use of the information to criminally investigate or prosecute any alcohol or drug abuse patient.[facility] HospitalIn the event this information is protected by the Federal Confidentiality of Alcohol and Drug Abuse Patient Records regulations: The Federal rules restrict any use of the information to criminally investigate or prosecute any alcohol or drug abuse patient.[facility] HospitalIn the event this information is protected by the Federal Confidentiality of Alcohol and Drug Abuse Patient Records regulations: The Federal rules restrict any use of the information to criminally investigate or prosecute any alcohol or drug abuse patient.[facility] Goals (unrecognized section and content) Goals may [...] BE BASED ON THE PRIMARY CLINICAL RECORDS. [email or web address] [facility]. provides no warranty or guarantee of the accuracy or completeness of information in this document.
[2025-04-20 23:25] LABS: Magnesium 1.9 mg/dL (1.5-2.2)
[2025-04-21] VITALS: BMI 35.5
[2025-04-21] MEDS: MELATONIN 3 MG TABLET PO ×2 (00:22→20:32)
[2025-04-21] MEDS: hydrOXYzine PAM 25 MG Capsule 50 MG PO ×2 (00:22→20:32)
[2025-04-21] MEDS: 0.9% Normal Saline (1000mL) 1,000 ML 125 ML IV ×2 (00:23→09:19)
[2025-04-21 00:35] LABS: Barbiturate Urine NEGATIVE (< 200 ng/mL); Benzodiazepine Urine NEGATIVE (< 200 ng/mL); PCP Urine NEGATIVE (< 25 ng/mL); THC Urine NEGATIVE (< 50 ng/mL)
[2025-04-21 03:58] VITALS: BP 144/97; PULSE 86; RESP 18; TEMP 36.4; O2SAT 94
[2025-04-21 04:55] LABS: Hematocrit 40.2 % (40-54); Hemoglobin 13.8 g/dL (13.0-16.5); Immature Granulocytes Count 0.030 X10^3/uL (0.0-0.0); Mean Corp Hgb Conc 34.3 g/dL (32-36); Mean Corpuscular Volume 90.3 fL (80-94); Mean Platelet Vol. 9.1 fl (6.2-12.0); NRBC Flagged by Analyzer 0 % (0-5); Platelet Count 207 K/mm3 (150-450); RBC Distribution Width CV 12.6 % (11.6-14.6); RBC Distribution Width SD 41.6 fl (35.1-43.9); Red Blood Count 4.45 M/mm3 (4.6-6.2); White Blood Count 6.8 K/mm3 (4.4-11.0)
[2025-04-21 05:13] LABS: Prothrombin Time (Protime)PT. 14.2 SECONDS (11.7-14.9)
[2025-04-21 05:22] LABS: AST(SGOT) 96 U/L (<=37); Alanine Aminotransfer ALT/SGPT 84 U/L (<=46); Albumin, Serum 3.8 g/dL (3.5-5.0); Alkaline Phosphatase 124 U/L (40-129); Anion Gap 13 (5-15); BUN 9 mg/dL (4-19); BUN/Creat Ratio 12.2 RATIO (10-20); Calcium,Total 8.8 mg/dL (7.6-11.0); Carbon Dioxide 21.0 mmol/L (21.0-32.0); Chloride 104 mmol/L (98-108); Estimated Creatinine Clearance 141.79 ml/min (50-250); Globulin 2.7 g/dL (2.2-4.2); Glucose 97 mg/dL (70-99); Potassium 3.2 mmol/L (3.3-5.1)
[2025-04-21 05:46] VITALS: BMI 35.4
--- NOTE | 2025-04-21 07:23 | PN.HOSP_ITS ---
Reason for Visit Chief Complaint: Requesting EtOH Detox. Subjective Subjective Patient states he is feeling okay. Just a bit anxious. No specific complaints at this time. States he was homeless prior to presentation. Had gone through detox previously and ended up back in the living environment where people were using so he started drinking again. He does realize the importance to get into a better living environment. He states that he does have family that are willing to accept him temporarily until he can get housing situated but wants to go through detox before going there. I did discuss with him that we have case management social work talk to him tomorrow to help with resources and 180 would see him tomorrow to help reestablish outpatient programming. Objective Data Objective Data Vital Signs: Vital Signs Temp Pulse Resp BP Pulse Ox O2 Del Method 97.6 F L 86 18 144/97 H 94 Room Air 04/21/25 03:58 04/21/25 03:58 04/21/25 03:58 04/21/25 03:58 04/21/25 03:58 04/21/25 03:58 Oxygen Delivery Method Room Air Weight: 112.3 kg Body Mass Index (BMI) 35.4 Intake & Output: Intake and Output for Last 24 Hours 04/19/25 04/20/25 04/21/25 23:59 23:59 23:59 Intake Total 300 / 300 Balance 300 / 300 Lab / Micro Data 04/21/25 04:14 04/21/25 04:14 Labs: Laboratory Results - last 24 hr 04/20/25 21:27: WBC 10.0, RBC 4.83, Hgb 14.9, Hct 43.5, MCV 90.1, MCH 30.8, MCHC 34.3, RDW Std Deviation 42.0, RDW Coeff of Jacy 12.7, Plt Count 249, MPV 9.0, Immature Gran % (Auto) 0.400, Neut % (Auto) 63.0, Lymph % (Auto) 20.1, Licking % (Auto) 6.3, Eos % (Auto) 8.9 H, Baso % (Auto) 1.3 H, Absolute Neuts (auto) 6.3, Absolute Lymphs (auto) 2.01, Nucleated RBC % 0, Sodium 139, Potassium 3.6, Chloride 99, Carbon Dioxide 25.6, Anion Gap 15, BUN 10, Creatinine 1.07, Estim Creat Clear Calc 96.71, Est GFR (MDRD) Non-Af 81, BUN/Creatinine Ratio 9.5 L, G lucose 117 H, Calcium 9.5, Magnesium 1.9, Total Bilirubin 0.80, AST 117 H, ALT 99 H, Alkaline Phosphatase 130 H, Total Protein 7.7, Albumin 4.5, Globulin 3.2, Albumin/Globulin Ratio 1.4, Ethyl Alcohol 124.0 H 04/20/25 23:38: Urine Opiates Screen NEGATIVE, U Buprenorphine Qual NEGATIVE, Ur Oxycodone Screen NEGATIVE, Urine Methadone Screen NEGATIVE, Urine Fentanyl Screen NEGATIVE, Ur Barbiturates Screen NEGATIVE, Ur Phencyclidine Scrn NEGATIVE, Ur Amphetamines Screen NEGATIVE, U Benzodiazepines Scrn NEGATIVE, Urine Cocaine Screen NEGATIVE, U Cannabinoids Screen NEGATIVE 04/21/25 04:14: WBC 6.8, RBC 4.45 L, Hgb 13.8, Hct 40.2, MCV 90.3, MCH 31.0, MCHC 34.3, RDW Std Deviation 41.6, RDW Coeff of Jacy 12.6, Plt Count 207, MPV 9.1, Immature Gran % (Auto) 0.400, Neut % (Auto) 59.2, Lymph % (Auto) 23.3, Licking % (Auto) 7.0, Eos % (Auto) 9.2 H, Baso % (Auto) 0.9, Absolute Neuts (auto) 4.0, Absolute Lymphs (auto) 1.57, Nucleated RBC % 0, PT 14.2, INR 1.1, Sodium 138, P otassium 3.2 L, Chloride 104, Carbon Dioxide 21.0, Anion Gap 13, BUN 9, Creatinine 0.73, Estim Creat Clear Calc 141.79, Est GFR (MDRD) Non-Af 107, BUN/Creatinine Ratio 12.2, Glucose 97, Calcium 8.8, Phosphorus 4.5, Total Bilirubin 0.73, AST 96 H, ALT 84 H, Alkaline Phosphatase 124, Total Protein 6.5, Albumin 3.8, Globulin 2.7, Albumin/Globulin Ratio 1.4, TSH 4.140 Physical Exam Const alert, oriented x3, no apparent distress and well nourished Constitutional Narrative: Obese, middle-aged, white male, very pleasant, sitting up eating breakfast, nontoxic-appearing, looks comfortable HEENT head/scalp atraumatic and moist oral mucous membranes Head and Scalp: normocephalic Neuro moves all extremities and no focal motor deficits Speech: speech normal Psych affect normal Psych Narrative: Very pleasant, interacts appropriately Assessment & Plan Assessment/Plan (1) Alcohol abuse: (2) Desire for detoxification: PLAN: Plan Alcohol abuse with pending withdrawal - Patient has been sober previously but went back to his living environment that was not appropriate and relapsed - Currently homeless but does have plans for discharge - Continue phenobarbital taper - Continue thiamine and folate - Continue as needed medication for symptom management associated withdrawal - 180 consultation for assistance with outpatient follow-up - Social work/case management consult Homelessness - Social work/case management consult for assistance Hypokalemia - P.o. replacement For recheck in a.m. Open check a magnesium level History of polysubstance abuse - Alcohol, methamphetamines, cannabis - Recommend cessation of all substances History of alcohol hepatitis - LFTs not markedly elevated at this time Essential hypertension - Continue home amlodipine Osteoarthritis -continue home ibuprofen Depression/anxiety - Continue home duloxetine - Continue home BuSpar - Continue home hydroxyzine DVT prophylaxis - Continue enoxaparin CODE STATUS - Full code Charges/Coding Visit Charges Inpatient E&M: 83645 [facility] Hosp L1
[2025-04-21] MEDS: Potassium Chloride Oral Tablet 20 MEQ 60 MEQ PO (09:15)
[2025-04-21] MEDS: Thiamine Hydrochloride 100 MG Tablet PO (09:17)
[2025-04-21 16:18] VITALS: BP 127/76; PULSE 70; RESP 18; TEMP 36.8; O2SAT 93
[2025-04-21 20:30] VITALS: BP 122/56; PULSE 76; RESP 16; TEMP 36.9; O2SAT 96
[2025-04-21] MEDS: Fluticasone 0.05% 1 SPRAY NASAL.SRY 2 SPRAY NASAL (20:38)
[2025-04-22 00:31] VITALS: BP 124/73; PULSE 74; RESP 16; TEMP 36.6; O2SAT 93
[2025-04-22 04:51] VITALS: BP 132/83; PULSE 79; RESP 16; TEMP 36.7; O2SAT 94
[2025-04-22 06:00] VITALS: BMI 34.5
[2025-04-22] MEDS: Thiamine Hydrochloride 100 MG Tablet PO (07:59)
[2025-04-22 08:02] LABS: Magnesium 2.1 mg/dL (1.5-2.2)
[2025-04-22 08:04] LABS: Anion Gap 11 (5-15); BUN 6 mg/dL (4-19); BUN/Creat Ratio 8.2 RATIO (10-20); Calcium,Total 9.1 mg/dL (7.6-11.0); Carbon Dioxide 25.3 mmol/L (21.0-32.0); Chloride 102 mmol/L (98-108); Estimated Creatinine Clearance 129.37 ml/min (50-250); Glucose 104 mg/dL (70-99); Potassium 4.1 mmol/L (3.3-5.1)
[2025-04-22 08:14] VITALS: BP 113/78; PULSE 70; RESP 16; TEMP 36.5; O2SAT 96
--- NOTE | 2025-04-22 10:55 | ADDICTION ---
Met w/pt to complete RAMP assessments. Pt has an appointment for the psychiatrist at [facility] that he would like to attend.Pt will also receive an appointment for his current clinician at [facility] and Case Management to help with resources.
[2025-04-22 11:43] VITALS: BP 109/69; PULSE 69; RESP 16; TEMP 36.8; O2SAT 95
--- NOTE | 2025-04-22 14:56 | PCM.PN.HOSP ---
Reason for Visit Chief Complaint: Requesting EtOH Detox. Subjective Subjective Patient states overall he is feeling much better. Has an appointment tomorrow at 180 for prescriptions. I do feel he will be medically stable by that point in time so we will plan for discharge tomorrow morning as long as nothing changes. Objective Data Objective Data Vital Signs: Vital Signs Temp Pulse Resp BP Pulse Ox O2 Del Method 98.3 F 69 16 109/69 95 Room Air 04/22/25 11:43 04/22/25 11:43 04/22/25 11:43 04/22/25 11:43 04/22/25 11:43 04/22/25 14:09 Oxygen Delivery Method Room Air Weight: 109.5 kg Body Mass Index (BMI) 34.5 Intake & Output: Intake and Output for Last 24 Hours 04/20/25 04/21/25 04/22/25 23:59 23:59 23:59 Intake Total 3650 / 3850 800 / 800 Balance 3650 / 3850 800 / 800 Lab / Micro Data 04/21/25 04:14 04/22/25 06:58 Labs: Laboratory Results - last 24 hr 04/22/25 06:58: Sodium 138, Potassium 4.1, Chloride 102, Carbon Dioxide 25.3, Anion Gap 11, BUN 6, Creatinine 0.79, Estim Creat Clear Calc 129.37, Est GFR (MDRD) Non-Af 104, BUN/Creatinine Ratio 8.2 L, Glucose 104 H, Calcium 9.1, Phosphorus 3.4, Magnesium 2.1 Physical Exam Const alert, oriented x3, no apparent distress and well nourished Constitutional Narrative: Obese, middle-aged, white male, lying in bed sleeping but awakens easily, appears comfortable, nontoxic, interacts appropriately General Appearance: cooperative HEENT normocephalic, head/scalp atraumatic and hearing grossly normal bilaterally GI GI Narrative: Obese. Neuro moves all extremities and no focal motor deficits Speech: speech normal Psych affect normal Psych Narrative: Very pleasant, interacts appropriately Assessment & Plan Assessment/Plan (1) Alcohol abuse: (2) Desire for detoxification: PLAN: Plan Alcohol abuse with pending withdrawal - Patient has been sober previously but went back to his living environment that was not appropriate and relapsed - Currently homeless but does have plans for discharge - Continue phenobarbital taper - Continue thiamine and folate - Continue as needed medication for symptom management associated withdrawal - 180 consultation for assistance with outpatient follow-up - Social work/case management following - Anticipate discharge tomorrow Homelessness - Social work/case management consult for assistance Hypokalemia - Resolved History of polysubstance abuse - Alcohol, methamphetamines, cannabis - Recommend cessation of all substances History of alcohol hepatitis - LFTs not markedly elevated at this time Essential hypertension - Continue home amlodipine Osteoarthritis -continue home ibuprofen Depression/anxiety - Continue home duloxetine - Continue home BuSpar - Continue home hydroxyzine DVT prophylaxis - Continue enoxaparin CODE STATUS - Full code Charges/Coding Visit Charges Inpatient E&M: 21979 [facility] Hosp L1
--- NOTE | 2025-04-22 15:43 | CASEMGMT ---
Brief Social Work Note Date: 04/22/25 Time: 3651 Sw presented to bedside and introduced self to patient. Patient completed Social Determinants of Health. It is noted that patient is currently homeless, living out of his vehicle when he is unable to afford a nights stay at a hotel. Due to patient's homelessness, he is also facing food insecurities from time to time. Patient states that he has gotten assistance in the past, and then has relapsed which has caused him to lose the support he was connected to. Patient also states that there may be a small possibility that family may allow him to stay with them temporarily until he gets connected to resources that can help him more group home. Carmencita Ward, SEISMIC OBSERVER, [employer]
[2025-04-22 15:49] VITALS: BP 129/82; PULSE 72; RESP 16; TEMP 36.6; O2SAT 95
[2025-04-22 20:34] VITALS: BP 148/88; PULSE 78; RESP 16; TEMP 36.8; O2SAT 96
[2025-04-22] MEDS: MELATONIN 3 MG TABLET PO (21:34)
[2025-04-22] MEDS: hydrOXYzine PAM 25 MG Capsule 50 MG PO (21:34)
[2025-04-23 03:48] VITALS: BMI 34.8
[2025-04-23 05:19] VITALS: BP 138/72; PULSE 72; RESP 16; TEMP 36.8; O2SAT 96
--- NOTE | 2025-04-23 07:40 | PCM.DC.SUM ---
Providers Date of Admission: 04/20/25 Primary Care Physician: Dr. Juanis Vazquez, DO Reason For Visit: ETOH DETOX Diagnosis Discharge Diagnosis (1) Alcohol abuse: Status: Acute Code(s): F10.10 - Alcohol abuse, uncomplicated (2) Desire for detoxification: Status: Acute Plan Alcohol abuse with pending withdrawal - Patient has been sober previously but went back to his living environment that was not appropriate and relapsed - Currently homeless but does have plans for discharge - Continue phenobarbital taper - Continue thiamine and folate - Continue as needed medication for symptom management associated withdrawal - 180 consultation for assistance with outpatient follow-up - Social work/case management following - Anticipate discharge tomorrow Homelessness - Social work/case management consult for assistance Hypokalemia - Resolved History of polysubstance abuse - Alcohol, methamphetamines, cannabis - Recommend cessation of all substances History of alcohol hepatitis - LFTs not markedly elevated at this time Essential hypertension - Continue home amlodipine Osteoarthritis -continue home ibuprofen Depression/anxiety - Continue home duloxetine - Continue home BuSpar - Continue home hydroxyzine DVT prophylaxis - Continue enoxaparin CODE STATUS - Full code Medications at Discharge Home Medications amlodipine 5 mg tablet 5 mg PO DAILY 12/17/23 buspirone 10 mg tablet 10 mg PO TID 12/17/23 duloxetine 60 mg capsule,delayed release 60 mg PO DAILY 12/17/23 hydroxyzine pamoate 25 mg capsule 50 mg PO TID PRN anxiety 12/17/23 ibuprofen 600 mg tablet 600 mg PO TID PRN pain 12/17/23 duloxetine 30 mg capsule,delayed release 30 mg PO QHS 02/15/25 Medical Records Data Homelessness:: Unsheltered Weight / BMI Weight Weight: 110.3 kg Body Mass Index (BMI) 34.8 ABG / Lab / Microbiology Data 04/21/25 04:14 04/22/25 06:58 Laboratory: Laboratory Results - last 24 hr 04/22/25 06:58: Sodium 138, Potassium 4.1, Chloride 102, Carbon Dioxide 25.3, Anion Gap 11, BUN 6, Creatinine 0.79, Estim Creat Clear Calc 129.37, Est GFR (MDRD) Non-Af 104, BUN/Creatinine Ratio 8.2 L, Glucose 104 H, Calcium 9.1, Phosphorus 3.4, Magnesium 2.1 D/C Instructions Discharge Activity: Return to Normal Activity DC O2, CPAP, BIPAP Needs Home O2 Discharge instructions: No Meaningful Use Info Meaningful Use Meaningful Use Diagnoses (Choose all that apply): None applicable Discharge Plan Admission Admit Date/Time: 04/20/25 22:25 Primary Reason for Your Visit: EtOH detox Attending Provider: Cristina Salas Primary Care Provider: Juanis Vazquez Consulting Providers: Umang Arias Instructions Additional Instructions / Restrictions: 1. Please follow-up with 180 today as already scheduled and as recommended by addiction liaison Discharge Orders/Prescriptions Prescriptions: Continued amlodipine 5 mg tablet 5 mg PO DAILY ibuprofen 600 mg tablet 600 mg PO TID PRN (Reason: pain) Patient Comments: PT ONLY TAKES 1-2 TIMES A DAY hydroxyzine pamoate 25 mg capsule 50 mg PO TID PRN (Reason: anxiety) duloxetine 60 mg capsule,delayed release(DR/EC) 60 mg PO DAILY buspirone 10 mg tablet 10 mg PO TID duloxetine 30 mg capsule,delayed release(DR/EC) 30 mg PO QHS Referrals / Follow Up: Juanis Vazquez DO [Primary Care Provider] - See Referral Note (As needed) Disposition Disposition (needs filled in before D/C Order can be placed): Home, Self Care
[2025-04-23 08:00] VITALS: BP 138/93; PULSE 70; RESP 16; TEMP 36.7; O2SAT 99
[2025-04-23] MEDS: Thiamine Hydrochloride 100 MG Tablet PO (08:47)
--- NOTE | 2025-04-23 09:28 | PHA.DC.MR.R ---
Pharmacy [facility] Reconciliation Pharmacy Service has performed discharge medication reconciliation for this patient. The patient's discharge medication list was reviewed for discrepancies and discrepancies were resolved. Medications at Discharge Home Medications amlodipine 5 mg tablet 5 mg PO DAILY 12/17/23 buspirone 10 mg tablet 10 mg PO TID 12/17/23 duloxetine 60 mg capsule,delayed release 60 mg PO DAILY 12/17/23 hydroxyzine pamoate 25 mg capsule 50 mg PO TID PRN anxiety 12/17/23 ibuprofen 600 mg tablet 600 mg PO TID PRN pain 12/17/23 duloxetine 30 mg capsule,delayed release 30 mg PO QHS 02/15/25
--- NOTE | 2025-04-23 11:14 | PCM.DC.SUM ---
Providers Date of Admission: 04/20/25 Date of Discharge: 04/23/25 Primary Care Physician: Dr. Juanis Vazquez DO Reason For Visit: ETOH DETOX Diagnosis Discharge Diagnosis (1) Alcohol abuse: Status: Acute Code(s): F10.10 - Alcohol abuse, uncomplicated (2) Desire for detoxification: Status: Acute Plan Alcohol abuse with pending withdrawal - Patient has been sober previously but went back to his living environment that was not appropriate and relapsed - Currently homeless but does have plans for discharge - Continue phenobarbital taper - Continue thiamine and folate - Continue as needed medication for symptom management associated withdrawal - 180 consultation for assistance with outpatient follow-up - Social work/case management following - Anticipate discharge tomorrow Homelessness - Social work/case management consult for assistance Hypokalemia - Resolved History of polysubstance abuse - Alcohol, methamphetamines, cannabis - Recommend cessation of all substances History of alcohol hepatitis - LFTs not markedly elevated at this time Essential hypertension - Continue home amlodipine Osteoarthritis -continue home ibuprofen Depression/anxiety - Continue home duloxetine - Continue home BuSpar - Continue home hydroxyzine DVT prophylaxis - Continue enoxaparin CODE STATUS - Full code Medications at Discharge Home Medications amlodipine 5 mg tablet 5 mg PO DAILY 12/17/23 buspirone 10 mg tablet 10 mg PO TID 12/17/23 duloxetine 60 mg capsule,delayed release 60 mg PO DAILY 12/17/23 hydroxyzine pamoate 25 mg capsule 50 mg PO TID PRN anxiety 12/17/23 ibuprofen 600 mg tablet 600 mg PO TID PRN pain 12/17/23 duloxetine 30 mg capsule,delayed release 30 mg PO QHS 02/15/25 Hospital Course Operations None Procedures None Summary of Care Provided Minutes Spent on Discharge: 25 Hospital Course: Patient is a 55-year-old white male who presents emergency department [facility] on 04/20/2025 requesting detox from alcohol. Patient is currently drinking about 1-2/5 of vodka a day and has been doing so over the last 5 years punctuated by brief periods of sobriety. He also admits to cannabis use. He stated he was recently admitted and discharged but his living environment was not supportive enough and he relapsed. He states he has family that is willing to take him and his he is currently homeless. Over the last 2 weeks has been living out of his car. His family will take him and only if he is sober so he decided come the emergency department to get help. Patient reported he is trying to decrease the amount of alcohol he is drinking but alcohol level on the day of admission was 124 and he was complaining of intermittent hallucinations. His last drink prior to admission was on the evening of admission. He was admitted to the medical floor and placed on a phenobarbital taper, thiamine folate, and supportive medications for withdrawal symptoms. He was seen by [facility] and is already established at [facility] with outpatient care. He also follows with psychiatry there. They prescribed his psychiatric medications for him. His overall withdrawal was uneventful. By the a.m. of 04/23/2025 he was doing fairly well from a withdrawal standpoint CIWA was low. He had a psychiatry appointment on the day of discharge he was anxious to get there so we were able to discharge him home with outpatient follow-up at [facility] for IOP and psychiatry on 04/23/2025 he was seen by case management to assist with his living arrangements. Discharge diagnoses: Acute alcohol withdrawal Alcohol abuse Homelessness Hypokalemia-resolved History of polysubstance abuse History of alcohol hepatitis Essential hypertension Osteoarthritis Depression Anxiety Physical Exam Const alert, oriented x3, no apparent distress, no limitations, healthy appearing and well nourished Constitutional Narrative: Obese, middle-aged, white male, lying in bed sleeping but awakens easily, appears comfortable, nontoxic, interacts appropriately General Appearance: cooperative, comfortable, well kempt and well developed Exam Limitations: no limitations Nutritional Appearance: obese HEENT normocephalic, head/scalp atraumatic, hearing grossly normal bilaterally and moist oral mucous membranes Resp normal respiratory effort, no retractions, no use of accessory muscles and clear to auscultation bilaterally Cardio regular rate, regular rhythm, S1 normal heart sound, S2 normal heart sound, no murmurs, no rub, no gallops and no clicks GI normal to inspection, nondistended, normoactive bowel sounds, soft to palpation and non-tender GI Narrative: Obese. Extremity no clubbing, cyanosis or edema Skin Skin Narrative: Patient has evidence of rash, abscess, wounds or jaundice. Neuro moves all extremities and no focal motor deficits Speech: speech normal Psych affect normal Psych Narrative: Very pleasant, interacts appropriately Medical Records Data Homelessness:: Unsheltered Weight / BMI Weight Weight: 110.3 kg Body Mass Index (BMI) 34.8 ABG / Lab / Microbiology Data 04/21/25 04:14 04/22/25 06:58 D/C Instructions Discharge Activity: Return to Normal Activity DC O2, CPAP, BIPAP Needs Home O2 Discharge instructions: No Meaningful Use Info Meaningful Use Meaningful Use Diagnoses (Choose all that apply): None applicable Discharge Plan Admission Admit Date/Time: 04/20/25 22:25 Primary Reason for Your Visit: EtOH detox Attending Provider: Cristina Salas Primary Care Provider: Juanis Vazquez Consulting Providers: Umang Arias Instructions Additional Instructions / Restrictions: 1. Please follow-up with 180 today as already scheduled and as recommended by addiction liaison Discharge Orders/Prescriptions Prescriptions: Continued amlodipine 5 mg tablet 5 mg PO DAILY ibuprofen 600 mg tablet 600 mg PO TID PRN (Reason: pain) Patient Comments: PT ONLY TAKES 1-2 TIMES A DAY hydroxyzine pamoate 25 mg capsule 50 mg PO TID PRN (Reason: anxiety) duloxetine 60 mg capsule,delayed release(DR/EC) 60 mg PO DAILY buspirone 10 mg tablet 10 mg PO TID duloxetine 30 mg capsule,delayed release(DR/EC) 30 mg PO QHS Referrals / Follow Up: Juanis Vazquez DO [Primary Care Provider] - See Referral Note (As needed) Disposition Disposition (needs filled in before D/C Order can be placed): Home, Self Care Charges/Coding Visit Charges Inpatient E&M: 78329 [facility]ch Hosp
== END 2025-04-23 10:34 | disposition home or self-care (01) | DRG 775 ==
LOC: ED 21:55 → MS3 22:43
PROVIDERS: Physician Assistant; Admitting Provider Internal Medicine; Emergency Provider Emergency Medicine; PCP Family Medicine; Visit Provider Internal Medicine
DX: F10.130 Alcohol abuse with withdrawal, uncomplicated (principal); Z59.02 Unsheltered homelessness; F15.10 Other stimulant abuse, uncomplicated; I10 Essential (primary) hypertension; F32.A Depression, unspecified; E66.812 Obesity, class 2; F10.120 Alcohol abuse with intoxication, uncomplicated; E87.6 Hypokalemia; F17.210 Nicotine dependence, cigarettes, uncomplicated; F12.10 Cannabis abuse, uncomplicated; M19.90 Unspecified osteoarthritis, unspecified site; F41.9 Anxiety disorder, unspecified; Y90.6 Blood alcohol level of 120-199 mg/100 ml; Z68.35 Body mass index [BMI] 35.0-35.9, adult; Z79.899 Other long term (current) drug therapy; Z86.19 Personal history of other infectious and parasitic diseases
CPT/HCPCS: 36415; 80048; 80053; 80307; 82077; 83735; 84100; 84443; 85025; 85610; 99283; A4216

== ENCOUNTER 2025-05-05 16:20 | Inpatient (IN) | payer MEDICAID, SELFPAY ==
[2025-05-05] VITALS (10 sets, daily range): BP systolic 130–149; BP diastolic 80–95; PULSE 78–97; RESP 12–18; TEMP 36.1–36.6; O2SAT 88–98; BMI 35.0; BMI 35.3
--- NOTE | 2025-05-05 16:54 | EX.ED.SAOD ---
HPI History of Present Illness Chief Complaint: ETOH Intox Informant: patient Onset/Context/Timing Onset: Today Context: Gradual Onset Timing: Continuous Worsened by: In the morning Relieved by: Alcohol Associated Symptoms Associated Symptoms: Positive for vomiting*, tremor and palpatations; Negative for diarrhea*, fever*, rash*, seizure, suicidal ideation or homicidal ideation Narrative Narrative: Patient presents requesting detox from alcohol. Patient states he drinks 1-2 fifths of alcohol per day. Patient states his last drink was approximately 1 hour prior to arrival. Patient was recently admitted for detox. Patient completed his detox treatment in the hospital. Patient states he relapsed shortly after being discharged. Patient admits to some nausea and vomiting. Patient states this is worse in the morning and better after he starts drinking. Patient also admits to some tremors but denies any seizures. Patient also admits to some palpitations. Patient denies any suicidal homicidal ideations. Patient denies any fevers or chills. [facility] Medical History Depression with anxiety Obesity (BMI 30-39.9) Tobacco abuse Polysubstance abuse Anxiety Depression Hypertension Home Medications ?Medication ?Instructions ?Recorded ?Last Taken ?Type amlodipine 5 mg tablet 5 mg PO DAILY 12/17/23 05/05/25 History buspirone 10 mg tablet 10 mg PO TID 12/17/23 05/05/25 History duloxetine 60 mg capsule,delayed 60 mg PO DAILY 12/17/23 05/05/25 History release hydroxyzine pamoate 25 mg capsule 50 mg PO TID PRN anxiety 12/17/23 02/15/25 History ibuprofen 600 mg tablet 600 mg PO TID PRN pain 12/17/23 02/15/25 History duloxetine 30 mg capsule,delayed 30 mg PO QHS 02/15/25 05/04/25 History release Allergy/AdvReac Type Severity Reaction Status Date / Time No Known Allergies Allergy Verified 05/05/25 16:21 Family History Other Alcoholism Social History Smoking Status: Current every day smoker tobacco type: cigarettes Smokeless tobacco user: other substance use type: marijuana and amphetamines ROS ROS ED Constitutional Constitutional ED: Denies chills or fever(s) Eyes Eyes: Denies blurry vision or change in vision ENT ENT ED: Reports rhinorrhea; Denies sore throat Cardiovascular Cardiovascular: Denies chest pain or palpitations Respiratory/Chest Respiratory/Chest: Reports dyspnea; Denies cough Gastrointestinal Gastrointestinal: Reports nausea and vomiting Genitourinary Genitourinary ED: Denies dysuria or hematuria Musculoskeletal Musculoskeletal: Denies back pain or neck pain Integumentary Denies abscess or rash Neurologic Neurologic: Reports headache(s); Denies weakness Allergic/Immunologic Allergic/Immunologic ED: Denies mouth swelling or urticaria EXAM Physical Exam Const Vital Signs: 05/05/25 16:21 05/05/25 17:21 05/05/25 18:00 Temperature 96.9 F L Temperature Source Temporal Pulse Rate 97 87 81 Respiratory Rate 14 18 Blood Pressure 130/80 H 142/95 H Blood Pressure Mean 96 110 Pulse Ox 98 88 Oxygen Delivery Method Room Air Room Air Oxygen Flow Rate (L/min) 05/05/25 18:30 05/05/25 18:49 05/05/25 18:59 Temperature Temperature Source Pulse Rate 80 78 Respiratory Rate 18 12 Blood Pressure 135/83 H Blood Pressure Mean 100 Pulse Ox 93 Oxygen Delivery Method Nasal Cannula Nasal Cannula Oxygen Flow Rate (L/min) 2 2 05/05/25 19:00 Temperature Temperature Source Pulse Rate Respiratory Rate Blood Pressure 135/83 H Blood Pressure Mean 100 Pulse Ox 94 Oxygen Delivery Method Nasal Cannula Oxygen Flow Rate (L/min) 2 Positive well nourished and well developed General Appearance ED: well developed and NAD HEENT Reports moist mucous membranes atraumatic Neck supple and no JVD Resp normal respiratory effort and clear to auscultation bilaterally Cardio regular rate and regular rhythm GI soft to palpation, non-tender and non-distended Neuro oriented x3, CN's II-XII intact bilaterally and no sensory deficits noted [place] Coma Scale: document GCS findings Spontaneous Obeys Commands Oriented 15 Sensorium / Orientation: alert Speech: speech normal Motor Exam: strength 5/5 throughout Psych mental status grossly normal MDM MDM MDM Narrative Medical decision making narrative: Medical screening labs will be obtained. CBC will be obtained to assess for leukocytosis and anemia. Comprehensive metabolic profile will be obtained to assess for hepatic function, renal function, and electrolyte abnormality. Lipase will be obtained to assess for pancreatitis. Serum alcohol level will be obtained to assess for alcohol intoxication. Urine drug screen will be obtained to assess for substance abuse. Lab Data Attestation: I reviewed the patient's lab results. Lab results narrative: CBC was reviewed and was within normal limits. Comprehensive metabolic profile was reviewed. Glucose was mildly elevated at 201. AST was 116 and ALT was 79. The remainder is within normal limits. Lipase was reviewed and was normal at 23. Serum alcohol level was reviewed and was elevated at 110. Urine drug screen was reviewed and was positive for barbiturates and cannabinoids. D-dimer was reviewed and was normal at 0.30. Labs: Laboratory Results - last 24 hr 05/05/25 05/05/25 05/05/25 17:15 18:32 19:15 WBC 7.7 RBC 4.70 Hgb 14.3 Hct 42.7 MCV 90.9 MCH 30.4 MCHC 33.5 RDW Std Deviation 43.2 RDW Coeff of Jacy 13.2 Plt Count 234 MPV 8.9 Immature Gran % (Auto) 0.400 Neut % (Auto) 61.9 Lymph % (Auto) 20.8 [place] % (Auto) 4.2 Eos % (Auto) 11.4 H Baso % (Auto) 1.3 H Absolute Neuts (auto) 4.8 Absolute Lymphs (auto) 1.60 Nucleated RBC % 0 D-Dimer Quant (PE/DVT) 0.30 Sodium 142 Potassium 3.3 Chloride 101 Carbon Dioxide 22.6 Anion Gap 19 H BUN 7 Creatinine 0.86 Estim Creat Clear Calc 119.49 Est GFR (MDRD) Non-Af 102 BUN/Creatinine Ratio 8.0 L Glucose 201 H Calcium 9.4 Total Bilirubin 0.53 AST 116 H ALT 79 H Alkaline Phosphatase 114 Total Protein 7.5 Albumin 4.1 Globulin 3.4 Albumin/Globulin Ratio 1.2 Lipase 23 Urine Opiates Screen NEGATIVE U Buprenorphine Qual NEGATIVE Ur Oxycodone Screen NEGATIVE Urine Methadone Screen NEGATIVE Urine Fentanyl Screen NEGATIVE Ur Barbiturates Screen PRESUMPTIVE POSITIVE Ur Phencyclidine Scrn NEGATIVE Ur Amphetamines Screen NEGATIVE U Benzodiazepines Scrn NEGATIVE Urine Cocaine Screen NEGATIVE U Cannabinoids Screen PRESUMPTIVE POSITIVE Ethyl Alcohol 110.0 H Radiography Chest X-Ray - ED: 2 View, Read by ED Physician, Read by Radiologist and No Acute Disease Diagnostic Testing: Clinical Impression(s) from Imaging Studies Chest X-Ray 05/05/25 18:38 IMPRESSION: No acute pulmonary disease. Reading Location: [facility] and lateral chest x-ray was obtained. There are 2 views. On my independent interpretation, lung mccray are clear. There is normal cardiac silhouette. Bony thorax is normal. There is no acute process noted. Radiologist also interpreted the x-ray and agrees. Treatment and Re-Evaluation Narrative: Patient was requesting admission for detox from alcohol. While patient was in the emergency department, his oxygen saturation dropped to 88% on room air. Patient was started on oxygen at 2 L by nasal cannula. Because of this, chest x-ray was obtained to assess for pneumonia and bronchitis. D-dimer was obtained to assess for pulmonary embolism. Patient was given a DuoNeb aerosol. Case was discussed with the hospitalist. She will admit the patient to her service. Patient understood and was agreeable with the plan. All questions were answered. Discharge Plan Triage Chief Complaint: ETOH Intox ED Provider: Luca Gonzalez Dx/Rx/DC Orders Clinical Impression: Alcohol withdrawal, Desire for detoxification, Hypoxia Prescriptions: No Action amlodipine 5 mg tablet 5 mg PO DAILY ibuprofen 600 mg tablet 600 mg PO TID PRN (Reason: pain) Patient Comments: PT ONLY TAKES 1-2 TIMES A DAY hydroxyzine pamoate 25 mg capsule 50 mg PO TID PRN (Reason: anxiety) duloxetine 60 mg capsule,delayed release(DR/EC) 60 mg PO DAILY buspirone 10 mg tablet 10 mg PO TID duloxetine 30 mg capsule,delayed release(DR/EC) 30 mg PO QHS Primary Care Provider: Juanis Vazquez Referrals: Juanis Vazquez DO [Primary Care Provider] - Print Language: Yoruba Disposition Disposition: Acute Care Hospital [facility]
--- OUTSIDE RECORDS SUMMARY | 2025-05-05 17:06 | XMS RPT_ITS | CCD ---
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 Ponce Referring Provider Israel HOWE, Dr. Ponce Emergency Provider [phone] Bonnie HOWE, Dr. Olivarez Primary Care Provider Madhu CORREA, Dr. Singh Admit Provider Unavailab donnie Leung MD, Dr. Singh Attending Provider Cheryle Leung MD, Dr. Singh Other Provider Unavailab donnie Cespedes MD, Dr. Tammy Chandler Attending Provider Ted CORREA, Dr. Womack Other Provider Madhu CORREA, Dr. Singh Attending Provider Cheryle Jean MD, Dr. Womack Attending Provider Rubina CORREA, Dr. Tammy Chandler Other Provider Dr. Alfa Bcekham MD Emergency Provider Arias DO, Dr. Heck Admit Provider Unavail able Dr. Umang Arias DO Attending Provider Briav ailable Dr. Umang Arias DO Other Provider Unavail able Dr. Cristina Salas DO Attending Provider Dr. Cristina Salas DO Other Provider Samantha Leung Attending Unavailable Peggy Nicole Primary Care Unavailable Israel Remus Referring Unavailable Jan Mayo Attending Unavailable Care Physician, No Primary Referring Unava ilable Care Physician, No Primary Primary Care Unava ilable Hakan Leungintya Consulting Unavailable Leung, Achintya Admitting Unavailable Bonnie, Peggy Primary Care Unavailable Ungur, Remus Referring Unavailable Vu Jean Attending Unavailable Vu Jean Consulting Unavailable Tammy Cespedes Attending Unavailable Tammy Cespedes Consulting Unavailable Bonnie, Peggy Primary Care Unavailable Umang Arias Admitting Unavailable Umang Arias Attending Unavailable Umang Arias Consulting Unavailable Cristina Salas Attending Unavailable Cristina Salas Consulting Unavailable Tammy Cespedes Attending Unavailable Samantha Leung Consulting Unavailable Leung, Achintya Admitting Unavailable Bonnie, Peggy Primary Care Unavailable Ungur, Remus Referring Unavailable Vu Jean Consulting Unavailable Umang Arias Consulting Unavailable Umang Arias Admitting Unavailable Cristina Salas Attending Unavailable Bonnie, Peggy Primary Care Unavailable Medications Current Medications Medication Drug Class(es) [...] Start: 04-27-2020 take 1 tablet by heath every six hours as needed for pain [...] on above: Take 1 tablet by heath once daily. amoxicillin 875 mg oral tablet [...] Start: 12-17-2023 [facility] capsule [facility] daily Duloxetine 60 mg capsule,delayed [...] once daily. Take 1 capsule by [facility] daily. hydrOXYzine hydrochloride 25 mg oral tablet (20 sources) Antihistamine Start: 04-04-20 24 take 1 tablet by mouth every eight [...] injection (5 sources) Opioid Antagonist Star t: 03-19- 24 inject 380 mg by intramuscular injection every month naltrexone ER (VIVITROL) 380 mg injection Inject 380 mg intramuscularly once every month. 04/04/2024 Active naproxen 500 mg oral tablet (5 sources) Nonsteroidal Anti-inflammatory Drug Star t: 09-19 22 take 1 tablet by mouth twice daily at mealtime naproxen (Naprosyn) 500 MG tablet Take 1 (one) tablet (500 mg total) by mouth 2 (two) times a day with meals . 60 tablet 2 10/01/2021 Active 2 ml ondansetron 2 mg/ml injection (1 source) Serotonin-3 Receptor Antagonist Star t: 08-19 19 ondansetron hcl (ZOFRAN) injection 4 mg penicillin v potassium 500 mg oral tablet (6 sources) Star t: 12-06 20 take 1 tablet by mouth four times daily penicillin v potassium (VEETID) 500 MG tablet Take 1 tablet by mouth 4 times daily. 40 tablet 0 10/22/2019 Active predniSONE 10 mg oral tablet (1 source) Star t: 08-20 21 End: 08-20 21 predniSONE (DELTASONE) 10 [...] mg/ml injection (3 sources) Star t: 08-19 19 0.9% NaCl infusion Start: 08-29-2019 Sodium Chlorid [...] Acute cerebrovascular disease Onset: 06-11-2017 Administrative/social admission (5 sources) Administrative reason for encounter; Translations: [Encounter for other administrative examinations] 06-05-2024 Episodic Alcohol-related disorders (20 sources) Alcohol abuse with intoxication, uncomplicated; Translations: [Alcohol dependence] Onset: 06-11-2017 07-04-2019 Chronic Alcohol-related disorders (16 sources) History of alcohol abuse; Translations: [Alcohol intoxication] Onset: 04-29-2025 12-17-2023 Episodic Anxiety disorders (16 sources) Mixed anxiety and depressive disorder; Translations: [...] Otorrhea; Translations: [Otorrhea, unspecified ear] Episodic Other liver diseases (4 sources) Enzyme level - finding; Translations: [Elevated transaminase measurement] 04-20-2025 Episodic Other nervous system disorders (3 sources) Aphasia; Translations: [Aphasia] Onset: 06-11-2017 Chronic Other nutritional; endocrine; and metabolic disorders (4 sources) Body mass index 30+ - obesity; Translations: [Obesity, unspecified] 04-20-2025 Chronic Other nutritional; endocrine; and metabolic disorders (1 source) Obesity, unspecified; Translations: [Obesity, unspecified] Onset: 04-29-2025 Chronic Other screening for suspected conditions (not mental disorders or infectious disease) (2 sources) Patient encounter status; Translations: [Encounter for screening for malignant neoplasm of colon] 04-19-2023 Episodic Residual codes; unclassified (4 sources) Tobacco user; Translations: [Tobacco use] 04-20-2025 Episodic Residual codes; unclassified (1 source) Tobacco use; Translations: [Tobacco use] Onset: 04-29-2025 Episodic Spondylosis; intervertebral disc disorders; other back problems (2 sources) Degeneration of lumbar intervertebral disc; Translations: [Other intervertebral disc degeneration, lumbar region] 04-19-2023 Chronic Substance-related disorders (15 sources) Tobacco dependence caused by cigarettes; Translations: [Nicotine dependence, cigarettes, with other nicotine-induced disorders] Onset: 02-18-2025 06-07-2023 Chronic Unclassified (2 sources) Aphasia / R47.01(ICD-10) Onset: 06-27-2017 Unclassified (2 sources) Diplopia / H53.2(ICD-10) Onset: 06-27-2017 Unclassified (1 source) Aphasia / [id number]() Onset: 06-11-2017 Unclassified (1 source) Unknown / UNK(Unknown) Onset: 06-11-2017 Unclassified (2 sources) Patient encounter status; Translations: [Pre-op testing] Unclassified (6 sources) Readiness finding 02-15-2025 Unclassified (1 source) As needed Unclassified (1 source) Elevation of levels of liver transaminase levels; Translations: [Elevation of levels of liver transaminase levels] Onset: 04-29-2025 Past or Other Problems Problem Classification Problem [...] Test Name Value Interpretation Reference Range Facility Anion gap in Serum or Plasma Ordered By: Cristina Salas on 04-22-2025 Anion gap [Moles/Vol] 11 mmol/L 5-15 [facility] BUN/creatinine ratioOrdered By: Cristina Salas on 04-22-2025 Urea nitrogen/Creatinine [Mass ratio] 8.2 mg/mg Low 10- [facility] Basic Metabolic Profile (BMP )on 04-22-2025 BUN/CRE 8.2 RATIO Low 10- [facility] Comment on above: Performed By: #### L 501.5200 #### [facility] [address] [place], [address] Calcium [Mass/Vol] 9.1 mg/dL Normal 7.6-11.0 [facility] Comment on above: Performed By: #### L 501.5200 #### [facility] [address] [place], [address] Chloride [Moles/Vol] 102 mmol/L Normal 98-[address] [facility] Comment on above: Performed By: #### L 501.5200 #### [facility] [address] [place], [address] CO2 [Moles/Vol] 25.3 mmol/L Normal 21.0-32.0 [facility] Comment on above: Performed By: #### L 649.5200 #### [facility] [address] [place], [address] Creatinine [Mass/Vol] 0.79 mg/dL Normal 0.70-1.20 [facility] Comment on above: Performed By: #### L 501.5200 #### [facility] [address] [place], [address] ECRCL 129.37 ml/min Normal 50-250 [facility] Comment on above: Performed By: #### L 501.5200 #### [facility] [address] [place], [address] GAP 11 Normal 5-15 [facility] Comment on above: Performed By: #### L 501.5200 #### [facility] [address] [place], [address] GFR/1.73 sq M.predicted among non-blacks MDRD (S/P/Bld) [Vol rate/Area] 104 mL/min/{1.73_m2} Normal >60 [facility] Comment on above: Result Comment: mL/m in/1.73m2 CKD-EPI Creatinine Equation (2020) Performed By: #### L 759.5200 #### [facility] [address] [place], [address] Glucose [Mass/Vol] 104 mg/dL High 70-99 [facility] Comment on above: Performed By: #### L 501.5200 #### [facility] [address] [place], [address] Potassium [Moles/Vol] 4.1 mmol/L Normal 3.3-5.1 [facility] Comment on above: Result Comment: Hemo lysis present, Results??could be affected. ?? Performed By: #### L 891.5200 #### [facility] [address] [place], [address] Sodium [Moles/Vol] 138 mmol/L Normal 133-145 [facility] Comment on above: Performed By: #### L 501.5200 #### [facility] [address] [place], [address] Urea nitrogen [Mass/Vol] 6 mg/dL Normal 4-19 [facility] Comment on above: Performed By: #### L 501.5200 #### [facility] [address] [place], [place], [id number] Carbon dioxide, total [Moles /volume] in Central venous bloodOrdered By: Cristina Salas on 04-22-2025 CO2 [Moles/Vol] 25.3 mmol/L 21.0-32.0 [facility] Chloride assayOrdered By: Marcus Salas on 04-22-2025 Chloride [Moles/Vol] 102 mmol/L 98-[address] [facility] Glomerular filtration rate ( GFR) estimation/1.73 sq m using serum, plasma, or whole bOrdered By: Cristina Salas on 04-22-2025 GFR/1.73 sq M.predicted among non-blacks MDRD (S/P/Bld) [Vol rate/Area] 104 mL/min/{1.73_m2} >60 [facility] Comment on above: mL/min/1.73m2 CKD-EP I Creatinine Equation (2020) Magnesiumon 04-22-2025 Magnesium [Mass/Vol] 2.1 mg/dL Normal 1.5-2.[address] [facility] Comment on above: Performed By: #### L 501.5200 #### [facility] [address] [place], [place], [id number] Magnesium measurement (mass/ volume)Ordered By: Cristina Salas on 04-22-2025 Magnesium (Unsp spec) [Mass/Vol] 2.1 mg/dL 1.5-2.2 [facility] Phosphoruson 04-22-2025 Phosphate [Mass/Vol] 3.4 mg/dL Normal 2.7-4.[address] [facility] Comment on above: Performed By: #### L 501.5200 #### [facility] [place], [address] Potassium measurement (mass/ volume)Ordered By: Cristina Salas on 04-22-2025 Potassium (Unsp spec) [Mass/Vol] 4.1 mmol/L 3.3-5.1 [facility] Comment on above: Hemolysis present, R esults could be affected. Serum creatinine measurement (mass/volume)Ordered By: Cristina Salas on 04-22-2025 Creatinine [Mass/Vol] 0.79 mg/dL 0.70-1.20 [facility] Serum glucose measurement (m ass/volume)Ordered By: Cristina Salas on 04-22-2025 Glucose [Mass/Vol] 104 mg/dL High 70-99 [facility] Serum or plasma calcium che urement (mass/volume)Ordered By: Cristina Salas on 04-22-2025 Calcium [Mass/Vol] 9.1 mg/dL 7.6-11.0 [facility] Serum or plasma urea nitroge n measurement (mass/volume)Ordered By: Cristina Salas on 04-22-2025 Urea nitrogen [Mass/Vol] 6 mg/dL 4-19 [facility] Sodium levelOrdered By: Samantha Salas on 04-22-2025 Sodium [Moles/Vol] 138 mmol/L 133-145 [facility] Absolute lymphocyte countOrd ered By: Umang Mckoy on 04-21-2025 Lymphocytes Auto (Unsp spec) [#/Vol] 1.57 10*3/uL 0.83-4.51 [facility] Absolute neutrophil countOrd ered By: Umang Mckoy on 04-21-2025 Neutrophils (Bld) [#/Vol] 4.0 10*3/uL 2.0-7.7 [facility] Automated lymphocyte count a s percentage of total leukocytesOrdered By: Umang cMkoy on 04-21-2025 Lymphocytes/100 WBC Auto (Unsp spec) 23.3 % 19-41 [facility] Basophil percentageOrdered B y: Umnag Mckoy on 04-21-2025 Basophils/100 WBC (Bld) 0.9 % 0-1 [facility] Bilirubin, totalOrdered By: Umang Mckoy on 04-21-2025 Bilirubin [Mass/Vol] 0.73 mg/dL 0.00-1.[address] [facility] CBC W/Diff, Automatedon Absolute Lymph 1.57 X10 3/uL Normal 0.83-4.51 [facility] Comment on above: Performed By: #### L 100.0100, L501.9520, L300.3900, L500.4050, L501.2300 #### [facility] [address] [place], [address] Absolute Neut 4.0 X10 3/uL Normal 2.0-7.7 [facility] Comment on above: Performed By: #### L 100.0100, L501.9520, L300.3900, L500.4050, L501.2300 #### [facility] [address] [place], [address] Basophils/100 WBC (Bld) 0.9 % Normal 0-1 [facility] Comment on above: Performed By: #### L 100.0100, L501.9520, L300.3900, L500.4050, L501.2300 #### [facility] [address] [place], [address] Eosinophils/100 WBC (Bld) 9.2 % High 0-5 [facility] Comment on above: Performed By: #### L 100.0100, L501.9520, L300.3900, L500.4050, L501.2300 #### [facility] [address] [place], [address] Erythrocyte distribution width (RBC) [Ratio] 12.6 % Normal 11.6-14.6 [facility] Comment on above: Performed By: #### L 100.0100, L501.9520, L300.3900, L500.4050, L501.2300 #### [facility] [address] [place], [address] Hematocrit (Bld) [Volume fraction] 40.2 % Normal 40-54 [facility] Comment on above: Performed By: #### L 100.0100, L501.9520, L300.3900, L500.4050, L501.2300 #### [facility] [address] [place], [address] Hemoglobin (Bld) [Mass/Vol] 13.8 g/dL Normal 13.0-16.5 [facility] Comment on above: Performed By: #### L 100.0100, L501.9520, L300.3900, L500.4050, L501.2300 #### [facility] [address] [place], [address] IG% 0.400 Normal 0.0-0.9 [facility] Comment on above: Result Comment: IG% - Immature Granulocytes (promyelocytes, myelocytes and metamyelocytes) > 1% indicates that a LEFT SHIFT is Present. Performed By: #### L 100.0100, L501.9520, L300.3900, L500.4050, L501.2300 #### [facility] [address] [place], [address] Lymphocytes/100 WBC (Bld) 23.3 % Normal 19-41 [facility] Comment on above: Performed By: #### L 100.0100, L501.9520, L300.3900, L500.4050, L501.2300 #### [facility] [address] [place], [address] MCH (RBC) [Entitic mass] 31.0 pg Normal 27.0-32.0 [facility] Comment on above: Performed By: #### L 100.0100, L501.9520, L300.3900, L500.4050, L501.2300 #### [facility] [address] [place], [address] MCHC (RBC) [Mass/Vol] 34.3 g/dL Normal 32-36 [facility] Comment on above: Performed By: #### L 100.0100, L501.9520, L300.3900, L500.4050, L501.2300 #### [facility] [address] [place], [address] MCV (RBC) [Entitic vol] 90.3 fL Normal 80-94 [facility] Comment on above: Performed By: #### L 100.0100, L501.9520, L300.3900, L500.4050, L501.2300 #### [facility] [address] [place], [address] Monocytes/100 WBC (Bld) 7.0 % Normal 0-10 [facility] Comment on above: Performed By: #### L 100.0100, L501.9520, L300.3900, L500.4050, L501.2300 #### [facility] [address] [place], [address] Neutrophils/100 WBC (Bld) 59.2 % Normal 47-70 [facility] Comment on above: Performed By: #### L 100.0100, L501.9520, L300.3900, L500.4050, L501.2300 #### [facility] [address] [place], [address] Nucleated RBC (Bld) [#/Vol] 0 10*3/uL Normal 0-5 [facility] Comment on above: Performed By: #### L 100.0100, L501.9520, L300.3900, L500.4050, L501.2300 #### [facility] [address] [place], [address] Platelet mean volume (Bld) [Entitic vol] 9.1 fL Normal 6.2-12.0 [facility] Comment on above: Performed By: #### L 100.0100, L501.9520, L300.3900, L500.4050, L501.2300 #### [facility] [address] [place], [address] Platelets (Bld) [#/Vol] 207 10*3/uL Normal 150-450 [facility] Comment on above: Performed By: #### L 100.0100, L501.9520, L300.3900, L500.4050, L501.2300 #### [facility] [address] [place], [address] RBC (Bld) [#/Vol] 4.45 10*6/uL Low 4.6-6.2 [facility] Comment on above: Performed By: #### L 100.0100, L501.9520, L300.3900, L500.4050, L501.2300 #### [facility] [address] [place], [address] RDW SD 41.6 fl Normal 35.1-43.9 [facility] Comment on above: Performed By: #### L 100.0100, L501.9520, L300.3900, L500.4050, L501.2300 #### [facility] [address] [place], [address] WBC (Bld) [#/Vol] 6.8 10*3/uL Normal 4.4-11.0 [facility] Comment on above: Performed By: #### L 100.0100, L501.9520, L300.3900, L500.4050, L501.2300 #### [facility] [address] [place], [address] Comprehensive Metabolic Prof linus 04-21-2025 Albumin [Mass/Vol] 3.8 g/dL Normal 3.5-5.0 [facility] Comment on above: Performed By: #### L 100.0100, L501.9520, L300.3900, L500.4050, L501.2300 #### [facility] [address] [place], [address] Albumin/Globulin [Mass ratio] 1.4 {ratio} Normal 0.9-2.4 [facility] Comment on above: Performed By: #### L 100.0100, L501.9520, L300.3900, L500.4050, L501.2300 #### [facility] [address] [place], [address] ALK PHOS 124 U/L Normal 40-129 [facility] Comment on above: Performed By: #### L 100.0100, L501.9520, L300.3900, L500.4050, L501.2300 #### [facility] [address] [place], [address] ALT [Catalytic activity/Vol] 84 U/L High <=46 [facility] Comment on above: Performed By: #### L 100.0100, L501.9520, L300.3900, L500.4050, L501.2300 #### [facility] [address] [place], [address] AST [Catalytic activity/Vol] 96 U/L High <=37 [facility] Comment on above: Performed By: #### L 100.0100, L501.9520, L300.3900, L500.4050, L501.2300 #### [facility] [address] [place], [address] Bilirubin [Mass/Vol] 0.73 mg/dL Normal 0.00-1.[address] [facility] Comment on above: Performed By: #### L 100.0100, L501.9520, L300.3900, L500.4050, L501.2300 #### [facility] [address] [place], [address] BUN/CRE 12.2 RATIO Normal 10-20 [facility] Comment on above: Performed By: #### L 100.0100, L501.9520, L300.3900, L500.4050, L501.2300 #### [facility] [address] [place], [address] Calcium [Mass/Vol] 8.8 mg/dL Normal 7.6-11.0 [facility] Comment on above: Performed By: #### L 100.0100, L501.9520, L300.3900, L500.4050, L501.2300 #### [facility] [address] [place], [address] Chloride [Moles/Vol] 104 mmol/L Normal 98-[address] [facility] Comment on above: Performed By: #### L 100.0100, L501.9520, L300.3900, L500.4050, L501.2300 #### [facility] [address] [place], [address] CO2 [Moles/Vol] 21.0 mmol/L Normal 21.0-32.0 [facility] Comment on above: Performed By: #### L 100.0100, L501.9520, L300.3900, L500.4050, L501.2300 #### [facility] [address] [place], [address] Creatinine [Mass/Vol] 0.73 mg/dL Normal 0.70-1.20 [facility] Comment on above: Performed By: #### L 100.0100, L501.9520, L300.3900, L500.4050, L501.2300 #### [facility] [address] [place], [address] ECRCL 141.79 ml/min Normal 50-250 [facility] Comment on above: Performed By: #### L 100.0100, L501.9520, L300.3900, L500.4050, L501.2300 #### [facility] [address] [place], [address] GAP 13 Normal 5-15 [facility] Comment on above: Performed By: #### L 100.0100, L501.9520, L300.3900, L500.4050, L501.2300 #### [facility] [address] [place], [address] GFR/1.73 sq M.predicted among non-blacks MDRD (S/P/Bld) [Vol rate/Area] 107 mL/min/{1.73_m2} Normal >60 [facility] Comment on above: Result Comment: mL/m in/1.73m2 CKD-EPI Creatinine Equation (2020) Performed By: #### L 100.0100, L501.9520, L300.3900, L500.4050, L501.2300 #### [facility] [address] [place], [address] Globulin (S) [Mass/Vol] 2.7 g/dL Normal 2.2-4.2 [facility] Comment on above: Performed By: #### L 100.0100, L501.9520, L300.3900, L500.4050, L501.2300 #### [facility] [address] [place], [address] Glucose [Mass/Vol] 97 mg/dL Normal 70-99 [facility] Comment on above: Performed By: #### L 100.0100, L501.9520, L300.3900, L500.4050, L501.2300 #### [facility] [address] [place], [address] Potassium [Moles/Vol] 3.2 mmol/L Low 3.3-5.1 [facility] Comment on above: Performed By: #### L 100.0100, L501.9520, L300.3900, L500.4050, L501.2300 #### [facility] [address] [place], [address] Sodium [Moles/Vol] 138 mmol/L Normal 133-145 [facility] Comment on above: Performed By: #### L 100.0100, L501.9520, L300.3900, L500.4050, L501.2300 #### [facility] [address] [place], [address] T PROT 6.5 g/dL Normal 5.9-8.4 [facility] Comment on above: Performed By: #### L 100.0100, L501.9520, L300.3900, L500.4050, L501.2300 #### [facility] [address] [place], [address] Urea nitrogen [Mass/Vol] 9 mg/dL Normal 4-19 [facility] Comment on above: Performed By: #### L 100.0100, L501.9520, L300.3900, L500.4050, L501.2300 #### [facility] [address] [place], [address] Eosinophil percentageOrdered By: Umang Mckoy on 04-21-2025 Eosinophils/100 WBC (Bld) 9.2 % High 0-5 [facility] Erythrocyte distribution wid th ratioOrdered By: Umang Mckoy on 04-21-2025 Erythrocyte distribution width (RBC) [Ratio] 12.6 % 11.6-14.6 [facility] Erythrocyte distribution wid th standard deviationOrdered By: Umang Mckoy on 04-21-2025 Erythrocyte distribution width (RBC) [Ratio] 41.6 fl 35.1-43.9 [facility] Hematocrit Auto (Bld) [Volum e fraction]Ordered By: Umang Mckoy on 04-21-2025 Hematocrit (Bld) [Volume fraction] 40.2 % 40-54 [facility] Hemoglobin measurementOrdere d By: Umang Mckoy on 04-21-2025 Hemoglobin (Bld) [Mass/Vol] 13.8 g/dL 13.0-16.5 [facility] Immature granulocytes/100 WB C Auto (Bld)Ordered By: Umang Mckoy on 04-21-2025 Immature granulocytes/100 WBC (Bld) 0.400 % 0.0-0.9 [facility] Comment on above: IG% - Immature Granu locytes (promyelocytes, myelocytes and metamyelocytes) > 1% indicates that a LEFT SHIFT is Present. International normalized rat io (INR) calculationOrdered By: Umang Mckoy on 04-21-2025 INR Coag (Bld) [Relative time] 1.1 {INR} [facility] - Chemistry and C hemistry - challengeOrdered By: Umang Mckoy on 04-21-2025 AST [Catalytic activity/Vol] 96 U/L High <38 [facility] MCV (mean corpuscular volume ) determinationOrdered By: Umang Mckoy on 04-21-2025 MCV (RBC) [Entitic vol] 90.3 fL 80-94 [facility] Mean corpuscular hemoglobin (MCH) determinationOrdered By: Umang Mckoy on 04-21-2025 MCH (RBC) [Entitic mass] 31.0 pg 27.0-32.0 [facility] Mean corpuscular hemoglobin concentration (MCHC) determinationOrdered By: Umang Mckoy on 04-21-2025 MCHC (RBC) [Mass/Vol] 34.3 g/dL 32-36 [facility] Mean platelet volume determi nationOrdered By: Umang Mckoy on 04-21-2025 Platelet mean volume (Bld) [Entitic vol] 9.1 fL 6.2-12.0 [facility] Monocyte percentageOrdered B y: Umang Mckoy on 08-03-2025 Monocytes/100 WBC (Bld) 7.0 % 0-10 [facility] Neutrophil percentageOrdered By: Umang Mckoy on 04-21-2025 Neutrophils/100 WBC (Bld) 59.2 % 47-70 [facility] Nucleated red blood cell per centageOrdered By: Umang Mckoy on 04-21-2025 Nucleated RBC/100 WBC (Bld) [Ratio] 0 % 0-5 [facility] Phosphoruson 04-21-2025 Phosphate [Mass/Vol] 4.5 mg/dL Normal 2.7-4.[address] [facility] Comment on above: Performed By: #### L 300.3900 #### [facility] [address] [place], [address] Platelet countOrdered By: Norman Mckoy on 04-21-2025 Platelets (Bld) [#/Vol] 207 10*3/uL 150-450 [facility] Prothrombin Time w/INRon INR Coag (PPP) [Relative time] 1.1 {INR} Normal [facility] Comment on above: Performed By: #### L 100.0100, L501.9520, L300.3900, L500.4050, L501.2300 #### [facility] [address] [place], [address] PT Coag (PPP) [Time] 14.2 s Normal 11.7-14.[address] [facility] Comment on above: Performed By: #### L 100.0100, L501.9520, L300.3900, L500.4050, L501.2300 #### [facility] [address] [place], [address] Prothrombin timeOrdered By: Umang Mckoy on 04-21-2025 PT Coag (PPP) [Time] 14.2 s 11.7-14.[address] [facility] RBC Auto (Bld) [#/Vol]Ordere d By: Umang Mckoy on 04-21-2025 RBC (Bld) [#/Vol] 4.45 10*6/uL Low 4.6-6.2 [facility] Serum globulin measurementOr dered By: Umang Mckoy on 04-21-2025 Globulin (S) [Mass/Vol] 2.7 g/dL 2.2-4.2 [facility] Serum or plasma alanine davidson otransferase (ALT) measurementOrdered By: Umang Mckoy on 04-21-2025 ALT [Catalytic activity/Vol] 84 U/L High <47 [facility] Serum or plasma albumin che urement (mass/volume)Ordered By: Umang Mckoy on 04-21-2025 Albumin [Mass/Vol] 3.8 g/dL 3.5-5.0 [facility] Serum or plasma albumin/glob ulin mass ratioOrdered By: Umang Mckoy on 04-21-2025 Albumin/Globulin [Mass ratio] 1.4 {ratio} 0.9-2.4 [facility] Serum or plasma alkaline salma sphatase measurementOrdered By: Umang Mckoy on 04-21-2025 ALP [Catalytic activity/Vol] 124 U/L 40-129 [facility] TSH DL <= 0.005 mIU/L QnOrde red By: Umang Mckoy on 04-21-2025 TSH Qn 4.140 uIU/mL 0.300-4.200 [facility] Thyroid Stim Hormone (TSH)on 04-21-2025 TSH 4.140 uIU/mL Normal 0.300-4.200 [facility] Comment on above: Performed By: #### L 300.3900 #### [facility] [address] [place], [address] Total proteinOrdered By: Andrei Mckoy on 04-21-2025 Protein [Mass/Vol] 6.5 g/dL 5.9-8.4 [facility] Urine Drug Screen (VISTA)on 04-21-2025 AMPHETAMINES Negative Normal <1000 ng/mL [facility] Comment on above: Performed By: #### L 100.0100, L501.9100, L505.5000 #### [facility] [address] [place], [address] BARBITIURATES Negative Normal < 200 ng/mL [facility] Comment on above: Performed By: #### L 100.0100, L501.9100, L505.5000 #### [facility] [address] [place], [address] BENZODIAZIPINE Negative Normal < 200 ng/mL [facility] Comment on above: Performed By: #### L 100.0100, L501.9100, L505.5000 #### [facility] [address] [place], [address] BUP Ur Drug Scr Negative Normal < 200 ng/mL [facility] Comment on above: Performed By: #### L 100.0100, L501.9100, L505.5000 #### [facility] [address] [place], [address] COCAINE Negative Normal < 300 ng/mL [facility] Comment on above: Performed By: #### L 100.0100, L501.9100, L505.5000 #### [facility] [address] [place], [address] Fentanyl Negative Normal [facility] Comment on above: Performed By: #### L 100.0100, L501.9100, L505.5000 #### [facility] [address] [place], [address] METHADONE Negative Normal < 300 ng/mL [facility] Comment on above: Performed By: #### L 100.0100, L501.9100, L505.5000 #### [facility] [address] [place], [address] OPIATES Negative Normal < 300 ng/mL [facility] Comment on above: Performed By: #### L 100.0100, L501.9100, L505.5000 #### [facility] [address] [place], [address] OXYCODONE Negative Normal < 100 ng/mL [facility] Comment on above: Performed By: #### L 100.0100, L501.9100, L505.5000 #### [facility] [address] [place], [address] PCP Negative Normal < 25 ng/mL [facility] Comment on above: Performed By: #### L 100.0100, L501.9100, L505.5000 #### [facility] [address] [place], [address] THC Negative Normal < 50 ng/mL [facility] Comment on above: Performed By: #### L 100.0100, L501.9100, L505.5000 #### [facility] [address] [place], [address] White blood cell (WBC) count Ordered By: Umang Mckoy on 04-21-2025 WBC (Bld) [#/Vol] 6.8 10*3/uL 4.4-11.0 [facility] Absolute lymphocyte countOrd ered By: Lucretia Hunter on 04-20-2025 Lymphocytes Auto (Unsp spec) [#/Vol] 2.01 10*3/uL 0.83-4.51 [facility] Absolute neutrophil countOrd ered By: Lucretia Hunter on 04-20-2025 Neutrophils (Bld) [#/Vol] 6.3 10*3/uL 2.0-7.7 [facility] Alcohol, Blood (Medical)-Ser umon 04-20-2025 SERUM ETOH 124.0 mg/dL High <=10.0 [facility] Comment on above: Result Comment: This test is for medical purposes only. The legal definition of intoxication varies according to local law. Performed By: #### L 501.5200 #### [facility] [address] [place], [address] Amphetamine detection with 1 000 ng/mL as cutoffOrdered By: Lucretia Hunter on 04-20-2025 Amphetamines Screen method >1000 ng/mL Ql (U) Negative < 200 ng/mL [facility] Anion gap in Serum or Plasma Ordered By: Lucretia Hunter on 04-20-2025 Anion gap [Moles/Vol] 15 mmol/L 5-15 [facility] Automated lymphocyte count a s percentage of total leukocytesOrdered By: Lucretia Hunter on 04-20-2025 Lymphocytes/100 WBC Auto (Unsp spec) 20.1 % 19-41 [facility] BUN/creatinine ratioOrdered By: Lucretia Hunter on 04-20-2025 Urea nitrogen/Creatinine [Mass ratio] 9.5 mg/mg Low 10-20 [facility] Basophil percentageOrdered B y: Lucretia Hunter on 04-20-2025 Basophils/100 WBC (Bld) 1.3 % High 0-1 [facility] Bilirubin, totalOrdered By: Lucretia Hunter on 04-20-2025 Bilirubin [Mass/Vol] 0.80 mg/dL Normal 0.00-1.[address] [facility] Comment on above: Performed By: #### L 100.0100, L501.9100, L505.5000 #### [facility] [address] [place], [address] CBC W/Diff, Automatedon Absolute Lymph 2.01 X10 3/uL Normal 0.83-4.51 [facility] Comment on above: Performed By: #### L 978.5200 #### [facility] [address] [place], [address] Absolute Neut 6.3 X10 3/uL Normal 2.0-7.7 [facility] Comment on above: Performed By: #### L 501.5200 #### [facility] [address] [place], [address] Basophils/100 WBC (Bld) 1.3 % High 0-1 [facility] Comment on above: Performed By: #### L 501.5200 #### [facility] [address] [place], [address] Eosinophils/100 WBC (Bld) 8.9 % High 0-5 [facility] Comment on above: Performed By: #### L 501.5200 #### [facility] [address] [place], [address] Erythrocyte distribution width (RBC) [Ratio] 12.7 % Normal 11.6-14.6 [facility] Comment on above: Performed By: #### L 501.5200 #### [facility] [address] [place], [address] Hematocrit (Bld) [Volume fraction] 43.5 % Normal 40-54 [facility] Comment on above: Performed By: #### L 501.5200 #### [facility] [address] [place], [address] Hemoglobin (Bld) [Mass/Vol] 14.9 g/dL Normal 13.0-16.5 [facility] Comment on above: Performed By: #### L 501.5200 #### [facility] [address] [place], [address] IG% 0.400 Normal 0.0-0.9 [facility] Comment on above: Result Comment: IG% - Immature Granulocytes (promyelocytes, myelocytes and metamyelocytes) > 1% indicates that a LEFT SHIFT is Present. Performed By: #### L 501.5200 #### [facility] [address] [place], [address] Lymphocytes/100 WBC (Bld) 20.1 % Normal 19-41 [facility] Comment on above: Performed By: #### L 501.5200 #### [facility] [address] [place], [address] MCH (RBC) [Entitic mass] 30.8 pg Normal 27.0-32.0 [facility] Comment on above: Performed By: #### L 501.5200 #### [facility] [address] [place], [address] MCHC (RBC) [Mass/Vol] 34.3 g/dL Normal 32-36 [facility] Comment on above: Performed By: #### L 501.5200 #### [facility] [address] [place], [address] MCV (RBC) [Entitic vol] 90.1 fL Normal 80-94 [facility] Comment on above: Performed By: #### L 501.5200 #### [facility] [address] [place], [address] Monocytes/100 WBC (Bld) 6.3 % Normal 0-10 [facility] Comment on above: Performed By: #### L 501.5200 #### [facility] [address] [place], [address] Neutrophils/100 WBC (Bld) 63.0 % Normal 47-70 [facility] Comment on above: Performed By: #### L 501.5200 #### [facility] [address] [place], [address] Nucleated RBC (Bld) [#/Vol] 0 10*3/uL Normal 0-5 [facility] Comment on above: Performed By: #### L 501.5200 #### [facility] [address] [place], [address] Platelet mean volume (Bld) [Entitic vol] 9.0 fL Normal 6.2-12.0 [facility] Comment on above: Performed By: #### L 501.5200 #### [facility] [address] [place], [address] Platelets (Bld) [#/Vol] 249 10*3/uL Normal 150-450 [facility] Comment on above: Performed By: #### L 501.5200 #### [facility] [address] [place], [address] RBC (Bld) [#/Vol] 4.83 10*6/uL Normal 4.6-6.2 [facility] Comment on above: Performed By: #### L 501.5200 #### [facility] [address] [place], [address] RDW SD 42.0 fl Normal 35.1-43.9 [facility] Comment on above: Performed By: #### L 501.5200 #### [facility] [address] [place], [address] WBC (Bld) [#/Vol] 10.0 10*3/uL Normal 4.4-11.0 [facility] Comment on above: Performed By: #### L 501.5200 #### [facility] [address] [place], [address] Carbon dioxide, total [Moles /volume] in Central venous bloodOrdered By: Lucretia Hunter on 04-20-2025 CO2 [Moles/Vol] 25.6 mmol/L Normal 21.0-32.0 [facility] Comment on above: Performed By: #### L 100.0100, L501.9100, L505.5000 #### [facility] [address] [place], [address] Chloride assayOrdered By: Lynda Hunter on 04-20-2025 Chloride [Moles/Vol] 99 mmol/L Normal 98-[address] [facility] Comment on above: Performed By: #### L 100.0100, L501.9100, L505.5000 #### [facility] [address] [place], [address] Comprehensive Metabolic Prof ilon 04-20-2025 ALK PHOS 130 U/L High 40-129 [facility] Comment on above: Performed By: #### L 100.0100, L501.9100, L505.5000 #### [facility] [address] [place], [address] BUN/CRE 9.5 RATIO Low 10-20 [facility] Comment on above: Performed By: #### L 100.0100, L501.9100, L505.5000 #### [facility] [address] [place], [address] ECRCL 96.71 ml/min Normal 50-250 [facility] Comment on above: Performed By: #### L 100.0100, L501.9100, L505.5000 #### [facility] [address] [place], [address] GAP 15 Normal 5-15 [facility] Comment on above: Performed By: #### L 100.0100, L501.9100, L505.5000 #### [facility] [address] [place], [address] Potassium [Moles/Vol] 3.6 mmol/L Normal 3.3-5.1 [facility] Comment on above: Performed By: #### L 100.0100, L501.9100, L505.5000 #### [facility] [address] [place], [address] T PROT 7.7 g/dL Normal 5.9-8.4 [facility] Comment on above: Performed By: #### L 100.0100, L501.9100, L505.5000 #### [facility] [address] [place], [address] Comprehensive Metabolic Prof ilOrdered By: Lucretia Hunter on 04-20-2025 AST [Catalytic activity/Vol] 117 U/L High <=37 [facility] Comment on above: Performed By: #### L 100.0100, L501.9100, L505.5000 #### [facility] [address] [place], [address] Emergency Department Summary on 04-20-2025 Emergency Department Summary [facility] Medical Records Department [address] [place] [address] Emergency Department Summary 04/20/25 MR#: [id number] Acct: [id number] Name: SLOAN HARVEY Rep #: [id number] : 1970 55 From: Lucretia LEE PCP: Dr. Peggy Nicole DO Status:REG ER Location: ED HPI History of Present Illness Chief Complaint: Substance Abuse Narrative Narrative: Patient presenting today requesting to detox from alcohol. He drinks 1-2/5 of vodka per day, he reports that over the past 5 years he has been battling alcohol abuse and has detoxed here in the past. He also reports occasional marijuana use. He denies any history of withdrawal seizure. He does typically experience withdrawal symptoms first thing in the morning including shakiness, anxiety, nausea, and occasionally has hallucinations. His last drink was this evening, he is not currently withdrawing. [facility] Medical History Polysubstance abuse Anxiety Depression Hypertension Home Medications ???Medication ???Instructions [...] / Time No Known Allergies Allergy Verified 04/20/25 21:05 Family History Other Alcoholism Social History Smoking Status: Current every day smoker tobacco type: cigarettes Smokeless tobacco user: other substance use type: marijuana and amphetamines ROS ROS ED Constitutional Constitutional ED: Denies chills or fever(s) Cardiovascular Cardiovascular: Denies chest pain Respiratory/Chest Respiratory/Chest: Denies dyspnea Gastrointestinal Gastrointestinal: Denies abdominal pain, nausea or vomiting Musculoskeletal Musculoskeletal: Denies arthralgias or myalgias Integumentary Denies rash Neurologic Neurologic: Denies weakness Psychiatric Psychiatric: Denies anxiety, depression, suicidal ideation or suicidal thoughts EXAM Physical Exam Const Vital Signs: 04/20/25 21:04 04/20/25 22:03 Temperature 97.4 F L 96.8 F L Temperature Source Temporal Pulse Rate 83 71 Respiratory Rate 20 H 20 H Blood Pressure 120/88 H 133/81 H Blood Pressure Mean 98 98 Pulse Ox 95 94 Oxygen Delivery Method Room Air Positive well nourished, well developed and no apparent distress General Appearance ED: well developed HEENT Reports normocephalic and head/scalp atraumatic Mouth ED: Yes moist mucous membranes normal Eyes PERRL and EOMs intact bilaterally Neck full ROM and supple Chest Wall inspection of chest normal Resp normal respiratory effort and clear to auscultation bilaterally Cardio regular rate and regular rhythm Back/Spine normal ROM and normal to inspection Extremity normal to inspection and full ROM Neuro oriented x3, moves all extremities, no focal motor deficits and no sensory deficits noted Sensorium / Orientation: awake and alert Psych mental status grossly normal and thought process normal Skin no rashes or lesions noted and no wounds Physical Exam Const Vital Signs: 04/20/25 21:04 04/20/25 22:03 Temperature 97.4 F L 96.8 F L Temperature Source Temporal Pulse Rate 83 71 Respiratory Rate 20 H 20 H Blood Pressure 120/88 H 133/81 H Blood Pressure Mean 98 98 Pulse Ox 95 94 Oxygen Delivery Method Room Air MDM MDM MDM Narrative Medical decision making narrative: Patient presenting today requesting to detox from alcohol. His last drink was this evening. He drinks about 1-2/5 of vodka per day. He does not currently feel like he is going through withdrawal. Labs will be obtained and he will be admitted to the hospital. Labs at this time are pending. I have personally performed a face to face assessment of the patient and have reviewed the RENA Note. I performed a substantive portion of the visit including all aspects of the following. My robb findings include: History is remarkable for detox approximately 16 months ago. He was sober for over a year. Began to drink. He has been consuming 1/5 of vodka per day for the past 3 months. He states 1 he awakes he has tremors palpitations sweats until he starts drinki (more content not included)... Normal [facility] Eosinophil percentageOrdered By: Lucretia Hunter on 04-20-2025 Eosinophils/100 WBC (Bld) 8.9 % High 0-5 [facility] Erythrocyte distribution wid th ratioOrdered By: [facility] on 04-20-2025 Erythrocyte distribution width (RBC) [Ratio] 12.7 % 11.6-14.6 [facility] Erythrocyte distribution wid th standard deviationOrdered By: Lucretiakrista Hunter on 04-20-2025 Erythrocyte distribution width (RBC) [Ratio] 42.0 fl 35.1-43.9 [facility] Glomerular filtration rate ( GFR) estimation/1.73 sq m using serum, plasma, or whole bOrdered By: Lucretia Hunter on 04-20-2025 GFR/1.73 sq M.predicted among non-blacks MDRD (S/P/Bld) [Vol rate/Area] 81 mL/min/{1.73_m2} Normal >60 [facility] Comment on above: mL/min/1.73m2 CKD-EP I Creatinine Equation (2020) Result Comment: mL/m in/1.73m2 CKD-EPI Creatinine Equation (2020) Performed By: #### L 100.0100, L501.9100, L505.5000 #### [facility] [address] [place], [address] H AND P Exam - Hospitaliston 04-20-2025 H&P Exam - Hospitalist [facility] Medical Records Department [address] [place] [address] H P Exam - Hospitalist 04/20/256 MR#: [id number] Acct: [id number] Name: SLOAN HARVEY Rep #: [id number] : 1970 55 From: Umang Arias DO PCP: Dr. Peggy Nicole DO Status:ADM IN Location: MS3 [id number] [facility] - General General Date of Admission: 04/20/25 Date of Service: 04/20/25 Chief Complaint: Requesting EtOH Detox. HPI Narrative SLOAN HARVEY, is a 55 M with a past medical history of essential hypertension; on amlodipine, obesity (class II); with BMI of 35.5 this admission, depression with anxiety; on duloxetine twice daily and buspirone 3 times daily plus hydroxyzine as needed 3 times daily, OA; on ibuprofen 3 times daily as needed, tobacco abuse, history of alcoholic hepatitis and chronic polysubstance abuse with EtOH, history of amphetamine abuse via smoking and cannabis with recent admission here from February 15, 2025 to February 18, 2025 for treatment of EtOH detox who re-presents to [facility] ER once again requesting EtOH detox. Mr. Pham reports chronically drinking 1-2/5 of vodka per day over the past 5 years punctuated by brief periods of sobriety. He also admits to cannabis abuse. He typically experiences withdrawal symptoms pursing in the morning including shakiness, anxiety, nausea and occasionally has hallucinations but his last drink was this evening with no current symptoms of withdrawal. In the ER he was noted to have a EMMIE of 124 mg/dL complicated by Transaminitis; with AST 117 units/L, ALT of 99 units/L and alkaline phosphatase of 130 units/L likely due to EtOH Hepatitis in the setting of chronic and recalcitrant EtOH abuse and he was then admitted to the general medical floor for treatment under the EtOH withdrawal protocol for stay that is expected to extend beyond 2 midnights. [facility], [facility] Medical History Polysubstance abuse Anxiety Depression Hypertension Home Medications ???Medication ???Instructions [...] / Time No Known Allergies Allergy Verified 04/20/25 21:05 Family History Other Alcoholism Social History Smoking Status: Current every day smoker tobacco type: cigarettes Smokeless tobacco user: other substance use type: marijuana and amphetamines ROS ROS Narrative Review of Systems: Constitutional: Patient denies fever or chills. Eyes: Patient denies change in vision or discharge from eyes. ENT: Patient denies runny nose, sore throat or ear pain. Resp: Patient denies shortness of breath or cough. CV: Patient denies chest pain, palpitations, heart racing or lower extremity edema. GI: Patient denies abdominal pain, nausea, vomiting, diarrhea or constipation. : Patient denies dysuria or hematuria. MSK: Patient denies arthralgias or myalgias. Skin: Patient denies rash, abscess, wounds or jaundice. Psych: Patient denies symptoms of uncontrolled depression or anxiety. Neuro: Patient denies headache, paresthesias or focal neurologic deficits. Allergy: Patient denies lip swelling, tongue swelling or urticaria. Hematology: Patient denies easy bleeding or easy bruisability. Endocrinology: Patient denies polyuria, polydipsia, polyphagia or heat/cold intolerance. 14 point ROS otherwise negative except for positives noted above in HPI. Vital Signs Vital Signs Vital Signs: 04/20/25 21:04 Temperature 97.4 F L Temperature Source Temporal Pulse Rate 83 Respiratory Rate 20 H Blood Pressure 120/88 H Blood Pressure Mean 98 Pulse Ox 95 Oxygen Delivery Method Room Air Weight Weight: 247 lb 7 oz Body Mass Index (BMI) 35.4 Physical Exam Const alert, oriented x3 and no apparent distress Constitutional Narrative: Obese and intoxicated. General Appearance: cooperative HEENT normocephalic, head/scalp atraumatic, hearing grossly normal bilaterally and moist oral mucous membranes Eyes PERRL, EOMs intact bilaterally and conjunctivae normal Neck no lymphadenopathy, supple and no JVD Resp normal respiratory effort, no retractions, no use of accessory muscles an (more content not included)... Normal [facility] Hematocrit Auto (Bld) [Volum e fraction]Ordered By: Lucretia Hunter on 04-20-2025 Hematocrit (Bld) [Volume fraction] 43.5 % 40-54 [facility] Hemoglobin measurementOrdere d By: Lucretia Hunter on 04-20-2025 Hemoglobin (Bld) [Mass/Vol] 14.9 g/dL 13.0-16.5 [facility] Immature granulocytes/100 WB C Auto (Bld)Ordered By: Lucretia Hunter on 04-20-2025 Immature granulocytes/100 WBC (Bld) 0.400 % 0.0-0.9 [facility] Comment on above: IG% - Immature Granu locytes (promyelocytes, myelocytes and metamyelocytes) > 1% indicates that a LEFT SHIFT is Present. MCV (mean corpuscular volume ) determinationOrdered By: Lucretia Hunter on 04-20-2025 MCV (RBC) [Entitic vol] 90.1 fL 80-94 [facility] Magnesiumon 04-20-2025 Magnesium [Mass/Vol] 1.9 mg/dL Normal 1.5-2.[address] [facility] Comment on above: Performed By: #### L 501.5200 #### [facility] [address] [place] [address], [address] Magnesium measurement (mass/ volume)Ordered By: Umang Mckoy on 04-20-2025 Magnesium (Unsp spec) [Mass/Vol] 1.9 mg/dL 1.5-2.2 [facility] Mean corpuscular hemoglobin (MCH) determinationOrdered By: Lucretia Hunter on 04-20-2025 MCH (RBC) [Entitic mass] 30.8 pg 27.0-32.0 [facility] Mean corpuscular hemoglobin concentration (MCHC) determinationOrdered By: Lucretia Hunter on 04-20-2025 MCHC (RBC) [Mass/Vol] 34.3 g/dL 32-36 [facility] Mean platelet volume determi nationOrdered By: Lucretia Hunter on 04-20-2025 Platelet mean volume (Bld) [Entitic vol] 9.0 fL 6.2-12.0 [facility] Monocyte percentageOrdered B y: Lucretia Hunter on 04-20-2025 Monocytes/100 WBC (Bld) 6.3 % 0-10 [facility] Neutrophil percentageOrdered By: Lucretia Hunter on 04-20-2025 Neutrophils/100 WBC (Bld) 63.0 % 47-70 [facility] No Panel InformationOrdered By: Lucretia Hunter on 04-20-2025 Urine Buprenorphine Qualitative Negative < 200 ng/mL [facility] Urine Oxycodone Screen Negative < 100 ng/mL [facility] Nucleated red blood cell per centageOrdered By: Lucretia Hunter on 04-20-2025 Nucleated RBC/100 WBC (Bld) [Ratio] 0 % 0-5 [facility] Platelet countOrdered By: Lynda Hunter on 04-20-2025 Platelets (Bld) [#/Vol] 249 10*3/uL 150-450 [facility] Potassium measurement (mass/ volume)Ordered By: Lucretia Hunter on 04-20-2025 Potassium (Unsp spec) [Mass/Vol] 3.6 mmol/L 3.3-5.1 [facility] Quantitative urine opiates m easurementOrdered By: Lucretia Hunter on 04-20-2025 Opiates Ql (U) Negative < 300 ng/mL [facility] RBC Auto (Bld) [#/Vol]Ordere d By: Lucretia Hunter on 04-20-2025 RBC (Bld) [#/Vol] 4.83 10*6/uL 4.6-6.2 [facility] Screening urine fentanyl angela surementOrdered By: Lucretia Hunter on 04-20-2025 fentaNYL Screen Ql (U) Negative [facility] Serum creatinine measurement (mass/volume)Ordered By: Lucretia Hunter on 04-20-2025 Creatinine [Mass/Vol] 1.07 mg/dL Normal 0.70-1.20 [facility] Comment on above: Performed By: #### L 100.0100, L501.9100, L505.5000 #### [facility] [address] [place], [address] Serum globulin measurementOr dered By: Lucretia Hunter on 04-20-2025 Globulin (S) [Mass/Vol] 3.2 g/dL Normal 2.2-4.2 [facility] Comment on above: Performed By: #### L 100.0100, L501.9100, L505.5000 #### [facility] [address] [place], [address] Serum glucose measurement (m ass/volume)Ordered By: Lucretia Hunter on 04-20-2025 Glucose [Mass/Vol] 117 mg/dL High 70-99 [facility] Comment on above: Performed By: #### L 100.0100, L501.9100, L505.5000 #### [facility] [address] [place], [address] Serum or plasma alanine davidson otransferase (ALT) measurementOrdered By: Lucretia Hunter on 04-20-2025 ALT [Catalytic activity/Vol] 99 U/L High <=46 [facility] Comment on above: Performed By: #### L 100.0100, L501.9100, L505.5000 #### [facility] [address] [place], [address] Serum or plasma albumin che urement (mass/volume)Ordered By: Lucretia Hunter on 04-20-2025 Albumin [Mass/Vol] 4.5 g/dL Normal 3.5-5.0 [facility] Comment on above: Performed By: #### L 100.0100, L501.9100, L505.5000 #### [facility] [address] [place], [address] Serum or plasma albumin/glob ulin mass ratioOrdered By: Lucretia Hunter on 08-02-2025 Albumin/Globulin [Mass ratio] 1.4 {ratio} Normal 0.9-2.4 [facility] Comment on above: Performed By: #### L 100.0100, L501.9100, L505.5000 #### [facility] [address] [place], [address] Serum or plasma alkaline salma sphatase measurementOrdered By: Lucretia Hunter on 04-20-2025 ALP [Catalytic activity/Vol] 130 U/L High 40-129 [facility] Serum or plasma calcium che urement (mass/volume)Ordered By: Lucretia Hunter on 04-20-2025 Calcium [Mass/Vol] 9.5 mg/dL Normal 7.6-11.0 [facility] Comment on above: Performed By: #### L 100.0100, L501.9100, L505.5000 #### [facility] [address] [place], [address] Serum or plasma ethanol che urement (mass/volume)Ordered By: Lucretia Hunter on 04-20-2025 Ethanol [Mass/Vol] 124.0 mg/dL High <10.1 [facility] Comment on above: This test is for med ical purposes only. The legal definition of intoxication varies according to local law. Serum or plasma urea nitroge n measurement (mass/volume)Ordered By: Lucretia Hunter on 04-20-2025 Urea nitrogen [Mass/Vol] 10 mg/dL Normal 4-19 [facility] Comment on above: Performed By: #### L 100.0100, L501.9100, L505.5000 #### [facility] [address] [place], [address] Sodium levelOrdered By: Ulises Hunter on 04-20-2025 Sodium [Moles/Vol] 139 mmol/L Normal 133-145 [facility] Comment on above: Performed By: #### L 100.0100, L501.9100, L505.5000 #### [facility] [address] [place], [address] Total proteinOrdered By: Guzman maki Hunter on 04-20-2025 Protein [Mass/Vol] 7.7 g/dL 5.9-8.4 [facility] Urine benzodiazepine levelOr dered By: Lucretiastephen Hunter on 04-20-2025 Benzodiazepines Ql (U) Negative < 200 ng/mL [facility] Urine cocaine levelOrdered B y: Lucretia Hunter on 04-20-2025 Cocaine Ql (U) Negative < 300 ng/mL [facility] Urine dcqku-0-aynnvcdvicyawf abinol (THC) measurementOrdered By: Lucretia Hunter on 04-20-2025 Cannabinoids Screen Ql (U) Negative < 50 ng/mL [facility] Urine phencyclidine (PCP) de tectionOrdered By: Lucretia Hunter on 04-20-2025 Phencyclidine Ql (U) Negative < 25 ng/mL [facility] White blood cell (WBC) count Ordered By: Lucretia Hunter on 04-20-2025 WBC (Bld) [#/Vol] 10.0 10*3/uL 4.4-11.0 [facility] Abdomen Limitedon 02-18-2025 Abdomen Limited [facility] Imaging Services [address] [place], [place] [address] Abdomen Limited MR#: [id number] Acct: [id number] Name: SLOAN HARVEY Rep #: [id number] : 1970 M 55 From: Paramjit Dumont PCP: Dr. Peggy Nicole, DO Status: DIS IN Study: Abdomen Limited Date of Exam: 02/18/25 Exam# [id number] Ordering Dr: Vu Jean MD PROCEDURE: ABDOMEN [...] hepatic steatosis. No acute cholecystitis. Reading Location: [facility] CC: Dr. Peggy Nicole DO; Dr. Vu Jean MD Last Trimmer: Signed Normal [facility] Anion gap in Serum or Plasma Ordered By: Vu Jean on 02-18-2025 Anion gap [Moles/Vol] 13 mmol/L 5-15 [facility] BUN/creatinine ratioOrdered By: Vu Jean on 02-18-2025 Urea nitrogen/Creatinine [Mass ratio] 11.8 mg/mg 10- [facility] Bilirubin, totalOrdered By: Vu Jean on 02-18-2025 Bilirubin [Mass/Vol] 0.64 mg/dL 0.00-1.[address] [facility] Carbon dioxide, total [Moles /volume] in Central venous bloodOrdered By: Vu Jean on 02-18-2025 CO2 [Moles/Vol] 21.6 mmol/L 21.0-32.0 [facility] Chloride assayOrdered By: Debbie Jean on 02-18-2025 Chloride [Moles/Vol] 104 mmol/L 98-[address] [facility] Comprehensive Metabolic Prof ilon 02-18-2025 Albumin [Mass/Vol] 4.1 g/dL Normal 3.5-5.0 [facility] Comment on above: Performed By: #### L 100.0100, L501.9100, L505.5000 #### [facility] [address] [place], [address] Albumin/Globulin [Mass ratio] 1.4 {ratio} Normal 0.9-2.4 [facility] Comment on above: Performed By: #### L 100.0100, L501.9100, L505.5000 #### [facility] [address] [place], [address] ALK PHOS 129 U/L Normal 40-129 [facility] Comment on above: Performed By: #### L 100.0100, L501.9100, L505.5000 #### [facility] [address] [place], [address] ALT [Catalytic activity/Vol] 120 U/L High <=46 [facility] Comment on above: Performed By: #### L 100.0100, L501.9100, L505.5000 #### [facility] [address] [place], [address] AST [Catalytic activity/Vol] 132 U/L High <=37 [facility] Comment on above: Performed By: #### L 100.0100, L501.9100, L505.5000 #### [facility] [address] [place], [address] Bilirubin [Mass/Vol] 0.64 mg/dL Normal 0.00-1.[address] [facility] Comment on above: Performed By: #### L 100.0100, L501.9100, L505.5000 #### [facility] [address] [place], [address] BUN/CRE 11.8 RATIO Normal 10-20 [facility] Comment on above: Performed By: #### L 100.0100, L501.9100, L505.5000 #### [facility] [address] [place], [address] Calcium [Mass/Vol] 9.4 mg/dL Normal 7.6-11.0 [facility] Comment on above: Performed By: #### L 100.0100, L501.9100, L505.5000 #### [facility] [address] [place], [address] Chloride [Moles/Vol] 104 mmol/L Normal 98-[address] [facility] Comment on above: Performed By: #### L 100.0100, L501.9100, L505.5000 #### [facility] [address] [place], [address] CO2 [Moles/Vol] 21.6 mmol/L Normal 21.0-32.0 [facility] Comment on above: Performed By: #### L 100.0100, L501.9100, L505.5000 #### [facility] [address] [place], [address] Creatinine [Mass/Vol] 0.86 mg/dL Normal 0.70-1.20 [facility] Comment on above: Performed By: #### L 100.0100, L501.9100, L505.5000 #### [facility] [address] [place], [address] ECRCL 120.36 ml/min Normal 50-250 [facility] Comment on above: Performed By: #### L 100.0100, L501.9100, L505.5000 #### [facility] [address] [place], [address] GAP 13 Normal 5-15 [facility] Comment on above: Performed By: #### L 100.0100, L501.9100, L505.5000 #### [facility] [address] [place], [address] GFR/1.73 sq M.predicted among non-blacks MDRD (S/P/Bld) [Vol rate/Area] 102 mL/min/{1.73_m2} Normal >60 [facility] Comment on above: Result Comment: mL/m in/1.73m2 CKD-EPI Creatinine Equation (2020) Performed By: #### L 100.0100, L501.9100, L505.5000 #### [facility] [address] [place], [address] Globulin (S) [Mass/Vol] 2.9 g/dL Normal 2.2-4.2 [facility] Comment on above: Performed By: #### L 100.0100, L501.9100, L505.5000 #### [facility] [address] [place], [address] Glucose [Mass/Vol] 105 mg/dL High 70-99 [facility] Comment on above: Performed By: #### L 100.0100, L501.9100, L505.5000 #### [facility] [address] [place], [address] Potassium [Moles/Vol] 3.7 mmol/L Normal 3.3-5.1 [facility] Comment on above: Performed By: #### L 100.0100, L501.9100, L505.5000 #### [facility] [address] [place], [address] Sodium [Moles/Vol] 138 mmol/L Normal 133-145 [facility] Comment on above: Performed By: #### L 100.0100, L501.9100, L505.5000 #### [facility] [address] [place], [address] T PROT 7.0 g/dL Normal 5.9-8.4 [facility] Comment on above: Performed By: #### L 100.0100, L501.9100, L505.5000 #### [facility] [address] [place], [address] Urea nitrogen [Mass/Vol] 10 mg/dL Normal 4-19 [facility] Comment on above: Performed By: #### L 100.0100, L501.9100, L505.5000 #### [facility] [address] [place], [address] Discharge Instructionon 06-0 Discharge Instruction [facility] Medical Records Department [address] [place] [address] Instructions for Home/Discharge Instructions 02/18/25 1059 MR#: [id number] Acct: [id number] Name: SLOAN HARVEY Rep #: [id number] : 1970 55 From: Tammy Cespedes MD [...] placed): Home, Self Care 02/18/25 1244 Tammy Csepedes MD CC: Dr. Samantha Leung MD; Dr. Peggy Nicole DO; Dr. Vu Jean MD Signed Normal [facility] Electrocardiogram reportOrde red By: Blas Bergman on 02-18-2025 EKG study [facility] Cardiovascular Services [address] [place] [address] 12 Lead EKG 02/15/25 1556 MR#: [id number] Acct: [id number] Name: SLOAN HARVEY Rep #:[id number] : 1970 55 From: Blas solitario MD Attending Dr: Dr. Tammy Cespedes MD Status: ADM IN Ordering Dr: Kris Wood DO Date: Location: [facility] [place] Sex: M C Admitted: 02/15/25 Test Reason [...] QT Abnormal ECG Confirmed by Blas Bergman ([id number]), pictures editor REGINA UGALDE ([id number]) on 02/18/2025 10:49:48 AM Referred By: Kris Wood Confirmed By: Blas Bergman 02/18/25 1049 Date _ Blas Bergman MD CC: Dr. Peggy Nicole DO; Dr. Tammy Cespedes MD; Dr. Kris Wood DO ~ Signed [facility] Other Phone: Glomerular filtration rate ( GFR) estimation/1.73 sq m using serum, plasma, or whole bOrdered By: Vu Jean on 02-18-2025 GFR/1.73 sq M.predicted among non-blacks MDRD (S/P/Bld) [Vol rate/Area] 102 mL/min/{1.73_m2} >60 [facility] Comment on above: mL/min/1.73m2 CKD-EP I Creatinine Equation (2020) Laboratory - Chemistry and C hemistry - challengeOrdered By: Vu Jean on 02-18-2025 AST [Catalytic activity/Vol] 132 U/L High <38 [facility] Potassium measurement (mass/ volume)Ordered By: Vu Jean on 02-18-2025 Potassium (Unsp spec) [Mass/Vol] 3.7 mmol/L 3.3-5.1 [facility] Serum creatinine measurement (mass/volume)Ordered By: Vu Jean on 02-18-2025 Creatinine [Mass/Vol] 0.86 mg/dL 0.70-1.20 [facility] Serum globulin measurementOr dered By: Vu Jean on 02-18-2025 Globulin (S) [Mass/Vol] 2.9 g/dL 2.2-4.2 [facility] Serum glucose measurement (m ass/volume)Ordered By: uV Jean on 02-18-2025 Glucose [Mass/Vol] 105 mg/dL High 70-99 [facility] Serum or plasma alanine davidson otransferase (ALT) measurementOrdered By: Vu Jean on 02-18-2025 ALT [Catalytic activity/Vol] 120 U/L High <47 [facility] Serum or plasma albumin che urement (mass/volume)Ordered By: Vu Jean on 02-18-2025 Albumin [Mass/Vol] 4.1 g/dL 3.5-5.0 [facility] Serum or plasma albumin/glob ulin mass ratioOrdered By: Vu Jean on 02-18-2025 Albumin/Globulin [Mass ratio] 1.4 {ratio} 0.9-2.4 [facility] Serum or plasma alkaline salma sphatase measurementOrdered By: Vu Jean on 02-18-2025 ALP [Catalytic activity/Vol] 129 U/L 40-129 [facility] Serum or plasma calcium che urement (mass/volume)Ordered By: Vu Jean on 02-18-2025 Calcium [Mass/Vol] 9.4 mg/dL 7.6-11.0 [facility] Serum or plasma urea nitroge n measurement (mass/volume)Ordered By: Vu Jean on 02-18-2025 Urea nitrogen [Mass/Vol] 10 mg/dL 4-19 [facility] Sodium levelOrdered By: Regina Jean on 02-18-2025 Sodium [Moles/Vol] 138 mmol/L 133-145 [facility] Total proteinOrdered By: Ann Jean on 02-18-2025 Protein [Mass/Vol] 7.0 g/dL 5.9-8.4 [facility] Comprehensive Metabolic Prof ilsincere 02-17-2025 Albumin [Mass/Vol] 4.3 g/dL Normal 3.5-5.0 [facility] Comment on above: Performed By: #### L 500.4050 #### [facility] [address] [place], [address] Albumin/Globulin [Mass ratio] 1.4 {ratio} Normal 0.9-2.4 [facility] Comment on above: Performed By: #### L 500.4050 #### [facility] [address] [place], [address] ALK PHOS 130 U/L High 40-129 [facility] Comment on above: Performed By: #### L 500.4050 #### [facility] [address] [place], [address] ALT [Catalytic activity/Vol] 100 U/L High <=46 [facility] Comment on above: Performed By: #### L 500.4050 #### [facility] [address] [place], [address] AST [Catalytic activity/Vol] 101 U/L High <=37 [facility] Comment on above: Performed By: #### L 500.4050 #### [facility] [address] [place], [address] Bilirubin [Mass/Vol] 0.74 mg/dL Normal 0.00-1.[address] [facility] Comment on above: Performed By: #### L 500.4050 #### [facility] [address] [place], [address] BUN/CRE 13.5 RATIO Normal 10-20 [facility] Comment on above: Performed By: #### L 500.4050 #### [facility] [address] [place], [address] Calcium [Mass/Vol] 9.4 mg/dL Normal 7.6-11.0 [facility] Comment on above: Performed By: #### L 500.4050 #### [facility] [address] [place], [address] Chloride [Moles/Vol] 102 mmol/L Normal 98-[address] [facility] Comment on above: Performed By: #### L 500.4050 #### [facility] [address] [place], [address] CO2 [Moles/Vol] 25.8 mmol/L Normal 21.0-32.0 [facility] Comment on above: Performed By: #### L 500.4050 #### [facility] [address] [place], [address] Creatinine [Mass/Vol] 0.90 mg/dL Normal 0.70-1.20 [facility] Comment on above: Performed By: #### L 500.4050 #### [facility] [address] [place], [address] ECRCL 115.01 ml/min Normal 50-250 [facility] Comment on above: Performed By: #### L 500.4050 #### [facility] [address] [place], [address] GAP 11 Normal 5-15 [facility] Comment on above: Performed By: #### L 500.4050 #### [facility] [address] [place], [address] GFR/1.73 sq M.predicted among non-blacks MDRD (S/P/Bld) [Vol rate/Area] 100 mL/min/{1.73_m2} Normal >60 [facility] Comment on above: Result Comment: mL/m in/1.73m2 CKD-EPI Creatinine Equation (2020) Performed By: #### L 500.4050 #### [facility] [address] [place], [address] Globulin (S) [Mass/Vol] 3.1 g/dL Normal 2.2-4.2 [facility] Comment on above: Performed By: #### L 500.4050 #### [facility] [address] [place], [address] Glucose [Mass/Vol] 102 mg/dL High 70-99 [facility] Comment on above: Performed By: #### L 500.4050 #### [facility] [address] [place], [address] Potassium [Moles/Vol] 3.9 mmol/L Normal 3.3-5.1 [facility] Comment on above: Performed By: #### L 500.4050 #### [facility] [address] [place], [address] Sodium [Moles/Vol] 139 mmol/L Normal 133-145 [facility] Comment on above: Performed By: #### L 500.4050 #### [facility] [address] [place], [address] T PROT 7.4 g/dL Normal 5.9-8.4 [facility] Comment on above: Performed By: #### L 500.4050 #### [facility] [address] [place], [address] Urea nitrogen [Mass/Vol] 12 mg/dL Normal 4-19 [facility] Comment on above: Performed By: #### L 500.4050 #### [facility] [address] [place], [address] Absolute lymphocyte countOrd ered By: Samantha Leung on 02-16-2025 Lymphocytes Auto (Unsp spec) [#/Vol] 1.34 10*3/uL 0.83-4.51 [facility] Absolute neutrophil countOrd ered By: Samantha Leung on 02-16-2025 Neutrophils (Bld) [#/Vol] 2.7 10*3/uL 2.0-7.7 [facility] Automated lymphocyte count a s percentage of total leukocytesOrdered By: Samantha Leung on 02-16-2025 Lymphocytes/100 WBC Auto (Unsp spec) 27.9 % 19-41 [facility] Basic Metabolic Profile (BMP )on 02-16-2025 BUN/CRE 15.4 RATIO Normal 10-20 [facility] Comment on above: Performed By: #### L 300.3900 #### [facility] [address] [place], [address] Calcium [Mass/Vol] 9.1 mg/dL Normal 7.6-11.0 [facility] Comment on above: Performed By: #### L 300.3900 #### [facility] [address] [place], [address] Chloride [Moles/Vol] 99 mmol/L Normal 98-[address] [facility] Comment on above: Performed By: #### L 300.3900 #### [facility] [address] [place], [address] CO2 [Moles/Vol] 25.4 mmol/L Normal 21.0-32.0 [facility] Comment on above: Performed By: #### L 300.3900 #### [facility] [address] [place], [address] Creatinine [Mass/Vol] 0.92 mg/dL Normal 0.70-1.20 [facility] Comment on above: Performed By: #### L 300.3900 #### [facility] [address] [place], [address] ECRCL 112.51 ml/min Normal 50-250 [facility] Comment on above: Performed By: #### L 300.3900 #### [facility] [address] [place], [address] GAP 12 Normal 5-15 [facility] Comment on above: Performed By: #### L 300.3900 #### [facility] [address] [place], [address] GFR/1.73 sq M.predicted among non-blacks MDRD (S/P/Bld) [Vol rate/Area] 98 mL/min/{1.73_m2} Normal >60 [facility] Comment on above: Result Comment: mL/m in/1.73m2 CKD-EPI Creatinine Equation (2020) Performed By: #### L 300.3900 #### [facility] [address] [place], [address] Glucose [Mass/Vol] 95 mg/dL Normal 70-99 [facility] Comment on above: Performed By: #### L 300.3900 #### [facility] [address] [place], [address] Potassium [Moles/Vol] 4.2 mmol/L Normal 3.3-5.1 [facility] Comment on above: Result Comment: Hemo lysis present, Results??could be affected. ?? Performed By: #### L 300.3900 #### [facility] [address] [place], [address] Sodium [Moles/Vol] 137 mmol/L Normal 133-145 [facility] Comment on above: Performed By: #### L 300.3900 #### [facility] [address] [place], [address] Urea nitrogen [Mass/Vol] 14 mg/dL Normal 4-19 [facility] Comment on above: Performed By: #### L 300.3900 #### [facility] [address] [place], [address] Basophil percentageOrdered B y: Samantha Leung on 02-16-2025 Basophils/100 WBC (Bld) 1.0 % 0-1 [facility] Bilirubin directOrdered By: Samantha Leung on 02-16-2025 Bilirubin.direct [Mass/Vol] 0.46 mg/dL High 0.00-0.30 [facility] Comment on above: Hemolysis present, R esults could be affected. CBC W/Diff, Automatedon 05-3 Absolute Lymph 1.34 X10 3/uL Normal 0.83-4.51 [facility] Comment on above: Performed By: #### L 300.3900 #### [facility] [address] [place], [address] Absolute Neut 2.7 X10 3/uL Normal 2.0-7.7 [facility] Comment on above: Performed By: #### L 300.3900 #### [facility] [address] [place], [address] Basophils/100 WBC (Bld) 1.0 % Normal 0-1 [facility] Comment on above: Performed By: #### L 300.3900 #### [facility] [address] [place], [address] Eosinophils/100 WBC (Bld) 3.5 % Normal 0-5 [facility] Comment on above: Performed By: #### L 300.3900 #### [facility] [address] [place], [address] Erythrocyte distribution width (RBC) [Ratio] 12.1 % Normal 11.6-14.6 [facility] Comment on above: Performed By: #### L 300.3900 #### [facility] [address] [place], [address] Hematocrit (Bld) [Volume fraction] 41.7 % Normal 40-54 [facility] Comment on above: Performed By: #### L 300.3900 #### [facility] [address] [place], [address] Hemoglobin (Bld) [Mass/Vol] 14.3 g/dL Normal 13.0-16.5 [facility] Comment on above: Performed By: #### L 300.3900 #### [facility] [address] [place], [address] IG% 0.200 Normal 0.0-0.9 [facility] Comment on above: Result Comment: IG% - Immature Granulocytes (promyelocytes, myelocytes and metamyelocytes) > 1% indicates that a LEFT SHIFT is Present. Performed By: #### L 300.3900 #### [facility] [address] [place], [address] Lymphocytes/100 WBC (Bld) 27.9 % Normal 19-41 [facility] Comment on above: Performed By: #### L 300.3900 #### [facility] [address] [place], [address] MCH (RBC) [Entitic mass] 31.0 pg Normal 27.0-32.0 [facility] Comment on above: Performed By: #### L 300.3900 #### [facility] [address] [place], [address] MCHC (RBC) [Mass/Vol] 34.3 g/dL Normal 32-36 [facility] Comment on above: Performed By: #### L 300.3900 #### [facility] [address] [place], [address] MCV (RBC) [Entitic vol] 90.5 fL Normal 80-94 [facility] Comment on above: Performed By: #### L 300.3900 #### [facility] [address] [place], [address] Monocytes/100 WBC (Bld) 10.4 % High 0-10 [facility] Comment on above: Performed By: #### L 300.3900 #### [facility] [address] [place], [address] Neutrophils/100 WBC (Bld) 57.0 % Normal 47-70 [facility] Comment on above: Performed By: #### L 300.3900 #### [facility] [address] [place], [address] Nucleated RBC (Bld) [#/Vol] 0 10*3/uL Normal 0-5 [facility] Comment on above: Performed By: #### L 300.3900 #### [facility] [address] [place], [address] Platelet mean volume (Bld) [Entitic vol] 9.4 fL Normal 6.2-12.0 [facility] Comment on above: Performed By: #### L 300.3900 #### [facility] [address] [place], [address] Platelets (Bld) [#/Vol] 189 10*3/uL Normal 150-450 [facility] Comment on above: Performed By: #### L 300.3900 #### [facility] [address] [place], [address] RBC (Bld) [#/Vol] 4.61 10*6/uL Normal 4.6-6.2 [facility] Comment on above: Performed By: #### L 300.3900 #### [facility] [address] [place], [address] RDW SD 40.1 fl Normal 35.1-43.9 [facility] Comment on above: Performed By: #### L 300.3900 #### [facility] [address] [place], [address] WBC (Bld) [#/Vol] 4.8 10*3/uL Normal 4.4-11.0 [facility] Comment on above: Performed By: #### L 300.3900 #### [facility] [address] [place], [address] Comprehensive Metabolic Prof [facility] 02-16-2025 Albumin/Globulin [Mass ratio] 1.4 {ratio} Normal 0.9-2.4 [facility] Comment on above: Performed By: #### L 300.3900 #### [facility] [address] [place], [place], [id number] Eosinophil percentageOrdered By: Samantha Leung on 02-16-2025 Eosinophils/100 WBC (Bld) 3.5 % 0-5 [facility] Erythrocyte distribution wid th ratioOrdered By: Samantha Leung on 02-16-2025 Erythrocyte distribution width (RBC) [Ratio] 12.1 % 11.6-14.6 [facility] Erythrocyte distribution wid th standard deviationOrdered By: Samantha Leung on 02-16-2025 Erythrocyte distribution width (RBC) [Ratio] 40.1 fl 35.1-43.9 [facility] Hematocrit Auto (Bld) [Volum e fraction]Ordered By: Samantha Leung on 02-16-2025 Hematocrit (Bld) [Volume fraction] 41.7 % 40-54 [facility] Hemoglobin measurementOrdere d By: Samantha Leung on 02-16-2025 Hemoglobin (Bld) [Mass/Vol] 14.3 g/dL 13.0-16.5 [facility] Immature granulocytes/100 WB C Auto (Bld)Ordered By: Samantha Leung on 02-16-2025 Immature granulocytes/100 WBC (Bld) 0.200 % 0.0-0.9 [facility] Comment on above: IG% - Immature Granu locytes (promyelocytes, myelocytes and metamyelocytes) > 1% indicates that a LEFT SHIFT is Present. International normalized rat io (INR) calculationOrdered By: Samantha Leung on 02-16-2025 INR Coag (Bld) [Relative time] 1.1 {INR} [facility] Liver Profileon 02-16-2025 Albumin [Mass/Vol] 4.1 g/dL Normal 3.5-5.0 [facility] Comment on above: Performed By: #### L 300.3900 #### [facility] [address] [place], [address] ALK PHOS 107 U/L Normal 40-129 [facility] Comment on above: Performed By: #### L 300.3900 #### [facility] [address] [place], [address] ALT [Catalytic activity/Vol] 101 U/L High <=46 [facility] Comment on above: Performed By: #### L 300.3900 #### [facility] [address] [place], [address] AST [Catalytic activity/Vol] 133 U/L High <=37 [facility] Comment on above: Result Comment: Hemo lysis present, Results??could be affected. ?? Performed By: #### L 300.3900 #### [facility] [address] [place], [address] Bilirubin [Mass/Vol] 1.43 mg/dL High 0.00-1.[address] [facility] Comment on above: Performed By: #### L 300.3900 #### [facility] [address] [place], [address] Bilirubin.direct [Mass/Vol] 0.46 mg/dL High 0.00-0.30 [facility] Comment on above: Result Comment: Hemo lysis present, Results??could be affected. ?? Performed By: #### L 300.3900 #### [facility] [address] [place], [address] Globulin (S) [Mass/Vol] 3.0 g/dL Normal 2.2-4.2 [facility] Comment on above: Performed By: #### L 300.3900 #### [facility] [address] [place], [address] T PROT 7.1 g/dL Normal 5.9-8.4 [facility] Comment on above: Performed By: #### L 300.3900 #### [facility] [address] [place], [address] MCV (mean corpuscular volume ) determinationOrdered By: Samantha Leung on 02-16-2025 MCV (RBC) [Entitic vol] 90.5 fL 80-94 [facility] Magnesiumon 02-16-2025 Magnesium [Mass/Vol] 2.2 mg/dL Normal 1.5-2.[address] [facility] Comment on above: Performed By: #### L 300.3900 #### [facility] [address] [place], [address] Magnesium measurement (mass/ volume)Ordered By: Samantha Leung on 02-16-2025 Magnesium (Unsp spec) [Mass/Vol] 2.2 mg/dL 1.5-2.2 [facility] Mean corpuscular hemoglobin (MCH) determinationOrdered By: Samantha Leung on 02-16-2025 MCH (RBC) [Entitic mass] 31.0 pg 27.0-32.0 [facility] Mean corpuscular hemoglobin concentration (MCHC) determinationOrdered By: Samantha Leung on 02-16-2025 MCHC (RBC) [Mass/Vol] 34.3 g/dL 32-36 [facility] Mean platelet volume determi nationOrdered By: Samantha Leung on 02-16-2025 Platelet mean volume (Bld) [Entitic vol] 9.4 fL 6.2-12.0 [facility] Monocyte percentageOrdered B y: Samantha Leung on 02-16-2025 Monocytes/100 WBC (Bld) 10.4 % High 0-10 [facility] Neutrophil percentageOrdered By: Samantha Leung on 02-16-2025 Neutrophils/100 WBC (Bld) 57.0 % 47-70 [facility] Nucleated red blood cell per centageOrdered By: Samantha Leung on 02-16-2025 Nucleated RBC/100 WBC (Bld) [Ratio] 0 % 0-5 [facility] Phosphoruson 02-16-2025 Phosphate [Mass/Vol] 3.7 mg/dL Normal 2.7-4.[address] [facility] Comment on above: Performed By: #### L 300.3900 #### [facility] [address] [place], [place], [address] Platelet countOrdered By: Bobby Leung on 02-16-2025 Platelets (Bld) [#/Vol] 189 10*3/uL 150-450 [facility] Prothrombin Time w/INRon INR Coag (PPP) [Relative time] 1.1 {INR} Normal [facility] Comment on above: Performed By: #### L 300.3900 #### [facility] [address] [place], [address] PT Coag (PPP) [Time] 14.4 s Normal 11.7-14.[address] [facility] Comment on above: Performed By: #### L 300.3900 #### [facility] [address] [place], [address] Prothrombin timeOrdered By: Samantha Leung on 02-16-2025 PT Coag (PPP) [Time] 14.4 s 11.7-14.[address] [facility] RBC Auto (Bld) [#/Vol]Ordere d By: Samantha Leung on 02-16-2025 RBC (Bld) [#/Vol] 4.61 10*6/uL 4.6-6.2 [facility] TSH DL <= 0.005 mIU/L QnOrde red By: Samantha Leung on 02-16-2025 TSH Qn 3.250 uIU/mL 0.300-4.200 [facility] Thyroid Stim Hormone (TSH)on 02-16-2025 TSH 3.250 uIU/mL Normal 0.300-4.200 [facility] Comment on above: Performed By: #### L 300.3900 #### [facility] [address] [facility] [place], [address] ([address] White blood cell (WBC) count Ordered By: Samantha Leung on 02-16-2025 WBC (Bld) [#/Vol] 4.8 10*3/uL 4.4-11.0 [facility] 12 Lead EKGon 02-15-2025 12 Lead EKG [facility] [address] [place] [address] 12 Lead EKG 02/15/25 1556 MR#: [id number] Acct: [id number] Name: SLOAN HARVEY Rep #: [id number] : 1970 55 From: Blas Bergman MD Attending Dr: Dr. Tammy Cespedes MD Status: AD M IN Ordering Dr: Kris Wood DO Date: 02/15/25 Location: [place]3 Sex: M C Admitted: 02/15/25 Test Reason [...] QT Abnormal ECG Confirmed by Blas Bergman ([id number]), pictures editor REGINA UGALDE ([id number]) on 02/18/2025 10:49:48 AM Referred By: Kris Wood Confirmed By: Blas Bergman 02/18/25 1049 Date Blas Bergman MD CC: Dr. Peggy Nicole DO; Dr. Tammy Cespedes MD; Dr. Kris Wood DO Signed Normal [facility] Absolute lymphocyte countOrd ered By: Kris Wood on 02-15-2025 Lymphocytes Auto (Unsp spec) [#/Vol] 1.64 10*3/uL 0.83-4.51 [facility] Absolute neutrophil countOrd ered By: Kris Wood on 02-15-2025 Neutrophils (Bld) [#/Vol] 4.6 10*3/uL 2.0-7.7 [facility] Alcohol, Blood (Medical)-Ser umon 02-15-2025 SERUM ETOH 97.6 mg/dL High <=10.0 [facility] Comment on above: Result Comment: This test is for medical purposes only. The legal definition of intoxication varies according to local law. Performed By: #### L 100.0100, L501.9100, L505.5000 #### [facility] [address] [place], [address] Amphetamine detection with 1 000 ng/mL as cutoffOrdered By: Kris Israel on 02-15-2025 Amphetamines Screen method >1000 ng/mL Ql (U) Negative < 200 ng/mL [facility] Anion gap in Serum or Plasma Ordered By: Remus Israel on 02-15-2025 Anion gap [Moles/Vol] 18 mmol/L High 5-15 [facility] Automated lymphocyte count a s percentage of total leukocytesOrdered By: [facility] Wood on 02-15-2025 Lymphocytes/100 WBC Auto (Unsp spec) 23.7 % - [facility] BUN/creatinine ratioOrdered By: [facility] on 02-15-2025 Urea nitrogen/Creatinine [Mass ratio] 14.6 mg/mg 10- [facility] Basophil percentageOrdered B y: Remus Israel on 02-15-2025 Basophils/100 WBC (Bld) 1.0 % 0-1 [facility] Bilirubin, totalOrdered By: [facility] Israel on 02-15-2025 Bilirubin [Mass/Vol] 1.02 mg/dL 0.00-1.[address] [facility] CBC W/Diff, Automatedon 01-19 Absolute Lymph 1.64 X10 3/uL Normal 0.83-4.51 [facility] Comment on above: Performed By: #### L 100.0100, L501.9100, L505.5000 #### [facility] [address] [place], [address] Absolute Neut 4.6 X10 3/uL Normal 2.0-7.7 [facility] Comment on above: Performed By: #### L 100.0100, L501.9100, L505.5000 #### [facility] [address] [place], [address] Basophils/100 WBC (Bld) 1.0 % Normal 0-1 [facility] Comment on above: Performed By: #### L 100.0100, L501.9100, L505.5000 #### [facility] [address] [place], [address] Eosinophils/100 WBC (Bld) 1.9 % Normal 0-5 [facility] Comment on above: Performed By: #### L 100.0100, L501.9100, L505.5000 #### [facility] [address] [place], [address] Erythrocyte distribution width (RBC) [Ratio] 12.1 % Normal 11.6-14.6 [facility] Comment on above: Performed By: #### L 100.0100, L501.9100, L505.5000 #### [facility] [address] [place], [address] Hematocrit (Bld) [Volume fraction] 42.9 % Normal 40-54 [facility] Comment on above: Performed By: #### L 100.0100, L501.9100, L505.5000 #### [facility] [address] [place], [address] Hemoglobin (Bld) [Mass/Vol] 14.8 g/dL Normal 13.0-16.5 [facility] Comment on above: Performed By: #### L 100.0100, L501.9100, L505.5000 #### [facility] [address] [place], [address] IG% 0.300 Normal 0.0-0.9 [facility] Comment on above: Result Comment: IG% - Immature Granulocytes (promyelocytes, myelocytes and metamyelocytes) > 1% indicates that a LEFT SHIFT is Present. Performed By: #### L 100.0100, L501.9100, L505.5000 #### [facility] [address] [place], [address] Lymphocytes/100 WBC (Bld) 23.7 % Normal 19-41 [facility] Comment on above: Performed By: #### L 100.0100, L501.9100, L505.5000 #### [facility] [address] [place], [address] MCH (RBC) [Entitic mass] 30.7 pg Normal 27.0-32.0 [facility] Comment on above: Performed By: #### L 100.0100, L501.9100, L505.5000 #### [facility] [address] [place], [address] MCHC (RBC) [Mass/Vol] 34.5 g/dL Normal 32-36 [facility] Comment on above: Performed By: #### L 100.0100, L501.9100, L505.5000 #### [facility] [address] [place], [address] MCV (RBC) [Entitic vol] 89.0 fL Normal 80-94 [facility] Comment on above: Performed By: #### L 100.0100, L501.9100, L505.5000 #### [facility] [address] [place], [address] Monocytes/100 WBC (Bld) 6.9 % Normal 0-10 [facility] Comment on above: Performed By: #### L 100.0100, L501.9100, L505.5000 #### [facility] [address] [place], [address] Neutrophils/100 WBC (Bld) 66.2 % Normal 47-70 [facility] Comment on above: Performed By: #### L 100.0100, L501.9100, L505.5000 #### [facility] [address] [place], [address] Nucleated RBC (Bld) [#/Vol] 0 10*3/uL Normal 0-5 [facility] Comment on above: Performed By: #### L 100.0100, L501.9100, L505.5000 #### [facility] [address] [place], [address] Platelet mean volume (Bld) [Entitic vol] 9.1 fL Normal 6.2-12.0 [facility] Comment on above: Performed By: #### L 100.0100, L501.9100, L505.5000 #### [facility] [address] [place], [address] Platelets (Bld) [#/Vol] 216 10*3/uL Normal 150-450 [facility] Comment on above: Performed By: #### L 100.0100, L501.9100, L505.5000 #### [facility] [address] [place], [address] RBC (Bld) [#/Vol] 4.82 10*6/uL Normal 4.6-6.2 [facility] Comment on above: Performed By: #### L 100.0100, L501.9100, L505.5000 #### [facility] [address] [place], [address] RDW SD 40.0 fl Normal 35.1-43.9 [facility] Comment on above: Performed By: #### L 100.0100, L501.9100, L505.5000 #### [facility] [address] [place], [address] WBC (Bld) [#/Vol] 6.9 10*3/uL Normal 4.4-11.0 [facility] Comment on above: Performed By: #### L 100.0100, L501.9100, L505.5000 #### [facility] [address] [place], [address] Carbon dioxide, total [Moles /volume] in Central venous bloodOrdered By: Kris Wood on 02-15-2025 CO2 [Moles/Vol] 20.7 mmol/L Low 21.0-32.0 [facility] Chloride assayOrdered By: Radha Wood on 02-15-2025 Chloride [Moles/Vol] 96 mmol/L Low 98-[address] [facility] Comprehensive Metabolic Prof ilon 02-15-2025 Albumin [Mass/Vol] 4.5 g/dL Normal 3.5-5.0 [facility] Comment on above: Performed By: #### L 501.5200 #### [facility] [address] [place], [address] Albumin/Globulin [Mass ratio] 1.4 {ratio} Normal 0.9-2.4 [facility] Comment on above: Performed By: #### L 501.5200 #### [facility] [address] [place], [address] ALK PHOS 112 U/L Normal 40-129 [facility] Comment on above: Performed By: #### L 501.5200 #### [facility] [address] [place], [address] ALT [Catalytic activity/Vol] 115 U/L High <=46 [facility] Comment on above: Performed By: #### L 608.5200 #### [facility] [address] [place], [address] AST [Catalytic activity/Vol] 153 U/L High <=37 [facility] Comment on above: Performed By: #### L 151.5200 #### [facility] [address] [place], [address] Bilirubin [Mass/Vol] 1.02 mg/dL Normal 0.00-1.[address] [facility] Comment on above: Performed By: #### L 132.5200 #### [facility] [address] [place], [address] BUN/CRE 14.6 RATIO Normal 10-20 [facility] Comment on above: Performed By: #### L 501.5200 #### [facility] [address] [place], [address] Calcium [Mass/Vol] 9.3 mg/dL Normal 7.6-11.0 [facility] Comment on above: Performed By: #### L 501.5200 #### [facility] [address] [place], [address] Chloride [Moles/Vol] 96 mmol/L Low 98-[address] [facility] Comment on above: Performed By: #### L 501.5200 #### [facility] [address] [place], [address] CO2 [Moles/Vol] 20.7 mmol/L Low 21.0-32.0 [facility] Comment on above: Performed By: #### L 501.5200 #### [facility] [address] [place], [address] Creatinine [Mass/Vol] 1.19 mg/dL Normal 0.70-1.20 [facility] Comment on above: Performed By: #### L 501.5200 #### [facility] [address] [place], [address] ECRCL 87.20 ml/min Normal 50-250 [facility] Comment on above: Performed By: #### L 501.5200 #### [facility] [address] [place], [address] GAP 18 High 5-15 [facility] Comment on above: Performed By: #### L 501.5200 #### [facility] [address] [place], [address] GFR/1.73 sq M.predicted among non-blacks MDRD (S/P/Bld) [Vol rate/Area] 72 mL/min/{1.73_m2} Normal >60 [facility] Comment on above: Result Comment: mL/m in/1.73m2 CKD-EPI Creatinine Equation (2020) Performed By: #### L 501.5200 #### [facility] [address] [place], [address] Globulin (S) [Mass/Vol] 3.2 g/dL Normal 2.2-4.2 [facility] Comment on above: Performed By: #### L 501.5200 #### [facility] [address] [place], [address] Glucose [Mass/Vol] 142 mg/dL High 70-99 [facility] Comment on above: Performed By: #### L 501.5200 #### [facility] [address] [place], [address] Potassium [Moles/Vol] 3.3 mmol/L Normal 3.3-5.1 [facility] Comment on above: Performed By: #### L 501.5200 #### [facility] [address] [place], [address] Sodium [Moles/Vol] 135 mmol/L Normal 133-145 [facility] Comment on above: Performed By: #### L 501.5200 #### [facility] [address] [place], [address] T PROT 7.8 g/dL Normal 5.9-8.4 [facility] Comment on above: Performed By: #### L 501.5200 #### [facility] [address] [place], [address] Urea nitrogen [Mass/Vol] 17 mg/dL Normal 4-19 [facility] Comment on above: Performed By: #### L 501.5200 #### [facility] [address] [place], [address] Emergency Department Summary on 02-15-2025 Emergency Department Summary [facility] Medical Records Department [address] [place] [address] Emergency Department Summary 02/15/25 MR#: [id number] Acct: [id number] Name: SLOAN HARVEY Rep #: [id number] : 1970 55 From: Kris Wood DO PCP: Dr. Peggy Nicole, DO Status:ADM IN Location: [place]3 [id number] HPI History of Present Illness Chief Complaint: [...] has no stenting. He does smoke cigarettes. [facility] Medical History Anxiety Depression Hypertension Home [...] Effort an (more content not included)... Normal [facility] Eosinophil percentageOrdered By: Belindaus Israel on 02-15-2025 Eosinophils/100 WBC (Bld) 1.9 % 0-5 [facility] Erythrocyte distribution wid th ratioOrdered By: [place] Israel on 02-15-2025 Erythrocyte distribution width (RBC) [Ratio] 12.1 % 11.6-14.6 [facility] Erythrocyte distribution wid th standard deviationOrdered By: [facility] Wood on 02-15-2025 Erythrocyte distribution width (RBC) [Ratio] 40.0 fl 35.1-43.9 [facility] Glomerular filtration rate ( GFR) estimation/1.73 sq m using serum, plasma, or whole bOrdered By: Kris Wood on 02-15-2025 GFR/1.73 sq M.predicted among non-blacks MDRD (S/P/Bld) [Vol rate/Area] 72 mL/min/{1.73_m2} >60 [facility] Comment on above: mL/min/1.73m2 CKD-EP I Creatinine Equation (2020) H AND P Exam - Hospitaliston 02-15-2025 H&P Exam - Hospitalist [facility] Medical Records Department [address] [place] [address] H P Exam - Hospitalist 02/15/25 1742 MR#: [id number] Acct: [id number] Name: SLOAN HARVEY Rep #: [id number] : 1970 55 From: Samantha Leung MD [...] no other drug use. Previously admitted to [facility] for detoxification about 14 months back, [...] T 15, bilirubin 1.02, Ethyl alcohol 97.6 [facility] Medical History Anxiety Depression Hypertension Home [...] Temporal Pulse (more content not included)... Normal [facility] Hematocrit Auto (Bld) [Volum e fraction]Ordered By: Kris Wood on 02-15-2025 Hematocrit (Bld) [Volume fraction] 42.9 % 40-54 [facility] Hemoglobin measurementOrdere d By: Kris Wood on 02-15-2025 Hemoglobin (Bld) [Mass/Vol] 14.8 g/dL 13.0-16.5 [facility] Immature granulocytes/100 WB C Auto (Bld)Ordered By: Kris Wood on 02-15-2025 Immature granulocytes/100 WBC (Bld) 0.300 % 0.0-0.9 [facility] Comment on above: IG% - Immature Granu locytes (promyelocytes, myelocytes and metamyelocytes) > 1% indicates that a LEFT SHIFT is Present. L499.0042on 02-15-2025 Trop T High Sen 14 ng/L Normal <=22 [facility] Comment on above: Performed By: #### L 499.0042 #### [facility] [address] [place], [place], [address] L499.0043on 02-15-2025 Trop T High Sen 14 ng/L Normal <=22 [facility] Comment on above: Performed By: #### L 501.5200 #### [facility] [address] [place], [address] L501.4021on 02-15-2025 Trop T High Sen 15 ng/L Normal <=22 [facility] Comment on above: Performed By: #### L 045.5200 #### [facility] [address] [facility] [place], [address] Laboratory - Chemistry and C hemistry - challengeOrdered By: Kris Wood on 02-15-2025 AST [Catalytic activity/Vol] 153 U/L High <38 [facility] MCV (mean corpuscular volume ) determinationOrdered By: Kris Wood on 02-15-2025 MCV (RBC) [Entitic vol] 89.0 fL 80-94 [facility] Mean corpuscular hemoglobin (MCH) determinationOrdered By: Kris Wood on 02-15-2025 MCH (RBC) [Entitic mass] 30.7 pg 27.0-32.0 [facility] Mean corpuscular hemoglobin concentration (MCHC) determinationOrdered By: Kris Wood on 02-15-2025 MCHC (RBC) [Mass/Vol] 34.5 g/dL 32-36 [facility] Mean platelet volume determi nationOrdered By: Kris Wood on 02-15-2025 Platelet mean volume (Bld) [Entitic vol] 9.1 fL 6.2-12.0 [facility] Monocyte percentageOrdered B y: Kris Wood on 02-15-2025 Monocytes/100 WBC (Bld) 6.9 % 0-10 [facility] Neutrophil percentageOrdered By: Kris Wood on 02-15-2025 Neutrophils/100 WBC (Bld) 66.2 % 47-70 [facility] No Panel InformationOrdered By: Kris Wood on 02-15-2025 Urine Buprenorphine Qualitative Negative < 200 ng/mL [facility] Urine Oxycodone Screen Negative < 100 ng/mL [facility] Nucleated red blood cell per centageOrdered By: Kris Wood on 02-15-2025 Nucleated RBC/100 WBC (Bld) [Ratio] 0 % 0-5 [facility] Platelet countOrdered By: Radha Wood on 02-15-2025 Platelets (Bld) [#/Vol] 216 10*3/uL 150-450 [facility] Potassium measurement (mass/ volume)Ordered By: Kris Wood on 02-15-2025 Potassium (Unsp spec) [Mass/Vol] 3.3 mmol/L 3.3-5.1 [facility] Prothrombin Time w/INRon INR Coag (PPP) [Relative time] 1.1 {INR} Normal [facility] Comment on above: Performed By: #### L 300.7333 #### [facility] [address] [place], [address] PT Coag (PPP) [Time] 14.6 s Normal 11.7-14.[address] [facility] Comment on above: Performed By: #### L 300.3900 #### [facility] [place], [address] Quantitative urine opiates m easurementOrdered By: Kris Wood on 02-15-2025 Opiates Ql (U) Negative < 300 ng/mL [facility] RBC Auto (Bld) [#/Vol]Ordere d By: Kris Wood on 02-15-2025 RBC (Bld) [#/Vol] 4.82 10*6/uL 4.6-6.2 [facility] Screening urine fentanyl angela surementOrdered By: Kris Wood on 02-15-2025 fentaNYL Screen Ql (U) Negative [facility] Serum creatinine measurement (mass/volume)Ordered By: Kris Wood on 02-15-2025 Creatinine [Mass/Vol] 1.19 mg/dL 0.70-1.20 [facility] Serum globulin measurementOr dered By: Kris Wood on 02-15-2025 Globulin (S) [Mass/Vol] 3.2 g/dL 2.2-4.2 [facility] Serum glucose measurement (m ass/volume)Ordered By: Kris Wood on 02-15-2025 Glucose [Mass/Vol] 142 mg/dL High 70-99 [facility] Serum or plasma alanine davidson otransferase (ALT) measurementOrdered By: Kris Wood on 02-15-2025 ALT [Catalytic activity/Vol] 115 U/L High <47 [facility] Serum or plasma albumin che urement (mass/volume)Ordered By: Kris Wood on 02-15-2025 Albumin [Mass/Vol] 4.5 g/dL 3.5-5.0 [facility] Serum or plasma albumin/glob ulin mass ratioOrdered By: [facility] on 02-15-2025 Albumin/Globulin [Mass ratio] 1.4 {ratio} 0.9-2.4 [facility] Serum or plasma alkaline salma sphatase measurementOrdered By: Kris Wood on 02-15-2025 ALP [Catalytic activity/Vol] 112 U/L 40-129 [facility] Serum or plasma calcium che urement (mass/volume)Ordered By: Kris Wood on 02-15-2025 Calcium [Mass/Vol] 9.3 mg/dL 7.6-11.0 [facility] Serum or plasma ethanol che urement (mass/volume)Ordered By: Kris Castanondelicia on 02-15-2025 Ethanol [Mass/Vol] 97.6 mg/dL High <10.1 [facility] Comment on above: This test is for med ical purposes only. The legal definition of intoxication varies according to local law. Serum or plasma urea nitroge n measurement (mass/volume)Ordered By: Kris Castanondelicia on 02-15-2025 Urea nitrogen [Mass/Vol] 17 mg/dL 4-19 [facility] Sodium levelOrdered By: Alex gibbs Israel on 02-15-2025 Sodium [Moles/Vol] 135 mmol/L 133-145 [facility] Total proteinOrdered By: Belinda Castanondelicia on 02-15-2025 Protein [Mass/Vol] 7.8 g/dL 5.9-8.4 [facility] Troponin T.cardiac [Mass/vol ume] in Serum or Plasma by High sensitivity methodOrdered By: Kris Castanondelicia on 02-15-2025 Troponin T.cardiac High sensitivity method [Mass/Vol] 14 ng/L <22 [facility] Troponin T.cardiac High sensitivity method [Mass/Vol] 14 ng/L <22 [facility] Troponin T.cardiac High sensitivity method [Mass/Vol] 15 ng/L <22 [facility] Urine Drug Screen (VISTA)on 02-15-2025 AMPHETAMINES Negative Normal <1000 ng/mL [facility] Comment on above: Order Comment: UNK Performed By: #### L 100.0100, L501.9100, L505.5000 #### [facility] [address] [place], [place], [id number] BARBITIURATES Negative Normal < 200 ng/mL [facility] Comment on above: Order Comment: UNK Performed By: #### L 100.0100, L501.9100, L505.5000 #### [facility] [address] [place], [address] BENZODIAZIPINE Negative Normal < 200 ng/mL [facility] Comment on above: Order Comment: UNK Performed By: #### L 100.0100, L501.9100, L505.5000 #### [facility] [address] [place], [address] BUP Ur Drug Scr Negative Normal < 200 ng/mL [facility] Comment on above: Order Comment: UNK Performed By: #### L 100.0100, L501.9100, L505.5000 #### [facility] [address] [place], [address] COCAINE Negative Normal < 300 ng/mL [facility] Comment on above: Order Comment: UNK Performed By: #### L 100.0100, L501.9100, L505.5000 #### [facility] [address] [place], [address] Fentanyl Negative Normal [facility] Comment on above: Order Comment: UNK Performed By: #### L 100.0100, L501.9100, L505.5000 #### [facility] [address] [place], [address] METHADONE Negative Normal < 300 ng/mL [facility] Comment on above: Order Comment: UNK Performed By: #### L 100.0100, L501.9100, L505.5000 #### [facility] [address] [place], [address] OPIATES Negative Normal < 300 ng/mL [facility] Comment on above: Order Comment: UNK Performed By: #### L 100.0100, L501.9100, L505.5000 #### [facility] [address] [place], [address] OXYCODONE Negative Normal < 100 ng/mL [facility] Comment on above: Order Comment: UNK Performed By: #### L 100.0100, L501.9100, L505.5000 #### [facility] [address] [place], [address] PCP Negative Normal < 25 ng/mL [facility] Comment on above: Order Comment: UNK Performed By: #### L 100.0100, L501.9100, L505.5000 #### [facility] [address] [place], [address] THC Negative Normal < 50 ng/mL [facility] Comment on above: Order Comment: UNK Performed By: #### L 100.0100, L501.9100, L505.5000 #### [facility] [address] [place], [address] Urine benzodiazepine levelOr dered By: Kris Wood on 02-15-2025 Benzodiazepines Ql (U) Negative < 200 ng/mL [facility] Urine cocaine levelOrdered B y: Remus Israel on 02-15-2025 Cocaine Ql (U) Negative < 300 ng/mL [facility] Urine pgxfw-7-xktaoekpyrhfal abinol (THC) measurementOrdered By: Remus Wood on 02-15-2025 Cannabinoids Screen Ql (U) Negative < 50 ng/mL [facility] Urine phencyclidine (PCP) de tectionOrdered By: Remus Wood on 02-15-2025 Phencyclidine Ql (U) Negative < 25 ng/mL [facility] White blood cell (WBC) count Ordered By: Kris Wood on 02-15-2025 WBC (Bld) [#/Vol] 6.9 10*3/uL 4.4-11.0 [facility] CNOVon 07-26-2024 CNOV Office Visit ([facility] ) -- SLOAN HARVEY ([id number]) 1970 M [facility] Date Time Provider Department 07/26/24 7:15 PM DIANA ROBERTSON [facility] During your visit today, we recorded the following information about you: Temperature Pulse Respiration Blood pressure 97 degrees 64/minute 18/minute 113/75 Weight 108.7 kg Diana Robertson APRN.CNP 07/26/2024 7:49 PM Signed Subjective patient complains of dental pain on the left lower jaw. Patient says has been a couple weeks. Patient says it just started getting worse over the last couple days. Patient denies any fever chills nausea vomiting shortness of breath or chest pain. The history is provided by the patient. No high school foreign language tutor was used. Dental Problem Review of Systems [...] History of alcoholism (HCC) SVT (supraventricular tachycardia) ([facility]) s/p ablation TIA (transient ischemic attack) PAST [...] agreeable to this care plan. 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 Allergies No Known Allergies All[facility] (Verified 12/17/23 13:28) [facility] Anxiety Depression Hypertension Family History [...] Jan Roman Signature: Date (if applicable) CC: [facility] CNOVon 01-16-2024 CNOV Office Visit ([facility] ) -- SLOAN HARVEY ([id number]) 1970 M [facility] Date Time Provider Department 01/16/24 3:00 PM PATRIC KWADWO [facility] During your visit today, we recorded the following information about you: Temperature Pulse Respiration Blood pressure 97.6 degrees 81/minute 18/minute 124/87 Weight 110 kg Patric MEREDITH Combs 01/16/2024 3:37 PM Signed This note was created using [employer]. Subjective Sloan Harvey is a 53 year [...] referral pending which he will follow-up with. Kawdwo Spivey APRN.INSTRUCTOR MODELING Neda Rush MA 01/16/2024 3:24 PM Signed Ambulatory Ear [...] Date Reviewed: 01/16/2024 Reviewed by: Kwadwo Spivey APRN.INSTRUCTOR MODELING - Fully Assessed Reason for Visit: Ear [...] Status:Closed by KWADWO SPIVEY on 01/16/24 Normal [facility] Absolute lymphocyte countOrd ered By: Lucretia Hunter on 12-17-2023 Lymphocytes Auto (Unsp spec) [#/Vol] 1.65 10*3/uL 0.83-4.51 [facility] Automated lymphocyte count a s percentage of total leukocytesOrdered By: Lucretia Hunter on 12-17-2023 Lymphocytes/100 WBC Auto (Unsp spec) 25.3 % 19-41 [facility] Basophil percentageOrdered B y: Lucretia Hunter on 12-17-2023 Basophils/100 WBC (Bld) 0.9 % 0-1 [facility] Bilirubin [Mass/Vol] 0.50 mg/dL 0.20-1.[address] [facility] Comment on above: For patients on eltr ombopag therapy, use of Dimension [place] TBIL is not recommended. Chloride [Moles/Vol] 108 mmol/L 98-[address] [facility] Eosinophils/100 WBC (Bld) 2.5 % 0-5 [facility] Glucose [Mass/Vol] 80 mg/dL 74-106 [facility] Hemoglobin (Bld) [Mass/Vol] 14.9 g/dL 13.0-16.5 [facility] Monocytes/100 WBC (Bld) 9.2 % 0-10 [facility] Neutrophils (Bld) [#/Vol] 4.0 10*3/uL 2.0-7.7 [facility] Neutrophils/100 WBC (Bld) 61.8 % 47-70 [facility] Potassium [Moles/Vol] 4.1 mmol/L 3.5-5.1 [facility] Protein [Mass/Vol] 7.5 g/dL 6.4-8.2 [facility] Sodium [Moles/Vol] 140 mmol/L 136-145 [facility] WBC (Bld) [#/Vol] 6.5 10*3/uL 4.4-11.0 [facility] Determination of erythrocyte mean corpuscular volume (MCV)Ordered By: Lucretia Hunter on 12-17-2023 MCV (RBC) [Entitic vol] 90.8 fL 80-94 [facility] Erythrocyte distribution wid th ratioOrdered By: Lucretia Hunter on 12-17-2023 Erythrocyte distribution width (RBC) [Ratio] 15.1 % 11.6-14.6 [facility] Erythrocyte distribution wid th standard deviationOrdered By: Lucretia Hunter on 12-17-2023 Erythrocyte distribution width (RBC) [Entitic vol] 49.9 fL 35.1-43.9 [facility] Hematocrit Auto (Bld) [Volum e fraction]Ordered By: Lucretia Hunter on 12-17-2023 Hematocrit (Bld) [Volume fraction] 44.5 % 40-54 [facility] Immature granulocytes/100 WB C Auto (Bld)Ordered By: Lucretia Hnuter on 12-17-2023 Immature granulocytes/100 WBC (Bld) 0.300 % 0.0-0.9 [facility] Comment on above: IG% - Immature Granu locytes (promyelocytes, myelocytes and metamyelocytes) > 1% indicates that a LEFT SHIFT is Present. Laboratory - Chemistry and C hemistry - challengeOrdered By: Lucretia Hunter on 12-17-2023 Albumin/Globulin [Mass ratio] 0.8 {ratio} 0.9-2.4 [facility] ALP [Catalytic activity/Vol] 121 U/L 45-117 [facility] ALT [Catalytic activity/Vol] 89 U/L 16-61 [facility] CO2 [Moles/Vol] 25.0 mmol/L 21.0-32.0 [facility] Globulin (S) [Mass/Vol] 4.1 g/dL 2.2-4.2 [facility] Urea nitrogen/Creatinine [Mass ratio] 13.8 mg/mg 10-20 [facility] - Drug toxicology Ordered By: Lucretia Hunter on 12-17-2023 Amphetamines Ql (U) Negative <1000 ng/mL [facility] Benzodiazepines Ql (U) Negative < 200 ng/mL [facility] Cannabinoids Screen Ql (U) Positive < 50 ng/mL [facility] Cocaine Ql (U) Negative < 300 ng/mL [facility] Opiates Ql (U) Negative < 300 ng/mL [facility] - Hematology and Cell countsOrdered By: Lucretia Hunter on 12-17-2023 MCH (RBC) [Entitic mass] 30.4 pg 27.0-32.0 [facility] MCHC (RBC) [Mass/Vol] 33.5 g/dL 32-36 [facility] Nucleated RBC/100 WBC (Bld) [Ratio] 0 % 0-5 [facility] Platelet mean volume (Bld) [Entitic vol] 9.0 fL 6.2-12.0 [facility] Platelets (Bld) [#/Vol] 241 10*3/uL 150-450 [facility] No Panel InformationOrdered By: Lucretia Hunter on 12-17-2023 MDMA (Ecstasy) Screen Negative < 500 ng/mL [facility] Urine Barbiturates Screen Negative < 200 ng/mL [facility] Urine Drug Screen Comment [facility] Comment on above: CONFIRMATORY TESTING FOR [...] Urine Methadone Screen Negative < 300 ng/mL [facility] Estimated Creatinine Clearance Calc 113.55 ml/min [facility] Estimated GFR (MDRD) Amer 107 mL/min >60 [facility] Comment on above: GFR Calc Estimated GFR (MDRD) Non-Af Amer 89 mL/min >60 [facility] Comment on above: Non- GFR Calc Ethyl Alcohol Level 148.0 mg/dL [facility] Comment on above: The serum:whole bloo d ethanol ratio is approximately 1.14and varies slightly with hematocrit. Medical Alcohol reference interval and critical value innon-tolerant individuals; 50 - 100 Impairment 100 Intoxication 100 - 250 Severe Poisoning 250 - 400 Deep/possible fatal coma RBC Auto (Bld) [#/Vol]Ordere d By: Lucretia Hunter on 12-17-2023 RBC (Bld) [#/Vol] 4.90 10*6/uL 4.6-6.2 [facility] Serum or plasma calcium che urement (mass/volume)Ordered By: Lucretia Hunter on 12-17-2023 Calcium [Mass/Vol] 8.7 mg/dL 8.5-10.1 [facility] Serum or plasma creatinine m easurement (mass/volume)Ordered By: Lucretia Hunter on 12-17-2023 Creatinine [Mass/Vol] 0.94 mg/dL 0.70-1.30 [facility] Comment on above: The validity of the calculated GFR & GFRAA in patients over 70 years has not been determined. Clinical correlation is essential. Serum or plasma urea nitroge n measurement (mass/volume)Ordered By: Lucretia Hunter on 12-17-2023 Urea nitrogen [Mass/Vol] 13 mg/dL 7-18 [facility] Thin prep Papanicolaou smear with manual screeningOrdered By: Lucretia Hunter on 12-17-2023 Thin prep Papanicolaou smear with manual screening 3.4 g/dL 3.2-5.0 [facility] Thin prep Papanicolaou smear with manual screening 60 U/L [facility] Thin prep Papanicolaou smear with manual screening 7 5-15 [facility] Urine phencyclidine (PCP) de tectionOrdered By: Lucretia Hunter on 12-17-2023 Phencyclidine Ql (U) Negative < 25 ng/mL [facility] CBC W Auto Differential pane l (Bld)on 10-01-2023 Basophils (Bld) [#/Vol] 0.14 10*3/uL High <0.11 [facility] Comment on above: Order Comment: Speci men Type: BLOOD SPECIMENOrdering Facility: [facility] Address: [address] [place] [address] Performed By: #### 5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 [address] [place] [address] Performed By: #### 2 4331-1, 38809-7 ####[facility]ORYCLIA [id number] [address] [place] HbA1c (Bld)on 05-16-2023 Average glucose Estimated from glycated hemoglobin (Bld) [Mass/Vol] 105 mg/dL Normal [facility] Comment on above: Order Comment: Speci men Type: BLOOD SPECIMEN Ordering Facility: [facility] Address: [address] [place] [address] Result Comment: eAG: (Estimated average glucose) is a calculated value from HgbA1c and is ict sales representative of the average blood glucose level in the last 2-3 month period. Performed By: #### 5 5454-3 #### [facility] CLIA [id number] [address] [facility] HbA1c (Bld) [Mass fraction] 5.3 % Normal 4.3-5.6 [facility] Comment on above: Order Comment: Astrid pérez Type: BLOOD SPECIMEN Ordering Facility: [facility] Address: [address] [place] [address] Result Comment: [place] Diabetes Association guidelines indicate that patients with HgbA1c in the range 5.7-6.4% are at increased risk for development of diabetes, and intervention by lifestyle modification may be beneficial. HgbA1c greater or equal to 6.5% is considered diagnostic of diabetes. Performed By: #### 5 5454-3 #### [facility] CLIA [id number] [address] [place] Lipid 1996 panelon 3 Cholesterol [Mass/Vol] 197 mg/dL Normal <200 [facility] Comment on above: Order Comment: Astrid pérez Type: BLOOD SPECIMENOrdering Facility: [facility] Address: [address] [place] [address] Result Comment: <200 mg/dL, Desirable 200-239 mg/dL, Borderline high >239 mg/dL, High Performed By: #### 2 4331-1, 18730-2 ####[facility]CLIA [id number] [address] [place] Cholesterol in HDL [Mass/Vol] 49 mg/dL Normal >39 [facility] Comment on above: Order Comment: Astrid pérez Type: BLOOD SPECIMENOrdering Facility: [facility] Address: [address] [place] [address] Result Comment: 40-5 9 mg/dL, Acceptable >59 mg/dL, High: Negative risk factor for coronary heart disease <40 mg/dL, Low: Positive risk factor for coronary heart disease Performed By: #### 2 4331-, 20194-6 ####[facility]ORYCLIA [id number] [address] [place] [facility] Cholesterol in LDL [Mass/Vol] 121 mg/dL High <100 [facility] Comment on above: Order Comment: Speci men Type: BLOOD SPECIMENOrdering Facility: [facility] Address: [address] [place] [address] Result Comment: <100 mg/dL, Optimal 100-129 mg/dL, Near optimal/above optimal 130-159 mg/dL, Borderline high 160-189 mg/dL, High >189 mg/dL, Very high Secondary prevention optimal LDL Cholesterol levels are recommended to be < 70 mg/dL Performed By: #### 2 433-, 21938-3 ####[facility]ORYCLIA [id number] [address] Cholesterol in LDL/Cholesterol in HDL [Mass ratio] 2.47 {ratio} Normal <2.54 [facility] Comment on above: Order Comment: Speci [facility] Type: BLOOD SPECIMENOrdering Facility: [facility] Address: [address] [place] [address] Result Comment: Refe rence: 1. National Cholesterol Education Program ATP III Guideline At-A-Glance Quick Desk Reference: National Heart, Lung, and Blood [place]. National Institutes of Health. 2001: NIH Publication No. 01-3305. 2. An International Atherosclerosis Society position paper: global recommendations for the management of dyslipidemia: executive summary, Atherosclerosis. 2014: 232(2):410-413. Performed By: #### 2 433-, ####[facility]ORYCLIA [id number] [address] OF [facility] Cholesterol in VLDL [Mass/Vol] 27 mg/dL Normal <30 [facility] Comment on above: Order Comment: Dianai men Type: BLOOD SPECIMENOrdering Facility: [facility] Address: [address] [address] Performed By: #### 2 [id number] ####[facility] LABORATORYCLIA [id number] [address] OF [place] Cholesterol non HDL [Mass/Vol] 148 mg/dL High <130 [facility] Comment on above: Order Comment: Speci men Type: BLOOD SPECIMENOrdering Facility: [facility] Address: [address] [place] [address] Result Comment: <130 mg/dL, Optimal 130-159 mg/dL, Near optimal/above optimal 160-189 mg/dL, Borderline high 190-219 mg/dL, High >219 mg/dL, Very high Secondary prevention optimal non HDL Cholesterol levels are recommended to be <100 mg/dL Performed By: #### 2 4331-1, 43992-8 ####[facility] LABORATORYCLIA [id number] [address] Cholesterol.total/Cho lesterol in HDL [Mass ratio] 4.02 {ratio} Normal <5.10 [facility] Comment on above: Order Comment: Speci men Type: BLOOD SPECIMENOrdering Facility: [facility] Address: [address] [place] [address] Performed By: #### 2 4331-1, 85124-9 ####[facility] LABORATORYCLIA [id number] [address] FASTING TIME 12 hrs Normal [facility] Comment on above: Order Comment: Speci men Type: BLOOD SPECIMENOrdering Facility: [facility] Address: [address] [place] [address] Performed By: #### 2 4331-1, 24061-0 ####[facility] LABORATORYCLIA [id number] [address] OF [place] Triglyceride [Mass/Vol] 134 mg/dL Normal <150 [facility] Comment on above: Order Comment: Speci men Type: BLOOD SPECIMENOrdering Facility: [facility] Address: [address] [address] Result Comment: <150 mg/dL, Normal 150-199 mg/dL, Borderline high 200-499 mg/dL, High >499 mg/dL, Very high Performed By: #### 2 4331-1, 91241-7 ####[facility] LABORATORYCLIA [id number] [address] Wander 02-21-2023 CNPN Telephone ([facility]) -- SLOAN HARVEY ([id number]) 1970 M Date Time Provider Department 02/21/23 DAE MARI During your visit today, we recorded the following information about you: Regina Figueroa MA 02/21/2023 2:09 PM Signed The referral placed for February 21, 2023 has been submitted via the [facility] Internal Referral Request form on the [facility] Appointment Portal. Confirmation # [id number] KATRIN Peerz MA 02/24/2023 12:01 PM Signed [id number] ref 02/21/23 09:05 SLOAN HARVEY 1970 PMOORE2 02/21/23 09:28 to Jc ALCANTAR 02/21/23 09:36 02/22/23 Patient scheduled 07/11/2023 [facility]Harish ([facility] Darrius Velasco Scheduled 02/23/23 08:55 Allergies As of Date: 02/21/2023 (Not on File) Date Reviewed: 02/16/2023 Reviewed by: Dae Mari APRN.INSTRUCTOR MODELING - Fully Assessed Reason for Visit: Consult [502] Cmt: ROSY #[id number] Prescriptions as of 02/24/2023 - DULoxetine (CYMBALTA) [...] Encounter Status:Closed by REGINA FIGUEROA on 02/21/23 Normal [facility] CNOVon 02-16-2023 CNOV Office Visit ([facility]) -- SLOAN HARVEY ([id number]) 1970 M Date Time Provider Department 02/16/23 3:40 PM DAE MARI AGSAM During your visit today, we recorded the following information about you: Pulse Respiration Blood pressure Weight 75/minute 18/minute 133/91 105.7 kg Height 1.778 m Dea Mari APRN.INSTRUCTOR MODELING 02/16/2023 4:31 PM Signed [facility] [address] [place] [address] Date of Evaluation: 02/16/2023 Patient Name: Sloan [...] ENT. - CONSULT TO ENT Dae Mari APRN.INSTRUCTOR MODELING Return in about 1 week (around 02/23/2023) [...] the base of the 5th metatarsal bone. MS/ges Workstation ID: [id number] Dictated by: ELISA BOWMAN on TueOct 09, 2021 4:06:36 PM EST Transcribed by: MYRANDA FERMIN on TueOct 09, 2021 4:09:40 PM EST Finalized by: ELISA BOWMAN on TueOct 09, 2021 4:59:05 PM EST Normal [facility] Comment on above: Order Comment: Injur [...] the base of the 5th metatarsal bone. MS/ges Workstation ID: [id number] Dictated by: ELISA BOWMAN on TueOct 09, 2021 4:06:17 PM EST Transcribed by: MYRANDA FERMIN on TueOct 09, 2021 4:10:17 PM EST Finalized by: ELISA BOWMAN on TueOct 09, 2021 4:59:00 PM EST Normal [facility] Comment on above: Order Comment: Injur y/Trauma or Illness?:Injury/Trauma How long have you had these symptoms (acute/chronic)?:Acute Reason for exam?:pain History of cancer?:no Surgeries, chemotherapy, or radiation?:no Type of Exam?:Initial Mechanism of injury?:fall Basic metabolic panel aka Ch em 8on 12-22-2020 Calcium [Mass/Vol] 9.7 mg/dL 8.4 - 10. 4 mg/dL [facility] Chloride [Moles/Vol] 104 mmol/L 96 - 10 9 mmol/L [facility] CO2 [Moles/Vol] 24 mmol/L 22 - 30 mmol/L [facility] Comprehensive metabolic 2000 panel 0.86 mg/dL 0.66 - 1.25 mg/dL [facility] Glucose [Mass/Vol] 100 mg/dL 65 - 100 mg/dL [facility] Potassium [Moles/Vol] 3.6 mmol/L 3.6 - 5.1 mmol/L [facility] Sodium [Moles/Vol] 139 mmol/L 135 - 147 mmol/L [facility] Urea nitrogen [Mass/Vol] 12 mg/dL 8 - 26 mg/dL [facility] CBC WITH DIFFERENTIALon 04-0 -2020 ABSOLUTE BASO 0.1 10 3/uL Normal 0.0-0.1 [facility] Comment on above: Performed By: #### 4 [id number] #### [facility] [place] [address] ABSOLUTE EOSIN 0.2 10 3/uL Normal 0.1-0.3 [facility] Comment on above: Performed By: #### 4 [id number] #### [facility] [place] [address] ABSOLUTE LYMPH 1.4 10 3/uL Normal 1.2-3.3 [facility] Comment on above: Performed By: #### 4 [id number] #### [place] [address] ABSOLUTE MONO 0.7 10 3/uL High 0.2-0.6 [facility] Comment on above: Performed By: #### 4 [id number] #### [place] [address] ABSOLUTE NEUT 7.2 10 3/uL High 2.4-6.6 [facility] Comment on above: Performed By: #### 4 [id number] #### [facility] [place] [address] Basophils/100 WBC (Bld) 0.5 % Normal [facility] Comment on above: Performed By: #### 4 [id number] #### [facility] [place] [address] Eosinophils/100 WBC (Bld) 1.7 % Normal [facility] Comment on above: Performed By: #### 4 [id number] #### [facility] [place] [address] Erythrocyte distribution width (RBC) [Ratio] 12.5 % Normal 11.5-14.5 [facility] Comment on above: Performed By: #### 4 [id number] #### [place] [address] Hematocrit (Bld) [Volume fraction] 48.3 % Normal 37.7-51.1 [facility] [employer] [facility] Comment on above: Performed By: #### 4 [id number] #### [place] [address] Hemoglobin (Bld) [Mass/Vol] 16.4 g/dL Normal 12.8-17.7 [facility] Comment on above: Performed By: #### 4 [id number] #### [place] [address] Lymphocytes/100 WBC (Bld) 14.4 % Normal [facility] [employer] [facility] Comment on above: Performed By: #### 4 [id number] #### [place] [address] MCH (RBC) [Entitic mass] 32.5 pg Normal 27.0-34.2 [facility] Comment on above: Performed By: #### 4 [id number] #### [place] [address] MCHC (RBC) [Mass/Vol] 34.0 g/dL Normal 31.4-36.2 [facility] Comment on above: Performed By: #### 4 [id number] #### [place] [address] MCV (RBC) [Entitic vol] 95.8 fL Normal 80.6-99.0 [facility] Comment on above: Performed By: #### 4 [id number] #### [place] [address] Monocytes/100 WBC (Bld) 7.0 % Normal [facility] [employer] [facility] Comment on above: Performed By: #### 4 [id number] #### [place] [address] Neutrophils/100 WBC (Bld) 76.4 % Normal [facility] Comment on above: Performed By: #### 4 [id number] #### [place] [address] PLATELET 248.0 x10 3/uL Normal 150.0-400.0 [facility] Comment on above: Performed By: #### 4 [id number] #### [place] [address] RBC 5.04 x10 6/uL Normal 3.70-5.70 [facility] Comment on above: Performed By: #### 4 [id number] #### [place] [address] WBC 9.5 x10 3/uL Normal 4.3-10.3 [facility] Comment on above: Performed By: #### 4 [id number] #### [place] [address] CBC with Differentialon 04-0 Absolute Becker 0.7 High [facility] [employer] (Inspect Manager) Basophils (Bld) [#/Vol] 0.1 10*3/uL [facility] Basophils/100 WBC (Bld) 0.5 % [facility] [employer] (Inspect Manager) Eosinophils (Bld) [#/Vol] 0.2 10*3/uL [facility] [employer] (Inspect Manager) Eosinophils/100 WBC (Bld) 1.7 % [facility] [employer] (Inspect Manager) Erythrocyte distribution width (RBC) [Ratio] 12.5 % 11.5 - 14.5 % [facility] [employer] (Inspect Manager) Hematocrit (Bld) [Volume fraction] 48.3 % 37.7 - 51.1 % [facility] Hemoglobin (Bld) [Mass/Vol] 16.4 g/dL 12.8 - 17.7 g/dL [facility] [employer] (Inspect Manager) Interpretation and review of laboratory results Abnormal [facility] Lymphocytes (Bld) [#/Vol] 1.4 10*3/uL [facility] [employer] (Inspect Manager) Lymphocytes/100 WBC (Bld) 14.4 % [facility] [employer] (Inspect Manager) MCH (RBC) [Entitic mass] 32.5 pg 27 - 34.2 pg [facility] MCHC (RBC) [Mass/Vol] 34.0 g/dL 31.4 - 36.2 g/dl [facility] MCV (RBC) [Entitic vol] 95.8 fL 80.6 - 99 fL [facility] Monocytes/100 WBC (Bld) 7.0 % [facility] Neutrophils (Bld) [#/Vol] 7.2 10*3/uL High [facility] Neutrophils/100 WBC (Bld) 76.4 % [facility] Platelets (Bld) [#/Vol] 248.0 10*3/uL [facility] RBC (Bld) [#/Vol] 5.04 10*6/uL [facility] WBC LM Ql (Sput) 9.5 [facility] CHEM 8on 12-22-2020 Calcium [Mass/Vol] 9.7 mg/dL Normal 8.4-10.4 [facility] Comment on above: Performed By: #### 4 [id number] #### [facility] [place] [address] Glucose [Mass/Vol] 100 mg/dL Normal 65-100 [facility] [employer] [facility] Comment on above: Performed By: #### 4 [id number] #### [facility] [place] [address] Urea nitrogen [Mass/Vol] 12 mg/dL Normal 8-26 [facility] Comment on above: Performed By: #### 4 [id number] #### [facility] [place] [address] CO2 [Moles/Vol] 24 mmol/L Normal 22-30 [facility] Comment on above: Performed By: #### 4 [id number] #### [facility] [employer] [address] [address] Creatinine [Mass/Vol] 0.86 mg/dL Normal 0.66-1.25 [facility] Comment on above: Performed By: #### 4 [id number] #### [facility] [employer] [address] [address] Chloride [Moles/Vol] 104 mmol/L Normal 96-109 [facility] Comment on above: Performed By: #### 4 [id number] #### [place] [address] Potassium [Moles/Vol] 3.6 mmol/L Normal 3.6-5.1 [facility] Comment on above: Performed By: #### 4 [id number] #### [facility] [place] [address] Sodium [Moles/Vol] 139 mmol/L Normal 135-147 [facility] Comment on above: Performed By: #### 4 [id number] #### [place] [address] COVID MOLECULARon 12-22-2020 SARS-CoV-2 (COVID-19) RNA SHIRLEY+probe Ql (Unsp spec) Negative Normal NEGATIVE [facility] Comment on above: Result Comment: Nega tive [...] or revoked sooner. Performed By: #### 3 [id number] #### [place] [address] EKG 12-LEADon 12-22-2020 Stationary ECG Study Test Date: 2020-12-22 Pat Name: SLOAN HARVEY Department: Room: Gender: Male [employer] Agent: KRISSY : 1970 Requested By: Order Number: Vimal MD: Duy Alejandro Measurements Intervals [place] Rate: 84 P: 52 DE: 115 QRS: 37 QRSD: 88 T: 39 QT: 366 QTc: 434 Interpretive Statements SINUS RHYTHM WITH SHORT DE INTERVAL Electronically Signed On 12-22-2020 14:58:52 EDT by Duy Alejandro [facility] [employer] [facility] ETHANOL-SERUMon 12-22-2020 ETHANOL-SERUM <10 Normal NOT DETECTED [facility] Comment on above: Performed By: #### 4 [id number] #### [place] [address] Ethanolon 12-22-2020 Ethanol Ql (U) <10 NOT DETECTED mg/dL [facility] GFRon 12-22-2020 GFR >60 Normal [facility] Comment on above: Result Comment: To e [...] Suppl.2013;3:1-150 Performed By: #### G FR1 #### [place] [address] GLOMERULAR FILTRATION RATEon 12-22-2020 GFR/1.73 sq M.predicted MDRD (S/P/Bld) [Vol rate/Area] mL/min/{1.73_m2} [facility] Comment on above: To estimate the GFR [...] for CKD Kidney Int Suppl.2013;3:1-150 Otheron 12-22-2020 [facility] SARS-COV-2 Rapid Molecular T eston 12-22-2020 SARS-COV-2 Rapid Molecular Test Negative NEGATIVE [facility] Comment on above: Negative results jim uld [...] the authorization is terminated or revoked sooner. [facility] Toxicology screen, urineon 0 12-22-2020 Amphetamines Screen method >1000 ng/mL Ql (U) NOT DETECTED CUTOFF <1000 ng/mL [facility] Barbiturates Screen method >200 ng/mL Ql (U) NOT DETECTED CUTOFF <200 ng/mL [facility] Benzodiazepines Ql (U) NOT DETECTED CUTOFF <200 ng/mL [facility] Benzoylecgonine Screen (U) [Mass/Vol] NOT DETECTED CUTOFF <300 ng/mL [facility] Cannabinoids Screen method >50 ng/mL Ql (U) Positive Abnormal CUTOFF <50 ng/mL [facility] Fentanyl NOT DETECTED CUTOFF 1.0 ng/mL [facility] Interpretation and review of laboratory results Abnormal [facility] Opiates Screen (U) [Mass/Vol] NOT DETECTED CUTOFF <300 ng/mL [facility] Phencyclidine (U) [Mass/Vol] NOT DETECTED CUTOFF <25 ng/mL [facility] Tox Message see below [facility] Comment on above: Notes: 1. SCREENING RESULTS SHOULD BE CONSIDERED PRESUMPTIVE UNLESS THE PRESENCE OF THE ANALYTE HAS BEEN CONFIRMED BY A REFERENCE LAB. 2. ALL DRUG GROUPS ARE ANALYZED ON URINE. [facility] UR DRUG SCREEN-7 PANELon Opiates Ql (U) Not detected Normal CUTOFF <300 [facility] Comment on above: Performed By: #### 4 [id number] #### [facility] [place] [phone] PCP Not detected Normal CUTOFF <25 [facility] Comment on above: Performed By: #### 4 [id number] #### [facility] [employer] [place] [phone] COCAINE/BE Not detected Normal CUTOFF <300 [facility] [employer] [facility] Comment on above: Performed By: #### 4 [id number] #### [facility] [place] [id number] BENZODIAZEPINE Not detected Normal CUTOFF <200 [facility] Comment on above: Performed By: #### 4 [id number] #### [facility] [place] [phone] MARIJUANA/THC Positive Abnormal CUTOFF <50 [facility] Comment on above: Performed By: #### 4 [id number] #### [place] [address] BARBITURATE Not detected Normal CUTOFF <200 [facility] Comment on above: Performed By: #### 4 [id number] #### [place] [address] AMPHETAMINES/METH Not detected Normal CUTOFF <1000 [facility] Comment on above: Performed By: #### 4 [id number] #### [place] [address] FENTANYL Not detected Normal CUTOFF 1.0 [facility] Comment on above: Performed By: #### 4 [id number] #### [place] [address] TOX MESSAGE see below Normal [facility] Comment on above: Result Comment: Note s: 1. SCREENING RESULTS SHOULD BE CONSIDERED PRESUMPTIVE UNLESS THE PRESENCE OF THE ANALYTE HAS BEEN CONFIRMED BY A REFERENCE LAB. 2. ALL DRUG GROUPS ARE ANALYZED ON URINE. Performed By: #### 4 [id number] #### [place] [phone] URINALYSIS W/REFLEXon 2020 Appearance (U) Cloudy Normal [facility] Comment on above: Performed By: #### 4 [id number] #### [address] [place] [phone] Bacteria identified Cx Nom (U) NOT INDICATED Normal [facility] Comment on above: Performed By: #### 4 [id number] #### [address] [place] [address] Bilirubin Ql (U) Negative Normal Negative [facility] Comment on above: Performed By: #### 4 [id number] #### [place] [address] Color (U) Candice Normal [facility] Comment on above: Performed By: #### 4 [id number] #### [place] [address] Glucose Ql (U) Negative Normal Negative [facility] Comment on above: Performed By: #### 4 [id number] #### [place] [address] HYALINE CAST 2 /LPF Normal [facility] Comment on above: Performed By: #### 4 [id number] #### [place] [address] Ketones Ql (U) 20 mg/dL Abnormal Negative [facility] Comment on above: Performed By: #### 4 [id number] #### [facility] [place] [address] LEUKOESTERASE Negative Normal Negative [facility] Comment on above: Performed By: #### 4 [id number] #### [facility] [place] [address] MUCOUS-URINE Many Normal [facility] Comment on above: Performed By: #### 4 [id number] #### [facility] [place] [address] Nitrite Ql (U) Negative Normal Negative [facility] Comment on above: Performed By: #### 4 [id number] #### [facility] [employer] [place] [phone] NON-SQUAMOUS EPI 2 /LPF Normal [facility] Comment on above: Performed By: #### 4 [id number] #### [facility] [employer] [place] [id number] OCCULT BLOOD Small Abnormal Negative [facility] Comment on above: Performed By: #### 4 [id number] #### [place] [address] pH (U) 5.0 [pH] Normal [facility] Comment on above: Performed By: #### 4 [id number] #### [place] [address] Protein Ql (U) 100 mg/dL Abnormal Negative [facility] Comment on above: Performed By: #### 4 [id number] #### [place] [address] RBC LM.HPF (Urine sed) [#/Area] 7 /[HPF] High 0-5 [facility] Comment on above: Performed By: #### 4 [id number] #### [place] [address] Specific gravity (U) [Rel density] 1.027 Normal 1.003-1.029 [facility] Comment on above: Performed By: #### 4 [id number] #### [place] [address] Urobilinogen (U) [Mass/Vol] 2.0 mg/dL Normal <2.0 [facility] Comment on above: Performed By: #### 4 [id number] #### [place] [address] WBC LM.HPF (Urine sed) [#/Area] 3 /[HPF] Normal 0-5 [facility] Comment on above: Performed By: #### 4 [id number] #### [place] [address] URINE SOURCE Voided Normal [facility] Comment on above: Performed By: #### 4 [id number] #### [place] [phone] Urinalysis with reflex cultu reon 12-22-2020 Appearance (U) Cloudy [facility] Bacteria identified Aer cx Nom (Unsp spec) NOT INDICATED [facility] Bilirubin Ql (U) Negative Negative [facility] Color (CSF) Candice [facility] Glucose Ql (U) Negative Negative mg/dL [facility] Hemoglobin Ql (U) 7 High [facility] Hyaline casts (Urine sed) [#/Area] 2 /[LPF] /LPF [facility] Interpretation and review of laboratory results Abnormal [facility] Ketones Ql (U) 20 mg/dL Abnormal Negative [facility] Leukoesterase Negative Negative [facility] Mucous-Urine Many /LPF [facility] Nitrite Ql (U) Negative Negative [facility] Non-Squamous EPI 2 /LPF [facility] Occult Bld Small Abnormal Negative [facility] pH (U) 5.0 [pH] [facility] Protein (U) [Mass/Vol] 100 mg/dL Abnormal Negative [facility] Specific gravity (U) [Rel density] 1.027 [facility] Urine Source Voided [facility] Urobilinogen Qn (U) 2.0 mg/dL <2.[address] [facility] WBC (U) [#/Vol] 3 /uL [facility] Basic metabolic panelon 12- Calcium [Mass/Vol] 9.4 mg/dL 8.4 - 10. 4 mg/dL [facility] Chloride [Moles/Vol] 105 mmol/L 96 - 10 9 mmol/L [facility] CO2 [Moles/Vol] 27 mmol/L 22 - 30 mmol/L [facility] Comprehensive metabolic 2000 panel 0.88 mg/dL 0.66 - 1.25 mg/dL [facility] Glucose [Mass/Vol] 82 mg/dL 65 - 100 mg/dL [facility] Potassium [Moles/Vol] 3.9 mmol/L 3.6 - 5.1 mmol/L [facility] Sodium [Moles/Vol] 140 mmol/L 135 - 147 mmol/L [facility] Urea nitrogen [Mass/Vol] 12 mg/dL 8 - 26 mg/dL [facility] CBC without differentialon 1 10-28-2018 Erythrocyte distribution width (RBC) [Ratio] 12.8 % 11.5 - 14.5 % [facility] Hematocrit (Bld) [Volume fraction] 44.7 % 37.7 - 51.1 % [facility] Hemoglobin (Bld) [Mass/Vol] 14.7 g/dL 12.8 - 17.7 g/dL [facility] MCH (RBC) [Entitic mass] 31.5 pg 27 - 34.2 pg [facility] MCHC (RBC) [Mass/Vol] 32.9 g/dL 31.4 - 36.2 g/dl [facility] MCV (RBC) [Entitic vol] 95.9 fL 80.6 - 99 fL [facility] Platelets (Bld) [#/Vol] 232.0 10*3/uL [facility] RBC (Bld) [#/Vol] 4.66 10*6/uL [facility] WBC LM Ql (Sput) 10.0 [facility] GLOMERULAR FILTRATION RATEon 08-27-2019 GFR/1.73 sq M.predicted MDRD (S/P/Bld) [Vol rate/Area] mL/min/{1.73_m2} [facility] Comment on above: To estimate the GFR [...] and Rh group Nom (Bld) O POS [facility] Blood group antibody screen.cells I+II+III Ql Negative [facility] HEPATITIS VIRAL PANELon 07-21 HAV IgM Qn (S) Nonreactive Nonreactive [facility] HCV Ab Qn (S) Nonreactive Nonreactive [facility] Hep B Core-M AB Nonreactive Nonreactive [facility] Hep B Surf AG Nonreactive Nonreactive [facility] Hepatic function panelon Albumin [Mass/Vol] 4.3 g/dL 3.5 - 5 g/dL [facility] Alk Phos 97 U/L 24 - 126 U/L [facility] ALT [Catalytic activity/Vol] 22 U/L 4 - 50 U/L [facility] AST [Catalytic activity/Vol] 32 U/L 3 - 55 U/L [facility] Bilirubin [Mass/Vol] 0.6 mg/dL 0.2 - 1 .6 mg/dL [facility] Bilirubin.conjugated [Mass/Vol] 0.1 mg/dL 0 - 0.5 mg/dL [facility] Protein [Mass/Vol] 7.7 g/dL 6.3 - 8.2 g/dL [facility] Basic metabolic panel aka Ch em 8on 07-24-2019 Calcium [Mass/Vol] 9.8 mg/dL 8.4 - 10. 4 mg/dL [facility] Chloride [Moles/Vol] 108 mmol/L 96 - 10 9 mmol/L [facility] [facility] CO2 [Moles/Vol] 28 mmol/L 22 - 30 mmol/L [facility] Comprehensive metabolic 2000 panel 0.93 mg/dL 0.66 - 1.25 mg/dL [facility] Glucose [Mass/Vol] 101 mg/dL High 65 - 100 mg/dL [facility] Interpretation and review of laboratory results Abnormal [facility] Potassium [Moles/Vol] 4.3 mmol/L 3.6 - 5.1 mmol/L [facility] Sodium [Moles/Vol] 143 mmol/L 135 - 147 mmol/L [facility] Urea nitrogen [Mass/Vol] 10 mg/dL 8 - 26 mg/dL [facility] CBC with Differentialon Absolute Becker 0.6 [facility] Basophils (Bld) [#/Vol] 0.1 10*3/uL [facility] Basophils/100 WBC (Bld) 0.7 % [facility] Eosinophils (Bld) [#/Vol] 0.2 10*3/uL [facility] Eosinophils/100 WBC (Bld) 2.2 % [facility] Erythrocyte distribution width (RBC) [Ratio] 13.0 % 11.5 - 14.5 % [facility] Hematocrit (Bld) [Volume fraction] 47.4 % 37.7 - 51.1 % [facility] Hemoglobin (Bld) [Mass/Vol] 15.5 g/dL 12.8 - 17.7 g/dL [facility] Lymphocytes (Bld) [#/Vol] 1.9 10*3/uL [facility] Lymphocytes/100 WBC (Bld) 20.6 % [facility] MCH (RBC) [Entitic mass] 32.3 pg 27 - 34.2 pg [facility] MCHC (RBC) [Mass/Vol] 32.7 g/dL 31.4 - 36.2 g/dl [facility] MCV (RBC) [Entitic vol] 98.8 fL 80.6 - 99 fL [facility] [employer] [facility] Monocytes/100 WBC (Bld) 6.5 % [facility] Neutrophils (Bld) [#/Vol] 6.4 10*3/uL [facility] Neutrophils/100 WBC (Bld) 70.0 % [facility] Platelets (Bld) [#/Vol] 208.0 10*3/uL [facility] RBC (Bld) [#/Vol] 4.80 10*6/uL 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 : 1970 Requested By: Order Number: Reading MD: Olayinka Zhou Measurements Intervals [place] Rate: 92 P: 28 DE: 144 QRS: 8 QRSD: 96 T: 20 QT: 339 QTc: 388 Interpretive Statements SINUS RHYTHM WITH FREQUENT SUPRAVENTRICULAR PREMATURE COMPLEXES Electronically Signed On 07-24-2019 17:52:55 EST by Olayinka Zhou [facility] GLOMERULAR FILTRATION RATEon 07-24-2019 GFR/1.73 sq M.predicted MDRD (S/P/Bld) [Vol rate/Area] mL/min/{1.73_m2} [facility] Comment on above: To estimate the GFR [...] 2.2 mg/dL 1.6 - 2 .3 mg/dL [facility] Phosphoruson 07-24-2019 Phosphate [Mass/Vol] 3.9 mg/dL 2.5 - 4 .5 mg/dL [facility] Troponin Ion 07-24-2019 Troponin I.cardiac [Mass/Vol] ng/mL 0 - 0.033 ng/mL [facility] Comment on above: NEGATIVE; No detectable troponin-I. C-reactive protein (Inflamma tory)on 07-05-2019 CRP [Mass/Vol] 12.8 mg/L High 0 - 9.9 mg/L [facility] CBC with Differentialon 06-19 Absolute Becker 0.6 [facility] Basophils (Bld) [#/Vol] 0.1 10*3/uL [facility] Basophils/100 WBC (Bld) 0.7 % [facility] Eosinophils (Bld) [#/Vol] 0.2 10*3/uL [facility] Eosinophils/100 WBC (Bld) 2.5 % [facility] Erythrocyte distribution width (RBC) [Ratio] 12.7 % 11.5 - 14.5 % [facility] Hematocrit (Bld) [Volume fraction] 44.9 % 37.7 - 51.1 % [facility] Hemoglobin (Bld) [Mass/Vol] 15.1 g/dL 12.8 - 17.7 g/dL [facility] Lymphocytes (Bld) [#/Vol] 1.5 10*3/uL [facility] Lymphocytes/100 WBC (Bld) 20.6 % [facility] MCH (RBC) [Entitic mass] 33.0 pg 27 - 34.2 pg [facility] MCHC (RBC) [Mass/Vol] 33.6 g/dL 31.4 - 36.2 g/dl [facility] MCV (RBC) [Entitic vol] 98.2 fL 80.6 - 99 fL [facility] Monocytes/100 WBC (Bld) 8.3 % [facility] Neutrophils (Bld) [#/Vol] 5.1 10*3/uL [facility] Neutrophils/100 WBC (Bld) 67.9 % [facility] Platelets (Bld) [#/Vol] 222.0 10*3/uL [facility] RBC (Bld) [#/Vol] 4.57 10*6/uL [facility] WBC LM Ql (Sput) 7.5 [facility] Comprehensive metabolic pane l aka Metaboon 07-05-2019 Albumin [Mass/Vol] 4.4 g/dL 3.5 - 5 g/dL [facility] Alk Phos 107 U/L 24 - 126 U/L [facility] ALT [Catalytic activity/Vol] 97 U/L High 4 - 50 U/L [facility] AST [Catalytic activity/Vol] 63 U/L High 3 - 55 U/L [facility] Bilirubin [Mass/Vol] 1.0 mg/dL 0.2 - 1 .6 mg/dL [facility] Calcium [Mass/Vol] 9.9 mg/dL 8.4 - 10. 4 mg/dL [facility] Chloride [Moles/Vol] 106 mmol/L 96 - 10 9 mmol/L [facility] CO2 [Moles/Vol] 26 mmol/L 22 - 30 mmol/L [facility] Comprehensive metabolic 2000 panel 0.69 mg/dL 0.66 - 1.25 mg/dL [facility] Glucose [Mass/Vol] 80 mg/dL 65 - 100 mg/dL [facility] Potassium [Moles/Vol] 4.3 mmol/L 3.6 - 5.1 mmol/L [facility] Protein [Mass/Vol] 8.1 g/dL 6.3 - 8.2 g/dL [facility] Sodium [Moles/Vol] 139 mmol/L 135 - 147 mmol/L [facility] Urea nitrogen [Mass/Vol] 7 mg/dL Low 8 - 26 mg/dL [facility] EKG 12-LEADon 07-05-2019 Stationary ECG Study Test Date: 2019-07-05 Pat Name: SLOAN HARVEY Department: Room: Gender: Male [employer] Agent: JOSE ALEJANDROBRANDON : 1970 Requested By: Order Number: Vimal MD: Benito Au Measurements Intervals [place] Rate: 58 P: 34 DE: 140 QRS: 33 QRSD: 87 T: 30 QT: 410 QTc: 407 Interpretive Statements SINUS BRADYCARDIA Electronically Signed On 07-05-2019 16:36:46 EDT by Benito Au [facility] Folateon 07-05-2019 Folate [Mass/Vol] 11.3 ng/mL [facility] Comment on above: Folate Reference Ran ge: >2.8 ng/mL . GLOMERULAR FILTRATION RATEon 07-05-2019 GFR/1.73 sq M.predicted MDRD (S/P/Bld) [Vol rate/Area] mL/min/{1.73_m2} [facility] Comment on above: To estimate the GFR [...] 104 U/L High 15 - 73 U/L [facility] Hemoglobin A1con 07-05-2019 HbA1c (Bld) [Mass fraction] 5.5 % 0 - 6 % [facility] [employer] [facility] Comment on above: Reference Interval f or %A1c %A1c (NGSP) Interpretation <6.0% Non-Diabetic Range >6.5% Action Suggested . Lipid panelon 07-05-2019 Cholesterol [Mass/Vol] 193 mg/dL 0 - 200 mg/dL [facility] Comment on above: CHOLESTEROL REFERENC E RANGE Desirable <200 mg/dL Borderline 200-239 mg/dL High >240 mg/dL . Cholesterol in HDL [Mass/Vol] 31.9 mg/dL Low 40 - 59.9 mg/dL [facility] Comment on above: Interpretive data fo r HDL Cholesterol states: HDL <40 mg/dL is low and constitutes a coronary disease risk factor. HDL >60 mg/dL is a negative risk factor for coronary heart disease. . Cholesterol in LDL [Mass/Vol] 137 mg/dL High 0 - 100 mg/dL [facility] Comment on above: LDL REFERENCE RANGE Optimal <100 mg/dl Near Optimal 100-129 mg/dL Borderline High 130-159 mg/dL High 160-189 mg/dL Very High >=190 mg/dL . Cholesterol in VLDL [Mass/Vol] 24 mg/dL <42 [facility] Triglyceride [Mass/Vol] 120 mg/dL 0 - 150 mg/dL [facility] Comment on above: TRIGLYCERIDE REFEREN CE RANGE Normal <150 mg/dL Borderline High 150-199 mg/dL High 200-499 mg/dL Very High >=500 mg/dL . Magnesiumon 07-05-2019 Magnesium [Mass/Vol] 2.2 mg/dL 1.6 - 2 .3 mg/dL [facility] Otheron 07-05-2019 Interpretation and review of laboratory results Abnormal [facility] Interpretation and review of laboratory results Abnormal [facility] TSHon 07-05-2019 TSH Qn 1.970 m[IU]/L [facility] Vitamin B12on 07-05-2019 Cobalamin (Vitamin B12) [Mass/Vol] 420 pg/mL 239 - 931 pg/mL [facility] Vitamin D 25 hydroxyon 07-05 25-Hydroxyvitamin D2+25-Hydroxyvitamin D3 [Mass/Vol] 32.4 ng/mL [facility] Comment on above: Reference Range: Deficiency: <20 ng/mL Insufficiency: 21-29 ng/mL Optimal Level: >=30 ng/mL Possible Toxicity: >80 ng/mL - 80 ng/mL is the lowest reported level associated with toxicity in patients without primary hyperthyroidism who have normal renal function. Ethanolon 06-20-2019 Ethanol Ql (U) <10 NOT DETECTED mg/dL [facility] Toxicology screen, urineon 1 Amphetamines Screen method >1000 ng/mL Ql (U) NOT DETECTED CUTOFF <1000 ng/mL [facility] Barbiturates Screen method >200 ng/mL Ql (U) NOT DETECTED CUTOFF <200 ng/mL [facility] Benzodiazepines Ql (U) NOT DETECTED CUTOFF <200 ng/mL [facility] Benzoylecgonine Screen (U) [Mass/Vol] NOT DETECTED CUTOFF <300 ng/mL [facility] Cannabinoids Screen method >50 ng/mL Ql (U) Positive Abnormal CUTOFF <50 ng/mL [facility] Interpretation and review of laboratory results Abnormal [facility] Opiates Screen (U) [Mass/Vol] NOT DETECTED CUTOFF <300 ng/mL [facility] Phencyclidine (U) [Mass/Vol] NOT DETECTED CUTOFF <25 ng/mL [facility] Tox Message see below [facility] Comment on above: Notes: 1. SCREENING RESULTS [...] blowout fracture with herniation of orbital fat.Workstation ID:[id number] 14 days ago headache started 15 days ago has not improved since tia Normal [facility] 06-11-2017 Alanine aminotransferase (ALT) 79 U/L Abnormal [facility] Comment on above: Performed By: #### L AB15, LAB62, UNC563, LPF624 ####[facility] CLIA [id number] [place] [id number] [place]#### LAB46, LAB18 ####[facility] CLIA [id number] [address] [id number] RUSTIND [facility], [place] [phone] Cinda 06-11-2017 Aspartate aminotransferase (AST) 47 U/L Abnormal 15-37 [facility] Comment on above: Performed By: #### L AB15, LAB62, IQX390, KJA604 ####[facility] [id number] [place] [address] [place]#### LAB46, LAB18 ####[facility] [id number] [place] [address] [facility], [phone] BASIC METABOLIC PANELon 05-21 Anion gap 12 mmol/L Normal 7-16 [facility] Comment on above: Performed By: #### L AB15, LAB62, XNV599, YRX618 ####[facility] [id number] [place] [address] [place]#### LAB46, LAB18 ####[facility] [id number] [place] [address] [facility], [phone] BUN (urea nitrogen) 20 mg/dL Abnormal 7-[address] [facility] Comment on above: Performed By: #### L AB15, LAB62, OAK410, VKK565 ####[facility] [id number] [place] [address] [place]#### LAB46, LAB18 ####[facility] CLIA [id number] [place] [address] [facility], [place] [phone] Calcium 9.1 mg/dL Normal 8.5-10.1 [facility] Comment on above: Performed By: #### L AB15, LAB62, QNT202, FJH366 ####[facility] CLIA [id number] [place] [address] [place]#### LAB46, LAB18 ####[facility] [id number] [place] [address] RUSTINDU [facility], [place] [address] Chloride 110 mmol/L Abnormal 98-107 [facility] Comment on above: Performed By: #### L AB15, LAB62, MSR450, SEE964 ####[facility] [id number] [place] [address], [facility]31 [place]#### LAB46, LAB18 ####[facility] [id number] [address] [address], [facility]31 USAINDU [facility], [place] [address] CO2 20 mmol/L Abnormal 21-32 [facility] Comment on above: Performed By: #### L AB15, LAB62, ZIQ582, RJH856 ####[facility] [id number] [place] [address], [facility]31 [place]#### LAB46, LAB18 ####[facility] [id number] [place] [address], [facility]31 USAINDU [facility], [address] Creatinine 1.1 mg/dL Normal 0.60-1.3 [facility] Comment on above: Performed By: #### L AB15, LAB62, AXZ243, EQJ949 ####[facility] [id number] [place] [address], [facility]31 [place]#### LAB46, LAB18 ####[facility] AND [facility] [id number] [place] [address] [place] [facility], [phone] eGFR (black) mL/min/{1.73_m2} Normal >60 [facility] Comment on above: Result Comment: GFR is estimated using creatinine, age, gender, and race. Patient's values should be interpreted as a trend. For additional information: [email or web address] Performed By: #### L AB15, LAB62, IIC872, SQJ102 ####[facility] CLIA [id number] [place] [address] [place]#### LAB46, LAB18 ####[facility] [id number] [place] [address] [place] [facility], [phone] eGFR (non-black) mL/min/{1.73_m2} Normal >60 [facility] Comment on above: Result Comment: GFR is estimated using creatinine, age, gender, and race. Patient's values should be interpreted as a trend. For additional information: [email or web address] Performed By: #### L AB15, LAB62, QNC624, IQI241 ####[facility] [id number] [place] [address] [place]#### LAB46, LAB18 ####[facility] [id number] [place] [address], [facility], [place] [phone] Glucose mass conc 86 mg/dL Normal 74-106 [facility] Comment on above: Performed By: #### L AB15, LAB62, CYS583, FPX970 ####[facility] [id number] [place] [address] [place]#### LAB46, LAB18 ####[facility] [id number] [place] [address] [place] [facility], [phone] Potassium molar conc 3.7 mmol/L Normal 3.5-5.1 [facility] Comment on above: Performed By: #### L AB15, LAB62, HTV867, IDH757 ####[facility] [id number] [place] [address] [place]#### LAB46, LAB18 ####SHAI AND [place] [id number] [place] [address] [place] [facility] AND [place] [id number], [place] [phone] Sodium 142 mmol/L Normal 136-145 [facility] Comment on above: Performed By: #### L AB15, LAB62, WDD821, YGC611 ####[facility] [id number] [place] [address] [place]#### LAB46, LAB18 ####[facility] [id number] [place] [address] [facility] [place] [id number], [phone] CKon 06-11-2017 CREATINE KINASE TOTAL 179 U/L Normal 39-[address] [facility] Comment on above: Performed By: #### L AB15, LAB62, APX393, IFJ702 ####[facility] [id number] [place] [address] [place]#### LAB46, LAB18 ####[facility] [id number] [place] [address] [facility] [place], [place] [phone] CT-ANGIO HEADANDNECK W AND/O R WO CON [...] by: Dinesh Solis MD, 06/11/2017 6:38 PM [facility] CT-HYPERACUTE HEAD W/O CON S TROKEon 06-11-2017 CT-HYPERACUTE HEAD W/O CON STROKE CT-HYPERACUTE [...] by: Connor Flores DO, 06/11/2017 2:25 PM [facility] Consultson 06-11-2017 Consults Encounter Department : [facility] EMERGENCY DEPARTMENTConsults by Sandie Flores DO at 06/11/2017 3:32 PMAuthor: Chaka Osoriorvice: NeurologyAuthor Type: PhysicianFiled: 06/11/2017 3:52 PMDate of Service: 06/11/2017 3:32 PMStatus: AddendumEditor: Sandie Flores DO (Physician)Related Notes:Original Note by Sandie Flores DO (Physician) filed at 06/11/2017 3:48 PMNeurological Services Consult NoteBETHOMASVILLE REGIONAL MEDICAL CENTERPatient Name:Sloan Gonzalezpedro : 1970Subjective:CC:47 y.o. -handed [facility] Called back and spoke with the ER about the case twice. Reviewed therecords from [facility] everywhere no matching patients in [facility] or [facility].He is not on any aspirin or Plavix. [...] to update the rena.Patient was seen remotely. [place] during the examination patient's friend Collin came [...] or seizurePast Medical History:DiagnosisDate -Back pain, chronic -[id number] -SVT (supraventricular tachycardia)hx of being offered ablaton [...] (06/11 1517)Resp: 14 (06/11 1517)SpO2: 94 % (09/23 1412)FiO2 (%): --O2 Flow Rate (L/min): --Cardiac (WDL): Within Defined Limits (06/11 1438)Cardiac Rhythm: --Gen: AANDO x 4, NAD, cooperativePsych: [...] Tremors--none Rapidly alternating movements: no dysdiadochokinesia b/l Xdsj-zk-Xikb: no dysmetria b/l Xcdqwu-cl-Nnmi: no dysmetria b/lGait and stance: Gait: deferredLABS:Recent [...] us.Sandie Flores DO, 06/11/2017 3:32 PM Normal [facility] DRUGS OF ABUSE URINEon 06-11 AMPHETAMINE METAB Negative Normal Negative [facility] Comment on above: Result Comment: Nega tive Performed By: #### L [id number] ####[facility] [id number] [place] [id number] [address] BARBITURATES Negative Normal Negative [facility] Comment on above: Result Comment: Nega tive Performed By: #### L [id number] ####[facility] [id number] [facility]BE[address] [phone] CANNABINOID METAB Negative Normal Negative [facility] Comment on above: Result Comment: Nega tive Performed By: #### L [id number] ####[facility] [id number] [place] [address], [address] [place] [id number] [address], [place] [address] DRUGS OF ABUSE URINE Normal [facility] Comment on above: Result Comment: Caryn l includes: Amphetamines, Barbiturates, Benzodiazepines, Cocaine, Opiates, THCDrug Screen Cut-off values:Amphetamines 300 ng/mlBenzodiazepines 200 ng/mlBarbiturates 200 ng/mlCocaine metabolite 300 ng/mlCannabinoids 50 ng/mlOpiates 300 ng/ml* Results are unconfirmed screening results and should only be used for medical purposes. Performed By: #### L [id number] ####[facility] [id number] [place] [address], [address] [place] [id number] [address], [place] [address] OPIATE METAB Negative Normal Negative [facility] Comment on above: Result Comment: Nega tive Performed By: #### L [id number] ####[facility] [id number] [place] [address], [address] AND [facility], [place] [phone] Urine, benzodiazepines presence Negative Normal Negative [facility] Comment on above: Result Comment: Nega tive Performed By: #### L [id number] ####[facility] CLIA [id number] [place] [address], [facility]31 [place] [facility], [place] [phone] Urine, cocaine presence Negative Normal Negative [facility] Comment on above: Result Comment: Nega tive Performed By: #### L [id number] ####[facility] CLIA [id number] [place] [address], [address] [facility] [place], [place] [phone] ED Provider Noteson 06-11-20 17 ED Provider Notes Encounter Department : [facility] EMERGENCY DEPARTMENTED Provider Notes by Neela Horne MD at 06/11/2017 2:18 PMAuthor: VALENTE Mackervice: Emergency MedicineAuthor Type: ED PhysicianFiled: 06/13/2017 11:09 AMDate of Service: 06/11/2017 2:18 PMStatus: SignedEditor: Neela Horne MD (ED Physician)CHIEF COMPLAINTChief ComplaintPatient presents with -Aphasia -Stroke AlertOwen Harvey is a 47 y.o. male who [...] MEDICAL HISTORYPast Medical History:DiagnosisDate -Back pain, chronic -[id number] -SVT (supraventricular tachycardia)hx of being offered ablaton [...] marked as taking for the 06/11/17 encounter ([facility]).ALLERG IESNo Known AllergiesPHYSICAL EXAMVITAL SIGNS: BP (!) 147/104 Pulse 89 Temp 98.8 ?F (37.1 ?C) Resp 15 Ht 6' (1.829 m) Wt(!) 242 lb (109.8 kg) SpO2 98% BMI 32.82 kg/t6Sekvsm during ED course were reviewed and are [...] encounter of 06/11/17EKG Standard 12 leadResultValueRef RangeRR TFVXLCTK984wiTX Gtomzjnr162tzQJNV Xbijafmk04ktUG Ixxeeqmb295plYVv Dtsxgbws739yxRlacw Finq58rvZ Nxhe89xfhNPT Pmub59xiyI Wave Kbug67sbjZ:40 Jfuh25jloL:40 Ixts09zeyNT Jvea694bvgUDFVQPRocmr rhythmREPORTProbable left atrial enlargementInterpreting PhysStudy Date/Iein2554-60-47 14:20:21RADIOLOGY/PROCEDUR ES/LABS/MEDICATIONS ADMINISTERED:CT-ANGIO HEAD AND NECK W [...] METABOLIC PANEL - Abnormal; Notable for the following:Dqppfjdw829 (*)98 - 107 mmol/XZrebwML511 (*)21 - 32 mmol/OFgzfvIDK45 (*)7 - 18 mg/dLFinalAll other components within normal limitsSERUM TOX SCREEN - Abnormal; Notable for the following:Acetaminophen Level<2 (*)10 - 30 ug/tAIdgtoMxasmhq865 (*)<=3 mg/dLFinalAll other components within normal limitsNarrative:Salicylate Therapeutic Range: 20-25 mg/dLAcetaminophen Therapeutic Range:10.00-30.00 ug/mLETHANOL - Abnormal; Notable for the following:[id number] (*)<=3 mg/dLFinalAll other components within normal limitsNarrative:Results [...] limitsLIPID PANEL - Abnormal; Notable for the following:[id number] (*)<=200 mg/dLFinalLDL Fvwijrolilc777 (*)0 - 99 mg/dLFinalAll other components within [...] for glycemic control:-Goal of therapy :< 7.0% XbX6d-Yqljyi suggested: >8.0% LbV2oQQ - NormalGLUCOSE POC RESULTS - NormalNarrative:Point of care test performed at bedside.CBC W/DIFFPOC GLUCOSE, BLOOD BY GLUCOSE MONITORING DEVICE (ACCUCHAmberAds)EXTRA TUBE-BLUEEXTRA TUBE-SSTEXTRA TUBE-PSTEXTRA TUBE-REDEXTRA TUBE-PURPLEMedications0.9 % sodium chloride 1,000 mL bolus ( Intravenous Stopped/Completed 06/11/17 1558)clopidogrel (PLAVIX) tablet 300 mg (300 mg Oral Given 06/11/17 1623)iohexol (OMNIPAQUE) 350 mg iodine/mL injection 100 mL (100 mLs Intravenous Given 06/11/171627)CT-HYPERACUTE HEAD W/O CON STROKECT-ANGIO HEADANDNECK W AND/OR [...] of hospitalization, the patient choose to leave A.Diagnosis and treatment plan were discussed in detail [...] care, and plan with those present in [facility].I have personally seen and examined [...] 06/13/2017 11:06 Helen Horne MD06/13/17 1109 Normal [facility] EKG STANDARD 12 LEADon 06-11 Pulse (Heart Rate) RR Interval= 659 msP R Interval= 133 msQRSD Interval= 87 msQT Interval= 342 msQTc Interval= 421 msHeart Rate= 91 msP [place]= 27 degQRS [place]= 24 degT Wave [place]= 34 degI: 40 [place]= 49 degT: 40 [place]= 21 degST [place]= 165 degSinus rhythm Probable left atrial enlargement Electronically Signed by: Justin Turner (DO) 14-Jun-2017 06:15:10 Date and Time of Study: 2017-06-11 14:20:21 Normal [facility] ETHANOLon 06-11-2017 Ethanol 248 mg/dL Abnormal <=3 [facility] Comment on above: Performed By: #### L AB15, LAB62, [id number], [id number] ####[facility] CLIA [id number] [place] [address]#### LAB46, LAB18 ####SHAI [facility] CLIA [id number] [place] [phone] Ethanol Normal [facility] Comment on above: Result Comment: Resu lts of this test should always be interpreted in conjunction with the patient's medical history, clinical presentation and other findings.The pharmacological response to blood alcohol levels may vary from individual to individual. The fatal concentration has been reported to be greater than 400 mg/dL. Performed By: #### L AB15, LAB62, [id number], [id number] ####[facility] CLIA [id number] [place] [address] [place]#### LAB46, LAB18 ####[facility] CLIA [id number] [place] [address] [place] [id number] [place], [place] [phone] HEMOGLOBIN A1Con 06-11-2017 Glucose mass conc 103 mg/dL Normal 68-126 [facility] Comment on above: Performed By: #### L AB90 ####SHAI [facility] [id number] [place] [address], [address] [place] [id number] [facility] BlvdBeavercre, [place] [phone] Hemoglobin A1c/Hemoglobin.total mass fraction (Bld) Normal [facility] Comment on above: Result Comment: Ther apeutic goals for glycemic control:-Goal of therapy :< 7.0% QyK5c-Cfhglb suggested: >8.0% HbA1c Performed By: #### L AB90 ####SHAI [facility] [id number] [facility]PITALVDBEAVERCRE, [address] [place] [address] [address]vdBeavercreAndrew [place] [phone] Hemoglobin A1c/Hemoglobin.total mass fraction (Bld) 5.2 % Normal 4.0-6.0 [facility] Comment on above: Performed By: #### L AB90 ####SHAI [facility] [id number] [place] [address], [address] [place] [address] Pentdign[facility] [place] BlvdBeaverJenn[place] [phone] LACTATE/LACTIC ACIDon 2016 Lactate 2.1 mmol/L Abnormal 0.4-2.0 [facility] Comment on above: Result Comment: This result has been reviewed. Performed By: #### L [id number] ####SHAI [facility] [id number] [place] [address], [address] AND [facility]3535 Pentdign[facility] [place] BlvdBeaverc[place], [place] [phone] LACTATE/LACTIC ACID Normal [facility] Comment on above: Result Comment: Put on ice - Place specimen on ice immediately after collection and transport to lab.Put on ice - Place specimen on ice immediately after collection and transport to lab. Performed By: #### L [id number] ####[facility] CLIA [id number] [place] [address] [facility]vd[address]averc[address], [place] [phone] Lactate 3.7 mmol/L Abnormal 0.4-2.0 [facility] Comment on above: Performed By: #### L [id number] ####[facility] [id number] [place] [address] [facility] AND [place] [address] [address], [phone] LACTATE/LACTIC ACID Normal [facility] Comment on above: Result Comment: Put on ice - Place specimen on ice immediately after collection and transport to lab. Performed By: #### L [id number] ####[facility] [id number] [place] [address] [facility]35[phone] LIPID PANELon 06-11-2017 Cholesterol 59 mg/dL Normal 40-60 [facility] Comment on above: Performed By: #### L AB15, LAB62, EDZ836, [id number] ####[facility] CLIA [id number] [place] [address] [place]#### LAB46, LAB18 ####[facility] CLIA [id number] [place] [address] [facility] AND [facility], [phone] Cholesterol 268 mg/dL Abnormal <=200 [facility] Comment on above: Performed By: #### L AB15, LAB62, YIZ148, [id number] ####[facility] [id number] [place] [address] [place]#### LAB46, LAB18 ####[facility] [id number] [place] [address] [facility], [place] [phone] LDL Cholesterol 181 mg/dL Abnormal 0-99 [facility] Comment on above: Performed By: #### L AB15, LAB62, UDB359, [id number] ####[facility] [id number] [place] [address] [place]#### LAB46, LAB18 ####SHAI AND [facility] [id number] [place] [address] [facility] AND [facility]avercre, [place] [phone] LIPID PANEL Normal [facility] Comment on above: Result Comment: ATP III Classification of LDL, Total and HDL Cholesterol (mg/dL)LDL Cholesterol: <100 Optimal 100-129 Near optimal/above optimal 130-159 Borderline high 160-189 High >=190 Very highTotal Cholesterol: <200 Desirable 200-239 Borderline high >=240 HighHDL Cholesterol: <40 Low >=60 High Performed By: #### L AB15, LAB62, MDU095, DFN883 ####[facility]AI [facility] [id number] [place] [address] [place]#### LAB46, LAB18 ####[facility] [id number] [place] [address] [facility]averc[address], [place] [phone] Triglyceride 139 mg/dL Normal 0-149 [facility] Comment on above: Performed By: #### L AB15, LAB62, OTQ429, QJO572 ####[facility] [id number] [place] [address], [address]#### LAB46, LAB18 ####[facility] [id number] [place] [address], [address] [place] [address] [address], [phone] VLDL CHOLESTEROL 28 mg/dL Normal 0-40 [facility] Comment on above: Performed By: #### L AB15, LAB62, XVR516, QSN340 ####[facility] [id number] [place] [address], [address]#### LAB46, LAB18 ####[facility] [id number] [place] [address], [address] [place] [address] [address]Be[address]cre[phone] PARTIAL THROMBOPLASTon 06-11 PARTIAL THROMBOPLASTIN TIME MECHANICAL 30.2 Seconds Normal 27.0-39.0 [facility] Comment on above: Performed By: #### L AB320 ####[facility] [id number] [place] [address], [address] [place] [address] [address], [phone]#### [id number] ####[facility] [id number] [place] [address], [address] PROTIME-INRon 06-11-2017 INR Coag RelTime (Bld) Normal [facility] Comment on above: Result Comment: Cond ition and INR Therapeutic Range:Deep venous thrombosis 2.0-3.0Pulmonary embolism 2.0-3.0Acute myocardial infarction 2.0-3.0Atrial fibrillation 2.0-3.0Antiphospholipid syndrome (no other risk factors) 2.0-3.0Antiphospholipid syndrome with recurrent thromboembolism 2.5-3.0Bioprosthetic (tissue) valve 2.0-3.0Mechanical prosthetic valves 2.0-3.0 or 2.5-3.5 depending on valve type and location Performed By: #### L AB320 ####[facility]AI [facility] [id number] [place] [address], [address] [place] [address] [address]vd[place]avercreCon[place] [address]#### [id number] ####[facility] [id number] [place] [address], [address] INR Coag RelTime (PPP) 1.0 {INR} Normal 0.8-1.1 [facility] Comment on above: Performed By: #### L AB320 ####[facility]AI AND [facility] [id number] [place] [address], [address] [place] [address] [address], [place] [address]#### [id number] ####[facility] [id number] [place] [address], [address] Prothrombin time (PT) Coag time (PPP) 11.4 s Normal 9.3-12.5 [facility] Comment on above: Performed By: #### L AB320 ####[facility]AI AND [facility] [id number] [place] [address], [address] [place] [address] [address]vd[place]averc[address], [place] [address]#### [id number] ####SHAI AND [facility] [id number] [place] [address], [address] Progress Noteson 06-11-2017 Progress Notes Encounter Department : [facility] EMERGENCY DEPARTMENTProgress Notes by Sandie Flores DO at 06/11/2017 2:13 PMAuthor: Chaka Osoriorvice: NeurologyAuthor Type: PhysicianFiled: 06/11/2017 2:25 PMDate of Service: 06/11/2017 2:13 PMStatus: SignedEditor: Sandie Flores DO (Physician)Spoke with the ER about the caseReviewed epic care everywhere no matching patients-> , DIO, InezT of head reviewed await radiology opinion in [...] cta head and neck given aphasia Normal [facility] SERUM TOX SCREENon 7 Acetaminophen mass conc <2 Abnormal 07-18 [facility] Comment on above: Performed By: #### L AB349 ####[facility] CLIA [id number] [facility] [address]VAL[address] BLVDBEAV[place] [address] [facility]35[address] [place] [phone] Ethanol 251 mg/dL Abnormal <=3 [facility] Comment on above: Performed By: #### L AB349 ####[facility] [id number] [place] [address] [facility] AND [facility]3535 [address]Northeast Health SystemvdBeaverSamantha [place] [phone] SALICYLATE (GMH/IRS) 3.5 mg/dl Normal 3.0-20.0 [facility] Comment on above: Performed By: #### L AB349 ####[facility] CLIA [id number] [place] [address] [facility] AND [facility]35[address] PentNortheast Health SystemvdBeBobby [place]ille [phone] SERUM TOX SCREEN Normal [facility] Comment on above: Result Comment: Sali cylate Therapeutic Range: 20-25 mg/dLAcetaminophen Therapeutic Range:10.00-30.00 ug/mL Performed By: #### L AB349 ####[facility] CLIA [id number] [place] [address] [facility]3535 [place], [place] [phone] Vital Signs Date Time Vital Sign Value Performing Clinician Facility 04-23-2025 08:00-0400 Body temperature 98.1 [degF] Dr. Kris Wood DO Work Phone: 5(831)380-997515 [place] [address] 04-23-2025 08:00-0400 Diastolic blood pressure 93 mm[Hg] Dr. Kris Wood DO Work Phone: 6(188)246-563715 [place] [address] 04-23-2025 08:00-0400 Heart rate 70 /min Dr. Kris Wood DO Work Phone: 1(588)572-292715 [place] [address] 04-23-2025 08:00-0400 Respiratory rate 16 /min Dr. Kris Wood DO Work Phone: 3(453)456-138115 [place] [address] 04-23-2025 08:00-0400 SaO2% (BldA) [Mass fraction] 99 % Dr. Kris Wood DO Work Phone: 3(127)627-630915 [place] [address] 04-23-2025 08:00-0400 Systolic blood pressure 138 mm[Hg] Dr. Kris Wood DO Work Phone: 6(675)434-552733 [place] [address] 04-23-2025 03:48-0400 Body mass index (BMI) [Ratio] 34.8 kg/m2 Dr. Kris Wood DO Work Phone: 2(262)912-640015 [place] [address] 04-23-2025 03:48-0400 Body weight 110.[address] Kris Wood DO Work Phone: 1(597)706-421945 [address] 04-20-2025 22:03-0400 Body temperature 96.8 [degF] Dr. Kris Wood DO Work Phone: 8(770)612-116733 [place] [address] 04-20-2025 22:03-0400 Diastolic blood pressure 81 mm[Hg] Dr. Kris Wood DO Work Phone: 0(539)581-738933 [place] [address] 04-20-2025 22:03-0400 Heart rate 71 /min Dr. Kris Wood DO Work Phone: 2(712)874-906015 [place] [address] 04-20-2025 22:03-0400 Respiratory rate 20 /min Dr. Kris Wood DO Work Phone: 1(333)153-881615 [place] [address] 04-20-2025 22:03-0400 SaO2% (BldA) [Mass fraction] 94 % Dr. Kris Wood DO Work Phone: 0(389)663-936115 [place] [address] 04-20-2025 22:03-0400 Systolic blood pressure 133 mm[Hg] Dr. Kris Wood DO Work Phone: 4(269)565-260815 [place] [address] 04-20-2025 21:04-0400 Body height 177.[address] Kris Wood DO Work Phone: 9(142)329-568215 [place] [address] 04-20-2025 21:04-0400 Body mass index (BMI) [Ratio] 35.4 kg/m2 Dr. Kris Wood DO Work Phone: 9(476)998-408033 [place] [address] 04-20-2025 21:04-0400 Body weight 112.[address] Kris Wood DO Work Phone: 1(976)793-661215 [place] [address] 02-18-2025 08:37-0400 Body temperature 97.9 [degF] Dr. Kris Wood DO Work Phone: 6(961)908-266915 [place] [address] 02-18-2025 08:37-0400 Diastolic blood pressure 91 mm[Hg] Dr. Kris Wood DO Work Phone: 4(165)207-221333 [place] [address] 02-18-2025 08:37-0400 Heart rate 77 /min Dr. Kris Wood DO Work Phone: 9(180)736-679333 [place] [address] 02-18-2025 08:37-0400 Respiratory rate 16 /min Dr. Kris Wood DO Work Phone: 4(705)836-478333 [place] [address] 02-18-2025 08:37-0400 SaO2% (BldA) [Mass fraction] 94 % Dr. Kris Wood DO Work Phone: 4(707)205-265815 [place] [address] 02-18-2025 08:37-0400 Systolic blood pressure 133 mm[Hg] Dr. Kris Wood DO Work Phone: 8(857)764-641415 [place] [address] 02-16-2025 10:56-0400 Body height 177.[address] Kris Wood DO Work Phone: 9(688)966-351015 [place] [address] 02-16-2025 10:56-0400 Body weight 112.[address] Kris Wood DO Work Phone: 4(348)972-801715 [place] [address] 02-15-2025 18:28-0400 Body mass index (BMI) [Ratio] 35.5 kg/m2 Dr. Kris Wood DO Work Phone: 3(293)994-367315 [place] [address] 02-15-2025 17:34-0400 Body temperature 98.4 [degF] Dr. Kris Wood DO Work Phone: 4(062)850-369015 [place] [address] 02-15-2025 17:34-0400 Diastolic blood pressure 78 mm[Hg] Dr. Kris Wood DO Work Phone: 1(370)674-418115 [place] [address] 02-15-2025 17:34-0400 Heart rate 78 /min Dr. Kris Wood DO Work Phone: 5(613)235-031715 [place] [address] 02-15-2025 17:34-0400 Respiratory rate 16 /min Dr. Kris Wood DO Work Phone: 5(941)810-462433 [place] [address] 02-15-2025 17:34-0400 SaO2% (BldA) [Mass fraction] 96 % Dr. Kris Wood DO Work Phone: 8(751)386-881233 [place] [address] 02-15-2025 17:34-0400 Systolic blood pressure 118 mm[Hg] Dr. Kris Wood DO Work Phone: 3(525)961-453015 [place] [address] 02-15-2025 15:33-0400 Body height 177.[address] Kris Wood DO Work Phone: [facility] 02-15-2025 15:33-0400 Body mass index (BMI) [Ratio] 35.6 kg/m2 Dr. Kris Wood DO Work Phone: [facility] 02-15-2025 15:33-0400 Body weight 112.[address] Kris Wood DO Work Phone: [facility] 07-26-2024 19:28-0500 Body mass index (BMI) [Ratio] 34.38 kg/m2 Diana Robertson APRN.INSTRUCTOR MODELING Work Phone: [facility] 07-26-2024 19:28-0500 Body temperature 97 [degF] Diana Robertson APRN.INSTRUCTOR MODELING Work Phone: [facility] 07-26-2024 19:28-0500 Body weight 108.7 kg Diana Robertson APRN.INSTRUCTOR MODELING Work Phone: [facility] 07-26-2024 19:28-0500 Diastolic blood pressure 75 mm[Hg] Diana Robertson APRN.INSTRUCTOR MODELING Work Phone: [facility] 07-26-2024 19:28-0500 Heart rate 64 /min Diana Robertson APRN.INSTRUCTOR MODELING Work Phone: [facility] 07-26-2024 19:28-0500 Respiratory rate 18 /min Diana Robertson APRN.INSTRUCTOR MODELING Work Phone: [facility] 07-26-2024 19:28-0500 SaO2% (BldA) [Mass fraction] 97 % Diana Robertson APRN.INSTRUCTOR MODELING Work Phone: [facility] 07-26-2024 19:28-0500 Systolic blood pressure 113 mm[Hg] Diana Robertson APRN.INSTRUCTOR MODELING Work Phone: [facility] 06-05-2024 08:29-0400 Body height 177.8 cm Peggy Nicole DO Work Phone: [facility] 06-05-2024 08:29-0400 Body mass index (BMI) [Ratio] 20.37 kg/m2 Peggy Bonnie DO Work Phone: [facility] 06-05-2024 08:29-0400 Body weight 64.41 kg Peggy Bonnie DO Work Phone: [facility] 04-04-2024 09:51-0400 Body height 177.8 cm Peggy Bonnie DO Work Phone: [facility] 04-04-2024 09:51-0400 Body mass index (BMI) [Ratio] 34.72 kg/m2 Peggy Bonnie DO Work Phone: [facility] 04-04-2024 09:51-0400 Body weight 109.77 kg Peggy Bonnie DO Work Phone: [facility] 01-16-2024 14:56-0400 Body mass index (BMI) [Ratio] 33.82 kg/m2 Kwadwo Moomaw WORK ENVIRONMENT SAFETY INSPECTOR.INSTRUCTOR MODELING Work Phone: [facility] 01-16-2024 14:56-0400 Body temperature 97.59 [degF] Kwadwo Moomaw WORK ENVIRONMENT SAFETY INSPECTOR.INSTRUCTOR MODELING Work Phone: [facility] 01-16-2024 14:56-0400 Body weight 110 kg Kwadwo Moomaw WORK ENVIRONMENT SAFETY INSPECTOR.INSTRUCTOR MODELING Work Phone: [facility] 01-16-2024 14:56-0400 Diastolic blood pressure 87 mm[Hg] Kwadwo Moomaw WORK ENVIRONMENT SAFETY INSPECTOR.INSTRUCTOR MODELING Work Phone: [facility] 01-16-2024 14:56-0400 Heart rate 81 /min Kwadwo Moomaw WORK ENVIRONMENT SAFETY INSPECTOR.INSTRUCTOR MODELING Work Phone: [facility] 01-16-2024 14:56-0400 Respiratory rate 18 /min Kwadwo Moomaw WORK ENVIRONMENT SAFETY INSPECTOR.INSTRUCTOR MODELING Work Phone: [facility] 01-16-2024 14:56-0400 SaO2% (BldA) [Mass fraction] 95 % Kwadwo Moomaw WORK ENVIRONMENT SAFETY INSPECTOR.INSTRUCTOR MODELING Work Phone: [facility] 01-16-2024 14:56-0400 Systolic blood pressure 124 mm[Hg] Kwadwo Moomaw WORK ENVIRONMENT SAFETY INSPECTORSabaMARCEL Work Phone: [facility] 12-19-2023 10:00-0400 Body temperature 97.7 [degF] Dr. Sloan Gonzalez Work Phone: [facility] 12-19-2023 10:00-0400 Diastolic blood pressure 85 mm[Hg] Dr. Sloan Gonzalez Work Phone: [facility] 12-19-2023 10:00-0400 Heart rate 55 /min Dr. Sloan Gonzalez Work Phone: [facility] 12-19-2023 10:00-0400 Respiratory rate 14 /min Dr. Sloan Gonzalez Work Phone: [facility] 12-19-2023 10:00-0400 SaO2% (BldA) [Mass fraction] 97 % Dr. Sloan Gonzalez Work Phone: [facility] 12-19-2023 10:00-0400 Systolic blood pressure 130 mm[Hg] Dr. Sloan Gonzalez Work Phone: [facility] 12-18-2023 11:00-0400 Inhaled oxygen flow rate 96 L/min Dr. Sloan Gonzalez Work Phone: [facility] 12-17-2023 17:02-0400 Body height 180.[address] Sloan Gonzalez Work Phone: [facility] 12-17-2023 17:02-0400 Body mass index (BMI) [Ratio] 32.9 kg/m2 Dr. Sloan Gonzalez Work Phone: [facility] 12-17-2023 17:02-0400 Body weight 107.[address] Sloan Gonzalez Work Phone: [facility] 12-17-2023 16:00-0400 Body temperature 98.2 [degF] Dr. Sloan Gonzalez Work Phone: [facility] 12-17-2023 16:00-0400 Diastolic blood pressure 82 mm[Hg] Dr. Sloan Gonzalez Work Phone: [facility] 12-17-2023 16:00-0400 Heart rate 73 /min Dr. Sloan Gonzalez Work Phone: [facility] 12-17-2023 16:00-0400 Respiratory rate 18 /min Dr. Sloan Gonzalez Work Phone: [facility] 12-17-2023 16:00-0400 SaO2% (BldA) [Mass fraction] 95 % Dr. Sloan Gonzalez Work Phone: [facility] 12-17-2023 16:00-0400 Systolic blood pressure 129 mm[Hg] Dr. Sloan Gonzalez Work Phone: [facility] 12-17-2023 13:26-0400 Body height 180.[address] Sloan Gonzalez Work Phone: [facility] 12-17-2023 13:26-0400 Body mass index (BMI) [Ratio] 34 kg/m2 Dr. Sloan Gonzalez Work Phone: [facility] 12-17-2023 13:26-0400 Body weight 110.[address] Sloan Gonzalez Work Phone: [facility] 04-19-2023 12:12-0400 Body height 180.3 cm Peggy Nicole DO Work Phone: [facility] 04-19-2023 12:12-0400 Body weight 108.86 kg Peggy Bonnie DO Work Phone: [facility] 02-16-2023 16:02-0400 Body height 177.8 cm Dae Mastrucci WORK ENVIRONMENT SAFETY INSPECTOR.INSTRUCTOR MODELING Work Phone: [facility] 02-16-2023 16:02-0400 Body weight 105.69 kg Dae Mastrucci WORK ENVIRONMENT SAFETY INSPECTOR.INSTRUCTOR MODELING Work Phone: [facility] 02-16-2023 16:02-0400 Diastolic blood pressure 91 mm[Hg] Dae Mastrucci WORK ENVIRONMENT SAFETY INSPECTOR.INSTRUCTOR MODELING Work Phone: [facility] 02-16-2023 16:02-0400 Heart rate 75 /min Dae Mastrucci WORK ENVIRONMENT SAFETY INSPECTOR.INSTRUCTOR MODELING Work Phone: [facility] 02-16-2023 16:02-0400 Respiratory rate 18 /min Dae Mastrucci WORK ENVIRONMENT SAFETY INSPECTOR.INSTRUCTOR MODELING Work Phone: [facility] 02-16-2023 16:02-0400 SaO2% (BldA) [Mass fraction] 97 % Dae Mastrucci WORK ENVIRONMENT SAFETY INSPECTOR.INSTRUCTOR MODELING Work Phone: [facility] 02-16-2023 16:02-0400 Systolic blood pressure 133 mm[Hg] Dae Mastrucci WORK ENVIRONMENT SAFETY INSPECTOR.INSTRUCTOR MODELING Work Phone: [facility] 10-15-2021 09:48-0500 Body height 177.8 cm Andre Sernaicino DPM Work Phone: [facility] 10-15-2021 09:48-0500 Body mass index (BMI) [Ratio] 34.29 kg/m2 Andre Kareemicino DPM Work Phone: [facility] 10-15-2021 09:48-0500 Body weight 108.41 kg Andre Sernaicino DPM Work Phone: [facility] 10-14-2021 11:09-0500 Body height 177.8 cm Alda Maria MD Work Phone: [facility] 10-14-2021 11:09-0500 Body mass index (BMI) [Ratio] 34.29 kg/m2 Alda Maria MD Work Phone: [facility] 10-14-2021 11:09-0500 Body temperature 97 [degF] Alda Maria MD Work Phone: [facility] 10-14-2021 11:09-0500 Body weight 108.41 kg Alda Maria MD Work Phone: [facility] 10-14-2021 11:09-0500 Diastolic blood pressure 80 mm[Hg] Alda Maria MD Work Phone: [facility] 10-14-2021 11:09-0500 Heart rate 88 /min Alda Maria MD Work Phone: [facility] 10-14-2021 11:09-0500 Respiratory rate 18 /min Alda Maria MD Work Phone: [facility] 10-14-2021 11:09-0500 SaO2% (BldA) [Mass fraction] 94 % Alda Maria MD Work Phone: [facility] 10-14-2021 11:09-0500 Systolic blood pressure 134 mm[Hg] Alda Maria MD Work Phone: [facility] 10-01-2021 10:18-0500 Body height 177.8 cm Andre Sernaicino DPM Work Phone: [facility] 10-01-2021 10:18-0500 Body mass index (BMI) [Ratio] 34.15 kg/m2 Andre Kareemicino DPM Work Phone: [facility] 10-01-2021 10:18-0500 Body weight 107.96 kg Andre Mendicino DPM Work Phone: [facility] 09-07-2021 17:55-0500 Body temperature 98.49 [degF] Ebunoluwa Wion DO Work Phone: [facility] 09-07-2021 17:55-0500 Body weight 107.96 kg Ebunoluwa Wion DO Work Phone: [facility] 09-07-2021 17:55-0500 Diastolic blood pressure 82 mm[Hg] Ebunoluwa Wion DO Work Phone: [facility] 09-07-2021 17:55-0500 Heart rate 83 /min Ebunoluwa Wion DO Work Phone: [facility] 09-07-2021 17:55-0500 Respiratory rate 16 /min Ebunoluwa Wion DO Work Phone: [facility] 09-07-2021 17:55-0500 SaO2% (BldA) [Mass fraction] 94 % Ebmahamed Wion DO Work Phone: [facility] 09-07-2021 17:55-0500 Systolic blood pressure 129 mm[Hg] Ebmahamed Bowleson DO Work Phone: [facility] 12-22-2020 18:15-0400 Body Temperature 97.5 [degF] [facility] 12-22-2020 18:15-0400 BP Diastolic 80 mm[Hg] [facility] 12-22-2020 18:15-0400 BP Systolic 144 mm[Hg] [facility] 12-22-2020 18:15-0400 Pulse (Heart Rate) 74 /min [facility] 12-22-2020 18:15-0400 Pulse Oximetry 95 % [facility] 12-22-2020 18:15-0400 Respiratory Rate 20 /min [facility] 12-22-2020 09:00-0400 BMI (Body Mass Index) 28.7 kg/m2 [facility] 12-22-2020 09:00-0400 Body weight 90.72 kg [facility] 12-22-2020 09:00-0400 Height 177.8 cm [facility] 04-27-2020 11:10-0400 BMI (Body Mass Index) 30.13 kg/m2 [facility] 04-27-2020 11:10-0400 Body Temperature 98.01 [degF] [facility] are System 04-27-2020 11:10-0400 Body weight 95.25 kg [facility] 04-27-2020 11:10-0400 BP Diastolic 87 mm[Hg] [facility] 04-27-2020 11:10-0400 BP Systolic 141 mm[Hg] [facility] 04-27-2020 11:10-0400 Height 177.8 cm [facility] 04-27-2020 11:10-0400 Pulse (Heart Rate) 82 /min [facility] 04-27-2020 11:10-0400 Pulse Oximetry 98 [...] 08-29-2019 18:54-0500 Respiratory Rate 16 /min Ananda Vicente [facility] 08-29-2019 14:12-0500 Body Temperature 97.2 [degF] [facility] 08-29-2019 10:11-0500 BMI (Body Mass Index) 33.05 kg/m2 Ananda [facility]ente [facility] 08-29-2019 10:11-0500 Body weight 97.16 kg Ananda [facility] 08-29-2019 10:11-0500 Height 171.5 cm Ananda [facility] 07-24-2019 18:03-0500 Body Temperature 98.71 [degF] Olayinka Morgan [facility] are System 07-24-2019 18:03-0500 BP Diastolic 81 mm[Hg] [facility]inka [facility] 07-24-2019 18:03-0500 BP Systolic 124 mm[Hg] [facility] 07-24-2019 18:03-0500 Pulse (Heart Rate) 93 /min [facility] 07-24-2019 18:03-0500 Pulse Oximetry 96 % [facility]ink[facility] 07-24-2019 18:03-0500 Respiratory Rate 16 /min [facility]ink[facility] 07-24-2019 16:20-0500 BMI (Body Mass Index) 29.29 kg/m2 Olayinka Morgan [employer] System 07-24-2019 16:20-0500 Body weight 95.25 kg [facility]ayinka [facility] 07-24-2019 16:20-0500 Height 180.3 cm [facility]ayinka [facility] 06-20-2019 17:42-0400 BMI (Body Mass Index) 29.01 kg/m2 Tomi Uriarte [facility] 06-20-2019 17:42-0400 Body Temperature 98.2 [degF] Tomi Uriarte [facility] are System 06-20-2019 17:42-0400 Body weight 94.35 kg [facility] 06-20-2019 17:42-0400 BP Diastolic 78 mm[Hg] [facility] 06-20-2019 17:42-0400 BP Systolic 134 mm[Hg] [facility] 06-20-2019 17:42-0400 Height 180.3 cm [facility] 06-20-2019 17:42-0400 Pulse (Heart Rate) 53 /min Tomi Uriarte [facility] System 06-20-2019 17:42-0400 Pulse Oximetry 97 % [facility] 06-20-2019 17:42-0400 Respiratory Rate 19 /min Tomi Uriarte [facility] System Encounters Encounter Date Encounter Type Care Provider Facility Start: 04-23-2025 Non-patient / Non-visit Dr. Cristina [facility] Work Phone: Start: 04-22-2025 Non-patient / Non-visit Dr. Crist[facility] Work Phone: Start: 04-21-2025 Non-patient / Non-visit Dr. Cristina [facility] Work Phone: Start: 04-20-2025 ambulatory [facility] Facility:[facility] Start: 04-20-2025 End: 04-23-2025 Evaluation and management of inpatient Dr. Umang Arias DO -[facility] Work Phone: Start: 02-18-2025 Non-patient / Non-visit Dr. Tammy Cespedes MD [facility] Work Phone: Start: 02-17-2025 Non-patient / Non-visit Dr. Vu Jean MD -[place] [facility] Work Phone: Start: 02-16-2025 Non-patient / Non-visit Dr. Vu Jean MD -[facility] Work Phone: Start: 02-15-2025 Non-patient / Non-visit Dr. Samatnha Leung MD -[facility] Work Phone: Start: 02-15-2025 ambulatory Samantha Leung Facility [facility] Start: 02-15-2025 End: 02-18-2025 Evaluation and management of inpatient Dr. Samantha Leung MD -[facility] Work Phone: Start: 07-26-2024 End: 07-26-2024 ambulatory PEGGYMika NICOLE Facility:[facility] Start: 07-26-2024 End: 07-26-2024 Patient encounter procedure Diana Robertson APRN.INSTRUCTOR MODELING Work Phone: [facility] Comment on above: Pain, dental (Primar y Dx) Start: 07-07-2024 End: 07-09-2024 Refill science[employer]ite Work Phone: [facility] [place] Comment on above: Refill Request Start: 06-27-2024 End: 06-27-2024 ambulatory Jan LEE Facility:[facility] Start: 06-05-2024 End: 06-05-2024 Distance [email or web address] Work Phone: [facility] [place] Comment on above: Encounter for comple tion of form with patient (Primary Dx); WHITNEY (generalized anxiety disorder) Start: 05-28-2024 End: 05-29-2024 ambulatory [employer] Work Phone: [facility] [place] Comment on above: Donor Suitability Fo li Start: 04-04-2024 End: 04-04-2024 Distance Health Peggy [employer] Work Phone: [facility] [place] Comment on above: DDD (degenerative di sc disease), lumbar (Primary Dx); Screening for colon cancer; Hypertension, essential; Alcohol abuse; WHITNEY (generalized anxiety disorder) Start: 01-27-2024 ambulatory Peggymika Dumont O Work Phone: [facility] [place] Comment on above: Valaciclovir Herpes Start: 01-16-2024 End: 01-16-2024 ambulatory PEGGYMika NICOLE Facility:[facility] Start: 01-16-2024 End: 01-16-2024 Patient encounter procedure Kwadwo Spivey WORK ENVIRONMENT SAFETY INSPECTOR.INSTRUCTOR MODELING Work Phone: [facility] Comment on above: Impacted cerumen of left ear (Primary Dx) Start: 12-19-2023 Non-patient / Non-visit Dr. Félix Gonzalez Work Phone: [facility] Work Phone: Start: 12-18-2023 Non-patient / Non-visit Dr. Félix Gonzalez Work Phone: [facility] Work Phone: Start: 12-17-2023 Non-patient / Non-visit Dr. Félix Gonzaelz Work Phone: [facility] Work Phone: Start: 12-17-2023 End: 12-19-2023 Evaluation and management of inpatient Dr. Sloan Gonzalez Work Phone: [facility] 3 Work Phone: Start: 11-01-2023 Refill Peggy Werner Work Phone: [facility] [place] Comment on above: Refill Request Start: 10-20-2023 Refill Peggymika Dumont O Work Phone: [facility] [place] Comment on above: Refill Request Start: 10-06-2023 End: 10-06-2023 ambulatory PEGGY NICOLE Facility:[facility] Start: 09-30-2023 End: 10-01-2023 Emergency department patient visit FLACO THOMAS JESSICA Facility:[facility] Start: 08-17-2023 Refill Peggy Dumont O Work Phone: [facility] [place] Comment on above: Refill Request Start: 08-09-2023 End: 08-09-2023 ambulatory ALECIA BESS Facility:[facility] Start: 08-09-2023 End: 08-09-2023 Patient encounter procedure Jamesse Michael [facility] Comment on above: Uncomplicated alcoho l dependence (HCC) [F10.20] (Primary Dx) Start: 07-28-2023 Chart abstracting Alecia Lundy Work Phone: [facility] Comment on above: Behavioral Health/So cial Work Start: 07-20-2023 Refill Peggy J Bonnie D O Work Phone: [facility] [place] Comment on above: Refill Request Start: 07-19-2023 Telephone encounter Alecia PACHECO Work Phone: [facility] Comment on above: Behavioral Health/So cial Work Start: 07-11-2023 End: 07-11-2023 Distance Health Peggy J Bonnie DO Work Phone: [facility] [place] Comment on above: Cigarette nicotine d ependence with other nicotine-induced disorder (Primary Dx); WHITNEY (generalized anxiety disorder); Hypertension, essential Start: 07-06-2023 ambulatory Peggy J Bonnie D O Work Phone: [facility] [place] Comment on above: Prescription request Start: 06-24-2023 Refill Peggy J Bonnie D O Work Phone: [facility] [place] Comment on above: Refill Request Start: 06-07-2023 End: 06-07-2023 Distance Health Peggy J Bonnie DO Work Phone: [facility] [place] Comment on above: Hypertension, essent ial (Primary Dx); Plantar fasciitis, bilateral; Cigarette nicotine dependence with other nicotine-induced disorder Start: 05-16-2023 End: 05-17-2023 ambulatory PEGGY J BONNIE Facility:[facility] Start: 05-16-2023 Encounter for genera l adult medical examination without abnormal findings FLACO LOPEZ [facility] Start: 05-14-2023 Refill Peggy J Bonnie D O Work Phone: [facility] [place] Comment on above: Refill Request Start: 05-13-2023 Get Medical Advice Peggy ruiz DO Work Phone: [facility] [place] Comment on above: Medication refills Start: 04-20-2023 Telephone encounter Alecia PACHECO Work Phone: Adult [facility] Comment on above: Behavioral Health/So cial Work Start: 04-19-2023 End: 04-19-2023 Distance Health Peggymika Nicole DO Work Phone: [facility] [place] Comment on above: H/O spinal fusion (P rimary Dx); DDD (degenerative disc disease), lumbar; PTSD (post-traumatic stress disorder); History of alcoholism (HCC); WHITNEY (generalized anxiety disorder); Screening for colon cancer; Preventative health care Start: 04-19-2023 End: 04-19-2023 Patient encounter status Peggy Nicole DO Work Phone: [facility] Work Phone: Start: 02-21-2023 Telephone encounter Dae garcia WORK ENVIRONMENT SAFETY INSPECTOR.INSTRUCTOR MODELING Work Phone: [facility] Comment on above: Consult (ENT #[id number] ) Start: 02-16-2023 End: 02-16-2023 ambulatory DAE MARI Facility:[facility] Start: 02-16-2023 End: 02-16-2023 Patient encounter procedure Dae Mari WORK ENVIRONMENT SAFETY INSPECTOR.INSTRUCTOR MODELING Work Phone: [facility] Comment on above: Impacted cerumen of left ear (Primary Dx); Ear drainage, unspecified laterality Start: 02-23-2022 Refill Alda Maria MD Work Phone: [facility] Start: 11-18-2021 Refill Alda Maria MD Work Phone: [facility] Start: 10-15-2021 End: 10-15-[address] [facility] Start: 10-15-2021 End: 10-15-2021 Office outpatient visit 15 minutes Andre Duong DPM Work Phone: [facility] Comment on above: Closed fracture of b ase of fifth metatarsal bone of left foot, initial encounter (Primary Dx) Start: 10-14-2021 End: 10-14-[address] [facility] Start: 10-14-2021 End: 10-14-2021 Office outpatient new 45 minutes Alda Maria MD Work Phone: [facility] Comment on above: Uncomplicated alcoho l dependence (HCC) (Primary Dx); HSV-1 infection; Chronic bilateral low back pain without sciatica; Anxiety with depression Start: 10-09-2021 End: 10-09-2021 Emergency department patient visit PHYSICIAN NATY [facility] Start: 10-01-2021 End: 10-01-2021 ambulatory EBUNOLUWA BOLATITO WION [facility] Start: 10-01-2021 End: 10-01-2021 Office outpatient new 30 minutes Ebunoluwa B Wion DO Work Phone: [facility] Comment on above: Gastrocnemius equinu s, unspecified laterality (Primary Dx); Plantar fasciitis of right foot; Pes planus, unspecified laterality; Peroneal tendonitis, right Start: 09-07-2021 End: 09-07-2021 Office outpatient new 45 minutes Ebunoluwa B Wion DO Work Phone: [facility] [place] Comment on above: Plantar fasciitis of right foot (Primary Dx); Pes planus, unspecified laterality; Peroneal tendonitis, right Start: 12-22-2020 End: 12-22-2020 Emergency department patient visit Violetta Herrera Work Phone: [facility] Emergency Dept Comment on above: Depression, unspecif ied depression type (Primary Dx); History of alcohol abuse; Lab test negative for COVID-19 virus Start: 04-27-2020 End: 04-27-2020 Emergency department patient visit Tan Marrero Work Phone: [facility] Comment on above: Partial thickness bu rn of left wrist, initial encounter (Primary Dx) Start: 11-08-2019 End: 11-08-2019 Patient encounter procedure Christian Gabriel Work Phone: [facility] Start: 11-07-2019 End: 11-07-2019 Letter encounter Reed Ferrera [facility] Start: 10-29-2019 End: 10-29-2019 Refill Karrie Willis Work Phone: [facility] Comment on above: Chronic low back keke n, unspecified back pain laterality, unspecified whether sciatica present Start: 10-23-2019 End: 10-23-2019 Telephone encounter Karrie Willis Work Phone: [facility] Comment on above: Information or Advic e only Start: 10-17-2019 End: 10-17-2019 E-mail encounter from carer Karrie Willis Work Phone: [facility] Start: 10-17-2019 Patient encounter procedure Karrie Willis Work Phone: [facility] Comment on above: RE: Prescription Que stion Start: 10-15-2019 End: 10-15-2019 Professional / ancillary services management Negrita BARNES Start: 10-01-2019 End: 10-01-2019 Refill Karrie Willis Work Phone: [facility] Comment on above: Chronic low back keke n, unspecified back pain laterality, unspecified whether sciatica present Start: 10-01-2019 End: 10-01-2019 Refill Karrie Willis Work Phone: [facility] Comment on above: Chronic low back keke n, unspecified back pain laterality, unspecified whether sciatica present Start: 09-25-2019 End: 09-25-2019 Refill Karrie Willis Work Phone: [facility] Comment on above: Chronic low back keke n, unspecified back pain laterality, unspecified whether sciatica present Start: 09-24-2019 End: 09-24-2019 Subsequent hospital visit by physician Karrie Willis Work Phone: [facility] Comment on above: Arrived Start: 09-24-2019 End: 09-24-2019 Patient encounter procedure Christian Gabriel Work Phone: [facility] Start: 09-17-2019 End: 09-17-2019 Subsequent [...] visit by physician Ananda Zhang Work Phone: [facility] (OPS) Start: 08-27-2019 End: 08-27-2019 Subsequent hospital visit by physician Ananda Zhang Work Phone: [facility] Lab Comment on above: Pre-op testing; SVT (supraventricular tachycardia) (HCC) Start: 08-27-2019 End: 08-27-2019 Subsequent hospital visit by physician Karrie Willis Work Phone: [facility] Comment on above: Arrived Start: 08-20-2019 End: 08-20-2019 Subsequent hospital visit by physician Karrie Willis Work Phone: [facility] Comment on above: Arrived Start: 08-08-2019 End: 08-08-2019 Subsequent hospital visit by physician Karrie Willis Work Phone: [facility] Comment on above: Uncomplicated alcoho l dependence (HCC)- sober since 06/2019; Elevated liver enzymes Start: 07-30-2019 End: 07-30-2019 Subsequent hospital visit by physician Karrie Willis Work Phone: [facility] Comment on above: Bradycardia with 41- 50 beats per minute Start: 07-24-2019 End: 07-24-2019 Emergency department patient visit Olayinka Zhou Work Phone: [facility] Comment on above: Supraventricular tac hycardia (HCC) (Primary Dx) Start: 07-12-2019 End: 07-12-2019 Subsequent hospital visit by physician Karrie Willis Work Phone: [facility] Comment on above: SVT (supraventricula r tachycardia) (HCC) Start: 07-05-2019 End: 07-05-2019 Subsequent hospital visit by physician Karrie Willis Work Phone: [facility] PreAdmission Testing Comment on above: SVT (supraventricula r tachycardia) (HCC); Screening for lipid disorders Start: 06-20-2019 End: 06-20-2019 Emergency department patient visit Tomi Uriarte Work Phone: [facility] Emergency Dept Comment on above: Mood disorder (HCC) (Primary Dx) Start: 06-28-2017 End: 06-29-2017 Patient encounter DARRELL ROMERO [facility] Start: 06-27-2017 Ambulatory DARRELL Dumont [facility] Start: 06-11-2017 End: 06-11-2017 Emergency department patient visit NEELA Jeffery [facility] Procedures Date Procedure Procedure Detail Performing Clinician Start: 04-22-[address] Kris Wood DO Work Phone: Start: 04-22-2025 Serum inorganic phos phate measurement Dr. Kris Wood DO Work Phone: Start: 04-20-2025 Methadone measurement, urine Dr. Kris Wood DO Work Phone: Start: 04-20-[address] Kris Wood DO Work Phone: Start: 02-18-[address] Kris Wood DO Work Phone: Start: 02-18-[address] Kris Wood DO Work Phone: Start: 02-16-2025 Serum inorganic phos phate measurement Dr. Kris Wood DO Work Phone: Start: 02-15-2025 Methadone measurement, urine Dr. Kris Wood DO Work Phone: Start: 02-15-[address] Kris Wood DO Work Phone: Start: 05-16-2023 Lipid 1996 panel - S grant or Plasma Peggy Bonnie DO Work Phone: Start: 12-22-2020 SARS-COV-2 RAPID MOL ECULAR TEST Violetta Herrera Work Phone: Start: 12-22-2020 Drug tst prsmv instr mnt chem analyzers pr date Violetta Herrera Work Phone: Start: 12-22-2020 Urnls dip stick/tabl et reagent auto microscopy Nasra Hauser [employer] Work Phone: Start: 12-22-2020 Basic metabolic pane l calcium total Nasra Hauser [employer] Work Phone: Start: 12-22-2020 Drug screen quantita tive alcohols Violetta Herrera Work Phone: Start: 12-22-2020 GLOMERULAR FILTRATION RATE Nasra Hauser [employer] Work Phone: Start: 12-22-2020 Standard ECG Nasra Hauser [employer] Work Phone: Start: 12-22-2020 CBC WITH DIFFERENTIAL J theresa Hauser [employer] Work Phone: Start: 05-15-2020 Adult depression scr eening assessment Violetta Herrera Start: 08-29-2019 EP STUDY WITH ABLATION Unspecified Provider Start: 08-27-2019 Basic metabolic pane l calcium total Ananda Zhang Work Phone: Start: 08-27-2019 Blood count complete automated Ananda Zhang Work Phone: Start: 08-27-2019 GLOMERULAR FILTRATION RATE Ananda Zhang Work Phone: Start: 08-27-2019 TYPE AND SCREEN Ananda C amelia Work Phone: Start: 08-08-2019 Acute hepatitis panel K mini Willis Work Phone: Start: 08-08-2019 Hepatic function panel Karrie Smith Lazaro Work Phone: Start: 07-24-2019 Assay of magnesium Olayinka Zhou Work Phone: Start: 07-24-2019 Assay of phosphorus inorganic Olayinka Zohu Work Phone: Start: 07-24-2019 Assay of troponin quantitative Olayinka Zhou Work Phone: Start: 07-24-2019 Basic metabolic pane l calcium total Olayinka Zhou Work Phone: Start: 07-24-2019 GLOMERULAR FILTRATION RATE Olayinka Zhou Work Phone: Start: 07-24-2019 CBC WITH DIFFERENTIAL J ohramakrishna Zhou Work Phone: Start: 07-24-2019 Standard ECG Olayinka fernández Work Phone: Start: 07-05-2019 25 hydroxy includes fractions if performed Karrie Willis Work Phone: Start: 07-05-2019 Assay of folic acid serum Karrie Willis Work Phone: Start: 07-05-2019 Assay of glutamyltrase gamma Karrie Willis Work Phone: Start: 07-05-2019 Assay of magnesium Mike Smith Lazaro Work Phone: Start: 07-05-2019 Assay of thyroid sti mulating hormone tsh Karrie Willis Work Phone: Start: 07-05-2019 C-reactive protein Mike haley Sarah Lazaro Work Phone: Start: 07-05-2019 CBC WITH DIFFERENTIAL K rishaley Willis Work Phone: Start: 07-05-2019 Comprehensive metabo [...] Care Activity Detail Author Start: 08-08-2029 Colonoscopy [facility] Start: 08-08-2029 Screening for malignant neoplasm of colon COLORECTAL CANCER SCREENING [facility] Start: 05-16-2028 Lipid 1996 panel - Serum or Plasma Lipid Screening [facility] Start: 05-16-2028 Lipid panel Lipid Screening [facility] Start: 05-16-2028 LIPID SCREEN LIPID SCREEN [facility] Start: 09-30-2026 Diabetes Screening Diabetes Screening [facility] Start: 06-27-2026 Diabetes Screening Diabetes Screening [facility] Start: 05-16-2026 DIABETES SCREEN DIABETES SCREEN [facility] Start: 05-16-2026 Diabetes Screening Diabetes Screening [facility] Start: 07-26-2025 BP Controlled (<130/80) BP Controlled (<130/80) [facility] [facility] Start: 06-05-2025 Annual PCP Team Chronic Disease Visit Annual PCP Team Chronic Disease Visit [facility] Start: 04-23-2025 Patient discharge [facility] Start: 04-21-2025 Following clinical pathway protocol [facility] Start: 04-21-2025 Consultation [facility] Start: 04-20-2025 Ambulation without limitation [facility] Start: 04-20-2025 Assessment of risk of venous thromboembolism [facility] Start: 04-20-2025 Insertion of catheter into peripheral vein [facility] Start: 04-20-2025 Measuring intake and output [facility] Start: 04-20-2025 Providing care according to standard [facility] Start: 04-20-2025 Referral to service [facility] Start: 04-20-2025 Seizure precautions [facility] Start: 04-20-2025 Tobacco use cessation education [facility] Start: 04-20-2025 [facility] Start: 04-20-2025 Verification routine [facility] Start: 04-20-2025 Admission procedure [facility] Start: 04-20-2025 Hospital admission, emergency, from emergency room, medical nature [facility] Start: 04-04-2025 Annual PCP Team Chronic Disease Visit Annual PCP Team Chronic Disease Visit [facility] Start: 02-18-2025 Patient discharge [facility] Start: 02-18-2025 Ultrasonography of abdomen Abdomen Limited [facility] Start: 02-18-2025 US Abdomen limited [facility] Start: 02-16-2025 Hepatic function panel [facility] Start: 02-16-2025 Prothrombin time [facility] Start: 02-16-2025 Serum inorganic phosphate measurement [facility] Start: 02-16-2025 Thyroid stimulating hormone measurement [facility] Start: 02-15-2025 Following clinical pathway protocol [facility] Start: 02-15-2025 Hospital admission, emergency, from emergency room, medical nature [facility] Start: 02-15-2025 End: 02-15-2025 [facility] Start: 02-15-2025 Prothrombin time [facility] Start: 02-15-2025 Admission procedure [facility] Start: 02-15-2025 Ambulation without limitation [facility] Start: 02-15-2025 Assessment of risk of venous thromboembolism [facility] Start: 02-15-2025 Insertion of catheter into peripheral vein [facility] Start: 02-15-2025 Providing care according to standard [facility] Start: 02-15-2025 Verification routine [facility] Start: 02-15-2025 End: 02-15-2025 [facility] Start: 02-15-2025 Consultation [facility] Start: 02-15-2025 Patient referral to dietitian [facility] Start: 12-09-2024 Urine microalbumin profile [facility] Start: 10-06-2024 Annual PCP Team Chronic Disease Visit Annual PCP Team Chronic Disease Visit [facility] Start: 07-11-2024 Annual PCP Team Chronic Disease Visit Annual PCP Team Chronic Disease Visit [facility] Start: 07-05-2024 Fasting lipid profile LIPID SCREENING [facility] Start: 07-05-2024 LIPID SCREEN LIPID SCREEN [facility] Start: 06-05-2024 End: 06-05-2024 ambulatory 06/05/2024 8:40 AM EDT [facility] [address] [place] [address] Peggy Nicole DO [address] [place] [address] [employer] [place] Comment on above: [employer]. Start: 05-20-2024 Covid-19 Vaccine ( season) Covid-19 Vaccine () [facility] Start: 05-20-2024 Covid-19 Vaccine () Covid-19 Vaccine () [facility] Start: 05-20-2024 Influenza vaccination [facility] Start: 05-18-2024 End: 05-18-2024 Patient encounter procedure 05/18/2024 11:30 AM EDT Office Visit Otolaryngology [address] [address] Gladis Caban MD [address] [address] Ear drainage, unspecified laterality [H92.10] Otolaryng[facility] Comment on above: Ear drainage, unspecified laterality [H9 2.10] Start: 03-19-2024 End: 03-19-2024 Patient encounter procedure 03/19/2024 2:30 PM EDT Office Visit Otolaryngology [address] [address] Gladis Caban MD [address] [address] Ear drainage, unspecified laterality [H92.10] [facility] Comment on above: Ear drainage, unspecified laterality [H9 2.10] Start: 02-12-2024 Prostate specific antigen measurement Prostate Cancer Screening Discussion [facility] Start: 12-19-2023 Patient discharge [facility] Start: 12-17-2023 Following clinical pathway protocol [facility] Start: 12-17-2023 Assessment of risk of venous thromboembolism [facility] Start: 12-17-2023 Notification of physician [facility] Start: 12-17-2023 Vital signs measurements [facility] Start: 12-17-2023 [facility] Start: 12-17-2023 Admission procedure [facility] Start: 12-17-2023 Hospital admission, emergency, from emergency room, medical nature [facility] Start: 09-19-2023 Behavioral Health Screening Behavioral Health Screening [facility] Start: 09-19-2023 Depression Assessment Depression Assessment [facility] Start: 05-20-2023 Covid-19 Vaccine () Covid-19 Vaccine () [facility] Start: 05-20-2023 Influenza vaccination [facility] Start: 04-19-2023 End: 06-19-2023 Comprehensive metabolic 2000 panel - Serum or Plasma COMP METABOLIC PANEL Lab Routine Preventative health care Expected: 04/19/2023, Expires: 06/19/2023 [facility] Work Phone: Comment on above: Expected: 04/19/2023, Expires: Start: 04-19-2023 End: 06-19-2023 Hemoglobin A1c in Blood HGB A1C Lab Routine Preventative health care Expected: 04/19/2023, Expires: 06/19/2023 [facility] Work Phone: Comment on above: Expected: 04/19/2023, Expires: Start: 04-19-2023 End: 06-19-2023 Lipid 1996 panel - Serum or Plasma LIPID PANEL BASIC Lab Routine Preventative health care Expected: 04/19/2023, Expires: 06/19/2023 [facility] Work Phone: Comment on above: Expected: 04/19/2023, Expires: Start: 09-19-2022 DEPRESSION ASSESSMENT DEPRESSION ASSESSMENT [facility] Start: 05-20-2022 Influenza vaccination Sequential Influenza Vaccine (Season Ended) [facility] Start: 11-02-2021 End: 11-02-2021 Patient encounter procedure 11/02/2021 Office Visit Orthopedic Surgery Andre Duong DPM [address] [place] [address] [facility] Orthopedic Surgeons Start: 10-14-2021 End: 10-14-2021 Patient encounter procedure 10/14/2021 Office Visit Primary Care Alda Maria MD [address] [place] [address] [facility] Primary Care Physicians Start: 09-22-2021 End: 09-22-2021 Patient encounter procedure 09/22/2021 Office Visit Orthopedic Surgery Andre Duong, ASHLEY [address] [place] [address] [facility] Start: 05-20-2021 Influenza vaccination Sequential Influenza Vaccine (#1) [facility] Start: 05-15-2021 Adult depression screening assessment DEPRESSION SCREENING [facility] Start: 08-08-2020 Adult depression screening assessment [facility] Comment on above: Postponed from 1981 (Provider Ashley vicente) Start: 06-11-2020 DIABETES SCREEN DIABETES SCREEN [facility] Start: 06-04-2020 End: 06-04-2020 Office Visit 06/04/2020 Office Visit Family Medicine Karrie Willis PA [address] [place] [address] [phone] [facility] Start: 05-20-2020 Influenza vaccination given INFLUENZA VACCINE (#1) [facility] Start: 01-08-2020 End: 01-08-2020 Office Visit 01/08/2020 Office Visit Christian Ann DDS [address] [place] [address] [phone] [facility] Start: 11-27-2019 End: 11-27-2019 Office Visit 11/27/2019 Office Visit Cardiology Ananda Zhagn MD [address] [address] [phone] [facility] Start: 11-14-2019 End: 11-14-2019 Office Visit 11/14/2019 Office Visit Family Medicine Karrie Willis PA [address] [place] [address] [phone] [facility] HODGESY [facility] ADULT Start: 11-08-2019 End: 11-08-2019 Office Visit 11/08/2019 Office Visit Dentistry Christian Gabriel DDS [address] [place] [address] [phone] [facility] Start: 10-15-2019 End: 10-15-2019 Office Visit 10/15/2019 Office Visit Cardiology Ananda Zhang MD [address] [address] [phone] [facility] Start: 10-01-2019 End: 10-01-2019 Appointment 10/01/2019 Appointment Physical Therapy Karrie Willis PA [address] [place] [address] [phone] Bogdan [address] PTA [facility] Start: 09-28-2019 End: 09-28-2019 Appointment [facility] Start: 09-24-2019 End: 09-24-2019 Appointment 09/24/2019 Appointment Physical Therapy Karrie Willis PA [address] [place] [address] [phone] Janet Resendiz [id number] PTA [facility] Start: 09-24-2019 End: 09-24-2019 Office Visit 09/24/2019 Office Visit Dentistry Harvey Christian, STEWARTS [address] [place] [address] [phone] [facility] Start: 09-21-2019 End: 09-21-2019 Appointment [facility] Start: 09-14-2019 End: 09-14-2019 Appointment 09/14/2019 Appointment Physical Therapy Karrie Willis PA [address] [place] [address] [phone] Negrita Zamora, BETH, DPT [facility] Start: 09-07-2019 End: 09-07-2019 Appointment 09/07/2019 Appointment Physical Therapy Karrie Willis PA [address] [address] [phone] Sosa Golden PTA [facility] Start: 09-03-2019 End: 09-03-2019 Appointment 09/03/2019 Appointment Physical Therapy Karrie Willis PA [address] [place] [address] [phone] Sosa Golden PTA [facility] Start: 08-31-2019 End: 08-31-2019 Appointment [facility] Start: 08-29-2019 End: 08-29-2019 Hospital Encounter [facility] (OP S) Comment on above: SUPRAVENTRICULAR TACHYCARDIA ABLATION (S [place]) Start: 08-27-2019 End: 08-27-2019 Appointment 08/27/2019 Appointment Physical Therapy Karrie Willis PA [address] [place] [address] [phone] Negrita Zamora, PT, DPT [facility] Start: 08-15-2019 End: 08-15-2019 Office Visit 08/15/2019 Office Visit Family Medicine Karrie Willis PA [address] [place] [address] [phone] [facility] CTY ROMAN ADULT Start: 08-14-2019 End: 08-14-2019 Office Visit 08/14/2019 Office Visit Cardiology Rupesh Franco MD [address] [place] [address] [phone] [facility] Start: 08-09-2019 Screening for malignant neoplasm of colon COLORECTAL CANCER SCREENING [facility] Start: 08-09-2019 End: 08-09-2019 Office Visit 08/09/2019 Office Visit Cardiology Ananda Zhang MD [address] [address] [phone] [facility] Start: 08-08-2019 End: 08-08-2019 Office Visit 08/08/2019 Office Visit Family Medicine Karrie Willis PA [address] [place] [address] [phone] [facility] MTY [facility] ADULT Start: 07-30-2019 End: 07-30-2019 Appointment 07/30/2019 Appointment Heart and Vascular Diagnostics Karrie Willis PA [address] [place] [address] [phone] [facility] Start: 07-12-2019 End: 07-12-2019 Appointment 07/12/2019 Appointment [facility] Karrie Willis PA [address] [place] [address] [phone] [id number] [facility] Start: 05-20-2019 Influenza vaccination given INFLUENZA VACCINE (#1) [facility] Start: 2019 Administration of herpes zoster vaccine Zoster Vaccines (1 of 2) [facility] Start: 2019 Colonoscopy COLON CANCER SCREENING 10 YEAR COLONOSCOPY [facility] Start: 2019 Screening for malignant neoplasm of colon [facility] Start: 2019 SHINGLES VACCINE (1 of 2) SHINGLES VACCINE (1 of 2) [facility] Start: 2019 SHINGRIX VACCINE (1 of 2) SHINGRIX VACCINE (1 of 2) [facility] Start: 2019 Zoster vaccine hzv live for subcutaneous use ZOSTER (SHINGLES) VACCINE (1 of 2) [facility] Start: 2014 COLOGUARD (FIT-DNA) COLOGUARD (FIT-DNA) [facility] Start: 2014 Colonoscopy COLONOSCOPY [facility] Start: 2014 COLORECTAL CANCER SCREENING COLORECTAL CANCER SCREENING [facility] Start: [address] COLONOGRAPHY [facility] Start: 2014 FECAL OCCULT BLOOD FECAL OCCULT BLOOD [facility] Start: 2014 Screening for malignant neoplasm of colon [facility] Start: 2014 SIGMOIDOSCOPY SIGMOIDOSCOPY [facility] Start: 1990 Tetanus, diphtheria and acellular pertussis vaccination TDAP/TD ADULT [facility] Start: 02-12-1988 Hepatitis B Vaccine (1 of 3 - 19+ 3-dose series) Hepatitis B Vaccine (1 of 3 - 19+ 3-dose series) [facility] Start: 1987 ANNUAL WELLNESS VISIT ANNUAL WELLNESS VISIT [facility] Start: 1987 Anxiety Screening Anxiety Screening [facility] Start: 1987 BP Controlled (<130/80) BP Controlled (<130/80) [facility] Start: 1987 Depression Screening Depression Screening [facility] Start: 1987 Hepatitis C screening Hepatitis C Screening [facility] Start: 1987 HEPATITIS C SCREENING HEPATITIS C SCREENING [facility] Start: 1987 HIV SCREENING HIV SCREENING [facility] Start: 1987 HIV screening HIV Screening [facility] Start: 1987 WELLNESS ANNUAL VISIT WELLNESS ANNUAL VISIT [facility] Start: 02-12-1984 HIV screening HIV Screening [facility] Start: 1981 Adult depression screening assessment PHQ9 DEPRESSION SCREENING [facility] Start: 1981 Depression screening using PHQ-9 (Patient Health Questionnaire 9) score Depression Screening (PHQ-2/9) [facility] Start: 02-12-1980 Diphtheria + pertussis + tetanus vaccine (product) DTAP/TDAP/TD VACCINE (1 - Tdap) [facility] Start: 1975 PNEUMOCOCCAL (1 - PCV) PNEUMOCOCCAL (1 - PCV) [facility] Start: 1975 [facility] Start: 1975 Pneumococcal Vaccine: Ped or At-Risk (1 - PCV) Pneumococcal Vaccine: Ped or At-Risk (1 - PCV) [facility] Start: 1975 Pneumococcal Vaccine: Ped or At-Risk (1 of 2 - PPSV23) Pneumococcal Vaccine: Ped or At-Risk (1 of 2 - PPSV23) [facility] Start: 1974 COVID-19 Vaccine (#1) COVID-19 Vaccine (#1) [facility] Start: 1974 COVID-19 Vaccine (1) COVID-19 Vaccine (1) [facility] Start: 02-12-1972 History and physical examination, annual for health maintenance Wellness Visit [facility] Start: 1969 COVID-19 VACCINE (#1) COVID-19 VACCINE (#1) [facility] Start: 1969 COLON CANCER SCREENING ANNUAL FOBT COLON CANCER SCREENING ANNUAL FOBT [facility] Start: 1969 HEPATITIS B (1 of 3 - 3-dose series) HEPATITIS B (1 of 3 - 3-dose series) [facility] Start: 1969 Hepatitis B Vaccine (1 of 3 - 3-dose series) Hepatitis B Vaccine (1 of 3 - 3-dose series) [facility] Start: 1969 Prostate specific antigen measurement PSA Level [facility] Start: 1969 Tetanus vaccination Tetanus: Every 10yrs [facility] Alanine aminotransfe rase [Enzymatic activity/volume] in Serum or Plasma [facility] Albumin [Mass/volume ] in Serum or Plasma [facility] Alkaline phosphatase [Enzymatic activity/volume] in Serum or Plasma [facility] Amphetamines [Presen ce] in Urine by Screen method >1000 ng/mL [facility] Amphetamines [Presen ce] in Urine by Screen method >1000 ng/mL [facility] Anion gap in Serum o r Plasma [facility] Benzodiazepine measurement, urine [facility] Benzodiazepine measurement, urine [facility] Bilirubin, total measurement [facility] Bilirubin.direct [Mass/volume] in Serum or Plasma [facility] BUN/Creatinine ratio [facility] Calcium [Mass/volume ] in Serum or Plasma [facility] Carbon dioxide, tota l [Moles/volume] in Central venous blood [facility] End: 07-30-2019 Cardiac Event Monitor - 30 Day Cardiac Event Monitor - 30 Day Cardiac Services Routine Bradycardia with 41-50 beats per minute 1 Occurrences starting 07/30/2019 until 07/30/2019 [facility] Comment on above: 1 Occurrences starting 07/30/2019 until 07/30/2019 Cardiac Event Monito r - 30 Day Cardiac Event Monitor - 30 Day Cardiac Services Routine Bradycardia with 41-50 beats per minute 07/30/2019 12:24 PM EST [facility] Cocaine measurement, urine [facility] Cocaine measurement, urine [facility] COLOGUARD COLOGUARD Lab Ro utine Screening for colon cancer Ordered: 04/19/2023 [facility] Work Phone: Comment on above: Ordered: 04/19/2023 COLOGUARD COLOGUARD Lab Ro utine Screening for colon cancer Ordered: 04/04/2024 [facility] Work Phone: Comment on above: Ordered: 04/04/2024 Creatinine [Mass/vol ume] in Serum or Plasma [facility] End: 07-12-2019 Echocardiogram complete (M-Mode/2D) Echocardiogram complete (M-Mode/2D) Echocardiography Routine SVT (supraventricular tachycardia) (HCC) 1 Occurrences starting 07/12/2019 until 07/12/2019 [facility] Comment on above: 1 Occurrences starting 07/12/2019 until 07/12/2019 Echocardiogram compl ete (M-Mode/2D) Echocardiogram complete (M-Mode/2D) Echocardiography Routine SVT (supraventricular tachycardia) (HCC) 07/12/2019 8:28 AM EDT [facility] Erythrocyte mean corpuscular volume determination [facility] fentaNYL [Presence] in Urine by Screen method [facility] fentaNYL [Presence] in Urine by Screen method [facility] Glucose [Mass/volume ] in Serum or Plasma [facility] Hematocrit [Volume Fraction] of Blood [facility] Hemoglobin [Mass/vol ume] in Blood [facility] End: 07-12-2019 Holter Monitor Complete - 24 Hour Holter Monitor Complete - 24 Hour Cardiac Services Routine SVT (supraventricular tachycardia) (HCC) 1 Occurrences starting 07/12/2019 until 07/12/2019 [facility] Comment on above: 1 Occurrences starting 07/12/2019 until 07/12/2019 Holter Monitor Compl ete - 24 Hour Holter Monitor Complete - 24 Hour Cardiac Services Routine SVT (supraventricular tachycardia) (HCC) 07/12/2019 9:55 AM EDT [facility] INR in Blood by Coagulation assay [facility] INR in Blood by Coagulation assay [facility] Leukocytes [#/volume ] in Blood [facility] Magnesium measurement [facility] Mean corpuscular hemoglobin concentration determination [facility] Mean corpuscular hemoglobin determination [facility] Measurement of renal function [facility] Methadone measuremen t, urine [facility] Methadone measuremen t, urine [facility] Neutrophil count [facility] Neutrophil percent differential count [facility] Oxygen Therapy Nasal Cannula; Liters Per Minute: 2.0 LPM; RT may modify oxygen administration per policy: Yes Maintain O2 sats > 92% Oxygen Therapy Nasal Cannula; Liters Per Minute: 2.0 LPM; RT may modify oxygen administration per policy: Yes Maintain O2 sats > 92% Respiratory Care Routine As Needed until discontinued starting 08/29/2019 [facility] Comment on above: As Needed until discontinued starting Patient Education Alcohol Withdr awal: What to Expect ED Withdrawal Alcohol [facility] Work Phone: Patient referral [facility] Work Phone: Phencyclidine [Prese nce] in Urine [facility] Phencyclidine [Prese nce] in Urine [facility] Platelets [#/volume] in Blood [facility] End: 08-29-2019 POCT glucose - for diabetic patients POCT glucose - for diabetic patients Point of Care Testing Routine One Time for 1 Occurrences starting 08/29/2019 until 08/29/2019 [facility] Comment on above: One Time for 1 Occurrences starting 08/19 until 08/29/[address] [facility] Pulse oximetry, continuous Pulse oximetry, continuous Respiratory Care Routine Continuous until discontinued starting 08/29/2019 [facility] Comment on above: Continuous until discontinued starting 1 10/30/2018 Red blood cell count [facility] Red cell distributio n width determination [facility] Serum chloride measurement [facility] Sodium measurement [facility] Standard ECG [facility] are System Comment on above: As Needed until discontinued starting Total protein measurement [facility] End: 07-24-2019 Troponin I.cardiac [Mass/Vol] Troponin I Lab Timed Now Then Every 3hr for 2 Occurrences starting 07/24/2019 until 07/24/2019 [facility] Comment on above: Now Then Every 3hr for 2 Occurrences sta rting 07/24/2019 until 07/24/2019 Troponin T.cardiac [Mass/volume] in Serum or Plasma by High sensitivity method [facility] Troponin T.cardiac [Mass/volume] in Serum or Plasma by High sensitivity method [facility] Urea nitrogen [Mass/volume] in Serum or Plasma [facility] Urine cannabinoid measurement [facility] Urine cannabinoid measurement [facility] Urine opiate measurement [facility] Urine opiate measurement [facility] Immunizations Immunization Date Immunization Notes Care Provider Mecca cortés 08-20-2019 influenza virus vaccine, unspecified formulation Tan Marrero [facility] 12-09-2014 tetanus toxoid, reduced diphtheria toxoid, and acellular pertussis vaccine, adsorbed Dae Kamaljit [employer] Work Phone: [facility] Payers Date Payer Category Payer Self-pay 2021 Medicaid [id number] 2021 Medicaid [id number] 2021 Unknown [id number] 2019 Medicaid [id number] 2019 Medicaid APRILNORMAJAMA MERCADO O [id number] 2019-Present [address] [place] [address] Medicaid [id number] 1969 Unknown [id number] [id number] 1969 Unknown [id number] [id number] 1969 Unknown [id number] [id number] 1969 Unknown [id number] [id number] Medicaid [id number] Unknown [id number] [id number] Unknown [id number] [id number] Unknown [id number] [id number] Unknown [id number] [id number] Unknown [id number] [id number] Unknown [id number] [id number] Unknown [id number] [id number] Unknown [id number] [id number] Unknown [id number] [id number] Unknown [id number] [id number] Unknown [id number] Social History Date Type Detail Facility Tobacco smoking stat [facility] Unknown if ever smoked [facility] Start: 1970 Sex Assigned At Not on file [facility] Start: 07-04-2019 End: 04-21-2025 Tobacco smoking status NHIS Current every day smoker [facility] History of tobacco use [facility]: 07-04-2019 End: 03-19-2024 Cigarettes smoked current (pack per day) - Reported [facility] Start: 07-04-2019 End: 07-26-2024 Alcohol intake Ex-drinker (finding) [facility] Start: 07-04-2019 History SDOH Alcohol Frequency 5 [facility] Start: 07-04-2019 Tobacco Comment interesting in quitting 07/04/19 [facility] Start: 07-04-2019 Alcohol Comment 1/5 of vodka daily- reports last drink was 15 days ago 07/04/19 [facility] Start: 08-09-2019 Tobacco Comment interesting in quitting 07/04/19spring [facility] Start: 07-24-2019 Alcohol Comment 1/5 of vodka daily- reports last drink was 07/04/19 [facility] Start: 04-27-2020 Tobacco smoking status NHIS Former smoker [facility] Start: 04-27-2020 End: 04-19-2023 Tobacco use and exposure Never used [facility] Start: 12-31-2019 Tobacco Comment quit 2 weeks ago 12/31/19 [facility] Start: 11-21-2019 Alcohol Comment sober for 5 months 11/21/19 [facility] Start: 12-22-2020 Alcohol intake Current drinker of alcohol (finding) [facility] Exposure to SARS-CoV -2 (event) Not sure [facility] Exposure to SARS-CoV -2 (event) Yes [facility] Start: 1970 End: 03-19-2024 Sex Assigned At [facility] Start: 02-16-2023 Alcohol Comment 41 days sober [facility] Adult Depression Screening Assessment 0 [facility] Start: 04-19-2023 Tobacco Comment 3-5 cigs currently [facility] Start: 12-17-2023 End: 12-18-2023 Tobacco smoking status NHIS Unknown if ever smoked [facility] Start: 1970 Sex Assigned At Male [facility] Start: 07-21-2024 Gender identity Identifies as male gender (finding) [facility] Start: 07-21-2024 Sexual orientation Heterosexual (finding) [facility] Medical Equipment Procedure Code Equipment Code Equipment Original Text Equi pment Identifier Dates Procedure Implant ([id number]) Goals Date Patient Goal Desired Activity /State Functional Status Date Assessment Result Facility 04-23-2025 Functional status Activity Ability Indepe ndent [facility] Work Phone: 04-22-2025 Functional status Ambulates [facility] Work Phone: 02-18-2025 Functional status Ambulates;Up ad janeth [facility] Work Phone: 12-19-2023 Functional status Ambulates [facility] Work Phone: Mental Status Date Assessment Result Facility 04-22-2025 Cognitive function Voice/Name [facility] Work Phone: 02-18-2025 Cognitive function Voice/Name [facility] Work Phone: 02-17-2025 Cognitive function Appropriate;Cooperativ e [facility] Work Phone: 12-19-2023 Cognitive function Patient Behavior Anxio us [facility] Work Phone: 12-18-2023 Cognitive function Voice/Name [facility] Work Phone: Clinical Notes 09-07-2021 to 04-23-2025 Note Date & Type Note Facility 04-23-2025 Note [facility] Medical Records Department [address] [place] [address] Discharge Summary 04/23/25 1114 MR#: [id number] Acct: [id number] Name: SLOAN HARVEY Rep #: [id number] : 1970 55 From: Cristina Salas DO PCP: Dr. Peggy Nicole DO Status:DIS IN Location: [place] [id number] Providers Date of Admission: 04/20/25 Date of Discharge: 04/23/25 Primary Care Physician: Dr. Peggy Nicole DO Reason For Visit: ETOH DETOX Diagnosis Discharge Diagnosis (1) Alcohol abuse: Status: Acute Code(s): F10.10 - Alcohol abuse, uncomplicated (2) Desire for detoxification: Status: Acute Plan Alcohol abuse with pending withdrawal - Patient has been sober previously but went back to his living environment that was not appropriate and relapsed - Currently homeless but does have plans for discharge - Continue phenobarbital taper - Continue thiamine and folate - Continue as needed medication for symptom management associated withdrawal - 180 consultation for assistance with outpatient follow-up - Social work/case management following - Anticipate discharge tomorrow Homelessness - Social work/case management consult for assistance Hypokalemia - Resolved History of polysubstance abuse - Alcohol, methamphetamines, cannabis - Recommend cessation of all substances History of alcohol hepatitis - LFTs not markedly elevated at this time Essential hypertension - Continue home amlodipine Osteoarthritis -continue home ibuprofen Depression/anxiety - Continue home duloxetine - Continue home BuSpar - Continue home hydroxyzine DVT prophylaxis - Continue enoxaparin CODE STATUS - Full code Medications at Discharge Home Medications amlodipine 5 [...] of Care Provided Minutes Spent on Discharge: 25 Hospital Course: Patient is a 55-year-old white male who presents emergency department [facility] on 04/20/2025 requesting detox from alcohol. Patient is currently drinking about 1-2/5 of vodka a day and has been doing so over the last 5 years punctuated by brief periods of sobriety. He also admits to cannabis use. He stated he was recently admitted and discharged but his living environment was not supportive enough and he relapsed. He states he has family that is willing to take him and his he is currently homeless. Over the last 2 weeks has been living out of his car. His family will take him and only if he is sober so he decided come the emergency department to get help. Patient reported he is trying to decrease the amount of alcohol he is drinking but alcohol level on the day of admission was 124 and he was complaining of intermittent hallucinations. His last drink prior to admission was on the evening of admission. He was admitted to the medical floor and placed on a phenobarbital taper, thiamine folate, and supportive medications for withdrawal symptoms. He was seen by [facility] and is already established at [facility] with outpatient care. He also follows with psychiatry there. They prescribed his psychiatric medications for him. His overall withdrawal was uneventful. By the a.m. of 04/23/2025 he was doing fairly well from a withdrawal standpoint CIWA was low. He had a psychiatry appointment on the day of discharge he was anxious to get there so we were able to discharge him home with outpatient follow-up at [facility] for IOP and psychiatry on 04/23/2025 he was seen by case management to assist with his living arrangements. Discharge diagnoses: Acute alcohol withdrawal Alcohol abuse Homelessness Hypokalemia-resolved History of polysubstance abuse History of alcohol hepatitis Essential hypertension Osteoarthritis Depression Anxiety Physical Exam Const alert, oriented x3, no apparent distress, no limitations, healthy appearing and well nourished Constitutional Narrative: Obese, middle-aged, white male, lying in bed sleeping but awakens easily, appears comfortable, nontoxic, interacts appropriately General Appearance: cooperative, comfortable, well kempt and well developed Exam Limitations: no limitations Nutritional Appearance: obese HEENT normocephalic, head/scalp atraumatic, hearing grossly normal bilaterally and moist oral mucous membranes Resp normal respiratory effort, no retractions, no use of accessory muscles and clear to auscultation bilaterally Cardio regular rate, regular rhythm, S1 normal heart sound, S2 normal heart sound, no murmurs, no rub, no gallops and no cl (more content not included)... [facility] 04-23-2025 Consult note [facility] 04-23-2025 Discharge summary Note Date/Time April 23, 2025 8:56am [facility] Medical Records Department [address] [place] [address] Discharge Summary 04/23/25 0740 MR#: [id number] Acct: [id number] Name: SLOAN HARVEY Rep #:[id number] : 1970 55 From: Cristina Salas DO PCP: Dr. Peggy Nicole DO Status:ADM IN Location: [place] [id number] Providers Date of Admission: 04/20/25 Primary Care Physician: Dr. Peggy Nicole DO Reason For Visit: ETOH DETOX Diagnosis Discharge Diagnosis (1) Alcohol abuse: Status: Acute Code(s): F10.10 - Alcohol abuse, uncomplicated (2) Desire for detoxification: Status: Acute Plan Alcohol abuse with pending withdrawal - Patient has been sober previously but went back to his living environment thatwas not appropriate and relapsed - Currently homeless but does have plans for discharge - Continue phenobarbital taper - Continue thiamine and folate - Continue as needed medication for symptom management associated withdrawal - 180 consultation for assistance with outpatient follow-up - Social work/case management following - Anticipate discharge tomorrow Homelessness - Social work/case management consult for assistance Hypokalemia - Resolved History of polysubstance abuse - Alcohol, methamphetamines, cannabis - Recommend cessation of all substances History of alcohol hepatitis - LFTs not markedly elevated at this time Essential hypertension - Continue home amlodipine Osteoarthritis -continue home ibuprofen Depression/anxiety - Continue home duloxetine - Continue home BuSpar - Continue home hydroxyzine DVT prophylaxis - Continue enoxaparin CODE STATUS - Full code Medications at Discharge Home Medications amlodipine 5 [...] capsule,delayed release 30 mg PO QHS 02/15/25 Medical Records Data Homelessness:: Unsheltered Weight / BMI Weight Weight: 110.3 kg Body Mass Index (BMI) 34.8 ABG / Lab / Microbiology Data 04/21/25 04:14 04/22/25 06:58 Laboratory: Laboratory Results - last 24 hr 04/22/25 06:58: Sodium 138, Potassium 4.1, Chloride 102, Carbon Dioxide 25.3, Anion Gap 11, BUN 6, Creatinine 0.79, Estim Creat Clear Calc 129.37, Est GFR (MDRD) Non-Af 104, BUN/Creatinine Ratio 8.2 L, Glucose 104 H, Calcium 9.1, Phosphorus 3.4, Magnesium 2.1 D/C Instructions Discharge Activity: Return to Normal Activity DC O2, CPAP, BIPAP Needs Home O2 Discharge instructions: No Meaningful Use Info Meaningful Use Meaningful Use Diagnoses (Choose all that apply): None applicable Discharge Plan Admission Admit Date/Time: 04/20/25 22:25 Primary Reason for Your Visit: EtOH detox Attending Provider: Cristina Salas Primary Care Provider: Peggy Nicole Consulting Providers: Umang Arias Instructions Additional Instructions / Restrictions: 1. Please follow-up with [facility] today as already scheduled and as recommended by addiction liaison Discharge Orders/Prescriptions Prescriptions: Continued amlodipine 5 mg [...] Peggy Nicole DO [Primary Care Provider] - See Referral Note (As needed) Disposition Disposition (needs filled in before D/C Order can be placed): Home, Self Care 04/23/25 0856 <Electronically signed by Cristina Salas DO> Cosigner Signature (if applicable): CC: Dr. Peggy Nicole DO; Dr. Cristina Salas DO~ Signed [facility] Work Phone: 1(187) 325-805208-05-2025 Discharge summary [facility] Medical Records Department [address] [place] [address] Discharge Summary 04/23/25 0740 MR#: [id number] Acct: [id number] Name: SLOAN HARVEY Rep #:[id number] : 1970 55 From: Cristina Salas DO PCP: Dr. Peggy Nicole DO Status:ADM IN Location: [place] [id number] Providers Date of Admission: 04/20/25 Primary Care Physician: Dr. Peggy Nicole DO Reason For Visit: ETOH DETOX Diagnosis Discharge Diagnosis (1) Alcohol abuse: Status: Acute Code(s): F10.10 - Alcohol abuse, uncomplicated (2) Desire for detoxification: Status: Acute Plan Alcohol abuse with pending withdrawal - Patient has been sober previously but went back to his living environment thatwas not appropriateand relapsed - Currently homeless but does have plans for discharge - Continue phenobarbital taper - Continue thiamine and folate - Continue as needed medication for symptom management associated withdrawal - 180 consultation for assistance with outpatient follow-up - Social work/case management following - Anticipate discharge tomorrow Homelessness - Social work/case management consult for assistance Hypokalemia - Resolved History of polysubstance abuse - Alcohol, methamphetamines, cannabis - Recommend cessation of all substances History of alcohol hepatitis - LFTs not markedly elevated at this time Essential hypertension - Continue home amlodipine Osteoarthritis -continue home ibuprofen Depression/anxiety - Continue home duloxetine - Continue home BuSpar - Continue home hydroxyzine DVT prophylaxis - Continue enoxaparin CODE STATUS - Full code Medications at Discharge Home Medications amlodipine 5 [...] capsule,delayed release 30 mg PO QHS 02/15/25 Medical Records Data Homelessness:: Unsheltered Weight / BMI Weight Weight: 110.3 kg Body Mass Index (BMI) 34.8 ABG / Lab / Microbiology Data 04/21/25 04:14 04/22/25 06:58 Laboratory: Laboratory Results - last 24 hr 04/22/25 06:58: Sodium 138, Potassium 4.1, Chloride 102, Carbon Dioxide 25.3, Anion Gap 11, BUN 6, Creatinine 0.79, Estim Creat Clear Calc 129.37, Est GFR (MDRD) Non-Af 104, BUN/Creatinine Ratio 8.2 L, Glucose 104 H, Calcium 9.1, Phosphorus 3.4, Magnesium 2.1 D/C Instructions Discharge Activity: Return to Normal Activity DC O2, CPAP, BIPAP Needs Home O2 Discharge instructions: No Meaningful Use Info Meaningful Use Meaningful Use Diagnoses (Choose all that apply): None applicable Discharge Plan Admission Admit Date/Time: 04/20/25 22:25 Primary Reason for Your Visit: EtOH detox Attending Provider: Cristina Salas Primary Care Provider: Peggy Nicole Consulting Providers: Umang Arias Instructions Additional Instructions / Restrictions: 1. Please follow-up with 180 today as already scheduled and as recommended by addiction liaison Discharge Orders/Prescriptions Prescriptions: Continued amlodipine 5 mg [...] Peggy Nicole DO [Primary Care Provider] - See Referral Note (As needed) Disposition Disposition (needs filled in before D/C Order can be placed): Home, Self Care 04/23/25 0856 Cosigner Signature (if applicable): CC: Dr. Peggy Nicole DO; Dr. Cristina Salas DO~ Signed [facility]08-05-2025 [facility] Medical Records Department [address] [place] [address] Discharge Summary 04/23/25 0740 MR#: [id number] Acct: [id number] Name: SLOAN HARVEY Rep #: [id number] : 1970 55 From: Cristina Salas DO PCP: Dr. Peggy Nicole DO Status:[facility]M [id number] Prov[facility] Date of Admission: 04/20/25 Primary Care Physician: Dr. Peggy Nicole DO Reason For Visit: ETOH DETOX Diagnosis Discharge Diagnosis (1) Alcohol abuse: Status: Acute Code(s): F10.10 - Alcohol abuse, uncomplicated (2) Desire for detoxification: Status: Acute Plan Alcohol abuse with pending withdrawal - Patient has been sober previously but went back to his living environment that was not appropriate and relapsed - Currently homeless but does have plans for discharge - Continue phenobarbital taper - Continue thiamine and folate - Continue as needed medication for symptom management associated withdrawal - 180 consultation for assistance with outpatient follow-up - Social work/case management following - Anticipate discharge tomorrow Homelessness - Social work/case management consult for assistance Hypokalemia - Resolved History of polysubstance abuse - Alcohol, methamphetamines, cannabis - Recommend cessation of all substances History of alcohol hepatitis - LFTs not markedly elevated at this time Essential hypertension - Continue home amlodipine Osteoarthritis -continue home ibuprofen Depression/anxiety - Continue home duloxetine - Continue home BuSpar - Continue home hydroxyzine DVT prophylaxis - Continue enoxaparin CODE STATUS - Full code Medications at Discharge Home Medications amlodipine 5 [...] capsule,delayed release 30 mg PO QHS 02/15/25 Medical Records Data Homelessness:: Unsheltered Weight / BMI Weight Weight: 110.3 kg Body Mass Index (BMI) 34.8 ABG / Lab / Microbiology Data 04/21/25 04:14 04/22/25 06:58 Laboratory: Laboratory Results - last 24 hr 04/22/25 06:58: Sodium 138, Potassium 4.1, Chloride 102, Carbon Dioxide 25.3, Anion Gap 11, BUN 6, Creatinine 0.79, Estim Creat Clear Calc 129.37, Est GFR (MDRD) Non-Af 104, BUN/Creatinine Ratio 8.2 L, Glucose 104 H, Calcium 9.1, Phosphorus 3.4, Magnesium 2.1 D/C Instructions Discharge Activity: Return to Normal Activity DC O2, CPAP, BIPAP Needs Home O2 Discharge instructions: No Meaningful Use Info Meaningful Use Meaningful Use Diagnoses (Choose all that apply): None applicable Discharge Plan Admission Admit Date/Time: 04/20/25 22:25 Primary Reason for Your Visit: EtOH detox Attending Provider: Cristina Salas Primary Care Provider: Peggy Nicole Consulting Providers: Umang Arias Instructions Additional Instructions / Restrictions: 1. Please follow-up with 180 today as already scheduled and as recommended by addiction liaison Discharge Orders/Prescriptions Prescriptions: Continued amlodipine 5 mg [...] Peggy Nicole DO [Primary Care Provider] - See Referral Note (As needed) Disposition Disposition (needs filled in before D/C Order can be placed): Home, Self Care 04/23/25 0856 Cosigner Signature (if applicable): CC: Dr. Peggy Nicole DO; [facility]. Cristina [facility]as [facility] Progress note Author Cristina Salas [facility] Note Date/Time April 22, 2025 2:5 8pm [facility] Medical Records Department [address] [place] [address] Progress Note - Hospitalist 04/22/25 1456 MR#: [id number] Acct: [id number] Name: SLOAN HARVEY Rep #:[id number] : 1970 55 From: Cristina Salas DO PCP: Dr. Peggy Nicole DO Status:ADM IN Location: [place] [id number] Reason for Visit Chief Complaint: Requesting EtOH Detox. Subjective Subjective Patient states overall he is feeling much better. Has an appointment tomorrow at [facility] for prescriptions. I do feel he will be medically stable by that point in time so we will plan for discharge tomorrow morning as long as nothing changes. Objective Data Objective Data Vital Signs: Vital Signs Temp Pulse Resp BP Pulse Ox O2 Del Method 98.3 F 69 16 109/69 95 Room Air 04/22/25 11:43 04/22/25 11:43 04/22/25 11:43 04/22/25 11:43 04/22/25 11:43 04/22/25 14:09 Oxygen Delivery Method Room Air Weight: 109.5 kg Body Mass Index (BMI) 34.5 Intake & Output: Intake and Output for Last 24 Hours 04/20/25 04/21/25 04/22/25 23:59 23:59 23:59 Intake Total 3650 / 3850 800 / 800 Balance 3650 / 3850 800 / 800 Lab / Micro Data 04/21/25 04:14 04/22/25 06:58 Labs: Laboratory Results - last 24 hr 04/22/25 06:58: Sodium 138, Potassium 4.1, Chloride 102, Carbon Dioxide 25.3, Anion Gap 11, BUN 6, Creatinine 0.79, Estim Creat Clear Calc 129.37, Est GFR (MDRD) Non-Af 104, BUN/Creatinine Ratio 8.2 L, Glucose 104 H, Calcium 9.1, Phosphorus 3.4, Magnesium 2.1 Physical Exam Const alert, oriented x3, no apparent distress and well nourished Constitutional Narrative: Obese, middle-aged, white male, lying in bed sleeping but awakens easily, appears comfortable, nontoxic, interacts appropriately General Appearance: cooperative HEENT normocephalic, head/scalp atraumatic and hearing grossly normal bilaterally GI GI Narrative: Obese. Neuro moves all extremities and no focal motor deficits Speech: speech normal Psych affect normal Psych Narrative: Very pleasant, interacts appropriately Assessment & Plan Assessment/Plan (1) Alcohol abuse: (2) Desire for detoxification: PLAN: Plan Alcohol abuse with pending withdrawal - Patient has been sober previously but went back to his living environment thatwas not appropriate and relapsed - Currently homeless but does have plans for discharge - Continue phenobarbital taper - Continue thiamine and folate - Continue as needed medication for symptom management associated withdrawal - 180 consultation for assistance with outpatient follow-up - Social work/case management following - Anticipate discharge tomorrow Homelessness - Social work/case management consult for assistance Hypokalemia - Resolved History of polysubstance abuse - Alcohol, methamphetamines, cannabis - Recommend cessation of all substances History of alcohol hepatitis - LFTs not markedly elevated at this time Essential hypertension - Continue home amlodipine Osteoarthritis -continue home ibuprofen Depression/anxiety - Continue home duloxetine - Continue home BuSpar - Continue home hydroxyzine DVT prophylaxis - Continue enoxaparin CODE STATUS - Full code Charges/Coding Visit Charges Inpatient E&M: 06642 Subs Hosp L1 04/22/25 1458 <Electronically signed by Cristina Salas DO> Chanelleigner Signature (if applicable): CC: ~ Signed [facility] Work Phone: 1(191) 888-803708-04-2025 Progress note [facility] Medical Records Department [address] [place] [address] Progress Note - Hospitalist 04/22/25 145 MR#: [id number] Acct: [id number] Name: SLOAN HARVEY Rep #:[id number] : 1970 55 From: Cristina Salas DO PCP: Dr. Peggy Nicole, DO Status:ADM IN Location: [facility] MX833-3 Reason for Visit Chief Complaint: Requesting EtOH Detox. Subjective Subjective Patient states overall he is feeling much better. Has an appointment tomorrow at [facility] for prescriptions. I do feel he will be medically stable by that point in time so we will plan for discharge tomorrow morning as long as nothing changes. Objective Data Objective Data Vital Signs: Vital Signs Temp Pulse Resp BP Pulse Ox O2 Del Method 98.3 F 69 16 109/69 95 Room Air 04/22/25 11:43 04/22/25 11:43 04/22/25 11:43 04/22/25 11:43 04/22/25 11:43 04/22/25 14:09 Oxygen Delivery Method Room Air Weight: 109.5 kg Body Mass Index (BMI) 34.5 Intake & Output: Intake and Output for Last 24 Hours 04/20/25 04/21/25 04/22/25 23:59 23:59 23:59 Intake Total 3650 / 3850 800 / 800 Balance 3650 / 3850 800 / 800 Lab / Micro Data 04/21/25 04:14 04/22/25 06:58 Labs: Laboratory Results - last 24 hr 04/22/25 06:58: Sodium 138, Potassium 4.1, Chloride 102, Carbon Dioxide 25.3, Anion Gap 11, BUN 6, Creatinine 0.79, Estim Creat Clear Calc 129.37, Est GFR (MDRD) Non-Af 104, BUN/Creatinine Ratio 8.2 L, Glucose 104 H, Calcium 9.1, Phosphorus 3.4, Magnesium 2.1 Physical Exam Const alert, oriented x3, no apparent distress and well nourished Constitutional Narrative: Obese, middle-aged, white male, lying in bed sleeping but awakens easily, appears comfortable, nontoxic, interacts appropriately General Appearance: cooperative HEENT normocephalic, head/scalp atraumatic and hearing grossly normal bilaterally GI GI Narrative: Obese. Neuro moves all extremities and no focal motor deficits Speech: speech normal Psych affect normal Psych Narrative: Very pleasant, interacts appropriately Assessment & Plan Assessment/Plan (1) Alcohol abuse: (2) Desire for detoxification: PLAN: Plan Alcohol abuse with pending withdrawal - Patient has been sober previously but went back to his living environment thatwas not appropriateand relapsed - Currently homeless but does have plans for discharge - Continue phenobarbital taper - Continue thiamine and folate - Continue as needed medication for symptom management associated withdrawal - 180 consultation for assistance with outpatient follow-up - Social work/case management following - Anticipate discharge tomorrow Homelessness - Social work/case management consult for assistance Hypokalemia - Resolved History of polysubstance abuse - Alcohol, methamphetamines, cannabis - Recommend cessation of all substances History of alcohol hepatitis - LFTs not markedly elevated at this time Essential hypertension - Continue home amlodipine Osteoarthritis -continue home ibuprofen Depression/anxiety - Continue home duloxetine - Continue home BuSpar - Continue home hydroxyzine DVT prophylaxis - Continue enoxaparin CODE STATUS - Full code Charges/Coding Visit Charges Inpatient E&M: 56694 Subs Hosp L1 04/22/25 1458 Cosigner Signature (if applicable): CC: ~ Signed [facility]08-03-2025 Progress note Author Cristina Salas [facility] Note Date/Time April 21, 2025 3:0 2pm [facility] Medical Records Department [address] [place] [address] Progress Note - Hospitalist 04/21/25 0723 MR#: [id number] Acct: [id number] Name: SLOAN HARVEY Rep #:[id number] : 1970 55 From: Cristina Salas DO PCP: Dr. Peggy Nicole DO Status:ADM IN Location: [place] [id number] Reason for Visit Chief Complaint: Requesting EtOH Detox. Subjective Subjective Patient states he is feeling okay. Just a bit anxious. No specific complaints at this time. States he was homeless prior to presentation. Had gone through detox previously and ended up back in the living environment where people were using so he started drinking again. He does realize the importance to get into a better living environment. He states that he does have family that are willing to accept him temporarily until he can get housing situated but wants togo through detox before going there. I did discuss with him that we have case management social work talk to him tomorrow to help with resources and 180 wouldsee him tomorrow to help reestablish outpatient programming. Objective Data Objective Data Vital Signs: Vital Signs Temp Pulse Resp BP Pulse Ox O2 Del Method 97.6 F L 86 18 144/97 H 94 Room Air 04/21/25 03:58 04/21/25 03:58 04/21/25 03:58 04/21/25 03:58 04/21/25 03:58 04/21/25 03:58 Oxygen Delivery Method Room Air Weight: 112.3 kg Body Mass Index (BMI) 35.4 Intake & Output: Intake and Output for Last 24 Hours 04/19/25 04/20/25 04/21/25 23:59 23:59 23:59 Intake Total 300 / 300 Balance 300 / 300 Lab / Micro Data 04/21/25 04:14 04/21/25 04:14 Labs: Laboratory Results - last 24 hr 04/20/25 21:27: WBC 10.0, RBC 4.83, Hgb 14.9, Hct 43.5, MCV 90.1, MCH 30.8, MCHC34.3, RDW Std Deviation 42.0, RDW Coeff of Jacy 12.7, Plt Count 249, MPV 9.0, Immature Gran % (Auto) 0.400, Neut % (Auto) 63.0, Lymph % (Auto) 20.1, Becker % (Auto) 6.3, Eos % (Auto) 8.9 H, Baso % (Auto) 1.3 H, Absolute Neuts (auto) 6.3, Absolute Lymphs (auto) 2.01, Nucleated RBC % 0, Sodium 139, Potassium 3.6, Chloride 99, Carbon Dioxide 25.6, Anion Gap 15, BUN 10, Creatinine 1.07, Estim Creat Clear Calc 96.71, Est GFR (MDRD) Non-Af 81, BUN/Creatinine Ratio 9.5 L, Glucose 117 H, Calcium 9.5, Magnesium 1.9, Total Bilirubin 0.80, AST 117 H, ALT 99 H, Alkaline Phosphatase 130 H, Total Protein 7.7, Albumin 4.5, Globulin 3.2, Albumin/Globulin Ratio 1.4, Ethyl Alcohol 124.0 H 04/20/25 23:38: Urine Opiates Screen NEGATIVE, U Buprenorphine Qual NEGATIVE, UrOxycodone Screen NEGATIVE, Urine Methadone Screen NEGATIVE, Urine Fentanyl Screen NEGATIVE, Ur Barbiturates Screen NEGATIVE, Ur Phencyclidine Scrn NEGATIVE, Ur Amphetamines Screen NEGATIVE, U Benzodiazepines Scrn NEGATIVE, Urine Cocaine Screen NEGATIVE, U Cannabinoids Screen NEGATIVE 04/21/25 04:14: WBC 6.8, RBC 4.45 L, Hgb 13.8, Hct 40.2, MCV 90.3, MCH 31.0, MCHC 34.3, RDW Std Deviation 41.6, RDW Coeff of Jacy 12.6, Plt Count 207, MPV 9.1, Immature Gran % (Auto) 0.400, Neut % (Auto) 59.2, Lymph % (Auto) 23.3, Becker% (Auto) 7.0, Eos % (Auto) 9.2 H, Baso % (Auto) 0.9, Absolute Neuts (auto) 4.0, Absolute Lymphs (auto) 1.57, Nucleated RBC % 0, PT 14.2, INR 1.1, Sodium 138, Potassium 3.2 L, Chloride 104, Carbon Dioxide 21.0, Anion Gap 13, BUN 9, Creatinine 0.73, Estim Creat Clear Calc 141.79, Est GFR (MDRD) Non-Af 107, BUN/Creatinine Ratio 12.2, Glucose 97, Calcium 8.8, Phosphorus 4.5, Total Bilirubin 0.73, AST 96 H, ALT 84 H, Alkaline Phosphatase 124, Total Protein 6.5,Albumin 3.8, Globulin 2.7, Albumin/Globulin Ratio 1.4, TSH 4.140 Physical Exam Const alert, oriented x3, no apparent distress and well nourished Constitutional Narrative: Obese, middle-aged, white male, very pleasant, sitting up eating breakfast, nontoxic-appearing, looks comfortable HEENT head/scalp atraumatic and moist oral mucous membranes Head and Scalp: normocephalic Neuro moves all extremities and no focal motor deficits Speech: speech normal Psych affect normal Psych Narrative: Very pleasant, interacts appropriately Assessment & Plan Assessment/Plan (1) Alcohol abuse: (2) Desire for detoxification: PLAN: Plan Alcohol abuse with pending withdrawal - Patient has been sober previously but went back to his living environment thatwas not appropriate and relapsed - Currently homeless but does have plans for discharge - Continue phenobarbital taper - Continue thiamine and folate - Continue as needed medication for symptom management associated withdrawal - 180 consultation for assistance with outpatient follow-up - Social work/case management consult Homelessness - Social work/case management consult for assistance Hypokalemia - P.o. replacement For recheck in a.m. Open check a magnesium level History of polysubstance abuse - Alcohol, methamphetamines, cannabis - Recommend cessation of all substances History of alcohol hepatitis - LFTs not markedly elevated at this time Essential hypertension - Continue home amlodipine Osteoarthritis -continue home ibuprofen Depression/anxiety - Continue home duloxetine - Continue home BuSpar - Continue home hydroxyzine DVT prophylaxis - Continue enoxaparin CODE STATUS - Full code Charges/Coding Visit Charges Inpatient E&M: 30687 Subs Hosp L1 04/21/25 1502 <Electronically signed by Cristina Salas DO> Cosigner Signature (if applicable): CC: ~ Signed [facility] Work Phone: [phone]) 743-827508-03-2025 Progress note [facility] Medical Records Department [address] [place] [address] Progress Note - Hospitalist 04/21/25 0723 MR#: [id number] Acct: [id number] Name: SLOAN HARVEY Rep #:[id number] : 1970 55 From: Cristina Salas DO PCP: Dr. Peggy Nicole DO Status:ADM IN Location: [place] [id number] Reason for Visit Chief Complaint: Requesting EtOH Detox. Subjective Subjective Patient states he is feeling okay. Just a bit anxious. No specific complaints at this time. States he was homeless prior to presentation. Had gone through detox previously and ended up back in the living environment where people were using so he started drinking again. He does realize the importance to get into a better living environment. He states that he does have family that are willing to accept him temporarily until he can get housing situated but wants togo through detox before going there. I did discuss with him that we have case management social work talk to him tomorrow to help with resources and 180 wouldsee him tomorrow to help reestablish outpatient programming. Objective Data Objective Data Vital Signs: Vital Signs Temp Pulse Resp BP Pulse Ox O2 Del Method 97.6 F L 86 18 144/97 H 94 Room Air 04/21/25 03:58 04/21/25 03:58 04/21/25 03:58 04/21/25 03:58 04/21/25 03:58 04/21/25 03:58 Oxygen Delivery Method Room Air Weight: 112.3 kg Body Mass Index (BMI) 35.4 Intake & Output: Intake and Output for Last 24 Hours 04/19/25 04/20/25 04/21/25 23:59 23:59 23:59 Intake Total 300 / 300 Balance 300 / 300 Lab / Micro Data 04/21/25 04:14 04/21/25 04:14 Labs: Laboratory Results - last 24 hr 04/20/25 21:27: WBC 10.0, RBC 4.83, Hgb 14.9, Hct 43.5, MCV 90.1, MCH 30.8, MCHC34.3, RDW Std Deviation 42.0, RDW Coeff of Jacy 12.7, Plt Count 249, MPV 9.0, Immature Gran % (Auto) 0.400, Neut % (Auto) 63.0, Lymph % (Auto) 20.1, Becker % (Auto) 6.3, Eos % (Auto) 8.9 H, Baso % (Auto) 1.3 H, Absolute Neuts (auto) 6.3, Absolute Lymphs (auto) 2.01, Nucleated RBC % 0, Sodium 139, Potassium 3.6, Chloride 99, Carbon Dioxide 25.6, Anion Gap 15, BUN 10, Creatinine 1.07, Estim Creat Clear Calc 96.71, Est GFR (MDRD) Non-Af 81, BUN/Creatinine Ratio 9.5 L, Glucose 117 H, Calcium 9.5, Magnesium 1.9, Total Bilirubin 0.80, AST 117 H, ALT 99 H, Alkaline Phosphatase 130 H, Total Protein 7.7, Albumin 4.5, Globulin 3.2, Albumin/Globulin Ratio 1.4, Ethyl Alcohol 124.0 H 04/20/25 23:38: Urine Opiates Screen NEGATIVE, U Buprenorphine Qual NEGATIVE, UrOxycodone Screen NEGATIVE, Urine Methadone Screen NEGATIVE, Urine Fentanyl Screen NEGATIVE, Ur Barbiturates Screen NEGATIVE, Ur Phencyclidine Scrn NEGATIVE, Ur Amphetamines Screen NEGATIVE, U Benzodiazepines Scrn NEGATIVE, Urine Cocaine Screen NEGATIVE, U Cannabinoids Screen NEGATIVE 04/21/25 04:14: WBC 6.8, RBC 4.45 L, Hgb 13.8, Hct 40.2, MCV 90.3, MCH 31.0, MCHC 34.3, RDW Std Deviation 41.6, RDW Coeff of Jacy 12.6, Plt Count 207, MPV 9.1, Immature Gran % (Auto) 0.400, Neut % (Auto) 59.2, Lymph % (Auto) 23.3, Becker% (Auto) 7.0, Eos % (Auto) 9.2 H, Baso % (Auto) 0.9, Absolute Neuts (auto) 4.0, Absolute Lymphs (auto) 1.57, Nucleated RBC % 0, PT 14.2, INR 1.1, Sodium 138, Potassium 3.2 L, Chloride 104, Carbon Dioxide 21.0, Anion Gap 13, BUN 9, Creatinine 0.73, Estim Creat ClearCalc 141.79, Est GFR (MDRD) Non-Af 107, BUN/Creatinine Ratio 12.2, Glucose 97, Calcium 8.8, Phosphorus 4.5, Total Bilirubin 0.73, AST 96 H, ALT 84 H, Alkaline Phosphatase 124, Total Protein 6.5,Albumin 3.8, Globulin 2.7, Albumin/Globulin Ratio 1.4, TSH 4.140 Physical Exam Const alert, oriented x3, no apparent distress and well nourished Constitutional Narrative: Obese, middle-aged, white male, very pleasant, sitting up eating breakfast, nontoxic-appearing, looks comfortable HEENT head/scalp atraumatic and moist oral mucous membranes Head and Scalp: normocephalic Neuro moves all extremities and no focal motor deficits Speech: speech normal Psych affect normal Psych Narrative: Very pleasant, interacts appropriately Assessment & Plan Assessment/Plan (1) Alcohol abuse: (2) Desire for detoxification: PLAN: Plan Alcohol abuse with pending withdrawal - Patient has been sober previously but went back to his living environment thatwas not appropriateand relapsed - Currently homeless but does have plans for discharge - Continue phenobarbital taper - Continue thiamine and folate - Continue as needed medication for symptom management associated withdrawal - 180 consultation for assistance with outpatient follow-up - Social work/case management consult Homelessness - Social work/case management consult for assistance Hypokalemia - P.o. replacement For recheck in a.m. Open check a magnesium level History of polysubstance abuse - Alcohol, methamphetamines, cannabis - Recommend cessation of all substances History of alcohol hepatitis - LFTs not markedly elevated at this time Essential hypertension - Continue home amlodipine Osteoarthritis -continue home ibuprofen Depression/anxiety - Continue home duloxetine - Continue home BuSpar - Continue home hydroxyzine DVT prophylaxis - Continue enoxaparin CODE STATUS - Full code Charges/Coding Visit Charges Inpatient E&M: 43784 Subs Hosp L1 04/21/25 1502 Cosigner Signature (if applicable): CC: ~ Signed [facility]08-03-2025 History and physical note Author Umang Mckoy [facility] Note Date/Time April 21, 2025 5:5 9am [facility] Medical Records Department [address] [place] [address] H&P Exam - Hospitalist 04/20/256 MR#: [id number] Acct: [id number] Name: SLOAN HARVEY Rep #:[id number] : 1970 55 From: Umang Krishnan DO PCP: Dr. Peggy Nicole DO Status:ADM IN Location: [facility] [place] [id number] HPI - General General Date of Admission: 04/20/25 Date of Service: 04/20/25 Chief Complaint: Requesting EtOH Detox. HPI Narrative SLOAN HARVEY, is a 55 M with a past medical history of essential hypertension;on amlodipine, obesity (class II); with BMI of 35.5 this admission, depression with anxiety; on duloxetine twice daily and buspirone 3 times daily plus hydroxyzine as needed 3 times daily, OA; on ibuprofen 3 times daily as needed, tobacco abuse, history of alcoholic hepatitis and chronic polysubstance abuse with EtOH, history of amphetamine abuse via smoking and cannabis with recent admission here from February 15, 2025 to February 18, 2025 for treatment of EtOH detox whore-presents to [facility] ER once again requesting EtOH detox. Mr. Pham reports chronically drinking 1-2/5 of vodka per day over the past 5years punctuated by brief periods of sobriety. He also admits to cannabis abuse. He typically experiences withdrawal symptoms pursing in the morning including shakiness, anxiety, nausea and occasionally has hallucinations but hislast drink was this evening with no current symptoms of withdrawal. In the ER he was noted to have a EMMIE of 124 mg/dL complicated by Transaminitis; with AST 117 units/L, ALT of 99 units/L and alkaline phosphatase of 130 units/L likely due to EtOH Hepatitis in the setting of chronic and recalcitrant EtOH abuse and he was then admitted to the general medical floor for treatment under the EtOH withdrawal protocol for stay that is expected to extend beyond 2 midnights. [facility] Medical History Polysubstance abuse Anxiety Depression Hypertension Home Medications ?Medication ?Instructions [...] / Time No Known Allergies Allergy Verified 04/20/25 21:05 Family History Other Alcoholism Social History Smoking Status: Current every day smoker tobacco type: cigarettes Smokeless tobacco user: other substance use type: marijuana and amphetamines ROS ROS Narrative Review of Systems: Constitutional: Patient denies fever or chills. Eyes: Patient denies change in vision or discharge from eyes. ENT: Patient denies runny nose, sore throat or ear pain. Resp: Patient denies shortness of breath or cough. CV: Patient denies chest pain, palpitations, heart racing or lower extremity edema. GI: Patient denies abdominal pain, nausea, vomiting, diarrhea or constipation. : Patient denies dysuria or hematuria. MSK: Patient denies arthralgias or myalgias. Skin: Patient denies rash, abscess, wounds or jaundice. Psych: Patient denies symptoms of uncontrolled depression or anxiety. Neuro: Patient denies headache, paresthesias or focal neurologic deficits. Allergy: Patient denies lip swelling, tongue swelling or urticaria. Hematology: Patient denies easy bleeding or easy bruisability. Endocrinology: Patient denies polyuria, polydipsia, polyphagia or heat/cold intolerance. 14 point ROS otherwise negative except for positives noted above in HPI. Vital Signs Vital Signs Vital Signs: 04/20/25 21:04 Temperature 97.4 F L Temperature Source Temporal Pulse Rate 83 Respiratory Rate 20 H Blood Pressure 120/88 H Blood Pressure Mean 98 Pulse Ox 95 Oxygen Delivery Method Room Air Weight Weight: 247 lb 7 oz Body Mass Index (BMI) 35.4 Physical Exam Const alert, oriented x3 and no apparent distress Constitutional Narrative: Obese and intoxicated. General Appearance: cooperative HEENT normocephalic, head/scalp atraumatic, hearing grossly normal bilaterally and moist oral mucous membranes Eyes PERRL, EOMs intact bilaterally and conjunctivae normal Neck no lymphadenopathy, supple and no JVD Resp normal respiratory effort, no retractions, no use of accessory muscles and clearto auscultation bilaterally Cardio regular rate and regular rhythm GI normal to inspection, nondistended, normoactive bowel sounds, soft to palpation,non-tender and non-distended GI Narrative: Obese. Extremity normal to inspection, full ROM and no clubbing, cyanosis or edema Skin Skin Narrative: Patient has evidence of rash, abscess, wounds or jaundice. Neuro oriented x3, CN's II-XII intact bilaterally, moves all extremities and no focal motor deficits Sensorium / Orientation: awake, alert, oriented to person, oriented to place andoriented to time Speech: speech normal Psych affect normal Results Medical Records Data Attestation: I reviewed the patient's medical records Lab / Micro Data Attestation: I reviewed the patient's lab results. 04/20/25 21:27 04/20/25 21:27 Labs: Laboratory Results - last 24 hr 04/20/25 21:27: WBC 10.0, RBC 4.83, Hgb 14.9, Hct 43.5, MCV 90.1, MCH 30.8, MCHC34.3, RDW Std Deviation 42.0, RDW Coeff of Jacy 12.7, Plt Count 249, MPV 9.0, Immature Gran % (Auto) 0.400, Neut % (Auto) 63.0, Lymph % (Auto) 20.1, Becker % (Auto) 6.3, Eos % (Auto) 8.9 H, Baso % (Auto) 1.3 H, Absolute Neuts (auto) 6.3, Absolute Lymphs (auto) 2.01, Nucleated RBC % 0, Sodium 139, Potassium 3.6, Chloride 99, Carbon Dioxide 25.6, Anion Gap 15, BUN 10, Creatinine 1.07, Estim Creat Clear Calc 96.71, Est GFR (MDRD) Non-Af 81, BUN/Creatinine Ratio 9.5 L, Glucose 117 H, Calcium 9.5, Total Bilirubin 0.80, AST 117 H, ALT 99 H, Alkaline Phosphatase 130 H, Total Protein 7.7, Albumin 4.5, Globulin 3.2, Albumin/Globulin Ratio 1.4, Ethyl Alcohol 124.0 H Assessment & Plan Assessment/Plan (1) Alcohol intoxication: QUALIFIERS: Complication of substance-induced condition: uncomplicated Qualified Code(s): F10.920 - Alcohol use, unspecified with intoxication, uncomplicated (2) Alcohol abuse: (3) Desire for detoxification: (4) Alcoholic hepatitis: QUALIFIERS: Ascites presence: without ascites Qualified Code(s): K70.10 - Alcoholic hepatitis without ascites (5) Transaminitis: (6) Tobacco abuse: (7) Obesity (BMI 30-39.9): (8) Depression with anxiety: PLAN: Plan 1. Acute EtOH intoxication in the setting of chronic EtOH abuse with request for EtOH detox with laboratory evidence of Transaminitis likely due to EtOH Hepatitis - Admit to general medical floor for treatment under the EtOH detoxification protocol primarily consisting of phenobarbital taper. Patient isintoxicated and not having symptoms of withdrawal at this time. EtOH Cessation will be strongly encouraged. Give ondansetron as needed for nausea vomiting. Give ibuprofen as needed for pain or fever. 2. History of alcoholic hepatitis and chronic polysubstance abuse with EtOH, smoking methamphetamines and cannabis with recent admissions here from February 15, 2025 to February 18, 2025 for treatment of EtOH detox complicating #1 - Noted with evolving ominous pattern of serial readmission for chronic EtOH abuse pointing to the seeming limited effective of this approach to managing addiction for thisparticular patient. 3. Tobacco Abuse compounding #1 & #2 - Tobacco Cessation will be strongly encouraged with Nicotine patch offered to control cravings. 4. Obesity (class II); with BMI of 35.5 this admission adding to the burden of disease outlined from #1 - #3 - Weight loss will be recommended. Check TSH. This complicates his case and may hamper recovery. 5. Depression with anxiety; on duloxetine twice daily and buspirone 3 times daily plus hydroxyzine as needed 3 times daily adding to the medical complexity of #1 - #4 - Maintain present therapy. 6. Essential hypertension; on amlodipine - Resume amlodipine as before. 7. OA; on ibuprofen 3 times daily as needed - Continue prn ibuprofen as noted in #1. 8. DVT prophylaxis - Enoxaparin 40 mg sq daily plus up ad janeth. Total time: Approximately (but not less than) 75 minutes. Charges/Coding Visit Charges Inpatient E&M: 90054 Init Hosp L3 04/21/25 0559 <Electronically signed by Umang Arias DO> Cosigner Signature (if applicable): CC: Dr. Peggy Nicole DO; Dr. Umang Arias DO~ Signed [facility] Work Phone: 1(697) 770-159808-03-2025 History and physical note [facility] Medical Records Department [address] [place] [address] H&P Exam - Hospitalist 04/20/252205 MR#: [id number] Acct: [id number] Name: SLOAN HARVEY Rep #:[id number] : 1970 55 From: Umang Krishnan DO PCP: Dr. Peggy Nicole DO Status:ADM IN Location: [facility] [place] HW185-4 HPI - General General Date of Admission: 04/20/25 Date of Service: 04/20/25 Chief Complaint: Requesting EtOH Detox. HPI Narrative SLOAN HARVEY, is a 55 M with a past medical history of essential hypertension;on amlodipine, obesity (class II); with BMI of 35.5 this admission, depression with anxiety; on duloxetine twice daily and buspirone 3 times daily plus hydroxyzine as needed 3 times daily, OA; on ibuprofen 3 times dailyas needed, tobacco abuse, history of alcoholic hepatitis and chronic polysubstance abuse with EtOH,history of amphetamine abuse via smoking and cannabis with recent admission here from February 15, 2025 to February 18, 2025 for treatment of EtOH detox whore-presents to [facility] ER once again requesting EtOH detox. Mr. Pham reports chronically drinking 1-2/5 of vodka per day over the past 5years punctuated bybrief periods of sobriety. He also admits to cannabis abuse. He typically experiences withdrawal symptoms pursing in the morning including shakiness, anxiety, nausea and occasionally has hallucinations but hislast drink was this evening with no current symptoms of withdrawal. In the ER he was noted to have a EMMIE of 124 mg/dL complicated by Transaminitis; with AST 117 units/L, ALT of 99 units/L and alkaline phosphatase of 130 units/L likely due to EtOH Hepatitis in the setting of chronic and recalcitrant EtOH abuse and he was then admitted to the general medical floor for treatment under the EtOH withdrawal protocol for stay that is expected to extend beyond 2 midnights. [facility]LY [facility] Medical History Polysubstance abuse Anxiety Depression Hypertension Home Medications ?Medication ?Instructions [...] / Time No Known Allergies Allergy Verified 04/20/25 21:05 Family History Other Alcoholism Social History Smoking Status: Current every day smoker tobacco type: cigarettes Smokeless tobacco user: other substance use type: marijuana and amphetamines ROS ROS Narrative Review of Systems: Constitutional: Patient denies fever or chills. Eyes: Patient denies change in vision or discharge from eyes. ENT: Patient denies runny nose, sore throat or ear pain. Resp: Patient denies shortness of breath or cough. CV: Patient denies chest pain, palpitations, heart racing or lower extremity edema. GI: Patient denies abdominal pain, nausea, vomiting, diarrhea or constipation. : Patient denies dysuria or hematuria. MSK: Patient denies arthralgias or myalgias. Skin: Patient denies rash, abscess, wounds or jaundice. Psych: Patient denies symptoms of uncontrolled depression or anxiety. Neuro: Patient denies headache, paresthesias or focal neurologic deficits. Allergy: Patient denies lip swelling, tongue swelling or urticaria. Hematology: Patient denies easy bleeding or easy bruisability. Endocrinology: Patient denies polyuria, polydipsia, polyphagia or heat/cold intolerance. 14 point ROS otherwise negative except for positives noted above in HPI. Vital Signs Vital Signs Vital Signs: 04/20/25 21:04 Temperature 97.4 F L Temperature Source Temporal Pulse Rate 83 Respiratory Rate 20 H Blood Pressure 120/88 H Blood Pressure Mean 98 Pulse Ox 95 Oxygen Delivery Method Room Air Weight Weight: 247 lb 7 oz Body Mass Index (BMI) 35.4 Physical Exam Const alert, oriented x3 and no apparent distress Constitutional Narrative: Obese and intoxicated. General Appearance: cooperative HEENT normocephalic, head/scalp atraumatic, hearing grossly normal bilaterally and moist oral mucous membranes Eyes PERRL, EOMs intact bilaterally and conjunctivae normal Neck no lymphadenopathy, supple and no JVD Resp normal respiratory effort, no retractions, no use of accessory muscles and clearto auscultation bilaterally Cardio regular rate and regular rhythm GI normal to inspection, nondistended, normoactive bowel sounds, soft to palpation,non-tender and non-distended GI Narrative: Obese. Extremity normal to inspection, full ROM and no clubbing, cyanosis or edema Skin Skin Narrative: Patient has evidence of rash, abscess, wounds or jaundice. Neuro oriented x3, CN's II-XII intact bilaterally, moves all extremities and no focal motor deficits Sensorium / Orientation: awake, alert, oriented to person, oriented to place andoriented to time Speech: speech normal Psych affect normal Results Medical Records Data Attestation: I reviewed the patient's medical records Lab / Micro Data Attestation: I reviewed the patient's lab results. 04/20/25 21:27 04/20/25 21:27 Labs: Laboratory Results - last 24 hr 04/20/25 21:27: WBC 10.0, RBC 4.83, Hgb 14.9, Hct 43.5, MCV 90.1, MCH 30.8, MCHC34.3, RDW Std Deviation 42.0, RDW Coeff of Jacy 12.7, Plt Count 249, MPV 9.0, Immature Gran % (Auto) 0.400, Neut % (Auto) 63.0, Lymph % (Auto) 20.1, Becker % (Auto) 6.3, Eos % (Auto) 8.9 H, Baso % (Auto) 1.3 H, Absolute Neuts (auto) 6.3, Absolute Lymphs (auto) 2.01, Nucleated RBC % 0, Sodium 139, Potassium 3.6, Chloride 99, Carbon Dioxide 25.6, Anion Gap 15, BUN 10, Creatinine 1.07, Estim Creat Clear Calc 96.71, Est GFR (MDRD) Non-Af 81, BUN/Creatinine Ratio 9.5 L, Glucose 117 H, Calcium 9.5, Total Bilirubin 0.80, AST 117 H, ALT 99 H, Alkaline Phosphatase 130 H, Total Protein 7.7, Albumin 4.5, Globulin 3.2, Albumin/ Globulin Ratio 1.4, Ethyl Alcohol 124.0 H Assessment & Plan Assessment/Plan (1) Alcohol intoxication: QUALIFIERS: Complication of substance-induced condition: uncomplicated Qualified Code(s): F10.920 -Alcohol use, unspecified with intoxication, uncomplicated (2) Alcohol abuse: (3) Desire for detoxification: (4) Alcoholic hepatitis: QUALIFIERS: Ascites presence: without ascites Qualified Code(s): K70.10 - Alcoholic hepatitis without ascites (5) Transaminitis: (6) Tobacco abuse: (7) Obesity (BMI 30-39.9): (8) Depression with anxiety: PLAN: Plan 1. Acute EtOH intoxication in the setting of chronic EtOH abuse with request for EtOH detox with laboratory evidence of Transaminitis likely due to EtOH Hepatitis - Admit to general medical floor fortreatment under the EtOH detoxification protocol primarily consisting of phenobarbital taper. Patient isintoxicated and not having symptoms of withdrawal at this time. EtOH Cessation will be stronglyencouraged. Give ondansetron as needed for nausea vomiting. Give ibuprofen as needed for pain or fever. 2. History of alcoholic hepatitis and chronic polysubstance abuse with EtOH, smoking methamphetamines and cannabis with recent admissions here from February 15, 2025 to February 18, 2025 for treatment of EtOH detox complicating #1 - Noted with evolving ominous pattern of serial readmission for chronic EtOH abuse pointing to the seeming limited effective of this approach to managing addiction for thisparticular patient. 3. Tobacco Abuse compounding #1 & #2 - Tobacco Cessation will be strongly encouraged with Nicotine patch offered to control cravings. 4. Obesity (class II); with BMI of 35.5 this admission adding to the burden of disease outlined from #1 - #3 - Weight loss will be recommended. Check TSH. This complicates his case and may hamper recovery. 5. Depression with anxiety; on duloxetine twice daily and buspirone 3 times daily plus hydroxyzine as needed 3 times daily adding to the medical complexity of #1 - #4 - Maintain present therapy. 6. Essential hypertension; on amlodipine - Resume amlodipine as before. 7. OA; on ibuprofen 3 times daily as needed - Continue prn ibuprofen as noted in #1. 8. DVT prophylaxis - Enoxaparin 40 mg sq daily plus up ad janeth. Total time: Approximately (but not less than) 75 minutes. Charges/Coding Visit Charges Inpatient E&M: 90807 Init Hosp L3 04/21/25 0559 Cosigner Signature (if applicable): CC: Dr. Peggy Nicole DO; Dr. Umang Arias DO~ Signed [facility]08-03-2025 Discharge summary Author Lucretia Hunter [facility] Note Date/Time April 20, 2025 10: 29pm [facility] Medical Records Department [address] [place] [address] Emergency Department Summary 04/20/25 MR#: [id number] Acct: [id number] Name: SLOAN HARVEY Rep #:[id number] : 1970 55 From: Lucretia LEE PCP: Dr. Peggy Nicole DO Status:REG ER Location: ED HPI <ROSA Araya - Last Filed: 04/20/25 21:55> History of Present Illness Chief Complaint: Substance Abuse Narrative Narrative: Patient presenting today requesting to detox from alcohol. He drinks 1-2/5 of vodka per day, he reports that over the past 5 years he has been battling alcohol abuse and has detoxed here in the past. He also reports occasional marijuana use. He denies any history of withdrawal seizure. He does typically experience withdrawal symptoms first thing in the morning including shakiness, anxiety, nausea, and occasionally has hallucinations. His last drink was this evening, he is not currently withdrawing. PFSH <ROSA Araya - Last Filed: 04/20/25 21:55> [facility] Medical History Polysubstance abuse Anxiety Depression Hypertension Home Medications ?Medication ?Instructions [...] / Time No Known Allergies Allergy Verified 04/20/25 21:05 Family History Other Alcoholism Social History Smoking Status: Current every day smoker tobacco type: cigarettes Smokeless tobacco user: other substance use type: marijuana and amphetamines ROS <ROSA Araya - Last Filed: 04/20/25 21:55> ROS ED Constitutional Constitutional ED: Denies chills or fever(s) Cardiovascular Cardiovascular: Denies chest pain Respiratory/Chest Respiratory/Chest: Denies dyspnea Gastrointestinal Gastrointestinal: Denies abdominal pain, nausea or vomiting Musculoskeletal Musculoskeletal: Denies arthralgias or myalgias Integumentary Denies rash Neurologic Neurologic: Denies weakness Psychiatric Psychiatric: Denies anxiety, depression, suicidal ideation or suicidal thoughts EXAM <ROSA Araya - Last Filed: 04/20/25 21:55> Physical Exam Const Vital Signs: 04/20/25 21:04 04/20/25 22:03 Temperature 97.4 F L 96.8 F L Temperature Source Temporal Pulse Rate 83 71 Respiratory Rate 20 H 20 H Blood Pressure 120/88 H 133/81 H Blood Pressure Mean 98 98 Pulse Ox 95 94 Oxygen Delivery Method Room Air Positive well nourished, well developed and no apparent distress General Appearance ED: well developed HEENT Reports normocephalic and head/scalp atraumatic Mouth ED: Yes moist mucous membranes normal Eyes PERRL and EOMs intact bilaterally Neck full ROM and supple Chest Wall inspection of chest normal Resp normal respiratory effort and clear to auscultation bilaterally Cardio regular rate and regular rhythm Back/Spine normal ROM and normal to inspection Extremity normal to inspection and full ROM Neuro oriented x3, moves all extremities, no focal motor deficits and no sensory deficits noted Sensorium / Orientation: awake and alert Psych mental status grossly normal and thought process normal Skin no rashes or lesions noted and no wounds <Dr. Alfa Beckham MD - Last Filed: 04/20/25 22:29> Physical Exam Const Vital Signs: 04/20/25 21:04 04/20/25 22:03 Temperature 97.4 F L 96.8 F L Temperature Source Temporal Pulse Rate 83 71 Respiratory Rate 20 H 20 H Blood Pressure 120/88 H 133/81 H Blood Pressure Mean 98 98 Pulse Ox 95 94 Oxygen Delivery Method Room Air MDM <ROSA Araya - Last Filed: 04/20/25 21:55> [facility] MDM Narrative Medical decision making narrative: Patient presenting today requesting to detox from alcohol. His last drink was this evening. He drinks about 1-2/5 of vodka per day. He does not currently feel like he is going through withdrawal. Labs will be obtained and he will be admitted to the hospital. Labs at this time are pending. I have personally performed a face to face assessment of the patient and have reviewed the RENA Note. I performed a substantive portion of the visit including all aspects of the following. My robb findings include: History is remarkable for detox approximately 16 months ago. He was sober for over a year. Began to drink. He has been consuming 1/5 of vodka per day for the past 3 months. He states 1 he awakes he has tremors palpitations sweats until he starts drinking again. He states his problem is when he is put in a home because of the multiple other clients who have personality disorders. He denies bruising easily. He denies black or maroon stool. He does smoke. He states he will do fine with the patch. There is a history of hypertension and depression. Patient states he gets himself in trouble when he goes back to work. Exam is remarkable for slight elevation in blood pressure. HEENT exam is unremarked. There is no scleral icterus. Heart is regular. Rate is normal. There is no murmur, gallop or rub. Lungs are clear to auscultation. He is alert oriented x 3. He has no obvious outward signs of withdrawal. Medical Decision Making ED addiction medicine order set was used. Will contact hospitalist for admission. Other additions or changes: [None] Lab Data Attestation: I reviewed the patient's lab results. Labs: Laboratory Results - last 24 hr 04/20/25 21:27 WBC 10.0 RBC 4.83 Hgb 14.9 Hct 43.5 MCV 90.1 MCH 30.8 MCHC 34.3 RDW Std Deviation 42.0 RDW Coeff of Jacy 12.7 Plt Count 249 MPV 9.0 Immature Gran % (Auto) 0.400 Neut % (Auto) 63.0 Lymph % (Auto) 20.1 Becker % (Auto) 6.3 Eos % (Auto) 8.9 H Baso % (Auto) 1.3 H Absolute Neuts (auto) 6.3 Absolute Lymphs (auto) 2.01 Nucleated RBC % 0 Sodium 139 Potassium 3.6 Chloride 99 Carbon Dioxide 25.6 Anion Gap 15 BUN 10 Creatinine 1.07 Estim Creat Clear Calc 96.71 Est GFR (MDRD) Non-Af 81 BUN/Creatinine Ratio 9.5 L Glucose 117 H Calcium 9.5 Total Bilirubin 0.80 AST 117 H ALT 99 H Alkaline Phosphatase 130 H Total Protein 7.7 Albumin 4.5 Globulin 3.2 Albumin/Globulin Ratio 1.4 Ethyl Alcohol 124.0 H <Dr. Alfa Beckham MD - Last Filed: 04/20/25 22:29> MDM MDM Narrative Medical decision making narrative: Patient presenting today requesting to detox from alcohol. His last drink was this evening. He drinks about 1-2/5 of vodka per day. He does not currently feel like he is going through withdrawal. Labs will be obtained and he will be admitted to the hospital. I have personally performed a face to face assessment of the patient and have reviewed the RENA Note. I performed a substantive portion of the visit including all aspects of the following. My robb findings include: History is remarkable for detox approximately 16 months ago. He was sober for over a year. Began to drink. He has been consuming 1/5 of vodka per day for the past 3 months. He states 1 he awakes he has tremors palpitations sweats until he starts drinking again. He states his problem is when he is put in a home because of the multiple other clients who have personality disorders. He denies bruising easily. He denies black or maroon stool. He does smoke. He states he will do fine with the patch. There is a history of hypertension and depression. Patient states he gets himself in trouble when he goes back to work. Exam is remarkable for slight elevation in blood pressure. HEENT exam is unremarked. There is no scleral icterus. Heart is regular. Rate is normal. There is no murmur, gallop or rub. Lungs are clear to auscultation. He is alert oriented x 3. He has no obvious outward signs of withdrawal. Medical Decision Making ED addiction medicine order set was used. Will contact hospitalist for admission. Other additions or changes: [None] Lab Data Lab results narrative: CBC is unremarkable. Competence of metabolic panel with slight elevation AST of 117 and alkaline phos of 130. Alcohol is 124. Labs: Laboratory Results - last 24 hr 04/20/25 21:27 WBC 10.0 RBC 4.83 Hgb 14.9 Hct 43.5 MCV 90.1 MCH 30.8 MCHC 34.3 RDW Std Deviation 42.0 RDW Coeff of Jacy 12.7 Plt Count 249 MPV 9.0 Immature Gran % (Auto) 0.400 Neut % (Auto) 63.0 Lymph % (Auto) 20.1 Becker % (Auto) 6.3 Eos % (Auto) 8.9 H Baso % (Auto) 1.3 H Absolute Neuts (auto) 6.3 Absolute Lymphs (auto) 2.01 Nucleated RBC % 0 Sodium 139 Potassium 3.6 Chloride 99 Carbon Dioxide 25.6 Anion Gap 15 BUN 10 Creatinine 1.07 Estim Creat Clear Calc 96.71 Est GFR (MDRD) Non-Af 81 BUN/Creatinine Ratio 9.5 L Glucose 117 H Calcium 9.5 Total Bilirubin 0.80 AST 117 H ALT 99 H Alkaline Phosphatase 130 H Total Protein 7.7 Albumin 4.5 Globulin 3.2 Albumin/Globulin Ratio 1.4 Ethyl Alcohol 124.0 H Discharge Plan Dx/Rx/DC Orders Clinical Impression: Alcohol intoxication, Desire for detoxification, Alcohol abuse Disposition Disposition: [facility] What to do if you have Problems For any increased pain, shortness of breath, bleeding, nausea or vomiting, chest pain, or any unexpected problems, contact your Primary Care Provider. Call [facility] ([phone]) or report to the closest Emergency Room. Call 911 if necessary. 04/20/252154 <Electronically signed by Lucretia LEE> Cosigner Signature (if applicable): 04/20/252228 <Electronically signed by Alfa Beckham MD> CC: Dr. Peggy Nicole DO ~ Signed [facility] Work Phone: 1(241) 875-127208-02-2025 Discharge summary [facility] Medical Records Department [address] [place] [address] Emergency Department Summary 04/20/25 MR#: [id number] Acct: [id number] Name: SLOAN HARVEY Rep #:[id number] : 1970 55 From: Lucretia LEE PCP: Dr. Peggy Nicole DO Status:REG ER Location: ED HPI History of Present Illness Chief Complaint: Substance Abuse Narrative Narrative: Patient presenting today requesting to detox from alcohol. He drinks 1-2/5 of vodka per day, he reports that over the past 5 years he has been battling alcohol abuse and has detoxed here in the past.He also reports occasional marijuana use. He denies any history of withdrawal seizure. He does typically experience withdrawal symptoms first thing in the morning including shakiness, anxiety, nausea, and occasionally has hallucinations. His last drink was this evening, he is not currently withdrawing. [facility] Medical History Polysubstance abuse Anxiety Depression Hypertension Home Medications ?Medication ?Instructions [...] / Time No Known Allergies Allergy Verified 04/20/25 21:05 Family History Other Alcoholism Social History Smoking Status: Current every day smoker tobacco type: cigarettes Smokeless tobacco user: other substance use type: marijuana and amphetamines ROS ROS ED Constitutional Constitutional ED: Denies chills or fever(s) Cardiovascular Cardiovascular: Denies chest pain Respiratory/Chest Respiratory/Chest: Denies dyspnea Gastrointestinal Gastrointestinal: Denies abdominal pain, nausea or vomiting Musculoskeletal Musculoskeletal: Denies arthralgias or myalgias Integumentary Denies rash Neurologic Neurologic: Denies weakness Psychiatric Psychiatric: Denies anxiety, depression, suicidal ideation or suicidal thoughts EXAM Physical Exam Const Vital Signs: 04/20/25 21:04 04/20/25 22:03 Temperature 97.4 F L 96.8 F L Temperature Source Temporal Pulse Rate 83 71 Respiratory Rate 20 H 20 H Blood Pressure 120/88 H 133/81 H Blood Pressure Mean 98 98 Pulse Ox 95 94 Oxygen Delivery Method Room Air Positive well nourished, well developed and no apparent distress General Appearance ED: well developed HEENT Reports normocephalic and head/scalp atraumatic Mouth ED: Yes moist mucous membranes normal Eyes PERRL and EOMs intact bilaterally Neck full ROM and supple Chest Wall inspection of chest normal Resp normal respiratory effort and clear to auscultation bilaterally Cardio regular rate and regular rhythm Back/Spine normal ROM and normal to inspection Extremity normal to inspection and full ROM Neuro oriented x3, moves all extremities, no focal motor deficits and no sensory deficits noted Sensorium / Orientation: awake and alert Psych mental status grossly normal and thought process normal Skin no rashes or lesions noted and no wounds Physical Exam Const Vital Signs: 04/20/25 21:04 04/20/25 22:03 Temperature 97.4 F L 96.8 F L Temperature Source Temporal Pulse Rate 83 71 Respiratory Rate 20 H 20 H Blood Pressure 120/88 H 133/81 H Blood Pressure Mean 98 98 Pulse Ox 95 94 Oxygen Delivery Method Room Air MDM MDM MDM Narrative Medical decision making narrative: Patient presenting today requesting to detox from alcohol. His last drink was this evening. He drinks about 1-2/5 of vodka per day. He does not currently feel like he is going through withdrawal. Labs will be obtained and he will be admitted to the hospital. Labs at this time are pending. I have personally performed a face to face assessment of the patient and have reviewed the RENA Note. I performed a substantive portion of the visit including all aspects of the following. My robb findings include: History is remarkable for detox approximately 16 months ago. He was sober for over a year. Began todrink. He has been consuming 1/5 of vodka per day for the past 3 months. He states 1 he awakes he has tremors palpitations sweats until he starts drinking again. He states his problem is when he is put in a home because of the multiple other clients who have personality disorders. He denies bruising easily. He denies black or maroon stool. He does smoke. He states he will do fine with the patch. There is a history of hypertension and depression. Patient states he gets himself in trouble when hegoes back to work. Exam is remarkable for slight elevation in blood pressure. HEENT exam is unremarked. There is no scleral icterus. Heart is regular. Rate is normal. There is no murmur, gallop or rub. Lungs are clear to auscultation. He is alert oriented x 3. He has no obvious outward signs of withdrawal. Medical Decision Making ED addiction medicine order set was used. Will contact hospitalist for admission. Other additions or changes: [None] Lab Data Attestation: I reviewed the patient's lab results. Labs: Laboratory Results - last 24 hr 04/20/25 21:27 WBC 10.0 RBC 4.83 Hgb 14.9 Hct 43.5 MCV 90.1 MCH 30.8 MCHC 34.3 RDW Std Deviation 42.0 RDW Coeff of Jacy 12.7 Plt Count 249 MPV 9.0 Immature Gran % (Auto) 0.400 Neut % (Auto) 63.0 Lymph % (Auto) 20.1 Becker % (Auto) 6.3 Eos % (Auto) 8.9 H Baso % (Auto) 1.3 H Absolute Neuts (auto) 6.3 Absolute Lymphs (auto) 2.01 Nucleated RBC % 0 Sodium 139 Potassium 3.6 Chloride 99 Carbon Dioxide 25.6 Anion Gap 15 BUN 10 Creatinine 1.07 Estim Creat Clear Calc 96.71 Est GFR (MDRD) Non-Af 81 BUN/Creatinine Ratio 9.5 L Glucose 117 H Calcium 9.5 Total Bilirubin 0.80 AST 117 H ALT 99 H Alkaline Phosphatase 130 H Total Protein 7.7 Albumin 4.5 Globulin 3.2 Albumin/Globulin Ratio 1.4 Ethyl Alcohol 124.0 H MDM MDM Narrative Medical decision making narrative: Patient presenting today requesting to detox from alcohol. His last drink was this evening. He drinks about 1-2/5 of vodka per day. He does not currently feel like he is going through withdrawal. Labs will be obtained and he will be admitted to the hospital. I have personally performed a face to face assessment of the patient and have reviewed the RENA Note. I performed a substantive portion of the visit including all aspects of the following. My robb findings include: History is remarkable for detox approximately 16 months ago. He was sober for over a year. Began todrink. He has been consuming 1/5 of vodka per day for the past 3 months. He states 1 he awakes he has tremors palpitations sweats until he starts drinking again. He states his problem is when he is put in a home because of the multiple other clients who have personality disorders. He denies bruising easily. He denies black or maroon stool. He does smoke. He states he will do fine with the patch. There is a history of hypertension and depression. Patient states he gets himself in trouble when hegoes back to work. Exam is remarkable for slight elevation in blood pressure. HEENT exam is unremarked. There is no scleral icterus. Heart is regular. Rate is normal. There is no murmur, gallop or rub. Lungs are clear to auscultation. He is alert oriented x 3. He has no obvious outward signs of withdrawal. Medical Decision Making ED addiction medicine order set was used. Will contact hospitalist for admission. Other additions or changes: [None] Lab Data Lab results narrative: CBC is unremarkable. Competence of metabolic panel with slight elevation AST of 117 and alkaline phos of 130. Alcohol is 124. Labs: Laboratory Results - last 24 hr 04/20/25 21:27 WBC 10.0 RBC 4.83 Hgb 14.9 Hct 43.5 MCV 90.1 MCH 30.8 MCHC 34.3 RDW Std Deviation 42.0 RDW Coeff of Jacy 12.7 Plt Count 249 MPV 9.0 Immature Gran % (Auto) 0.400 Neut % (Auto) 63.0 Lymph % (Auto) 20.1 Becker % (Auto) 6.3 Eos % (Auto) 8.9 H Baso % (Auto) 1.3 H Absolute Neuts (auto) 6.3 Absolute Lymphs (auto) 2.01 Nucleated RBC % 0 Sodium 139 Potassium 3.6 Chloride 99 Carbon Dioxide 25.6 Anion Gap 15 BUN 10 Creatinine 1.07 Estim Creat Clear Calc 96.71 Est GFR (MDRD) Non-Af 81 BUN/Creatinine Ratio 9.5 L Glucose 117 H Calcium 9.5 Total Bilirubin 0.80 AST 117 H ALT 99 H Alkaline Phosphatase 130 H Total Protein 7.7 Albumin 4.5 Globulin 3.2 Albumin/Globulin Ratio 1.4 Ethyl Alcohol 124.0 H Discharge Plan Dx/Rx/DC Orders Clinical Impression: Alcohol intoxication, Desire for detoxification, Alcohol abuse Disposition Disposition: [facility] What to do if you have Problems For any increased pain, shortness of breath, bleeding, nausea or vomiting, chest pain, or any unexpected problems, contact your Primary Care Provider. Call [facility] ([phone]) or report to the closest Emergency Room. Call 911 if necessary. 04/20/252154 Cosigner Signature (if applicable): 04/20/252228 CC: Dr. Peggy Nicole DO ~ Signed [facility]08-02-2025 Discharge summary Author Lucretia Hunter [facility] Note Date/Time April 20, 2025 10: 29pm [facility] Medical Records Department [address] [place] [address] Emergency Department Summary 04/20/25 MR#: [id number] Acct: [id number] Name: SLOAN HARVEY Rep #:[id number] : 1970 55 From: Lucretia LEE PCP: Dr. Peggy Nicole DO Status:REG ER Location: ED HPI <ROSA Araya - Last Filed: 04/20/25 21:55> History of Present Illness Chief Complaint: Substance Abuse Narrative Narrative: Patient presenting today requesting to detox from alcohol. He drinks 1-2/5 of vodka per day, he reports that over the past 5 years he has been battling alcohol abuse and has detoxed here in the past. He also reports occasional marijuana use. He denies any history of withdrawal seizure. He does typically experience withdrawal symptoms first thing in the morning including shakiness, anxiety, nausea, and occasionally has hallucinations. His last drink was this evening, he is not currently withdrawing. [facility] <ROSA Araya - Last Filed: 04/20/25 21:55> [facility] Medical History Polysubstance abuse Anxiety Depression Hypertension Home Medications ?Medication ?Instructions [...] / Time No Known Allergies Allergy Verified 04/20/25 21:05 Family History Other Alcoholism Social History Smoking Status: Current every day smoker tobacco type: cigarettes Smokeless tobacco user: other substance use type: marijuana and amphetamines ROS <ROSA Araya - Last Filed: 04/20/25 21:55> ROS ED Constitutional Constitutional ED: Denies chills or fever(s) Cardiovascular Cardiovascular: Denies chest pain Respiratory/Chest Respiratory/Chest: Denies dyspnea Gastrointestinal Gastrointestinal: Denies abdominal pain, nausea or vomiting Musculoskeletal Musculoskeletal: Denies arthralgias or myalgias Integumentary Denies rash Neurologic Neurologic: Denies weakness Psychiatric Psychiatric: Denies anxiety, depression, suicidal ideation or suicidal thoughts EXAM <ROSA Araya - Last Filed: 04/20/25 21:55> Physical Exam Const Vital Signs: 04/20/25 21:04 04/20/25 22:03 Temperature 97.4 F L 96.8 F L Temperature Source Temporal Pulse Rate 83 71 Respiratory Rate 20 H 20 H Blood Pressure 120/88 H 133/81 H Blood Pressure Mean 98 98 Pulse Ox 95 94 Oxygen Delivery Method Room Air Positive well nourished, well developed and no apparent distress General Appearance ED: well developed HEENT Reports normocephalic and head/scalp atraumatic Mouth ED: Yes moist mucous membranes normal Eyes PERRL and EOMs intact bilaterally Neck full ROM and supple Chest Wall inspection of chest normal Resp normal respiratory effort and clear to auscultation bilaterally Cardio regular rate and regular rhythm Back/Spine normal ROM and normal to inspection Extremity normal to inspection and full ROM Neuro oriented x3, moves all extremities, no focal motor deficits and no sensory deficits noted Sensorium / Orientation: awake and alert Psych mental status grossly normal and thought process normal Skin no rashes or lesions noted and no wounds <Dr. Alfa Beckham MD - Last Filed: 04/20/25 22:29> Physical Exam Const Vital Signs: 04/20/25 21:04 04/20/25 22:03 Temperature 97.4 F L 96.8 F L Temperature Source Temporal Pulse Rate 83 71 Respiratory Rate 20 H 20 H Blood Pressure 120/88 H 133/81 H Blood Pressure Mean 98 98 Pulse Ox 95 94 Oxygen Delivery Method Room Air MDM <ROSA Araya - Last Filed: 04/20/25 21:55> [facility] Narrative Medical decision making narrative: Patient presenting today requesting to detox from alcohol. His last drink was this evening. He drinks about 1-2/5 of vodka per day. He does not currently feel like he is going through withdrawal. Labs will be obtained and he will be admitted to the hospital. Labs at this time are pending. I have personally performed a face to face assessment of the patient and have reviewed the RENA Note. I performed a substantive portion of the visit including all aspects of the following. My robb findings include: History is remarkable for detox approximately 16 months ago. He was sober for over a year. Began to drink. He has been consuming 1/5 of vodka per day for the past 3 months. He states 1 he awakes he has tremors palpitations sweats until he starts drinking again. He states his problem is when he is put in a home because of the multiple other clients who have personality disorders. He denies bruising easily. He denies black or maroon stool. He does smoke. He states he will do fine with the patch. There is a history of hypertension and depression. Patient states he gets himself in trouble when he goes back to work. Exam is remarkable for slight elevation in blood pressure. HEENT exam is unremarked. There is no scleral icterus. Heart is regular. Rate is normal. There is no murmur, gallop or rub. Lungs are clear to auscultation. He is alert oriented x 3. He has no obvious outward signs of withdrawal. Medical Decision Making ED addiction medicine order set was used. Will contact hospitalist for admission. Other additions or changes: [None] Lab Data Attestation: I reviewed the patient's lab results. Labs: Laboratory Results - last 24 hr 04/20/25 21:27 WBC 10.0 RBC 4.83 Hgb 14.9 Hct 43.5 MCV 90.1 MCH 30.8 MCHC 34.3 RDW Std Deviation 42.0 RDW Coeff of Jacy 12.7 Plt Count 249 MPV 9.0 Immature Gran % (Auto) 0.400 Neut % (Auto) 63.0 Lymph % (Auto) 20.1 Becker % (Auto) 6.3 Eos % (Auto) 8.9 H Baso % (Auto) 1.3 H Absolute Neuts (auto) 6.3 Absolute Lymphs (auto) 2.01 Nucleated RBC % 0 Sodium 139 Potassium 3.6 Chloride 99 Carbon Dioxide 25.6 Anion Gap 15 BUN 10 Creatinine 1.07 Estim Creat Clear Calc 96.71 Est GFR (MDRD) Non-Af 81 BUN/Creatinine Ratio 9.5 L Glucose 117 H Calcium 9.5 Total Bilirubin 0.80 AST 117 H ALT 99 H Alkaline Phosphatase 130 H Total Protein 7.7 Albumin 4.5 Globulin 3.2 Albumin/Globulin Ratio 1.4 Ethyl Alcohol 124.0 H <Dr. Alfa Beckham MD - Last Filed: 04/20/25 22:29> MDM MDM Narrative Medical decision making narrative: Patient presenting today requesting to detox from alcohol. His last drink was this evening. He drinks about 1-2/5 of vodka per day. He does not currently feel like he is going through withdrawal. Labs will be obtained and he will be admitted to the hospital. I have personally performed a face to face assessment of the patient and have reviewed the RENA Note. I performed a substantive portion of the visit including all aspects of the following. My robb findings include: History is remarkable for detox approximately 16 months ago. He was sober for over a year. Began to drink. He has been consuming 1/5 of vodka per day for the past 3 months. He states 1 he awakes he has tremors palpitations sweats until he starts drinking again. He states his problem is when he is put in a home because of the multiple other clients who have personality disorders. He denies bruising easily. He denies black or maroon stool. He does smoke. He states he will do fine with the patch. There is a history of hypertension and depression. Patient states he gets himself in trouble when he goes back to work. Exam is remarkable for slight elevation in blood pressure. HEENT exam is unremarked. There is no scleral icterus. Heart is regular. Rate is normal. There is no murmur, gallop or rub. Lungs are clear to auscultation. He is alert oriented x 3. He has no obvious outward signs of withdrawal. Medical Decision Making ED addiction medicine order set was used. Will contact hospitalist for admission. Other additions or changes: [None] Lab Data Lab results narrative: CBC is unremarkable. Competence of metabolic panel with slight elevation AST of 117 and alkaline phos of 130. Alcohol is 124. Labs: Laboratory Results - last 24 hr 04/20/25 21:27 WBC 10.0 RBC 4.83 Hgb 14.9 Hct 43.5 MCV 90.1 MCH 30.8 MCHC 34.3 RDW Std Deviation 42.0 RDW Coeff of Jacy 12.7 Plt Count 249 MPV 9.0 Immature Gran % (Auto) 0.400 Neut % (Auto) 63.0 Lymph % (Auto) 20.1 Becker % (Auto) 6.3 Eos % (Auto) 8.9 H Baso % (Auto) 1.3 H Absolute Neuts (auto) 6.3 Absolute Lymphs (auto) 2.01 Nucleated RBC % 0 Sodium 139 Potassium 3.6 Chloride 99 Carbon Dioxide 25.6 Anion Gap 15 BUN 10 Creatinine 1.07 Estim Creat Clear Calc 96.71 Est GFR (MDRD) Non-Af 81 BUN/Creatinine Ratio 9.5 L Glucose 117 H Calcium 9.5 Total Bilirubin 0.80 AST 117 H ALT 99 H Alkaline Phosphatase 130 H Total Protein 7.7 Albumin 4.5 Globulin 3.2 Albumin/Globulin Ratio 1.4 Ethyl Alcohol 124.0 H Discharge Plan Dx/Rx/DC Orders Clinical Impression: Alcohol intoxication, Desire for detoxification, Alcohol abuse Disposition Disposition: Acute Care Hospital [facility] What to do if you have Problems For any increased pain, shortness of breath, bleeding, nausea or vomiting, chest pain, or any unexpected problems, contact your Primary Care Provider. Call [facility] ([phone]) or report to the closest Emergency Room. Call 911 if necessary. 04/20/252154 <Electronically signed by Lucretia LEE> Cosigner Signature (if applicable): 04/20/252228 <Electronically signed by Alfa Beckham MD> CC: Dr. Peggy Nicole DO ~ Signed [facility] Work Phone: 1(346) 238-577806-02-2025 Discharge summary [facility] Medical Records Department [address] [place] [address] Instructions for Home/Discharge Instructions 02/18/25 1059 MR#: [id number] Acct: [id number] Name: SLOAN HARVEY Rep #:[id number] : [...] or Higher, Shortness of breath, Dizziness, Chest painand Increased palpitations (irregular heartbeat) Follow Up Care [...] can be placed): Home, Self Care 02/18/25 1244Tammy Cespedes MD CC: Dr. Samantha Leung MD; Dr. Peggy Nicole DO; Dr. Vu Jean MD ~ Signed [facility]06-02-2025 [facility] Medical Records Department [address] [place] [address] Discharge Summary 02/18/25 1244 MR#: [id number] Acct: [id number] Name: SLOAN HARVEY Rep #: [id number] : 1970 55 From: Tammy Cespedes MD PCP: Dr. Peggy Nicole DO Status:DIS IN Location: [place] [address]1 Providers Date of Admission: 02/15/25 Date of [...] hepatic steatosis. No acute cholecystitis. Reading Location: [facility] D/C Instructions Discharge Diet: Low fat / [...] applicable Ischemic Stroke Stati (more content not included)...[facility]06-01-2025 Progress note Author Vu Jean [facility] Note Date/Time February 17, 2025 4:09p m [facility] Medical Records Department [address] [place] [address] Progress Note - Hospitalist 02/17/25 1606 MR#: [id number] Acct: [id number] Name: SLOAN HARVEY Rep #:[id number] : 1970 55 From: Vu Dumont PCP: Dr. Peggy Nicole, DO Status:ADM IN Location: [place] [address]1 Reason for Visit Reason for Visit: Diagnoses [...] #Alcohol use disorder - Monitoring based on [facility] protocol - Symptom management using gabapentin, dicyclomine, [...] Ratio 1.4 Charges/Coding Visit Charges Inpatient E&M: 37852 Subs Hosp L2 02/17/25 1609 <Electronically signed by Vu Jean MD> Cosigner Signature (if applicable): CC: ~ Signed [facility] Work Phone: 1(551) 263-602006-01-2025 Progress note [facility] Medical Records Department [address] [place] [address] Progress Note - Hospitalist 02/17/25 1606 MR#: [id number] Acct: [id number] Name: SLOAN HARVEY Rep #:[id number] : 1970 55 From: Vu Dumont PCP: Dr. Peggy Nicole, DO Status:ADM IN Location: [place] [address] Reason for Visit Reason for Visit: Diagnoses [...] #Alcohol use disorder - Monitoring based on [facility] protocol - Symptom management using gabapentin, dicyclomine, [...] Ratio 1.4 Charges/Coding Visit Charges Inpatient E&M: 77190 Subs Hosp L2 02/17/25 1609 Cosigner Signature (if applicable): CC: ~ Signed [facility]05-31-2025 Progress note Author Vu Jean [facility] Note Date/Time February 16, 2025 5:11p [facility] Medical Records Department [address] [place] [address] Progress Note - Hospitalist 02/16/25 0749 MR#: [id number] Acct: [id number] Name: SLOAN HARVEY Rep #:[id number] : 1970 55 From: Vu Dumont PCP: Dr. Peggy Nicole, DO Status:[facility]M [facility] Reason for Visit Reason for Visit: Diagnoses [...] % (Auto) 66.2, Lymph % (Auto) 23.7, Becker % (Auto) 6.9, Eos % (Auto) 1.9, [...] % (Auto) 57.0, Lymph % (Auto) 27.9, Becker % (Auto) 10.4 H, Eos % (Auto) [...] #Alcohol use disorder - Monitoring based on [facility] protocol - Symptom management using gabapentin, dicyclomine, [...] -Full code Charges/Coding Visit Charges Inpatient E&M: 57089 Subs Hosp L2 02/16/25 1711 <Electronically signed by Vu Jean MD> Cosigner Signature (if applicable): CC: ~ Signed [facility] Work Phone: 1(160) 937-643405-31-2025 Progress note [facility] Medical Records Department [address] [place] [address] Progress Note - Hospitalist 02/16/25 0749 MR#: [id number] Acct: [id number] Name: SLOAN HARVEY Rep #:[id number] : 1970 55 From: Vu Dumont PCP: Dr. Peggy Nicole, DO Status:ADM IN Location: [place] [address] Reason for Visit Reason for Visit: Diagnoses [...] % (Auto) 66.2, Lymph % (Auto) 23.7, Becker % (Auto) 6.9, Eos % (Auto) 1.9, [...] % (Auto) 57.0, Lymph % (Auto) 27.9, Becker % (Auto) 10.4 H, Eos % (Auto) [...] #Alcohol use disorder - Monitoring based on [facility] protocol - Symptom management using gabapentin, dicyclomine, [...] -Full code Charges/Coding Visit Charges Inpatient E&M: 84317 Subs Hosp L2 05/31/25 1711 Cosigner Signature (if applicable): CC: ~ Signed [facility]05-31-2025 Discharge summary Author Kris Wood [facility] Note Date/Time February 15, 2025 11:03 pm [facility] Medical Records Department [address] [place] [address] Emergency Department Summary 02/15/25 MR#: [id number] Acct: [id number] Name: SLOAN HARVEY Rep #:[id number] : 1970 55 From: Kris Wood DO PCP: Dr. Peggy Nicole DO Status:ADM IN Location: [place] [address] HPI History of Present Illness Chief Complaint: [...] has no stenting. He does smoke cigarettes. [facility] Medical History Anxiety Depression Hypertension Home [...] % (Auto) 66.2 Lymph % (Auto) 23.7 Becker % (Auto) 6.9 Eos % (Auto) 1.9 [...] Care Physician,No Primary [Non-Staff] - Print Language: Samoan Disposition Disposition: Acute Care Hospital [facility] What to do if you have Problems For any increased pain, shortness of breath, bleeding, nausea or vomiting, chestpain, or any unexpected problems, contact your Primary Care Provider. Call [facility] ([phone]) or report to the closest Emergency Room. Call 911 if necessary. 02/15/25 230 <Electronically signed by Kris Wood DO> Cosigner Signature (if applicable): CC: Dr. Peggy Nicole DO ~ Signed [facility] Work Phone: 1(579) 802-956705-30-2025 Discharge summary [facility] Medical Records Department [address] [place] [address] Emergency Department Summary 02/15/25 MR#: [id number] Acct: [id number] Name: SLOAN HARVEY Rep #:[id number] : 1970 55 From: Kris Wood DO PCP: Dr. Peggy Nicole DO Status:ADM IN Location: [facility] RT821-8 HPI History of Present Illness Chief Complaint: [...] has no stenting. He does smoke cigarettes. [facility] Medical History Anxiety Depression Hypertension Home [...] % (Auto) 66.2 Lymph % (Auto) 23.7 Becker % (Auto) 6.9 Eos % (Auto) 1.9 [...] Care Physician,No Primary [Non-Staff] - Print Language: Samoan Disposition Disposition: Acute Care Hospital [facility] What to do if you have Problems For any increased pain, shortness of breath, bleeding, nausea or vomiting, chestpain, or any unexpected problems, contact your Primary Care Provider. Call [facility] ([phone]) or report tothe closest Emergency Room. Call 911 if necessary. 02/15/25 2303 Cosigner Signature (if applicable): CC: Dr. Peggy Nicole DO ~ Signed [facility]05-30-2025 History and physical note Author Samantha Leung [facility] Note Date/Time February 15, 2025 5:49p m [facility] Medical Records Department [address] [place] [address] H&P Exam - Hospitalist 02/15/25 1742 MR#: [id number] Acct: [id number] Name: SLOAN HARVEY Rep #:[id number] : [...] no other drug use. Previously admitted to [facility] for detoxification about 14 months back, [...] T 15, bilirubin 1.02, Ethyl alcohol 97.6 [facility] Medical History Anxiety Depression Hypertension Home [...] % (Auto) 66.2, Lymph % (Auto) 23.7, Becker % (Auto) 6.9, Eos % (Auto) 1.9, [...] #Alcohol use disorder - Monitoring based on [facility] protocol - Symptom management using gabapentin, dicyclomine, hydroxyzine, Zofran - Thiamine supplementation - Lorazepam taper #Nicotine dependence - Nicotine patches ordered #Acute alcoholic hepatitis - AST ALT both are elevated - Monitor PT/INR # Depression - Continue home medications # HTN - Continue amlodipine # DVT - Low risk - Encourage mobilization # CODE -Full code 02/15/25 0467 <Electronically signed by Samantha Leung MD> Cosigner Signature (if applicable): CC: Dr. Samantha Leung MD; Dr. Peggy Nicole DO~ Signed [facility] Work Phone: 1(514) 264-495805-30-2025 Evaluation note* Diagnosis Onset Date Resolution Status Admit Date Polysubstance abuse acute January 192024 5:40pm [facility] Work Phone: 1(839) 178-355405-30-2025 Evaluation note* Diagnosis Onset Date Resolution Status Admit Date Polysubstance abuse inactive January 192024 5:40pm Alcohol abuse acute April 20, 2025 10:25pm Alcohol intoxication acute Augu st 2024 10:25pm Alcoholic hepatitis acute Augus t 2024 10:25pm Depression with anxiety acute A ugust 2024 10:25pm Desire for detoxification acute April 20, 2025 10:25pm Obesity (BMI 30-39.9) acute Aug ust 2024 10:25pm Tobacco abuse acute April 20, 2025 10:25pm Transaminitis acute April 20, 2025 10:25pm [facility] Work Phone: 1(111) 976-961905-30-2025 History and physical note [facility] Medical Records Department [address] [place] [address] H&P Exam - Hospitalist 02/15/25 1742 MR#: [id number] Acct: [id number] Name: SLOAN HARVEY Rep #:[id number] : 1970 55 From: Samantha Leung MD PCP: Dr. Peggy Nicole, DO Status:REG ER Location: ED HPI - General General Date of Admission: 02/15/25 Date of Service: 02/15/25 Chief Complaint: Alcohol detoxification HPI Narrative SLONA HARVEY, is a 55 M with past [...] no other drug use. Previously admitted to [facility] for detoxification about 14 months back, [...] % (Auto) 66.2, Lymph % (Auto) 23.7, Becker % (Auto) 6.9, Eos % (Auto) 1.9, [...] Encourage mobilization # CODE -Full code 02/15/25 6645 Cosigner Signature (if applicable): CC: Dr. Samantha Leung MD; Dr. Peggy Nicole DO~ Signed [facility]11-07-2024 NoteHNO ID: [id number] Author: DIANA ROBERTSON APRN.INSTRUCTOR [employer]DELING Service: ? Author Type: Nurse Practitioner Type: [...] history is provided by the patient. No high school foreign language tutor was used. Dental Problem Review of Systems [...] History of alcoholism (HCC) SVT (supraventricular tachycardia) ([facility]) s/p ablation TIA (transient ischemic attack) PAST [...] agreeable to this care plan. Diana Robertson APRN.[facility]11-07-2024 History of Present illness Narrative* Diana Robertson [facility] - 07/26/2024 7:47 PM EST Images [...] history is provided by the patient. No high school foreign language tutor was used. Dental Problem Review of Systems [...] (degenerative disc disease), lumbar History of alcoholism ([facility]) SVT (supraventricular tachycardia) ([facility]) s/p ablation TIA (transient ischemic attack) PAST [...] agreeable to this care plan. Diana Robertson APRN.INSTRUCTOR MODELING [facility] Telephone encounter Note * Telephone Encounter [...] July 09, 2024 2:12 PM 2:12 PM [facility]10-21-2024 Miscellaneous Notes* Telephone Encounter - Angela [...] 2:12 PM 2:12 PM documented in this encounterMer[facility]09-17-2024 NoteHNO ID: [id number] Author: PEGGY NICOLE DO Service: ? Author Type: Physician Type: Progress Notes Filed: 06/05/2024 14:19 Note Text: Telemedicine Visit - Distance Health Virtual Visit Note Patient seen on [employer] Video Visit platform. Location of [place]: [place] PCP: Peggy Nicole DO History of Present [...] support currently, does not require adult social science teacher at this time - Follow up as [...] visit. Either the patient or their legal ict sales representative has been informed of the risks [...] and complete. Electronically Signed: Peggy Nicole DO. [facility]09-17-2024 History of Present illness Narrative* Peggy Nicole DO - 06/05/2024 8:35 AM EDT Telemedicine Visit - Distance Health Virtual Visit Note Patient seen on [employer] Zoom Video Visit platform. Location of [place]: [place] PCP: Peggy Nicole DO History of Present [...] support currently, does not require adult social science teacher at this time - Follow up as [...] visit. Either the patient or their legal ict sales representative has been informed of the risks [...] 05, 2024 8:36 AM Physician Attestation: Peggy Bang, DO, personally performed the services described in [...] Other VV first attempt to contact patient, PIEDAD Golden Alvarado RN June 05, 2024 8:01 AM 8:01 AM Items addressed in this encounter: Other VV precheck , name and location verified aware of tele health visit with A Bonnie Danielle RN June 05, 2024 8:31 AM 8:31 AM documented in this encounterMer[facility]09-17-2024 NoteHNO ID: [id number] Author: GOLDEN ALVARADO RN Service: ? Author Type: Registered Nurse Type: Progress Notes Filed: 06/05/2024 14:19 Note Text: Items addressed in this encounter: Other VV first attempt to contact patient, PIEDAD Golden Alvarado RN June 05, 2024 8:01 AM 8:01 AM Items addressed in this encounter: Other VV precheck , name and location verified aware of tele health visit with A Bonnie Danielle RN June 05, 2024 8:31 AM 8:31 [facility]09-10-2024 Telephone encounter Note* Telephone Encounter - Angela Rosenberg MA - 05/29/2024 3:24 PM EDT Items addressed in this encounter: Telephone Encounter Patient scheduled for 06/05/24 Angela Rosenberg MA May 29, 2024 3:24 PM 3:24 PM [facility]09-10-2024 Miscellaneous Notes* Telephone Encounter - Angela [...] 1:43 PM 1:43 PM documented in this encounterMer[facility]09-09-2024 Telephone encounter Note * Telephone Encounter - Angela Rosenberg MA - 05/28/2024 3:01 PM EDT Items addressed in this encounter: Telephone Encounter MyChart Encounter Attempted to reach patient no answer LVM and sent mychart message appointment needed Angela Rosenberg MA May 28, 2024 3:01 PM 3:01 PM [facility]09-09-2024 Telephone encounter Note* Telephone Encounter - Peggy Nicole DO - 05/28/2024 2:02 PM EDT Virtual visit to discuss with me would be recommended [facility]09-09-2024 Telephone encounter Note* Telephone Encounter - Angela Rosenberg MA - 05/28/2024 1:43 PM EDT Items addressed in this encounter: MyChart Encounter Would a appointment be recommended please advise Angela Rosenberg MA May 28, 2024 1:43 PM 1:43 PM [facility]07-17-2024 Instructions* Patient Instructions* Peggy Nicole DO - 04/04/2024 4:03 PM EDT The central scheduling phone number is [phone]. documented in this encounterMer[facility]07-17-2024 NoteHNO ID: [id number] Author: PEGGY NICOLE DO Service: ? Author Type: Physician Type: Progress Notes Filed: 04/04/2024 17:23 Note Text: Telemedicine Visit - Distance Health Virtual Visit Note Patient seen on [employer] Video Visit platform. Location of [place]: [place] PCP: Peggy Nicole DO History of Present Illness Sloan Harvey is a 54 year old male who presents for a follow-up. Alcohol Abuse: - Relapsed in September and was able to get into a facility in [place] at the end of November - transitional [...] visit. Either the patient or their legal ict sales representative has been informed of the risks [...] April 04, 2024 3:51 PM. Physician Attestation: I, Peggy Nicole DO, personally performed the services described in this documentation. All medical record entries made by the scribe were at my direction and in my presence. I have reviewed the chart and discharge instructions (if applicable) and agree that the record reflects my personal performance and is accurate and complete. Electronically Signed: Peggy Nicole DO. [facility]07-17-2024 History of Present illness Narrative* Peggy Nicole DO - 04/04/2024 3:51 PM EDT Telemedicine Visit - Distance Health Virtual Visit Note Patient seen on [employer] Video Visit platform. [place]: [place] PCP: Peggy Nicole DO History of Present Illness Sloan Harvey is a 54 year old male who presents for a follow-up. Alcohol Abuse: - Relapsed in September and was able to get into a facility in [place] at the end of November - transitional [...] visit. Either the patient or their legal ict sales representative has been informed of the risks [...] of tele health visit with A Bonnie Howe, gad7/ phq9 completed Golden Alvarado RN April 04, 2024 9:59 AM 9:59 AM documented in this encounterMer[facility]07-17-2024 NoteHNO ID: [id number] Author: GOLDEN ALVARADO RN Service: ? Author Type: Registered Nurse Type: Progress Notes Filed: 04/04/2024 17:23 Note Text: Items addressed in this encounter: Other VV pre check name and location verified, aware of tele health visit with A Bonnie Howe, gad7/ phq9 completed Golden Alvarado RN April 04, 2024 9:59 AM 9:59 [facility]05-25-2024 Telephone encounter Note* Telephone Encounter - Masha Basurto RN - 2024 12:16 PM EDT Letter sent [facility]05-25-2024 Miscellaneous Notes* Telephone Encounter - Masha Basurto RN - 2024 12:16 PM EDT Letter sent * Telephone Encounter - Masha Basruto RN - 2024 9:28 AM EDT Vm left to call and speak with the nurse * Telephone Encounter - Masha Basurto RN - 02/10/2024 11:13 AM EDT Vm left to call and speak with the nurse * Telephone Encounter - Masha Basurto RN - 02/01/2024 2:58 PM EDT Vm left to call and speak with a nurse * Telephone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 encounterMercy Health Urbana Hospital08-01-2023 History of Present illness Narrative* Peggy Nicole DO - 04/19/2023 2:47 PM EDT PHQ-9 02/16/2023 04/19/2023 Score 0 3 WHITNEY - 7 SCORES 04/19/2023 WHITNEY-7 Score 8 * Peggy Nicole DO - 04/19/2023 2:47 PM EDT Telemedicine Visit - Distance Health Virtual Visit Note Patient seen on PlayCanvas video visit platform. Location of patient: [place] PCP: Dae Mari APRN.INSTRUCTOR MODELING History of Present Illness Sloan Harvey is a 53 year old male with Pmhx of Alcoholism, PTSD, and Anxiety who presents to establish with [facility]. - Looking to establish with [...] History of alcoholism (HCC) SVT (supraventricular tachycardia) ([facility]) s/p ablation TIA (transient ischemic attack) PAST [...] visit. Either the patient or their legal ict sales representative has been informed of the risks and benefits of -- and alternatives to -- treatment through a remote evaluation andconsents to proceed with the evaluation remotely. Scribe Attestation: By signing my name below, Mely Bang, attest that this documentation has been prepared under the direction and in the presence of Peggy Nicole D.O. Electronically Signed: Mely Burton. April 19, 2023 2:47 PM. Physician Attestation: Peggy Bang DO, personally performed the services described in this documentation. All medical record entries made by the scribe were at my direction and in my presence. I have reviewed the chart and discharge instructions (if applicable) and agree that the record reflects my personal performance and is accurate and complete. documented in this encounterMercy Health Urbana Hospital08-01-2023 Nurse Note* Golden Alvarado RN - 04/19/2023 12:20 PM EDT Items addressed in this encounter: Other VV pre checked, name and location verified, aware of tele health visit with A Bonnie DO Golden Alvarado RN April 19, 2023 12:21 PM 12:21 PM * Golden Alvarado RN - 04/19/2023 11:34 AM EDT Items addressed in this encounter: Other VV second attempt, LVM Golden Alvarado RN April 19, 2023 11:34 AM 11:34 AM * Golden Alvarado RN - 04/19/2023 10:14 AM EDT Items addressed in this encounter: Other VV first attempt, LVAnalisa Alvarado RN April 19, 2023 10:14 AM 10:14 AM documented in this encounterMercy Health Urbana Hospital06-05-2023 Miscellaneous Notes* Telephone Encounter - Regina Figueroa MA - 02/21/2023 2:09 PM EDT The referral placed for February 21, 2023 has been submitted via the [facility] Internal Referral Request form on the [facility] Appointment Portal. Confirmation # [id number] Regina Figueroa MA documented in this encounterMercy Health Urbana Hospital05-31-2023 NoteHNO ID: [id number] Author: Dae Mari APRN.INSTRUCTOR MODELING Service: ? Author Type: Nurse Practitioner Type: Progress Notes Filed: 02/16/2023 4:31 PM Note Text: [facility] Adult Medicine [address] [place] [address] Date of Evaluation: 02/16/2023 Patient Name: Sloan [...] ENT. - CONSULT TO ENT Dae Mari APRN.INSTRUCTOR MODELING Return in about 1 week (around 02/23/2023) for Ea lavage . Discussed the above with the patient using shared decision making. The patient is in agreement with the diagnostic and treatment plans.[facility]05-31-2023 History of Present illness Narrative* Dae Mari APRN.CNP - 02/16/2023 4:03 PM EDT Images from the original note were not included. [facility] Adult Medicine [address] [place] [address] Date of Evaluation: 02/16/2023 Patient Name: Sloan [...] ENT. - CONSULT TO ENT Dae Mari APRN.INSTRUCTOR MODELING Return in about 1 week (around 02/23/2023) for Ea lavage . Discussed the above with the patient using shared decision making. The patient is in agreement with the diagnostic and treatment plans. documented in this encounterMercy Health Urbana Hospital03-02-2022 Telephone encounter Note * Telephone Encounter - Sari Wilson MA - 11/18/2021 1:24 PM EST refills remaining [id number] Miscellaneous Notes* Telephone Encounter - Sari Wilson MA - 11/18/2021 1:24 PM EST refills remaining documented in this [id number] Miscellaneous Notes* Assessment & Plan Note - Alda Maria MD - 10/26/2021 5:44 AM EST Associated Problem(s): Anxiety with depression Stable Follows with psych through [facility] * Assessment & Plan Note - Alda Maria MD - 10/26/2021 5:39 AM EST Associated Problem(s): Chronic low back pain Will continue ibuprofen as it helps. Instructed to discontinue Naproxen. * Assessment & Plan Note - Alda Maria MD - 10/26/2021 5:38 AM EST Associated Problem(s): Uncomplicated alcohol dependence (HCC) Working on sobriety Lives in [facility] stable * Assessment & Plan Note - Alda Maria MD - 10/26/2021 5:38 AM EST Associated Problem(s): HSV-1 infection anna Figureoa documented in this [id number] History of Present illness Narrative* Andre Galanrita, DPM - 10/15/2021 10:04 AM EST Subjective: Patient ID: Sloan Harvey is a 51 y.o. male. HPI: 5 foot 10 and 239 pound BMI of 34.3, 51-year-old male presents this date for evaluation. Patient was seen here for plantar fasciitis on his right he then twisted his foot and injured it on the left 9 days ago was seen at [place] [facility] and was diagnosed with a fracture [...] AM EST Fracture Follow Up Patient Sloan Harvey 10/15/21 Date of Injury: 9 days ago Fracture Site: foot Laterality: Left Cast/Splint/Brace/Immobilizer/Sling: No Doing Well: No There is no height or weight on file to calculate BMI. There were no vitals taken for this visit. Pain: positive Numbness/Tingling: negative Physical Therapy: No Pain Medications: IBU 200 MG PRN Refill Request: No Refill Due: No Kayli Mendoza MA documented in this [id number] History of Present illness Narrative* Alda Maria MD - 10/14/2021 11:37 AM EST Sloan Harvey is a 51 y.o. male new patient to establish care Assessment/Plan: Problem List Items Addressed This Visit Other Uncomplicated alcohol dependence (HCC) - Primary Working on sobriety Lives in [facility] stable HSV-1 infection constinue Valtrex Relevant Medications valACYclovir (VALTREX) 500 MG tablet Chronic low back pain Will continue ibuprofen as it helps. Instructed to discontinue Naproxen. Anxiety with depression Stable Follows with psych through [facility] For any new medications prescribed today, patient was educated about indications for the medication, how to take the medication and potential side effects of the medications. No follow-ups on file. HPI Anxiety with depression Stable Managed by psych at [facility] Chronic low back pain Non radiating, bilateral No bowel or bladder incontinence Dependence d/o Alcohol, THC, ect Sober since December 2020 In [facility] living Patient Active Problem List Diagnosis Chronic [...] normal. Judgment: Judgment normal. documented in this [id number] History of Present illness Narrative* Andre Duong, DPM - 10/01/2021 10:30 AM EST Subjective: Patient [...] placed in this encounter. documented in this [id number] Instructions* Patient Instructions* Thomas Kay, - 09/07/2021 6:10 PM EST Images from [...] not have a PCP please call or [phone] to locate a local PCP acceptingnew patients or you can contact your health insurance benefit provider to locate one covered under your plan. You may also go to [facility]'s website at [employer] and use the Find-A-Doc feature to locate and possibly even schedule an appointment to establish care with a PCP You may try [facility] Family Medicine Ananda's if your work hours conflict with seeing a PCP Address: [address] [place] [id number] [place] [facility] Primary Care [place] next to the [address] [address] [place] [facility] Primary Care Physicians [address], [place] [address] OR [facility] Primary Care Physicians Angel Steiner [facility] [address] [place] [address] Go to Emergency Room immediately [...] Recommend weight loss as part of your senior living treatment plan Plantar Fasciitis: Care Instructions Overview [...] taking a prescription pain medicine, take an rjev-yzl-dyhbhwl anti-inflammatory medicine for pain and swelling, such [...] heel. You can buy these at many shoestores. Put on your shoes as soon as [...] Log into your personal health record on [email or web address] and enter X351 in the Education box to learn more about Plantar Fasciitis: Care Instructions. Current as of: March 19, 2021 Content Version: 13. [employer]. Care instructions adapted under license by your healthcare professional. If you have questions about a medical condition or this instruction, always ask your healthcare professional. [employer] disclaims any warranty or liability for your use of this information. documented in this [id number] History of Present illness Narrative* Thomas Kay DO - 09/07/2021 5:59 PM EST Images from the original note were not included. Patient Name: [facility] Location: [facility] [address] [facility] [address] Date Of : Date Of Visit: 1970 09/07/2021 MRN# Provider: [id number] Thomas Kay DO Chief Complaint Patient presents with Foot Pain [...] with your PCP. Medical Decision Making Ellcessor. Sloan is a 51 y.o. 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 ). There was no [...] not have a PCP please call or [phone] to locate a local PCP acceptingnew patients or you can contact your health insurance benefit provider to locate one covered under your plan. You may also go to [facility]'s website at [employer] and use the Find-A-Doc feature to locate and possibly even schedule an appointment to establish care with a PCP You may try [facility] Family Medicine Ananda's if your work hours conflict with seeing a PCP Address: [address] [place] [address] [place] [facility] Primary Care [place] next to the [facility] [address] [place] [address] OR [facility] Primary Care Physicians [place] [address] [place] [address] N, [place] [address] OR [facility] Primary Care Physicians Angel Steiner [facility] 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 You can buy these at many [employer]. Put on your shoes as soon as [...] Log into your personal health record on [email or web address] and enter X351 in the Education box to learn more about Plantar Fasciitis: Care Instructions. Current as of: March 19, 2021 Content Version: 13.1 [employer]. Care instructions adapted under license by your healthcare professional. If you have questions about a medical condition or this instruction, always ask your healthcare professional. [employer] disclaims any warranty or liability for your [...] this encounterOhioHealthConsult note No Information to Report Ruth CORMIER on [employer] [place] Consult note Author Mely Mendoza [facility] Note Date/Time April 23, 2025 10: 34am [facility] Medical Records Department [address] [facility] [place] [address] Counseling Note - Pharmacy 04/23/25 0928 MR#: [id number] Acct: [id number] Name: SLOAN HARVEY Rep #:[id number] : 1970 55 From: Meyl Mendoza PCP: Dr. Peggy Nicole DO Status:ADM IN Y Location: [place]3 [id number] Pharmacy [place] Med Reconciliation Pharmacy Service has performed discharge [...] capsule,delayed release 30 mg PO QHS 02/15/25 04/23/25 0928 <Electronically signed by Mely Mendoza> Date _ Mely Mendoza Cosigner Signature (if applicable): Date CC: ~ Signed [facility] Work Phone: Discharge summary No Information to Report [facility] [place] [facility] Discharge summary Author [facility] Note Date/Time February 18, 2025 12:44 pm [facility] Medical Records Department [address] [place] [address] Instructions for Home/Discharge Instructions 02/18/25 1059 MR#: [id number] Acct: [id number] Name: SLOAN HARVEY Rep #:[id number] : [...] DO; Dr. Vu Jean MD ~ Signed [facility] Work Phone: Evaluation note* Diagnosis Plantar fasciitis of right foot- Primary Pes planus, unspecified laterality Peroneal tendonitis, right documented in this encounter [facility]* Diagnosis Gastrocnemius equinus, unspecified laterality- Primary Plantar fasciitis of right foot Pes planus, unspecified laterality Peroneal tendonitis, right documented in this encounter [facility]* Diagnosis Closed fracture of base of fifth metatarsal bone of left foot, initial encounter- Primary documented in this encounter [facility]* Diagnosis Uncomplicated alcohol dependence (HCC)- Primary HSV-1 infection Herpes simplex without mention of complication Chronic bilateral low back pain without sciatica Anxiety with depression documented in this encounter [facility] No Information to Report Ruth CORMIER on [employer] Evaluation note* Diagnosis Impacted cerumen of left ear- Primary Impacted cerumen Ear drainage, unspecified laterality documented [facility] this [facility]* Diagnosis H/O spinal fusion- Primary Arthrodesis [...] health care facility documented in this encounter [facility]* Diagnosis Hypertension, essential- Primary Unspecified essential hypertension Plantar fasciitis, bilateral Plantar fascial fibromatosis Cigarette nicotine dependence with other nicotine-induced disorder documented in this encounter [facility]* Diagnosis Cigarette nicotine dependence with other nicotine-induced disorder- Primary WHITNEY (generalized anxiety disorder) Generalized anxiety disorder Hypertension, essential Unspecified essential hypertension documented in this encounter [facility]* Diagnosis WHITNEY (generalized anxiety disorder) Generalized anxiety disorder documented in this encounter [facility]* Diagnosis Uncomplicated alcohol dependence (HCC) [F10.20]- Primary Other and unspecified alcohol dependence, unspecified drinking behavior documented in this encounter [facility]* Diagnosis WHITNEY (generalized anxiety disorder) Generalized anxiety disorder documented in this encounter [facility]* Diagnosis Onset Date Resolution Status Alcohol intoxication acute Alcohol withdrawal acute Polysubstance abuse acute [facility] Work Phone: Evaluation note* Diagnosis Impacted cerumen of left ear- Primary Impacted cerumen documented in this encounter [facility]* Diagnosis DDD (degenerative disc disease), lumbar- Primary Degeneration of lumbar or lumbosacral intervertebral disc Screening for colon cancer Special screening for malignant neoplasms, colon Hypertension, essential Unspecified essential hypertension Alcohol abuse Alcohol abuse, unspecified WHITNEY (generalized anxiety disorder) Generalized anxiety disorder documented in this encounter [facility]* Diagnosis Encounter for completion of form with patient- Primary WHITNEY (generalized anxiety disorder) Generalized anxiety disorder documented in this encounter [facility] note* Diagnosis Pain, dental- Primary Unspecified disorder of the teeth and supporting structures documented in this encounter [facility]* Diagnosis Onset Date Resolution Status Admit Date Polysubstance abuse acute January 192024 5:40pm [facility] Work Phone: History and physical note No Information to Report [facility] History and physical note Author Sloan Villalobos [facility] December 17, 2023 4:18pm Note Date/Time December 17, 2023 4:1 4pm [facility] Medical Records Department [address] [place] [address] H&P Exam - Hospitalist 12/17/23 1611 MR#: [id number] Acct: [id number] Name: SLOAN HARVEY Rep #:[id number] : 1970 53 From: Sloan Villalobos DO PCP: Care Physician,No Primary Status :ADM IN [facility] - General General Date of Service: [...] go through this withdrawal program here at [facility] before enrolling intothe residential program. Patient's last drink was this morning where he had a few drinks. Currently he has no withdrawal symptoms. [facility] Medical History Anxiety Depression Hypertension Home [...] % (Auto) 61.8, Lymph % (Auto) 25.3, Becker % (Auto) 9.2, Eos % (Auto) 2.5, [...] determined but patient will be on the [facility] protocol. Have phenobarbital taper available as well as other adjunctive medications to help with his withdrawal symptoms. * Thiamine and folate * Patient has been working with [facility] and the plan is for him to [...] observation status. Charges/Coding Visit Charges Inpatient E&M: 77198 Init Hosp L2 12/17/23 2537 <Electronically signed by Sloan Jopperi DO> Cosigner Signature (if applicable): CC: Dr. Sloan Villalobos, DO; No Primary Care Physician~ Signed [facility] Work Phone: History and physical note Author Samantha Leung [facility] Note Date/Time February 15, 2025 5:49p m [facility] Medical Records Department [address] [place] [address] H&P Exam - Hospitalist 02/15/25 1742 MR#: [id number] Acct: [id number] Name: SLOAN HARVEY Rep #:[id number] : [...] no other drug use. Previously admitted to [facility] for detoxification about 14 months back, [...] T 15, bilirubin 1.02, Ethyl alcohol 97.6 [facility] Anxiety Depression Hypertension Home Medications [...] % (Auto) 66.2, Lymph % (Auto) 23.7, Becker % (Auto) 6.9, Eos % (Auto) 1.9, [...] Encourage mobilization # CODE -Full code 02/15/25 7803 <Electronically signed by Samantha Leung MD> Cosigner Signature (if applicable): CC: Dr. Samantha Leung MD; Dr. Peggy Nicole DO~ Signed [facility] Work Phone: Hospital Discharge instructionsAdditional Instructions 1. Please follow-up with 180 today as already scheduled and as recommended by [facility] Work Phone: Procedure note No Information to Report [facility] Progress note No Information to Report [facility] Reason for referral (narrative)No reason for referral information availableWGalion Community Hospital Work Phone: Summary Purpose Family History No Family History Records Found Relationship Condition Age at Onset Recorded Date/T bennett Not Specified Alcoholism Unknown Advance Directives No Advanced Directives Records FoundDocuments on File Type Date Recorded Patient Green Pipefitter Expl anation Advance Directives and Living Will Power of Business Performance Manager Documents on File Type Date Recorded Patient Green Pipefitter Expl anation Advance Directives and Living Will Power of Business Performance Manager Documents on File Type Date Recorded Patient Green Pipefitter Expl anation Advance Directives and Living Will Advance Directives and Living Will 08/29/2019 10:59 AM 08/29/19 - No Ad Power of Business Performance Manager Latest Code Status on File Code Status Date Activated Date Inactivated Comments Full Code 08/29/2019 10:03 AM Documents on File Type Date Recorded Patient Green Pipefitter Expl anation Advance Directives and Living Will Advance Directives and Living Will 08/29/2019 10:59 AM 08/29/19 - No Ad Power of Business Performance Manager Latest Code Status on File Code Status Date Activated Date Inactivated Comments Full Code 08/29/2019 10:03 AM 08/30/2019 12:57 AM Documents on File Type Date Recorded Patient Green Pipefitter Expl anation Advance Directives and Living Will Power of Business Performance Manager Advance Directives and Living Will 08/29/2019 10:59 AM 08/29/19 - No Ad Documents on File Type Date Recorded Patient Green Pipefitter Expl anation Advance Directives and Living Will Documents on File Type Date Recorded Patient Green Pipefitter Expl anation Advance Directives and Living Will Documents on File Type Date Recorded Patient Green Pipefitter Expl anation Advance Directives and Livin g Will 10/09/2021 3:45 PM Advance Directive Response Recorded Date/ Time Living Will No December 17, 2023 2:21pm Power of Business Performance Manager No December 16 2:21pm Advance Directive Response Recorded Date/ Time Living Will No December 17, 2023 5:02pm Power of Business Performance Manager No December 16 5:02pm Advance Directive Response Recorded Date/ Time Do you have a Healthcare Power of Business Performance Manager? No February 15, 2025 4:06pm Advance Directive Response Recorded Date/ Time Do you have a Healthcare Power of Business Performance Manager? No February 15, 2025 6:28pm Advance Directive Response Recorded Date/ Time Do you have a Healthcare Power of Business Performance Manager? No April 20, 2025 9:25pm Do you have a Healthcare Power of Business Performance Manager? No February 15, 2025 6:28pm Advance Directive Response Recorded Date/ Time Do you have a Healthcare Power of Business Performance Manager? No April 21, 2025 12:00am Do you have a Healthcare Power of Business Performance Manager? No February 15, 2025 6:28pm Discharge Instructions * Attachments The following attachments cannot be sent through Care Everywhere. * Mood Disorders: General Info (Omani Samoan) documented in this encounter* Instructions* Negrita Zamora, PT, DPT - 08/20/2019 After Hours Care Information Please dial 911 or report to the closest emergency department for emergencies outside of the department s normal business hours. For non-emergency questions or concerns, the patient may call the office on the next business day at [phone] or call the [facility] NurseLine at [phone] or . When to stay home: We [...] including impetigo, ringworm, unexplained rashes, or shingles Kenefic eye or any other illness that may be given to other therapy participants or therapists Severe respiratory infections, sore throat, severe colds or flu Blood pressure above 160/100 While under the influence of alcohol, non-prescribed/recreational drug(s), or illegal substance(s) If you have any questions regarding whether you should attend therapy, please call your therapist at [phone]. The Rehab staff reserves the right to [...] or cancellations may result in such discharge. [facility] OUTPATIENT REHABILITATION PAYMENT POLICY I UNDERSTAND I [...] is needed, please call Resource Counseling at [phone] or [phone]. documented in this encounter* Instructions* Regina Bearden, RN - 08/29/2019 [facility] Electrophysiology EP [...] have a regular appointment scheduled with your bumper straightener, the hospital nurse will make an appointment for you prior to discharge. ? If you do not have a regular appointment scheduled with your primary care physician, the hospitalnurse will make an appointment for you prior to discharge. IF YOU HAVE A PACEMAKER or DEFIBRILLATOR: o You will need routine device clinic checks with your bumper straightener approximately every 3-6 months.If you do not receive an appointment to have your device checked within 3 months after the device is implanted, please contact your bumper straightener. o Replacement of the generator is performed [...] your doctor if you can take an [id number] medicine. If you think your pain medicine [...] Where can you learn more? Go to [email or web address].net/patientEd Enter G817 in the search box to learn more about Sedation for a Medical Procedure: Care Instructions. Current as of: August 31, 2018 Content Version: 12.3 8090-9707 [employer]. Care instructions adapted under license by your healthcare professional. If you have questions about a medical condition or this instruction, always ask your healthcare professional. [employer] disclaims any warranty or liability for your use of this information. documented in this encounter* Attachments The following attachments cannot be sent through Care Everywhere. * Mabry (Omani Samoan) documented in this encounter* Attachments The following attachments cannot be sent through Care Everywhere. * Supraventricular Tachycardia (Omani Samoan) documented in this encounter* Attachments The following attachments cannot be sent through Care Everywhere. * Depression: Treatment (Omani Samoan) documented in this encounter Assessments Diagnosis Mood [...] Complete - 24 Hour Karrie Willis PA [address] [place] [address] [facility] [address] [place] [address] Status Reason Specialty Diagnoses / Procedures Referred By Contact Referred To Contact Closed Heart and Vascul ar Diagnostics Diagnoses SVT (supraventricular tachycardia) (HCC) Procedures Echocardiogram complete (M-Mode/2D) Karrie Willis PA [address] [place] [address] Heart [facility]ag [address] [place] [address] Status Reason Specialty Diagnoses / Procedures Referred By Contact Referred To Contact Closed Heart and Vascul ar Diagnostics Diagnoses Bradycardia with 41-50 beats per minute Procedures Cardiac Event Monitor - 30 Day Karrie Willis PA [address] [place] [address] Heart V[facility] Diag [address] [place] [address] Specialty Diagnoses / Procedures Referred By Contac t Referred To Contact Orthopedic Surgery Diagnoses Plantar fasciitis of right foot Pes planus, unspecified laterality Peroneal tendonitis, right Jelenasincere, Thomas Jeffery, DO [address] [place] [address] Andre Duong, DPM [address] [place] [address] Referral ID Status Reason Start Date Expiration Date V isits Requested Visits Authorized [id number] Authorized 09/07/2021 09/07/2022 1 1 Specialty Diagnoses / Procedures Referred By Contac t Referred To Contact Ent - Otolaryngology Diagnoses Ear drainage, unspecified laterality Procedures CONSULT TO ENT OFFICE/OUTPATIENT [facility] 60-74 MINUTES Dae Mari APRN.[facility] [address] [place] [address] Referral ID Status Reason Start Date Expiration Date Visits Requested Visits Authorized [id number] Authorized PCP Requested Referral 02/16/2023 02/16/2024 1 1 Specialty Diagnoses / Procedures Referred By Contac t Referred To Contact [facility] Diagnoses H/O spinal fusion DDD (degenerative disc disease), lumbar Procedures CONSULT TO [facility] OFFICE/OUTPATIENT [facility] 60-74 MINUTES Peggy Nicole DO [address] [place] [address] Referral ID Status Reason Start Date Expiration Date Visits Requested Visits Authorized [id number] Authorized PCP Requested Referral 04/19/2023 04/18/2024 1 1 Specialty Diagnoses / Procedures Referred By Contac t Referred To Contact Podiatry Diagnoses Plantar fasciitis, bilateral Procedures CONSULT TO PODIATRY OFFICE/OUTPATIENT [facility] 60-74 MINUTES Peggy Nicole DO [address] [place] [address] Referral ID Status Reason Start Date Expiration Date Visits Requested Visits Authorized [id number] Authorized PCP Requested Referral 06/07/2023 06/06/2024 1 1 Specialty Diagnoses / Procedures Referred By Contac t Referred To Contact [facility] Diagnoses DDD (degenerative disc disease), lumbar Procedures CONSULT TO [facility] OFFICE/OUTPATIENT [facility] 60 MINUTES Peggy Nicole DO [address] [place] [address] Referral ID Status Reason Start Date Expiration Date Visits Requested Visits Authorized [id number] Authorized PCP Requested Referral 04/04/2024 04/04/2025 1 1 Hospital Course * Ananda Zhang MD - 08/29/2019 1:34 PM EST DISCHARGE SUMMARY Clinical Cardiac Electrophysiology [facility] Sloan Harvey [id number] 1970 49 y.o. Admit Date: 08/29/2019 Discharge [...] related to the procedure, please contact the [facility] EP clinic at [phone]. Plan: 1. Discharge to home. 2. Follow-up with Electrophysiology as scheduled, in about 1 month. Thank you for allowing me to participate in the care of Mr. Harvey. Please call with questions. Ananda Zhang M.D., [facility] Clinical Cardiac Electrophysiology [facility] Office: [phone] 08/29/2019 1:34 PM documented in this encounter [...] ALCOHOL DETOXIFICATION February 17, 2025 4: 06pm Chief Complaint Admit Date ALCOHOL DETOXIFICATION February 15, 2025 5: 40pm alcohol detox February 15, 2025 5:42p m ALCOHOL DETOXIFICATION February 16, 2025 7: 49am ALCOHOL DETOXIFICATION February 17, 2025 4: 06pm ALCOHOL DETOXIFICATION February 18, 2025 12 :44pm ETOH DETOX April 20, 2025 10: 25pm Reason for Visit Admit Date Polysubstance abuse February 15, 2025 5:40p m Alcohol abuse April 20, 2025 10: 25pm Alcohol intoxication April 20, 2025 10 :25pm Alcoholic hepatitis April 20, 2025 10: 25pm Depression with anxiety April 20, 2025 10:25pm Desire for detoxification April 20 10:25pm Obesity (BMI 30-39.9) April 20, 2025 1 0:25pm Tobacco abuse April 20, 2025 10: 25pm Transaminitis April 20, 2025 10: 25pm Chief Complaint Admit Date ALCOHOL DETOXIFICATION February 15, 2025 5: 40pm alcohol detox February 15, 2025 5:42p m ALCOHOL DETOXIFICATION February 16, 2025 7: 49am ALCOHOL DETOXIFICATION February 17, 2025 4: 06pm ALCOHOL DETOXIFICATION February 18, 2025 12 :44pm ETOH DETOX April 20, 2025 10: 25pm ETOH DETOX April 21, 2025 7:2 3am ETOH DETOX April 22, 2025 2:5 6pm ETOH DETOX April 23, 2025 7:4 0am Additional Source Comments (unrecognized sect ion and [...] DATE CREATED AUTHOR AUTHOR'S ORGANIZ ATION 03/15/2018 [facility] DATE CREATED AUTHOR AUTHOR'S ORGANIZ ATION 07/02/2018 [facility] DATE CREATED AUTHOR AUTHOR'S ORGANIZ ATION 10/13/2021 [facility] DATE CREATED AUTHOR AUTHOR'S ORGANIZ ATION 10/15/2021 [facility] DATE CREATED AUTHOR AUTHOR'S ORGANIZ ATION [facility] DATE CREATED AUTHOR AUTHOR'S ORGANIZ ATION 08/11/2023 [facility] DATE CREATED AUTHOR AUTHOR'S ORGANIZ ATION 10/03/2023 [facility] DATE CREATED AUTHOR AUTHOR'S ORGANIZ ATION 10/25/2023 [facility] DATE CREATED AUTHOR AUTHOR'S ORGANIZ ATION 07/28/2024 [facility] DATE CREATED AUTHOR AUTHOR'S ORGANIZ ATION 05/03/2025 [facility] Reason for Visit (unrecogniz ed section and content) Reason Comments Psychiatric Evaluation Other Medical Clearance [facility]. Status Reason Specialty Diagnoses / Procedures Referred By Contact Referred To Contact Closed Heart and Vascul ar Diagnostics Diagnoses SVT (supraventricular tachycardia) (HCC) Procedures Holter Monitor Complete - 24 Hour Karrie Willis PA [address] [place] [address] Heart V[facility] Diag [address] [place] [address] Reason Comments Outpatient Physical Therapy Status Reason Specialty Diagnoses / Procedures Referred By Contact Referred To Contact Authorized Physical Therapy Diagnoses Chronic low back pain, unspecified back pain laterality, unspecified whether sciatica present Karrie Willis PA [address] [place] [address] Negrita Zamora, PT, DPT Status Reason Specialty Diagnoses / Procedures Re ferred By Contact Referred To Contact Diagnoses SVT (supraventricular tachycardia) ([facility]) Procedures DE EPHYS EVAL W/ABLATION SUPRAVENT ARRHYTHMIA INTRACARD ECHOCARD W/THER/DX IVNTJ INCL IMG S&I DE INTRACARDIAC ELECTROPHYSIOLOGIC 3D MAPPING PROGRAMMED STIMJ&PACG AFTER IV DRUG NFS DE COMPRE ELECTROPHYSIOL XM W/LEFT ATRIAL PACNG/REC Ananda Zhang MD [address] [place] [address] Daniel Rosenbaum MD [address] [place] [address] Reason Comments Medication Refill Reason Comments Information or Advice only Reason Comments Burn Status Reason Specialty Diagnoses / Procedures Referred By Contact Referred To Contact Closed Heart and Vascul ar Diagnostics Diagnoses SVT (supraventricular tachycardia) ([facility]) Procedures Echocardiogram complete (M-Mode/2D) Karrie Willis PA [address] [place] [address] Heart V[facility] Diag [address] [place] [address] Status Reason Specialty Diagnoses / Procedures Referred By Contact Referred To Contact Closed Heart and Vascul ar Diagnostics Diagnoses Bradycardia with 41-50 beats per minute Procedures Cardiac Event Monitor - 30 Day Karrie Willis, ROSA [address] [place] [address] [facility] [address] [facility] [place] [address] Reason Comments Irregular Heart Beat Reason Comments [...] Pes planus, unspecified laterality Peroneal tendonitis, right Thomas Kay, DO [address] [place] [address] Andre Duong, DPM [address] [place] [address] Referral ID Status Reason Start Date Expiration Date Visits Re quested Visits Authorized [id number] Closed 09/07/2021 09/07/2022 1 1 Reason Comments Pain Fracture Toe Pain New problem left 5th MT fx Reason Comments Establish Care Reason Onset Date Comments Medication Refill 11/18/2021 Reason Comments New Patient Establish care. Bila teral ear wax ( would like to have flushed) Reason Comments Consult ENT #[id number] Reason Comments Referral Request Establish Care WHITNEY [...] abuse Procedures CONSULT TO CHEMICAL DEPENDENCY OFFICE/OUTPATIENT [facility] 60-74 MINUTES Mimi JUNIOR Pryor [address] [place] [address] Referral ID Status Reason Start Date Expiration Date Visits Requested Visits Authorized [id number] Pending Review PCP Requested Referral 07/21/2023 07/20/2024 [...] RN called and spoke with Andre at [facility], he states that they are ready for patient. [facility] states pt has been approved to go to [facility], pending negative covid, will fax over the paperwork Called [facility] they are working on pt admission This RN faxed ER summary, labs and psych ease RN note to [facility]. This RN called [facility] at [phone] and spoke to Janis. She reports once she receives the fax, she will call their Crisis Counselor wage conciliator and will call ER to complete Crisis assessment over the phone. This RN will inform nurse caring for pt. Erika Mckeon RN. Met with pt. In room. He is a/o x 3, depressed mood and affect. Pt reports he completed the intake with [facility] and reports they will have a bed [...] go there until he can get into [facility] for treatment. ED Diagnosis and Summary 1. Depression, unspecified depression type 2. History of alcohol abuse ED Summary Medical screening evaluation, including screening blood work and urine testing, is unremarkable. The patient is depressed but not suicidal. He wants to go to crisis and eventually to [facility] for rehab but I am told that [facility] will not have a bed for at least another day, maybe two. Will ask psych nurse to facilitate evaluation for the crisis center. History Chief Complaint Patient presents with Alcohol Problem 50M, history of ethanol abuse, had been clear for about 8 months but recently relapsed, presents with depression. He reports he wants to eventually go to [facility] where he has been before but in [...] PAIN (TAKE WITH FOOD.). 90 tablet Mavis Little DO melatonin 3 MG TABS Take 3 mg by mouth nightly as needed for Sleep. Provider, MD Hayley valACYclovir (VALTREX) 500 MG tablet Take 1 tablet by mouth daily. 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 Will come back to meet with pt. Shortly. Pt calling [facility] at this time to see if they [...] Member Role Status Dates Dr. Peggy Nicole DO Primary Care Provider Active Team Status: Inactive [...] Member Role Status Dates Dr. Kris Wood , DO Referring Provider Active S tart: February 17, 2025 Dr. Kris Wood , DO Emergency Provider Active S tart: February 17, 2025 Dr. Peggy Nicole , Primary Care Provider Active Start: February 17, 2025 Dr. Samantha Leung MD Admit Provider Active St art: February 17, 2025 Dr. Samantha Leung MD Other Provider Active St art: February 17, 2025 Dr. Vu Jean MD Attending Provider Active Start: February 17, 2025 Dr. Vu Jean MD Other Provider Active Sta rt: February 17, 2025 Office Messenger Relationship Specialty Start Date End Date No, Physician [facility] PCP - General 06/19/21 Office Messenger Relationship Specialty Start Date End Date No, Physician [facility] PCP - General 06/19/21 Office Messenger Relationship Specialty Start Date End Date Alda Maria MD [address] [place] [address] PCP - General Family Medicine 10/14/21 Office Messenger Relationship Specialty Start Date End Date Alda Maria MD [address] [place] [address] PCP - General Family Medicine 10/14/21 Office Messenger Relationship Specialty Start Date End Date Alda Maria MD [address] [place] [address] PCP - General Family Medicine 10/14/21 Office Messenger Relationship Specialty Start Date End Date Alda Maria MD [address] [place] [address] PCP - General Family Medicine 10/14/21 Office Messenger Relationship Specialty Start Date End Date Dae Mari, TIRSO.[facility] [address] [place] [address] PCP - General Family Medicine 02/16/23 Office Messenger Relationship Specialty Start Date End Date Dae Mari, T[facility]SO[facility] [address] [place] [address] PCP - General Family Medicine 02/16/23 Office Messenger Relationship Specialty Start Date End Date Peggy Nicole DO [address] [place] [address] PCP - General Family Medicine 04/19/23 Office Messenger Relationship Specialty Start Date End Date Peggy Nicole DO [address] [place] [address] PCP - General Family Medicine 04/19/23 Office Messenger Relationship Specialty Start Date End Date Peggy Nicole DO [address] [place] [address] PCP - General Family Medicine 04/19/23 Office Messenger Relationship Specialty Start Date End Date Peggy Nicole DO [address] [place] [address] PCP - General Family Medicine 04/19/23 Office Messenger Relationship Specialty Start Date End Date Peggy Nicole DO [address] [place] [address] PCP - General Family Medicine 04/19/23 Office Messenger Relationship Specialty Start Date End Date Peggy Nicole DO [address] [place] [address] PCP - General Family Medicine 04/19/23 Office Messenger Relationship Specialty Start Date End Date Peggy Nicole DO [address] [place] [address] PCP - General Family Medicine 04/19/23 Office Messenger Relationship Specialty Start Date End Date Peggy Nicole DO [address] [place] [address] PCP - General Family Medicine 04/19/23 Office Messenger Relationship Specialty Start Date End Date Peggy Nicole DO [address] [place] [address] PCP - General Family Medicine 04/19/23 Office Messenger Relationship Specialty Start Date End Date Peggy Nicole DO [address] [place] [address] PCP - General Family Medicine 04/19/23 Office Messenger Relationship Specialty Start Date End Date Peggy Nicole DO [address] [place], [place] [address] PCP - General Family Medicine 04/19/23 Team Status: Active Member Role Status Dates No Primary Care Physician Primary Care Provider Active Team Status: Active Member Role Status Dates Dr. Sloan Gonzalez , DO Emergency Provider Active No Primary Care Physician Primary Care Provider Active Dr. Sloan Villaloobs , DO Admit Provider, At tending Provider, Other Provider Active Team Status: Active Member Role Status Dates Dr. Sloan Gonzalez , DO Emergency Provider Active No Primary Care Physician Primary Care Provider Active Dr. Sloan Villalobos , DO Admit Provider, Attending Provid er Active Team Status: Active Member Role Status Dates Dr. Sloan Gonzalez , DO Emergency Provider Active No Primary Care Physician Primary Care Provider Active Dr. Sloan Villalobos , DO Admit Provider, Other Provider A ctive Dr. Anatoly Peck , DO Attending Provider, Other Pro vider Active Team Status: Active Member Role Status Dates Dr. Sloan Gonzalez , DO Emergency Provider Active No Primary Care Physician Primary Care Provider Active Dr. Sloan Villalobos , DO Admit Provider, Other Provider A ctive Dr. Umang Bassett MD Attending Provider, Other Provid er Active Dr. Anatoly Peck , DO Other Provider Active Team Status: Inactive Member Role Status Dates Dr. Sloan Gonzalez , DO Emergency Provider Active No Primary Care Physician Primary Care Provider Active Dr. Sloan Villalobos , DO Admit Provider, Other Provider A ctive Dr. Umang Bassett MD Attending Provider Active Dr. Anatoly Peck , DO Other Provider Active Office Messenger Relationship Specialty Start Date End Date Peggy Nicole DO [address] [place] [address] PCP - General Family Medicine 04/19/23 Office Messenger Relationship Specialty Start Date End Date Peggy Nicole DO [address] [place] [address] PCP - General [facility] Medicine 04/19/23 Office Messenger Relationship Specialty Start Date End Date Peggy Nicole DO [address] [place] [address] PCP - General Family Medicine 04/19/23 Team [...] February 15, 2025 Team Status: Active Member Role/Relationship Status Dates Dr. Peggy Nicole DO Primary Care Provider Active Team Status: Inactive Member Role/Relationship Status Dates Dr. Kris Wood DO Referring [...] February 18, 2025 Team Status: Active Member Role/Relationship Status Dates Dr. Kris Wood DO Emergency Provider Active S tart: February 15, 2025 Dr. Peggy Nicole DO Primary Care Provider Active Start: February 15, 2025 Dr. Samantha Leung MD Attending Provider Active Start: February 15, 2025 Team Status: Active Member Role/Relationship Status Dates Dr. Kris Wood DO Emergency Provider Active [...] February 16, 2025 Team Status: Active Member Role/Relationship Status Dates Dr. Kris Wood DO Emergency Provider Active [...] Provider Active Sta rt: February 17, 2025 Team Status: Active Member Role/Relationship Status Dates Dr. Kris Wood DO Emergency Provider Active S tart: February 18, 2025 Dr. Peggy Nicole DO Primary Care Provider Active Start: February 18, 2025 Dr. Samantha Leung MD Admit Provider Active St art: February 18, 2025 Dr. Samantha Leung MD Other Provider Active St art: February 18, 2025 Dr. Tammy Cespedes MD Attending Provider Active Start: February 18, 2025 Dr. Tammy Cespedes MD Other Provider Active St art: February 18, 2025 Dr. Vu Jean MD Other Provider Active Sta rt: February 18, 2025 Team Status: Active Member Role/Relationship Status Dates Dr. Peggy Nicole DO Primary Care Provider Active Start: April 20, 2025 Dr. Alfa Beckham MD Emergency Provider Active Sta rt: April 20, 2025 Dr. Umang Arias DO Admit Provider Active Start: April 20, 2025 Dr. Umang Arias DO Attending Provider Active Start: April 20, 2025 Team Status: Inactive Member Role/Relationship Status Dates Dr. Peggy Nicole DO Primary Care Provider Active Start: April 20, 2025 End: April 23, 2025 Dr. Alfa Beckham MD Emergency Provider Active Sta rt: April 20, 2025 End: April 23, 2025 Dr. Umang Arias DO Admit Provider Active Start: April 20, 2025 End: April 23, 2025 Dr. Umang Arias DO Other Provider Active Start: April 20, 2025 End: April 23, 2025 Dr. Crisitna Salas DO Attending Provider Active S tart: April 20, 2025 End: April 23, 2025 Team Status: Active Member Role/Relationship Status Dates Dr. Peggy Nicole DO Primary Care Provider Active Start: April 21, 2025 Dr. Alfa Beckham MD Emergency Provider Active Sta rt: April 21, 2025 Dr. Umang Arias DO Admit Provider Active Start: April 21, 2025 Dr. Umang Arias DO Other Provider Active Start: April 21, 2025 Dr. Crsitina Salas DO Attending Provider Active S tart: April 21, 2025 Dr. Cristina Salas DO Other Provider Active Start : April 21, 2025 Team Status: Active Member Role/Relationship Status Dates Dr. Peggy Nicole DO Primary Care Provider Active Start: April 22, 2025 Dr. Alfa Beckham MD Emergency Provider Active Sta rt: April 22, 2025 Dr. Umang Arias DO Admit Provider Active Start: April 22, 2025 Dr. Umang Arias DO Other Provider Active Start: April 22, 2025 Dr. Cristina Salas DO Attending Provider Active S tart: April 22, 2025 Dr. Cristina Salas DO Other Provider Active Start : April 22, 2025 Team Status: Active Member Role/Relationship Status Dates Dr. Peggy Nicole DO Primary Care Provider Active Start: April 23, 2025 Dr. Alfa Beckham MD Emergency Provider Active Sta rt: April 23, 2025 Dr. Umang Arias DO Admit Provider Active Start: April 23, 2025 Dr. Umang Arias DO Other Provider Active Start: April 23, 2025 Dr. Cristina Salas DO Attending Provider Active S tart: April 23, 2025 Dr. Cristina Salas DO Other Provider Active Start : April 23, 2025 Source Comments (unrecognize d section and content) In the event this informatio n is protected by the Federal Confidentiality of Alcohol and Drug Abuse Patient Records regulations: The Federal rules restrict any use of the information to criminally investigate or prosecute any alcohol or drug abuse patient.[facility] the event this information is protected by the Federal Confidentiality of Alcohol and Drug Abuse Patient Records regulations: The Federal rules restrict any use of the information to criminally investigate or prosecute any alcohol or drug abuse patient.[facility] the event this information is protected by the Federal Confidentiality of Alcohol and Drug Abuse Patient Records regulations: The Federal rules restrict any use of the information to criminally investigate or prosecute any alcohol or drug abuse patient.[facility] the event this information is protected by the Federal Confidentiality of Alcohol and Drug Abuse Patient Records regulations: The Federal rules restrict any use of the information to criminally investigate or prosecute any alcohol or drug abuse patient.[facility] HospitalIn the event this information is protected by the Federal Confidentiality of Alcohol and Drug Abuse Patient Records regulations: The Federal rules restrict any use of the information to criminally investigate or prosecute any alcohol or drug abuse patient.[facility] HospitalIn the event this information is protected by the Federal Confidentiality of Alcohol and Drug Abuse Patient Records regulations: The Federal rules restrict any use of the information to criminally investigate or prosecute any alcohol or drug abuse patient.[facility] HospitalIn the event this information is protected by the Federal Confidentiality of Alcohol and Drug Abuse Patient Records regulations: The Federal rules restrict any use of the information to criminally investigate or prosecute any alcohol or drug abuse patient.[facility] HospitalIn the event this information is protected by the Federal Confidentiality of Alcohol and Drug Abuse Patient Records regulations: The Federal rules restrict any use of the information to criminally investigate or prosecute any alcohol or drug abuse patient.[facility] HospitalIn the event this information is protected by the Federal Confidentiality of Alcohol and Drug Abuse Patient Records regulations: The Federal rules restrict any use of the information to criminally investigate or prosecute any alcohol or drug abuse patient.[facility] HospitalIn the event this information is protected by the Federal Confidentiality of Alcohol and Drug Abuse Patient Records regulations: The Federal rules restrict any use of the information to criminally investigate or prosecute any alcohol or drug abuse patient.[facility] HospitalIn the event this information is protected by the Federal Confidentiality of Alcohol and Drug Abuse Patient Records regulations: The Federal rules restrict any use of the information to criminally investigate or prosecute any alcohol or drug abuse patient.[facility] HospitalIn the event this information is protected by the Federal Confidentiality of Alcohol and Drug Abuse Patient Records regulations: The Federal rules restrict any use of the information to criminally investigate or prosecute any alcohol or drug abuse patient.[facility] HospitalIn the event this information is protected by the Federal Confidentiality of Alcohol and Drug Abuse Patient Records regulations: The Federal rules restrict any use of the information to criminally investigate or prosecute any alcohol or drug abuse patient.[facility] HospitalIn the event this information is protected by the Federal Confidentiality of Alcohol and Drug Abuse Patient Records regulations: The Federal rules restrict any use of the information to criminally investigate or prosecute any alcohol or drug abuse patient.[facility] HospitalIn the event this information is protected by the Federal Confidentiality of Alcohol and Drug Abuse Patient Records regulations: The Federal rules restrict any use of the information to criminally investigate or prosecute any alcohol or drug abuse patient.[facility] HospitalIn the event this information is protected by the Federal Confidentiality of Alcohol and Drug Abuse Patient Records regulations: The Federal rules restrict any use of the information to criminally investigate or prosecute any alcohol or drug abuse patient.[facility] HospitalIn the event this information is protected by the Federal Confidentiality of Alcohol and Drug Abuse Patient Records regulations: The Federal rules restrict any use of the information to criminally investigate or prosecute any alcohol or drug abuse patient.[facility] HospitalIn the event this information is protected by the Federal Confidentiality of Alcohol and Drug Abuse Patient Records regulations: The Federal rules restrict any use of the information to criminally investigate or prosecute any alcohol or drug abuse patient.[facility] HospitalIn the event this information is protected by the Federal Confidentiality of Alcohol and Drug Abuse Patient Records regulations: The Federal rules restrict any use of the information to criminally investigate or prosecute any alcohol or drug abuse patient.[facility] HospitalIn the event this information is protected by the Federal Confidentiality of Alcohol and Drug Abuse Patient Records regulations: The Federal rules restrict any use of the information to criminally investigate or prosecute any alcohol or drug abuse patient.[facility] HospitalIn the event this information is protected by the Federal Confidentiality of Alcohol and Drug Abuse Patient Records regulations: The Federal rules restrict any use of the information to criminally investigate or prosecute any alcohol or drug abuse patient.[facility] HospitalIn the event this information is protected by the Federal Confidentiality of Alcohol and Drug Abuse Patient Records regulations: The Federal rules restrict any use of the information to criminally investigate or prosecute any alcohol or drug abuse patient.[facility] HospitalIn the event this information is protected by the Federal Confidentiality of Alcohol and Drug Abuse Patient Records regulations: The Federal rules restrict any use of the information to criminally investigate or prosecute any alcohol or drug abuse patient.[facility] HospitalIn the event this information is protected by the Federal Confidentiality of Alcohol and Drug Abuse Patient Records regulations: The Federal rules restrict any use of the information to criminally investigate or prosecute any alcohol or drug abuse patient.[facility] HospitalIn the event this information is protected by the Federal Confidentiality of Alcohol and Drug Abuse Patient Records regulations: The Federal rules restrict any use of the information to criminally investigate or prosecute any alcohol or drug abuse patient.[facility] Goals (unrecognized section and content) Goals [...] BE BASED ON THE PRIMARY CLINICAL RECORDS. [facility]. provides no warranty or guarantee of the accuracy or completeness of information in this document.
[2025-05-05 17:21] LABS: Hematocrit 42.7 % (40-54); Hemoglobin 14.3 g/dL (13.0-16.5); Immature Granulocytes Count 0.030 X10^3/uL (0.0-0.0); Mean Corp Hgb Conc 33.5 g/dL (32-36); Mean Corpuscular Volume 90.9 fL (80-94); Mean Platelet Vol. 8.9 fl (6.2-12.0); NRBC Flagged by Analyzer 0 % (0-5); Platelet Count 234 K/mm3 (150-450); RBC Distribution Width CV 13.2 % (11.6-14.6); RBC Distribution Width SD 43.2 fl (35.1-43.9); Red Blood Count 4.70 M/mm3 (4.6-6.2); White Blood Count 7.7 K/mm3 (4.4-11.0)
[2025-05-05 18:09] LABS: Alcohol, Blood (Medical)-Serum 110.0 mg/dL (<=10.0); Lipase 23 U/L (13-75)
[2025-05-05 18:13] LABS: AST(SGOT) 116 U/L (<=37); Alanine Aminotransfer ALT/SGPT 79 U/L (<=46); Albumin, Serum 4.1 g/dL (3.5-5.0); Alkaline Phosphatase 114 U/L (40-129); Anion Gap 19 (5-15); BUN 7 mg/dL (4-19); BUN/Creat Ratio 8.0 RATIO (10-20); Calcium,Total 9.4 mg/dL (7.6-11.0); Carbon Dioxide 22.6 mmol/L (21.0-32.0); Chloride 101 mmol/L (98-108); Estimated Creatinine Clearance 119.49 ml/min (50-250); Globulin 3.4 g/dL (2.2-4.2); Glucose 201 mg/dL (70-99); Potassium 3.3 mmol/L (3.3-5.1)
--- NOTE | 2025-05-05 18:38 | RAD_ITS ---
PROCEDURE: CHEST PA AND LATERAL 05/05/2025 REASON FOR EXAM: COUGH TECHNIQUE: CHEST PA AND LATERAL COMPARISON: None. FINDINGS: Lungs/Pleura: Clear. No airspace consolidation, pneumothorax or pleural effusion. Heart/Mediastinum: Within normal limits. Bones/Soft tissues: Mild degenerative changes of the thoracic spine. RAD/Chest PA and Lateral IMPRESSION: No acute pulmonary disease. Reading Location: [id number]
[2025-05-05 19:00] LABS: Barbiturate Urine PRESUMPTIVE POSITIVE (< 200 ng/mL); Benzodiazepine Urine NEGATIVE (< 200 ng/mL); PCP Urine NEGATIVE (< 25 ng/mL); THC Urine PRESUMPTIVE POSITIVE (< 50 ng/mL)
[2025-05-05 19:30] LABS: D-Dimer Quantitative (DVT/PE) 0.30 FEU/ug/m (0.27-0.49)
--- NOTE | 2025-05-05 20:02 | PCM.HP.STD ---
HPI - General General Date of Admission: 05/05/25 Date of Service: 05/05/25 Chief Complaint: ETOH detox HPI Narrative SLOAN WATERS, is a 55 M w/ hx of depression and anxiety, alcohol use, tobacco use, and HTN who presented to [facility] ED 05/05/25 for ETOH detox. In ED BP 137/84, HR 87, RR 18, initially pulse ox 98%. Lab w/u w/ wbc and hgb WNL. CMP with an AST of 116 and ALT of 79. UDS positive for barbiturates and cannabis, alcohol level 110. Hospitalist contacted for admission for alcohol detox. He was here earlier in the month for etoh detox but has been drinking again since discharge, he drinks 1 to 2/5th's of alcohol a day. He has been living in his car and now has a place he can stay but he has to go through detox. Pt reports nasal congestion w/ significant output w/ odd colors and some sinus pressure but no fevers, denies chest pain or shortness of breath, denies cough, denied any swelling in his legs. Values in the ED sats dropped down to 88% and patient was placed on 2 L, he was given a breathing treatment, he had absolutely no respiratory complaints and a D-dimer was negative and a chest x-ray with no acute process. [facility] Medical History Depression with anxiety Obesity (BMI 30-39.9) Tobacco abuse Polysubstance abuse Anxiety Depression Hypertension Home Medications ?Medication ?Instructions ?Recorded ?Last Taken ?Type amlodipine 5 mg tablet 5 mg PO DAILY 12/17/23 05/05/25 History buspirone 10 mg tablet 10 mg PO TID 12/17/23 05/05/25 History duloxetine 60 mg capsule,delayed 60 mg PO DAILY 12/17/23 05/05/25 History release hydroxyzine pamoate 25 mg capsule 50 mg PO TID PRN anxiety 12/17/23 02/15/25 History ibuprofen 600 mg tablet 600 mg PO TID PRN pain 12/17/23 02/15/25 History duloxetine 30 mg capsule,delayed 30 mg PO QHS 02/15/25 05/04/25 History release Allergy/AdvReac Type Severity Reaction Status Date / Time No Known Allergies Allergy Verified 05/05/25 16:21 Family History Other Alcoholism Social History Smoking Status: Current every day smoker tobacco type: cigarettes Smokeless tobacco user: other substance use type: marijuana and amphetamines ROS ROS Narrative General: Denies fever/chills HENT: Denies sore throat, does have nasal congestion and sinus pressure as above EYES: Denies changes in vision Resp: Denies cough, denies shortness of breath Cardiac: Denies chest pain GI: Denies abdominal pain, denies changes in bowel, denies nausea/vomiting : Denies changes in urination Extremity: Denies swelling MSK: Denies weakness Neuro: Denies any numbness/tingling Heme: Denies any bleeding or bruising Skin: Denies rashes Psychiatric: No complaints voiced Vital Signs Vital Signs Vital Signs: 05/05/25 16:21 05/05/25 17:21 05/05/25 18:00 Temperature 96.9 F L Temperature Source Temporal Pulse Rate 97 87 81 Respiratory Rate 14 18 Blood Pressure 130/80 H 142/95 H Blood Pressure Mean 96 110 Pulse Ox 98 88 Oxygen Delivery Method Room Air Room Air Oxygen Flow Rate (L/min) 05/05/25 18:30 05/05/25 18:49 05/05/25 18:59 Temperature Temperature Source Pulse Rate 80 78 Respiratory Rate 18 12 Blood Pressure 135/83 H Blood Pressure Mean 100 Pulse Ox 93 Oxygen Delivery Method Nasal Cannula Nasal Cannula Oxygen Flow Rate (L/min) 2 2 05/05/25 19:00 05/05/25 19:54 05/05/25 20:00 Temperature 98 F Temperature Source Pulse Rate 87 87 Respiratory Rate 18 18 Blood Pressure 135/83 H 135/83 H 137/84 H Blood Pressure Mean 100 100 101 Pulse Ox 94 92 91 Oxygen Delivery Method Nasal Cannula Nasal Cannula Oxygen Flow Rate (L/min) 2 2 Weight Weight: 110.7 kg Body Mass Index (BMI) 35.0 Physical Exam Narrative General: Alert, oriented, no apparent distress HEENT: Atraumatic, normocephalic Eyes: extraocular movements grossly intact Neck: Supple Respiratory: normal respiratory effort Cardiovascular: no edema appreciated GI: nondistended Extremities: Moving all extremities Neuro: No overt focal neurological deficits Psych: Cooperative Results Lab / Micro Data 05/05/25 17:15 05/05/25 17:15 Labs: Laboratory Results - last 24 hr 05/05/25 17:15: WBC 7.7, RBC 4.70, Hgb 14.3, Hct 42.7, MCV 90.9, MCH 30.4, MCHC 33.5, RDW Std Deviation 43.2, RDW Coeff of Jacy 13.2, Plt Count 234, MPV 8.9, Immature Gran % (Auto) 0.400, Neut % (Auto) 61.9, Lymph % (Auto) 20.8, Price % (Auto) 4.2, Eos % (Auto) 11.4 H, Baso % (Auto) 1.3 H, Absolute Neuts (auto) 4.8, Absolute Lymphs (auto) 1.60, Nucleated RBC % 0, Sodium 142, Potassium 3.3, Chloride 101, Carbon Dioxide 22.6, Anion Gap 19 H, BUN 7, Creatinine 0.86, Estim Creat Clear Calc 119.49, Est GFR (MDRD) Non-Af 102, BUN/Creatinine Ratio 8.0 L, Glucose 201 H, Calcium 9.4, Total Bilirubin 0.53, AST 116 H, ALT 79 H, Alkaline Phosphatase 114, Total Protein 7.5, Albumin 4.1, Globulin 3.4, Albumin/Globulin Ratio 1.2, Lipase 23, Ethyl Alcohol 110.0 H 05/05/25 18:32: Urine Opiates Screen NEGATIVE, U Buprenorphine Qual NEGATIVE, Ur Oxycodone Screen NEGATIVE, Urine Methadone Screen NEGATIVE, Urine Fentanyl Screen NEGATIVE, Ur Barbiturates Screen PRESUMPTIVE POSITIVE, Ur Phencyclidine Scrn NEGATIVE, Ur Amphetamines Screen NEGATIVE, U Benzodiazepines Scrn NEGATIVE, Urine Cocaine Screen NEGATIVE, U Cannabinoids Screen PRESUMPTIVE POSITIVE 05/05/25 19:15: D-Dimer Quant (PE/DVT) 0.30 Imaging Radiology Impression Chest X-Ray 05/05/25 18:38 IMPRESSION: No acute pulmonary disease. Reading Location: [id number] Assessment & Plan Assessment/Plan (1) Alcohol withdrawal: (2) Hypoxia: PLAN: Plan #Alcohol use disorder - We will begin CIWA every 4 for 24 hours, then every 6 for 24 hours, then every 12 until discharge -Will begin phenobarbital taper -Gabapentin 300 mg every 8 as needed -Will start Bentyl and hydroxyzine as needed as well as loperamide as needed -Trazodone 100 mg p.o. nightly as needed sleep -Begin thiamine and folic acid supplementation -Zofran as needed for nausea -Case management consult to assist with discharge planning -EtOH 110 -UDS cannabis #Hypoxia -Pt w/ no SOB or cough, does have sinus symptoms -CXR negative, ddimer negative -Will obtain covid and resp panels -on 2L NC in no respiratory distress -does have long smoking history, will have nebs -Not wheezing or coughing, will hold of on steroids -I/S #Sinus infection -3 weeks of purulent drainage and nasal pressure -Suspect sinus infection -Will treat w/ Augmentin #Depression/anxiety -Continue home medications #Hypertension - Hold home amlodipine while receiving other medications to avoid hypotension, can add back as needed/tolerated #Tobacco use -Advise cessation -Nicotine replacement available if desired #DVT ppx: Lovenox subq Shannen Roman MD Charges/Coding Visit Charges Inpatient E&M: 40947 Init Hosp L2
--- OUTSIDE RECORDS SUMMARY | 2025-05-05 20:10 | XMS RPT_ITS | CCD ---
Author Organization [facility] Care Team Providers Care Manager Desktop Name Role Phone HEATHER, DARRELL D Unavailable [...] Provider Alda Maria MD Primary Care Provider [phone] No Information to Report Unavailable Unavail able Kamaljit PROCESSES CHEMICAL DESIGN ENGINEERDae MA Primary Care Provider Peggy Nicole DO [...] Unavailable Israel HOWE, Dr. Ponce Referring Provider [phone] Israel HOWE, Dr. Ponce Emergency Provider Bonnie [...] Dr. Tammy Chandler Other Provider Dr. Alfa Beckham MD Emergency Provider Arias DO, Dr. Heck [...] Start: 12-17-2023 take 1 capsule by mo [facility] once daily Duloxetine 60 mg [...] once daily. Take 1 capsule by mo [facility] once daily. hydrOXYzine hydrochloride 25 mg [...] Onset: 06-27-2017 Unclassified (1 source) Aphasia / [id number]() Onset: 06-11-2017 Unclassified (1 source) Unknown / [...] 04-22-2025 Anion gap [Moles/Vol] 11 mmol/L 5-15 [facility] BUN/creatinine ratioOrdered By: Cristina Salas on 04-22-2025 Urea nitrogen/Creatinine [Mass ratio] 8.2 mg/mg Low 10- [facility] Basic Metabolic Profile (BMP )on 04-22-2025 BUN/CRE 8.2 RATIO Low 10- [facility] Comment on above: Performed By: #### L 501.5200 #### [facility] [address] [place], [address] Calcium [Mass/Vol] 9.1 mg/dL Normal 7.6-11.0 [facility] Comment on above: Performed By: #### L 501.5200 #### [facility] [address] [place], [address] Chloride [Moles/Vol] 102 mmol/L Normal 98-108 [facility] Comment on above: Performed By: #### L 501.5200 #### [facility] [address] [place], [address] CO2 [Moles/Vol] 25.3 mmol/L Normal 21.0-32.0 [facility] Comment on above: Performed By: #### L 222.5200 #### [facility] [address] [place], [address] Creatinine [Mass/Vol] 0.79 mg/dL Normal 0.70-1.20 [facility] Comment on above: Performed By: #### L 501.5200 #### [facility] [address] [place], [address] ECRCL 129.37 ml/min Normal 50-250 [facility] Comment on above: Performed By: #### L 501.5200 #### [facility] [address] [place], [address] GAP 11 Normal 5-15 [facility] Comment on above: Performed By: #### L 501.5200 #### [facility] [address] [place], [address] GFR/1.73 sq M.predicted among non-blacks MDRD (S/P/Bld) [Vol rate/Area] 104 mL/min/{1.73_m2} Normal >60 [facility] Comment on above: Result Comment: mL/m in/1.73m2 CKD-EPI Creatinine Equation (2020) Performed By: #### L 952.5200 #### [facility] [address] [place], [address] Glucose [Mass/Vol] 104 mg/dL High 70-99 [facility] Comment on above: Performed By: #### L 501.5200 #### [facility] [address] [place], [address] Potassium [Moles/Vol] 4.1 mmol/L Normal 3.3-5.1 [facility] Comment on above: Result Comment: Hemo lysis present, Results??could be affected. ?? Performed By: #### L 696.5200 #### [facility] [address] [place], [address] Sodium [Moles/Vol] 138 mmol/L Normal 133-145 [facility] Comment on above: Performed By: #### L 501.5200 #### [facility] [address] [place], [address] Urea nitrogen [Mass/Vol] 6 mg/dL Normal 4-19 [facility] Comment on above: Performed By: #### L 501.5200 #### [facility] [address] [place], [place], [id number] Carbon dioxide, total [Moles /volume] in Central venous bloodOrdered By: Cristina Salas on 04-22-2025 CO2 [Moles/Vol] 25.3 mmol/L 21.0-32.0 [facility] Chloride assayOrdered By: Marcus Salas on 04-22-2025 Chloride [Moles/Vol] 102 mmol/L 98-108 [facility] Glomerular filtration rate ( GFR) estimation/1.73 sq m using serum, plasma, or whole bOrdered By: Cristina Salas on 04-22-2025 GFR/1.73 sq M.predicted among non-blacks MDRD (S/P/Bld) [Vol rate/Area] 104 mL/min/{1.73_m2} >60 [facility] Comment on above: mL/min/1.73m2 CKD-EP I Creatinine Equation (2020) Magnesiumon 04-22-2025 Magnesium [Mass/Vol] 2.1 mg/dL Normal 1.5-2.2 [facility] Comment on above: Performed By: #### L 501.5200 #### [facility] [address] [place], [place], [id number] Magnesium measurement (mass/ volume)Ordered By: Cristina Salas on 04-22-2025 Magnesium (Unsp spec) [Mass/Vol] 2.1 mg/dL 1.5-2.2 [facility] Phosphoruson 04-22-2025 Phosphate [Mass/Vol] 3.4 mg/dL Normal 2.7-4.5 [facility] Comment on above: Performed By: #### L 501.5200 #### [facility] [place], [address] Potassium measurement (mass/ volume)Ordered By: Cristina Salas on 04-22-2025 Potassium (Unsp spec) [Mass/Vol] 4.1 mmol/L 3.3-5.1 [facility] Comment on above: Hemolysis present, R esults could be affected. Serum creatinine measurement (mass/volume)Ordered By: Cristina Salas on 04-22-2025 Creatinine [Mass/Vol] 0.79 mg/dL 0.70-1.20 [facility] Serum glucose measurement (m ass/volume)Ordered By: Cristina Salas on 04-22-2025 Glucose [Mass/Vol] 104 mg/dL High 70-99 [facility] Serum or plasma calcium che urement (mass/volume)Ordered By: Cristina Salas on 04-22-2025 Calcium [Mass/Vol] 9.1 mg/dL 7.6-11.0 [facility] Serum or plasma urea nitroge n measurement (mass/volume)Ordered By: Cristina Salas on 04-22-2025 Urea nitrogen [Mass/Vol] 6 mg/dL 4-19 [facility] Sodium levelOrdered By: Samantha Salas on 04-22-2025 Sodium [Moles/Vol] 138 mmol/L 133-145 [facility] Absolute lymphocyte countOrd ered By: Umang Mckoy on 04-21-2025 Lymphocytes Auto (Unsp spec) [#/Vol] 1.57 10*3/uL 0.83-4.51 [facility] Absolute neutrophil countOrd ered By: Umang Mckoy on 04-21-2025 Neutrophils (Bld) [#/Vol] 4.0 10*3/uL 2.0-7.7 [facility] Automated lymphocyte count a s percentage of total leukocytesOrdered By: Umang Mckoy on 04-21-2025 Lymphocytes/100 WBC Auto (Unsp spec) 23.3 % 19-41 [facility] Basophil percentageOrdered B y: Umang Mckoy on 04-21-2025 Basophils/100 WBC (Bld) 0.9 % 0-1 [facility] Bilirubin, totalOrdered By: Umang Mckoy on 04-21-2025 Bilirubin [Mass/Vol] 0.73 mg/dL 0.00-1.30 [facility] CBC W/Diff, Automatedon Absolute Lymph 1.57 X10 3/uL Normal 0.83-4.51 [facility] Comment on above: Performed By: #### L 100.0100, L501.9520, L300.3900, L500.4050, L501.2300 #### [facility] [address] [place], [address] Absolute Neut 4.0 X10 3/uL Normal 2.0-7.7 [facility] Comment on above: Performed By: #### L 100.0100, L501.9520, L300.3900, L500.4050, L501.2300 #### [facility] [address] [place], [address] Basophils/100 WBC (Bld) 0.9 % Normal 0-1 [facility] Comment on above: Performed By: #### L 100.0100, L501.9520, L300.3900, L500.4050, L501.2300 #### [facility] [address] [place], [address] Eosinophils/100 WBC (Bld) 9.2 % High 0-5 [facility] Comment on above: Performed By: #### L 100.0100, L501.9520, L300.3900, L500.4050, L501.2300 #### [facility] [address] [place], [address] Erythrocyte distribution width (RBC) [Ratio] 12.6 % Normal 11.6-14.6 [facility] Comment on above: Performed By: #### L 100.0100, L501.9520, L300.3900, L500.4050, L501.2300 #### [facility] [address] [place], [address] Hematocrit (Bld) [Volume fraction] 40.2 % Normal 40-54 [facility] Comment on above: Performed By: #### L 100.0100, L501.9520, L300.3900, L500.4050, L501.2300 #### [facility] [address] [place], [address] Hemoglobin (Bld) [Mass/Vol] 13.8 g/dL Normal 13.0-16.5 [facility] Comment on above: Performed By: #### L 100.0100, L501.9520, L300.3900, L500.4050, L501.2300 #### [facility] [address] [place], [address] IG% 0.400 Normal 0.0-0.9 [facility] Comment on above: Result Comment: IG% - Immature Granulocytes (promyelocytes, myelocytes and metamyelocytes) > 1% indicates that a LEFT SHIFT is Present. Performed By: #### L 100.0100, L501.9520, L300.3900, L500.4050, L501.2300 #### [facility] [address] [place], [address] Lymphocytes/100 WBC (Bld) 23.3 % Normal 19-41 [facility] Comment on above: Performed By: #### L 100.0100, L501.9520, L300.3900, L500.4050, L501.2300 #### [facility] [address] [place], [address] MCH (RBC) [Entitic mass] 31.0 pg Normal 27.0-32.0 [facility] Comment on above: Performed By: #### L 100.0100, L501.9520, L300.3900, L500.4050, L501.2300 #### [facility] [address] [place], [address] MCHC (RBC) [Mass/Vol] 34.3 g/dL Normal 32-36 [facility] Comment on above: Performed By: #### L 100.0100, L501.9520, L300.3900, L500.4050, L501.2300 #### [facility] [address] [place], [address] MCV (RBC) [Entitic vol] 90.3 fL Normal 80-94 [facility] Comment on above: Performed By: #### L 100.0100, L501.9520, L300.3900, L500.4050, L501.2300 #### [facility] [address] [place], [address] Monocytes/100 WBC (Bld) 7.0 % Normal 0-10 [facility] Comment on above: Performed By: #### L 100.0100, L501.9520, L300.3900, L500.4050, L501.2300 #### [facility] [address] [place], [address] Neutrophils/100 WBC (Bld) 59.2 % Normal 47-70 [facility] Comment on above: Performed By: #### L 100.0100, L501.9520, L300.3900, L500.4050, L501.2300 #### [facility] [address] [place], [address] Nucleated RBC (Bld) [#/Vol] 0 10*3/uL Normal 0-5 [facility] Comment on above: Performed By: #### L 100.0100, L501.9520, L300.3900, L500.4050, L501.2300 #### [facility] [address] [place], [address] Platelet mean volume (Bld) [Entitic vol] 9.1 fL Normal 6.2-12.0 [facility] Comment on above: Performed By: #### L 100.0100, L501.9520, L300.3900, L500.4050, L501.2300 #### [facility] [address] [place], [address] Platelets (Bld) [#/Vol] 207 10*3/uL Normal 150-450 [facility] Comment on above: Performed By: #### L 100.0100, L501.9520, L300.3900, L500.4050, L501.2300 #### [facility] [address] [place], [address] RBC (Bld) [#/Vol] 4.45 10*6/uL Low 4.6-6.2 [facility] Comment on above: Performed By: #### L 100.0100, L501.9520, L300.3900, L500.4050, L501.2300 #### [facility] [address] [place], [address] RDW SD 41.6 fl Normal 35.1-43.9 [facility] Comment on above: Performed By: #### L 100.0100, L501.9520, L300.3900, L500.4050, L501.2300 #### [facility] [address] [place], [address] WBC (Bld) [#/Vol] 6.8 10*3/uL Normal 4.4-11.0 [facility] Comment on above: Performed By: #### L 100.0100, L501.9520, L300.3900, L500.4050, L501.2300 #### [facility] [address] [place], [address] Comprehensive Metabolic Prof linus 04-21-2025 Albumin [Mass/Vol] 3.8 g/dL Normal 3.5-5.0 [facility] Comment on above: Performed By: #### L 100.0100, L501.9520, L300.3900, L500.4050, L501.2300 #### [facility] [address] [place], [address] Albumin/Globulin [Mass ratio] 1.4 {ratio} Normal 0.9-2.4 [facility] Comment on above: Performed By: #### L 100.0100, L501.9520, L300.3900, L500.4050, L501.2300 #### [facility] [address] [place], [address] ALK PHOS 124 U/L Normal 40-129 [facility] Comment on above: Performed By: #### L 100.0100, L501.9520, L300.3900, L500.4050, L501.2300 #### [facility] [address] [place], [address] ALT [Catalytic activity/Vol] 84 U/L High <=46 [facility] Comment on above: Performed By: #### L 100.0100, L501.9520, L300.3900, L500.4050, L501.2300 #### [facility] [address] [place], [address] AST [Catalytic activity/Vol] 96 U/L High <=37 [facility] Comment on above: Performed By: #### L 100.0100, L501.9520, L300.3900, L500.4050, L501.2300 #### [facility] [address] [place], [address] Bilirubin [Mass/Vol] 0.73 mg/dL Normal 0.00-1.30 [facility] Comment on above: Performed By: #### L 100.0100, L501.9520, L300.3900, L500.4050, L501.2300 #### [facility] [address] [place], [address] BUN/CRE 12.2 RATIO Normal 10-20 [facility] Comment on above: Performed By: #### L 100.0100, L501.9520, L300.3900, L500.4050, L501.2300 #### [facility] [address] [place], [address] Calcium [Mass/Vol] 8.8 mg/dL Normal 7.6-11.0 [facility] Comment on above: Performed By: #### L 100.0100, L501.9520, L300.3900, L500.4050, L501.2300 #### [facility] [address] [place], [address] Chloride [Moles/Vol] 104 mmol/L Normal 98-108 [facility] Comment on above: Performed By: #### L 100.0100, L501.9520, L300.3900, L500.4050, L501.2300 #### [facility] [address] [place], [address] CO2 [Moles/Vol] 21.0 mmol/L Normal 21.0-32.0 [facility] Comment on above: Performed By: #### L 100.0100, L501.9520, L300.3900, L500.4050, L501.2300 #### [facility] [address] [place], [address] Creatinine [Mass/Vol] 0.73 mg/dL Normal 0.70-1.20 [facility] Comment on above: Performed By: #### L 100.0100, L501.9520, L300.3900, L500.4050, L501.2300 #### [facility] [address] [place], [address] ECRCL 141.79 ml/min Normal 50-250 [facility] Comment on above: Performed By: #### L 100.0100, L501.9520, L300.3900, L500.4050, L501.2300 #### [facility] [address] [place], [address] GAP 13 Normal 5-15 [facility] Comment on above: Performed By: #### L 100.0100, L501.9520, L300.3900, L500.4050, L501.2300 #### [facility] [address] [place], [address] GFR/1.73 sq M.predicted among non-blacks MDRD (S/P/Bld) [Vol rate/Area] 107 mL/min/{1.73_m2} Normal >60 [facility] Comment on above: Result Comment: mL/m in/1.73m2 CKD-EPI Creatinine Equation (2020) Performed By: #### L 100.0100, L501.9520, L300.3900, L500.4050, L501.2300 #### [facility] [address] [place], [address] Globulin (S) [Mass/Vol] 2.7 g/dL Normal 2.2-4.2 [facility] Comment on above: Performed By: #### L 100.0100, L501.9520, L300.3900, L500.4050, L501.2300 #### [facility] [address] [place], [address] Glucose [Mass/Vol] 97 mg/dL Normal 70-99 [facility] Comment on above: Performed By: #### L 100.0100, L501.9520, L300.3900, L500.4050, L501.2300 #### [facility] [address] [place], [address] Potassium [Moles/Vol] 3.2 mmol/L Low 3.3-5.1 [facility] Comment on above: Performed By: #### L 100.0100, L501.9520, L300.3900, L500.4050, L501.2300 #### [facility] [address] [place], [address] Sodium [Moles/Vol] 138 mmol/L Normal 133-145 [facility] Comment on above: Performed By: #### L 100.0100, L501.9520, L300.3900, L500.4050, L501.2300 #### [facility] [address] [place], [address] T PROT 6.5 g/dL Normal 5.9-8.4 [facility] Comment on above: Performed By: #### L 100.0100, L501.9520, L300.3900, L500.4050, L501.2300 #### [facility] [address] [place], [address] Urea nitrogen [Mass/Vol] 9 mg/dL Normal 4-19 [facility] Comment on above: Performed By: #### L 100.0100, L501.9520, L300.3900, L500.4050, L501.2300 #### [facility] [address] [place], [address] Eosinophil percentageOrdered By: Umang Mckoy on 04-21-2025 Eosinophils/100 WBC (Bld) 9.2 % High 0-5 [facility] Erythrocyte distribution wid th ratioOrdered By: Umang Mckoy on 04-21-2025 Erythrocyte distribution width (RBC) [Ratio] 12.6 % 11.6-14.6 [facility] Erythrocyte distribution wid th standard deviationOrdered By: Umang Mckoy on 04-21-2025 Erythrocyte distribution width (RBC) [Ratio] 41.6 fl 35.1-43.9 [facility] Hematocrit Auto (Bld) [Volum e fraction]Ordered By: Umang Mckoy on 04-21-2025 Hematocrit (Bld) [Volume fraction] 40.2 % 40-54 [facility] Hemoglobin measurementOrdere d By: Umang Mckoy on 04-21-2025 Hemoglobin (Bld) [Mass/Vol] 13.8 g/dL 13.0-16.5 [facility] Immature granulocytes/100 WB C Auto (Bld)Ordered By: Umang Mckoy on 04-21-2025 Immature granulocytes/100 WBC (Bld) 0.400 % 0.0-0.9 [facility] Comment on above: IG% - Immature Granu locytes (promyelocytes, myelocytes and metamyelocytes) > 1% indicates that a LEFT SHIFT is Present. International normalized rat io (INR) calculationOrdered By: Umang Mckoy on 04-21-2025 INR Coag (Bld) [Relative time] 1.1 {INR} [facility] - Chemistry and C hemistry - challengeOrdered By: Umang Mckoy on 04-21-2025 AST [Catalytic activity/Vol] 96 U/L High <38 [facility] MCV (mean corpuscular volume ) determinationOrdered By: Umang Mckoy on 04-21-2025 MCV (RBC) [Entitic vol] 90.3 fL 80-94 [facility] Mean corpuscular hemoglobin (MCH) determinationOrdered By: Umang Mckoy on 04-21-2025 MCH (RBC) [Entitic mass] 31.0 pg 27.0-32.0 [facility] Mean corpuscular hemoglobin concentration (MCHC) determinationOrdered By: Umang Mckoy on 04-21-2025 MCHC (RBC) [Mass/Vol] 34.3 g/dL 32-36 [facility] Mean platelet volume determi nationOrdered By: Umang Mckoy on 04-21-2025 Platelet mean volume (Bld) [Entitic vol] 9.1 fL 6.2-12.0 [facility] Monocyte percentageOrdered B y: Umang Mckoy on 08-03-2025 Monocytes/100 WBC (Bld) 7.0 % 0-10 [facility] Neutrophil percentageOrdered By: Umang Mckoy on 04-21-2025 Neutrophils/100 WBC (Bld) 59.2 % 47-70 [facility] Nucleated red blood cell per centageOrdered By: Umang Mckoy on 04-21-2025 Nucleated RBC/100 WBC (Bld) [Ratio] 0 % 0-5 [facility] Phosphoruson 04-21-2025 Phosphate [Mass/Vol] 4.5 mg/dL Normal 2.7-4.5 [facility] Comment on above: Performed By: #### L 300.3900 #### [facility] [address] [place], [address] Platelet countOrdered By: Norman Mckoy on 04-21-2025 Platelets (Bld) [#/Vol] 207 10*3/uL 150-450 [facility] Prothrombin Time w/INRon INR Coag (PPP) [Relative time] 1.1 {INR} Normal [facility] Comment on above: Performed By: #### L 100.0100, L501.9520, L300.3900, L500.4050, L501.2300 #### [facility] [address] [place], [address] PT Coag (PPP) [Time] 14.2 s Normal 11.7-14.9 [facility] Comment on above: Performed By: #### L 100.0100, L501.9520, L300.3900, L500.4050, L501.2300 #### [facility] [address] [place], [address] Prothrombin timeOrdered By: Umang Mckoy on 04-21-2025 PT Coag (PPP) [Time] 14.2 s 11.7-14.9 [facility] RBC Auto (Bld) [#/Vol]Ordere d By: Umang Mckoy on 04-21-2025 RBC (Bld) [#/Vol] 4.45 10*6/uL Low 4.6-6.2 [facility] Serum globulin measurementOr dered By: Umang Mckoy on 04-21-2025 Globulin (S) [Mass/Vol] 2.7 g/dL 2.2-4.2 [facility] Serum or plasma alanine davidson otransferase (ALT) measurementOrdered By: Umang Mckoy on 04-21-2025 ALT [Catalytic activity/Vol] 84 U/L High <47 [facility] Serum or plasma albumin che urement (mass/volume)Ordered By: Umang Mckoy on 04-21-2025 Albumin [Mass/Vol] 3.8 g/dL 3.5-5.0 [facility] Serum or plasma albumin/glob ulin mass ratioOrdered By: Umang Mckoy on 04-21-2025 Albumin/Globulin [Mass ratio] 1.4 {ratio} 0.9-2.4 [facility] Serum or plasma alkaline salma sphatase measurementOrdered By: Umang Mckoy on 04-21-2025 ALP [Catalytic activity/Vol] 124 U/L 40-129 [facility] TSH DL <= 0.005 mIU/L QnOrde red By: Umang Mckoy on 04-21-2025 TSH Qn 4.140 uIU/mL 0.300-4.200 [facility] Thyroid Stim Hormone (TSH)on 04-21-2025 TSH 4.140 uIU/mL Normal 0.300-4.200 [facility] Comment on above: Performed By: #### L 300.3900 #### [facility] [address] [place], [address] Total proteinOrdered By: Andrei Mckoy on 04-21-2025 Protein [Mass/Vol] 6.5 g/dL 5.9-8.4 [facility] Urine Drug Screen (VISTA)on 04-21-2025 AMPHETAMINES Negative Normal <1000 ng/mL [facility] Comment on above: Performed By: #### L 100.0100, L501.9100, L505.5000 #### [facility] [address] [place], [address] BARBITIURATES Negative Normal < 200 ng/mL [facility] Comment on above: Performed By: #### L 100.0100, L501.9100, L505.5000 #### [facility] [address] [place], [address] BENZODIAZIPINE Negative Normal < 200 ng/mL [facility] Comment on above: Performed By: #### L 100.0100, L501.9100, L505.5000 #### [facility] [address] [place], [address] BUP Ur Drug Scr Negative Normal < 200 ng/mL [facility] Comment on above: Performed By: #### L 100.0100, L501.9100, L505.5000 #### [facility] [address] [place], [address] COCAINE Negative Normal < 300 ng/mL [facility] Comment on above: Performed By: #### L 100.0100, L501.9100, L505.5000 #### [facility] [address] [place], [address] Fentanyl Negative Normal [facility] Comment on above: Performed By: #### L 100.0100, L501.9100, L505.5000 #### [facility] [address] [place], [address] METHADONE Negative Normal < 300 ng/mL [facility] Comment on above: Performed By: #### L 100.0100, L501.9100, L505.5000 #### [facility] [address] [place], [address] OPIATES Negative Normal < 300 ng/mL [facility] Comment on above: Performed By: #### L 100.0100, L501.9100, L505.5000 #### [facility] [address] [place], [address] OXYCODONE Negative Normal < 100 ng/mL [facility] Comment on above: Performed By: #### L 100.0100, L501.9100, L505.5000 #### [facility] [address] [place], [address] PCP Negative Normal < 25 ng/mL [facility] Comment on above: Performed By: #### L 100.0100, L501.9100, L505.5000 #### [facility] [address] [place], [address] THC Negative Normal < 50 ng/mL [facility] Comment on above: Performed By: #### L 100.0100, L501.9100, L505.5000 #### [facility] [address] [place], [address] White blood cell (WBC) count Ordered By: Umang Mckoy on 04-21-2025 WBC (Bld) [#/Vol] 6.8 10*3/uL 4.4-11.0 [facility] Absolute lymphocyte countOrd ered By: Lucretia Hunter on 04-20-2025 Lymphocytes Auto (Unsp spec) [#/Vol] 2.01 10*3/uL 0.83-4.51 [facility] Absolute neutrophil countOrd ered By: Lucretia Hunter on 04-20-2025 Neutrophils (Bld) [#/Vol] 6.3 10*3/uL 2.0-7.7 [facility] Alcohol, Blood (Medical)-Ser umon 04-20-2025 SERUM ETOH 124.0 mg/dL High <=10.0 [facility] Comment on above: Result Comment: This test is for medical purposes only. The legal definition of intoxication varies according to local law. Performed By: #### L 501.5200 #### [facility] [address] [place], [address] Amphetamine detection with 1 000 ng/mL as cutoffOrdered By: Lucretia Hunter on 04-20-2025 Amphetamines Screen method >1000 ng/mL Ql (U) Negative < 200 ng/mL [facility] Anion gap in Serum or Plasma Ordered By: Lucretia Hunter on 04-20-2025 Anion gap [Moles/Vol] 15 mmol/L 5-15 [facility] Automated lymphocyte count a s percentage of total leukocytesOrdered By: Lucretia Hunter on 04-20-2025 Lymphocytes/100 WBC Auto (Unsp spec) 20.1 % 19-41 [facility] BUN/creatinine ratioOrdered By: Lucretia Hunter on 04-20-2025 Urea nitrogen/Creatinine [Mass ratio] 9.5 mg/mg Low 10-20 [facility] Basophil percentageOrdered B y: Lucretia Hunter on 04-20-2025 Basophils/100 WBC (Bld) 1.3 % High 0-1 [facility] Bilirubin, totalOrdered By: Lucretia Hunter on 04-20-2025 Bilirubin [Mass/Vol] 0.80 mg/dL Normal 0.00-1.30 [facility] Comment on above: Performed By: #### L 100.0100, L501.9100, L505.5000 #### [facility] [address] [place], [address] CBC W/Diff, Automatedon Absolute Lymph 2.01 X10 3/uL Normal 0.83-4.51 [facility] Comment on above: Performed By: #### L 100.5200 #### [facility] [address] [place], [address] Absolute Neut 6.3 X10 3/uL Normal 2.0-7.7 [facility] Comment on above: Performed By: #### L 501.5200 #### [facility] [address] [place], [address] Basophils/100 WBC (Bld) 1.3 % High 0-1 [facility] Comment on above: Performed By: #### L 501.5200 #### [facility] [address] [place], [address] Eosinophils/100 WBC (Bld) 8.9 % High 0-5 [facility] Comment on above: Performed By: #### L 501.5200 #### [facility] [address] [place], [address] Erythrocyte distribution width (RBC) [Ratio] 12.7 % Normal 11.6-14.6 [facility] Comment on above: Performed By: #### L 501.5200 #### [facility] [address] [place], [address] Hematocrit (Bld) [Volume fraction] 43.5 % Normal 40-54 [facility] Comment on above: Performed By: #### L 501.5200 #### [facility] [address] [place], [address] Hemoglobin (Bld) [Mass/Vol] 14.9 g/dL Normal 13.0-16.5 [facility] Comment on above: Performed By: #### L 501.5200 #### [facility] [address] [place], [address] IG% 0.400 Normal 0.0-0.9 [facility] Comment on above: Result Comment: IG% - Immature Granulocytes (promyelocytes, myelocytes and metamyelocytes) > 1% indicates that a LEFT SHIFT is Present. Performed By: #### L 501.5200 #### [facility] [address] [place], [address] Lymphocytes/100 WBC (Bld) 20.1 % Normal 19-41 [facility] Comment on above: Performed By: #### L 501.5200 #### [facility] [address] [place], [address] MCH (RBC) [Entitic mass] 30.8 pg Normal 27.0-32.0 [facility] Comment on above: Performed By: #### L 501.5200 #### [facility] [address] [place], [address] MCHC (RBC) [Mass/Vol] 34.3 g/dL Normal 32-36 [facility] Comment on above: Performed By: #### L 501.5200 #### [facility] [address] [place], [address] MCV (RBC) [Entitic vol] 90.1 fL Normal 80-94 [facility] Comment on above: Performed By: #### L 501.5200 #### [facility] [address] [place], [address] Monocytes/100 WBC (Bld) 6.3 % Normal 0-10 [facility] Comment on above: Performed By: #### L 501.5200 #### [facility] [address] [place], [address] Neutrophils/100 WBC (Bld) 63.0 % Normal 47-70 [facility] Comment on above: Performed By: #### L 501.5200 #### [facility] [address] [place], [address] Nucleated RBC (Bld) [#/Vol] 0 10*3/uL Normal 0-5 [facility] Comment on above: Performed By: #### L 501.5200 #### [facility] [address] [place], [address] Platelet mean volume (Bld) [Entitic vol] 9.0 fL Normal 6.2-12.0 [facility] Comment on above: Performed By: #### L 501.5200 #### [facility] [address] [place], [address] Platelets (Bld) [#/Vol] 249 10*3/uL Normal 150-450 [facility] Comment on above: Performed By: #### L 501.5200 #### [facility] [address] [place], [address] RBC (Bld) [#/Vol] 4.83 10*6/uL Normal 4.6-6.2 [facility] Comment on above: Performed By: #### L 501.5200 #### [facility] [address] [place], [address] RDW SD 42.0 fl Normal 35.1-43.9 [facility] Comment on above: Performed By: #### L 501.5200 #### [facility] [address] [place], [address] WBC (Bld) [#/Vol] 10.0 10*3/uL Normal 4.4-11.0 [facility] Comment on above: Performed By: #### L 501.5200 #### [facility] [address] [place], [address] Carbon dioxide, total [Moles /volume] in Central venous bloodOrdered By: Lucretia Hunter on 04-20-2025 CO2 [Moles/Vol] 25.6 mmol/L Normal 21.0-32.0 [facility] Comment on above: Performed By: #### L 100.0100, L501.9100, L505.5000 #### [facility] [address] [place], [address] Chloride assayOrdered By: Lynda Hunter on 04-20-2025 Chloride [Moles/Vol] 99 mmol/L Normal 98-108 [facility] Comment on above: Performed By: #### L 100.0100, L501.9100, L505.5000 #### [facility] [address] [place], [address] Comprehensive Metabolic Prof ilon 04-20-2025 ALK PHOS 130 U/L High 40-129 [facility] Comment on above: Performed By: #### L 100.0100, L501.9100, L505.5000 #### [facility] [address] [place], [address] BUN/CRE 9.5 RATIO Low 10-20 [facility] Comment on above: Performed By: #### L 100.0100, L501.9100, L505.5000 #### [facility] [address] [place], [address] ECRCL 96.71 ml/min Normal 50-250 [facility] Comment on above: Performed By: #### L 100.0100, L501.9100, L505.5000 #### [facility] [address] [place], [address] GAP 15 Normal 5-15 [facility] Comment on above: Performed By: #### L 100.0100, L501.9100, L505.5000 #### [facility] [address] [place], [address] Potassium [Moles/Vol] 3.6 mmol/L Normal 3.3-5.1 [facility] Comment on above: Performed By: #### L 100.0100, L501.9100, L505.5000 #### [facility] [address] [place], [address] T PROT 7.7 g/dL Normal 5.9-8.4 [facility] Comment on above: Performed By: #### L 100.0100, L501.9100, L505.5000 #### [facility] [address] [place], [address] Comprehensive Metabolic Prof ilOrdered By: Lucretia Hunter on 04-20-2025 AST [Catalytic activity/Vol] 117 U/L High <=37 [facility] Comment on above: Performed By: #### L 100.0100, L501.9100, L505.5000 #### [facility] [address] [place], [address] Emergency Department Summary on 04-20-2025 Emergency Department Summary [facility] Medical Records Department [address] [place] [address] Emergency Department Summary 04/20/25 MR#: [id number] Acct: [id number] Name: SLOAN HARVEY Rep #: [id number] : 1970 55 From: Lucretia LEE PCP: [...] this evening, he is not currently withdrawing. [facility] Medical History Polysubstance abuse Anxiety Depression [...] starts drinki (more content not included)... Normal [facility] Eosinophil percentageOrdered By: Lucretia Hunter on 04-20-2025 Eosinophils/100 WBC (Bld) 8.9 % High 0-5 [facility] Erythrocyte distribution wid th ratioOrdered By: [facility] on 04-20-2025 Erythrocyte distribution width (RBC) [Ratio] 12.7 % 11.6-14.6 [facility] Erythrocyte distribution wid th standard deviationOrdered By: Lucretiakrista Hunter on 04-20-2025 Erythrocyte distribution width (RBC) [Ratio] 42.0 fl 35.1-43.9 [facility] Glomerular filtration rate ( GFR) estimation/1.73 sq m using serum, plasma, or whole bOrdered By: Lucretia Hunter on 04-20-2025 GFR/1.73 sq M.predicted among non-blacks MDRD (S/P/Bld) [Vol rate/Area] 81 mL/min/{1.73_m2} Normal >60 [facility] Comment on above: mL/min/1.73m2 CKD-EP I Creatinine Equation (2020) Result Comment: mL/m in/1.73m2 CKD-EPI Creatinine Equation (2020) Performed By: #### L 100.0100, L501.9100, L505.5000 #### [facility] [address] [place], [address] H AND P Exam - Hospitaliston 04-20-2025 H&P Exam - Hospitalist [facility] Medical Records Department [address] [place] [address] H P Exam - Hospitalist 04/20/256 MR#: [id number] Acct: [id number] Name: SLOAN HARVEY Rep #: [id number] : 1970 55 From: Umang Arias DO PCP: Dr. Peggy Nicole DO Status:ADM IN Location: MS3 BR009-5 [facility] - General General Date of Admission: 04/20/25 [...] treatment of EtOH detox who re-presents to [facility] ER once again requesting EtOH detox. [...] is expected to extend beyond 2 midnights. [facility] Medical History Polysubstance abuse Anxiety [...] muscles an (more content not included)... Normal [facility] Hematocrit Auto (Bld) [Volum e fraction]Ordered By: Lucretia Hunter on 04-20-2025 Hematocrit (Bld) [Volume fraction] 43.5 % 40-54 [facility] Hemoglobin measurementOrdere d By: Lucretia Hunter on 04-20-2025 Hemoglobin (Bld) [Mass/Vol] 14.9 g/dL 13.0-16.5 [facility] Immature granulocytes/100 WB C Auto (Bld)Ordered By: Lucretia Hunter on 04-20-2025 Immature granulocytes/100 WBC (Bld) 0.400 % 0.0-0.9 [facility] Comment on above: IG% - Immature Granu locytes (promyelocytes, myelocytes and metamyelocytes) > 1% indicates that a LEFT SHIFT is Present. MCV (mean corpuscular volume ) determinationOrdered By: Lucretia Hunter on 04-20-2025 MCV (RBC) [Entitic vol] 90.1 fL 80-94 [facility] Magnesiumon 04-20-2025 Magnesium [Mass/Vol] 1.9 mg/dL Normal 1.5-2.2 [facility] Comment on above: Performed By: #### L 501.5200 #### [facility] [address] [place] [address], [address] Magnesium measurement (mass/ volume)Ordered By: Umang Mckoy on 04-20-2025 Magnesium (Unsp spec) [Mass/Vol] 1.9 mg/dL 1.5-2.2 [facility] Mean corpuscular hemoglobin (MCH) determinationOrdered By: Lucretia Hunter on 04-20-2025 MCH (RBC) [Entitic mass] 30.8 pg 27.0-32.0 [facility] Mean corpuscular hemoglobin concentration (MCHC) determinationOrdered By: Lucretia Hunter on 04-20-2025 MCHC (RBC) [Mass/Vol] 34.3 g/dL 32-36 [facility] Mean platelet volume determi nationOrdered By: Lucretia Hunter on 04-20-2025 Platelet mean volume (Bld) [Entitic vol] 9.0 fL 6.2-12.0 [facility] Monocyte percentageOrdered B y: Lucretia Hunter on 04-20-2025 Monocytes/100 WBC (Bld) 6.3 % 0-10 [facility] Neutrophil percentageOrdered By: Lucretia Hunter on 04-20-2025 Neutrophils/100 WBC (Bld) 63.0 % 47-70 [facility] No Panel InformationOrdered By: Lucretia Hunter on 04-20-2025 Urine Buprenorphine Qualitative Negative < 200 ng/mL [facility] Urine Oxycodone Screen Negative < 100 ng/mL [facility] Nucleated red blood cell per centageOrdered By: Lucretia Hunter on 04-20-2025 Nucleated RBC/100 WBC (Bld) [Ratio] 0 % 0-5 [facility] Platelet countOrdered By: Lynda Hunter on 04-20-2025 Platelets (Bld) [#/Vol] 249 10*3/uL 150-450 [facility] Potassium measurement (mass/ volume)Ordered By: Lucretia Hunter on 04-20-2025 Potassium (Unsp spec) [Mass/Vol] 3.6 mmol/L 3.3-5.1 [facility] Quantitative urine opiates m easurementOrdered By: Lucretia Hunter on 04-20-2025 Opiates Ql (U) Negative < 300 ng/mL [facility] RBC Auto (Bld) [#/Vol]Ordere d By: Lucretia Hunter on 04-20-2025 RBC (Bld) [#/Vol] 4.83 10*6/uL 4.6-6.2 [facility] Screening urine fentanyl angela surementOrdered By: Lucretia Hunter on 04-20-2025 fentaNYL Screen Ql (U) Negative [facility] Serum creatinine measurement (mass/volume)Ordered By: Lucretia Hunter on 04-20-2025 Creatinine [Mass/Vol] 1.07 mg/dL Normal 0.70-1.20 [facility] Comment on above: Performed By: #### L 100.0100, L501.9100, L505.5000 #### [facility] [address] [place], [address] Serum globulin measurementOr dered By: Lucretia Hunter on 04-20-2025 Globulin (S) [Mass/Vol] 3.2 g/dL Normal 2.2-4.2 [facility] Comment on above: Performed By: #### L 100.0100, L501.9100, L505.5000 #### [facility] [address] [place], [address] Serum glucose measurement (m ass/volume)Ordered By: Lucretia Hunter on 04-20-2025 Glucose [Mass/Vol] 117 mg/dL High 70-99 [facility] Comment on above: Performed By: #### L 100.0100, L501.9100, L505.5000 #### [facility] [address] [place], [address] Serum or plasma alanine davidson otransferase (ALT) measurementOrdered By: Lucretia Hunter on 04-20-2025 ALT [Catalytic activity/Vol] 99 U/L High <=46 [facility] Comment on above: Performed By: #### L 100.0100, L501.9100, L505.5000 #### [facility] [address] [place], [address] Serum or plasma albumin che urement (mass/volume)Ordered By: Lucretia Hunter on 04-20-2025 Albumin [Mass/Vol] 4.5 g/dL Normal 3.5-5.0 [facility] Comment on above: Performed By: #### L 100.0100, L501.9100, L505.5000 #### [facility] [address] [place], [address] Serum or plasma albumin/glob ulin mass ratioOrdered By: Lucretia Hunter on 08-02-2025 Albumin/Globulin [Mass ratio] 1.4 {ratio} Normal 0.9-2.4 [facility] Comment on above: Performed By: #### L 100.0100, L501.9100, L505.5000 #### [facility] [address] [place], [address] Serum or plasma alkaline salma sphatase measurementOrdered By: Lucretia Hunter on 04-20-2025 ALP [Catalytic activity/Vol] 130 U/L High 40-129 [facility] Serum or plasma calcium che urement (mass/volume)Ordered By: Lucretia Hunter on 04-20-2025 Calcium [Mass/Vol] 9.5 mg/dL Normal 7.6-11.0 [facility] Comment on above: Performed By: #### L 100.0100, L501.9100, L505.5000 #### [facility] [address] [place], [address] Serum or plasma ethanol che urement (mass/volume)Ordered By: Lucretia Hunter on 04-20-2025 Ethanol [Mass/Vol] 124.0 mg/dL High <10.1 [facility] Comment on above: This test is for med ical purposes only. The legal definition of intoxication varies according to local law. Serum or plasma urea nitroge n measurement (mass/volume)Ordered By: Lucretia Hunter on 04-20-2025 Urea nitrogen [Mass/Vol] 10 mg/dL Normal 4-19 [facility] Comment on above: Performed By: #### L 100.0100, L501.9100, L505.5000 #### [facility] [address] [place], [address] Sodium levelOrdered By: Ulises Hunter on 04-20-2025 Sodium [Moles/Vol] 139 mmol/L Normal 133-145 [facility] Comment on above: Performed By: #### L 100.0100, L501.9100, L505.5000 #### [facility] [address] [place], [address] Total proteinOrdered By: Guzman maki Hunter on 04-20-2025 Protein [Mass/Vol] 7.7 g/dL 5.9-8.4 [facility] Urine benzodiazepine levelOr dered By: Lucretiastephen Hunter on 04-20-2025 Benzodiazepines Ql (U) Negative < 200 ng/mL [facility] Urine cocaine levelOrdered B y: Lucretia Hunter on 04-20-2025 Cocaine Ql (U) Negative < 300 ng/mL [facility] Urine fpsix-2-hpvqcqjelvggrh abinol (THC) measurementOrdered By: Lucretia Hunter on 04-20-2025 Cannabinoids Screen Ql (U) Negative < 50 ng/mL [facility] Urine phencyclidine (PCP) de tectionOrdered By: Lucretia Hunter on 04-20-2025 Phencyclidine Ql (U) Negative < 25 ng/mL [facility] White blood cell (WBC) count Ordered By: Lucretia Hunter on 04-20-2025 WBC (Bld) [#/Vol] 10.0 10*3/uL 4.4-11.0 [facility] Abdomen Limitedon 02-18-2025 Abdomen Limited [facility] Imaging Services [address] [place], [place] [address] Abdomen Limited MR#: [id number] Acct: [id number] Name: SLOAN HARVEY Rep #: [id number] : 1970 M 55 From: Paramjit Dumont PCP: Dr. Peggy Nicole, DO Status: DIS IN Study: Abdomen Limited Date of Exam: 02/18/25 Exam# [id number] Ordering Dr: Vu Jean MD PROCEDURE: ABDOMEN [...] hepatic steatosis. No acute cholecystitis. Reading Location: [facility] CC: Dr. Peggy Nicole DO; Dr. Vu Jean MD Efficiency Expert: Signed Normal [facility] Anion gap in Serum or Plasma Ordered By: Vu Jean on 02-18-2025 Anion gap [Moles/Vol] 13 mmol/L 5-15 [facility] BUN/creatinine ratioOrdered By: Vu Jean on 02-18-2025 Urea nitrogen/Creatinine [Mass ratio] 11.8 mg/mg 10- [facility] Bilirubin, totalOrdered By: Vu Jean on 02-18-2025 Bilirubin [Mass/Vol] 0.64 mg/dL 0.00-1.30 [facility] Carbon dioxide, total [Moles /volume] in Central venous bloodOrdered By: Vu Jean on 02-18-2025 CO2 [Moles/Vol] 21.6 mmol/L 21.0-32.0 [facility] Chloride assayOrdered By: Debbie Jean on 02-18-2025 Chloride [Moles/Vol] 104 mmol/L 98-108 [facility] Comprehensive Metabolic Prof ilon 02-18-2025 Albumin [Mass/Vol] 4.1 g/dL Normal 3.5-5.0 [facility] Comment on above: Performed By: #### L 100.0100, L501.9100, L505.5000 #### [facility] [address] [place], [address] Albumin/Globulin [Mass ratio] 1.4 {ratio} Normal 0.9-2.4 [facility] Comment on above: Performed By: #### L 100.0100, L501.9100, L505.5000 #### [facility] [address] [place], [address] ALK PHOS 129 U/L Normal 40-129 [facility] Comment on above: Performed By: #### L 100.0100, L501.9100, L505.5000 #### [facility] [address] [place], [address] ALT [Catalytic activity/Vol] 120 U/L High <=46 [facility] Comment on above: Performed By: #### L 100.0100, L501.9100, L505.5000 #### [facility] [address] [place], [address] AST [Catalytic activity/Vol] 132 U/L High <=37 [facility] Comment on above: Performed By: #### L 100.0100, L501.9100, L505.5000 #### [facility] [address] [place], [address] Bilirubin [Mass/Vol] 0.64 mg/dL Normal 0.00-1.30 [facility] Comment on above: Performed By: #### L 100.0100, L501.9100, L505.5000 #### [facility] [address] [place], [address] BUN/CRE 11.8 RATIO Normal 10-20 [facility] Comment on above: Performed By: #### L 100.0100, L501.9100, L505.5000 #### [facility] [address] [place], [address] Calcium [Mass/Vol] 9.4 mg/dL Normal 7.6-11.0 [facility] Comment on above: Performed By: #### L 100.0100, L501.9100, L505.5000 #### [facility] [address] [place], [address] Chloride [Moles/Vol] 104 mmol/L Normal 98-108 [facility] Comment on above: Performed By: #### L 100.0100, L501.9100, L505.5000 #### [facility] [address] [place], [address] CO2 [Moles/Vol] 21.6 mmol/L Normal 21.0-32.0 [facility] Comment on above: Performed By: #### L 100.0100, L501.9100, L505.5000 #### [facility] [address] [place], [address] Creatinine [Mass/Vol] 0.86 mg/dL Normal 0.70-1.20 [facility] Comment on above: Performed By: #### L 100.0100, L501.9100, L505.5000 #### [facility] [address] [place], [address] ECRCL 120.36 ml/min Normal 50-250 [facility] Comment on above: Performed By: #### L 100.0100, L501.9100, L505.5000 #### [facility] [address] [place], [address] GAP 13 Normal 5-15 [facility] Comment on above: Performed By: #### L 100.0100, L501.9100, L505.5000 #### [facility] [address] [place], [address] GFR/1.73 sq M.predicted among non-blacks MDRD (S/P/Bld) [Vol rate/Area] 102 mL/min/{1.73_m2} Normal >60 [facility] Comment on above: Result Comment: mL/m in/1.73m2 CKD-EPI Creatinine Equation (2020) Performed By: #### L 100.0100, L501.9100, L505.5000 #### [facility] [address] [place], [address] Globulin (S) [Mass/Vol] 2.9 g/dL Normal 2.2-4.2 [facility] Comment on above: Performed By: #### L 100.0100, L501.9100, L505.5000 #### [facility] [address] [place], [address] Glucose [Mass/Vol] 105 mg/dL High 70-99 [facility] Comment on above: Performed By: #### L 100.0100, L501.9100, L505.5000 #### [facility] [address] [place], [address] Potassium [Moles/Vol] 3.7 mmol/L Normal 3.3-5.1 [facility] Comment on above: Performed By: #### L 100.0100, L501.9100, L505.5000 #### [facility] [address] [place], [address] Sodium [Moles/Vol] 138 mmol/L Normal 133-145 [facility] Comment on above: Performed By: #### L 100.0100, L501.9100, L505.5000 #### [facility] [address] [place], [address] T PROT 7.0 g/dL Normal 5.9-8.4 [facility] Comment on above: Performed By: #### L 100.0100, L501.9100, L505.5000 #### [facility] [address] [place], [address] Urea nitrogen [Mass/Vol] 10 mg/dL Normal 4-19 [facility] Comment on above: Performed By: #### L 100.0100, L501.9100, L505.5000 #### [facility] [address] [place], [address] Discharge Instructionon 06-0 Discharge Instruction [facility] Medical Records Department [address] [place] [address] Instructions for Home/Discharge Instructions 02/18/25 1059 MR#: [id number] Acct: [id number] Name: SLOAN HARVEY Rep #: [id number] : 1970 55 From: Tammy Cespedes MD [...] DO; Dr. Vu Jean MD Signed Normal [facility] Electrocardiogram reportOrde red By: Blas Bergman on 02-18-2025 EKG study [facility] Cardiovascular Services [address] [place] [address] 12 Lead EKG 02/15/25 1556 MR#: [id number] Acct: [id number] Name: SLOAN HARVEY Rep #:[id number] : 1970 55 From: Blas solitario MD Attending Dr: Dr. Tammy Cespedes MD Status: ADM IN Ordering Dr: Kris Wood DO Date: Location: [facility] Sex: M C Admitted: [...] QT Abnormal ECG Confirmed by Blas Bergman ([id number]), editor index REGINA UGALDE ([id number]) on 02/18/2025 10:49:48 AM Referred By: Kris Wood Confirmed By: Blas Bergman 02/18/25 1049 Date _ Blas Bergman MD CC: Dr. Peggy Nicole DO; Dr. Tammy Cespedes MD; Dr. Kris Wood DO ~ Signed [facility] Other Phone: Glomerular filtration rate ( GFR) estimation/1.73 sq m using serum, plasma, or whole bOrdered By: Vu Jean on 02-18-2025 GFR/1.73 sq M.predicted among non-blacks MDRD (S/P/Bld) [Vol rate/Area] 102 mL/min/{1.73_m2} >60 [facility] Comment on above: mL/min/1.73m2 CKD-EP I Creatinine Equation (2020) Laboratory - Chemistry and C hemistry - challengeOrdered By: Vu Jean on 02-18-2025 AST [Catalytic activity/Vol] 132 U/L High <38 [facility] Potassium measurement (mass/ volume)Ordered By: Vu Jean on 02-18-2025 Potassium (Unsp spec) [Mass/Vol] 3.7 mmol/L 3.3-5.1 [facility] Serum creatinine measurement (mass/volume)Ordered By: Vu Jean on 02-18-2025 Creatinine [Mass/Vol] 0.86 mg/dL 0.70-1.20 [facility] Serum globulin measurementOr dered By: Vu Jean on 02-18-2025 Globulin (S) [Mass/Vol] 2.9 g/dL 2.2-4.2 [facility] Serum glucose measurement (m ass/volume)Ordered By: Vu Jean on 02-18-2025 Glucose [Mass/Vol] 105 mg/dL High 70-99 [facility] Serum or plasma alanine davidson otransferase (ALT) measurementOrdered By: Vu Jean on 02-18-2025 ALT [Catalytic activity/Vol] 120 U/L High <47 [facility] Serum or plasma albumin che urement (mass/volume)Ordered By: Vu Jean on 02-18-2025 Albumin [Mass/Vol] 4.1 g/dL 3.5-5.0 [facility] [facility] or plasma albumin/glob ulin mass ratioOrdered By: Vu Jean on 02-18-2025 Albumin/Globulin [Mass ratio] 1.4 {ratio} 0.9-2.4 [facility] Serum or plasma alkaline salma sphatase measurementOrdered By: Vu Jean on 02-18-2025 ALP [Catalytic activity/Vol] 129 U/L 40-129 [facility] Serum or plasma calcium che urement (mass/volume)Ordered By: Vu Jean on 02-18-2025 Calcium [Mass/Vol] 9.4 mg/dL 7.6-11.0 [facility] Serum or plasma urea nitroge n measurement (mass/volume)Ordered By: Vu Jean on 02-18-2025 Urea nitrogen [Mass/Vol] 10 mg/dL 4-19 [facility] Sodium levelOrdered By: Regina Jean on 02-18-2025 Sodium [Moles/Vol] 138 mmol/L 133-145 [facility] Total proteinOrdered By: Ann Jean on 02-18-2025 Protein [Mass/Vol] 7.0 g/dL 5.9-8.4 [facility] Comprehensive Metabolic Prof ilsincere 02-17-2025 Albumin [Mass/Vol] 4.3 g/dL Normal 3.5-5.0 [facility] Comment on above: Performed By: #### L 500.4050 #### [facility] [address] [place], [address] Albumin/Globulin [Mass ratio] 1.4 {ratio} Normal 0.9-2.4 [facility] Comment on above: Performed By: #### L 500.4050 #### [facility] [address] [place], [address] ALK PHOS 130 U/L High 40-129 [facility] Comment on above: Performed By: #### L 500.4050 #### [facility] [address] [place], [address] ALT [Catalytic activity/Vol] 100 U/L High <=46 [facility] Comment on above: Performed By: #### L 500.4050 #### [facility] [address] [place], [address] AST [Catalytic activity/Vol] 101 U/L High <=37 [facility] Comment on above: Performed By: #### L 500.4050 #### [facility] [address] [place], [address] Bilirubin [Mass/Vol] 0.74 mg/dL Normal 0.00-1.30 [facility] Comment on above: Performed By: #### L 500.4050 #### [facility] [address] [place], [address] BUN/CRE 13.5 RATIO Normal 10-20 [facility] Comment on above: Performed By: #### L 500.4050 #### [facility] [address] [place], [address] Calcium [Mass/Vol] 9.4 mg/dL Normal 7.6-11.0 [facility] Comment on above: Performed By: #### L 500.4050 #### [facility] [address] [place], [address] Chloride [Moles/Vol] 102 mmol/L Normal 98-108 [facility] Comment on above: Performed By: #### L 500.4050 #### [facility] [address] [place], [address] CO2 [Moles/Vol] 25.8 mmol/L Normal 21.0-32.0 [facility] Comment on above: Performed By: #### L 500.4050 #### [facility] [address] [place], [address] Creatinine [Mass/Vol] 0.90 mg/dL Normal 0.70-1.20 [facility] Comment on above: Performed By: #### L 500.4050 #### [facility] [address] [place], [address] ECRCL 115.01 ml/min Normal 50-250 [facility] Comment on above: Performed By: #### L 500.4050 #### [facility] [address] [place], [address] GAP 11 Normal 5-15 [facility] Comment on above: Performed By: #### L 500.4050 #### [facility] [address] [place], [address] GFR/1.73 sq M.predicted among non-blacks MDRD (S/P/Bld) [Vol rate/Area] 100 mL/min/{1.73_m2} Normal >60 [facility] Comment on above: Result Comment: mL/m in/1.73m2 CKD-EPI Creatinine Equation (2020) Performed By: #### L 500.4050 #### [facility] [address] [place], [address] Globulin (S) [Mass/Vol] 3.1 g/dL Normal 2.2-4.2 [facility] Comment on above: Performed By: #### L 500.4050 #### [facility] [address] [place], [address] Glucose [Mass/Vol] 102 mg/dL High 70-99 [facility] Comment on above: Performed By: #### L 500.4050 #### [facility] [address] [place], [address] Potassium [Moles/Vol] 3.9 mmol/L Normal 3.3-5.1 [facility] Comment on above: Performed By: #### L 500.4050 #### [facility] [address] [place], [address] Sodium [Moles/Vol] 139 mmol/L Normal 133-145 [facility] Comment on above: Performed By: #### L 500.4050 #### [facility] [address] [place], [address] T PROT 7.4 g/dL Normal 5.9-8.4 [facility] Comment on above: Performed By: #### L 500.4050 #### [facility] [address] [place], [address] Urea nitrogen [Mass/Vol] 12 mg/dL Normal 4-19 [facility] Comment on above: Performed By: #### L 500.4050 #### [facility] [address] [place], [address] Absolute lymphocyte countOrd ered By: Samantha Leung on 02-16-2025 Lymphocytes Auto (Unsp spec) [#/Vol] 1.34 10*3/uL 0.83-4.51 [facility] Absolute neutrophil countOrd ered By: Samantha Leung on 02-16-2025 Neutrophils (Bld) [#/Vol] 2.7 10*3/uL 2.0-7.7 [facility] Automated lymphocyte count a s percentage of total leukocytesOrdered By: Samantha Leung on 02-16-2025 Lymphocytes/100 WBC Auto (Unsp spec) 27.9 % 19-41 [facility] Basic Metabolic Profile (BMP )on 02-16-2025 BUN/CRE 15.4 RATIO Normal 10-20 [facility] Comment on above: Performed By: #### L 300.3900 #### [facility] [address] [place], [address] Calcium [Mass/Vol] 9.1 mg/dL Normal 7.6-11.0 [facility] Comment on above: Performed By: #### L 300.3900 #### [facility] [address] [place], [address] Chloride [Moles/Vol] 99 mmol/L Normal 98-108 [facility] Comment on above: Performed By: #### L 300.3900 #### [facility] [address] [place], [address] CO2 [Moles/Vol] 25.4 mmol/L Normal 21.0-32.0 [facility] Comment on above: Performed By: #### L 300.3900 #### [facility] [address] [place], [address] Creatinine [Mass/Vol] 0.92 mg/dL Normal 0.70-1.20 [facility] Comment on above: Performed By: #### L 300.3900 #### [facility] [address] [place], [address] ECRCL 112.51 ml/min Normal 50-250 [facility] Comment on above: Performed By: #### L 300.3900 #### [facility] [address] [place], [address] GAP 12 Normal 5-15 [facility] Comment on above: Performed By: #### L 300.3900 #### [facility] [address] [place], [address] GFR/1.73 sq M.predicted among non-blacks MDRD (S/P/Bld) [Vol rate/Area] 98 mL/min/{1.73_m2} Normal >60 [facility] Comment on above: Result Comment: mL/m in/1.73m2 CKD-EPI Creatinine Equation (2020) Performed By: #### L 300.3900 #### [facility] [address] [place], [address] Glucose [Mass/Vol] 95 mg/dL Normal 70-99 [facility] Comment on above: Performed By: #### L 300.3900 #### [facility] [address] [place], [address] Potassium [Moles/Vol] 4.2 mmol/L Normal 3.3-5.1 [facility] Comment on above: Result Comment: Hemo lysis present, Results??could be affected. ?? Performed By: #### L 300.3900 #### [facility] [address] [place], [address] Sodium [Moles/Vol] 137 mmol/L Normal 133-145 [facility] Comment on above: Performed By: #### L 300.3900 #### [facility] [address] [place], [address] Urea nitrogen [Mass/Vol] 14 mg/dL Normal 4-19 [facility] Comment on above: Performed By: #### L 300.3900 #### [facility] [address] [place], [address] Basophil percentageOrdered B y: Samantha Leung on 02-16-2025 Basophils/100 WBC (Bld) 1.0 % 0-1 [facility] Bilirubin directOrdered By: Samantha Leung on 02-16-2025 Bilirubin.direct [Mass/Vol] 0.46 mg/dL High 0.00-0.30 [facility] Comment on above: Hemolysis present, R esults could be affected. CBC W/Diff, Automatedon 05-3 Absolute Lymph 1.34 X10 3/uL Normal 0.83-4.51 [facility] Comment on above: Performed By: #### L 300.3900 #### [facility] [address] [place], [address] Absolute Neut 2.7 X10 3/uL Normal 2.0-7.7 [facility] Comment on above: Performed By: #### L 300.3900 #### [facility] [address] [place], [address] Basophils/100 WBC (Bld) 1.0 % Normal 0-1 [facility] Comment on above: Performed By: #### L 300.3900 #### [facility] [address] [place], [address] Eosinophils/100 WBC (Bld) 3.5 % Normal 0-5 [facility] Comment on above: Performed By: #### L 300.3900 #### [facility] [address] [place], [address] Erythrocyte distribution width (RBC) [Ratio] 12.1 % Normal 11.6-14.6 [facility] Comment on above: Performed By: #### L 300.3900 #### [facility] [address] [place], [address] Hematocrit (Bld) [Volume fraction] 41.7 % Normal 40-54 [facility] Comment on above: Performed By: #### L 300.3900 #### [facility] [address] [place], [address] Hemoglobin (Bld) [Mass/Vol] 14.3 g/dL Normal 13.0-16.5 [facility] Comment on above: Performed By: #### L 300.3900 #### [facility] [address] [place], [address] IG% 0.200 Normal 0.0-0.9 [facility] Comment on above: Result Comment: IG% - Immature Granulocytes (promyelocytes, myelocytes and metamyelocytes) > 1% indicates that a LEFT SHIFT is Present. Performed By: #### L 300.3900 #### [facility] [address] [place], [address] Lymphocytes/100 WBC (Bld) 27.9 % Normal 19-41 [facility] Comment on above: Performed By: #### L 300.3900 #### [facility] [address] [place], [address] MCH (RBC) [Entitic mass] 31.0 pg Normal 27.0-32.0 [facility] Comment on above: Performed By: #### L 300.3900 #### [facility] [address] [place], [address] MCHC (RBC) [Mass/Vol] 34.3 g/dL Normal 32-36 [facility] Comment on above: Performed By: #### L 300.3900 #### [facility] [address] [place], [address] MCV (RBC) [Entitic vol] 90.5 fL Normal 80-94 [facility] Comment on above: Performed By: #### L 300.3900 #### [facility] [address] [place], [address] Monocytes/100 WBC (Bld) 10.4 % High 0-10 [facility] Comment on above: Performed By: #### L 300.3900 #### [facility] [address] [place], [address] Neutrophils/100 WBC (Bld) 57.0 % Normal 47-70 [facility] Comment on above: Performed By: #### L 300.3900 #### [facility] [address] [place], [address] Nucleated RBC (Bld) [#/Vol] 0 10*3/uL Normal 0-5 [facility] Comment on above: Performed By: #### L 300.3900 #### [facility] [address] [place], [address] Platelet mean volume (Bld) [Entitic vol] 9.4 fL Normal 6.2-12.0 [facility] Comment on above: Performed By: #### L 300.3900 #### [facility] [address] [place], [address] Platelets (Bld) [#/Vol] 189 10*3/uL Normal 150-450 [facility] Comment on above: Performed By: #### L 300.3900 #### [facility] [address] [place], [address] RBC (Bld) [#/Vol] 4.61 10*6/uL Normal 4.6-6.2 [facility] Comment on above: Performed By: #### L 300.3900 #### [facility] [address] [place], [address] RDW SD 40.1 fl Normal 35.1-43.9 [facility] Comment on above: Performed By: #### L 300.3900 #### [facility] [address] [place], [address] WBC (Bld) [#/Vol] 4.8 10*3/uL Normal 4.4-11.0 [facility] Comment on above: Performed By: #### L 300.3900 #### [facility] [address] [place], [address] [facility] Albumin/Globulin [Mass ratio] 1.4 {ratio} Normal 0.9-2.4 [facility] Comment on above: Performed By: #### L 300.3900 #### [facility] [address] [place], [place], [address] Eosinophil percentageOrdered By: Samantha Leung on 02-16-2025 Eosinophils/100 WBC (Bld) 3.5 % 0-5 [facility] Erythrocyte distribution wid th ratioOrdered By: Samantha Leung on 02-16-2025 Erythrocyte distribution width (RBC) [Ratio] 12.1 % 11.6-14.6 [facility] Erythrocyte distribution wid th standard deviationOrdered By: Samantha Leung on 02-16-2025 Erythrocyte distribution width (RBC) [Ratio] 40.1 fl 35.1-43.9 [facility] Hematocrit Auto (Bld) [Volum e fraction]Ordered By: Samantha Leung on 02-16-2025 Hematocrit (Bld) [Volume fraction] 41.7 % 40-54 [facility] Hemoglobin measurementOrdere d By: Samantha Leung on 02-16-2025 Hemoglobin (Bld) [Mass/Vol] 14.3 g/dL 13.0-16.5 [facility] Immature granulocytes/100 WB C Auto (Bld)Ordered By: Samantha Leung on 02-16-2025 Immature granulocytes/100 WBC (Bld) 0.200 % 0.0-0.9 [facility] Comment on above: IG% - Immature Granu locytes (promyelocytes, myelocytes and metamyelocytes) > 1% indicates that a LEFT SHIFT is Present. International normalized rat io (INR) calculationOrdered By: Samantha Leung on 02-16-2025 INR Coag (Bld) [Relative time] 1.1 {INR} [facility] Liver Profileon 02-16-2025 Albumin [Mass/Vol] 4.1 g/dL Normal 3.5-5.0 [facility] Comment on above: Performed By: #### L 300.3900 #### [facility] [address] [place], [address] ALK PHOS 107 U/L Normal 40-129 [facility] Comment on above: Performed By: #### L 300.3900 #### [facility] [address] [place], [address] ALT [Catalytic activity/Vol] 101 U/L High <=46 [facility] Comment on above: Performed By: #### L 300.3900 #### [facility] [address] [place], [address] AST [Catalytic activity/Vol] 133 U/L High <=37 [facility] Comment on above: Result Comment: Hemo lysis present, Results??could be affected. ?? Performed By: #### L 300.3900 #### [facility] [address] [place], [address] Bilirubin [Mass/Vol] 1.43 mg/dL High 0.00-1.30 [facility] Comment on above: Performed By: #### L 300.3900 #### [facility] [address] [place], [address] Bilirubin.direct [Mass/Vol] 0.46 mg/dL High 0.00-0.30 [facility] Comment on above: Result Comment: Hemo lysis present, Results??could be affected. ?? Performed By: #### L 300.3900 #### [facility] [address] [place], [address] Globulin (S) [Mass/Vol] 3.0 g/dL Normal 2.2-4.2 [facility] Comment on above: Performed By: #### L 300.3900 #### [facility] [address] [place], [address] T PROT 7.1 g/dL Normal 5.9-8.4 [facility] Comment on above: Performed By: #### L 300.3900 #### [facility] [address] [place], [address] MCV (mean corpuscular volume ) determinationOrdered By: Samantha Leung on 02-16-2025 MCV (RBC) [Entitic vol] 90.5 fL 80-94 [facility] Magnesiumon 02-16-2025 Magnesium [Mass/Vol] 2.2 mg/dL Normal 1.5-2.2 [facility] Comment on above: Performed By: #### L 300.3900 #### [facility] [address] [place], [address] Magnesium measurement (mass/ volume)Ordered By: Samantha Leung on 02-16-2025 Magnesium (Unsp spec) [Mass/Vol] 2.2 mg/dL 1.5-2.2 [facility] Mean corpuscular hemoglobin (MCH) determinationOrdered By: Samantha Leung on 02-16-2025 MCH (RBC) [Entitic mass] 31.0 pg 27.0-32.0 [facility] Mean corpuscular hemoglobin concentration (MCHC) determinationOrdered By: Samantha Leung on 02-16-2025 MCHC (RBC) [Mass/Vol] 34.3 g/dL 32-36 [facility] Mean platelet volume determi nationOrdered By: Samantha Leung on 02-16-2025 Platelet mean volume (Bld) [Entitic vol] 9.4 fL 6.2-12.0 [facility] Monocyte percentageOrdered B y: Samantha Leung on 02-16-2025 Monocytes/100 WBC (Bld) 10.4 % High 0-10 [facility] Neutrophil percentageOrdered By: Samantha Leung on 02-16-2025 Neutrophils/100 WBC (Bld) 57.0 % 47-70 [facility] Nucleated red blood cell per centageOrdered By: Samantha Leung on 02-16-2025 Nucleated RBC/100 WBC (Bld) [Ratio] 0 % 0-5 [facility] Phosphoruson 02-16-2025 Phosphate [Mass/Vol] 3.7 mg/dL Normal 2.7-4.5 [facility] Comment on above: Performed By: #### L 300.3900 #### [facility] [address] [place], [place], [address] Platelet countOrdered By: Bobby Leung on 02-16-2025 Platelets (Bld) [#/Vol] 189 10*3/uL 150-450 [facility] Prothrombin Time w/INRon INR Coag (PPP) [Relative time] 1.1 {INR} Normal [facility] Comment on above: Performed By: #### L 300.3900 #### [facility] [address] [place], [address] PT Coag (PPP) [Time] 14.4 s Normal 11.7-14.9 [facility] Comment on above: Performed By: #### L 300.3900 #### [facility] [address] [place], [address] Prothrombin timeOrdered By: Samantha Leung on 02-16-2025 PT Coag (PPP) [Time] 14.4 s 11.7-14.9 [facility] RBC Auto (Bld) [#/Vol]Ordere d By: Samantha Leung on 02-16-2025 RBC (Bld) [#/Vol] 4.61 10*6/uL 4.6-6.2 [facility] TSH DL <= 0.005 mIU/L QnOrde red By: Samantha Leung on 02-16-2025 TSH Qn 3.250 uIU/mL 0.300-4.200 [facility] Thyroid Stim Hormone (TSH)on 02-16-2025 TSH 3.250 uIU/mL Normal 0.300-4.200 [facility] Comment on above: Performed By: #### L 300.3900 #### [facility] [address] [place], [address] (166 White blood cell (WBC) count Ordered By: Samantha Leung on 02-16-2025 WBC (Bld) [#/Vol] 4.8 10*3/uL 4.4-11.0 [facility] 12 Lead EKGon 02-15-[address] [facility] [address] [place] [address] 12 Lead EKG 02/15/25 1556 MR#: [id number] Acct: [id number] Name: SLOAN HARVEY Rep #: [id number] : 1970 55 From: Blas Bergman MD Attending Dr: Dr. Tammy Cespedes MD Status: AD M IN Ordering Dr: Kris Wood DO Date: 02/15/25 Location: DC3 Sex: M C Admitted: 02/15/25 Test Reason [...] QT Abnormal ECG Confirmed by Blas Bergman ([id number]), editor index REGINA UGALDE ([id number]) on 02/18/2025 10:49:48 AM Referred By: Kris Wood Confirmed By: Blas Bergman 02/18/25 1049 Date Blas Bergman MD CC: Dr. Peggy Nicole DO; Dr. Tammy Cespedes MD; Dr. Kris Wood DO Signed Normal [facility] Absolute lymphocyte countOrd ered By: Kris Wood on 02-15-2025 Lymphocytes Auto (Unsp spec) [#/Vol] 1.64 10*3/uL 0.83-4.51 [facility] Absolute neutrophil countOrd ered By: Kris Wood on 02-15-2025 Neutrophils (Bld) [#/Vol] 4.6 10*3/uL 2.0-7.7 [facility] Alcohol, Blood (Medical)-Ser umon 02-15-2025 SERUM ETOH 97.6 mg/dL High <=10.0 [facility] Comment on above: Result Comment: This test is for medical purposes only. The legal definition of intoxication varies according to local law. Performed By: #### L 100.0100, L501.9100, L505.5000 #### [facility] [address] [place], [address] Amphetamine detection with 1 000 ng/mL as cutoffOrdered By: Kris Israel on 02-15-2025 Amphetamines Screen method >1000 ng/mL Ql (U) Negative < 200 ng/mL [facility] Anion gap in Serum or Plasma Ordered By: Remus Israel on 02-15-2025 Anion gap [Moles/Vol] 18 mmol/L High 5-15 [facility] Automated lymphocyte count a s percentage of total leukocytesOrdered By: [facility] Wood on 02-15-2025 Lymphocytes/100 WBC Auto (Unsp spec) 23.7 % - [facility] BUN/creatinine ratioOrdered By: Christianacaredelicia on 02-15-2025 Urea nitrogen/Creatinine [Mass ratio] 14.6 mg/mg 10- [facility] Basophil percentageOrdered B y: Remus Israel on 02-15-2025 Basophils/100 WBC (Bld) 1.0 % 0-1 [facility] Bilirubin, totalOrdered By: [facility] Israel on 02-15-2025 Bilirubin [Mass/Vol] 1.02 mg/dL 0.00-1.30 [facility] CBC W/Diff, Automatedon 01-19 Absolute Lymph 1.64 X10 3/uL Normal 0.83-4.51 [facility] Comment on above: Performed By: #### L 100.0100, L501.9100, L505.5000 #### [facility] [address] [place], [address] Absolute Neut 4.6 X10 3/uL Normal 2.0-7.7 [facility] Comment on above: Performed By: #### L 100.0100, L501.9100, L505.5000 #### [facility] [address] [place], [address] Basophils/100 WBC (Bld) 1.0 % Normal 0-1 [facility] Comment on above: Performed By: #### L 100.0100, L501.9100, L505.5000 #### [facility] [address] [place], [address] Eosinophils/100 WBC (Bld) 1.9 % Normal 0-5 [facility] Comment on above: Performed By: #### L 100.0100, L501.9100, L505.5000 #### [facility] [address] [place], [address] Erythrocyte distribution width (RBC) [Ratio] 12.1 % Normal 11.6-14.6 [facility] Comment on above: Performed By: #### L 100.0100, L501.9100, L505.5000 #### [facility] [address] [place], [address] Hematocrit (Bld) [Volume fraction] 42.9 % Normal 40-54 [facility] Comment on above: Performed By: #### L 100.0100, L501.9100, L505.5000 #### [facility] [address] [place], [address] Hemoglobin (Bld) [Mass/Vol] 14.8 g/dL Normal 13.0-16.5 [facility] Comment on above: Performed By: #### L 100.0100, L501.9100, L505.5000 #### [facility] [address] [place], [address] IG% 0.300 Normal 0.0-0.9 [facility] Comment on above: Result Comment: IG% - Immature Granulocytes (promyelocytes, myelocytes and metamyelocytes) > 1% indicates that a LEFT SHIFT is Present. Performed By: #### L 100.0100, L501.9100, L505.5000 #### [facility] [address] [place], [address] Lymphocytes/100 WBC (Bld) 23.7 % Normal 19-41 [facility] Comment on above: Performed By: #### L 100.0100, L501.9100, L505.5000 #### [facility] [address] [place], [address] MCH (RBC) [Entitic mass] 30.7 pg Normal 27.0-32.0 [facility] Comment on above: Performed By: #### L 100.0100, L501.9100, L505.5000 #### [facility] [address] [place], [address] MCHC (RBC) [Mass/Vol] 34.5 g/dL Normal 32-36 [facility] Comment on above: Performed By: #### L 100.0100, L501.9100, L505.5000 #### [facility] [address] [place], [address] MCV (RBC) [Entitic vol] 89.0 fL Normal 80-94 [facility] Comment on above: Performed By: #### L 100.0100, L501.9100, L505.5000 #### [facility] [address] [place], [address] Monocytes/100 WBC (Bld) 6.9 % Normal 0-10 [facility] Comment on above: Performed By: #### L 100.0100, L501.9100, L505.5000 #### [facility] [address] [place], [address] Neutrophils/100 WBC (Bld) 66.2 % Normal 47-70 [facility] Comment on above: Performed By: #### L 100.0100, L501.9100, L505.5000 #### [facility] [address] [place], [address] Nucleated RBC (Bld) [#/Vol] 0 10*3/uL Normal 0-5 [facility] Comment on above: Performed By: #### L 100.0100, L501.9100, L505.5000 #### [facility] [address] [place], [address] Platelet mean volume (Bld) [Entitic vol] 9.1 fL Normal 6.2-12.0 [facility] Comment on above: Performed By: #### L 100.0100, L501.9100, L505.5000 #### [facility] [address] [place], [address] Platelets (Bld) [#/Vol] 216 10*3/uL Normal 150-450 [facility] Comment on above: Performed By: #### L 100.0100, L501.9100, L505.5000 #### [facility] [address] [place], [address] RBC (Bld) [#/Vol] 4.82 10*6/uL Normal 4.6-6.2 [facility] Comment on above: Performed By: #### L 100.0100, L501.9100, L505.5000 #### [facility] [address] [place], [address] RDW SD 40.0 fl Normal 35.1-43.9 [facility] Comment on above: Performed By: #### L 100.0100, L501.9100, L505.5000 #### [facility] [address] [place], [address] WBC (Bld) [#/Vol] 6.9 10*3/uL Normal 4.4-11.0 [facility] Comment on above: Performed By: #### L 100.0100, L501.9100, L505.5000 #### [facility] [address] [place], [address] Carbon dioxide, total [Moles /volume] in Central venous bloodOrdered By: Kris Wood on 02-15-2025 CO2 [Moles/Vol] 20.7 mmol/L Low 21.0-32.0 [facility] Chloride assayOrdered By: Radha Wood on 02-15-2025 Chloride [Moles/Vol] 96 mmol/L Low 98-108 [facility] Comprehensive Metabolic Prof ilon 02-15-2025 Albumin [Mass/Vol] 4.5 g/dL Normal 3.5-5.0 [facility] Comment on above: Performed By: #### L 501.5200 #### [facility] [address] [place], [address] Albumin/Globulin [Mass ratio] 1.4 {ratio} Normal 0.9-2.4 [facility] Comment on above: Performed By: #### L 501.5200 #### [facility] [address] [place], [address] ALK PHOS 112 U/L Normal 40-129 [facility] Comment on above: Performed By: #### L 501.5200 #### [facility] [address] [place], [address] ALT [Catalytic activity/Vol] 115 U/L High <=46 [facility] Comment on above: Performed By: #### L 358.5200 #### [facility] [address] [place], [address] AST [Catalytic activity/Vol] 153 U/L High <=37 [facility] Comment on above: Performed By: #### L 652.5200 #### [facility] [address] [place], [address] Bilirubin [Mass/Vol] 1.02 mg/dL Normal 0.00-1.30 [facility] Comment on above: Performed By: #### L 910.5200 #### [facility] [address] [place], [address] BUN/CRE 14.6 RATIO Normal 10-20 [facility] Comment on above: Performed By: #### L 501.5200 #### [facility] [address] [place], [address] Calcium [Mass/Vol] 9.3 mg/dL Normal 7.6-11.0 [facility] Comment on above: Performed By: #### L 501.5200 #### [facility] [address] [place], [address] Chloride [Moles/Vol] 96 mmol/L Low 98-108 [facility] Comment on above: Performed By: #### L 501.5200 #### [facility] [address] [place], [address] CO2 [Moles/Vol] 20.7 mmol/L Low 21.0-32.0 [facility] Comment on above: Performed By: #### L 501.5200 #### [facility] [address] [place], [address] Creatinine [Mass/Vol] 1.19 mg/dL Normal 0.70-1.20 [facility] Comment on above: Performed By: #### L 501.5200 #### [facility] [address] [place], [address] ECRCL 87.20 ml/min Normal 50-250 [facility] Comment on above: Performed By: #### L 501.5200 #### [facility] [address] [place], [address] GAP 18 High 5-15 [facility] Comment on above: Performed By: #### L 501.5200 #### [facility] [address] [place], [address] GFR/1.73 sq M.predicted among non-blacks MDRD (S/P/Bld) [Vol rate/Area] 72 mL/min/{1.73_m2} Normal >60 [facility] Comment on above: Result Comment: mL/m in/1.73m2 CKD-EPI Creatinine Equation (2020) Performed By: #### L 501.5200 #### [facility] [address] [place], [address] Globulin (S) [Mass/Vol] 3.2 g/dL Normal 2.2-4.2 [facility] Comment on above: Performed By: #### L 501.5200 #### [facility] [address] [place], [address] Glucose [Mass/Vol] 142 mg/dL High 70-99 [facility] Comment on above: Performed By: #### L 501.5200 #### [facility] [address] [place], [address] Potassium [Moles/Vol] 3.3 mmol/L Normal 3.3-5.1 [facility] Comment on above: Performed By: #### L 501.5200 #### [facility] [address] [place], [address] Sodium [Moles/Vol] 135 mmol/L Normal 133-145 [facility] Comment on above: Performed By: #### L 501.5200 #### [facility] [address] [place], [address] T PROT 7.8 g/dL Normal 5.9-8.4 [facility] Comment on above: Performed By: #### L 501.5200 #### [facility] [address] [place], [address] Urea nitrogen [Mass/Vol] 17 mg/dL Normal 4-19 [facility] Comment on above: Performed By: #### L 501.5200 #### [facility] [address] [place], [address] Emergency Department Summary on 02-15-2025 Emergency Department Summary [facility] Medical Records Department [address] [place] [address] Emergency Department Summary 02/15/25 MR#: [id number] Acct: [id number] Name: SLOAN HARVEY Rep #: [id number] : 1970 55 From: Kris Wood DO PCP: Dr. Peggy Nicole, DO Status:ADM [place] Location: DC3 [id number] HPI History of Present Illness Chief Complaint: [...] has no stenting. He does smoke cigarettes. [facility] Medical History Anxiety Depression Hypertension Home [...] Effort an (more content not included)... Normal [facility] Eosinophil percentageOrdered By: Belindaus Israel on 02-15-2025 Eosinophils/100 WBC (Bld) 1.9 % 0-5 [facility] Erythrocyte distribution wid th ratioOrdered By: [place] Israel on 02-15-2025 Erythrocyte distribution width (RBC) [Ratio] 12.1 % 11.6-14.6 [facility] Erythrocyte distribution wid th standard deviationOrdered By: [facility] Wood on 02-15-2025 Erythrocyte distribution width (RBC) [Ratio] 40.0 fl 35.1-43.9 [facility] Glomerular filtration rate ( GFR) estimation/1.73 sq m using serum, plasma, or whole bOrdered By: Kris Wood on 02-15-2025 GFR/1.73 sq M.predicted among non-blacks MDRD (S/P/Bld) [Vol rate/Area] 72 mL/min/{1.73_m2} >60 [facility] Comment on above: mL/min/1.73m2 CKD-EP I Creatinine Equation (2020) H AND P Exam - Hospital[place] 02-15-2025 H&P Exam - Hospitalist [facility] Medical Records Department [address] [place] [address] H P Exam - Hospitalist 02/15/25 1742 MR#: [id number] Acct: [id number] Name: SLOAN HARVEY Rep #: [id number] : 1970 55 From: Samantha Leung MD [...] no other drug use. Previously admitted to [facility] for detoxification about 14 months back, [...] T 15, bilirubin 1.02, Ethyl alcohol 97.6 [facility] Medical History Anxiety Depression Hypertension [...] Temporal Pulse (more content not included)... Normal [facility] Hematocrit Auto (Bld) [Volum e fraction]Ordered By: Kris Wood on 02-15-2025 Hematocrit (Bld) [Volume fraction] 42.9 % 40-54 [facility] Hemoglobin measurementOrdere d By: Kris Wood on 02-15-2025 Hemoglobin (Bld) [Mass/Vol] 14.8 g/dL 13.0-16.5 [facility] Immature granulocytes/100 WB C Auto (Bld)Ordered By: Kris Wood on 02-15-2025 Immature granulocytes/100 WBC (Bld) 0.300 % 0.0-0.9 [facility] Comment on above: IG% - Immature Granu locytes (promyelocytes, myelocytes and metamyelocytes) > 1% indicates that a LEFT SHIFT is Present. L499.0042on 02-15-2025 Trop T High Sen 14 ng/L Normal <=22 [facility] Comment on above: Performed By: #### L 499.0042 #### [facility] [address] [place], [place], [address] L499.0043on 02-15-2025 Trop T High Sen 14 ng/L Normal <=22 [facility] Comment on above: Performed By: #### L 501.5200 #### [facility] [address] [place], [address] L501.4021on 02-15-2025 Trop T High Sen 15 ng/L Normal <=22 [facility] Comment on above: Performed By: #### L 925.5200 #### [facility] [address] [place], [address] Laboratory - Chemistry and C hemistry - challengeOrdered By: Kris Wood on 02-15-2025 AST [Catalytic activity/Vol] 153 U/L High <38 [facility] MCV (mean corpuscular volume ) determinationOrdered By: Kris Wood on 02-15-2025 MCV (RBC) [Entitic vol] 89.0 fL 80-94 [facility] Mean corpuscular hemoglobin (MCH) determinationOrdered By: Kris Wood on 02-15-2025 MCH (RBC) [Entitic mass] 30.7 pg 27.0-32.0 [facility] Mean corpuscular hemoglobin concentration (MCHC) determinationOrdered By: Kris Wood on 02-15-2025 MCHC (RBC) [Mass/Vol] 34.5 g/dL 32-36 [facility] Mean platelet volume determi nationOrdered By: Kris Wood on 02-15-2025 Platelet mean volume (Bld) [Entitic vol] 9.1 fL 6.2-12.0 [facility] Monocyte percentageOrdered B y: Kris Wood on 02-15-2025 Monocytes/100 WBC (Bld) 6.9 % 0-10 [facility] Neutrophil percentageOrdered By: Kris Wood on 02-15-2025 Neutrophils/100 WBC (Bld) 66.2 % 47-70 [facility] No Panel InformationOrdered By: Kris Wood on 02-15-2025 Urine Buprenorphine Qualitative Negative < 200 ng/mL [facility] Urine Oxycodone Screen Negative < 100 ng/mL [facility] Nucleated red blood cell per centageOrdered By: Kris Wood on 02-15-2025 Nucleated RBC/100 WBC (Bld) [Ratio] 0 % 0-5 [facility] Platelet countOrdered By: Radha Wood on 02-15-2025 Platelets (Bld) [#/Vol] 216 10*3/uL 150-450 [facility] Potassium measurement (mass/ volume)Ordered By: Kris Wood on 02-15-2025 Potassium (Unsp spec) [Mass/Vol] 3.3 mmol/L 3.3-5.1 [facility] Prothrombin Time w/INRon INR Coag (PPP) [Relative time] 1.1 {INR} Normal [facility] Comment on above: Performed By: #### L 300.6779 #### [facility] [address] [place], [address] PT Coag (PPP) [Time] 14.6 s Normal 11.7-14.9 [facility] Comment on above: Performed By: #### L 300.3900 #### [facility] [place], [address] Quantitative urine opiates m easurementOrdered By: Kris Wood on 02-15-2025 Opiates Ql (U) Negative < 300 ng/mL [facility] RBC Auto (Bld) [#/Vol]Ordere d By: Kris Wood on 02-15-2025 RBC (Bld) [#/Vol] 4.82 10*6/uL 4.6-6.2 [facility] Screening urine fentanyl angela surementOrdered By: Kris Wood on 02-15-2025 fentaNYL Screen Ql (U) Negative [facility] Serum creatinine measurement (mass/volume)Ordered By: Kris Wood on 02-15-2025 Creatinine [Mass/Vol] 1.19 mg/dL 0.70-1.20 [facility] Serum globulin measurementOr dered By: Kris Wood on 02-15-2025 Globulin (S) [Mass/Vol] 3.2 g/dL 2.2-4.2 [facility] Serum glucose measurement (m ass/volume)Ordered By: Kris Wood on 02-15-2025 Glucose [Mass/Vol] 142 mg/dL High 70-99 [facility] Serum or plasma alanine davidson otransferase (ALT) measurementOrdered By: Kris Wood on 02-15-2025 ALT [Catalytic activity/Vol] 115 U/L High <47 [facility] Serum or plasma albumin che urement (mass/volume)Ordered By: Kris Wood on 02-15-2025 Albumin [Mass/Vol] 4.5 g/dL 3.5-5.0 [facility] Serum or plasma albumin/glob ulin mass ratioOrdered By: [facility] Wood on 02-15-2025 Albumin/Globulin [Mass ratio] 1.4 {ratio} 0.9-2.4 [facility] Serum or plasma alkaline salma sphatase measurementOrdered By: Kris Wood on 02-15-2025 ALP [Catalytic activity/Vol] 112 U/L 40-129 [facility] Serum or plasma calcium che urement (mass/volume)Ordered By: Kris Wood on 02-15-2025 Calcium [Mass/Vol] 9.3 mg/dL 7.6-11.0 [facility] Serum or plasma ethanol che urement (mass/volume)Ordered By: Kris Castanondelicia on 02-15-2025 Ethanol [Mass/Vol] 97.6 mg/dL High <10.1 [facility] Comment on above: This test is for med ical purposes only. The legal definition of intoxication varies according to local law. Serum or plasma urea nitroge n measurement (mass/volume)Ordered By: Kris Castanondelicia on 02-15-2025 Urea nitrogen [Mass/Vol] 17 mg/dL 4-19 [facility] Sodium levelOrdered By: Alex gibbs Israel on 02-15-2025 Sodium [Moles/Vol] 135 mmol/L 133-145 [facility] Total proteinOrdered By: Belinda Castanondelicia on 02-15-2025 Protein [Mass/Vol] 7.8 g/dL 5.9-8.4 [facility] Troponin T.cardiac [Mass/vol ume] in Serum or Plasma by High sensitivity methodOrdered By: Kris Castanondelicia on 02-15-2025 Troponin T.cardiac High sensitivity method [Mass/Vol] 14 ng/L <22 [facility] Troponin T.cardiac High sensitivity method [Mass/Vol] 14 ng/L <22 [facility] Troponin T.cardiac High sensitivity method [Mass/Vol] 15 ng/L <22 [facility] Urine Drug Screen (VISTA)on 02-15-2025 AMPHETAMINES Negative Normal <1000 ng/mL [facility] Comment on above: Order Comment: UNK Performed By: #### L 100.0100, L501.9100, L505.5000 #### [facility] [address] [place], [place], [address] BARBITIURATES Negative Normal < 200 ng/mL [facility] Comment on above: Order Comment: UNK Performed By: #### L 100.0100, L501.9100, L505.5000 #### [facility] [address] [place], [address] BENZODIAZIPINE Negative Normal < 200 ng/mL [facility] Comment on above: Order Comment: UNK Performed By: #### L 100.0100, L501.9100, L505.5000 #### [facility] [address] [place], [address] BUP Ur Drug Scr Negative Normal < 200 ng/mL [facility] Comment on above: Order Comment: UNK Performed By: #### L 100.0100, L501.9100, L505.5000 #### [facility] [address] [place], [address] COCAINE Negative Normal < 300 ng/mL [facility] Comment on above: Order Comment: UNK Performed By: #### L 100.0100, L501.9100, L505.5000 #### [facility] [address] [place], [address] Fentanyl Negative Normal [facility] Comment on above: Order Comment: UNK Performed By: #### L 100.0100, L501.9100, L505.5000 #### [facility] [address] [place], [address] METHADONE Negative Normal < 300 ng/mL [facility] Comment on above: Order Comment: UNK Performed By: #### L 100.0100, L501.9100, L505.5000 #### [facility] [address] [place], [address] OPIATES Negative Normal < 300 ng/mL [facility] Comment on above: Order Comment: UNK Performed By: #### L 100.0100, L501.9100, L505.5000 #### [facility] [address] [place], [address] OXYCODONE Negative Normal < 100 ng/mL [facility] Comment on above: Order Comment: UNK Performed By: #### L 100.0100, L501.9100, L505.5000 #### [facility] [address] [place], [address] PCP Negative Normal < 25 ng/mL [facility] Comment on above: Order Comment: UNK Performed By: #### L 100.0100, L501.9100, L505.5000 #### [facility] [address] [place], [address] THC Negative Normal < 50 ng/mL [facility] Comment on above: Order Comment: UNK Performed By: #### L 100.0100, L501.9100, L505.5000 #### [facility] [address] [place], [address] Urine benzodiazepine levelOr dered By: Kris Wood on 02-15-2025 Benzodiazepines Ql (U) Negative < 200 ng/mL [facility] Urine cocaine levelOrdered B y: Remus Israel on 02-15-2025 Cocaine Ql (U) Negative < 300 ng/mL [facility] Urine hdnpy-2-unutfulcqpicxm abinol (THC) measurementOrdered By: Remus Wood on 02-15-2025 Cannabinoids Screen Ql (U) Negative < 50 ng/mL [facility] Urine phencyclidine (PCP) de tectionOrdered By: Remus Wood on 02-15-2025 Phencyclidine Ql (U) Negative < 25 ng/mL [facility] White blood cell (WBC) count Ordered By: Kris Wood on 02-15-2025 WBC (Bld) [#/Vol] 6.9 10*3/uL 4.4-11.0 [facility] CNOVon 07-26-2024 CNOV Office Visit ([facility] ) -- SLOAN HARVEY ([id number]) 1970 M [facility] Date Time Provider Department 07/26/24 7:15 PM [...] history is provided by the patient. No language and literature division chair was used. Dental Problem Review of Systems [...] History of alcoholism (HCC) SVT (supraventricular tachycardia) ([facility]) s/p ablation TIA (transient ischemic attack) PAST [...] agreeable to this care plan. Diana Robertson APRN.FRONT END ALIGNMENT SPECIALIST Allergies As of Date: 07/26/2024 (No Known [...] Status:Closed by DIANA ROBERTSON on 07/26/24 Normal [facility] Office Visit Reporton 2023 Office Visit Report [facility] [address] [place] [address] OFFICE VISIT Date of Service: 06/27/24 MR#: [id number] Acct: [id number] Patient: SLOAN HARVEY Rep #: [id number] : 1970 Provider: ROSA Rosenthal Age/Sex: 54/M Location: 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 Allergies No Known Allergies Allergy (Verified 12/17/23 13:28) [facility] Medical History Anxiety Depression Hypertension [...] Jan Roman Signature: Date (if applicable) CC: [facility] CNOVon 01-16-2024 CNOV Office Visit ([facility] ) -- SLOAN HARVEY ([id number]) 1970 M [facility] Date Time Provider Department 01/16/24 3:00 PM PATRIC KWADWO [facility] During your visit today, we recorded the following information about you: Temperature Pulse Respiration Blood pressure 97.6 degrees 81/minute 18/minute 124/87 Weight 110 kg Patric MEREDITH Combs 01/16/2024 3:37 PM Signed This note was created using [email or web address]. Subjective Sloan Harvey is a 53 year [...] which he will follow-up with. Kwadwo Spivey APRN.FRONT END ALIGNMENT SPECIALIST Neda Rush MA 01/16/2024 3:24 PM Signed [...] Date Reviewed: 01/16/2024 Reviewed by: Kwadwo Spivey APRN.FRONT END ALIGNMENT SPECIALIST - Fully Assessed Reason for Visit: Ear [...] Status:Closed by KWADWO SPIVEY on 01/16/24 Normal [facility] Absolute lymphocyte countOrd ered By: Lucretia Hunter on 12-17-2023 Lymphocytes Auto (Unsp spec) [#/Vol] 1.65 10*3/uL 0.83-4.51 [facility] Automated lymphocyte count a s percentage of total leukocytesOrdered By: Lucretia Hunter on 12-17-2023 Lymphocytes/100 WBC Auto (Unsp spec) 25.3 % 19-41 [facility] Basophil percentageOrdered B y: Lucretia Hunter on 12-17-2023 Basophils/100 WBC (Bld) 0.9 % 0-1 [facility] Bilirubin [Mass/Vol] 0.50 mg/dL 0.20-1.00 [facility] Comment on above: For patients on eltr ombopag therapy, use of Dimension [place] TBIL is not recommended. Chloride [Moles/Vol] 108 mmol/L 98-107 [facility] Eosinophils/100 WBC (Bld) 2.5 % 0-5 [facility] Glucose [Mass/Vol] 80 mg/dL 74-106 [facility] Hemoglobin (Bld) [Mass/Vol] 14.9 g/dL 13.0-16.5 [facility] Monocytes/100 WBC (Bld) 9.2 % 0-10 [facility] Neutrophils (Bld) [#/Vol] 4.0 10*3/uL 2.0-7.7 [facility] Neutrophils/100 WBC (Bld) 61.8 % 47-70 [facility] Potassium [Moles/Vol] 4.1 mmol/L 3.5-5.1 [facility] Protein [Mass/Vol] 7.5 g/dL 6.4-8.2 [facility] Sodium [Moles/Vol] 140 mmol/L 136-145 [facility] WBC (Bld) [#/Vol] 6.5 10*3/uL 4.4-11.0 [facility] Determination of erythrocyte mean corpuscular volume (MCV)Ordered By: Lucretia Hunter on 12-17-2023 MCV (RBC) [Entitic vol] 90.8 fL 80-94 [facility] Erythrocyte distribution wid th ratioOrdered By: Lucretia Hunter on 12-17-2023 Erythrocyte distribution width (RBC) [Ratio] 15.1 % 11.6-14.6 [facility] Erythrocyte distribution wid th standard deviationOrdered By: Lucretia Hunter on 12-17-2023 Erythrocyte distribution width (RBC) [Entitic vol] 49.9 fL 35.1-43.9 [facility] Hematocrit Auto (Bld) [Volum e fraction]Ordered By: Lucretia Hunter on 12-17-2023 Hematocrit (Bld) [Volume fraction] 44.5 % 40-54 [facility] Immature granulocytes/100 WB C Auto (Bld)Ordered By: Lucretia Hunter on 12-17-2023 Immature granulocytes/100 WBC (Bld) 0.300 % 0.0-0.9 [facility] Comment on above: IG% - Immature Granu locytes (promyelocytes, myelocytes and metamyelocytes) > 1% indicates that a LEFT SHIFT is Present. Laboratory - Chemistry and C hemistry - challengeOrdered By: Lucretia Hunter on 12-17-2023 Albumin/Globulin [Mass ratio] 0.8 {ratio} 0.9-2.4 [facility] ALP [Catalytic activity/Vol] 121 U/L 45-117 [facility] ALT [Catalytic activity/Vol] 89 U/L 16-61 [facility] CO2 [Moles/Vol] 25.0 mmol/L 21.0-32.0 [facility] Globulin (S) [Mass/Vol] 4.1 g/dL 2.2-4.2 [facility] Urea nitrogen/Creatinine [Mass ratio] 13.8 mg/mg 10-20 [facility] - Drug toxicology Ordered By: Lucretia Hunter on 12-17-2023 Amphetamines Ql (U) Negative <1000 ng/mL [facility] Benzodiazepines Ql (U) Negative < 200 ng/mL [facility] Cannabinoids Screen Ql (U) Positive < 50 ng/mL [facility] Cocaine Ql (U) Negative < 300 ng/mL [facility] Opiates Ql (U) Negative < 300 ng/mL [facility] - Hematology and Cell countsOrdered By: Lucretia Hunter on 12-17-2023 MCH (RBC) [Entitic mass] 30.4 pg 27.0-32.0 [facility] MCHC (RBC) [Mass/Vol] 33.5 g/dL 32-36 [facility] Nucleated RBC/100 WBC (Bld) [Ratio] 0 % 0-5 [facility] Platelet mean volume (Bld) [Entitic vol] 9.0 fL 6.2-12.0 [facility] Platelets (Bld) [#/Vol] 241 10*3/uL 150-450 [facility] No Panel InformationOrdered By: Lucretia Hunter on 12-17-2023 MDMA (Ecstasy) Screen Negative < 500 ng/mL [facility] Urine Barbiturates Screen Negative < 200 ng/mL [facility] Urine Drug Screen Comment [facility] Comment on above: CONFIRMATORY TESTING FOR [...] Urine Methadone Screen Negative < 300 ng/mL [facility] Estimated Creatinine Clearance Calc 113.55 ml/min [facility] Estimated GFR (MDRD) Amer 107 mL/min >60 [facility] Comment on above: GFR Calc Estimated GFR (MDRD) Non-Af Amer 89 mL/min >60 [facility] Comment on above: Non- GFR Calc Ethyl Alcohol Level 148.0 mg/dL [facility] Comment on above: The serum:whole bloo d ethanol ratio is approximately 1.14and varies slightly with hematocrit. Medical Alcohol reference interval and critical value innon-tolerant individuals; 50 - 100 Impairment 100 Intoxication 100 - 250 Severe Poisoning 250 - 400 Deep/possible fatal coma RBC Auto (Bld) [#/Vol]Ordere d By: Lucretia Hunter on 12-17-2023 RBC (Bld) [#/Vol] 4.90 10*6/uL 4.6-6.2 [facility] Serum or plasma calcium che urement (mass/volume)Ordered By: Lucretia Hunter on 12-17-2023 Calcium [Mass/Vol] 8.7 mg/dL 8.5-10.1 [facility] Serum or plasma creatinine m easurement (mass/volume)Ordered By: Lucretia Hunter on 12-17-2023 Creatinine [Mass/Vol] 0.94 mg/dL 0.70-1.30 [facility] Comment on above: The validity of the calculated GFR & GFRAA in patients over 70 years has not been determined. Clinical correlation is essential. Serum or plasma urea nitroge n measurement (mass/volume)Ordered By: Lucretia Hunter on 12-17-2023 Urea nitrogen [Mass/Vol] 13 mg/dL 7-18 [facility] Thin prep Papanicolaou smear with manual screeningOrdered By: Lucretia Hunter on 12-17-2023 Thin prep Papanicolaou smear with manual screening 3.4 g/dL 3.2-5.0 [facility] Thin prep Papanicolaou smear with manual screening 60 U/L [facility] Thin prep Papanicolaou smear with manual screening 7 5-15 [facility] Urine phencyclidine (PCP) de tectionOrdered By: Lucretia Hunter on 12-17-2023 Phencyclidine Ql (U) Negative < 25 ng/mL [facility] CBC W Auto Differential pane l (Bld)on 10-01-2023 Basophils (Bld) [#/Vol] 0.14 10*3/uL High <0.11 [facility] Comment on above: Order Comment: Speci men Type: BLOOD SPECIMENOrdering Facility: [facility] Address: [address] [place] [address] Performed By: #### 5 7021-8 ####[facility] LABORATORYCLIA [id number] [place] [address] [place] Basophils/100 WBC (Bld) 1.0 % Normal [facility] Comment on above: Order Comment: Speci men Type: BLOOD SPECIMENOrdering Facility: [facility] Address: [address] [place] [address] Performed By: #### 5 7021-8 ####[facility] LABORATORYCLIA [id number] [place] [address] [place] Differential cell count method Nom (Bld) Auto Normal [facility] Comment on above: Order Comment: Speci men Type: BLOOD SPECIMENOrdering Facility: [facility] Address: [address] [place] [address] Performed By: #### 5 7021-8 ####[facility]ATORYCLIA [id number] [address] Eosinophils (Bld) [#/Vol] 0.25 10*3/uL Normal <0.46 [facility] Comment on above: Order Comment: Speci men Type: BLOOD SPECIMENOrdering Facility: [facility] Address: [address] [place] [address] Performed By: #### 5 7021-8 ####[facility]ATORYCLIA [id number] [address] Eosinophils/100 WBC (Bld) 1.9 % Normal [facility] Comment on above: Order Comment: Speci men Type: BLOOD SPECIMENOrdering Facility: [facility] Address: [address] [place] [address] Performed By: #### 5 7021-8 ####[facility]ATORYCLIA [id number] [address] [place] Erythrocyte distribution width (RBC) [Ratio] 13.7 % Normal 11.5-15.0 [facility] Comment on above: Order Comment: Speci men Type: BLOOD SPECIMENOrdering Facility: [facility] Address: [address] [place] [address] Performed By: #### 5 7021-8 ####[facility]ATORYCLIA [id number] [address] Hematocrit (Bld) [Volume fraction] 44.5 % Normal 39.0-51.0 [facility] Comment on above: Order Comment: Speci men Type: BLOOD SPECIMENOrdering Facility: [facility] Address: [address] [place] [address] Performed By: #### 5 7021-8 ####[facility]ATORYCLIA [id number] [address] [place] Hemoglobin (Bld) [Mass/Vol] 14.7 g/dL Normal 13.0-17.0 [facility] Comment on above: Order Comment: Speci men Type: BLOOD SPECIMENOrdering Facility: [facility] Address: [address] [place] [address] Performed By: #### 5 7021-8 ####[facility]ATORYCLIA [id number] [address] [place] Immature granulocytes (Bld) [#/Vol] 0.06 10*3/uL Normal <0.10 [facility] Comment on above: Order Comment: Speci men Type: BLOOD SPECIMENOrdering Facility: [facility] Address: [address] [place] [address] Performed By: #### 5 7021-8 ####[facility]ORYCLIA [id number] [address] Immature granulocytes/100 WBC (Bld) 0.4 % Normal [facility] Comment on above: Order Comment: Speci men Type: BLOOD SPECIMENOrdering Facility: [facility] Address: [address] [place] [address] Performed By: #### 5 7021-8 ####[facility]ORYCLIA [id number] [address] [place] Lymphocytes (Bld) [#/Vol] 4.89 10*3/uL High 1.00-4.00 [facility] Comment on above: Order Comment: Speci men Type: BLOOD SPECIMENOrdering Facility: [facility] Address: [address] [place] [address] Performed By: #### 5 7021-8 ####[facility]ATORYCLIA [id number] [address] [place] Lymphocytes/100 WBC (Bld) 36.4 % Normal [facility] Comment on above: Order Comment: Speci men Type: BLOOD SPECIMENOrdering Facility: [facility] Address: [address] [place] [address] Performed By: #### 5 7021-8 ####[facility]ATORYCLIA [id number] [place] [address] [place] MCH (RBC) [Entitic mass] 29.1 pg Normal 26.0-34.0 [facility] Comment on above: Order Comment: Speci men Type: BLOOD SPECIMENOrdering Facility: [facility] Address: [address] [place] [address] Performed By: #### 5 7021-8 ####[facility] LABORATORYCLIA [id number] [address] [place] MCHC (RBC) [Mass/Vol] 33.0 g/dL Normal 30.5-36.0 [facility] Comment on above: Order Comment: Speci men Type: BLOOD SPECIMENOrdering Facility: [facility] Address: [address] [place] [address] Performed By: #### 5 7021-8 ####[facility]ORATORYCLIA [id number] [address] [place] MCV (RBC) [Entitic vol] 88.1 fL Normal 80.0-100.0 [facility] Comment on above: Order Comment: Speci men Type: BLOOD SPECIMENOrdering Facility: [facility] Address: [address] [place] [address] Performed By: #### 5 7021-8 ####[facility]ORATORYCLIA [id number] [address] [place] Monocytes (Bld) [#/Vol] 1.11 10*3/uL High <0.87 [facility] Comment on above: Order Comment: Speci men Type: BLOOD SPECIMENOrdering Facility: [facility] Address: [address] [place] [address] Performed By: #### 5 7021-8 ####[facility]ORATORYCLIA [id number] [address] Monocytes/100 WBC (Bld) 8.3 % Normal [facility] Comment on above: Order Comment: Speci men Type: BLOOD SPECIMENOrdering Facility: [facility] Address: [address] [place] [address] Performed By: #### 5 7021-8 ####[facility]ATORYCLIA [id number] [place] [address] [place] Neutrophils (Bld) [#/Vol] 6.99 10*3/uL Normal 1.45-7.50 [facility] Comment on above: Order Comment: Speci men Type: BLOOD SPECIMENOrdering Facility: [facility] Address: [address] [place] [address] Performed By: #### 5 7021-8 ####[facility]ORATORYCLIA [id number] [place] [address] [place] Neutrophils/100 WBC (Bld) 52.0 % Normal [facility] Comment on above: Order Comment: Speci men Type: BLOOD SPECIMENOrdering Facility: [facility] Address: [address] [place] [address] Performed By: #### 5 7021-8 ####[facility]ORATORYCLIA [id number] [place] [address] [place] Nucleated RBC (Bld) [#/Vol] 10*3/uL Normal <0.01 [facility] Comment on above: Order Comment: Speci men Type: BLOOD SPECIMENOrdering Facility: [facility] Address: [address] [place] [address] Performed By: #### 5 7021-8 ####[facility]ORATORYCLIA [id number] [address] [place] Nucleated RBC/100 WBC (Bld) [Ratio] 0.0 /100 WBC Normal [facility] Comment on above: Order Comment: Speci men Type: BLOOD SPECIMENOrdering Facility: [facility] Address: [address] [place] [address] Performed By: #### 5 7021-8 ####[facility]ORATORYCLIA [id number] [place] [address] [place] Platelet mean volume (Bld) [Entitic vol] 8.9 fL Low 9.0-12.7 [facility] Comment on above: Order Comment: Speci men Type: BLOOD SPECIMENOrdering Facility: [facility] Address: [address] [place] [address] Performed By: #### 5 7021-8 ####[facility]ORATORYCLIA [id number] [address] Platelets (Bld) [#/Vol] 295 10*3/uL Normal 150-400 [facility] Comment on above: Order Comment: Speci men Type: BLOOD SPECIMENOrdering Facility: [facility] Address: [address] [place] [address] Performed By: #### 5 7021-8 ####[facility]ORATORYCLIA [id number] [address] RBC (Bld) [#/Vol] 5.05 10*6/uL Normal 4.20-6.00 [facility] Comment on above: Order Comment: Speci men Type: BLOOD SPECIMENOrdering Facility: [facility] Address: [address] [place] [address] Performed By: #### 5 7021-8 ####[facility]ORATORYCLIA [id number] [address] WBC (Bld) [#/Vol] 13.44 10*3/uL High 3.70-11.00 [facility] Comment on above: Order Comment: Speci men Type: BLOOD SPECIMENOrdering Facility: [facility] Address: [address] [place] [address] Performed By: #### 5 7021-8 ####[facility]ORATORYCLIA [id number] [address] Comprehensive metabolic 2000 panelon 10-01-2023 Albumin [Mass/Vol] 4.3 g/dL Normal 3.9-4.9 [facility] Comment on above: Order Comment: Speci men Type: BLOOD SPECIMEN [facility] Address: [address] [place] [address] Performed By: #### 2 4323-8 #### [facility] CLIA [id number] [address] ALP [Catalytic activity/Vol] 80 U/L Normal 38-113 [facility] Comment on above: Order Comment: Speci elisa Type: BLOOD SPECIMEN [facility] Address: [address] [place] [address] Performed By: #### 2 4323-8 #### [facility] CLIA [id number] [address] ALT With P-5'-P [Catalytic activity/Vol] 24 U/L Normal 10-54 [facility] Comment on above: Order Comment: Speci men Type: BLOOD SPECIMEN [facility] Address: [address] [place] [address] Result Comment: Refe rence ranges for this patient's age group have not been established. These reference ranges reflect verified or established ranges for the adult population. Interpret these ranges with caution using the clinical context and additional reference resources. Performed By: #### 2 4323-8 #### [facility] CLIA [id number] [address] Anion gap [Moles/Vol] 14 mmol/L Normal 9-18 [facility] Comment on above: Order Comment: Dianai elisa Type: BLOOD SPECIMEN [facility] Address: [address] [place] [address] Result Comment: Refe rence ranges for this patient's age group have not been established. These reference ranges reflect verified or established ranges for the adult population. Interpret these ranges with caution using the clinical context and additional reference resources. Performed By: #### 2 4323-8 #### [facility] CLIA [id number] [address] AST With P-5'-P [Catalytic activity/Vol] 35 U/L Normal 14-40 [facility] Comment on above: Order Comment: Dianai elisa Type: BLOOD SPECIMEN [facility] Address: [address] [place] [address] Result Comment: Refe rence ranges for this patient's age group have not been established. These reference ranges reflect verified or established ranges for the adult population. Interpret these ranges with caution using the clinical context and additional reference resources. Performed By: #### 2 4323-8 #### [facility] CLIA [id number] [address] OF [facility] Bilirubin [Mass/Vol] 0.4 mg/dL Normal 0.2-1.3 [facility] Comment on above: Order Comment: Astrid pérez Type: BLOOD SPECIMEN [facility] Address: [address] [place] [address] Result Comment: Refe rence ranges for this patient's age group have not been established. These reference ranges reflect verified or established ranges for the adult population. Interpret these ranges with caution using the clinical context and additional reference resources. Performed By: #### 2 4323-8 #### [facility] CLIA [id number] [address] OF [facility] Calcium [Mass/Vol] 8.3 mg/dL Low 8.5-10.2 [facility] Comment on above: Order Comment: Astrid pérez Type: BLOOD SPECIMEN [facility] Address: [address] [place] [address] Performed By: #### 2 4323-8 #### [facility] CLIA [id number] [address] [place] [address] [place] Chloride [Moles/Vol] 107 mmol/L High 97-105 [facility] Comment on above: Order Comment: Astrid pérez Type: BLOOD SPECIMEN [facility] Address: [address] [place] [address] Performed By: #### 2 4323-8 #### [facility] CLIA [id number] [address] [place] CO2 [Moles/Vol] 23 mmol/L Normal 22-30 [facility] Comment on above: Order Comment: Astrid [facility] Type: BLOOD SPECIMEN [facility] Address: [address] [place] [address] Result Comment: Refe rence ranges for this patient's age group have not been established. These reference ranges reflect verified or established ranges for the adult population. Interpret these ranges with caution using the clinical context and additional reference resources. Performed By: #### 2 4323-8 #### [facility] CLIA [id number] [address] Creatinine [Mass/Vol] 1.16 mg/dL Normal 0.73-1.22 [facility] Comment on above: Order Comment: Astrid pérez Type: BLOOD SPECIMEN [facility] Address: [address] [place] [address] Result Comment: Refe rence ranges for this patient's age group have not been established. These reference ranges reflect verified or established ranges for the adult population. Interpret these ranges with caution using the clinical context and additional reference resources. Performed By: #### 2 4323-8 #### [facility] CLIA [id number] [address] Creatinine and Glomerular filtration rate.predicted panel (S/P/Bld) 48 mL/min/1.73m??? Low >=60 [facility] Comment on above: Order Comment: Astrid pérez Type: BLOOD SPECIMEN [facility] Address: [address] [place] [address] Result Comment: Miguelina mated Glomerular Filtration Rate [...] 4323-8 #### [facility] CLIA [id number] [address] STATES OF [facility] Glucose [Mass/Vol] 112 mg/dL High 74-99 [facility] Comment on above: Order Comment: Astrid pérez Type: BLOOD SPECIMEN [facility] Address: [address] [place] [address] Result Comment: The [place] [employer] (ADA) provides guidance for cutoff [...] Standards of Medical Care in Diabetes 2016, [place] [employer]. Diabetes Care. 2016.39(Suppl 1). Performed By: #### 2 4323-8 #### [facility] CLIA [id number] [address] [place] [address] [place] Potassium [Moles/Vol] 3.6 mmol/L Low 3.7-5.1 [facility] Comment on above: Order Comment: Astrid pérez Type: BLOOD SPECIMEN [facility] Address: [address] [place] [address] Result Comment: Refe rence ranges for this patient's age group have not been established. These reference ranges reflect verified or established ranges for the adult population. Interpret these ranges with caution using the clinical context and additional reference resources. Performed By: #### 2 4323-8 #### [facility] CLIA [id number] [address] [place] [address] [place] Protein [Mass/Vol] 6.7 g/dL Normal 6.3-8.0 [facility] Comment on above: Order Comment: Astrid pérez Type: BLOOD SPECIMEN [facility] Address: [address] [place] [address] Performed By: #### 2 4323-8 #### [facility] CLIA [id number] [address] [place] [address] [place] Sodium [Moles/Vol] 144 mmol/L Normal 136-144 [facility] Comment on above: Order Comment: Astrid pérez Type: BLOOD SPECIMEN [facility] Address: [address] [place] [address] Performed By: #### 2 4323-8 #### [facility] CLIA [id number] [address] [place] [address] [place] Urea nitrogen [Mass/Vol] 11 mg/dL Normal 9-24 [facility] Comment on above: Order Comment: Speci men Type: BLOOD SPECIMEN [facility] Address: [place] [id number] Performed By: #### 2 4323-8 #### [facility] CLIA [id number] [address] ED NOTEon 10-01-2023 ED NOTE HNO ID: [id number] Author: LLUVIA LYNCH, KATIA Service: Behavioral Health Author Type: Registered Nurse Type: ED Notes Filed: 10/01/2023 08:01 Note Text: HABILITATION ASSISTANT NOTE Mr. Harvey is very motivated for residential treatment. [facility] I got angry and after 90 days sober, I drank. That's how I dealt with my anger. And now, I have no idea how I got here. Mr. Harvey spoke with intake at [facility] and agreed to their policies. [facility] will transport him via [facility] when he is discharged. [facility] ED NOTE HNO ID: [id number] Author: LLUVIA LYNCH RN Service: Behavioral Health Author Type: Registered Nurse Type: ED Notes Filed: 10/01/2023 07:41 Note Text: HABILITATION ASSISTANT NOTE [facility] in [place] has availability for Mr. Harvey. They are verifying his coverage and will transport him when he is discharged. [facility] ED NOTE HNO ID: [id number] Author: CHARLIE HARGROVE RN Service: Emergency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 CUTOFF 1.0 ng/mL [facility] Interpretation and review of laboratory results Abnormal [facility] Opiates Screen (U) [Mass/Vol] NOT DETECTED CUTOFF <300 ng/mL [facility] Phencyclidine (U) [Mass/Vol] NOT DETECTED CUTOFF <25 ng/mL [facility] Tox Message see below [facility] Comment on above: Notes: 1. SCREENING RESULTS SHOULD BE CONSIDERED PRESUMPTIVE UNLESS THE PRESENCE OF THE ANALYTE HAS BEEN CONFIRMED BY A REFERENCE LAB. 2. ALL DRUG GROUPS ARE ANALYZED ON URINE. [facility] UR DRUG SCREEN-7 PANELon Opiates Ql (U) Not detected Normal CUTOFF <300 [facility] Comment on above: Performed By: #### 4 [id number] #### [facility] [place] [phone] PCP Not detected Normal CUTOFF <25 [facility] Comment on above: Performed By: #### 4 [id number] #### [facility] [place] [phone] COCAINE/BE Not detected Normal CUTOFF <300 [facility] Comment on above: Performed By: #### 4 [id number] #### [facility] [place] [id number] BENZODIAZEPINE Not detected Normal CUTOFF <200 [facility] Comment on above: Performed By: #### 4 [id number] #### [facility] [place] [id number] MARIJUANA/THC Positive Abnormal CUTOFF <50 [facility] Comment on above: Performed By: #### 4 [id number] #### [place] [id number] BARBITURATE Not detected Normal CUTOFF <200 [facility] Comment on above: Performed By: #### 4 [id number] #### [place] [id number] AMPHETAMINES/METH Not detected Normal CUTOFF <[address] [facility] Comment on above: Performed By: #### 4 [id number] #### [place] [id number] FENTANYL Not detected Normal CUTOFF 1.0 [facility] [facility] Comment on above: Performed By: #### 4 [id number] #### [place] [id number] TOX MESSAGE see below Normal [facility] Comment on above: Result Comment: Note s: 1. SCREENING RESULTS SHOULD BE CONSIDERED PRESUMPTIVE UNLESS THE PRESENCE OF THE ANALYTE HAS BEEN CONFIRMED BY A REFERENCE LAB. 2. ALL DRUG GROUPS ARE ANALYZED ON URINE. Performed By: #### [id number] #### [place] [id number] URINALYSIS W/REFLEXon 2020 Appearance (U) Cloudy Normal [facility] Comment on above: Performed By: #### 4 [id number] #### [place] [id number] Bacteria identified Cx Nom (U) NOT INDICATED Normal [facility] Comment on above: Performed By: #### [id number] #### [address] [place] [address] Bilirubin Ql (U) Negative Normal Negative [facility] Comment on above: Performed By: #### 4 [id number] #### [place] [address] Color (U) Candice Normal [facility] Comment on above: Performed By: #### 4 [id number] #### [place] [address] Glucose Ql (U) Negative Normal Negative [facility] Comment on above: Performed By: #### 4 [id number] #### [place] [id number] HYALINE CAST 2 /LPF Normal [facility] Comment on above: Performed By: #### 4 [id number] #### [place] [id number] Ketones Ql (U) 20 mg/dL Abnormal Negative [facility] Comment on above: Performed By: #### 4 [id number] #### [place] [address] LEUKOESTERASE Negative Normal Negative [facility] Comment on above: Performed By: #### 4 [id number] #### [place] [address] MUCOUS-URINE Many Normal [facility] Comment on above: Performed By: #### 4 [id number] #### [place] [address] Nitrite Ql (U) Negative Normal Negative [facility] Comment on above: Performed By: #### 4 [id number] #### [facility] [place] [id number] NON-SQUAMOUS EPI 2 /LPF Normal [facility] Comment on above: Performed By: #### 4 [id number] #### [facility] [place] [id number] OCCULT BLOOD Small Abnormal Negative [facility] Comment on above: Performed By: #### 4 [id number] #### [place] [id number] pH (U) 5.0 [pH] Normal [facility] Comment on above: Performed By: #### 4 [id number] #### [place] [id number] Protein Ql (U) 100 mg/dL Abnormal Negative [facility] Comment on above: Performed By: #### 4 [id number] #### [place] [id number] RBC LM.HPF (Urine sed) [#/Area] 7 /[HPF] High 0-5 [facility] Comment on above: Performed By: #### 4 [id number] #### [place] [id number] Specific gravity (U) [Rel density] 1.027 Normal 1.003-1.029 [facility] Comment on above: Performed By: #### 4 [id number] #### [place] [id number] Urobilinogen (U) [Mass/Vol] 2.0 mg/dL Normal <2.0 [facility] Comment on above: Performed By: #### 4 [id number] #### [place] [id number] WBC LM.HPF (Urine sed) [#/Area] 3 /[HPF] Normal 0-5 [facility] Comment on above: Performed By: #### 4 [id number] #### [place] [id number] URINE SOURCE Voided Normal [facility] Comment on above: Performed By: #### 4 [id number] #### [place] [id number] Urinalysis with reflex cultu reon 12-22-2020 Appearance (U) Cloudy [facility] Bacteria identified Aer cx Nom (Unsp spec) NOT INDICATED [facility] Bilirubin Ql (U) Negative Negative [facility] Color (CSF) Candice [facility] Glucose Ql (U) Negative Negative mg/dL [facility] Hemoglobin Ql (U) 7 High [facility] Hyaline casts (Urine sed) [#/Area] 2 /[LPF] /LPF [facility] Interpretation and review of laboratory results Abnormal [facility] Ketones Ql (U) 20 mg/dL Abnormal Negative [facility] Leukoesterase Negative Negative [facility] Mucous-Urine Many /LPF [facility] Nitrite Ql (U) Negative Negative [facility] Non-Squamous EPI 2 /LPF [facility] Occult Bld Small Abnormal Negative [facility] pH (U) 5.0 [pH] [facility] Protein (U) [Mass/Vol] 100 mg/dL Abnormal Negative [facility] Specific gravity (U) [Rel density] 1.027 [facility] Urine Source Voided [facility] Urobilinogen Qn (U) 2.0 mg/dL <2.0 [facility] WBC (U) [#/Vol] 3 /uL [facility] Basic metabolic panelon 12- Calcium [Mass/Vol] 9.4 mg/dL 8.4 - 10. 4 mg/dL [facility] Chloride [Moles/Vol] 105 mmol/L 96 - 10 9 mmol/L [facility] CO2 [Moles/Vol] 27 mmol/L 22 - 30 mmol/L [facility] Comprehensive metabolic 2000 panel 0.88 mg/dL 0.66 - 1.25 mg/dL [facility] Glucose [Mass/Vol] 82 mg/dL 65 - 100 mg/dL [facility] Potassium [Moles/Vol] 3.9 mmol/L 3.6 - 5.1 mmol/L [facility] Sodium [Moles/Vol] 140 mmol/L 135 - 147 mmol/L [facility] Urea nitrogen [Mass/Vol] 12 mg/dL 8 - 26 mg/dL [facility] CBC without differentialon 1 10-28-2018 Erythrocyte distribution width (RBC) [Ratio] 12.8 % 11.5 - 14.5 % [facility] Hematocrit (Bld) [Volume fraction] 44.7 % 37.7 - 51.1 % [facility] Hemoglobin (Bld) [Mass/Vol] 14.7 g/dL 12.8 - 17.7 g/dL [facility] MCH (RBC) [Entitic mass] 31.5 pg 27 - 34.2 pg [facility] MCHC (RBC) [Mass/Vol] 32.9 g/dL 31.4 - 36.2 g/dl [facility] MCV (RBC) [Entitic vol] 95.9 fL 80.6 - 99 fL [facility] Platelets (Bld) [#/Vol] 232.0 10*3/uL [facility] RBC (Bld) [#/Vol] 4.66 10*6/uL [facility] WBC LM Ql (Sput) 10.0 [facility] GLOMERULAR FILTRATION RATEon 08-27-2019 GFR/1.73 sq M.predicted MDRD (S/P/Bld) [Vol rate/Area] mL/min/{1.73_m2} [facility] Comment on above: To estimate [...] and Rh group Nom (Bld) O POS [facility] Blood group antibody screen.cells I+II+III Ql Negative [facility] HEPATITIS VIRAL PANELon 07-21 HAV IgM Qn (S) Nonreactive Nonreactive [facility] HCV Ab Qn (S) Nonreactive Nonreactive [facility] Hep B Core-M AB Nonreactive Nonreactive [facility] Hep B Surf AG Nonreactive Nonreactive [facility] Hepatic function panelon Albumin [Mass/Vol] 4.3 g/dL 3.5 - 5 g/dL [facility] Alk Phos 97 U/L 24 - 126 U/L [facility] ALT [Catalytic activity/Vol] 22 U/L 4 - 50 U/L [facility] AST [Catalytic activity/Vol] 32 U/L 3 - 55 U/L [facility] Bilirubin [Mass/Vol] 0.6 mg/dL 0.2 - 1 .6 mg/dL [facility] Bilirubin.conjugated [Mass/Vol] 0.1 mg/dL 0 - 0.5 mg/dL [facility] Protein [Mass/Vol] 7.7 g/dL 6.3 - 8.2 g/dL [facility] Basic metabolic panel aka Ch em 8on 07-24-2019 Calcium [Mass/Vol] 9.8 mg/dL 8.4 - 10. 4 mg/dL [facility] Chloride [Moles/Vol] 108 mmol/L 96 - 10 9 mmol/L [facility] CO2 [Moles/Vol] 28 mmol/L 22 - 30 mmol/L [facility] Comprehensive metabolic 2000 panel 0.93 mg/dL 0.66 - 1.25 mg/dL [facility] Glucose [Mass/Vol] 101 mg/dL High 65 - 100 mg/dL [facility] Interpretation and review of laboratory results Abnormal [facility] Potassium [Moles/Vol] 4.3 mmol/L 3.6 - 5.1 mmol/L [facility] Sodium [Moles/Vol] 143 mmol/L 135 - 147 mmol/L [facility] Urea nitrogen [Mass/Vol] 10 mg/dL 8 - 26 mg/dL [facility] CBC with Differentialon Absolute [place]alls 0.6 [facility] Basophils (Bld) [#/Vol] 0.1 10*3/uL [facility] Basophils/100 WBC (Bld) 0.7 % [facility] Eosinophils (Bld) [#/Vol] 0.2 10*3/uL [facility] Eosinophils/100 WBC (Bld) 2.2 % [facility] Erythrocyte distribution width (RBC) [Ratio] 13.0 % 11.5 - 14.5 % [facility] Hematocrit (Bld) [Volume fraction] 47.4 % 37.7 - 51.1 % [facility] Hemoglobin (Bld) [Mass/Vol] 15.5 g/dL 12.8 - 17.7 g/dL [facility] Lymphocytes (Bld) [#/Vol] 1.9 10*3/uL [facility] Lymphocytes/100 WBC (Bld) 20.6 % [facility] MCH (RBC) [Entitic mass] 32.3 pg 27 - 34.2 pg [facility] MCHC (RBC) [Mass/Vol] 32.7 g/dL 31.4 - 36.2 g/dl [facility] MCV (RBC) [Entitic vol] 98.8 fL 80.6 - 99 fL [facility] Monocytes/100 WBC (Bld) 6.5 % [facility] Neutrophils (Bld) [#/Vol] 6.4 10*3/uL [facility] Neutrophils/100 WBC (Bld) 70.0 % [facility] Platelets (Bld) [#/Vol] 208.0 10*3/uL [facility] RBC (Bld) [#/Vol] 4.80 10*6/uL [facility] WBC LM Ql (Sput) 9.1 [facility] EKG 12-LEADon 07-24-2019 Stationary ECG Study Test Date: 2019-07-24 Pat Name: SLOAN HARVEY Department: Room: Gender: Male 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5 - 4 .5 mg/dL [facility] Troponin Ion 07-24-2019 Troponin I.cardiac [Mass/Vol] ng/mL 0 - 0.033 ng/mL [facility] Comment on above: NEGATIVE; No detectable troponin-I. C-reactive protein (Inflamma tory)on 07-05-2019 CRP [Mass/Vol] 12.8 mg/L High 0 - 9.9 mg/L [facility] CBC with Differentialon 06-19 Absolute Ralls 0.6 [facility] Basophils (Bld) [#/Vol] 0.1 10*3/uL [facility] Basophils/100 WBC (Bld) 0.7 % [facility] Eosinophils (Bld) [#/Vol] 0.2 10*3/uL [facility] Eosinophils/100 WBC (Bld) 2.5 % [facility] Erythrocyte distribution width (RBC) [Ratio] 12.7 % 11.5 - 14.5 % [facility] Hematocrit (Bld) [Volume fraction] 44.9 % 37.7 - 51.1 % [facility] Hemoglobin (Bld) [Mass/Vol] 15.1 g/dL 12.8 - 17.7 g/dL [facility] Lymphocytes (Bld) [#/Vol] 1.5 10*3/uL [facility] Lymphocytes/100 WBC (Bld) 20.6 % [facility] MCH (RBC) [Entitic mass] 33.0 pg 27 - 34.2 pg [facility] MCHC (RBC) [Mass/Vol] 33.6 g/dL 31.4 - 36.2 g/dl [facility] MCV (RBC) [Entitic vol] 98.2 fL 80.6 - 99 fL [facility] Monocytes/100 WBC (Bld) 8.3 % [facility] Neutrophils (Bld) [#/Vol] 5.1 10*3/uL [facility] Neutrophils/100 WBC (Bld) 67.9 % [facility] Platelets (Bld) [#/Vol] 222.0 10*3/uL [facility] RBC (Bld) [#/Vol] 4.57 10*6/uL [facility] WBC LM Ql (Sput) 7.5 [facility] Comprehensive metabolic pane l aka Metaboon 07-05-2019 Albumin [Mass/Vol] 4.4 g/dL 3.5 - 5 g/dL [facility] Alk Phos 107 U/L 24 - 126 U/L [facility] ALT [Catalytic activity/Vol] 97 U/L High 4 - 50 U/L [facility] AST [Catalytic activity/Vol] 63 U/L High 3 - 55 U/L [facility] Bilirubin [Mass/Vol] 1.0 mg/dL 0.2 - 1 .6 mg/dL [facility] Calcium [Mass/Vol] 9.9 mg/dL 8.4 - 10. 4 mg/dL [facility] Chloride [Moles/Vol] 106 mmol/L 96 - 10 9 mmol/L [facility] CO2 [Moles/Vol] 26 mmol/L 22 - 30 mmol/L [facility] Comprehensive metabolic 2000 panel 0.69 mg/dL 0.66 - 1.25 mg/dL [facility] Glucose [Mass/Vol] 80 mg/dL 65 - 100 mg/dL [facility] Potassium [Moles/Vol] 4.3 mmol/L 3.6 - 5.1 mmol/L [facility] Protein [Mass/Vol] 8.1 g/dL 6.3 - 8.2 g/dL [facility] Sodium [Moles/Vol] 139 mmol/L 135 - 147 mmol/L [facility] Urea nitrogen [Mass/Vol] 7 mg/dL Low 8 - 26 mg/dL [facility] EKG 12-LEADon 07-05-2019 Stationary ECG Study Test Date: 2019-07-05 Pat Name: SLOAN HARVEY Department: Room: Gender: Male 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 GLOMERULAR FILTRATION RATEon 07-05-2019 GFR/1.73 sq M.predicted MDRD (S/P/Bld) [Vol rate/Area] mL/min/{1.73_m2} [facility] Comment on above: To estimate the GFR [...] 104 U/L High 15 - 73 U/L [facility] Hemoglobin A1con 07-05-2019 HbA1c (Bld) [Mass fraction] 5.5 % 0 - 6 % [facility] Comment on above: Reference Interval f or %A1c %A1c (NGSP) Interpretation <6.0% Non-Diabetic Range >6.5% Action Suggested . Lipid panelon 07-05-2019 Cholesterol [Mass/Vol] 193 mg/dL 0 - 200 mg/dL [facility] Comment on above: CHOLESTEROL REFERENC E RANGE Desirable <200 mg/dL Borderline 200-239 mg/dL High >240 mg/dL . Cholesterol in HDL [Mass/Vol] 31.9 mg/dL Low 40 - 59.9 mg/dL [facility] Comment on above: Interpretive data fo r HDL Cholesterol states: HDL <40 mg/dL is low and constitutes a coronary disease risk factor. HDL >60 mg/dL is a negative risk factor for coronary heart disease. . Cholesterol in LDL [Mass/Vol] 137 mg/dL High 0 - 100 mg/dL [facility] Comment on above: LDL REFERENCE RANGE Optimal <100 mg/dl Near Optimal 100-129 mg/dL Borderline High 130-159 mg/dL High 160-189 mg/dL Very High >=190 mg/dL . Cholesterol in VLDL [Mass/Vol] 24 mg/dL <42 [facility] Triglyceride [Mass/Vol] 120 mg/dL 0 - 150 mg/dL [facility] Comment on above: TRIGLYCERIDE REFEREN CE RANGE Normal <150 mg/dL Borderline High 150-199 mg/dL High 200-499 mg/dL Very High >=500 mg/dL . Magnesiumon 07-05-2019 Magnesium [Mass/Vol] 2.2 mg/dL 1.6 - 2 .3 mg/dL [facility] Otheron 07-05-2019 Interpretation and review of laboratory results Abnormal [facility] Interpretation and review of laboratory results Abnormal [facility] TSHon 07-05-2019 TSH Qn 1.970 m[IU]/L [facility] Vitamin B12on 07-05-2019 Cobalamin (Vitamin B12) [Mass/Vol] 420 pg/mL 239 - 931 pg/mL [facility] Vitamin D 25 hydroxyon 07-05 25-Hydroxyvitamin D2+25-Hydroxyvitamin D3 [Mass/Vol] 32.4 ng/mL [facility] Comment on above: Reference Range: Deficiency: <20 ng/mL Insufficiency: 21-29 ng/mL Optimal Level: >=30 ng/mL Possible Toxicity: >80 ng/mL - 80 ng/mL is the lowest reported level associated with toxicity in patients without primary hyperthyroidism who have normal renal function. Ethanolon 06-20-2019 Ethanol Ql (U) <10 NOT DETECTED mg/dL [facility] Toxicology screen, urineon 1 Amphetamines Screen method >1000 ng/mL Ql (U) NOT DETECTED CUTOFF <1000 ng/mL [facility] Barbiturates Screen method >200 ng/mL Ql (U) NOT DETECTED CUTOFF <200 ng/mL [facility] Benzodiazepines Ql (U) NOT DETECTED CUTOFF <200 ng/mL [facility] Benzoylecgonine Screen (U) [Mass/Vol] NOT DETECTED CUTOFF <300 ng/mL [facility] Cannabinoids Screen method >50 ng/mL Ql (U) Positive Abnormal CUTOFF <50 ng/mL [facility] Interpretation and review of laboratory results Abnormal [facility] Opiates Screen (U) [Mass/Vol] NOT DETECTED CUTOFF <300 ng/mL [facility] Phencyclidine (U) [Mass/Vol] NOT DETECTED CUTOFF <25 ng/mL [facility] Tox Message see below [facility] [...] blowout fracture with herniation of orbital fat.Workstation ID:[id number] 14 days ago headache started 15 days ago has not improved since tia Normal [facility] 06-11-2017 Alanine aminotransferase (ALT) 79 U/L Abnormal [facility] Comment on above: Performed By: #### L AB15, LAB62, [id number], [id number] ####[facility] CLIA [id number] [place] [id number] [facility]#### LAB46, LAB18 ####[facility] CLIA [id number] [place] [address] [id number] [facility], [place] [phone] Cinda 06-11-2017 Aspartate aminotransferase (AST) 47 U/L Abnormal 15-[address] [facility] Comment on above: Performed By: #### L AB15, LAB62, [id number], [id number] ####[facility] [id number] [place] [address] [place]#### LAB46, LAB18 ####[facility] [id number] [place] [address] [facility], [phone] BASIC METABOLIC PANELon 05-21 Anion gap 12 mmol/L Normal 7-[address] [facility] Comment on above: Performed By: #### L AB15, LAB62, [id number], [id number] ####[facility] [id number] [place] [address] [place]#### LAB46, LAB18 ####[facility] [id number] [place] [address] [facility], [phone] BUN (urea nitrogen) 20 mg/dL Abnormal 7-18 [facility] Comment on above: Performed By: #### L AB15, LAB62, [id number], [id number] ####[facility] [id number] [place] [address] [place]#### LAB46, LAB18 ####[facility] CLIA [id number] [place] [address] [facility], [place] [phone] Calcium 9.1 mg/dL Normal 8.5-10.[address] [facility] Comment on above: Performed By: #### L AB15, LAB62, UCT099, EZV111 ####[facility] CLIA [id number] [place] [address] [place]#### LAB46, LAB18 ####[facility] [id number] [place] [address] [facility], [place] [address] Chloride 110 mmol/L Abnormal 98-[address] [facility] Comment on above: Performed By: #### L AB15, LAB62, [id number], [id number] ####[facility] [id number] [place] [address], [facility]31 [place]#### LAB46, LAB18 ####[facility] [id number] [address] [address], [facility]31 USAINDU [facility], [place] [address] CO2 20 mmol/L Abnormal 21-[address] [facility] Comment on above: Performed By: #### L AB15, LAB62, OBA001, [id number] ####[facility] [id number] [place] [address], [facility]31 [place]#### LAB46, LAB18 ####[facility] [id number] [address] [address], [facility]31 USAINDU [facility], [address] Creatinine 1.1 mg/dL Normal 0.60-1.[address] [facility] Comment on above: Performed By: #### L AB15, LAB62, TCN682, [id number] ####[facility] [id number] [place] [address], [facility]31 [place]#### LAB46, LAB18 ####[facility] [id number] [place] [address] [facility], [phone] eGFR (black) mL/min/{1.73_m2} Normal >60 [facility] Comment on above: Result Comment: GFR is estimated using creatinine, age, gender, and race. Patient's values should be interpreted as a trend. For additional information: [email or web address] Performed By: #### L AB15, LAB62, [id number], [id number] ####[facility] CLIA [id number] [place] [address] [place]#### LAB46, LAB18 ####[facility] [id number] [place] [address] [facility], [phone] eGFR (non-black) mL/min/{1.73_m2} Normal >60 [facility] Comment on above: Result Comment: GFR is estimated using creatinine, age, gender, and race. Patient's values should be interpreted as a trend. For additional information: [email or web address] Performed By: #### L AB15, LAB62, [id number], [id number] ####[facility] [id number] [place] [address] [place]#### LAB46, LAB18 ####[facility] [id number] [address] [address], [facility]31 [facility], [place] [phone] Glucose mass conc 86 mg/dL Normal 74-106 [facility] Comment on above: Performed By: #### L AB15, LAB62, VXP450, [id number] ####[facility] [id number] [place] [address] [place]#### LAB46, LAB18 ####[facility] [id number] [place] [address] [facility], [phone] Potassium molar conc 3.7 mmol/L Normal 3.5-5.1 [facility] Comment on above: Performed By: #### L AB15, LAB62, MLA231, SCV812 ####[facility] [id number] [place] [address] [place]#### LAB46, LAB18 ####[facility] [place] [id number] [place] [address] [facility] AND [place] [id number], [place] [phone] Sodium 142 mmol/L Normal 136-[address] [facility] Comment on above: Performed By: #### L AB15, LAB62, RFN083, GKL653 ####[facility] [id number] [place] [address] [place]#### LAB46, LAB18 ####[facility] [id number] [place] [address] [facility] [place] [id number], [phone] CKon 06-11-2017 CREATINE KINASE TOTAL 179 U/L Normal 39-308 [facility] Comment on above: Performed By: #### L AB15, LAB62, XSD383, AAM192 ####[facility] [id number] [place] [address] [place]#### LAB46, LAB18 ####[facility] [id number] [place] [address] [facility]3535 [place], [place] [phone] CT-ANGIO HEADANDNECK W AND/O R WO CON [...] by: Dinesh Solis MD, 06/11/2017 6:38 PM [facility] CT-HYPERACUTE HEAD W/O CON S TROKEon 06-11-2017 [...] by: Connor Flores DO, 06/11/2017 2:25 PM [facility] Consultson 06-11-2017 Consults Encounter Department : [facility] EMERGENCY DEPARTMENTConsults by Sandie Flores DO at 06/11/2017 3:32 PMAuthor: Chaka Osoriorvice: NeurologyAuthor Type: PhysicianFiled: 06/11/2017 3:52 PMDate of Service: 06/11/2017 3:32 PMStatus: AddendumEditor: Sandie Flores DO (Physician)Related Notes:Original Note by Sandie Flores DO (Physician) filed at 06/11/2017 3:48 PMNeurological Services Consult NoteBECOOSA VALLEY MEDICAL CENTERPatient Name:Sloan Gonzalezpedro : 1970Subjective:CC:47 y.o. -handed [facility] Called back and spoke with the ER about the case twice. Reviewed therecords from [facility] everywhere no matching patients in [facility] or [facility].He is not on any aspirin or [...] to update the rena.Patient was seen remotely. [place] during the examination patient's friend Collin came [...] or seizurePast Medical History:DiagnosisDate -Back pain, chronic -Adculaxiduorzi2434 -SVT (supraventricular tachycardia)hx of being offered ablaton [...] Tremors--none Rapidly alternating movements: no dysdiadochokinesia b/l Cpoj-dm-Wxje: no dysmetria b/l Qivwyk-qd-Smui: no dysmetria b/lGait and stance: Gait: deferredLABS:Recent [...] us.Sandie Flores DO, 06/11/2017 3:32 PM Normal [facility] DRUGS OF ABUSE URINEon 06-11 AMPHETAMINE METAB Negative Normal Negative [facility] Comment on above: Result Comment: Nega tive Performed By: #### L [id number] ####[facility] [id number] [place] [id number] [address] BARBITURATES Negative Normal Negative [facility] Comment on above: Result Comment: Nega tive Performed By: #### L [id number] ####[facility] [id number] [phone] CANNABINOID METAB Negative Normal Negative [facility] Comment on above: Result Comment: Nega tive Performed By: #### L [id number] ####[facility] [id number] [place] [address], [address] AND [place] [address], [place] [address] DRUGS OF ABUSE URINE Normal [facility] Comment on above: Result Comment: Caryn l includes: Amphetamines, Barbiturates, Benzodiazepines, Cocaine, Opiates, THCDrug Screen Cut-off values:Amphetamines 300 ng/mlBenzodiazepines 200 ng/mlBarbiturates 200 ng/mlCocaine metabolite 300 ng/mlCannabinoids 50 ng/mlOpiates 300 ng/ml* Results are unconfirmed screening results and should only be used for medical purposes. Performed By: #### L [id number] ####[facility] [id number] [place] [address], [address] AND [place] [address], [place] [address] OPIATE METAB Negative Normal Negative [facility] Comment on above: Result Comment: Nega tive Performed By: #### L [id number] ####[facility] [id number] [place] [address], [address] AND [facility]35[address], [place] [phone] Urine, benzodiazepines presence Negative Normal Negative [facility] Comment on above: Result Comment: Nega tive Performed By: #### L [id number] ####[facility] CLIA [id number] [place] [address], [facility]31 [facility] AND [facility]35[address], [place] [phone] Urine, cocaine presence Negative Normal Negative [facility] Comment on above: Result Comment: Nega tive Performed By: #### L [id number] ####[facility] AND [facility] CLIA [id number] [place] [address], [address] AND [facility]3535 [place], [place] [phone] ED Provider Noteson 06-11-20 17 ED Provider Notes Encounter Department : [facility] EMERGENCY DEPARTMENTED Provider Notes by Neela Horne [...] MEDICAL HISTORYPast Medical History:DiagnosisDate -Back pain, chronic -Pkxktoociqfkju9456 -SVT (supraventricular tachycardia)hx of being offered ablaton [...] marked as taking for the 06/11/17 encounter ([facility]).ALLERG IESNo Known AllergiesPHYSICAL EXAMVITAL SIGNS: BP (!) 147/104 Pulse 89 Temp 98.8 ?F (37.1 ?C) Resp 15 Ht 6' (1.829 m) Wt(!) 242 lb (109.8 kg) SpO2 98% BMI 32.82 kg/k2Rmmejn during ED course were reviewed and are [...] encounter of 06/11/17EKG Standard 12 leadResultValueRef RangeRR YHQMGFBO579qdXD Qpucdujx961yuEGPY Xsqvzavo34umXI Anldzixw944biOCk Xfttkuru303ilYgwdb Wdhd57zxG Opcn15hscDXA Wlng92ayeI Wave Hysk61tzcA:40 Ivng78tbdJ:40 Rhei49mcxMG Wbga354yjcPMYQCDDnnmp rhythmREPORTProbable left atrial enlargementInterpreting PhysStudy Date/Hmei6768-60-46 14:20:21RADIOLOGY/PROCEDUR ES/LABS/MEDICATIONS ADMINISTERED:CT-ANGIO HEAD AND NECK W [...] METABOLIC PANEL - Abnormal; Notable for the following:Fbuezbjr868 (*)98 - 107 mmol/GHeevnGG349 (*)21 - 32 mmol/JWgqnyCEU50 (*)7 - 18 mg/dLFinalAll other components within normal limitsSERUM TOX SCREEN - Abnormal; Notable for the following:Acetaminophen Level<2 (*)10 - 30 ug/nIMylwqApolvaz010 (*)<=3 mg/dLFinalAll other components within normal limitsNarrative:Salicylate Therapeutic Range: 20-25 mg/dLAcetaminophen Therapeutic Range:10.00-30.00 ug/mLETHANOL - Abnormal; Notable for the following:Iwkbzrf830 (*)<=3 mg/dLFinalAll other components within normal limitsNarrative:Results [...] limitsLIPID PANEL - Abnormal; Notable for the following:Izhsirlrugk517 (*)<=200 mg/dLFinalLDL Jlpbclkkcqe105 (*)0 - 99 mg/dLFinalAll other components within [...] for glycemic control:-Goal of therapy :< 7.0% MxS6k-Jqvrej suggested: >8.0% JuU0aEI - NormalGLUCOSE POC RESULTS - NormalNarrative:Point of care test performed at bedside.CBC W/DIFFPOC GLUCOSE, BLOOD BY GLUCOSE MONITORING DEVICE (ACCUCHPlaydate App)EXTRA TUBE-BLUEEXTRA TUBE-SSTEXTRA TUBE-PSTEXTRA TUBE-REDEXTRA TUBE-PURPLEMedications0.9 % sodium [...] care, and plan with [facility].I have personally seen and examined this patient. [...] 06/13/2017 11:06 Helen Horne MD06/13/[address] [facility] EKG STANDARD 12 LEADon 06-11 Pulse (Heart Rate) RR Interval= 659 msP R Interval= 133 msQRSD Interval= 87 msQT Interval= 342 msQTc Interval= 421 msHeart Rate= 91 msP Brook[place]= 27 degQRS [place]= 24 degT Wave [place]= 34 degI: 40 [place]= 49 degT: 40 [place]= 21 degST [place]= 165 degSinus rhythm Probable left atrial enlargement Electronically Signed by: Justin Turner (DO) 14-Jun-2017 06:15:10 Date and Time of Study: 2017-06-11 14:20:[address] [facility] ETHANOLon 06-11-2017 Ethanol 248 mg/dL Abnormal <=[address] [facility] Comment on above: Performed By: #### L AB15, LAB62, HQL672, AJU857 ####[facility] CLIA [id number] [place] [address]#### LAB46, LAB18 ####[facility] CLIA [id number] [place] [phone] Ethanol Normal [facility] Comment on above: Result Comment: Resu lts of this test should always be interpreted in conjunction with the patient's medical history, clinical presentation and other findings.The pharmacological response to blood alcohol levels may vary from individual to individual. The fatal concentration has been reported to be greater than 400 mg/dL. Performed By: #### L AB15, LAB62, EMQ396, NQI008 ####[facility] AND [facility] CLIA [id number] [place] [address] [place]#### LAB46, LAB18 ####[facility] CLIA [id number] [place] [address] AND [place] [address] [place], [place] [phone] HEMOGLOBIN A1Con 06-11-2017 Glucose mass conc 103 mg/dL Normal 68-126 [facility] Comment on above: Performed By: #### L AB90 ####[facility] [id number] [place] [address], [address] AND [place] [address]35 [facility] BlvdBeavercre, [place] [phone] Hemoglobin A1c/Hemoglobin.total mass fraction (Bld) Normal [facility] Comment on above: Result Comment: Ther apeutic goals for glycemic control:-Goal of therapy :< 7.0% BqL2b-Gjfqhy suggested: >8.0% HbA1c Performed By: #### L AB90 ####[facility] [id number] [facility]PITALVDBEAVERCRE, [address] AND [place] [address]35 [place] [address]vdBeavercreJess[place] [phone] Hemoglobin A1c/Hemoglobin.total mass fraction (Bld) 5.2 % Normal 4.0-6.[address] [facility] Comment on above: Performed By: #### L AB90 ####[facility] [id number] [place], [address] AND [place] [address]341535 [facility]king[facility] medical center BlvdBeaverBrittany [place] [phone] LACTATE/LACTIC ACIDon 2016 Lactate 2.1 mmol/L Abnormal 0.4-2.[address] [facility] Comment on above: Result Comment: This result has been reviewed. Performed By: #### L [id number] ####[facility] [id number] [place], [address] AND [facility]3535 [address]king[address] [facility] BlvdBeavercreek, [place] [phone] LACTATE/LACTIC ACID Normal [facility] Comment on above: Result Comment: Put on ice - Place specimen on ice immediately after collection and transport to lab.Put on ice - Place specimen on ice immediately after collection and transport to lab. Performed By: #### L [id number] ####[facility] CLIA [id number] [place] [address] [facility]35[address], [place] [phone] Lactate 3.7 mmol/L Abnormal 0.4-2.[address] [facility] Comment on above: Performed By: #### L [id number] ####[facility] [id number] [place] [address] [facility] AND [place] [address] [place] [address], [phone] LACTATE/LACTIC ACID Normal [facility] Comment on above: Result Comment: Put on ice - Place specimen on ice immediately after collection and transport to lab. Performed By: #### L [id number] ####[facility]IA [id number] [place] [address] [facility] AND [facility]35[phone] LIPID PANELon 06-11-2017 Cholesterol 59 mg/dL Normal 40-[address] [facility] Comment on above: Performed By: #### L AB15, LAB62, YLG775, URI758 ####[facility] CLIA [id number] [place] [address] [place]#### LAB46, LAB18 ####[facility] CLIA [id number] [place] [address] [facility] AND [facility]35[address] [place] [address], [phone] Cholesterol 268 mg/dL Abnormal <=[address] [facility] Comment on above: Performed By: #### L AB15, LAB62, WKJ770, ADB275 ####[facility] [id number] [place] [address] [place]#### LAB46, LAB18 ####[facility] [id number] [place] [address] [facility] AND [facility]35[address], [place] [phone] LDL Cholesterol 181 mg/dL Abnormal 0-[address] [facility] Comment on above: Performed By: #### L AB15, LAB62, LFU416, UHS422 ####[facility] [id number] [place] [address] [place]#### LAB46, LAB18 ####[facility] AND [facility] [id number] [place] [address] [facility] AND [facility]35[address]vd[address]aver[address], [place] [phone] LIPID PANEL Normal [facility] Comment on above: Result Comment: ATP III Classification of LDL, Total and HDL Cholesterol (mg/dL)LDL Cholesterol: <100 Optimal 100-129 Near optimal/above optimal 130-159 Borderline high 160-189 High >=190 Very highTotal Cholesterol: <200 Desirable 200-239 Borderline high >=240 HighHDL Cholesterol: <40 Low >=60 High Performed By: #### L AB15, LAB62, AZH797, LVR066 ####[facility] [id number] [place] [address] [place]#### LAB46, LAB18 ####[facility]IA [id number] [place] [address] [facility]35[address], [place] [phone] Triglyceride 139 mg/dL Normal 0-[address] [facility] Comment on above: Performed By: #### L AB15, LAB62, EYL049, UTQ432 ####[facility] [id number] [place], [address]#### LAB46, LAB18 ####[facility] [id number] [place] [address], [address] AND [place] [address]35 [address], [phone] VLDL CHOLESTEROL 28 mg/dL Normal 0-40 [facility] [place] Comment on above: Performed By: #### L AB15, LAB62, SSO804, KSO755 ####[facility] [id number] [place], [address]#### LAB46, LAB18 ####[facility] [id number] [place] [address], [address] AND [place] [address] [phone] PARTIAL THROMBOPLASTon 06-11 PARTIAL THROMBOPLASTIN TIME MECHANICAL 30.2 Seconds Normal 27.0-39.[address] [facility] Comment on above: Performed By: #### L AB320 ####[facility] [id number] [place] [address], [address] AND [place] [address]35 [place] [address], [phone]#### [id number] ####[facility] [id number] [place] [address], [address] PROTIME-INRon 06-11-2017 INR Coag RelTime (Bld) Normal [facility] Comment on above: Result Comment: Cond ition and INR Therapeutic Range:Deep venous thrombosis 2.0-3.0Pulmonary embolism 2.0-3.0Acute myocardial infarction 2.0-3.0Atrial fibrillation 2.0-3.0Antiphospholipid syndrome (no other risk factors) 2.0-3.0Antiphospholipid syndrome with recurrent thromboembolism 2.5-3.0Bioprosthetic (tissue) valve 2.0-3.0Mechanical prosthetic valves 2.0-3.0 or 2.5-3.5 depending on valve type and location Performed By: #### L AB320 ####[facility] AND [facility] [id number] [place], [address] AND [place] [address] [address]vd[place]avercreVal[place] [address]#### [id number] ####[facility] [id number] [place] [address], [address] INR Coag RelTime (PPP) 1.0 {INR} Normal 0.8-1.[address] [facility] Comment on above: Performed By: #### L AB320 ####[facility] [id number] [place], [address] AND [place] [address] [address], [place] [address]#### [id number] ####[facility] [id number] [place] [address], [address] Prothrombin time (PT) Coag time (PPP) 11.4 s Normal 9.3-12.[address] [facility] Comment on above: Performed By: #### L AB320 ####[facility] [id number] [place], [address] AND [place] [address]35 [address], [place] [address]#### [id number] ####[facility] [id number] [place], [address] Progress Noteson 06-11-2017 Progress Notes Encounter Department : [facility] EMERGENCY DEPARTMENTProgress Notes by Sandie Flores DO [...] cta head and neck given aphasia Normal [facility] SERUM TOX SCREENon 7 Acetaminophen mass conc <2 Abnormal 07-[address] [facility] Comment on above: Performed By: #### L AB349 ####[facility] CLIA [id number] [facility] BLVDBEAVER[place] [address] [facility] AND [facility]3535 [place] [phone] Ethanol 251 mg/dL Abnormal <=[address] [facility] Comment on above: Performed By: #### L AB349 ####[facility] [id number] [place] [address] [facility] AND [facility]3535 [address] Niagara HospitalvdBeaverVictor [place] [phone] SALICYLATE (GM[facility]/IRS) 3.5 mg/dl Normal 3.0-20.0 [facility] Comment on above: Performed By: #### L AB349 ####[facility] AND [facility] CLIA [id number] [place] [address] [facility] AND [facility]3535 PentEastern Niagara HospitalvdBeStephanie [place] [phone] SERUM TOX SCREEN Normal [facility] [place] Comment on above: Result Comment: Sali cylate Therapeutic Range: 20-25 mg/dLAcetaminophen Therapeutic Range:10.00-30.00 ug/mL Performed By: #### L AB349 ####[facility] CLIA [id number] [place] [address] [facility]3535 [place], [place] [phone] Vital Signs Date Time Vital Sign Value Performing Clinician Facility 04-23-2025 08:00-0400 Body temperature 98.1 [degF] Dr. Kris Wood DO Work Phone: 6(279)090-203669 [place] [address] 04-23-2025 08:00-0400 Diastolic blood pressure 93 mm[Hg] Dr. Kris Wood DO Work Phone: 3(183)858-710169 [place] [address] 04-23-2025 08:00-0400 Heart rate 70 /min Dr. Kris Wood DO Work Phone: 0(442)081-032769 [place] [address] 04-23-2025 08:00-0400 Respiratory rate 16 /min Dr. Kris Wood DO Work Phone: 5(403)648-477069 [place] [address] 04-23-2025 08:00-0400 SaO2% (BldA) [Mass fraction] 99 % Dr. Kris Wood DO Work Phone: 2(817)578-563769 [place] [address] 04-23-2025 08:00-0400 Systolic blood pressure 138 mm[Hg] Dr. Kris Wood DO Work Phone: 2(452)776-827049 [place] [address] 04-23-2025 03:48-0400 Body mass index (BMI) [Ratio] 34.8 kg/m2 Dr. Kris Wood DO Work Phone: 1(308)500-187969 [place] [address] 04-23-2025 03:48-0400 Body weight 110.[address] Kris Wood DO Work Phone: 4(613)751-254564 [address] 04-20-2025 22:03-0400 Body temperature 96.8 [degF] Dr. Kris Wood DO Work Phone: 3(142)457-898549 [place] [address] 04-20-2025 22:03-0400 Diastolic blood pressure 81 mm[Hg] Dr. Kris Wood DO Work Phone: 8(986)615-659549 [place] [address] 04-20-2025 22:03-0400 Heart rate 71 /min Dr. Kris Wood DO Work Phone: 9(398)260-614469 [place] [address] 04-20-2025 22:03-0400 Respiratory rate 20 /min Dr. Kris Wood DO Work Phone: 5(408)598-156469 [place] [address] 04-20-2025 22:03-0400 SaO2% (BldA) [Mass fraction] 94 % Dr. Kris Wood DO Work Phone: 2(515)215-656669 [place] [address] 04-20-2025 22:03-0400 Systolic blood pressure 133 mm[Hg] Dr. Kris Wood DO Work Phone: 1(869)204-109969 [place] [address] 04-20-2025 21:04-0400 Body height 177.[address] Kris Wood DO Work Phone: 1(607)495-254569 [place] [address] 04-20-2025 21:04-0400 Body mass index (BMI) [Ratio] 35.4 kg/m2 Dr. Kris Wood DO Work Phone: 1(229)792-535949 [place] [address] 04-20-2025 21:04-0400 Body weight 112.[address] Kris Wood DO Work Phone: 5(294)223-066369 [place] [address] 02-18-2025 08:37-0400 Body temperature 97.9 [degF] Dr. Kris Wood DO Work Phone: 7(694)400-094969 [place] [address] 02-18-2025 08:37-0400 Diastolic blood pressure 91 mm[Hg] Dr. Kris Wood DO Work Phone: 2(955)269-571149 [place] [address] 02-18-2025 08:37-0400 Heart rate 77 /min Dr. Kris Wood DO Work Phone: 8(824)511-348149 [place] [address] 02-18-2025 08:37-0400 Respiratory rate 16 /min Dr. Kris Wood DO Work Phone: 5(008)020-382549 [place] [address] 02-18-2025 08:37-0400 SaO2% (BldA) [Mass fraction] 94 % Dr. Kris Wood DO Work Phone: 0(973)454-266669 [place] [address] 02-18-2025 08:37-0400 Systolic blood pressure 133 mm[Hg] Dr. Kris Wood DO Work Phone: 4(296)621-861969 [place] [address] 02-16-2025 10:56-0400 Body height 177.[address] Kris Wood DO Work Phone: 5(680)014-347169 [place] [address] 02-16-2025 10:56-0400 Body weight 112.[address] Kris Wood DO Work Phone: 8(864)652-501769 [place] [address] 02-15-2025 18:28-0400 Body mass index (BMI) [Ratio] 35.5 kg/m2 Dr. Kris Wood DO Work Phone: 8(207)147-240469 [place] [address] 02-15-2025 17:34-0400 Body temperature 98.4 [degF] Dr. Kris Wood DO Work Phone: 8(379)321-500269 [place] [address] 02-15-2025 17:34-0400 Diastolic blood pressure 78 mm[Hg] Dr. Kris Wood DO Work Phone: 1(715)961-838369 [place] [address] 02-15-2025 17:34-0400 Heart rate 78 /min Dr. Kris Wood DO Work Phone: 7(841)653-950269 [place] [address] 02-15-2025 17:34-0400 Respiratory rate 16 /min Dr. Kris Wood DO Work Phone: 4(792)098-511449 [place] [address] 02-15-2025 17:34-0400 SaO2% (BldA) [Mass fraction] 96 % Dr. Kris Wood DO Work Phone: 1(992)022-744549 [place] [address] 02-15-2025 17:34-0400 Systolic blood pressure 118 mm[Hg] Dr. Kris Wood DO Work Phone: 8(314)660-088969 [place] [address] 02-15-2025 15:33-0400 Body height 177.[address] Kris Wood DO Work Phone: [facility] 02-15-2025 15:33-0400 Body mass index (BMI) [Ratio] 35.6 kg/m2 Dr. Kris Wood DO Work Phone: [facility] 02-15-2025 15:33-0400 Body weight 112.[address] Kris Wood DO Work Phone: [facility] 07-26-2024 19:28-0500 Body mass index (BMI) [Ratio] 34.38 kg/m2 Diana Robertson APRN.FRONT END ALIGNMENT SPECIALIST Work Phone: [facility] [facility] 07-26-2024 19:28-0500 Body temperature 97 [degF] Diana Robertson APRN.FRONT END ALIGNMENT SPECIALIST Work Phone: [facility] 07-26-2024 19:28-0500 Body weight 108.7 kg Diana Robertson APRN.FRONT END ALIGNMENT SPECIALIST Work Phone: [facility] 07-26-2024 19:28-0500 Diastolic blood pressure 75 mm[Hg] Diana Robertson APRN.FRONT END ALIGNMENT SPECIALIST Work Phone: [facility] 07-26-2024 19:28-0500 Heart rate 64 /min Diana Robertson APRN.FRONT END ALIGNMENT SPECIALIST Work Phone: [facility] 07-26-2024 19:28-0500 Respiratory rate 18 /min Diana Robertson APRN.FRONT END ALIGNMENT SPECIALIST Work Phone: [facility] 07-26-2024 19:28-0500 SaO2% (BldA) [Mass fraction] 97 % Diana Robertson APRN.FRONT END ALIGNMENT SPECIALIST Work Phone: [facility] 07-26-2024 19:28-0500 Systolic blood pressure 113 mm[Hg] Diana Robertson APRN.FRONT END ALIGNMENT SPECIALIST Work Phone: [facility] 06-05-2024 08:29-0400 Body height 177.8 cm Peggy Nicole DO Work Phone: [facility] 06-05-2024 08:29-0400 Body mass index (BMI) [Ratio] 20.37 kg/m2 Peggy Bonnie DO Work Phone: [facility] 06-05-2024 08:29-0400 Body weight 64.41 kg Peggy Bonnie DO Work Phone: [facility] 04-04-2024 09:51-0400 Body height 177.8 cm Peggy Bonnie DO Work Phone: [facility] 04-04-2024 09:51-0400 Body mass index (BMI) [Ratio] 34.72 kg/m2 Peggy Bonnie DO Work Phone: [facility] 04-04-2024 09:51-0400 Body weight 109.77 kg Peggy Bonnie DO Work Phone: [facility] 01-16-2024 14:56-0400 Body mass index (BMI) [Ratio] 33.82 kg/m2 Kwadwo Moomaw PROCESSES CHEMICAL DESIGN ENGINEER.FRONT END ALIGNMENT SPECIALIST Work Phone: [facility] 01-16-2024 14:56-0400 Body temperature 97.59 [degF] Kwadwo Moomaw PROCESSES CHEMICAL DESIGN ENGINEER.FRONT END ALIGNMENT SPECIALIST Work Phone: [facility] 01-16-2024 14:56-0400 Body weight 110 kg Kwadwo Moomaw PROCESSES CHEMICAL DESIGN ENGINEER.FRONT END ALIGNMENT SPECIALIST Work Phone: [facility] 01-16-2024 14:56-0400 Diastolic blood pressure 87 mm[Hg] Kwadwo Moomaw PROCESSES CHEMICAL DESIGN ENGINEER.FRONT END ALIGNMENT SPECIALIST Work Phone: [facility] 01-16-2024 14:56-0400 Heart rate 81 /min Kwadwo Moomaw PROCESSES CHEMICAL DESIGN ENGINEER.FRONT END ALIGNMENT SPECIALIST Work Phone: [facility] 01-16-2024 14:56-0400 Respiratory rate 18 /min Kwadwo Moomaw PROCESSES CHEMICAL DESIGN ENGINEER.FRONT END ALIGNMENT SPECIALIST Work Phone: [facility] 01-16-2024 14:56-0400 SaO2% (BldA) [Mass fraction] 95 % Kwadwo Moomaw PROCESSES CHEMICAL DESIGN ENGINEER.FRONT END ALIGNMENT SPECIALIST Work Phone: [facility] 01-16-2024 14:56-0400 Systolic blood pressure 124 mm[Hg] Kwadwo Moomaw PROCESSES CHEMICAL DESIGN ENGINEERSabaMARCEL Work Phone: [facility] 12-19-2023 10:00-0400 Body temperature 97.7 [degF] Dr. Sloan Gonzalez Work Phone: [facility] 12-19-2023 10:00-0400 Diastolic blood pressure 85 mm[Hg] Dr. Sloan Gonzalez Work Phone: [facility] 12-19-2023 10:00-0400 Heart rate 55 /min Dr. Sloan Gonzalez Work Phone: [facility] 12-19-2023 10:00-0400 Respiratory rate 14 /min Dr. Sloan Gonzalez Work Phone: [facility] 12-19-2023 10:00-0400 SaO2% (BldA) [Mass fraction] 97 % Dr. Sloan Gonzalez Work Phone: [facility] 12-19-2023 10:00-0400 Systolic blood pressure 130 mm[Hg] Dr. Sloan Gonzalez Work Phone: [facility] 12-18-2023 11:00-0400 Inhaled oxygen flow rate 96 L/min Dr. Sloan Gonzalez Work Phone: [facility] 12-17-2023 17:02-0400 Body height 180.[address] Sloan Gonzalez Work Phone: [facility] 12-17-2023 17:02-0400 Body mass index (BMI) [Ratio] 32.9 kg/m2 Dr. Sloan Gonzalez Work Phone: [facility] 12-17-2023 17:02-0400 Body weight 107.[address] Sloan Gonzalez Work Phone: [facility] 12-17-2023 16:00-0400 Body temperature 98.2 [degF] Dr. Sloan Gonzalez Work Phone: [facility] 12-17-2023 16:00-0400 Diastolic blood pressure 82 mm[Hg] Dr. Sloan Gonzalez Work Phone: [facility] 12-17-2023 16:00-0400 Heart rate 73 /min Dr. Sloan Gonzalez Work Phone: [facility] 12-17-2023 16:00-0400 Respiratory rate 18 /min Dr. Sloan Gonzalez Work Phone: [facility] 12-17-2023 16:00-0400 SaO2% (BldA) [Mass fraction] 95 % Dr. Sloan Gonzalez Work Phone: [facility] 12-17-2023 16:00-0400 Systolic blood pressure 129 mm[Hg] Dr. Sloan Gonzalez Work Phone: [facility] 12-17-2023 13:26-0400 Body height 180.[address] Sloan Gonzalez Work Phone: [facility] 12-17-2023 13:26-0400 Body mass index (BMI) [Ratio] 34 kg/m2 Dr. Sloan Gonzalez Work Phone: [facility] 12-17-2023 13:26-0400 Body weight 110.[address] Sloan Gonzalez Work Phone: [facility] 04-19-2023 12:12-0400 Body height 180.3 cm Peggy Nicole DO Work Phone: [facility] 04-19-2023 12:12-0400 Body weight 108.86 kg Peggy Bonnie DO Work Phone: [facility] 02-16-2023 16:02-0400 Body height 177.8 cm Dae Mastrucci PROCESSES CHEMICAL DESIGN ENGINEER.FRONT END ALIGNMENT SPECIALIST Work Phone: [facility] 02-16-2023 16:02-0400 Body weight 105.69 kg Dae Mastrucci PROCESSES CHEMICAL DESIGN ENGINEER.FRONT END ALIGNMENT SPECIALIST Work Phone: [facility] 02-16-2023 16:02-0400 Diastolic blood pressure 91 mm[Hg] Dae Mastrucci PROCESSES CHEMICAL DESIGN ENGINEER.FRONT END ALIGNMENT SPECIALIST Work Phone: [facility] 02-16-2023 16:02-0400 Heart rate 75 /min Dae Mastrucci PROCESSES CHEMICAL DESIGN ENGINEER.FRONT END ALIGNMENT SPECIALIST Work Phone: [facility] 02-16-2023 16:02-0400 Respiratory rate 18 /min Dae Mastrucci PROCESSES CHEMICAL DESIGN ENGINEER.FRONT END ALIGNMENT SPECIALIST Work Phone: [facility] 02-16-2023 16:02-0400 SaO2% (BldA) [Mass fraction] 97 % Dae Mastrucci PROCESSES CHEMICAL DESIGN ENGINEER.FRONT END ALIGNMENT SPECIALIST Work Phone: [facility] 02-16-2023 16:02-0400 Systolic blood pressure 133 mm[Hg] Dae Mastrucci PROCESSES CHEMICAL DESIGN ENGINEER.FRONT END ALIGNMENT SPECIALIST Work Phone: [facility] 10-15-2021 09:48-0500 Body height 177.8 cm Andre Sernaicino DPM Work Phone: [facility] 10-15-2021 09:48-0500 Body mass index (BMI) [Ratio] 34.29 kg/m2 Andre Kareemicino DPM Work Phone: [facility] 10-15-2021 09:48-0500 Body weight 108.41 kg Andre Sernaicino DPM Work Phone: [facility] 10-14-2021 11:09-0500 Body height 177.8 cm Alda Maria MD Work Phone: [facility] 10-14-2021 11:09-0500 Body mass index (BMI) [Ratio] 34.29 kg/m2 Alda Maria MD Work Phone: [facility] 10-14-2021 11:09-0500 Body temperature 97 [degF] Alda Maria MD Work Phone: [facility] 10-14-2021 11:09-0500 Body weight 108.41 kg Alda Maria MD Work Phone: [facility] 10-14-2021 11:09-0500 Diastolic blood pressure 80 mm[Hg] Alda Maria MD Work Phone: [facility] 10-14-2021 11:09-0500 Heart rate 88 /min Alda Maria MD Work Phone: [facility] 10-14-2021 11:09-0500 Respiratory rate 18 /min Alda Maria MD Work Phone: [facility] 10-14-2021 11:09-0500 SaO2% (BldA) [Mass fraction] 94 % Alda Maria MD Work Phone: [facility] 10-14-2021 11:09-0500 Systolic blood pressure 134 mm[Hg] Alda Maria MD Work Phone: [facility] 10-01-2021 10:18-0500 Body height 177.8 cm Andre Sernaicino DPM Work Phone: [facility] 10-01-2021 10:18-0500 Body mass index (BMI) [Ratio] 34.15 kg/m2 Andre Kareemicino DPM Work Phone: [facility] 10-01-2021 10:18-0500 Body weight 107.96 kg Andre Mendicino DPM Work Phone: [facility] 09-07-2021 17:55-0500 Body temperature 98.49 [degF] Ebunoluwa Wion DO Work Phone: [facility] 09-07-2021 17:55-0500 Body weight 107.96 kg Ebunoluwa Wion DO Work Phone: [facility] 09-07-2021 17:55-0500 Diastolic blood pressure 82 mm[Hg] Ebunoluwa Wion DO Work Phone: [facility] 09-07-2021 17:55-0500 Heart rate 83 /min Ebunoluwa Wion DO Work Phone: [facility] 09-07-2021 17:55-0500 Respiratory rate 16 /min Ebunoluwa Wion DO Work Phone: [facility] 09-07-2021 17:55-0500 SaO2% (BldA) [Mass fraction] 94 % Ebmahamed Wion DO Work Phone: [facility] 09-07-2021 17:55-0500 Systolic blood pressure 129 mm[Hg] Ebmahaemd Bowleson DO Work Phone: [facility] 12-22-2020 18:15-0400 Body Temperature 97.5 [degF] [facility] 12-22-2020 18:15-0400 BP Diastolic 80 mm[Hg] [facility] 12-22-2020 18:15-0400 BP Systolic 144 mm[Hg] [facility] 12-22-2020 18:15-0400 Pulse (Heart Rate) 74 /min [facility] 12-22-2020 18:15-0400 Pulse Oximetry 95 % [facility] 12-22-2020 18:15-0400 Respiratory Rate 20 /min [facility] 12-22-2020 09:00-0400 BMI (Body Mass Index) 28.7 kg/m2 [facility] 12-22-2020 09:00-0400 Body weight 90.[address] [facility] 12-22-2020 09:00-0400 Height 177.[address] [facility] 04-27-2020 11:10-0400 BMI (Body Mass Index) 30.13 kg/m2 [facility] 04-27-2020 11:10-0400 Body Temperature 98.01 [degF] [facility] 04-27-2020 11:10-0400 Body weight 95.25 kg [facility] 04-27-2020 11:10-0400 BP Diastolic 87 mm[Hg] [facility] 04-27-2020 11:10-0400 BP Systolic 141 mm[Hg] [facility] 04-27-2020 11:10-0400 Height 177.8 cm [facility] 04-27-2020 11:10-0400 Pulse (Heart [...] 18:03-0500 Body Temperature 98.71 [degF] Olayinka Morgan [facility] 07-24-2019 18:03-0500 BP Diastolic 81 mm[Hg] [facility] 07-24-2019 18:03-0500 BP Systolic 124 mm[Hg] [facility] 07-24-2019 18:03-0500 Pulse (Heart Rate) 93 /min [facility] 07-24-2019 18:03-0500 Pulse Oximetry 96 % [facility] 07-24-2019 18:03-0500 Respiratory Rate 16 /min [facility] 07-24-2019 16:20-0500 BMI (Body Mass Index) 29.29 kg/m2 Olayinka Morgan [facility] 07-24-2019 16:20-0500 Body weight 95.25 kg [facility] 07-24-2019 16:20-0500 Height 180.3 cm [facility] 06-20-2019 17:42-0400 BMI (Body Mass Index) 29.01 kg/m2 Tomi Uriarte [facility] 06-20-2019 17:42-0400 Body Temperature 98.2 [degF] Tomi Uriarte [facility] 06-20-2019 17:42-0400 Body weight 94.35 kg [facility] 06-20-2019 17:42-0400 BP Diastolic 78 mm[Hg] [facility] 06-20-2019 17:42-0400 BP Systolic 134 mm[Hg] [facility] 06-20-2019 17:42-0400 Height 180.3 cm [facility] 06-20-2019 17:42-0400 Pulse (Heart Rate) 53 /min Tomi Uriarte [facility] 06-20-2019 17:42-0400 Pulse Oximetry 97 % [facility] 06-20-2019 17:42-0400 Respiratory Rate 19 /min Tomi Uriarte [facility] Encounters Encounter Date Encounter Type Care Provider Facility Start: 04-23-2025 Non-patient / Non-visit [facility] Work Phone: Start: 04-22-2025 Non-patient / Non-visit [facility] Work Phone: Start: 04-21-2025 Non-patient / Non-visit Dr. [facility] Work Phone: Start: 04-20-2025 ambulatory [facility] Start: 04-20-2025 End: 04-23-2025 Evaluation and management of inpatient Dr. Umang Arias DO -[facility] Work Phone: Start: 02-18-2025 Non-patient / Non-visit Dr. Tammy Cespedes MD [facility] Work Phone: Start: 02-17-2025 Non-patient / Non-visit Dr. Vu Jean MD -[facility] Work Phone: Start: 02-16-2025 Non-patient / Non-visit Dr. Vu Jean MD -[facility] Work Phone: Start: 02-15-2025 Non-patient / Non-visit Dr. Samantha Leung MD -[facility] Work Phone: Start: 02-15-2025 ambulatory Samantha Leung Facility :[facility] Start: 02-15-2025 End: 02-18-2025 Evaluation and management of inpatient Dr. Samantha Leung MD -[facility] Work Phone: Start: 07-26-2024 End: 07-26-2024 ambulatory PEGGYMika NICOLE Facility:[facility] Start: 07-26-2024 End: 07-26-2024 Patient encounter procedure Diana Robertson APRN.FRONT END ALIGNMENT SPECIALIST Work Phone: [facility] Comment on above: Pain, dental (Primar y Dx) Start: 07-07-2024 End: 07-09-2024 Refill Dhir Diamonds Work Phone: [facility] Comment on above: Refill Request Start: 06-27-2024 End: 06-27-2024 ambulatory Jan LEE Facility:[facility] Start: 06-05-2024 End: 06-05-2024 Distance [employer] Work Phone: [facility] Comment on above: Encounter for comple tion of form with patient (Primary Dx); WHITNEY (generalized anxiety disorder) Start: 05-28-2024 End: 05-29-2024 ambulatory Dhir Diamonds Work Phone: [facility] Comment on above: Donor Suitability Fo li Start: 04-04-2024 End: 04-04-2024 Distance [facility] Peggy PPTV Work Phone: [facility] Comment on above: DDD (degenerative di sc disease), lumbar (Primary Dx); Screening for colon cancer; Hypertension, essential; Alcohol abuse; WHITNEY (generalized anxiety disorder) Start: 01-27-2024 ambulatory Peggymika Dumont O Work Phone: [facility] Comment on above: Valaciclovir Herpes Start: 01-16-2024 End: 01-16-2024 ambulatory PEGGYMika NICOLE Facility:[facility] Start: 01-16-2024 End: 01-16-2024 Patient encounter procedure Kwadwo Spivey PROCESSES CHEMICAL DESIGN ENGINEER.FRONT END ALIGNMENT SPECIALIST Work Phone: [facility] Comment on above: Impacted cerumen of left ear (Primary Dx) Start: 12-19-2023 Non-patient / Non-visit Dr. Félix Gonzalez Work Phone: [facility] Work Phone: Start: 12-18-2023 Non-patient / Non-visit Dr. Félix Gonzalez Work Phone: [facility] Work Phone: Start: 12-17-2023 Non-patient / Non-visit Dr. Félix Gonzalez Work Phone: [facility] Work Phone: Start: 12-17-2023 End: 12-19-2023 Evaluation and management of inpatient Dr. Sloan Gonzalez Work Phone: [facility] Work Phone: Start: 11-01-2023 Refill Peggy Werner Work Phone: [facility] Comment on above: Refill Request Start: 10-20-2023 Refill Peggymika Dumont O Work Phone: [facility] Comment on above: Refill Request Start: 10-06-2023 End: 10-06-2023 ambulatory PEGGY NICOLE Facility:[facility] Start: 09-30-2023 End: 10-01-2023 Emergency department patient visit FLACO THOMAS JESSICA Facility:[facility] Start: 08-17-2023 Refill Peggy Dumont O Work Phone: [facility] Comment on above: Refill Request Start: 08-09-2023 End: 08-09-2023 ambulatory ALECIA BESS Facility:[facility] Start: 08-09-2023 End: 08-09-2023 Patient encounter procedure Jamesse Michael [facility] Comment on above: Uncomplicated alcoho l dependence (HCC) [F10.20] (Primary Dx) Start: 07-28-2023 Chart abstracting Alecia Lundy Work Phone: [facility] Comment on above: Behavioral Health/So cial Work Start: 07-20-2023 Refill Peggy J Bonnie D O Work Phone: [facility] Comment on above: Refill Request Start: 07-19-2023 Telephone encounter Alecia PACHECO Work Phone: [facility] Comment on above: Behavioral Health/So cial Work Start: 07-11-2023 End: 07-11-2023 Distance Health Peggy J Bonnie DO Work Phone: [facility] Comment on above: Cigarette nicotine d ependence with other nicotine-induced disorder (Primary Dx); WHITNEY (generalized anxiety disorder); Hypertension, essential Start: 07-06-2023 ambulatory Peggy J Bonnie D O Work Phone: [facility] Comment on above: Prescription request Start: 06-24-2023 Refill Peggy J Bonnie D O Work Phone: [facility] Comment on above: Refill Request Start: 06-07-2023 End: 06-07-2023 Distance [facility] Peggy J Bonnie DO Work Phone: [facility] Comment on above: Hypertension, essent ial (Primary Dx); Plantar fasciitis, bilateral; Cigarette nicotine dependence with other nicotine-induced disorder Start: 05-16-2023 End: 05-17-2023 ambulatory PEGGY J BONNIE Facility:[facility] Start: 05-16-2023 Encounter for genera l adult medical examination without abnormal findings FLACO LOPEZ [facility] Start: 05-14-2023 Refill Peggy J Bonnie D O Work Phone: [facility] Comment on above: Refill Request Start: 05-13-2023 Get Medical Advice Peggy ruiz DO Work Phone: [facility] Comment on above: Medication refills Start: 04-20-2023 Telephone encounter Alecia PACHECO Work Phone: [facility] Comment on above: Behavioral Health/So cial Work Start: 04-19-2023 End: 04-19-2023 Distance [facility] Peggymika Nicole DO Work Phone: [facility] Comment on above: H/O spinal fusion (P rimary Dx); DDD (degenerative disc disease), lumbar; PTSD (post-traumatic stress disorder); History of alcoholism (HCC); WHITNEY (generalized anxiety disorder); Screening for colon cancer; Preventative health care Start: 04-19-2023 End: 04-19-2023 Patient encounter status Peggy Nicole DO Work Phone: [facility] Work Phone: Start: 02-21-2023 Telephone encounter Dae garcia PROCESSES CHEMICAL DESIGN ENGINEER.FRONT END ALIGNMENT SPECIALIST Work Phone: [facility] Comment on above: Consult (ENT #[id number] ) Start: 02-16-2023 End: 02-16-2023 ambulatory DAE MARI Facility:[facility] Start: 02-16-2023 End: 02-16-2023 Patient encounter procedure Dae Mari PROCESSES CHEMICAL DESIGN ENGINEER.FRONT END ALIGNMENT SPECIALIST Work Phone: [facility] Comment on above: Impacted cerumen of left ear (Primary Dx); Ear drainage, unspecified laterality Start: 02-23-2022 Refill Alda Maria MD Work Phone: [facility] Start: 11-18-2021 Refill Alda Maria MD Work Phone: [facility] Start: 10-15-2021 End: 10-15-2021 ambulatory ANDRE DUONG [facility] Start: 10-15-2021 End: 10-15-2021 Office outpatient visit 15 minutes Andre Duong DPM Work Phone: [facility] Comment on above: Closed fracture of b ase of fifth metatarsal bone of left foot, initial encounter (Primary Dx) Start: 10-14-2021 End: 10-14-2021 ambulatory ALDA MARIA [facility] Start: 10-14-2021 End: 10-14-2021 Office outpatient new 45 minutes Alda Maria MD Work Phone: [facility] Comment on above: Uncomplicated alcoho l dependence (HCC) (Primary Dx); HSV-1 infection; Chronic bilateral low back pain without sciatica; Anxiety with depression Start: 10-09-2021 End: 10-09-2021 Emergency department patient visit PHYSICIAN NATY [facility] Start: 10-01-2021 End: 10-01-2021 ambulatory EBUNOLUWA BOLATITO WION [facility] Ambulatory Start: 10-01-2021 End: 10-01-2021 Office outpatient new 30 minutes Ebunoluwa B Wion DO Work Phone: [facility] Comment on above: Gastrocnemius equinu s, unspecified laterality (Primary Dx); Plantar fasciitis of right foot; Pes planus, unspecified laterality; Peroneal tendonitis, right Start: 09-07-2021 End: 09-07-2021 Office outpatient new 45 minutes Ebunoluwa B Wion DO Work Phone: [facility] [place] Comment on above: Plantar fasciitis of right foot (Primary Dx); Pes planus, unspecified laterality; Peroneal tendonitis, right Start: 12-22-2020 End: 12-22-2020 Emergency department patient visit Violetta Herrera Work Phone: [facility] Comment on above: Depression, unspecif ied depression type (Primary Dx); History of alcohol abuse; Lab test negative for COVID-19 virus Start: 04-27-2020 End: 04-27-2020 Emergency department patient visit Tan Marrero Work Phone: [facility] Comment on above: Partial thickness bu rn of left wrist, initial encounter (Primary Dx) Start: 11-08-2019 End: 11-08-2019 Patient encounter procedure Christian Gabriel Work Phone: [facility] Start: 11-07-2019 End: 11-07-2019 Letter encounter Reed Ferrera [facility] Start: 10-29-2019 End: 10-29-2019 Refill Karrie Willis Work Phone: [facility] Comment on above: Chronic low back keke n, unspecified back pain laterality, unspecified whether sciatica present Start: 10-23-2019 End: 10-23-2019 Telephone encounter Karrie Willis Work Phone: [facility] Comment on above: Information or Advic e only Start: 10-17-2019 End: 10-17-2019 E-mail encounter from carer Karrie Willis Work Phone: [facility] Start: 10-17-2019 Patient encounter procedure Karrie Willis Work Phone: [facility] Comment on above: RE: Prescription Que stion Start: 10-15-2019 End: 10-15-2019 Professional / ancillary services management Negrita BARNES Start: 10-01-2019 End: 10-01-2019 Refill Karrie Willis Work Phone: [facility] Comment on above: Chronic low back keke n, unspecified back pain laterality, unspecified whether sciatica present Start: 10-01-2019 End: 10-01-2019 Refill Karrie Willis Work Phone: [facility] Comment on above: Chronic low back keke n, unspecified back pain laterality, unspecified whether sciatica present Start: 09-25-2019 End: 09-25-2019 Refill Karrie Willis Work Phone: [facility] Comment on above: Chronic low back keke n, unspecified back pain laterality, unspecified whether sciatica present Start: 09-24-2019 End: 09-24-2019 Subsequent hospital visit by physician Karrie Willis Work Phone: [facility] Comment on above: Arrived Start: 09-24-2019 End: 09-24-2019 Patient encounter procedure Christian Gabriel Work Phone: [facility] Start: 09-17-2019 End: 09-17-2019 Subsequent hospital visit [...] visit by physician Ananda Zhang Work Phone: [facility] ([facility]) Start: 08-27-2019 End: 08-27-2019 Subsequent hospital visit by physician Ananda Zhang Work Phone: [facility] Comment on above: Pre-op testing; SVT (supraventricular tachycardia) (HCC) Start: 08-27-2019 End: 08-27-2019 Subsequent hospital visit by physician Karrie Willis Work Phone: [facility] Comment on above: Arrived Start: 08-20-2019 End: 08-20-2019 Subsequent hospital visit by physician Karrie Willis Work Phone: [facility] Comment on above: Arrived Start: 08-08-2019 End: 08-08-2019 Subsequent hospital visit by physician Karrie Willis Work Phone: [facility] Comment on above: Uncomplicated alcoho l dependence (HCC)- sober since 06/2019; Elevated liver enzymes Start: 07-30-2019 End: 07-30-2019 Subsequent hospital visit by physician Karrie Willis Work Phone: [facility] Comment on above: Bradycardia with 41- 50 beats per minute Start: 07-24-2019 End: 07-24-2019 Emergency department patient visit Olayinka Zhou Work Phone: [facility] Emergency Dept Comment on above: Supraventricular tac hycardia (HCC) (Primary Dx) Start: 07-12-2019 End: 07-12-2019 Subsequent hospital visit by physician Karrie Willis Work Phone: [facility] Comment on above: SVT (supraventricula r tachycardia) (HCC) Start: 07-05-2019 End: 07-05-2019 Subsequent hospital visit by physician Karrie Willis Work Phone: [facility] PreAdmission Testing Comment on above: SVT (supraventricula r tachycardia) (HCC); Screening for lipid disorders Start: 06-20-2019 End: 06-20-2019 Emergency department patient visit Tomi Uriarte Work Phone: [facility] Emergency Dept Comment on above: Mood disorder (HCC) (Primary Dx) Start: 06-28-2017 End: 06-29-2017 Patient encounter DARRELL ROMERO [facility] Start: 06-27-2017 Ambulatory DARRELL [facility] Start: 06-11-2017 End: 06-11-2017 Emergency department patient visit NEELA [facility] Procedures Date Procedure Procedure Detail Performing Clinician [...] Start: 02-15-2025 Methadone measurement, urine Dr. Kris Wodo DO Work Phone: Start: 02-15-2025 Estimated creatinine [...] stick/tabl et reagent auto microscopy Nasra Hauser ALOHA Work Phone: Start: 12-22-2020 Basic metabolic pane l calcium total Nasra Hauser ALOHA Work Phone: Start: 12-22-2020 Drug screen quantita tive alcohols Violetta Herrera Work Phone: Start: 12-22-2020 GLOMERULAR FILTRATION RATE Nasra Hauser ALOHA Work Phone: Start: 12-22-2020 Standard ECG Nasra Hauser Ho useholder Work Phone: Start: 12-22-2020 CBC WITH DIFFERENTIAL J theresa Hauser ALOHA Work Phone: Start: 05-15-2020 Adult depression scr [...] Start: 07-24-2019 Assay of phosphorus inorganic Olayinka Zhou Work Phone: Start: 07-24-2019 Assay of troponin [...] Care Activity Detail Author Start: 08-08-2029 Colonoscopy [facility] Start: 08-08-2029 Screening for malignant neoplasm of colon COLORECTAL CANCER SCREENING [facility] Start: 05-16-2028 Lipid 1996 panel - Serum or Plasma Lipid Screening [facility] Start: 05-16-2028 Lipid panel Lipid Screening [facility] Start: 05-16-2028 LIPID SCREEN LIPID SCREEN [facility] Start: 09-30-2026 Diabetes Screening Diabetes Screening [facility] Start: 06-27-2026 Diabetes Screening Diabetes Screening [facility] Start: 05-16-2026 DIABETES SCREEN DIABETES SCREEN [facility] Start: 05-16-2026 Diabetes Screening Diabetes Screening [facility] Start: 07-26-2025 BP Controlled (<130/80) BP Controlled (<130/80) [facility] in Start: 06-05-2025 Annual PCP Team Chronic Disease Visit Annual PCP Team Chronic Disease Visit [facility] Start: 04-23-2025 Patient discharge [facility] Start: 04-21-2025 Following clinical pathway protocol [facility] Start: 04-21-2025 Consultation [facility] Start: 04-20-2025 Ambulation without limitation [facility] Start: 04-20-2025 Assessment of risk of venous thromboembolism [facility] Start: 04-20-2025 Insertion of catheter into peripheral vein [facility] Start: 04-20-2025 Measuring intake and output [facility] Start: 04-20-2025 Providing care according to standard [facility] Start: 04-20-2025 Referral to service [facility] Start: 04-20-2025 Seizure precautions [facility] Start: 04-20-2025 Tobacco use cessation education [facility] Start: 04-20-2025 [facility] Start: 04-20-2025 Verification routine [facility] Start: 04-20-2025 Admission procedure [facility] Start: 04-20-2025 Hospital admission, emergency, from emergency room, medical nature [facility] Start: 04-04-2025 Annual PCP Team Chronic Disease Visit Annual PCP Team Chronic Disease Visit [facility] Start: 02-18-2025 Patient discharge [facility] Start: 02-18-2025 Ultrasonography of abdomen Abdomen Limited [facility] Start: 02-18-2025 US Abdomen limited [facility] Start: 02-16-2025 Hepatic function panel [facility] Start: 02-16-2025 Prothrombin time [facility] Start: 02-16-2025 Serum inorganic phosphate measurement [facility] Start: 02-16-2025 Thyroid stimulating hormone measurement [facility] Start: 02-15-2025 Following clinical pathway protocol [facility] Start: 02-15-2025 Hospital admission, emergency, from emergency room, medical nature [facility] Start: 02-15-2025 End: 02-15-2025 [facility] Start: 02-15-2025 Prothrombin time [facility] Start: 02-15-2025 Admission procedure [facility] Start: 02-15-2025 Ambulation without limitation [facility] Start: 02-15-2025 Assessment of risk of venous thromboembolism [facility] Start: 02-15-2025 Insertion of catheter into peripheral vein [facility] Start: 02-15-2025 Providing care according to standard [facility] Start: 02-15-2025 Verification routine [facility] Start: 02-15-2025 End: 02-15-2025 [facility] Start: 02-15-2025 Consultation [facility] Start: 02-15-2025 Patient referral to dietitian [facility] Start: 12-09-2024 Urine microalbumin profile [facility] Start: 10-06-2024 Annual PCP Team Chronic Disease Visit Annual PCP Team Chronic Disease Visit [facility] Start: 07-11-2024 Annual PCP Team Chronic Disease Visit Annual PCP Team Chronic Disease Visit [facility] Start: 07-05-2024 Fasting lipid profile LIPID SCREENING [facility] Start: 07-05-2024 LIPID SCREEN LIPID SCREEN [facility] Start: 06-05-2024 End: 06-05-2024 ambulatory 06/05/2024 8:40 AM EDT [facility] [address] [place] [address] Peggy Nicole DO [address] [place] [address] [employer]. [facility] Comment on above: [employer]. Start: 05-20-2024 Covid-19 Vaccine ( season) Covid-19 Vaccine () [facility] Start: 05-20-2024 Covid-19 Vaccine () Covid-19 Vaccine () [facility] Start: 05-20-2024 Influenza vaccination [facility] Start: 05-18-2024 End: 05-18-2024 Patient encounter procedure 05/18/2024 11:30 AM EDT Office Visit Otolaryngology [address] [address] Gladis Caban MD [address] [address] Ear drainage, unspecified laterality [H92.10] Otolaryngology Comment on above: Ear drainage, unspecified laterality [H9 2.10] Start: 03-19-2024 End: 03-19-2024 Patient encounter procedure 03/19/2024 2:30 PM EDT Office Visit Otolaryngology [address] [address] Gladis Caban MD [address] [address] Ear drainage, unspecified laterality [H92.10] Otolaryngology Comment on above: Ear drainage, unspecified laterality [H9 2.10] Start: 02-12-2024 Prostate specific antigen measurement Prostate Cancer Screening Discussion [facility] Start: 12-19-2023 Patient discharge [facility] Start: 12-17-2023 Following clinical pathway protocol [facility] Start: 12-17-2023 Assessment of risk of venous thromboembolism [facility] Start: 12-17-2023 Notification of physician [facility] Start: 12-17-2023 Vital signs measurements [facility] Start: 12-17-2023 [facility] Start: 12-17-2023 Admission procedure [facility] Start: 12-17-2023 Hospital admission, emergency, from emergency room, medical nature [facility] Start: 09-19-2023 Behavioral Health Screening Behavioral Health Screening [facility] Start: 09-19-2023 Depression Assessment Depression Assessment [facility] Start: 05-20-2023 Covid-19 Vaccine () Covid-19 Vaccine () [facility] Start: 05-20-2023 Influenza vaccination [facility] Start: 04-19-2023 End: 06-19-2023 Comprehensive metabolic 2000 panel - Serum or Plasma COMP METABOLIC PANEL Lab Routine Preventative health care Expected: 04/19/2023, Expires: 06/19/2023 [facility] Work Phone: Comment on above: Expected: 04/19/2023, Expires: Start: 04-19-2023 End: 06-19-2023 Hemoglobin A1c in Blood HGB A1C Lab Routine Preventative health care Expected: 04/19/2023, Expires: 06/19/2023 [facility] Work Phone: Comment on above: Expected: 04/19/2023, Expires: Start: 04-19-2023 End: 06-19-2023 Lipid 1996 panel - Serum or Plasma LIPID PANEL BASIC Lab Routine Preventative health care Expected: 04/19/2023, Expires: 06/19/2023 [facility] Work Phone: Comment on above: Expected: 04/19/2023, Expires: Start: 09-19-2022 DEPRESSION ASSESSMENT DEPRESSION ASSESSMENT [facility] Start: 05-20-2022 Influenza vaccination Sequential Influenza Vaccine (Season Ended) [facility] Start: 11-02-2021 End: 11-02-2021 Patient encounter procedure 11/02/2021 Office Visit Orthopedic Surgery Andre Duong DPM [address] [place] [address] [facility] Start: 10-14-2021 End: 10-14-2021 Patient encounter procedure 10/14/2021 Office Visit Primary Care Alda Maria MD [address] [place] [address] [facility] Start: 09-22-2021 End: 09-22-2021 Patient encounter procedure 09/22/2021 Office Visit Orthopedic Surgery Andre Duong, ASHLEY [address] [place] [address] [facility] Start: 05-20-2021 Influenza vaccination Sequential Influenza Vaccine (#1) [facility] Start: 05-15-2021 Adult depression screening assessment DEPRESSION SCREENING [facility] Start: 08-08-2020 Adult depression screening assessment [facility] Comment on above: Postponed from 1981 (Provider Ashley vicente) Start: 06-11-2020 DIABETES SCREEN DIABETES SCREEN [facility] Start: 06-04-2020 End: 06-04-2020 Office Visit 06/04/2020 Office Visit Family Medicine Karrie Willis PA [address] [place] [address] [phone] [phone] GALILEA MCCONNELL ADULT Start: 05-20-2020 Influenza vaccination given INFLUENZA VACCINE (#1) [facility] Start: 01-08-2020 End: 01-08-2020 Office Visit 01/08/2020 Office Visit Christian Ann DDS [address] [place] [address] [phone] [facility] Start: 11-27-2019 End: 11-27-2019 Office Visit 11/27/2019 Office Visit Cardiology Ananda Zhang MD [address] [address] [phone] [facility] Start: 11-14-2019 End: 11-14-2019 Office Visit 11/14/2019 Office Visit Family Medicine Karrie Willis PA [address] [place] [address] [phone] HODGESY MCCONNELL ADULT Start: 11-08-2019 End: 11-08-2019 Office Visit 11/08/2019 Office Visit Dentistry Christian Gabriel DDS [address] [place] [address] [phone] [facility] Start: 10-15-2019 End: 10-15-2019 Office Visit 10/15/2019 Office Visit Cardiology Ananda Zhang MD [address] [address] [phone] [facility] Start: 10-01-2019 End: 10-01-2019 Appointment 10/01/2019 Appointment Physical Therapy Karrie Willis PA [address] [place] [address] [phone] Bogdan 6196Sosa PTA [facility] Start: 09-28-2019 End: 09-28-2019 Appointment [facility] Start: 09-24-2019 End: 09-24-2019 Appointment 09/24/2019 Appointment Physical Therapy Karrie Willis PA [address] [place] [address] [phone] Janet Resendiz [id number] PTA [facility] Start: 09-24-2019 End: 09-24-2019 Office Visit 09/24/2019 Office Visit Dentistry Harvey Christian, STEWARTS [address] [place] [address] [phone] [facility] Start: 09-21-2019 End: 09-21-2019 Appointment [facility] Start: 09-14-2019 End: 09-14-2019 Appointment 09/14/2019 Appointment Physical Therapy Karrie Willis PA [address] [place] [address] [phone] Negrita Zamora, BETH, DPT [facility] Start: 09-07-2019 End: 09-07-2019 Appointment 09/07/2019 Appointment Physical Therapy Karrie Willis PA [address] [address] [phone] Sosa Golden PTA [facility] Start: 09-03-2019 End: 09-03-2019 Appointment 09/03/2019 Appointment Physical Therapy Karrie Willis PA [address] [place] [address] [phone] Sosa Golden PTA [facility] Start: 08-31-2019 End: 08-31-2019 Appointment [facility] Start: 08-29-2019 End: 08-29-2019 Hospital Encounter [facility] (OP S) Comment on above: SUPRAVENTRICULAR TACHYCARDIA ABLATION (S [place]) Start: 08-27-2019 End: 08-27-2019 Appointment 08/27/2019 Appointment Physical Therapy Karrie Willis PA [address] [place] [address] [phone] Negrita Zamora, PT, DPT [facility] Start: 08-15-2019 End: 08-15-2019 Office Visit 08/15/2019 Office Visit Family Medicine Karrie Willis PA [address] [place] [address] [phone] GAL[facility] CTY ROMAN ADULT Start: 08-14-2019 End: 08-14-2019 Office Visit 08/14/2019 Office Visit Cardiology Rupesh Franco MD [address] [place] [address] [phone] [facility] Start: 08-09-2019 Screening for malignant neoplasm of colon COLORECTAL CANCER SCREENING [facility] Start: 08-09-2019 End: 08-09-2019 Office Visit 08/09/2019 Office Visit Cardiology Ananda Zhang MD [address] [address] [phone] [facility] Start: 08-08-2019 End: 08-08-2019 Office Visit 08/08/2019 Office Visit Family Medicine Karrie Willis PA [address] [place] [address] [phone] GAY MCCONNELL ADULT Start: 07-30-2019 End: 07-30-2019 Appointment 07/30/2019 Appointment Heart and Vascular Diagnostics Karrie Willis PA [address] [place] [address] [phone] [facility] Start: 07-12-2019 End: 07-12-2019 Appointment 07/12/2019 Appointment [facility] Karrie Willis PA [address] [place] [address] [phone] [facility] Start: 05-20-2019 Influenza vaccination given INFLUENZA VACCINE (#1) [facility] Start: 2019 Administration of herpes zoster vaccine Zoster Vaccines (1 of 2) [facility] Start: 2019 Colonoscopy COLON CANCER SCREENING 9 YEAR COLONOSCOPY [facility] Start: 2019 Screening for malignant neoplasm of colon [facility] Start: 2019 SHINGLES VACCINE (1 of 2) SHINGLES VACCINE (1 of 2) [facility] Start: 2019 SHINGRIX VACCINE (1 of 2) SHINGRIX VACCINE (1 of 2) [facility] Start: 2019 Zoster vaccine hzv live for subcutaneous use ZOSTER (SHINGLES) VACCINE (1 of 2) [facility] Start: 2014 COLOGUARD (FIT-DNA) COLOGUARD (FIT-DNA) [facility] Start: 2014 Colonoscopy COLONOSCOPY [facility] Start: 2014 COLORECTAL CANCER SCREENING COLORECTAL CANCER SCREENING [facility] Start: [address] COLONOGRAPHY [facility] Start: 2014 FECAL OCCULT BLOOD FECAL OCCULT BLOOD [facility] Start: 2014 Screening for malignant neoplasm of colon [facility] Start: 2014 SIGMOIDOSCOPY SIGMOIDOSCOPY [facility] Start: 1990 Tetanus, diphtheria and acellular pertussis vaccination TDAP/TD ADULT [facility] Start: 02-12-1988 Hepatitis B Vaccine (1 of 3 - 19+ 3-dose series) Hepatitis B Vaccine (1 of 3 - 19+ 3-dose series) [facility] Start: 1987 ANNUAL WELLNESS VISIT ANNUAL WELLNESS VISIT [facility] Start: 1987 Anxiety Screening Anxiety Screening [facility] Start: 1987 BP Controlled (<130/80) BP Controlled (<130/80) [facility] Start: 1987 Depression Screening Depression Screening [facility] Start: 1987 Hepatitis C screening Hepatitis C Screening [facility] Start: 1987 HEPATITIS C SCREENING HEPATITIS C SCREENING [facility] Start: 1987 HIV SCREENING HIV SCREENING [facility] Start: 1987 HIV screening HIV Screening [facility] Start: 1987 WELLNESS ANNUAL VISIT WELLNESS ANNUAL VISIT [facility] Start: 02-12-1984 HIV screening HIV Screening [facility] Start: 1981 Adult depression screening assessment PHQ9 DEPRESSION SCREENING [facility] Start: 1981 Depression screening using PHQ-9 (Patient Health Questionnaire 9) score Depression Screening (PHQ-2/9) [facility] Start: 02-12-1980 Diphtheria + pertussis + tetanus vaccine (product) DTAP/TDAP/TD VACCINE (1 - Tdap) [facility] Start: 1975 PNEUMOCOCCAL (1 - PCV) PNEUMOCOCCAL (1 - PCV) [facility] Start: 1975 [facility]neum[facility] Start: 1975 Pneumococcal Vaccine: Ped or At-Risk (1 - PCV) Pneumococcal Vaccine: Ped or At-Risk (1 - PCV) [facility] Start: 1975 Pneumococcal Vaccine: Ped or At-Risk (1 of 2 - PPSV23) Pneumococcal Vaccine: Ped or At-Risk (1 of 2 - PPSV23) [facility] Start: 1974 COVID-19 Vaccine (#1) COVID-19 Vaccine (#1) [facility] Start: 1974 COVID-19 Vaccine (1) COVID-19 Vaccine (1) [facility] Start: 02-12-1972 History and physical examination, annual for health maintenance Wellness Visit [facility] Start: 1969 COVID-19 VACCINE (#1) COVID-19 VACCINE (#1) [facility] Start: 1969 COLON CANCER SCREENING ANNUAL FOBT COLON CANCER SCREENING ANNUAL FOBT [facility] Start: 1969 HEPATITIS B (1 of 3 - 3-dose series) HEPATITIS B (1 of 3 - 3-dose series) [facility] Start: 1969 Hepatitis B Vaccine (1 of 3 - 3-dose series) Hepatitis B Vaccine (1 of 3 - 3-dose series) [facility] Start: 1969 Prostate specific antigen measurement PSA Level [facility] Start: 1969 Tetanus vaccination Tetanus: Every 10yrs [facility] Alanine aminotransfe rase [Enzymatic activity/volume] in Serum or Plasma [facility] Albumin [Mass/volume ] in Serum or Plasma [facility] Alkaline phosphatase [Enzymatic activity/volume] in Serum or Plasma [facility] Amphetamines [Presen ce] in Urine by Screen method >1000 ng/mL [facility] Amphetamines [Presen ce] in Urine by Screen method >1000 ng/mL [facility] Anion gap in Serum o r Plasma [facility] Benzodiazepine measurement, urine [facility] Benzodiazepine measurement, urine [facility] Bilirubin, total measurement [facility] Bilirubin.direct [Mass/volume] in Serum or Plasma [facility] BUN/Creatinine ratio [facility] Calcium [Mass/volume ] in Serum or Plasma [facility] Carbon dioxide, tota l [Moles/volume] in Central venous blood [facility] End: 07-30-2019 Cardiac Event Monitor - 30 Day Cardiac Event Monitor - 30 Day Cardiac Services Routine Bradycardia with 41-50 beats per minute 1 Occurrences starting 07/30/2019 until 07/30/2019 [facility] Comment on above: 1 Occurrences starting 07/30/2019 until 07/30/2019 Cardiac Event Monito r - 30 Day Cardiac Event Monitor - 30 Day Cardiac Services Routine Bradycardia with 41-50 beats per minute 07/30/2019 12:24 PM EST [facility] Cocaine measurement, urine [facility] Cocaine measurement, urine [facility] COLOGUARD COLOGUARD Lab Ro utine Screening for colon cancer Ordered: 04/19/2023 [facility] Work Phone: Comment on above: Ordered: 04/19/2023 COLOGUARD COLOGUARD Lab Ro utine Screening for colon cancer Ordered: 04/04/2024 [facility] Work Phone: Comment on above: Ordered: 04/04/2024 Creatinine [Mass/vol ume] in Serum or Plasma [facility] End: 07-12-2019 Echocardiogram complete (M-Mode/2D) Echocardiogram complete (M-Mode/2D) Echocardiography Routine SVT (supraventricular tachycardia) (HCC) 1 Occurrences starting 07/12/2019 until 07/12/2019 [facility] Comment on above: 1 Occurrences starting 07/12/2019 until 07/12/2019 Echocardiogram compl ete (M-Mode/2D) Echocardiogram complete (M-Mode/2D) Echocardiography Routine SVT (supraventricular tachycardia) (HCC) 07/12/2019 8:28 AM EDT [facility] Erythrocyte mean corpuscular volume determination [facility] fentaNYL [Presence] in Urine by Screen method [facility] fentaNYL [Presence] in Urine by Screen method [facility] Glucose [Mass/volume ] in Serum or Plasma [facility] Hematocrit [Volume Fraction] of Blood [facility] Hemoglobin [Mass/vol ume] in Blood [facility] End: 07-12-2019 Holter Monitor Complete - 24 Hour Holter Monitor Complete - 24 Hour Cardiac Services Routine SVT (supraventricular tachycardia) (HCC) 1 Occurrences starting 07/12/2019 until 07/12/2019 [employer] Comment on above: 1 Occurrences starting 07/12/2019 until 07/12/2019 Holter Monitor Compl ete - 24 Hour Holter Monitor Complete - 24 Hour Cardiac Services Routine SVT (supraventricular tachycardia) (HCC) 07/12/2019 9:55 AM EDT [facility] INR in Blood by Coagulation assay [facility] INR in Blood by Coagulation assay [facility] Leukocytes [#/volume ] in Blood [facility] Magnesium measurement [facility] Mean corpuscular hemoglobin concentration determination [facility] Mean corpuscular hemoglobin determination [facility] Measurement of renal function [facility] Methadone measuremen t, urine [facility] Methadone measuremen t, urine [facility] Neutrophil count [facility] Neutrophil percent differential count [facility] Oxygen Therapy Nasal Cannula; Liters Per Minute: 2.0 LPM; RT may modify oxygen administration per policy: Yes Maintain O2 sats > 92% Oxygen Therapy Nasal Cannula; Liters Per Minute: 2.0 LPM; RT may modify oxygen administration per policy: Yes Maintain O2 sats > 92% Respiratory Care Routine As Needed until discontinued starting 08/29/2019 [employer] Comment on above: As Needed until discontinued starting Patient Education Alcohol Withdr awal: What to Expect ED Withdrawal Alcohol [facility] Work Phone: Patient referral [facility] Work Phone: Phencyclidine [Prese nce] in Urine [facility] Phencyclidine [Prese nce] in Urine [facility] Platelets [#/volume] in Blood [facility] End: 08-29-2019 POCT glucose - for diabetic patients POCT glucose - for diabetic patients Point of Care Testing Routine One Time for 1 Occurrences starting 08/29/2019 until 08/29/2019 [employer] Comment on above: One Time for 1 Occurrences starting 08/19 until 08/29/2019 Potassium measurement [facility] [facility] Pulse oximetry, continuous Pulse oximetry, continuous Respiratory Care Routine Continuous until discontinued starting 08/29/2019 [employer] Comment on above: Continuous until discontinued starting 1 10/30/2018 Red blood cell count [facility] Red cell distributio n width determination [facility] Serum chloride measurement [facility] Sodium measurement [facility] Standard ECG [facility] Comment on above: As Needed until discontinued starting Total protein measurement [facility] End: 07-24-2019 Troponin I.cardiac [Mass/Vol] Troponin I Lab Timed Now Then Every 3hr for 2 Occurrences starting 07/24/2019 until 07/24/2019 [facility] Comment on above: Now Then Every 3hr for 2 Occurrences sta rting 07/24/2019 until 07/24/2019 Troponin T.cardiac [Mass/volume] in Serum or Plasma by High sensitivity method [facility] Troponin T.cardiac [Mass/volume] in Serum or Plasma by High sensitivity method [facility] Urea nitrogen [Mass/volume] in Serum or Plasma [facility] Urine cannabinoid measurement [facility] Urine cannabinoid measurement [facility] Urine opiate measurement [facility] Urine opiate measurement [facility] Immunizations Immunization Date Immunization Notes Care Provider Mecca cortés 08-20-2019 influenza virus vaccine, unspecified formulation Tan Marrero [facility] 12-09-2014 tetanus toxoid, reduced diphtheria toxoid, and acellular pertussis vaccine, adsorbed Dae 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 2021 Medicaid [id number] 2021 Unknown [id number] 2019 Medicaid [id number] 2019 Medicaid APRILNORMAJAMA MERCADO O [id number] 2019-Present [address] [place] [address] Medicaid [id number]. [id number] 1970 Unknown [id number] [id number] 1969 Unknown [id number] 2.16.840.1.340936.3.579.2.903 1969 Unknown [id number] 2.16.840.1.150002.3.579.2.903 1969 Unknown [id number] 2.16.840.1.857579.3.579.2.903 Medicaid [id number] [id number]. [id number] Unknown [id number] 2.16.840.1.198503.3.579.2.462 Unknown [id number] 2.16840.1.524445.3.579.2.462 Unknown [id number] 2.840.1.691658.3.579.2.462 Unknown [id number] 2.16840.1.054236.3.579.2.462 Unknown [id number] 2.16.840.1.038854.3.579.2.462 Unknown [id number] 2.16.840.1.889907.3.579.2.462 Unknown [id number] 2.16.840.1.867827.3.579.2.462 Unknown [id number] 2.16840.1.011964.3.579.2.462 Unknown [id number] 2.16840.1.863079.3.579.2.462 Unknown [id number] 2.16840.1.840609.3.579.2.462 Unknown [id number] 2.16840.1.448934.3.579.2.462 Social History Date Type Detail Facility Tobacco smoking stat [facility] Unknown if ever smoked [facility] Start: 1970 Sex Assigned At Not on file [facility] Start: 07-04-2019 End: 04-21-2025 Tobacco smoking status NHIS Current every day smoker [facility] History of tobacco use [facility] Start: 07-04-2019 End: 03-19-2024 Cigarettes smoked current (pack per day) - Reported [facility] Start: 07-04-2019 End: 07-26-2024 Alcohol intake Ex-drinker (finding) [facility] Start: 07-04-2019 History SDOH Alcohol Frequency 5 [facility] Start: 07-04-2019 Tobacco Comment interesting in quitting 07/04/19 [facility] Start: 07-04-2019 Alcohol Comment 1/5 of vodka daily- reports last drink was 15 days ago 07/04/19 [facility] Start: 08-09-2019 Tobacco Comment interesting in quitting 07/04/19spring [facility] Start: 07-24-2019 Alcohol Comment 1/5 of vodka daily- reports last drink was 07/04/19 [facility] Start: 04-27-2020 Tobacco smoking status NHIS Former smoker [facility] Start: 04-27-2020 End: 04-19-2023 Tobacco use and exposure Never used [facility] Start: 12-31-2019 Tobacco Comment quit 2 weeks ago 12/31/19 [facility] Start: 11-21-2019 Alcohol Comment sober for 5 months 11/21/19 [facility] Start: 12-22-2020 Alcohol intake Current drinker of alcohol (finding) [facility] Exposure to SARS-CoV -2 (event) Not sure [facility] Exposure to SARS-CoV -2 (event) Yes [facility] Start: 1970 End: 03-19-2024 Sex Assigned At [facility] Start: 02-16-2023 Alcohol Comment 41 days sober [facility] Adult Depression Screening Assessment 0 [facility] Start: 04-19-2023 Tobacco Comment 3-5 cigs currently [facility] Start: 12-17-2023 End: 12-18-2023 Tobacco smoking status NHIS Unknown if ever smoked [facility] Start: 1970 Sex Assigned At Male [facility] Start: 07-21-2024 Gender identity Identifies as male gender (finding) [facility] Start: 07-21-2024 Sexual orientation Heterosexual (finding) [facility] Medical Equipment Procedure Code Equipment Code Equipment Original Text Equi pment Identifier Dates Procedure Implant ([id number]) Goals Date Patient Goal Desired Activity /State Functional Status Date Assessment Result Facility 04-23-2025 Functional status Activity Ability Indepe ndent [facility] Work Phone: 04-22-2025 Functional status Ambulates [facility] Work Phone: 02-18-2025 Functional status Ambulates;Up ad janeth [facility] Work Phone: 12-19-2023 Functional status Ambulates [facility] Work Phone: Mental Status Date Assessment Result Facility 04-22-2025 Cognitive function Voice/Name [facility] Work Phone: 02-18-2025 Cognitive function Voice/Name [facility] Work Phone: 02-17-2025 Cognitive function Appropriate;Cooperativ e [facility] Work Phone: 12-19-2023 Cognitive function Patient Behavior Anxio us [facility] Work Phone: 12-18-2023 Cognitive function Voice/Name [facility] Work Phone: Clinical Notes 09-07-2021 to 04-23-2025 Note Date & Type Note Facility 04-23-2025 Note [facility] Medical Records Department [address] [place] [address] Discharge Summary 04/23/25 1114 MR#: [id number] Acct: [id number] Name: SLOAN HARVEY Rep #: [id number] : 1970 55 From: Cristina Salas DO PCP: Dr. Peggy Nicole DO Status:DIS IN Location: [place] [address]-1 Providers Date of Admission: 04/20/25 Date of [...] 55-year-old white male who presents emergency department [facility] on 04/20/2025 requesting detox from alcohol. [...] discharge him home with outpatient follow-up at [facility] for IOP and psychiatry on 04/23/2025 he [...] and no cl (more content not included)... [facility] 04-23-2025 Consult note [facility] 04-23-2025 Discharge summary Note Date/Time April 23, 2025 8:56am [facility] Medical Records Department [address] [place] [address] Discharge Summary 04/23/25 0740 MR#: [id number] Acct: [id number] Name: SLOAN HARVEY Rep #:[id number] : 1970 55 From: Cristina Salas DO PCP: Dr. Peggy Nicole DO Status:ADM IN Location: [place] [address]-1 Providers Date of Admission: 04/20/25 Primary Care [...] Nicole DO; Dr. Cristina Salas DO~ Signed [facility] Work Phone: 1(576) 100-407008-05-2025 Discharge summary [facility] Medical Records Department [address] [place] [address] Discharge Summary 04/23/25 0740 MR#: [id number] Acct: [id number] Name: SLOAN HARVEY Rep #:[id number] : 1970 55 From: Cristina Salas DO PCP: Dr. Peggy Nicole DO Status:ADM IN Location: [place] [address]-1 Providers Date of Admission: 04/20/25 Primary Care [...] Nicole DO; Dr. Cristina Salas DO~ Signed [facility]08-05-2025 [facility] Medical Records Department [address] [place] [address] Discharge Summary 04/23/25 0740 MR#: [id number] Acct: [id number] Name: SLOAN HARVEY Rep #: [id number] : 1970 55 From: Cristina Salas DO PCP: Dr. Peggy Nicole DO Status:ADM [facility] Prov[facility] Date of Admission: 04/20/25 Primary Care [...] Peggy Nicole DO; [facility] Crist[facility] Progress note Author Cristina Salas [facility] Note Date/Time April 22, 2025 2:5 8pm [facility] Medical Records Department [address] [place] [address] Progress Note - Hospitalist 04/22/25 1456 MR#: [id number] Acct: [id number] Name: SLOAN HARVEY Rep #:[id number] : 1970 55 From: Cristina Salas DO PCP: Dr. Peggy Nicole DO Status:ADM IN Location: [place] [address]-1 Reason for Visit Chief Complaint: Requesting EtOH [...] Full code Charges/Coding Visit Charges Inpatient E&M: 33430 Subs Hosp L1 04/22/25 1458 <Electronically signed by Cristina Salas DO> Chanelleigner Signature (if applicable): CC: ~ Signed [facility] Work Phone: 1(837) 721-563108-04-2025 Progress note [facility] Medical Records Department [address] [place] [address] Progress Note - Hospitalist 04/22/25 145 MR#: [id number] Acct: [id number] Name: SLOAN HARVEY Rep #:[id number] : 1970 55 From: Cristina Salas DO PCP: Dr. Peggy Nicole, DO Status:ADM IN Location: MS3 FH401-6 Reason for Visit Chief Complaint: Requesting EtOH [...] Full code Charges/Coding Visit Charges Inpatient E&M: 25661 Subs Hosp L1 04/22/25 1458 Cosigner Signature (if applicable): CC: ~ Signed [facility]08-03-2025 Progress note Author Cristina Salas [facility] Note Date/Time April 21, 2025 3:0 2pm [facility] Medical Records Department [address] [place] [address] Progress Note - Hospitalist 04/21/25 0723 MR#: [id number] Acct: [id number] Name: SLOAN HARVEY Rep #:[id number] : 1970 55 From: Cristina Salas DO PCP: Dr. Peggy Nicole DO Status:ADM IN Location: [place] [address]342-1 Reason for Visit Chief Complaint: Requesting EtOH [...] % (Auto) 63.0, Lymph % (Auto) 20.1, Ralls % (Auto) 6.3, Eos % (Auto) 8.9 [...] % (Auto) 59.2, Lymph % (Auto) 23.3, Ralls% (Auto) 7.0, Eos % (Auto) 9.2 H, [...] Full code Charges/Coding Visit Charges Inpatient E&M: 43414 Subs Hosp L1 04/21/25 1502 <Electronically signed by Cristina Salas DO> Cosigner Signature (if applicable): CC: ~ Signed [facility] Work Phone: 1(809) 845-418708-03-2025 Progress note [facility] Medical Records Department [address] [place] [address] Progress Note - Hospitalist 04/21/25 0723 MR#: [id number] Acct: [id number] Name: SLOAN HARVEY Rep #:[id number] : 1970 55 From: Cristina Salas DO PCP: Dr. Peggy Nicole DO Status:ADM IN Location: [place] [address]-1 Reason for Visit Chief Complaint: Requesting EtOH [...] % (Auto) 63.0, Lymph % (Auto) 20.1, Ralls % (Auto) 6.3, Eos % (Auto) 8.9 [...] % (Auto) 59.2, Lymph % (Auto) 23.3, Ralls% (Auto) 7.0, Eos % (Auto) 9.2 H, [...] Full code Charges/Coding Visit Charges Inpatient E&M: 50579 Subs Hosp L1 04/21/25 1502 Cosigner Signature (if applicable): CC: ~ Signed [facility]08-03-2025 History and physical note Author Umang Mckoy [facility] Note Date/Time April 21, 2025 5:5 9am [facility] Medical Records Department [address] [place] [address] H&P Exam - Hospitalist 04/20/256 MR#: [id number] Acct: [id number] Name: SLOAN HARVEY Rep #:[id number] : 1970 55 From: Umang Krishnan DO PCP: Dr. Peggy Nicole DO Status:ADM IN Location: [facility] VC315-1 HPI - General General Date of Admission: [...] for treatment of EtOH detox whore-presents to [facility] ER once again requesting EtOH detox. [...] is expected to extend beyond 2 midnights. [facility] Medical History Polysubstance abuse Anxiety [...] % (Auto) 63.0, Lymph % (Auto) 20.1, Ralls % (Auto) 6.3, Eos % (Auto) 8.9 [...] 75 minutes. Charges/Coding Visit Charges Inpatient E&M: 50562 Init Hosp L3 04/21/25 0559 <Electronically signed by Umang Arias DO> Cosigner Signature (if applicable): CC: Dr. Peggy Nicole DO; Dr. Umang Arias DO~ Signed [facility] Work Phone: 1(430) 877-931608-03-2025 History and physical note [facility] Medical Records Department [address] [place] [address] H&P Exam - Hospitalist 04/20/252205 MR#: [id number] Acct: [id number] Name: SLOAN HARVEY Rep #:[id number] : 1970 55 From: Umang Krishnan DO PCP: Dr. Peggy Nicole DO Status:ADM IN Location: [facility] IC552-7 HPI - General General Date of Admission: [...] for treatment of EtOH detox whore-presents to [facility] ER once again requesting EtOH detox. [...] is expected to extend beyond 2 midnights. [facility] Medical History Polysubstance abuse Anxiety [...] % (Auto) 63.0, Lymph % (Auto) 20.1, Ralls % (Auto) 6.3, Eos % (Auto) 8.9 [...] 75 minutes. Charges/Coding Visit Charges Inpatient E&M: 67592 Init Hosp L3 04/21/25 0559 Cosigner Signature (if applicable): CC: Dr. Peggy Nicole DO; Dr. Umang Arias DO~ Signed [facility]08-03-2025 Discharge summary Author Lucretia Hunter [facility] Note Date/Time April 20, 2025 10: 29pm [facility] Medical Records Department [address] [place] [address] Emergency Department Summary 04/20/25 MR#: [id number] Acct: [id number] Name: SLOAN HARVEY Rep #:[id number] : [...] <ROSA Araya - Last Filed: 04/20/25 21:55> [facility] Medical History Polysubstance abuse Anxiety [...] <ROSA Araya - Last Filed: 04/20/25 21:55> [facility] MDM Narrative Medical decision making narrative: Patient [...] % (Auto) 63.0 Lymph % (Auto) 20.1 Ralls % (Auto) 6.3 Eos % (Auto) 8.9 [...] % (Auto) 63.0 Lymph % (Auto) 20.1 Ralls % (Auto) 6.3 Eos % (Auto) 8.9 [...] Desire for detoxification, Alcohol abuse Disposition Disposition: [facility] What to do if you have Problems For any increased pain, shortness of breath, bleeding, nausea or vomiting, chest pain, or any unexpected problems, contact your Primary Care Provider. Call [facility] ([phone]) or report to the closest Emergency Room. Call 911 if necessary. 04/20/252154 <Electronically signed by Lucretia LEE> Cosigner Signature (if applicable): 04/20/252228 <Electronically signed by Alfa Beckham MD> CC: Dr. Peggy Nicole DO ~ Signed [facility] Work Phone: 1(269) 918-118408-02-2025 Discharge summary [facility] Medical Records Department [address] [place] [address] Emergency Department Summary 04/20/25 MR#: [id number] Acct: [id number] Name: SLOAN HARVEY Rep #:[id number] : [...] this evening, he is not currently withdrawing. [facility] Medical History Polysubstance abuse Anxiety Depression [...] % (Auto) 63.0 Lymph % (Auto) 20.1 Ralls % (Auto) 6.3 Eos % (Auto) 8.9 [...] % (Auto) 63.0 Lymph % (Auto) 20.1 Ralls % (Auto) 6.3 Eos % (Auto) 8.9 [...] Alcohol abuse Disposition Disposition: [facility] What to do if you have Problems For any increased pain, shortness of breath, bleeding, nausea or vomiting, chest pain, or any unexpected problems, contact your Primary Care Provider. Call [facility] ([phone]) or report to the closest Emergency Room. Call 911 if necessary. 04/20/252154 Cosigner Signature (if applicable): 04/20/252228 CC: Dr. Peggy Nicole DO ~ Signed [facility]08-02-2025 Discharge summary Author Lucretia Hunter [facility] Note Date/Time April 20, 2025 10: 29pm [facility] Medical Records Department [address] [place] [address] Emergency Department Summary 04/20/25 MR#: [id number] Acct: [id number] Name: SLOAN HARVEY Rep #:[id number] : [...] this evening, he is not currently withdrawing. [facility] <ROSA Araya - Last Filed: 04/20/25 21:55> [facility] Medical History Polysubstance abuse Anxiety [...] <ROSA Araya - Last Filed: 04/20/25 21:55> [facility] Narrative Medical decision making narrative: Patient [...] % (Auto) 63.0 Lymph % (Auto) 20.1 Ralls % (Auto) 6.3 Eos % (Auto) 8.9 [...] % (Auto) 63.0 Lymph % (Auto) 20.1 Ralls % (Auto) 6.3 Eos % (Auto) 8.9 [...] Alcohol abuse Disposition Disposition: [facility] What to do if you have Problems For any increased pain, shortness of breath, bleeding, nausea or vomiting, chest pain, or any unexpected problems, contact your Primary Care Provider. Call [facility] ([phone]) or report to the closest Emergency Room. Call 911 if necessary. 04/20/252154 <Electronically signed by Lucretia LEE> Cosigner Signature (if applicable): 04/20/252228 <Electronically signed by Alfa Beckham MD> CC: Dr. Peggy Nicole DO ~ Signed [facility] Work Phone: 1(443) 470-131906-02-2025 Discharge summary [facility] Medical Records Department [address] [place] [address] Instructions for Home/Discharge Instructions 02/18/25 1059 MR#: [id number] Acct: [id number] Name: SLOAN HARVEY Rep #:[id number] : [...] DO; Dr. Vu Jean MD ~ Signed [facility]06-02-2025 [facility] Medical Records Department [address] [place] [address] Discharge Summary 02/18/25 1244 MR#: [id number] Acct: [id number] Name: SLOAN HARVEY Rep #: [id number] : 1970 55 From: Tammy Cespedes MD PCP: Dr. Peggy Nicole DO Status:DIS IN Location: [place] [address]-1 Providers Date of Admission: 02/15/25 Date of [...] hepatic steatosis. No acute cholecystitis. Reading Location: [id number] D/C Instructions Discharge Diet: Low fat / [...] applicable Ischemic Stroke Stati (more content not included)...[facility]06-01-2025 Progress note Author Vu Jean [facility] Note Date/Time February 17, 2025 4:09p m [facility] Medical Records Department [address] [place] [address] Progress Note - Hospitalist 02/17/25 1606 MR#: [id number] Acct: [id number] Name: SLOAN HARVEY Rep #:[id number] : 1970 55 From: Vu Dumont PCP: Dr. Peggy Nicole, DO Status:ADM IN Location: [place] [address]-1 Reason for Visit Reason for Visit: Diagnoses [...] #Alcohol use disorder - Monitoring based on [facility] protocol - Symptom management using gabapentin, dicyclomine, [...] Ratio 1.4 Charges/Coding Visit Charges Inpatient E&M: 23285 Subs Hosp L2 02/17/25 1609 <Electronically signed by Vu Jean MD> Cosigner Signature (if applicable): CC: ~ Signed [facility] Work Phone: 1(895) 831-247106-01-2025 Progress note [facility] Medical Records Department [address] [place] [address] Progress Note - Hospitalist 02/17/25 1606 MR#: [id number] Acct: [id number] Name: SLOAN HARVEY Rep #:[id number] : 1970 55 From: Vu Dumont PCP: Dr. Peggy Nicole, DO Status:ADM IN Location: [place] [address] Reason for Visit Reason for Visit: Diagnoses [...] #Alcohol use disorder - Monitoring based on [facility] protocol - Symptom management using gabapentin, dicyclomine, [...] Ratio 1.4 Charges/Coding Visit Charges Inpatient E&M: 16894 Subs Hosp L2 02/17/25 1609 Cosigner Signature (if applicable): CC: ~ Signed [facility]05-31-2025 Progress note Author Vu Jean [facility] Note Date/Time February 16, 2025 5:11p [facility] Medical Records Department [address] [place] [address] Progress Note - Hospitalist 02/16/25 0749 MR#: [id number]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 Information to Report [facility] [employer] Progress note No Information to Report [facility] [employer] Reason for referral (narrative)No reason for referral information availableWBarberton [facility] Work Phone: Summary Purpose Family History No Family History Records Found Relationship Condition Age at Onset Recorded Date/T bennett Not Specified Alcoholism Unknown Advance Directives No Advanced Directives Records FoundDocuments on File Type Date Recorded Patient Associate Merchant Expl anation Advance Directives and Living Will Power of Patient Financial Representative Documents on File Type Date Recorded Patient Associate Merchant Expl anation Advance Directives and Living Will Power of Patient Financial Representative Documents on File Type Date Recorded Patient Associate Merchant Expl anation Advance Directives and Living Will Advance Directives and Living Will 08/29/2019 10:59 AM 08/29/19 - No Ad Power of Patient Financial Representative Latest Code Status on File Code Status Date Activated Date Inactivated Comments Full Code 08/29/2019 10:03 AM Documents on File Type Date Recorded Patient Associate Merchant Expl anation Advance Directives and Living Will Advance Directives and Living Will 08/29/2019 10:59 AM 08/29/19 - No Ad Power of Patient Financial Representative Latest Code Status on File Code Status Date Activated Date Inactivated Comments Full Code 08/29/2019 10:03 AM 08/30/2019 12:57 AM Documents on File Type Date Recorded Patient Associate Merchant Expl anation Advance Directives and Living Will Power of Patient Financial Representative Advance Directives and Living Will 08/29/2019 10:59 AM 08/29/19 - No Ad Documents on File Type Date Recorded Patient Associate Merchant Expl anation Advance Directives and Living Will Documents on File Type Date Recorded Patient Associate Merchant Expl anation Advance Directives and Living Will Documents on File Type Date Recorded Patient Associate Merchant Expl anation Advance Directives and Livin g Will 10/09/2021 3:45 PM Advance Directive Response Recorded Date/ Time Living Will No December 17, 2023 2:21pm Power of Patient Financial Representative No December 16 2:21pm Advance Directive Response Recorded Date/ Time Living Will No December 17, 2023 5:02pm Power of Patient Financial Representative No December 16 5:02pm Advance Directive Response Recorded Date/ Time Do you have a Healthcare Power of Patient Financial Representative? No February 15, 2025 4:06pm Advance Directive Response Recorded Date/ Time Do you have a Healthcare Power of Patient Financial Representative? No February 15, 2025 6:28pm Advance Directive Response Recorded Date/ Time Do you have a Healthcare Power of Patient Financial Representative? No April 20, 2025 9:25pm Do you have a Healthcare Power of Patient Financial Representative? No February 15, 2025 6:28pm Advance Directive Response Recorded Date/ Time Do you have a Healthcare Power of Patient Financial Representative? No April 21, 2025 12:00am Do you have a Healthcare Power of Patient Financial Representative? No February 15, 2025 6:28pm Discharge Instructions * Attachments The following attachments cannot be sent through Care Everywhere. * Mood Disorders: General Info (Lithuanian Argentine) documented in this encounter* Instructions* Negrita Zamora, PT, DPT - 08/20/2019 After Hours Care Information Please dial 911 or report to the closest emergency department for emergencies outside of the department s normal business hours. For non-emergency questions or concerns, the patient may call the office on the next business day at [phone] or call the [facility] NurseLine at [phone] or . When to stay home: We [...] including impetigo, ringworm, unexplained rashes, or shingles Ringo eye or any other illness that may be given to other therapy participants or therapists Severe respiratory infections, sore throat, severe colds or flu Blood pressure above 160/100 While under the influence of alcohol, non-prescribed/recreational drug(s), or illegal substance(s) If you have any questions regarding whether you should attend therapy, please call your therapist at [phone]. The Rehab staff reserves the right to [...] or cancellations may result in such discharge. [facility] OUTPATIENT [facility]IL[facility] PAYMENT POLICY I UNDERSTAND I [...] is needed, please call Resource Counseling at [phone] or [phone]. documented in this encounter* Instructions* Regina Bearden, RN - 08/29/2019 [facility] Electrophysiology [...] have a regular appointment scheduled with your central supply technician supervisor, the hospital nurse will make an appointment for you prior to discharge. ? If you do not have a regular appointment scheduled with your primary care physician, the hospitalnurse will make an appointment for you prior to discharge. IF YOU HAVE A PACEMAKER or DEFIBRILLATOR: o You will need routine device clinic checks with your central supply technician supervisor approximately every 3-6 months.If you do not receive an appointment to have your device checked within 3 months after the device is implanted, please contact your central supply technician supervisor. o Replacement of the generator is performed [...] your doctor if you can take an wdyz-[id number]-[id number] medicine. If you think your pain medicine [...] Where can you learn more? Go to [email or web address]://[email or web address].net/patientEd Enter G817 in the search box to learn more about Sedation for a Medical Procedure: Care Instructions. Current as of: August 31, 2018 Content Version: 12.3 [id number] [employer]. Care instructions adapted under license by your healthcare professional. If you have questions about a medical condition or this instruction, always ask your healthcare professional. [employer] disclaims any warranty or liability for your use of this information. documented in this encounter* Attachments The following attachments cannot be sent through Care Everywhere. * Mabry (Lithuanian Argentine) documented in this encounter* Attachments The following attachments cannot be sent through Care Everywhere. * Supraventricular Tachycardia (Lithuanian Argentine) documented in this encounter* Attachments The following attachments cannot be sent through Care Everywhere. * Depression: Treatment (Lithuanian Argentine) documented in this encounter Assessments Diagnosis Mood [...] Complete - 24 Hour Karrie Willis PA [address] [place] [address] [facility] [address] [place] [address] Status Reason Specialty Diagnoses / Procedures Referred By Contact Referred To Contact Closed Heart and Vascul ar Diagnostics Diagnoses SVT (supraventricular tachycardia) (HCC) Procedures Echocardiogram complete (M-Mode/2D) Karrie Willis PA [address] [place] [address] Heart [facility] Diag [address] [place] [address] Status Reason Specialty Diagnoses / Procedures Referred By Contact Referred To Contact Closed Heart and Vascul ar Diagnostics Diagnoses Bradycardia with 41-50 beats per minute Procedures Cardiac Event Monitor - 30 Day Karrie Willis PA [address] [place] [address] Heart [facility] Diag [address] [place] [address] Specialty Diagnoses / Procedures Referred By Contac t Referred To Contact Orthopedic Surgery Diagnoses Plantar fasciitis of right foot Pes planus, unspecified laterality Peroneal tendonitis, right Jelenasincere, Thomas Jeffery, DO [address] [place] [address] Andre Duong, DPM [address] [place] [address] Referral ID Status Reason Start Date Expiration Date V isits Requested Visits Authorized [id number] Authorized 09/07/2021 09/07/2022 1 1 Specialty Diagnoses / Procedures Referred By Contac t Referred To Contact Ent - Otolaryngology Diagnoses Ear drainage, unspecified laterality Procedures CONSULT TO ENT OFFICE/OUTPATIENT [facility] 60-74 MINUTES Dae Mari APRN.[facility] [address] [place] [address] Referral ID Status Reason Start Date Expiration Date Visits Requested Visits Authorized [id number] Authorized PCP Requested Referral 02/16/2023 02/16/2024 1 1 Specialty Diagnoses / Procedures Referred By Contac t Referred To Contact Spine [place] Diagnoses H/O spinal fusion DDD (degenerative disc disease), lumbar Procedures CONSULT TO [facility] OFFICE/OUTPATIENT [facility] 60-74 MINUTES Peggy Nicole DO [address] [place] [address] Referral ID Status Reason Start Date Expiration Date Visits Requested Visits Authorized [id number] Authorized PCP Requested Referral 04/19/2023 04/18/2024 1 1 Specialty Diagnoses / Procedures Referred By Contac t Referred To Contact Podiatry Diagnoses Plantar fasciitis, bilateral Procedures CONSULT TO PODIATRY OFFICE/OUTPATIENT [facility] 60-74 MINUTES Peggy Nicole DO [address] [place] [address] Referral ID Status Reason Start Date Expiration Date Visits Requested Visits Authorized [id number] Authorized PCP Requested Referral 06/07/2023 06/06/2024 1 1 Specialty Diagnoses / Procedures Referred By Contac t Referred To Contact Spine [place] Diagnoses DDD (degenerative disc disease), lumbar Procedures CONSULT TO [facility] OFFICE/OUTPATIENT [facility] 60 MINUTES Peggy Nicole DO [address] [place] [address] Referral ID Status Reason Start Date Expiration Date Visits Requested Visits Authorized [id number] Authorized PCP Requested Referral 04/04/2024 04/04/2025 1 1 Hospital Course * Ananda Zhang MD - 08/29/2019 1:34 PM EST DISCHARGE SUMMARY Clinical Cardiac Electrophysiology [facility] Sloan Harvey [id number] 1970 49 y.o. Admit Date: 08/29/2019 Discharge [...] related to the procedure, please contact the [facility] EP clinic at [phone]. Plan: 1. Discharge to home. 2. Follow-up with Electrophysiology as scheduled, in about 1 month. Thank you for allowing me to participate in the care of Mr. Harvey. Please call with questions. Ananda Zhang M.D., MERGED WITH [facility] Clinical Cardiac Electrophysiology [facility] V[facility] [place] Office: [phone] 08/29/2019 1:34 PM documented in this encounter [...] DATE CREATED AUTHOR AUTHOR'S ORGANIZ ATION 03/15/[address] [facility] DATE CREATED AUTHOR AUTHOR'S ORGANIZ ATION 07/02/2018 [facility] [place] [facility] DATE CREATED AUTHOR AUTHOR'S ORGANIZ ATION 10/13/2021 [facility] DATE CREATED AUTHOR AUTHOR'S ORGANIZ ATION 10/15/2021 [facility] DATE CREATED AUTHOR AUTHOR'S ORGANIZ ATION [facility] DATE CREATED AUTHOR AUTHOR'S ORGANIZ ATION 08/11/2023 [facility] DATE CREATED AUTHOR AUTHOR'S ORGANIZ ATION 10/03/2023 [facility] DATE CREATED AUTHOR AUTHOR'S ORGANIZ ATION 10/25/2023 [facility] DATE CREATED AUTHOR AUTHOR'S ORGANIZ ATION 07/28/2024 [facility] DATE CREATED AUTHOR AUTHOR'S ORGANIZ ATION 05/03/2025 [facility] Reason for Visit (unrecogniz ed section and content) Reason Comments Psychiatric Evaluation Other Medical Clearance [facility]. Status Reason Specialty Diagnoses / Procedures Referred By Contact Referred To Contact Closed Heart and Vascul ar Diagnostics Diagnoses SVT (supraventricular tachycardia) (HCC) Procedures Holter Monitor Complete - 24 Hour Karrie Willis PA [address] [place] [address] Heart Vascular Diag [address] [place] [address] Reason Comments Outpatient Physical Therapy Status Reason Specialty Diagnoses / Procedures Referred By Contact Referred To Contact Authorized Physical Therapy Diagnoses Chronic low back pain, unspecified back pain laterality, unspecified whether sciatica present Karrie Willis PA [address] [place] [address] Negrita Zamora, PT, DPT Status Reason Specialty Diagnoses / Procedures Re ferred By Contact Referred To Contact Diagnoses SVT (supraventricular tachycardia) ([facility]) Procedures NH EPHYS EVAL W/ABLATION SUPRAVENT ARRHYTHMIA INTRACARD ECHOCARD W/THER/DX IVNTJ INCL IMG S&I NH INTRACARDIAC ELECTROPHYSIOLOGIC 3D MAPPING PROGRAMMED STIMJ&PACG AFTER IV DRUG NFS NH COMPRE ELECTROPHYSIOL XM W/LEFT ATRIAL PACNG/REC Ananda Zhang MD [address] [place] [address] Daniel Rosenbaum MD [address] [place] [address] Reason Comments Medication Refill Reason Comments Information or Advice only Reason Comments Burn Status Reason Specialty Diagnoses / Procedures Referred By Contact Referred To Contact Closed Heart and Vascul ar Diagnostics Diagnoses SVT (supraventricular tachycardia) ([facility]) Procedures Echocardiogram complete (M-Mode/2D) Karrie Willis PA [address] [place] [address] Heart V[facility] Diag [address] [place] [address] Status Reason Specialty Diagnoses / Procedures Referred By Contact Referred To Contact Closed Heart and Vascul ar Diagnostics Diagnoses Bradycardia with 41-50 beats per minute Procedures Cardiac Event Monitor - 30 Day Karrie Willis, ROSA [address] [place] [address] [facility] Diag [address] [facility] [place] [address] Reason Comments Irregular Heart Beat Reason Comments [...] Peroneal tendonitis, right Thomas Kay, DO [address] [place] [address] Andre Duong, DPM [address] [place] [address] Referral ID Status Reason Start Date Expiration Date Visits Re quested Visits Authorized [id number] Closed 09/07/2021 09/07/2022 1 1 Reason Comments Pain Fracture Toe Pain New problem left 5th MT fx Reason Comments Establish Care Reason Onset Date Comments Medication Refill 11/18/2021 Reason Comments New Patient Establish care. Bila teral ear wax ( would like to have flushed) Reason Comments Consult ENT #[id number] Reason Comments Referral Request Establish Care WHITNEY [...] abuse Procedures CONSULT TO CHEMICAL DEPENDENCY OFFICE/OUTPATIENT [facility] 60-74 MINUTES Mimi JUNIOR Pryor [address] [place] [address] Referral ID Status Reason Start Date Expiration Date Visits Requested Visits Authorized [id number] Pending Review PCP Requested Referral 07/21/2023 07/20/2024 [...] Mckeon RN - 12/22/2020 5:03 PM EDTBAde sehlton RN - 12/22/2020 4:10 PM EDT ED Notes (unrecognized secti on and content) This RN called and spoke with Andre at [facility], he states that they are ready for patient. [facility] states pt has been approved to go to [facility], pending negative covid, will fax over the paperwork Called [facility] they are working on pt admission This RN faxed ER summary, labs and psych ease [facility]. This RN called [facility] at [phone] and spoke to Janis. She reports once she receives the fax, she will call their Crisis Counselor security operations center operator and will call ER to complete Crisis assessment over the phone. This RN will inform nurse caring for pt. Erika Mckeon RN. Met with pt. In room. He is a/o x 3, depressed mood and affect. Pt reports he completed the intake with [facility] and reports they will have a bed [...] go there until he can get into [facility] for treatment. ED Diagnosis and Summary 1. Depression, unspecified depression type 2. History of alcohol abuse ED Summary Medical screening evaluation, including screening blood work and urine testing, is unremarkable. The patient is depressed but not suicidal. He wants to go to crisis and eventually to [facility] for rehab but I am told that [facility] will not have a bed for at least another day, maybe two. Will ask psych nurse to facilitate evaluation for the crisis center. History Chief Complaint Patient presents with Alcohol Problem 50M, history of ethanol abuse, had been clear for about 8 months but recently relapsed, presents with depression. He reports he wants to eventually go to [facility] where he has been before but in [...] Surgical History Laterality Date Comments Spine surgery [GKG309] 2005 lumbar cardiac ablation [Other] 08/29/2019 Dr Zhang Tooth Extraction [ETP534] Left 11/08/2019 Social History Tobacco History Smoking [...] speaking to a person in Intake at [facility]. Will come back to meet with pt. Shortly. Pt calling [facility] at this time to see if they [...] Provider Active Sta rt: February 17, 2025 Manager Desktop Relationship Specialty Start Date End Date No, Physician [facility] PCP - General 06/19/21 Manager Desktop Relationship Specialty Start Date End Date No, Physician [facility] PCP - General 06/19/21 Manager Desktop Relationship Specialty Start Date End Date Alda Maria MD [address] [place] [address] PCP - General Family Medicine 10/14/21 Manager Desktop Relationship Specialty Start Date End Date Alda Maria MD [address] [place] [address] PCP - General Family Medicine 10/14/21 Manager Desktop Relationship Specialty Start Date End Date Alda Maria MD [address] [place] [address] PCP - General Family Medicine 10/14/21 Manager Desktop Relationship Specialty Start Date End Date Alda Maria MD [address] [place] [address] PCP - General Family Medicine 10/14/21 Manager Desktop Relationship Specialty Start Date End Date Dae Mari, TIRSO.[facility] [address] [place] [address] PCP - General Family Medicine 02/16/23 Manager Desktop Relationship Specialty Start Date End Date Dae Mari, TIRSO.[employer] [address] [place] [address] PCP - General Family Medicine 02/16/23 Manager Desktop Relationship Specialty Start Date End Date Peggy Nicole DO [address] [place] [address] PCP - General Family Medicine 04/19/23 Manager Desktop Relationship Specialty Start Date End Date Peggy Nicole DO [address] [place] [address] PCP - General Family Medicine 04/19/23 Manager Desktop Relationship Specialty Start Date End Date Peggy Nicole DO [address] [place] [address] PCP - General Family Medicine 04/19/23 Manager Desktop Relationship Specialty Start Date End Date Peggy Nicole DO [address] [place] [address] PCP - General Family Medicine 04/19/23 Manager Desktop Relationship Specialty Start Date End Date Peggy Nicole DO [address] [place] [address] PCP - General Family Medicine 04/19/23 Manager Desktop Relationship Specialty Start Date End Date Peggy Nicole DO [address] [place] [address] PCP - General Family Medicine 04/19/23 Manager Desktop Relationship Specialty Start Date End Date Peggy Nicole DO [address] [place] [address] PCP - General Family Medicine 04/19/23 Manager Desktop Relationship Specialty Start Date End Date Peggy Nicole DO [address] [place] [address] PCP - General Family Medicine 04/19/23 Manager Desktop Relationship Specialty Start Date End Date Peggy Nicole DO [address] [place] [address] PCP - General Family Medicine 04/19/23 Manager Desktop Relationship Specialty Start Date End Date Peggy Nicole DO [address] [place] [address] PCP - General Family Medicine 04/19/23 Manager Desktop Relationship Specialty Start Date End Date Peggy Nicole DO [address] [place], [place] [address] PCP - General Family Medicine 04/19/23 Team Status: Active Member Role Status Dates No Primary Care Physician Primary Care Provider Active Team Status: Active Member Role Status Dates Dr. Sloan Gonzalez , DO Emergency Provider Active No Primary Care Physician Primary Care Provider Active Dr. Sloan Villalobos , DO Admit Provider, At tending Provider, [...] Anatoly Peck , DO Other Provider Active Manager Desktop Relationship Specialty Start Date End Date Peggy Nicole DO [address] [place] [address] PCP - General Family Medicine 04/19/23 Manager Desktop Relationship Specialty Start Date End Date Peggy Nicole DO [address] [place] [address] PCP - General [facility] Medicine 04/19/23 Manager Desktop Relationship Specialty Start Date End Date Peggy Nicole DO [address] [place] [address] PCP - General Family Medicine 04/19/23 Team [...] 20, 2025 End: April 23, 2025 Dr. Cristina Salas DO [...] Provider Active Start: April 21, 2025 Dr. Cristina Salas DO Attending Provider [...] or prosecute any alcohol or drug abuse patient.[facility]igh[facility] the event this information is protected by the Federal Confidentiality of Alcohol and Drug Abuse Patient Records regulations: The Federal rules restrict any use of the information to criminally investigate or prosecute any alcohol or drug abuse patient.[facility]igh[facility] the event this information is protected by the Federal Confidentiality of Alcohol and Drug Abuse Patient Records regulations: The Federal rules restrict any use of the information to criminally investigate or prosecute any alcohol or drug abuse patient.[facility]igh[facility] the event this information is protected by the Federal Confidentiality of Alcohol and Drug Abuse Patient Records regulations: The Federal rules restrict any use of the information to criminally investigate or prosecute any alcohol or drug abuse patient.[facility]ighIn the event this information is protected by the Federal Confidentiality of Alcohol and Drug Abuse Patient Records regulations: The Federal rules restrict any use of the information to criminally investigate or prosecute any alcohol or drug abuse patient.[facility]ighIn the event this information is protected by the Federal Confidentiality of Alcohol and Drug Abuse Patient Records regulations: The Federal rules restrict any use of the information to criminally investigate or prosecute any alcohol or drug abuse patient.[facility]ighIn the event this information is protected by the Federal Confidentiality of Alcohol and Drug Abuse Patient Records regulations: The Federal rules restrict any use of the information to criminally investigate or prosecute any alcohol or drug abuse patient.[facility]ighIn the event this information is protected by the Federal Confidentiality of Alcohol and Drug Abuse Patient Records regulations: The Federal rules restrict any use of the information to criminally investigate or prosecute any alcohol or drug abuse patient.[facility]ighIn the event this information is protected by the Federal Confidentiality of Alcohol and Drug Abuse Patient Records regulations: The Federal rules restrict any use of the information to criminally investigate or prosecute any alcohol or drug abuse patient.[facility]ighIn the event this information is protected by the Federal Confidentiality of Alcohol and Drug Abuse Patient Records regulations: The Federal rules restrict any use of the information to criminally investigate or prosecute any alcohol or drug abuse patient.[facility]ighIn the event this information is protected by the Federal Confidentiality of Alcohol and Drug Abuse Patient Records regulations: The Federal rules restrict any use of the information to criminally investigate or prosecute any alcohol or drug abuse patient.[facility]ighIn the event this information is protected by the Federal Confidentiality of Alcohol and Drug Abuse Patient Records regulations: The Federal rules restrict any use of the information to criminally investigate or prosecute any alcohol or drug abuse patient.[facility]ighIn the event this information is protected by the Federal Confidentiality of Alcohol and Drug Abuse Patient Records regulations: The Federal rules restrict any use of the information to criminally investigate or prosecute any alcohol or drug abuse patient.[facility]ighIn the event this information is protected by the Federal Confidentiality of Alcohol and Drug Abuse Patient Records regulations: The Federal rules restrict any use of the information to criminally investigate or prosecute any alcohol or drug abuse patient.[facility]ighIn the event this information is protected by the Federal Confidentiality of Alcohol and Drug Abuse Patient Records regulations: The Federal rules restrict any use of the information to criminally investigate or prosecute any alcohol or drug abuse patient.[facility]ighIn the event this information is protected by the Federal Confidentiality of Alcohol and Drug Abuse Patient Records regulations: The Federal rules restrict any use of the information to criminally investigate or prosecute any alcohol or drug abuse patient.[facility]ighIn the event this information is protected by the Federal Confidentiality of Alcohol and Drug Abuse Patient Records regulations: The Federal rules restrict any use of the information to criminally investigate or prosecute any alcohol or drug abuse patient.[facility]ighIn the event this information is protected by the Federal Confidentiality of Alcohol and Drug Abuse Patient Records regulations: The Federal rules restrict any use of the information to criminally investigate or prosecute any alcohol or drug abuse patient.[facility]ighIn the event this information is protected by the Federal Confidentiality of Alcohol and Drug Abuse Patient Records regulations: The Federal rules restrict any use of the information to criminally investigate or prosecute any alcohol or drug abuse patient.[facility]ighIn the event this information is protected by the Federal Confidentiality of Alcohol and Drug Abuse Patient Records regulations: The Federal rules restrict any use of the information to criminally investigate or prosecute any alcohol or drug abuse patient.[facility]ighIn the event this information is protected by the Federal Confidentiality of Alcohol and Drug Abuse Patient Records regulations: The Federal rules restrict any use of the information to criminally investigate or prosecute any alcohol or drug abuse patient.[facility]ighIn the event this information is protected by the Federal Confidentiality of Alcohol and Drug Abuse Patient Records regulations: The Federal rules restrict any use of the information to criminally investigate or prosecute any alcohol or drug abuse patient.[facility]ighIn the event this information is protected by the Federal Confidentiality of Alcohol and Drug Abuse Patient Records regulations: The Federal rules restrict any use of the information to criminally investigate or prosecute any alcohol or drug abuse patient.[facility]ighIn the event this information is protected by the Federal Confidentiality of Alcohol and Drug Abuse Patient Records regulations: The Federal rules restrict any use of the information to criminally investigate or prosecute any alcohol or drug abuse patient.[facility]ighIn the event this information is protected by the Federal Confidentiality of Alcohol and Drug Abuse Patient Records regulations: The Federal rules restrict any use of the information to criminally investigate or prosecute any alcohol or drug abuse patient.[facility] Goals (unrecognized section and content) Goals may [...] BE BASED ON THE PRIMARY CLINICAL RECORDS. [facility] [employer] [facility]. provides no warranty or guarantee of the accuracy or completeness of information in this document.
[2025-05-05] MEDS: hydrOXYzine PAM 25 MG Capsule 50 MG PO (21:50)
[2025-05-06] VITALS (7 sets, daily range): BP systolic 133–169; BP diastolic 72–93; PULSE 62–73; RESP 16–18; TEMP 36.4–37.1; O2SAT 95–98
[2025-05-06 05:47] LABS: Hematocrit 40.9 % (40-54); Hemoglobin 13.9 g/dL (13.0-16.5); Immature Granulocytes Count 0.030 X10^3/uL (0.0-0.0); Mean Corp Hgb Conc 34.0 g/dL (32-36); Mean Corpuscular Volume 91.7 fL (80-94); Mean Platelet Vol. 9.1 fl (6.2-12.0); NRBC Flagged by Analyzer 0 % (0-5); Platelet Count 210 K/mm3 (150-450); RBC Distribution Width CV 13.2 % (11.6-14.6); RBC Distribution Width SD 43.9 fl (35.1-43.9); Red Blood Count 4.46 M/mm3 (4.6-6.2); White Blood Count 7.8 K/mm3 (4.4-11.0)
[2025-05-06 06:00] LABS: Anion Gap 10 (5-15); BUN 8 mg/dL (4-19); BUN/Creat Ratio 8.1 RATIO (10-20); Calcium,Total 9.0 mg/dL (7.6-11.0); Carbon Dioxide 29.2 mmol/L (21.0-32.0); Chloride 101 mmol/L (98-108); Estimated Creatinine Clearance 108.60 ml/min (50-250); Glucose 96 mg/dL (70-99); Potassium 4.4 mmol/L (3.3-5.1)
[2025-05-06] MEDS: hydrOXYzine PAM 25 MG Capsule 50 MG PO ×2 (06:25→21:43)
[2025-05-06] MEDS: Thiamine Hydrochloride 100 MG Tablet PO (08:55)
[2025-05-06] MEDS: Ensure Plus High Protein 120 ML LIQUID PO ×3 (09:01→16:45)
--- NOTE | 2025-05-06 09:57 | CASEMGMT ---
Social Work Pt completed SDOH w/SW. Pt has a car, he [employer] during the day, and and if he earns enough money he will stay in a hotel. If not he stays in his car. He does have a friend that has told pt if he gets sober and stays sober he can stay w/this person while he works on finding housing. Pt plans to work with [employer] to find housing, though states it is difficult to do without an address. Pt states he has been trying to get sober since 2019, states he has been sober more than he hasn't been. Pt has been through the [employer] program and all of their housing programs. Pt states he also sees the physician at [facility] for medication for anxiety and depression. SW did provide resources to pt for [employer], [employer], and [employer] with information for food resources. Pt will follow up w/Saw w/[employer] today, SW remains available for any additional resources. ISABELA Singleton
--- NOTE | 2025-05-06 10:31 | ADDICTION ---
Met w/pt to complete RAMP assessments. Pt reports he can stay with a friend as long as he can maintain sobriety. Pt is established with [facility] psychiatry. He is not eligible for Viv[facility] due to his repeated admissions closely together.
--- NOTE | 2025-05-06 11:20 | ADDICTION ---
This scientific technical writer met with PT to conduct ASAM, MSE, AUDIT, DUDIT assessments and to plan for d/c. PT A+Ox4 and participated actively. All assessments completed. [facility]
--- NOTE | 2025-05-06 18:01 | PN.HOSP_ITS ---
Reason for Visit Chief Complaint: ETOH detox Subjective Subjective Patient was seen and examined today, he was admitted yesterday for alcohol use disorder. Patient is not sure at this time of follow-up plans after discharge from the hospital. Objective Data Objective Data Vital Signs: Vital Signs Temp Pulse Resp BP Pulse Ox O2 Del Method O2 Flow Rate 98.4 F 67 16 133/88 H 97 Room Air 2 05/06/25 16:04 05/06/25 16:04 05/06/25 16:04 05/06/25 16:04 05/06/25 16:04 05/06/25 16:04 05/05/25 20:00 Oxygen Flow Rate (L/min) 2 Oxygen Delivery Method Room Air Weight: 111.584 kg Body Mass Index (BMI) 35.3 Intake & Output: Intake and Output for Last 24 Hours 05/04/25 05/05/25 05/06/25 23:59 23:59 23:59 Intake Total 1100 / 1100 Balance 1100 / 1100 Lab / Micro Data 05/06/25 04:53 05/06/25 04:53 Labs: Laboratory Results - last 24 hr 05/05/25 17:15: Sodium 142, Potassium 3.3, Chloride 101, Carbon Dioxide 22.6, A nion Gap 19 H, BUN 7, Creatinine 0.86, Estim Creat Clear Calc 119.49, Est GFR (MDRD) Non-Af 102, BUN/Creatinine Ratio 8.0 L, Glucose 201 H, Calcium 9.4, Total Bilirubin 0.53, AST 116 H, ALT 79 H, Alkaline Phosphatase 114, Total Protein 7.5, Albumin 4.1, Globulin 3.4, Albumin/Globulin Ratio 1.2, Lipase 23, Ethyl Alcohol 110.0 H 05/05/25 18:32: Urine Opiates Screen NEGATIVE, U Buprenorphine Qual NEGATIVE, Ur Oxycodone Screen NEGATIVE, Urine Methadone Screen NEGATIVE, Urine Fentanyl Screen NEGATIVE, Ur Barbiturates Screen PRESUMPTIVE POSITIVE, Ur Phencyclidine Scrn NEGATIVE, Ur Amphetamines Screen NEGATIVE, U Benzodiazepines Scrn NEGATIVE, Urine Cocaine Screen NEGATIVE, U Cannabinoids Screen PRESUMPTIVE POSITIVE 05/05/25 19:15: D-Dimer Quant (PE/DVT) 0.30 05/06/25 04:53: WBC 7.8, RBC 4.46 L, Hgb 13.9, Hct 40.9, MCV 91.7, MCH 31.2, MCHC 34.0, RDW Std Deviation 43.9, RDW Coeff of Jacy 13.2, Plt Count 210, MPV 9.1, Immature Gran % (Auto) 0.400, Neut % (Auto) 55.5, Lymph % (Auto) 23.1, Nolan % (Auto) 7.5, Eos % (Auto) 12.3 H, Baso % (Auto) 1.2 H, Absolute Neuts (auto) 4.3, Absolute Lymphs (auto) 1.81, Nucleated RBC % 0, Sodium 141, Potassium 4.4, Chloride 101, Carbon Dioxide 29.2, Anion Gap 10, BUN 8, Creatinine 0.95, Estim Creat Clear Calc 108.60, Est GFR (MDRD) Non-Af 94, BUN/Creatinine Ratio 8.1 L, Glucose 96, Calcium 9.0 Micro: Microbiology 05/05/25 20:37 Mucosa - Nose Respiratory Panel (PCR) - Final 05/05/25 20:37 Mucosa - Nose SARS-CoV-2, Influenza & RSV (PCR) - Final Radiography Diagnostic Testing: Radiology Impression Chest X-Ray 05/05/25 18:38 IMPRESSION: No acute pulmonary disease. Reading Location: [facility] Physical Exam Const alert, oriented x3 and no apparent distress General Appearance: cooperative, well kempt and well developed Orientation / Consciousness: awake, oriented to person, oriented to place and oriented to time HEENT normocephalic, head/scalp atraumatic and moist oral mucous membranes Eyes PERRL, EOMs intact bilaterally and conjunctivae normal Neck supple, no JVD, thyroid normal and no carotid bruits General: trachea midline Resp normal respiratory effort, no retractions, no use of accessory muscles and clear to auscultation bilaterally Auscultation: Negative for rales, rhonchi or wheezes Cardio regular rate, regular rhythm, S1 normal heart sound, S2 normal heart sound, no murmurs, no rub and no gallops GI normal to inspection, nondistended, normoactive bowel sounds, soft to palpation, non-tender and non-distended Extremity no clubbing, cyanosis or edema Skin no rashes or lesions noted General Skin Exam: no breakdown Neuro oriented x3, CN's II-XII intact bilaterally, moves all extremities, no focal motor deficits and no sensory deficits noted Sensorium / Orientation: awake and alert Speech: speech normal Psych affect normal Assessment & Plan Assessment/Plan (1) Alcohol withdrawal: PLAN: Plan 1. Alcohol withdrawal-patient will be monitored for alcohol withdrawal symptoms, he is on a phenobarbital taper #2 Central hypertension-patient is on amlodipine #3 chronic depression-patient is on Cymbalta #4 sinusitis-patient was placed on Augmentin on admission to the hospital, according to the patient he has been ill for approximately 2 to 3 weeks with sinus drainage. Total clinical time spent by myself addressing the patient's medical issues, reviewing all of his data, and collaborating with patient's care team: 35 minutes Charges/Coding Visit Charges Inpatient E&M: 47013 Subs Hosp L2
[2025-05-07] VITALS (8 sets, daily range): BP systolic 117–173; BP diastolic 76–98; PULSE 58–74; RESP 14–18; TEMP 36.4–37.1; O2SAT 95–98
[2025-05-07] MEDS: Thiamine Hydrochloride 100 MG Tablet PO (08:24)
--- NOTE | 2025-05-07 09:47 | NURSING ---
declines any prn medication for anxiety/symptom
--- NOTE | 2025-05-07 13:33 | NURSING ---
declines prn anxiety med
[2025-05-07] MEDS: hydrOXYzine PAM 25 MG Capsule 50 MG PO (17:35)
--- NOTE | 2025-05-07 18:56 | PCM.PN.HOSP ---
Reason for Visit Chief Complaint: ETOH detox Subjective Subjective Patient was seen and examined today, he is decided to do an outpatient detox program, patient had some questions about a skin lesion on his right fifth toe, I examined the area and it appears to be a plantars wart. Objective Data Objective Data Vital Signs: Vital Signs Temp Pulse Resp BP Pulse Ox O2 Del Method O2 Flow Rate 97.6 F L 74 18 173/98 H 96 Room Air 2 05/07/25 17:34 05/07/25 17:34 05/07/25 17:34 05/07/25 17:34 05/07/25 17:34 05/07/25 17:34 05/05/25 20:00 Oxygen Flow Rate (L/min) 2 Oxygen Delivery Method Room Air Weight: 111.584 kg Body Mass Index (BMI) 35.3 Intake & Output: Intake and Output for Last 24 Hours 05/05/25 05/06/25 05/07/25 23:59 23:59 23:59 Intake Total 1100 / 1100 Balance 1100 / 1100 Lab / Micro Data 05/06/25 04:53 05/06/25 04:53 Micro: Microbiology 05/05/25 20:37 Mucosa - Nose Respiratory Panel (PCR) - Final 05/05/25 20:37 Mucosa - Nose SARS-CoV-2, Influenza & RSV (PCR) - Final Physical Exam Narrative alert, oriented x3 and no apparent distress General Appearance: cooperative, well kempt and well developed Orientation / Consciousness: awake, oriented to person, oriented to place and oriented to time HEENT normocephalic, head/scalp atraumatic and moist oral mucous membranes Eyes PERRL, EOMs intact bilaterally and conjunctivae normal Neck supple, no JVD, thyroid normal and no carotid bruits General: trachea midline Resp normal respiratory effort, no retractions, no use of accessory muscles and clear to auscultation bilaterally Auscultation: Negative for rales, rhonchi or wheezes Cardio regular rate, regular rhythm, S1 normal heart sound, S2 normal heart sound, no murmurs, no rub and no gallops GI normal to inspection, nondistended, normoactive bowel sounds, soft to palpation, non-tender and non-distended Extremity no clubbing, cyanosis or edema Skin no rashes or lesions noted General Skin Exam: no breakdown Neuro oriented x3, CN's II-XII intact bilaterally, moves all extremities, no focal motor deficits and no sensory deficits noted Sensorium / Orientation: awake and alert Speech: speech normal Psych affect normal Assessment & Plan Assessment/Plan (1) Alcohol withdrawal: PLAN: Plan 1. Alcohol withdrawal-patient will be monitored for alcohol withdrawal symptoms, he is on a phenobarbital taper #2 Central hypertension-patient is on amlodipine #3 chronic depression-patient is on Cymbalta #4 sinusitis-patient was placed on Augmentin on admission to the hospital, according to the patient he has been ill for approximately 2 to 3 weeks with sinus drainage. Total clinical time spent by myself addressing the patient's medical issues, reviewing all of his data, and collaborating with patient's care team: 35 minutes Charges/Coding Visit Charges Inpatient E&M: 40475 Subs Hosp L2
[2025-05-08 01:40] VITALS: BP 148/74; PULSE 64; RESP 16; TEMP 37.1; O2SAT 94
[2025-05-08 05:54] VITALS: BP 134/79; PULSE 62; RESP 18; TEMP 37.1; O2SAT 95
[2025-05-08 07:47] VITALS: O2SAT 96
[2025-05-08] MEDS: Thiamine Hydrochloride 100 MG Tablet PO (08:03)
[2025-05-08 08:59] VITALS: BP 148/99; PULSE 59; RESP 16; TEMP 37; O2SAT 97
--- NOTE | 2025-05-08 13:35 | CASEMGMT ---
Social Work SW received phone call from Pt's [facility] [employer] Caroline Gomez ([phone]). DC info provided. Caroline's contact information added to pt's discharge papers per her request. NAOMY Greene
--- NOTE | 2025-05-08 13:42 | DCINST_ITS ---
Discharge Instructions DC O2, CPAP, BIPAP needs Home O2 Discharge instructions: No Dressing / Incision Discharge Activity: Return to Normal Activity Weight Bearing Status: Full weight bearing Follow Up Care Test Results: Test results from this visit will be discussed in further detail at your follow- up appointment, if applicable. Discharge Plan Admission Admit Date/Time: 05/05/25 20:03 Primary Reason for Your Visit: Alcohol detox Attending Provider: Anatoly Peck Primary Care Provider: Juanis Vazquez Consulting Providers: Shannen Roman Instructions Additional Instructions / Restrictions: Follow-up with outpatient detox program Discharge Orders/Prescriptions Prescriptions: New buspirone 5 mg Tablet 10 mg PO TID Qty: 60 0RF amlodipine 5 mg Tablet 5 mg PO DAILY Qty: 30 0RF ibuprofen 600 mg Tablet 600 mg PO Q6H PRN PRN (Reason: Pain Score 1-10) Qty: 60 0RF amoxicillin-pot clavulanate 875-125 mg Tablet 1 tab PO BIDCM Qty: 14 0RF Rx Instructions: Take with food hydroxyzine pamoate 25 mg Capsule 50 mg PO Q4H PRN PRN (Reason: mild anxiety) Qty: 40 0RF duloxetine 60 mg Capsule,Delayed Release(Dr/Ec) 120 mg PO DAILY Qty: 60 0RF Discontinued amlodipine 5 mg tablet 5 mg PO DAILY duloxetine 60 mg capsule,delayed release(DR/EC) 60 mg PO DAILY buspirone 10 mg tablet 10 mg PO TID duloxetine 30 mg capsule,delayed release(DR/EC) 30 mg PO QHS No Action ibuprofen 600 mg tablet 600 mg PO TID PRN (Reason: pain) Patient Comments: PT ONLY TAKES 1-2 TIMES A DAY hydroxyzine pamoate 25 mg capsule 50 mg PO TID PRN (Reason: anxiety) Referrals / Follow Up: Juanis Vazquez DO [Primary Care Provider] - Within 1 Month Disposition Disposition (needs filled in before D/C Order can be placed): Home, Self Care
--- NOTE | 2025-05-08 13:51 | PCM.DC.SUM ---
Providers Date of Admission: 05/05/25 Date of Discharge: 05/08/25 Primary Care Physician: Dr. Juanis Vazquez DO Reason For Visit: ALCOHOL DETOX, HYPOXIA Diagnosis Discharge Diagnosis (1) Alcohol withdrawal: Status: Acute Code(s): F10.939 - Alcohol use, unspecified with withdrawal, unspecified Plan 1. Alcohol withdrawal-patient will be monitored for alcohol withdrawal symptoms, he is on a phenobarbital taper #2 Central hypertension-patient is on amlodipine #3 chronic depression-patient is on Cymbalta #4 sinusitis-patient was placed on Augmentin on admission to the hospital, according to the patient he has been ill for approximately 2 to 3 weeks with sinus drainage. Total clinical time spent by myself addressing the patient's medical issues, reviewing all of his data, and collaborating with patient's care team: 35 minutes Medications at Discharge Home Medications hydroxyzine pamoate 25 mg capsule 50 mg PO TID PRN anxiety 12/17/23 ibuprofen 600 mg tablet 600 mg PO TID PRN pain 12/17/23 amlodipine 5 mg tablet 5 mg PO DAILY #30 tabs 05/08/25 amoxicillin 875 mg-potassium clavulanate 125 mg tablet 1 tab PO BIDCM #14 tabs 05/08/25 buspirone 5 mg tablet 10 mg (2 x 5 mg) PO TID #60 tabs 05/08/25 duloxetine 60 mg capsule,delayed release 120 mg (2 x 60 mg) PO DAILY #60 caps 05/08/25 hydroxyzine pamoate 25 mg capsule 50 mg (2 x 25 mg) PO Q4H PRN PRN mild anxiety #40 caps 05/08/25 ibuprofen 600 mg tablet 600 mg PO Q6H PRN PRN Pain Score 1-10 #60 tabs 05/08/25 Hospital Course Operations None Procedures None Summary of Care Provided Minutes Spent on Discharge: 30 Hospital Course: This 55-year-old white male was seen in the emergency room at [facility] desiring services for alcohol detox. He was admitted to [place] [address] and orders were entered using the alcohol detox order set, patient was placed on Augmentin on admission due to complaints of chronic sinusitis. Patient had no serious withdrawal symptoms during his hospitalization, he was seen by addiction social services specialist and he desired to follow-up as an outpatient and a detox program. On 05/08/2025, patient was seen and examined: On examination he appeared in good health and spirits. Vital signs as documented. Skin warm and dry and without overt rashes. Neck without JVD, neck was supple, trachea midline, thyroid was normal. Lungs clear bilaterally, normal air movement was noted. Heart exam notable for regular rhythm, normal sounds and absence of murmurs, rubs or gallops. Abdomen unremarkable and without evidence of organomegaly, masses, or abdominal aortic enlargement. Bowel sounds are present, abdomen is not distended. Extremities nonedematous, no cyanosis was noted, no clubbing was noted. Neuro: Cranial nerves II through XII are grossly intact, no focal motor deficits were noted, sensation to light touch and pinprick intact, motor exam 5/5 throughout. Psych: Patient is alert and oriented x3, he does not appear anxious or depressed, he does not appear agitated. Patient appears stable for discharge home on 05/08/2025. Weight / BMI Weight Weight: 111.584 kg Body Mass Index (BMI) 35.3 ABG / Lab / Microbiology Data 05/06/25 04:53 05/06/25 04:53 Microbiology: Microbiology 05/05/25 20:37 Mucosa - Nose Respiratory Panel (PCR) - Final 05/05/25 20:37 Mucosa - Nose SARS-CoV-2, Influenza & RSV (PCR) - Final D/C Instructions Weight Bearing Status: Full weight bearing DC O2, CPAP, BIPAP Needs Home O2 Discharge instructions: No Meaningful Use Info Meaningful Use Meaningful Use Diagnoses (Choose all that apply): None applicable Discharge Plan Admission Admit Date/Time: 05/05/25 20:03 Primary Reason for Your Visit: Alcohol detox Attending Provider: Anatoly Peck Primary Care Provider: Juanis Vazquez Consulting Providers: Shannen Roman Instructions Additional Instructions / Restrictions: Follow-up with outpatient detox program Discharge Orders/Prescriptions Prescriptions: New buspirone 5 mg Tablet 10 mg PO TID Qty: 60 0RF amlodipine 5 mg Tablet 5 mg PO DAILY Qty: 30 0RF ibuprofen 600 mg Tablet 600 mg PO Q6H PRN PRN (Reason: Pain Score 1-10) Qty: 60 0RF amoxicillin-pot clavulanate 875-125 mg Tablet 1 tab PO BIDCM Qty: 14 0RF Rx Instructions: Take with food hydroxyzine pamoate 25 mg Capsule 50 mg PO Q4H PRN PRN (Reason: mild anxiety) Qty: 40 0RF duloxetine 60 mg Capsule,Delayed Release(Dr/Ec) 120 mg PO DAILY Qty: 60 0RF Discontinued amlodipine 5 mg tablet 5 mg PO DAILY duloxetine 60 mg capsule,delayed release(DR/EC) 60 mg PO DAILY buspirone 10 mg tablet 10 mg PO TID duloxetine 30 mg capsule,delayed release(DR/EC) 30 mg PO QHS No Action ibuprofen 600 mg tablet 600 mg PO TID PRN (Reason: pain) Patient Comments: PT ONLY TAKES 1-2 TIMES A DAY hydroxyzine pamoate 25 mg capsule 50 mg PO TID PRN (Reason: anxiety) Referrals / Follow Up: Juanis Vazquez DO [Primary Care Provider] - Within 1 Month Disposition Disposition (needs filled in before D/C Order can be placed): Home, Self Care Charges/Coding Visit Charges Inpatient E&M: 82888 Disch Hosp
[2025-05-08 14:26] VITALS: BP 135/80; PULSE 62; RESP 18; TEMP 36.8; O2SAT 96
== END 2025-05-08 17:41 | disposition home or self-care (01) | DRG 775 ==
LOC: ED 19:53 → MS3 20:04
PROVIDERS: Admitting Provider Internal Medicine; Emergency Provider Emergency Medicine; PCP Family Medicine; Visit Provider Internal Medicine
DX: F10.139 Alcohol abuse with withdrawal, unspecified (principal); Z59.02 Unsheltered homelessness; F32.A Depression, unspecified; I10 Essential (primary) hypertension; F17.210 Nicotine dependence, cigarettes, uncomplicated; J32.9 Chronic sinusitis, unspecified; F41.9 Anxiety disorder, unspecified; R09.02 Hypoxemia; Y90.5 Blood alcohol level of 100-119 mg/100 ml; Z79.899 Other long term (current) drug therapy
CPT/HCPCS: 36415; 71046; 80048; 80053; 80307; 82077; 83690; 85025; 85379; 87631; 87633; 94640; 94668; 97802; 99284; A4216

== ENCOUNTER 2025-08-14 08:22 | Inpatient (IN) | payer MEDICAID, SELFPAY ==
[2025-08-14] VITALS (9 sets, daily range): BP systolic 119–149; BP diastolic 76–131; PULSE 63–114; RESP 14–20; TEMP 36.4–37.2; O2SAT 95–98; BMI 30.9
--- NOTE | 2025-08-14 08:51 | EKG12_ITS ---
Test Reason : detox Blood Pressure : */* mmHG Vent. Rate : 83 BPM Atrial Rate : 83 BPM P-R Int : 146 ms QRS Dur : 86 ms QT Int : 394 ms P-R-T Axes : 25 12 12 degrees QTcB Int : 462 ms Normal sinus rhythm Normal ECG Confirmed by NATE COLINDRES ([id number]), business editor HESHAM SAUCEDO ([id number]) on 08/19/2025 6:33:04 AM Referred By: Confirmed By: NATE COLINDRES
--- NOTE | 2025-08-14 09:04 | PCA ---
THIS US MADE A COPY OF THE SIGNED RAMP FORM AND SENT TO THE FLOOR
--- NOTE | 2025-08-14 09:04 | EX.ED.DYSGE1 ---
HPI History of Present Illness Chief Complaint: Mental Health Informant: patient Narrative Narrative: 55-year-old male presenting to the emergency room requesting detox from alcohol. Patient states that he had come to the hospital for detox in February. He states for the past 3 months he has been drinking about a handle of vodka per day. Patient states for about a week now he cannot keep any food or water in. He states he stopped taking all of his medications tried to restart them about a week ago but has been taking them sporadically. Notes nausea vomiting. He denies any diarrhea or really any bowel movements. He denies any fevers. He states that he is concerned that last night he may have had some blood in his vomit. He states he feels very shaky. He feels depressed but does not have any suicidal ideation. [facility] Medical History Hypoxia Alcohol withdrawal Depression with anxiety Obesity (BMI 30-39.9) Tobacco abuse Polysubstance abuse Anxiety Depression Hypertension Home Medications ?Medication ?Instructions ?Recorded ?Last Taken ?Type hydroxyzine pamoate 25 mg capsule 25 mg PO TID PRN anxiety 12/17/23 08/07/25 History ibuprofen 600 mg tablet 600 mg PO TID PRN pain 12/17/23 08/07/25 History amlodipine 5 mg tablet 5 mg PO DAILY #30 tabs 05/08/25 08/07/25 Rx buspirone 10 mg tablet 10 mg PO BID 08/14/25 08/07/25 History duloxetine 30 mg capsule,delayed 30 mg PO QHS 08/14/25 08/07/25 History release duloxetine 60 mg capsule,delayed 60 mg PO DAILY 08/14/25 08/07/25 History release Allergy/AdvReac Type Severity Reaction Status Date / Time No Known Allergies Allergy Verified 08/14/25 08:23 Family History Other Alcoholism Social History Smoking Status: Current every day smoker tobacco type: cigarettes Smokeless tobacco user: other substance use type: marijuana and amphetamines ROS ROS ED Constitutional Constitutional ED: Reports sweats; Denies chills, fever(s) or weight loss Eyes Eyes: Denies change in vision or diplopia ENT ENT ED: Reports other Details: Dry mouth ; Denies ear pain, rhinorrhea or sore throat Cardiovascular Cardiovascular: Denies chest pain, orthopnea, palpitations or racing heartbeat Respiratory/Chest Respiratory/Chest: Denies cough, dyspnea or orthopnea Gastrointestinal Gastrointestinal: Reports constipation, nausea and vomiting; Denies abdominal pain or diarrhea Genitourinary Genitourinary ED: Denies dysuria, hematuria or urinary frequency Musculoskeletal Musculoskeletal: Denies arthralgias or myalgias Integumentary Denies abscess or rash Neurologic Neurologic: Denies headache(s), paresthesias or weakness Psychiatric Psychiatric: Reports anxiety and depression; Denies suicidal ideation or suicidal thoughts Endocrine Endocrinology: Denies polydipsia, polyphagia or polyuria Allergic/Immunologic Allergic/Immunologic ED: Denies mouth swelling, tongue swelling or urticaria EXAM Physical Exam Const Vital Signs: 08/14/25 08:23 08/14/25 09:22 08/14/25 10:05 Temperature 97.6 F L 98.9 F Temperature Source Temporal Oral Pulse Rate 114 H 89 80 Respiratory Rate 16 20 H 17 Blood Pressure 148/131 H 137/99 H 137/102 H Blood Pressure Mean 136 111 113 Blood Pressure Source Monitor Blood Pressure Position Semi-Fowlers Blood Pressure Location Right Arm Pulse Ox 97 98 97 Oxygen Delivery Method Room Air Room Air Room Air 08/14/25 10:56 Temperature Temperature Source Pulse Rate 82 Respiratory Rate 20 H Blood Pressure 130/106 H Blood Pressure Mean 114 Blood Pressure Source Blood Pressure Position Blood Pressure Location Pulse Ox 97 Oxygen Delivery Method Room Air Positive well nourished and well developed General Appearance ED: well developed and NAD HEENT Reports normocephalic, head/scalp atraumatic and dry mucous membranes Mouth ED: Yes dry mucous membranes Mouth: dry mucous membranes Eyes PERRL and EOMs intact bilaterally Neck no lymphadenopathy, supple and no JVD Resp normal respiratory effort and clear to auscultation bilaterally Cardio regular rate, regular rhythm and no murmurs GI normal to inspection, nondistended, normoactive bowel sounds and non-tender Palpation: soft Back/Spine no CVA tenderness and normal ROM Extremity normal to inspection General Extremety ED: Negative for edema General Extremity: Negative for edema Neuro oriented x3 and CN's II-XII intact bilaterally Neuro Narrative: Patient has a tremor when he reaches to shake my hands and when he tries to hold them up bilaterally Sensorium / Orientation: alert Motor Exam: strength 5/5 throughout Psych mental status grossly normal Mood & Affect: depressed, anxious and tearful Skin no rashes or lesions noted and no wounds MDM MDM MDM Narrative Medical decision making narrative: Differential diagnosis includes alcohol use disorder/addiction cirrhosis dehydration acute kidney injury electrolyte abnormalities anemia upper GI bleed alcoholic gastritis alcoholic ketosis Blood work was obtained and reviewed. Hemoglobin 14.8 platelet count of 196. She he does have elevation of liver enzymes total bilirubin 2.16 direct bilirubin at 1.22 AST 292 ALT 144 normal alkaline phosphatase at 92. Lipase mildly elevated at 88. Potassium noted low at 3. Anion gap is elevated at 27 with a BUN of 11. He is positive on on ketones at 3 which most likely represents degree of alcoholic ketosis. Patient received thiamine folate IV fluids. He has been unable to produce a urine specimen yet. His alcohol level is at 40.5. He also received a dose of Ativan. Spoke with the hospitalist and the patient will be admitted. Patient also received Zofran as well as potassium supplementation. History & Record Review Discussion w/independent historian: Patient Additional record(s) reviewed:: Prior inpatient record, Prior ED visit and Prior labs Lab Data Attestation: I reviewed the patient's lab results. Labs: Laboratory Results - last 24 hr 08/14/25 08:35 WBC 5.7 RBC 4.67 Hgb 14.8 Hct 41.0 MCV 87.8 MCH 31.7 MCHC 36.1 H RDW Std Deviation 39.7 RDW Coeff of Jacy 12.3 Plt Count 196 MPV 9.8 Immature Gran % (Auto) 0.400 Neut % (Auto) 61.2 Lymph % (Auto) 27.3 [place] % (Auto) 8.1 Eos % (Auto) 1.8 Baso % (Auto) 1.2 H Absolute Neuts (auto) 3.5 Absolute Lymphs (auto) 1.56 Nucleated RBC % 0 PT 14.5 INR 1.1 APTT 27.3 Sodium 137 Potassium 3.0 L Chloride 90 L Carbon Dioxide 20.2 L Anion Gap 27 H BUN 11 Creatinine 0.94 Est GFR (MDRD) Non-Af 95 BUN/Creatinine Ratio 12.1 Glucose 92 Calcium 9.6 Magnesium 2.0 Total Bilirubin 2.16 H Direct Bilirubin 1.22 H AST 292 H ALT 144 H Alkaline Phosphatase 92 Total Protein 8.3 Albumin 4.8 Globulin 3.6 Lipase 88 H b-Hydroxybutyric mmol/L 3.0 H Ethyl Alcohol 40.5 H EKG Initial EKG: Attestation: I personally reviewed and interpreted this EKG as follows: Comments: Normal sinus rhythm ventricular rate of 83 bpm Management Discussion w/another healthcare provider: Hospitalist (Dr. Monroe) Discharge Plan Triage Chief Complaint: Mental Health Other Complaint: Substance Abuse ED Provider: Pascual Salinas Dx/Rx/DC Orders Prescriptions: No Action ibuprofen 600 mg tablet 600 mg PO TID PRN (Reason: pain) Patient Comments: PT ONLY TAKES 1-2 TIMES A DAY hydroxyzine pamoate 25 mg capsule 25 mg PO TID PRN (Reason: anxiety) amlodipine 5 mg Tablet 5 mg PO DAILY Qty: 30 0RF buspirone 10 mg tablet 10 mg PO BID duloxetine 30 mg capsule,delayed release(DR/EC) 30 mg PO QHS duloxetine 60 mg Capsule,Delayed Release(Dr/Ec) 60 mg PO DAILY Primary Care Provider: Juanis Vazquez Referrals: Juanis Vazquez DO [Primary Care Provider, Family Practice] Print Language: Belarusian
[2025-08-14 09:18] LABS: Hematocrit 41.0 % (40-54); Hemoglobin 14.8 g/dL (13.0-16.5); Immature Granulocytes Count 0.020 X10^3/uL (0.0-0.0); Mean Corp Hgb Conc 36.1 g/dL (32-36); Mean Corpuscular Volume 87.8 fL (80-94); Mean Platelet Vol. 9.8 fl (6.2-12.0); NRBC Flagged by Analyzer 0 % (0-5); Platelet Count 196 K/mm3 (150-450); RBC Distribution Width CV 12.3 % (11.6-14.6); RBC Distribution Width SD 39.7 fl (35.1-43.9); Red Blood Count 4.67 M/mm3 (4.6-6.2); White Blood Count 5.7 K/mm3 (4.4-11.0)
[2025-08-14] MEDS: Thiamine Hydrochloride 100 MG in 0.9% Normal Saline (50mL Bag) 50 ML 200 MG IV (09:29)
[2025-08-14] MEDS: Folic Acid 1 MG in 0.9% Normal Saline (50mL Bag) 50 ML 200 MG IV (09:29)
[2025-08-14 09:32] LABS: Prothrombin Time (Protime)PT. 14.5 SECONDS (11.7-14.9)
[2025-08-14 09:33] LABS: Partial Thromboplast Time 27.3 Seconds (24.1-36.2)
[2025-08-14 09:40] LABS: AST(SGOT) 292 U/L (<=37); Alanine Aminotransfer ALT/SGPT 144 U/L (<=46); Albumin, Serum 4.8 g/dL (3.5-5.0); Alcohol, Blood (Medical)-Serum 40.5 mg/dL (<=10.0); Alkaline Phosphatase 92 U/L (40-129); Anion Gap 27 (5-15); BUN 11 mg/dL (4-19); BUN/Creat Ratio 12.1 RATIO (10-20); Bilirubin, Direct 1.22 mg/dL (0.00-0.30); Calcium,Total 9.6 mg/dL (7.6-11.0); Carbon Dioxide 20.2 mmol/L (21.0-32.0); Chloride 90 mmol/L (98-108); Globulin 3.6 g/dL (2.2-4.2); Glucose 92 mg/dL (70-99); Lipase 88 U/L (13-75); Magnesium 2.0 mg/dL (1.5-2.2); Potassium 3.0 mmol/L (3.3-5.1)
[2025-08-14] MEDS: Potassium Chloride Oral Tablet 20 MEQ 40 MEQ PO ×2 (09:52→12:55)
[2025-08-14 10:28] LABS: BETA-HYDROXYBUTYRATE 3.0 mmol/L (0.0-0.3)
--- NOTE | 2025-08-14 11:14 | PCM.HP.STD ---
HPI - General General Date of Admission: 08/14/25 Date of Service: 08/14/25 Chief Complaint: Nausea vomiting HPI Narrative SLOAN WATERS, is a 55 M with past medical history signal for chronic alcohol dependence with multiple admissions for alcohol withdrawal, with patient last admission being on 05/05/2025 he apparently relapsed following discharge. Patient admits to drinking 1.75 L of vodka on a daily basis. He did develop abdominal discomfort with nausea and did find some pinkish material in his vomitus. His last drink was a day prior to coming in. He elected to present to the ED to undergo detox. Alcohol level in the ED was found to be 40. Diagnostic workup did reveal alcoholic ketosis. Patient subsequently admitted to regular nursing floor for further management [facility]LY [facility], [facility] Medical History Hypoxia Alcohol withdrawal Depression with anxiety Obesity (BMI 30-39.9) Tobacco abuse Polysubstance abuse Anxiety Depression Hypertension Home Medications ?Medication ?Instructions ?Recorded ?Last Taken ?Type hydroxyzine pamoate 25 mg capsule 25 mg PO TID PRN anxiety 12/17/23 08/07/25 History ibuprofen 600 mg tablet 600 mg PO TID PRN pain 12/17/23 08/07/25 History amlodipine 5 mg tablet 5 mg PO DAILY #30 tabs 05/08/25 08/07/25 Rx buspirone 10 mg tablet 10 mg PO BID 08/14/25 08/07/25 History duloxetine 30 mg capsule,delayed 30 mg PO QHS 08/14/25 08/07/25 History release duloxetine 60 mg capsule,delayed 60 mg PO DAILY 08/14/25 08/07/25 History release Allergy/AdvReac Type Severity Reaction Status Date / Time No Known Allergies Allergy Verified 08/14/25 08:23 Family History Other Alcoholism Social History Smoking Status: Current every day smoker tobacco type: cigarettes Smokeless tobacco user: other substance use type: marijuana and amphetamines ROS ROS Narrative GENERAL: denies fever, chills, night sweats, HEENT: denies headache, sinus congestion, RESPIRATORY: denies cough, sputum production, CARDIAC: denies chest pain, palpitations, orthopnea, PND GASTROINTESTINAL: abdominal pain, nausea, vomiting, GENITOURINARY: denies dysuria, urgency, frequency, heamaturia EXTREMITY: denies swelling MUSCULOSKELETAL: denies current joint pain or tenderness NEUROLOGIC: denies focal numbness, weakness, tingling HEMATOLOGIC: denies easy bruising and/or hemorrhage INTEGUMENT: denies rashes PSYCHIATRIC: denies suicidal or homicidal ideation Vital Signs Vital Signs Vital Signs: 08/14/25 08:23 08/14/25 09:22 08/14/25 10:05 Temperature 97.6 F L 98.9 F Temperature Source Temporal Oral Pulse Rate 114 H 89 80 Respiratory Rate 16 20 H 17 Blood Pressure 148/131 H 137/99 H 137/102 H Blood Pressure Mean 136 111 113 Blood Pressure Source Monitor Blood Pressure Position Semi-Fowlers Blood Pressure Location Right Arm Pulse Ox 97 98 97 Oxygen Delivery Method Room Air Room Air Room Air 08/14/25 10:56 Temperature Temperature Source Pulse Rate 82 Respiratory Rate 20 H Blood Pressure 130/106 H Blood Pressure Mean 114 Blood Pressure Source Blood Pressure Position Blood Pressure Location Pulse Ox 97 Oxygen Delivery Method Room Air Physical Exam Narrative GENERAL: cooperative HEENT: Atraumatic; normocephalic EYES; Anicteric, Normal Conjunctiva NECK; supple, normal thyroid, RESPIRATORY: Diminished to auscultation CARDIOVASCULAR: Regular S1 S2, GI: soft, normoactive bowel sounds, : No Renal angle tenderness; EXTREMITIES: No edema, no clubbing, MUSCULOSKELETAL: no muscle wasting NEURO: Awake; no lateralizing signs. SKIN: No Rash PSYCH; Flat affect Results Lab / Micro Data 08/14/25 08:35 08/14/25 08:35 Labs: Laboratory Results - last 24 hr 08/14/25 08:35: WBC 5.7, RBC 4.67, Hgb 14.8, Hct 41.0, MCV 87.8, MCH 31.7, MCHC 36.1 H, RDW Std Deviation 39.7, RDW Coeff of Jacy 12.3, Plt Count 196, MPV 9.8, Immature Gran % (Auto) 0.400, Neut % (Auto) 61.2, Lymph % (Auto) 27.3, [place] % (Auto) 8.1, Eos % (Auto) 1.8, Baso % (Auto) 1.2 H, Absolute Neuts (auto) 3.5, Absolute Lymphs (auto) 1.56, Nucleated RBC % 0, PT 14.5, INR 1.1, APTT 27.3, Sodium 137, Potassium 3.0 L, Chloride 90 L, Carbon Dioxide 20.2 L, Anion Gap 27 H, BUN 11, Creatinine 0.94, Est GFR (MDRD) Non-Af 95, BUN/Creatinine Ratio 12.1, Glucose 92, Calcium 9.6, Magnesium 2.0, Total Bilirubin 2.16 H, Direct Bilirubin 1.22 H, AST 292 H, ALT 144 H, Alkaline Phosphatase 92, Total Protein 8.3, Albumin 4.8, Globulin 3.6, Lipase 88 H, b-Hydroxybutyric mmol/L 3.0 H, Ethyl Alcohol 40.5 H Assessment & Plan Assessment/Plan (1) Elevated liver enzymes: (2) Acute hypokalemia: (3) Alcohol withdrawal: (4) Alcoholic ketosis: (5) Alcohol use disorder: (6) Desire for detoxification: PLAN: Plan Patient is a 55-year-old gentleman with history of chronic alcohol use disorder presenting with alcohol withdrawal and requesting to undergo detox 1. Acute alcohol withdrawal - Patient has been admitted for treatment with phenobarb taper in addition to adjuvant medications including gabapentin, Bentyl, hydroxyzine and clonidine as needed for alcohol withdrawal symptoms. Patient was also placed on thiamine and folic acid Consultation placed to 180 counseling services 2. Acute alcoholic transaminitis ? Monitoring with daily LFTs 3. Hypokalemia ? Secondary to decreased oral intake corrected per protocol repeat BMP ordered for a.m. 4. Acute alcoholic ketosis ? Patient started on IV hydration 5. Intractable nausea vomiting with questionable upper GI bleed ? Suspected to secondary to alcoholic gastritis. Patient started on PPI with plans for patient to follow-up with GI for endoscopic evaluation 6. Depression with anxiety ? Patient is on duloxetine continue 7. Hypertension ? Blood pressure controlled, home medications continued with dose adjustment as needed 8. Tobacco dependence ? Counseled on cessation, offered nicotine patch for tobacco cravings 9. DVT prophylaxis ? Low risk to encourage ambulation Time spent in the patient's overall evaluation,decision-making process, review of diagnostic data, adjustment of management, discussion with other providers, nursing nursing and ancillary staff involved in patient's care documentation, 75 Minutes Advance planning; did discuss with the patient regarding advanced directives as well as CODE STATUS. Did explain the various scenarios involved ( FULL CODE, DNR CCA, DNR CCA with no intubation, and DNR CC and what each meant) patient elected to remain full code with intubation and CPR if warranted. Order was placed. Time spent on discussion 16 minutes. Charges/Coding Multi Select Codes Visit Charges Visit Charges: 16700 Init Hosp Hospitalists' Procedures Procedures: 03568 Advncd Care Plan 30 Min
[2025-08-14] MEDS: Dextrose 5%/0.9% NaCl 1,000 ML 150 ML IV (11:16)
[2025-08-14 11:26] LABS: Squamous Epithelial Cells - UA 0 SEEN /hpf (0-5)
[2025-08-14 11:38] LABS: Color, Urine Amber (Yellow); Glucose, Dipstick Normal (Normal); Leukocyte Esterase-Dipstick 25 /ul (Negative); Nitrite-Dipstick Positive (Negative); Occult Blood-Urine 250 /ul (Negative); Protein-Dipstick 100 mg/dl (Negative); Specific Gravity, Urine 1.015 (1.002-1.030)
[2025-08-14 11:39] LABS: Urine Bilirubin Dipstick 3 mg/dL (Negative)
[2025-08-14 11:41] LABS: Ketone-Dipstick 150 mg/dl (Negative)
[2025-08-14 11:47] LABS: Mucous, Urine 1+ /hpf (<or=2+)
[2025-08-14 11:48] LABS: Red Blood Cells-Urine 10-25 SEEN /hpf (0-5)
[2025-08-14 12:04] LABS: Barbiturate Urine NEGATIVE (< 200 ng/mL); Benzodiazepine Urine NEGATIVE (< 200 ng/mL); PCP Urine NEGATIVE (< 25 ng/mL); THC Urine NEGATIVE (< 50 ng/mL)
[2025-08-14] MEDS: Lactated Ringers 1,000 ML 125 ML IV ×2 (12:56→21:17)
[2025-08-14] MEDS: Pantoprazole Sodium 40 MG in 0.9% Normal Saline (100mL MB+) 100 ML 300 MG IV ×2 (13:26→21:17)
[2025-08-14] MEDS: Potassium Chloride Oral Tablet 20 MEQ PO (16:53)
[2025-08-15 04:29] VITALS: BP 111/85; PULSE 70; RESP 18; TEMP 36.6; O2SAT 94
[2025-08-15] MEDS: Lactated Ringers 1,000 ML 125 ML IV (04:34)
--- NOTE | 2025-08-15 07:28 | PCM.PN.HOSP ---
Reason for Visit Chief Complaint: Nausea vomiting Subjective Subjective Patient is a 55-year-old gentleman with history of chronic alcohol dependence admitted with acute alcohol withdrawal admitted to regular nursing floor where patient is currently being managed per protocol. Seen this a.m. patient admits to improvement in his persistent nausea and vomiting. Objective Data Objective Data Vital Signs: Vital Signs Temp Pulse Resp BP Pulse Ox O2 Del Method 97.9 F 70 18 111/85 H 94 Room Air 08/15/25 04:29 08/15/25 04:29 08/15/25 04:29 08/15/25 04:29 08/15/25 04:29 08/15/25 04:29 Oxygen Delivery Method Room Air Weight: 98 kg Body Mass Index (BMI) 30.9 Intake & Output: Intake and Output for Last 24 Hours 08/13/25 08/14/25 08/15/25 23:59 23:59 23:59 Intake Total 2396.2 / 2396.2 910.42 / 910.42 Balance 2396.2 / 2396.2 910.42 / 910.42 Lab / Micro Data 08/14/25 08:35 08/14/25 08:35 Labs: Laboratory Results - last 24 hr 08/14/25 08:35: WBC 5.7, RBC 4.67, Hgb 14.8, Hct 41.0, MCV 87.8, MCH 31.7, MCHC 36.1 H, RDW Std Deviation 39.7, RDW Coeff of Jacy 12.3, Plt Count 196, MPV 9.8, Immature Gran % (Auto) 0.400, Neut % (Auto) 61.2, Lymph % (Auto) 27.3, [place] % (Auto) 8.1, Eos % (Auto) 1.8, Baso % (Auto) 1.2 H, Absolute Neuts (auto) 3.5, Absolute Lymphs (auto) 1.56, Nucleated RBC % 0, PT 14.5, INR 1.1, APTT 27.3, Sodium 137, Potassium 3.0 L, Chloride 90 L, Carbon Dioxide 20.2 L, Anion Gap 27 H, BUN 11, Creatinine 0.94, Est GFR (MDRD) Non-Af 95, BUN/Creatinine Ratio 12.1, Glucose 92, Calcium 9.6, Magnesium 2.0, Total Bilirubin 2.16 H, Direct Bilirubin 1.22 H, AST 292 H, ALT 144 H, Alkaline Phosphatase 92, Total Protein 8.3, Albumin 4.8, Globulin 3.6, Lipase 88 H, b-Hydroxybutyric mmol/L 3.0 H, Ethyl Alcohol 40.5 H 08/14/25 11:21: Urine Color [place], Urine Clarity Sl. Cloudy, Urine pH 6.5, Ur Specific [place] 1.015, Urine Protein 100 H, Urine Glucose (UA) Normal, Urine Ketones 150 A*, Urine Occult Blood 250 H, Urine Nitrite Positive H, Urine Bilirubin 3 H, Urine Urobilinogen 12 H, Ur Leukocyte Esterase 25 H, Urine RBC 10-25 SEEN, Urine WBC 0-5 SEEN, Ur Squamous Epith Cells 0 SEEN, Urine Bacteria 1+, Urine Mucus 1+, Urine Opiates Screen NEGATIVE, U Buprenorphine Qual NEGATIVE, Ur Oxycodone Screen NEGATIVE, Urine Methadone Screen NEGATIVE, Urine Fentanyl Screen NEGATIVE, Ur Barbiturates Screen NEGATIVE, Ur Phencyclidine Scrn NEGATIVE, Ur Amphetamines Screen NEGATIVE, U Benzodiazepines Scrn NEGATIVE, Urine Cocaine Screen NEGATIVE, U Cannabinoids Screen NEGATIVE Physical Exam Narrative GENERAL: cooperative HEENT: Atraumatic; normocephalic EYES; Anicteric, Normal Conjunctiva NECK; supple, normal thyroid, RESPIRATORY: Diminished to auscultation CARDIOVASCULAR: Regular S1 S2, GI: soft, normoactive bowel sounds, : No Renal angle tenderness; EXTREMITIES: No edema, no clubbing, MUSCULOSKELETAL: no muscle wasting NEURO: Awake; no lateralizing signs. SKIN: No Rash PSYCH; Flat affect Assessment & Plan Assessment/Plan (1) Elevated liver enzymes: (2) Acute hypokalemia: (3) Alcohol withdrawal: (4) Alcoholic ketosis: (5) Alcohol use disorder: (6) Desire for detoxification: PLAN: Plan Patient is a 55-year-old gentleman with history of chronic alcohol use disorder presenting with alcohol withdrawal and requesting to undergo detox 1. Acute alcohol withdrawal - Patient has been admitted for treatment with phenobarb taper in addition to adjuvant medications including gabapentin, Bentyl, hydroxyzine and clonidine as needed for alcohol withdrawal symptoms. Patient was also placed on thiamine and folic acid Consultation placed to 180 counseling services ? 08/15/2025; patient has tolerated the phenobarb taper well so far. 2. Acute alcoholic transaminitis ? Monitoring with daily LFTs ? 08/15/2025; a.m. labs still pending. 3. Hypokalemia ? Secondary to decreased oral intake corrected per protocol repeat BMP ordered for a.m. 4. Acute alcoholic ketosis ? Patient started on IV hydration 5. Intractable nausea vomiting with questionable upper GI bleed ? Suspected to secondary to alcoholic gastritis. Patient started on PPI with plans for patient to follow-up with GI for endoscopic evaluation ? 08/15/2025; patient symptoms did improve with PPI as well as symptomatic treatment with Zofran 6. Depression with anxiety ? Patient is on duloxetine continue 7. Hypertension ? Blood pressure controlled, home medications continued with dose adjustment as needed 8. Tobacco dependence ? Counseled on cessation, offered nicotine patch for tobacco cravings 9. DVT prophylaxis ? Low risk to encourage ambulation Time spent in the patient's overall evaluation,decision-making process, review of diagnostic data, adjustment of management, discussion with other providers, nursing nursing and ancillary staff involved in patient's care documentation, 40 Minutes Charges/Coding Visit Charges Inpatient E&M: 41001 Subs Hosp L2
[2025-08-15 07:43] VITALS: BP 142/84; PULSE 75; RESP 18; TEMP 36.1; O2SAT 98
[2025-08-15 07:51] LABS: Hematocrit 37.9 % (40-54); Hemoglobin 13.4 g/dL (13.0-16.5); Immature Granulocytes Count 0.030 X10^3/uL (0.0-0.0); Mean Corp Hgb Conc 35.4 g/dL (32-36); Mean Corpuscular Volume 90.0 fL (80-94); Mean Platelet Vol. 9.9 fl (6.2-12.0); NRBC Flagged by Analyzer 0 % (0-5); Platelet Count 138 K/mm3 (150-450); RBC Distribution Width CV 12.3 % (11.6-14.6); RBC Distribution Width SD 40.2 fl (35.1-43.9); Red Blood Count 4.21 M/mm3 (4.6-6.2); White Blood Count 3.7 K/mm3 (4.4-11.0)
[2025-08-15] MEDS: hydrOXYzine PAM 25 MG Capsule PO (07:53)
[2025-08-15] MEDS: Thiamine Hydrochloride 100 MG Tablet PO (07:54)
[2025-08-15] MEDS: Potassium Chloride Oral Tablet 20 MEQ PO ×2 (07:54→16:12)
[2025-08-15 08:24] LABS: Cholesterol 190 mg/dL (<=200); Low Density Lipoprotein Calc. 112 mg/dL; Magnesium 1.9 mg/dL (1.5-2.2); Triglycerides 162 mg/dL; Very Low Density Lipoprotein 32 mg/dL (5-40); cholesterol:hdl ratio screen 3.81
[2025-08-15 08:25] LABS: Anion Gap 13 (5-15); BUN 9 mg/dL (4-19); BUN/Creat Ratio 10.6 RATIO (10-20); Calcium,Total 9.0 mg/dL (7.6-11.0); Carbon Dioxide 25.9 mmol/L (21.0-32.0); Chloride 97 mmol/L (98-108); Estimated Creatinine Clearance 119.55 ml/min (50-250); Glucose 127 mg/dL (70-99); Potassium 3.5 mmol/L (3.3-5.1)
[2025-08-15] MEDS: Pantoprazole Sodium 40 MG in 0.9% Normal Saline (100mL MB+) 100 ML 300 MG IV ×2 (09:57→22:51)
[2025-08-15] MEDS: FLU VACCINE 2025-26(6MOS UP) 45 MCG/0.5 ML SYRINGE IM (12:34)
[2025-08-15] MEDS: Na Biphos/Potassium Phosphate PACKET 1 PACKET PO ×2 (14:30→22:51)
[2025-08-15] MEDS: 0.9% Saline Lock 10 ML Syringe IV ×2 (14:31→22:51)
[2025-08-15 16:14] VITALS: BP 122/89; PULSE 73; RESP 16; TEMP 36.3; O2SAT 95
[2025-08-15 20:27] VITALS: BP 136/93; PULSE 70; RESP 18; TEMP 36.5; O2SAT 68
[2025-08-16] VITALS (7 sets, daily range): BP systolic 107–139; BP diastolic 65–93; PULSE 71–85; RESP 14–16; TEMP 36.6–37.1; O2SAT 93–99
[2025-08-16] MEDS: hydrOXYzine PAM 25 MG Capsule PO ×2 (01:04→16:27)
[2025-08-16 05:42] LABS: Hematocrit 39.3 % (40-54); Hemoglobin 13.4 g/dL (13.0-16.5); Immature Granulocytes Count 0.010 X10^3/uL (0.0-0.0); Mean Corp Hgb Conc 34.1 g/dL (32-36); Mean Corpuscular Volume 91.8 fL (80-94); Mean Platelet Vol. 10.4 fl (6.2-12.0); NRBC Flagged by Analyzer 0 % (0-5); Platelet Count 151 K/mm3 (150-450); RBC Distribution Width CV 12.1 % (11.6-14.6); RBC Distribution Width SD 40.4 fl (35.1-43.9); Red Blood Count 4.28 M/mm3 (4.6-6.2); White Blood Count 4.5 K/mm3 (4.4-11.0)
--- NOTE | 2025-08-16 07:20 | PN.HOSP_ITS ---
Reason for Visit Chief Complaint: Nausea vomiting Subjective Subjective Patient diagnostic data residual for severe hypophosphatemia. Corrected per protocol. Patient still complains of some tremors. Nausea and vomiting resolved Objective Data Objective Data Vital Signs: Vital Signs Temp Pulse Resp BP Pulse Ox O2 Del Method 98.4 F 72 14 107/82 H 99 Room Air 08/16/25 04:36 08/16/25 04:36 08/16/25 04:36 08/16/25 04:36 08/16/25 04:36 08/16/25 04:36 Oxygen Delivery Method Room Air Weight: 98 kg Body Mass Index (BMI) 30.9 Intake & Output: Intake and Output for Last 24 Hours 08/14/25 08/15/25 08/16/25 23:59 23:59 23:59 Intake Total 2396.2 / 2396.2 2110.42 / 2110.42 Balance 2396.2 / 2396.2 2110.42 / 2110.42 Lab / Micro Data 08/16/25 05:06 08/16/25 05:06 Labs: Laboratory Results - last 24 hr 08/15/25 07:25: WBC 3.7 L, RBC 4.21 L, Hgb 13.4, Hct 37.9 L, MCV 90.0, MCH 31.8, MCHC 35.4, RDW Std Deviation 40.2, RDW Coeff of Jacy 12.3, Plt Count 138 L, MPV 9.9, Immature Gran % (Auto) 0.800, Neut % (Auto) 61.8, Lymph % (Auto) 26.4, [place] % (Auto) 7.0, Eos % (Auto) 2.7, Baso % (Auto) 1.3 H, Absolute Neuts (auto) 2.3, Absolute Lymphs (auto) 0.98, Nucleated RBC % 0, Sodium 135, Potassium 3.5, C hloride 97 L, Carbon Dioxide 25.9, Anion Gap 13, BUN 9, Creatinine 0.81, Estim Creat Clear Calc 119.55, Est GFR (MDRD) Non-Af 103, BUN/Creatinine Ratio 10.6, G lucose 127 H, Calcium 9.0, Phosphorus 1.4 L*, Magnesium 1.9, Triglycerides 162, Cholesterol 190, LDL Cholesterol, Calc 112, VLDL Cholesterol 32, HDL Cholesterol 50, Cholesterol/HDL Ratio 3.81 08/16/25 05:06: WBC 4.5, RBC 4.28 L, Hgb 13.4, Hct 39.3 L, MCV 91.8, MCH 31.3, MCHC 34.1, RDW Std Deviation 40.4, RDW Coeff of Jacy 12.1, Plt Count 151, MPV 10.4, Immature Gran % (Auto) 0.200, Neut % (Auto) 63.4, Lymph % (Auto) 24.6, [place] % (Auto) 7.4, Eos % (Auto) 3.1, Baso % (Auto) 1.3 H, Absolute Neuts (auto) 2.8, Absolute Lymphs (auto) 1.10, Nucleated RBC % 0 Physical Exam Narrative GENERAL: cooperative HEENT: Atraumatic; normocephalic EYES; Anicteric, Normal Conjunctiva NECK; supple, normal thyroid, RESPIRATORY: Diminished to auscultation CARDIOVASCULAR: Regular S1 S2, GI: soft, normoactive bowel sounds, : No Renal angle tenderness; EXTREMITIES: No edema, no clubbing, MUSCULOSKELETAL: no muscle wasting NEURO: Awake; no lateralizing signs. SKIN: No Rash PSYCH; Flat affect Assessment & Plan Assessment/Plan (1) Elevated liver enzymes: (2) Acute hypokalemia: (3) Alcohol withdrawal: (4) Alcoholic ketosis: (5) Alcohol use disorder: (6) Desire for detoxification: PLAN: Plan Patient is a 55-year-old gentleman with history of chronic alcohol use disorder presenting with alcohol withdrawal and requesting to undergo detox 1. Acute alcohol withdrawal - Patient has been admitted for treatment with phenobarb taper in addition to adjuvant medications including gabapentin, Bentyl, hydroxyzine and clonidine as needed for alcohol withdrawal symptoms. Patient was also placed on thiamine and folic acid Consultation placed to 180 counseling services ? 08/15/2025; patient has tolerated the phenobarb taper well so far. ? 08/16/2025; patient's weight is improving with some residual tremors. 2. Acute alcoholic transaminitis ? Monitoring with daily LFTs ? 08/15/2025; a.m. labs still pending. 3. Hypokalemia ? Secondary to decreased oral intake corrected per protocol repeat BMP ordered for a.m. 4. Acute alcoholic ketosis ? Patient started on IV hydration 5. Intractable nausea vomiting with questionable upper GI bleed ? Suspected to secondary to alcoholic gastritis. Patient started on PPI with plans for patient to follow-up with GI for endoscopic evaluation ? 08/15/2025; patient symptoms did improve with PPI as well as symptomatic treatment with Zofran ? 08/16/2025; nausea and vomiting resolved 6. Depression with anxiety ? Patient is on duloxetine continue 7. Hypertension ? Blood pressure controlled, home medications continued with dose adjustment as needed 8. Tobacco dependence ? Counseled on cessation, offered nicotine patch for tobacco cravings 9. DVT prophylaxis ? Low risk to encourage ambulation 10. Hypophosphatemia ? Secondary to chronic alcohol use. Corrected per protocol Time spent in the patient's overall evaluation,decision-making process, review of diagnostic data, adjustment of management, discussion with other providers, nursing nursing and ancillary staff involved in patient's care documentation,36 Minutes Charges/Coding Visit Charges Inpatient E&M: 02241 Subs Hosp L2
[2025-08-16 07:34] LABS: Anion Gap 17 (5-15); BUN 8 mg/dL (4-19); BUN/Creat Ratio 11.9 RATIO (10-20); Calcium,Total 8.7 mg/dL (7.6-11.0); Carbon Dioxide 20.7 mmol/L (21.0-32.0); Chloride 97 mmol/L (98-108); Estimated Creatinine Clearance 138.33 ml/min (50-250); Glucose 115 mg/dL (70-99); Potassium 3.5 mmol/L (3.3-5.1)
[2025-08-16] MEDS: Thiamine Hydrochloride 100 MG Tablet PO (07:55)
[2025-08-16] MEDS: Potassium Chloride Oral Tablet 20 MEQ PO ×2 (07:56→16:27)
[2025-08-16] MEDS: Nicotine (PBKC) 21 MG Patch TD (09:53)
[2025-08-16] MEDS: Na Biphos/Potassium Phosphate PACKET 1 PACKET PO ×2 (09:53→22:05)
[2025-08-16 12:40] LABS: Cholesterol 189 mg/dL (<=200); Low Density Lipoprotein Calc. 113 mg/dL; Triglycerides 169 mg/dL; Very Low Density Lipoprotein 34 mg/dL (5-40); cholesterol:hdl ratio screen 4.06
--- NOTE | 2025-08-16 15:09 | CASEMGMT ---
Social Work- SW met with pt to complete SDOH assessment. Pt reports that he completed [facility] programs through [facility] in December 2023 then moved in with his aunt and uncle in March 2025. Pt reports that he cannot find housing d/t lack of employment and housing history. Pt reports that he does work and can afford a studio apartment less than $1000/month. Pt reports that his uncle has offered to be a guarantor for three months as well. 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 Pt reports that he has not seen a counselor since January and has spent the previous two months drinking and screwing up my meds. Pt notes a diagnosis of depression and anxiety. Pt reports that he has been to a few inpatient programs and does really well until its time to transition to independent housing. SW provided a list of counselors, as well as [facility] housing information. FLORENTINO agreeable to meet with [facility] coordinator. NAOMY Mccullough
--- NOTE | 2025-08-16 18:59 | ADDICTION ---
Pt was met with to complete RAMP assessment, AUDIT, DUDIT, ASAM, MSE, and DC Plan. Pt was provided psychoeducation on neurobiology of addiction, mh comorbidities, and tx options. Pt was encouraged to consider inpatient tx d/t his mh comorbidities and extensive socioeconomic risk factors. However, Pt states that he is not motivated for residential or inpatient tx at this time and he would prefer to return to his Aunt and Uncle's home in [place] to look for independent housing/rental. Pt agreed to at minimum, f/u with outpatient [facility] and MH tx at [facility]. He is scheduled to f/u with Dr. Rodriguez at [facility] on 08/20/25.
[2025-08-17 02:42] VITALS: BP 117/75; PULSE 74; RESP 15; TEMP 36.6; O2SAT 95
[2025-08-17 05:31] LABS: Hematocrit 39.3 % (40-54); Hemoglobin 13.3 g/dL (13.0-16.5); Immature Granulocytes Count 0.020 X10^3/uL (0.0-0.0); Mean Corp Hgb Conc 33.8 g/dL (32-36); Mean Corpuscular Volume 91.4 fL (80-94); Mean Platelet Vol. 10.6 fl (6.2-12.0); NRBC Flagged by Analyzer 0 % (0-5); Platelet Count 172 K/mm3 (150-450); RBC Distribution Width CV 12.5 % (11.6-14.6); RBC Distribution Width SD 41.6 fl (35.1-43.9); Red Blood Count 4.30 M/mm3 (4.6-6.2); White Blood Count 5.3 K/mm3 (4.4-11.0)
[2025-08-17 05:56] LABS: Anion Gap 13 (5-15); BUN 8 mg/dL (4-19); BUN/Creat Ratio 13.9 RATIO (10-20); Calcium,Total 9.4 mg/dL (7.6-11.0); Carbon Dioxide 23.9 mmol/L (21.0-32.0); Chloride 98 mmol/L (98-108); Cholesterol 171 mg/dL (<=200); Estimated Creatinine Clearance 164.12 ml/min (50-250); Glucose 112 mg/dL (70-99); Low Density Lipoprotein Calc. 105 mg/dL; Potassium 3.7 mmol/L (3.3-5.1); Triglycerides 152 mg/dL; Very Low Density Lipoprotein 30 mg/dL (5-40); cholesterol:hdl ratio screen 4.43
--- NOTE | 2025-08-17 07:19 | DS.PCM_ITS ---
Providers Date of Admission: 08/14/25 Date of Discharge: 08/17/25 Primary Care Physician: Dr. Juanis Vazquez, Reason For Visit: ACUTE ALCOHOL WITHDRAWAL Diagnosis Discharge Diagnosis (1) Elevated liver enzymes: Status: Acute Code(s): R74.8 - Abnormal levels of other serum enzymes (2) Acute hypokalemia: Status: Acute Code(s): E87.6 - Hypokalemia (3) Alcohol withdrawal: Status: Acute Code(s): F10.939 - Alcohol use, unspecified with withdrawal, unspecified (4) Alcoholic ketosis: Status: Acute Code(s): E88.89 - Other specified metabolic disorders (5) Alcohol use disorder: Status: Acute Code(s): F10.90 - Alcohol use, unspecified, uncomplicated (6) Desire for detoxification: Status: Acute Plan Patient is a 55-year-old gentleman with history of chronic alcohol use disorder presenting with alcohol withdrawal and requesting to undergo detox 1. Acute alcohol withdrawal - Patient has been admitted for treatment with phenobarb taper in addition to adjuvant medications including gabapentin, Bentyl, hydroxyzine and clonidine as needed for alcohol withdrawal symptoms. Patient was also placed on thiamine and folic acid Consultation placed to [facility] counseling services ? 08/15/2025; patient has tolerated the phenobarb taper well so far. ? 08/16/2025; patient's weight is improving with some residual tremors. ? 08/17/2025 patient was assessed by addiction medicine service he was offered inpatient treatment he declined. Plan is for patient to call to follow-up with [facility]. He was also scheduled with Dr. Rodriguez at [facility] on 08/20/2025 2. Acute alcoholic transaminitis ? Monitoring with daily LFTs ? 08/15/2025; a.m. labs still pending. 3. Hypokalemia ? Secondary to decreased oral intake corrected per protocol repeat BMP ordered for a.m. 4. Acute alcoholic ketosis ? Patient started on IV hydration 5. Intractable nausea vomiting with questionable upper GI bleed ? Suspected to secondary to alcoholic gastritis. Patient started on PPI with plans for patient to follow-up with GI for endoscopic evaluation ? 08/15/2025; patient symptoms did improve with PPI as well as symptomatic treatment with Zofran ? 08/16/2025; nausea and vomiting resolved 6. Depression with anxiety ? Patient is on duloxetine continue 7. Hypertension ? Blood pressure controlled, home medications continued with dose adjustment as needed 8. Tobacco dependence ? Counseled on cessation, offered nicotine patch for tobacco cravings 9. DVT prophylaxis ? Low risk to encourage ambulation 10. Hypophosphatemia ? Secondary to chronic alcohol use. Corrected per protocol Time spent in the patient's overall evaluation,decision-making process, review of diagnostic data, adjustment of management, discussion with other providers, nursing nursing and ancillary staff involved in patient's care documentation,36 Minutes Medications at Discharge Home Medications hydroxyzine pamoate 25 mg capsule 25 mg PO TID PRN anxiety 12/17/23 ibuprofen 600 mg tablet 600 mg PO TID PRN pain 12/17/23 amlodipine 5 mg tablet 5 mg PO DAILY #30 tabs 05/08/25 buspirone 10 mg tablet 10 mg PO BID 08/14/25 duloxetine 30 mg capsule,delayed release 30 mg PO QHS 08/14/25 duloxetine 60 mg capsule,delayed release 60 mg PO DAILY 08/14/25 folic acid 1 mg tablet 1 mg PO DAILY@0800 #60 tabs 08/17/25 pantoprazole 40 mg tablet,delayed release 40 mg PO DAILY #60 tabs 08/17/25 potassium chloride 20 mEq tablet,extended release(part/cryst) 20 meq PO BIDCM #60 tabs 08/17/25 potassium, sodium phosphates 280 mg-160 mg-250 mg oral powder packet 1 packet PO BID #100 ea 08/17/25 thiamine HCl (vitamin B1) 100 mg tablet 100 mg PO DAILYCM #60 tabs 08/17/25 Physical Exam Narrative GENERAL: cooperative HEENT: Atraumatic; normocephalic EYES; Anicteric, Normal Conjunctiva NECK; supple, normal thyroid, RESPIRATORY: Diminished to auscultation CARDIOVASCULAR: Regular S1 S2, GI: soft, normoactive bowel sounds, : No Renal angle tenderness; EXTREMITIES: No edema, no clubbing, MUSCULOSKELETAL: no muscle wasting NEURO: Awake; no lateralizing signs. SKIN: No Rash PSYCH; Flat affect Medical Records Data Homelessness:: Sheltered Weight / BMI Weight Weight: 98 kg Body Mass Index (BMI) 30.9 ABG / Lab / Microbiology Data 08/17/25 04:52 08/17/25 04:52 Laboratory: Laboratory Results - last 24 hr 08/16/25 05:06: Triglycerides 169, Cholesterol 189, LDL Cholesterol, Calc 113, VLDL Cholesterol 34, HDL Cholesterol 47, Cholesterol/HDL Ratio 4.06 08/17/25 04:52: WBC 5.3, RBC 4.30 L, Hgb 13.3, Hct 39.3 L, MCV 91.4, MCH 30.9, MCHC 33.8, RDW Std Deviation 41.6, RDW Coeff of Jacy 12.5, Plt Count 172, MPV 10.6, Immature Gran % (Auto) 0.400, Neut % (Auto) 66.7, Lymph % (Auto) 20.2, M jaxon % (Auto) 10.1 H, Eos % (Auto) 1.5, Baso % (Auto) 1.1 H, Absolute Neuts (auto) 3.6, Absolute Lymphs (auto) 1.08, Nucleated RBC % 0, Sodium 135, Potassium 3.7, Chloride 98, Carbon Dioxide 23.9, Anion Gap 13, BUN 8, Creatinine 0.59 L, Estim Creat Clear Calc 164.12, Est GFR (MDRD) Non-Af 114, BUN/Creatinine Ratio 13.9, Glucose 112 H, Calcium 9.4, Triglycerides 152, Cholesterol 171, LDL Cholesterol, Calc 105, VLDL Cholesterol 30, HDL Cholesterol 39 L, Cholesterol/HDL Ratio 4.43 D/C Instructions Discharge Activity: Return to Normal Activity Call your doctor if you observe: Fever of 101 or Higher, Shortness of breath, Fainting spells and Chest pain DC O2, CPAP, BIPAP Needs Home O2 Discharge instructions: No Meaningful Use Info Meaningful Use Meaningful Use Diagnoses (Choose all that apply): None applicable Discharge Plan Admission Admit Date/Time: 08/14/25 11:10 Attending Provider: Umang Bassett Primary Care Provider: Juanis Vazquez Discharge Orders/Prescriptions Prescriptions: New folic acid 1 mg Tablet 1 mg PO DAILY@0800 Qty: 60 0RF potassium, sodium phosphates 280-160-250 mg Powder In Packet 1 packet PO BID Qty: 100 0RF thiamine HCl (vitamin B1) 100 mg Tablet 100 mg PO DAILYCM Qty: 60 0RF potassium chloride 20 mEq Tablet,Er Particles/Crystals 20 meq PO BIDCM Qty: 60 0RF pantoprazole 40 mg Tablet,Delayed Release (Dr/Ec) 40 mg PO DAILY Qty: 60 0RF Continued ibuprofen 600 mg tablet 600 mg PO TID PRN (Reason: pain) Patient Comments: PT ONLY TAKES 1-2 TIMES A DAY hydroxyzine pamoate 25 mg capsule 25 mg PO TID PRN (Reason: anxiety) amlodipine 5 mg Tablet 5 mg PO DAILY Qty: 30 0RF buspirone 10 mg tablet 10 mg PO BID duloxetine 30 mg capsule,delayed release(DR/EC) 30 mg PO QHS duloxetine 60 mg Capsule,Delayed Release(Dr/Ec) 60 mg PO DAILY Referrals / Follow Up: Juanis Vazquez DO [Primary Care Provider, Family Practice] - Within 2 Weeks Best Rodriguez MD [COURTESY STAFF PHYSICIAN, PSYCHIATRY] - 08/20/25 Disposition Disposition (needs filled in before D/C Order can be placed): Home, Self Care Charges/Coding Visit Charges Inpatient E&M: 82369 Disch Hosp >30min
[2025-08-17] MEDS: Thiamine Hydrochloride 100 MG Tablet PO (08:49)
[2025-08-17] MEDS: Na Biphos/Potassium Phosphate PACKET 1 PACKET PO ×2 (08:50→21:21)
[2025-08-17] MEDS: Potassium Chloride Oral Tablet 20 MEQ PO ×2 (08:50→14:57)
[2025-08-17] MEDS: Nicotine (PBKC) 21 MG Patch TD (08:51)
[2025-08-17] MEDS: hydrOXYzine PAM 25 MG Capsule PO (08:58)
[2025-08-17 09:00] VITALS: BP 123/90; PULSE 87; RESP 16; TEMP 36.5; O2SAT 99
[2025-08-17 12:55] VITALS: BP 130/88; PULSE 75; RESP 16; TEMP 36.6; O2SAT 98
[2025-08-17 16:55] VITALS: BP 126/85; PULSE 76; RESP 16; TEMP 36.6; O2SAT 98
[2025-08-17 20:55] VITALS: BP 131/90; PULSE 76; RESP 16; TEMP 36.7; O2SAT 96
[2025-08-17 21:09] VITALS: BP 131/90; PULSE 76; RESP 15; TEMP 36.7; O2SAT 96
[2025-08-18 04:00] VITALS: BP 130/91; PULSE 83; RESP 15; TEMP 36.6; O2SAT 96
[2025-08-18 04:03] VITALS: BP 130/91; PULSE 83; RESP 15; TEMP 36.6; O2SAT 96
--- NOTE | 2025-08-18 07:31 | PCM.PN.HOSP ---
Reason for Visit Chief Complaint: Nausea vomiting Subjective Subjective Late entry note for 08/17/2025 Patient was assessed for possible discharge home. Objective Data Objective Data Vital Signs: Vital Signs Temp Pulse Resp BP Pulse Ox O2 Del Method 97.9 F 83 15 130/91 H 96 Room Air 08/18/25 04:03 08/18/25 04:03 08/18/25 04:03 08/18/25 04:03 08/18/25 04:03 08/18/25 04:03 Oxygen Delivery Method Room Air Weight: 98 kg Body Mass Index (BMI) 30.9 Lab / Micro Data 08/17/25 04:52 08/17/25 04:52 Social Homelessness:: Sheltered Physical Exam Narrative GENERAL: cooperative HEENT: Atraumatic; normocephalic EYES; Anicteric, Normal Conjunctiva NECK; supple, normal thyroid, RESPIRATORY: Diminished to auscultation CARDIOVASCULAR: Regular S1 S2, GI: soft, normoactive bowel sounds, : No Renal angle tenderness; EXTREMITIES: No edema, no clubbing, MUSCULOSKELETAL: no muscle wasting NEURO: Awake; no lateralizing signs. SKIN: No Rash PSYCH; Flat affect Assessment & Plan Assessment/Plan (1) Elevated liver enzymes: (2) Acute hypokalemia: (3) Alcohol withdrawal: (4) Alcoholic ketosis: (5) Alcohol use disorder: (6) Desire for detoxification: PLAN: Plan Patient is a 55-year-old gentleman with history of chronic alcohol use disorder presenting with alcohol withdrawal and requesting to undergo detox 1. Acute alcohol withdrawal - Patient has been admitted for treatment with phenobarb taper in addition to adjuvant medications including gabapentin, Bentyl, hydroxyzine and clonidine as needed for alcohol withdrawal symptoms. Patient was also placed on thiamine and folic acid Consultation placed to [facility] counseling services ? 08/15/2025; patient has tolerated the phenobarb taper well so far. ? 08/16/2025; patient's weight is improving with some residual tremors. ? 08/17/2025 patient was assessed by addiction medicine service he was offered inpatient treatment he declined. Plan is for patient to call to follow-up with [facility]. He was also scheduled with Dr. Rodriguez at [facility] on 08/20/2025 2. Acute alcoholic transaminitis ? Monitoring with daily LFTs ? 08/15/2025; a.m. labs still pending. 3. Hypokalemia ? Secondary to decreased oral intake corrected per protocol repeat BMP ordered for a.m. 4. Acute alcoholic ketosis ? Patient started on IV hydration 5. Intractable nausea vomiting with questionable upper GI bleed ? Suspected to secondary to alcoholic gastritis. Patient started on PPI with plans for patient to follow-up with GI for endoscopic evaluation ? 08/15/2025; patient symptoms did improve with PPI as well as symptomatic treatment with Zofran ? 08/16/2025; nausea and vomiting resolved 6. Depression with anxiety ? Patient is on duloxetine continue 7. Hypertension ? Blood pressure controlled, home medications continued with dose adjustment as needed 8. Tobacco dependence ? Counseled on cessation, offered nicotine patch for tobacco cravings 9. DVT prophylaxis ? Low risk to encourage ambulation 10. Hypophosphatemia ? Secondary to chronic alcohol use. Corrected per protocol Charges/Coding Visit Charges Inpatient E&M: 01664 Subs Hosp L1
[2025-08-18] MEDS: Potassium Chloride Oral Tablet 20 MEQ PO (08:12)
[2025-08-18] MEDS: Thiamine Hydrochloride 100 MG Tablet PO (08:13)
[2025-08-18 09:27] VITALS: BP 117/77; PULSE 85; RESP 16; TEMP 36.5; O2SAT 97
== END 2025-08-18 15:25 | disposition home or self-care (01) | DRG 775 ==
LOC: ED 11:13 → MS3 11:47
PROVIDERS: Admitting Provider Internal Medicine; Emergency Provider Emergency Medicine; PCP Family Medicine; Visit Provider Internal Medicine
DX: F10.239 Alcohol dependence with withdrawal, unspecified (principal); E83.39 Other disorders of phosphorus metabolism; E88.89 Other specified metabolic disorders; I10 Essential (primary) hypertension; F32.A Depression, unspecified; K29.21 Alcoholic gastritis with bleeding; E87.6 Hypokalemia; F41.9 Anxiety disorder, unspecified; F17.210 Nicotine dependence, cigarettes, uncomplicated; Z79.899 Other long term (current) drug therapy; Y90.2 Blood alcohol level of 40-59 mg/100 ml
CPT/HCPCS: 36415; 80048; 80061; 80076; 80307; 81001; 82010; 82077; 83690; 83735; 84100; 85025; 85610; 85730; 93005; 99285; 99406; A4216; J2405